=== PATIENT | female | born 1995 | race Two or more races ===

== ENCOUNTER 2016-12-29 04:45 | Emergency (ER) | payer OTHER ==
[2016-12-29] MEDS ORDERED: SODIUM CHLORIDE 0.9% 1,000 ML IV ONE ×2 (04:57→06:31)
[2016-12-29] MEDS ORDERED: ONDANSETRON 4 MG/2 ML VIAL IVP STA (04:57)
[2016-12-29] MEDS ORDERED: KETOROLAC 60 MG/2 ML VIAL IVP STA (06:31)
[2016-12-29] MEDS ORDERED: KETOROLAC 60 MG/2 ML VIAL ONE (06:56)
[2016-12-29] MEDS: KETOROLAC 60 MG/2 ML VIAL IM STA ×2 (06:59→07:04)
== END 2016-12-29 07:34 | disposition home or self-care (01) ==
DX: R10.31 Right lower quadrant pain (principal); F32.9 Major depressive disorder, single episode, unspecified; F41.9 Anxiety disorder, unspecified; J45.909 Unspecified asthma, uncomplicated; K21.9 Gastro-esophageal reflux disease without esophagitis

== ENCOUNTER 2018-04-16 12:48 | Emergency (ER) | payer OTHER ==
[2018-04-16 13:21] LABS: BILIRUBIN,URINE NEGATIVE (NEGATIVE); GLUCOSE, URINE (UA) NEGATIVE (NEGATIVE); KETONES,URINE (UA) NEGATIVE (NEGATIVE); LEUKOCYTE ESTERASE, URINE NEGATIVE (NEGATIVE); NITRITE,URINE NEGATIVE (NEGATIVE); OCCULT BLOOD,URINE NEGATIVE (NEGATIVE); PROTEIN,URINE NEGATIVE (NEGATIVE); UROBILINOGEN,URINE 0.2 (NORMAL) E.U./dL (NORMAL)
[2018-04-16 13:24] LABS: CLARITY,URINE CLEAR (CLEAR); HCG UR QUAL NEGATIVE
--- NOTE | 2018-04-16 14:23 | XRAY Report ---
Procedure Date: 04/16/2018 Accession Number: [id number] / [id number] Procedure: XR - Chest 2 View X-Ray CPT Code: 97340 FULL RESULT: EXAM: CHEST RADIOGRAPHY EXAM DATE: 04/16/2018 02:12 PM. CLINICAL HISTORY: Cough, dyspnea. COMPARISON: 09/29/15 TECHNIQUE: 2 views. FINDINGS: Lungs/Pleura: No focal opacities evident. No pleural effusion. No pneumothorax. Normal volumes. Mediastinum: Heart and mediastinal contours are unremarkable. Other: None. IMPRESSION: No acute findings 2-view chest radiography when compared with 09/29/15. Clear lungs. [facility]
[2018-04-16 15:32] VITALS: BP 133/74
--- NOTE | 2018-04-16 15:34 | ED Physician Documentation ---
PD HPI URI - Stated complaint Stated Complaint: SOA - Chief complaint Chief Complaint: Resp - History obtained from History obtained from: Patient - History of Present Illness Timing - onset: How many days ago (5-6 days of worse breathing, cough, congested sound and some productive cough. has had asthma with exac the past 1- 2 weeks.) Timing duration: Days Timing details: Gradual onset, Still present Associated symptoms: Nasal congestion, Productive cough, Dyspnea. No: Fever, Chills, Sore throat, Swollen nodes, Hemoptysis, NVD, Bilateral edema Contributing factors: COPD / asthma. No: Sick contact, Travel Similar symptoms before: Has not had sx before Recently seen: Not recently seen Review of Systems Constitutional: denies: Fever, Chills, Myalgias Nose: reports: Congestion. 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, Other : Chronic bladder infection HEENT: None Psych: Depression, Anxiety, Panic attacks, Claustrophobia Musculoskeletal: None Derm: None - Past Surgical History Past Surgical History: Yes Ortho: Arthroscopic surgery HEENT: Other - Present Medications Home Medications: Ambulatory Orders Medication Instructions Recorded Confirmed cloNIDine [Catapres] 0.1 mg PO DAILY 01/09/14 12/29/16 Albuterol Sulfate 2 mg INH ONCE PRN 09/10/14 12/29/16 Sumatriptan Succinate [Imitrex] 25 mg PO DAILY PRN #10 tablet 11/19/14 12/29/16 Cholecalciferol (Vitamin D3) 5,000 unit PO DAILY 04/22/15 12/29/16 [Vitamin D] Promethazine [Phenergan] 25 mg PO Q6H PRN #10 tab 09/29/15 12/29/16 Ibuprofen [Motrin] 800 mg PO Q8H PRN #30 tablet 04/15/16 12/29/16 Estradiol 1 patch 12/29/16 Azithromycin [Zithromax] 250 mg PO DAILY #6 tablet 04/16/18 Benzonatate [Tessalon] 100 mg PO TID PRN #25 capsule 04/16/18 Dexamethasone [Decadron] 4 mg PO DAILY #5 tablet 04/16/18 - Allergies Allergies/Adverse Reactions: Allergies Allergy/AdvReac Type Severity Reaction Status Date / Time amoxicillin Allergy Unknown Verified 04/16/18 13:04 doxycycline Allergy Unknown Verified 04/16/18 13:04 Penicillins Allergy Rash Verified 04/16/18 13:04 hydrocodone bitartrate * AdvReac Severe Emesis Verified 04/16/18 13:04 [From Vicodin] - Social History Does the pt smoke?: No Smoking Status: Never smoker Does the pt drink ETOH?: Yes Does the pt have substance abuse?: No - Immunizations Immunizations are current?: Yes - POLST Patient has POLST: No PD ED PE NORMAL - Vitals Vital signs reviewed: Yes - General General: Alert and oriented X 3, Well developed/nourished - HEENT HEENT: Ears normal, Moist mucous membranes, Pharynx benign - Neck Neck: Supple, no meningeal sign - Cardiac Cardiac: RRR, No murmur - Respiratory Respiratory: No: Clear bilaterally (exp wheezing noted and some hilar/central congestion with coughing. ) - Abdomen Abdomen: Soft, Non tender - Derm Derm: Normal color, Warm and dry, No rash - Extremities Extremities: No tenderness to palpate, Normal ROM s pain, No edema, No calf tenderness / cord - Neuro Neuro: Alert and oriented X 3, No motor deficit, Normal speech Results - Vitals Vitals: Oxygen O2 Source Room air - Labs Labs: Laboratory Tests 04/16/18 13:08 Urine Color YELLOW Urine Clarity CLEAR Urine pH 6.0 Ur Specific [place] 1.025 Urine Protein NEGATIVE Urine Glucose (UA) NEGATIVE Urine Ketones NEGATIVE Urine Occult Blood NEGATIVE Urine Nitrite NEGATIVE Urine Bilirubin NEGATIVE Urine Urobilinogen 0.2 (NORMAL) Ur Leukocyte Esterase NEGATIVE Ur Microscopic Review NOT INDICATED Urine Culture Comments NOT INDICATED Urine HCG, Qual NEGATIVE - Rads (name of study) chest xray Radiology: Prelim report reviewed, EMP read contemporaneously (no infiltrates) PD MEDICAL DECISION MAKING - ED course Complexity details: reviewed results, considered differential (has asthma and cough and has had icnreased symptoms, productive cough and worse breathing. CXR clear without pneumonia but sounds like bronchitis symptoms and concern for bacterial component at this point. ), d/w patient - Sepsis Event Vital Signs: Oxygen O2 Source Room air Departure - Departure Disposition: 01 Home, Self Care Clinical Impression: Bronchitis Condition: Stable Record reviewed to determine appropriate education?: Yes Instructions: ED Upper Resp Infec Abx Tx Follow-Up: Fide Marshall ARNP [Primary Care Provider] - Prescriptions: Azithromycin [Zithromax] 250 mg PO DAILY #6 tablet Benzonatate [Tessalon] 100 mg PO TID PRN #25 capsule PRN Reason: Cough Dexamethasone [Decadron] 4 mg PO DAILY #5 tablet Comments: Continue your albuterol inhaler 2 puffs 4 times a day and extra times as needed. Drink lots of fluids. Zithromax antibiotic as prescribed for 5 days. Decadron steroid for bronchial inflammation for 5 days. Add Tessalon if needed for cough. Recheck if not improving over the next several days to week. Forms: Activity restrictions Discharge Date/Time: 04/16/18 16:06
[2018-04-16] MEDS ORDERED: DEXAMETHASONE 10 MG/ML VIAL PO STA (15:55)
[2018-04-16] MEDS ORDERED: BENZONATATE 100 MG CAPSULE PO STA (15:55)
[2018-04-16] MEDS ORDERED: CHERRY SYRUP 10 ML UDC PO ONE (16:02)
== END 2018-04-16 16:06 | disposition home or self-care (01) ==
LOC: ED 12:48
DX: J40 Bronchitis, not specified as acute or chronic (principal); Z79.51 Long term (current) use of inhaled steroids
CPT/HCPCS: 71046; 81003; 81025; 99283; A9270; 81001; 87086

== ENCOUNTER 2018-05-07 16:53 | Emergency (ER) | payer OTHER ==
[2018-05-07] MEDS ORDERED: LACTATED RINGERS 1,000 ML IV STA (18:43)
[2018-05-07] MEDS ORDERED: SODIUM CHLORIDE 0.9% 1,000 ML IV ONE (18:43)
[2018-05-07] MEDS ORDERED: LOPERAMIDE 2 MG CAPSULE PO STA (18:43)
[2018-05-07] MEDS ORDERED: ONDANSETRON 4 MG/2 ML VIAL IVP STA (18:43)
--- NOTE | 2018-05-07 18:44 | ED Physician Documentation ---
PD HPI NVD - Stated complaint Stated Complaint: VOMITING - Chief complaint Chief Complaint: Abd Pain - History obtained from History obtained from: Patient, Friend - History of Present Illness Timing - onset: Other (23-year-old woman with history of fibromyalgia and rheumatoid arthritis and gabapentin, hydroxyzine, and BuSpar presents with 3 days of vomiting and diarrhea. She denies abdominal pain except for hunger but she cannot keep anything down. There is no blood from either end. No sick contacts. She traveled to [place] about 2 weeks ago, otherwise no international travel. No rashes. Reportedly had a fever to 101 last night.) Review of Systems Constitutional: reports: Fever Cardiac: denies: Chest pain / pressure, Palpitations Respiratory: denies: Dyspnea, Cough GI: reports: Nausea, Vomiting, Diarrhea. 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, Other : Chronic bladder infection HEENT: None Psych: Depression, Anxiety, Panic attacks, Claustrophobia Musculoskeletal: None Derm: None - Past Surgical History Past Surgical History: Yes Ortho: Arthroscopic surgery HEENT: Other - Present Medications Home Medications: Ambulatory Orders Medication Instructions Recorded Confirmed Albuterol Sulfate 2 mg INH ONCE PRN 09/10/14 12/29/16 Estradiol 1 patch 12/29/16 Gabapentin 1,600 mg DAILY 05/07/18 05/07/18 Loperamide [Imodium] 2 mg PO QID PRN #10 capsule 05/07/18 Ondansetron Odt [Zofran] 4 mg TL Q6H PRN #10 tablet 05/07/18 busPIRone [Buspar] 15 mg DAILY 05/07/18 05/07/18 - Allergies Allergies/Adverse Reactions: Allergies Allergy/AdvReac Type Severity Reaction Status Date / Time amoxicillin Allergy Unknown Verified 04/16/18 13:04 doxycycline Allergy Unknown Verified 04/16/18 13:04 Penicillins Allergy Rash Verified 04/16/18 13:04 hydrocodone bitartrate * AdvReac Severe Emesis Verified 04/16/18 13:04 [From Vicodin] - Social History Does the pt smoke?: No Smoking Status: Never smoker Does the pt drink ETOH?: Yes Does the pt have substance abuse?: No - Immunizations Immunizations are current?: Yes - POLST Patient has POLST: No PD ED PE NORMAL - Vitals Vital signs reviewed: Yes - General General: Alert and oriented X 3, No acute distress - HEENT HEENT: Moist mucous membranes - Cardiac Cardiac: RRR (But tachycardic consistent with dehydration), No murmur - Respiratory Respiratory: No respiratory distress, Clear bilaterally - Abdomen Abdomen: Normal bowel sounds, Soft, Non tender - Derm Derm: No rash - Neuro Neuro: Alert and oriented X 3, Normal speech - Psych Psych: Normal mood, Normal affect Results - Vitals Vitals: Vital Signs - 24 hr 05/07/18 05/07/18 17:11 21:14 Temperature 37.1 C 37 C Heart Rate 112 H 100 Respiratory 20 16 Rate Blood Pressure 127/87 H 112/65 O2 Saturation 100 100 Oxygen O2 Source Room air - Labs Labs: Laboratory Tests 05/07/18 05/07/18 05/07/18 19:12 20:25 20:59 WBC 9.6 RBC 4.43 Hgb 14.3 Hct 40.5 MCV 91.3 MCH 32.3 H MCHC 35.4 RDW 12.5 Plt Count 237 MPV 7.6 L Neut # (Auto) 5.6 Lymph # (Auto) 3.3 [place] # (Auto) 0.7 Eos # (Auto) 0.0 Baso # (Auto) 0.0 Absolute Nucleated RBC 0.01 Nucleated RBC % 0.1 Sodium 135 Potassium 3.6 Chloride 106 Carbon Dioxide 18 L Anion Gap 11.0 BUN Not Reportable Creatinine Not Reportable Estimated GFR (MDRD) Not Reportable Glucose 73 Calcium 8.4 L Total Bilirubin 0.7 AST 20 ALT 19 Alkaline Phosphatase 62 Total Protein 6.2 L Albumin 3.1 L Globulin 3.1 Albumin/Globulin Ratio 1.0 Lipase 23 Urine Color DARK YELLOW Urine Clarity CLEAR Urine pH 6.5 Ur Specific [place] 1.025 Urine Protein TRACE Urine Glucose (UA) NEGATIVE Urine Ketones >=80 H Urine Occult Blood NEGATIVE Urine Nitrite NEGATIVE Urine Bilirubin MODERATE H Urine Urobilinogen 1 (NORMAL) Ur Leukocyte Esterase NEGATIVE Ur Microscopic Review NOT INDICATED Urine Culture Comments NOT INDICATED Urine HCG, Qual 05/07/18 21:00 WBC RBC Hgb Hct MCV MCH MCHC RDW Plt Count MPV Neut # (Auto) Lymph # (Auto) [place] # (Auto) Eos # (Auto) Baso # (Auto) Absolute Nucleated RBC Nucleated RBC % Sodium Potassium Chloride Carbon Dioxide Anion Gap BUN Creatinine Estimated GFR (MDRD) Glucose Calcium Total Bilirubin AST ALT Alkaline Phosphatase Total Protein Albumin Globulin Albumin/Globulin Ratio Lipase Urine Color Urine Clarity Urine pH Ur Specific [place] 1.025 Urine Protein Urine Glucose (UA) Urine Ketones Urine Occult Blood Urine Nitrite Urine Bilirubin Urine Urobilinogen Ur Leukocyte Esterase Ur Microscopic Review Urine Culture Comments Urine HCG, Qual NEGATIVE PD MEDICAL DECISION MAKING - ED course ED course: 23-year-old woman presents with vomiting and diarrhea and symptoms consistent with dehydration. She was administered IV fluids, Zofran and Imodium with improvement in her symptoms. Her initial blood draw was hemolyzed and had to be on and she had a panic attack during the redrawing was also administered Ativan with good improvement. She passed an oral challenge. She remained nontender on reevaluation prior to discharge. - Sepsis Event Vital Signs: Vital Signs - 24 hr 05/07/18 05/07/18 17:11 21:14 Temperature 37.1 C 37 C Heart Rate 112 H 100 Respiratory 20 16 Rate Blood Pressure 127/87 H 112/65 O2 Saturation 100 100 Oxygen O2 Source Room air Departure - Departure Disposition: Home, Self Care Clinical Impression: Dehydration, Gastroenteritis Condition: Good Record reviewed to determine appropriate education?: Yes Instructions: ED Dehydration, ED Gastroenteritis Viral Prescriptions: Loperamide [Imodium] 2 mg PO QID PRN #10 capsule PRN Reason: Diarrhea Ondansetron Odt [Zofran] 4 mg TL Q6H PRN #10 tablet PRN Reason: Nausea / Vomiting Comments: Call your doctor to arrange a follow-up appointment, make the next available appointment. In the interim, return anytime if worse or if new symptoms develop.
[2018-05-07 19:17] LABS: BASOPHILS % (AUTO) 0.5 %; EOSINOPHILS % (AUTO) 0.1 %; HGB - HEMOGLOBIN 14.3 g/dL (12.0-16.0); LYMPHOCYTES # (AUTO) 3.3 10^3/uL (1.5-3.5); LYMPHOCYTES % (AUTO) 33.9 %; MEAN CORPUSCULAR HEMOGLOBIN 32.3 pg (27.0-31.0); MEAN CORPUSCULAR HGB CONC 35.4 g/dL (32.0-36.0); MEAN CORPUSCULAR VOLUME 91.3 fL (81.0-99.0); MEAN PLATELET VOLUME 7.6 fL (7.9-10.8); MONOCYTES # (AUTO) 0.7 10^3/uL (0.0-1.0); MONOCYTES % (AUTO) 6.8 %; NEUTROPHILS # (AUTO) 5.6 10^3/uL (1.5-6.6); NEUTROPHILS % (AUTO) 58.7 %; PLT - PLATELET COUNT 237 10^3/uL (130-450); RED BLOOD COUNT 4.43 10^6/uL (4.20-5.40); RED CELL DISTRIBUTION WIDTH 12.5 % (12.0-15.0); WHITE BLOOD COUNT 9.6 x10^3/uL (4.8-10.8)
[2018-05-07] MEDS ORDERED: LORazepam 2 MG/ML VIAL IVP STA (19:36)
[2018-05-07 20:57] LABS: ALBUMIN 3.1 g/dL (3.2-5.5); ALKALINE PHOSPHATASE 62 IU/L (42-121); ALT ALANINE AMINOTRANSFERASE 19 IU/L (10-60); AST ASPARTATE AMINOTRANSFERASE 20 IU/L (10-42); BILIRUBIN,TOTAL 0.7 mg/dL (0.2-1.0); CALCIUM 8.4 mg/dL (8.5-10.3); CARBON DIOXIDE - CO2 18 mmol/L (21-32); CHLORIDE 106 mmol/L (101-111); GLUCOSE 73 mg/dL (70-100); LIPASE 23 U/L (22-51); SODIUM 135 mmol/L (135-145); TOTAL PROTEIN 6.2 g/dL (6.7-8.2)
[2018-05-07 21:06] LABS: GLUCOSE, URINE (UA) NEGATIVE (NEGATIVE); KETONES,URINE (UA) >=80 mg/dL (NEGATIVE); LEUKOCYTE ESTERASE, URINE NEGATIVE (NEGATIVE); NITRITE,URINE NEGATIVE (NEGATIVE); OCCULT BLOOD,URINE NEGATIVE (NEGATIVE); PH,URINE 6.5 PH (5.0-7.5); PROTEIN,URINE TRACE mg/dL (NEGATIVE); UROBILINOGEN,URINE 1 (NORMAL) E.U./dL (NORMAL)
[2018-05-07 21:07] LABS: CLARITY,URINE CLEAR (CLEAR)
[2018-05-07 21:10] LABS: BILIRUBIN,URINE MODERATE (NEGATIVE); ICTOTEST,URINE POSITIVE
[2018-05-07 21:38] LABS: HCG UR QUAL NEGATIVE
[2018-05-07] MEDS ORDERED: ONDANSETRON ODT 4 MG Prepack 2 TL STA (21:47)
[2018-05-07 22:27] VITALS: BP 112/75
== END 2018-05-07 22:28 | disposition home or self-care (01) ==
LOC: ED 16:53
DX: E86.0 Dehydration (principal); K52.9 Noninfective gastroenteritis and colitis, unspecified
CPT/HCPCS: 80053; 81003; 81025; 83690; 85025; 96361; 96374; 96375; 99283; A9270; J2060; J7120; 81001; 87086

== ENCOUNTER 2019-06-14 07:00 | Outpatient (CLI) | payer OTHER | END 2019-06-14 23:59 | disposition home or self-care (01) | LOC: LAB.R 07:00 | PROVIDERS: ATTEND Registered Nurse | DX: R30.0 Dysuria (principal) | CPT/HCPCS: 87086 ==

== ENCOUNTER 2019-07-11 01:02 | Emergency (ER) | payer OTHER ==
--- NOTE | 2019-07-11 01:26 | ED Physician Documentation ---
PD HPI BACK INJURY - Stated complaint Stated Complaint: BACK PAIN - History obtained from History obtained from: Patient, Family - History of Present Illness Location: Lower Type of injury: Fall Where injury occurred: Home Timing - onset: Today Timing - duration: Minutes Timing - details: Abrupt onset, Still present Quality: Pain, Spasm, Sharp Improved by: Rest, Immobilization Worsened by: Moving, Palpating Associated symptoms: No: Fever, Weakness, Numbness, Incontinent of urine, Unable to urinate, Hematuria, Incontinent of stool Contributing factors: No: Anticoagulated Similar symptoms before: Diagnosis (back spasm) Recently seen: Not recently seen - Additional information Additional information: Previously well 24-year-old female was dancing with her when she had a fall and she fell flat onto her back. She did this about 1 week ago or 6 days ago and she has had worsening pain and tonight it is intolerable. She does have some allergy to hydrocodone which makes her vomit violently she is able to take Percocet. She has been using a heating pack tonight but had not been using it previously. She has pain when she goes to move. She has been going to work and the pain is worsening. 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, Other : Chronic bladder infection HEENT: None Psych: Depression, Anxiety, Panic attacks, Claustrophobia Musculoskeletal: None Derm: None - Past Surgical History Past Surgical History: Yes Ortho: Arthroscopic surgery HEENT: Other - Present Medications Home Medications: Ambulatory Orders Medication Instructions Recorded Confirmed Albuterol Sulfate 2 mg INH ONCE PRN 09/10/14 12/29/16 Estradiol 1 patch 12/29/16 Gabapentin 1,600 mg DAILY 05/07/18 05/07/18 Loperamide [Imodium] 2 mg PO QID PRN #10 capsule 05/07/18 Ondansetron Odt [Zofran] 4 mg TL Q6H PRN #10 tablet 05/07/18 busPIRone [Buspar] 15 mg DAILY 05/07/18 05/07/18 Cyclobenzaprine [Flexeril] 10 mg PO TID PRN #20 tablet 07/11/19 Oxycodone HCl/Acetaminophen 1 - 2 each PO Q6H PRN #14 tablet 07/11/19 [Percocet 5-325 mg Tablet] - Allergies Allergies/Adverse Reactions: Allergies Allergy/AdvReac Type Severity Reaction Status Date / Time amoxicillin Allergy Unknown Verified 07/11/19 01:11 doxycycline Allergy Unknown Verified 07/11/19 01:11 Penicillins Allergy Rash Verified 07/11/19 01:11 hydrocodone bitartrate * AdvReac Severe Emesis Verified 07/11/19 01:11 [From Vicodin] - Social History Does the pt smoke?: No Smoking Status: Never smoker Does the pt drink ETOH?: Yes Does the pt have substance abuse?: No - Immunizations Immunizations are current?: Yes - POLST Patient has POLST: No PD ED PE NORMAL - Vitals Vital signs reviewed: Yes (hypertensive) - General General: Alert and oriented X 3, No acute distress, Well developed/nourished - HEENT HEENT: Atraumatic, PERRL, EOMI - Neck Neck: Supple, no meningeal sign, No bony TTP - Respiratory Respiratory: No respiratory distress - Back Back: No CVA TTP, No spinal TTP, Other (There is paraspinous muscle tenderness to the lower lumbar spine bilaterally there is not midline tenderness. 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, No motor deficit, No sensory deficit, Normal speech Eye Opening: Spontaneous Motor: Obeys Commands Verbal: Oriented GCS Score: 15 - Psych Psych: Normal mood, Normal affect Results - Vitals Vitals: Vital Signs - 24 hr 07/11/19 07/11/19 01:09 02:33 Temperature 37 C Heart Rate 80 76 Respiratory 17 16 Rate Blood Pressure 124/91 H 114/91 H O2 Saturation 100 100 Oxygen O2 Source Room air - Rads (name of study) lumbar spine Radiology: Prelim report reviewed (Impression: Normal lumbar spine radiography), EMP read indepedently, See rad report PD MEDICAL DECISION MAKING - ED course Complexity details: reviewed results, re-evaluated patient, considered differential, d/w patient, d/w family ED course: 24-year-old female with a fall and worsening back pain appears to have spasm in the lower lumbar muscles. She is administered dexamethasone 10 mg PO and Toradol 60 mg IM. She has a history of worsening of her back pain and with this fall a lumbar spine x-ray is obtained to rule out compression fracture. Departure - Departure Disposition: 01 Home, Self Care Clinical Impression: Lumbar spine strain Qualifiers: Encounter type: initial encounter Qualified Code(s): S39.012A - Strain of muscle, fascia and tendon of lower back, initial encounter Condition: Stable Instructions: ED Low Back Pain Injury, ED Sprain Strain Lumbar Follow-Up: Lorrie Monaco ARNP [Primary Care Provider] - Prescriptions: Cyclobenzaprine [Flexeril] 10 mg PO TID PRN #20 tablet PRN Reason: Spasms Oxycodone HCl/Acetaminophen [Percocet 5-325 mg Tablet] 1 - 2 each PO Q6H PRN #14 tablet PRN Reason: pain Forms: Activity restrictions
[2019-07-11] MEDS ORDERED: DEXAMETHASONE 10 MG/ML VIAL PO STA (01:36)
[2019-07-11] MEDS ORDERED: KETOROLAC 60 MG/2 ML VIAL IM STA (01:36)
[2019-07-11] MEDS ORDERED: CHERRY SYRUP 10 ML UDC PO ONE (01:36)
[2019-07-11] MEDS ORDERED: CYCLOBENZAPRINE 10 MG Prepack 2 PO PRN (02:20)
[2019-07-11] MEDS ORDERED: oxyCODONE/ACET 5/325 Prepack 4 PO STA (02:20)
--- NOTE | 2019-07-11 02:26 | XRAY Report ---
Reason: fall low back pain worsening Procedure Date: 07/11/2019 Accession Number: [id number] / [id number] Procedure: XR - Lumbar Spine 2 View CPT Code: Final Report FULL RESULT: EXAM: LUMBOSACRAL SPINE RADIOGRAPHY EXAM DATE: 07/11/2019 02:08 AM. CLINICAL HISTORY: Fall low back pain worsening. COMPARISONS: None. TECHNIQUE: 3 views. FINDINGS: Alignment: Normal. No spondylolisthesis or scoliosis. Bones: Five [id number] lumbar vertebral bodies are present. No fractures or bone lesions. Disks: Normal. Disk heights are maintained. Facets: No degenerative changes. Sacroiliac Joints: Unremarkable. Soft Tissues: Normal. The visualized bowel gas pattern is normal. IMPRESSION: Normal lumbar spine radiography. [facility]
[2019-07-11 02:34] VITALS: BP 114/91
== END 2019-07-11 02:34 | disposition home or self-care (01) ==
LOC: ED 01:02
DX: S39.012A Strain of muscle, fascia and tendon of lower back, initial encounter (principal); W18.39XA Other fall on same level, initial encounter; Y93.41 Activity, dancing; Y92.009 Unspecified place in unspecified non-institutional (private) residence as the place of occurrence of the external cause; M62.830 Muscle spasm of back; Z88.5 Allergy status to narcotic agent
CPT/HCPCS: 72100; 96372; 99283; 99284; A9270

== ENCOUNTER 2019-08-08 12:36 | Emergency (ER) | payer OTHER ==
[2019-08-08 12:46] VITALS: BP 111/71
--- NOTE | 2019-08-08 13:29 | ED Physician Documentation ---
PD HPI ABD PAIN - Stated complaint Stated Complaint: ABD PX/BACK PX/DIZZY - Chief complaint Chief Complaint: Abd Pain - History obtained from History obtained from: Patient - History of Present Illness Timing - onset: How many weeks ago (several weeks) Timing - duration: Weeks Timing - details: Gradual onset Pain level max: 8 Pain level now: 2 Quality: Aching, Pain Location: Epigastric Radiation: No: Chest, , Lower back, Left flank, Left shoulder, Right flank, Right shoulder, Upper back Improved by: Other (nothing) Worsened by: Eating Associated symptoms: Vomiting (occasionally when the pain is severe). No: Fever, Nausea, Hematemesis, Diarrhea, Constipation, Melena, Hematochezia, Dysuria, Hematuria, Chest pain, Dizzy, Near syncope / syncope, Loss of appetite, Weight loss, Vaginal bleeding, Vaginal dc Similar symptoms before: Has not had sx before Recently seen: Clinic (seen by PCP x 2) Review of Systems Constitutional: denies: Fever, Chills Nose: denies: Rhinorrhea / runny nose, Congestion GI: denies: Diarrhea, Hematemesis, Bloody / black stool Skin: denies: Rash Musculoskeletal: denies: Neck pain, Back pain Neurologic: denies: Generalized weakness 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, Other [employer]: Ovarian cysts, Other : Chronic bladder infection HEENT: None Psych: Depression, Anxiety, Panic attacks, Claustrophobia Musculoskeletal: Fibromyalgia, Other Derm: None Other Past Medical History: Lupus - Past Surgical History Past Surgical History: Yes Ortho: Arthroscopic surgery HEENT: Other - Present Medications Home Medications: Ambulatory Orders Medication Instructions Recorded Confirmed Albuterol Sulfate 2 mg INH ONCE PRN 09/10/14 12/29/16 Estradiol 1 patch 12/29/16 Gabapentin 1,600 mg DAILY 05/07/18 05/07/18 Loperamide [Imodium] 2 mg PO QID PRN #10 capsule 05/07/18 Ondansetron Odt [Zofran] 4 mg TL Q6H PRN #10 tablet 05/07/18 busPIRone [Buspar] 15 mg DAILY 05/07/18 05/07/18 Cyclobenzaprine [Flexeril] 10 mg PO TID PRN #20 tablet 11/14/19 Oxycodone HCl/Acetaminophen 1 - 2 each PO Q6H PRN #14 tablet 07/11/19 [Percocet 5-325 mg Tablet] Famotidine [Pepcid] 20 mg PO BID #60 tablet 08/08/19 Hyoscyamine Sulfate [Levsin-Sl] 0.125 mg SL Q6H PRN #14 tab.subl 08/08/19 Sucralfate [Carafate] 1 gm PO ACHS #60 tablet 08/08/19 - Allergies Allergies/Adverse Reactions: Allergies Allergy/AdvReac Type Severity Reaction Status Date / Time amoxicillin Allergy Unknown Verified 08/08/19 12:46 doxycycline Allergy Unknown Verified 08/08/19 12:46 Penicillins Allergy Rash Verified 08/08/19 12:46 hydrocodone bitartrate * AdvReac Severe Emesis Verified 08/08/19 12:46 [From Vicodin] - Social History Does the pt smoke?: No Smoking Status: Never smoker Does the pt drink ETOH?: Yes Does the pt have substance abuse?: Yes Substance Use and Type: Marijuana - Immunizations Immunizations are current?: Yes - POLST Patient has POLST: No PD ED PE NORMAL - Vitals Vital signs reviewed: Yes - General General: Alert and oriented X 3, No acute distress, Well developed/nourished - HEENT HEENT: PERRL, Ears normal, Moist mucous membranes, Pharynx benign - Neck Neck: Supple, no meningeal sign - Cardiac Cardiac: RRR, Strong equal pulses - Respiratory Respiratory: No respiratory distress, Clear bilaterally - Abdomen Abdomen: Normal bowel sounds, Soft, Non tender, Non distended - Back Back: No CVA TTP, No spinal TTP - Derm Derm: Warm and dry - Extremities Extremities: No edema - Neuro Neuro: Alert and oriented X 3 - Psych Psych: Normal mood, Normal affect Results - Vitals Vitals: Vital Signs - 24 hr 08/08/19 12:41 Temperature 36.6 C Heart Rate 75 Respiratory 16 Rate Blood Pressure 111/71 O2 Saturation 98 Oxygen O2 Source Room air - Labs Labs: Laboratory Tests 08/08/19 08/08/19 08/08/19 12:55 13:35 13:35 WBC 6.1 RBC 3.83 L Hgb 12.7 Hct 36.4 L MCV 95.0 MCH 33.2 H MCHC 34.9 RDW 12.2 Plt Count 277 MPV 9.4 Neut # (Auto) 3.0 Lymph # (Auto) 2.7 [place] # (Auto) 0.3 Eos # (Auto) 0.1 Baso # (Auto) 0.0 Absolute Nucleated RBC 0.00 Nucleated RBC % 0.0 Sodium 138 Potassium 3.8 Chloride 109 Carbon Dioxide 21 Anion Gap 8.0 BUN 11 Creatinine 0.6 Estimated GFR (MDRD) 123 Glucose 94 Calcium 8.5 Total Bilirubin 0.6 AST 16 ALT 12 Alkaline Phosphatase 52 Total Protein 6.8 Albumin 3.5 Globulin 3.3 Albumin/Globulin Ratio 1.1 Lipase 24 Urine Color YELLOW Urine Clarity CLEAR Urine pH 7.0 Ur Specific [place] 1.010 Urine Protein NEGATIVE Urine Glucose (UA) NEGATIVE Urine Ketones NEGATIVE Urine Occult Blood NEGATIVE Urine Nitrite NEGATIVE Urine Bilirubin NEGATIVE Urine Urobilinogen 0.2 (NORMAL) Ur Leukocyte Esterase NEGATIVE Ur Microscopic Review NOT INDICATED Urine Culture Comments NOT INDICATED Urine HCG, Qual NEGATIVE PD MEDICAL DECISION MAKING - ED course Complexity details: reviewed results, re-evaluated patient, considered differential, d/w patient ED course: Patient presents to the emergency department with abdominal pain. Possible gastritis? Possible IBS? We will trial on H2 blockers for home. No significant lab abnormalities. She is very well-appearing, nontoxic. Abdomen soft, nontender nondistended on serial exam. Patient counseled regarding signs and symptoms for which I believe and urgent re-evaluation would be necessary. Patient with good understanding of and agreement to plan and is comfortable going home at this time This document was made in part using voice recognition software. While efforts are made to proofread this document, sound alike and grammatical errors may occur. Departure - Departure Disposition: 01 Home, Self Care Clinical Impression: Abdominal pain Qualifiers: Abdominal location: unspecified location Qualified Code(s): R10.9 - Unspecified abdominal pain Condition: Good Instructions: ED Abdominal Pain Unkn Cause Follow-Up: Lorrie Monaco ARNP [Primary Care Provider] - Within 1 week Prescriptions: Famotidine [Pepcid] 20 mg PO BID #60 tablet Hyoscyamine Sulfate [Levsin-Sl] 0.125 mg SL Q6H PRN #14 tab.subl PRN Reason: Abdominal Pain Sucralfate [Carafate] 1 gm PO ACHS #60 tablet Comments: The cause of your symptoms is unclear. It may be related to gastritis. Your doctor may want to order an endoscopy and colonoscopy for you. Return if you worsen. Discharge Date/Time: 08/08/19 14:56
[2019-08-08] MEDS: LIDOCAINE VISCOUS 2% 15 ML UDC MM STA ×2 (13:35→14:12)
[2019-08-08] MEDS: FAMOTIDINE 20 MG TABLET PO STA ×2 (13:35→13:40)
[2019-08-08] MEDS: SUCRALFATE 1 GM/10 ML UDC PO STA ×2 (13:35→13:40)
[2019-08-08] MEDS: MAG HYDROX/AL HYDROX/SIMETH 30 ML UDC PO STA ×2 (13:35→14:12)
[2019-08-08 13:41] LABS: BASOPHILS % (AUTO) 0.5 %; EOSINOPHILS # (AUTO) 0.1 10^3/uL (0.0-0.7); EOSINOPHILS % (AUTO) 1.3 %; HGB - HEMOGLOBIN 12.7 g/dL (12.0-16.0); LYMPHOCYTES # (AUTO) 2.7 10^3/uL (1.5-3.5); LYMPHOCYTES % (AUTO) 44.7 %; MEAN CORPUSCULAR HEMOGLOBIN 33.2 pg (27.0-31.0); MEAN CORPUSCULAR HGB CONC 34.9 g/dL (32.0-36.0); MEAN PLATELET VOLUME 9.4 fL (7.9-10.8); MONOCYTES # (AUTO) 0.3 10^3/uL (0.0-1.0); MONOCYTES % (AUTO) 4.8 %; NEUTROPHILS % (AUTO) 48.5 %; PLT - PLATELET COUNT 277 10^3/uL (130-450); RED BLOOD COUNT 3.83 10^6/uL (4.20-5.40); RED CELL DISTRIBUTION WIDTH 12.2 % (12.0-15.0); WHITE BLOOD COUNT 6.1 x10^3/uL (4.8-10.8)
[2019-08-08 13:53] LABS: BILIRUBIN,URINE NEGATIVE (NEGATIVE); GLUCOSE, URINE (UA) NEGATIVE (NEGATIVE); KETONES,URINE (UA) NEGATIVE (NEGATIVE); LEUKOCYTE ESTERASE, URINE NEGATIVE (NEGATIVE); NITRITE,URINE NEGATIVE (NEGATIVE); OCCULT BLOOD,URINE NEGATIVE (NEGATIVE); PROTEIN,URINE NEGATIVE (NEGATIVE); UROBILINOGEN,URINE 0.2 (NORMAL) E.U./dL (NORMAL)
[2019-08-08 13:53] LABS: ALBUMIN 3.5 g/dL (3.2-5.5); ALBUMIN/GLOBULIN RATIO 1.1 (1.0-2.2); BILIRUBIN,TOTAL 0.6 mg/dL (0.2-1.0); CALCIUM 8.5 mg/dL (8.5-10.3); CREATININE 0.6 mg/dL (0.4-1.0); TOTAL PROTEIN 6.8 g/dL (6.7-8.2)
[2019-08-08 13:56] LABS: CLARITY,URINE CLEAR (CLEAR); HCG UR QUAL NEGATIVE
== END 2019-08-08 14:56 | disposition home or self-care (01) ==
LOC: ED 12:36
DX: R10.9 Unspecified abdominal pain (principal)
CPT/HCPCS: 36415; 80053; 81003; 81025; 83690; 85025; 99283; 99284; A9270; 81001; 87086

== ENCOUNTER 2019-09-25 04:00 | Emergency (ER) | payer OTHER ==
[2019-09-25] MEDS ORDERED: ONDANSETRON 4 MG/2 ML VIAL IVP STA (04:20)
[2019-09-25] MEDS ORDERED: SODIUM CHLORIDE 0.9% 1,000 ML IV STA (04:20)
--- NOTE | 2019-09-25 04:20 | ED Physician Documentation ---
History of Present Illness - Stated complaint Stated Complaint: FEVER - Chief complaint Chief Complaint: General - History obtained from History obtained from: Patient (24-year-old History of lupus presented with 1 day history of fever, cough, congestion, rhinorrhea. According to her over the last few hours, she is not able to drink any fluid. Every time she drinks she vomits up. She also coughed to the point she vomited. There has been no sick contact recently. In emergency room she is complained of mild abdominal discomfort the right upper quadrant. No hematuria no dysuria.) - History of Present Illness Timing: Today Pain level max: 6 Pain level now: 6 Review of Systems Ten Systems: 10 systems reviewed and negative Constitutional: reports: Reviewed and negative Eyes: reports: Reviewed and negative Ears: reports: Reviewed and negative Nose: reports: Reviewed and negative Throat: reports: Reviewed and negative Cardiac: reports: Reviewed and negative Respiratory: reports: Reviewed and negative GI: reports: Abdominal Pain, Nausea, Vomiting, Reviewed and negative : reports: Reviewed and negative Skin: reports: Reviewed and negative Musculoskeletal: reports: Reviewed and negative Neurologic: reports: Reviewed and negative Psychiatric: reports: Reviewed and negative Endocrine: reports: Reviewed and negative Immunocompromised: reports: Reviewed and negative 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, 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, Other : Chronic bladder infection HEENT: None Psych: Depression, Anxiety, Panic attacks, Claustrophobia Musculoskeletal: Fibromyalgia, Other Derm: None - Past Surgical History Past Surgical History: Yes Ortho: Arthroscopic surgery HEENT: Other - Present Medications Home Medications: Ambulatory Orders Medication Instructions Recorded Confirmed Albuterol Sulfate 2 mg INH ONCE PRN 09/10/14 12/29/16 estradioL [Estradiol] 1 patch 12/29/16 Gabapentin 1,600 mg DAILY 05/07/18 05/07/18 Loperamide [Imodium] 2 mg PO QID PRN #10 capsule 05/07/18 Ondansetron Odt [Zofran] 4 mg TL Q6H PRN #10 tablet 05/07/18 busPIRone [Buspar] 15 mg DAILY 05/07/18 05/07/18 Cyclobenzaprine [Flexeril] 10 mg PO TID PRN #20 tablet 07/11/19 Oxycodone HCl/Acetaminophen 1 - 2 each PO Q6H PRN #14 tablet 07/11/19 [Percocet 5-325 mg Tablet] Famotidine [Pepcid] 20 mg PO BID #60 tablet 08/08/19 Hyoscyamine Sulfate [Levsin-Sl] 0.125 mg SL Q6H PRN #14 tab.subl 08/08/19 Sucralfate [Carafate] 1 gm PO ACHS #60 tablet 08/08/19 Azithromycin [Zithromax] 250 mg PO DAILY #4 tablet 09/25/19 - Allergies Allergies/Adverse Reactions: Allergies Allergy/AdvReac Type Severity Reaction Status Date / Time amoxicillin Allergy Unknown Verified 08/08/19 12:46 doxycycline Allergy Unknown Verified 08/08/19 12:46 Penicillins Allergy Rash Verified 08/08/19 12:46 hydrocodone bitartrate * AdvReac Severe Emesis Verified 08/08/19 12:46 [From Vicodin] - Social History Does the pt smoke?: No Smoking Status: Never smoker Does the pt drink ETOH?: Yes Does the pt have substance abuse?: Yes - Immunizations Immunizations are current?: Yes - POLST Patient has POLST: No PD ED PE NORMAL - Vitals Vital signs reviewed: Yes - General General: Alert and oriented X 3, No acute distress - HEENT HEENT: PERRL, Other (Dry oral mucosa) - Neck Neck: Supple, no meningeal sign - Cardiac Cardiac: RRR, No murmur - Respiratory Respiratory: Clear bilaterally - Abdomen Abdomen: Normal bowel sounds, Soft, Non tender (Right upper quadrant abdominal discomfort on deep palpation), Non distended - Derm Derm: Warm and dry - Extremities Extremities: No deformity - Neuro Neuro: Alert and oriented X 3 - Psych Psych: Normal mood, Normal affect Results - Vitals Vitals: Vital Signs - 24 hr 09/25/19 09/25/19 04:11 06:55 Temperature 37.3 C 37.0 C Heart Rate 135 H 129 H Respiratory 26 H 16 Rate Blood Pressure 119/86 H 105/62 O2 Saturation 97 99 Oxygen O2 Source Room air - EKG (time done) No standard instances Rate: Rate (enter#) (126) Rhythm: Sinus tachycardia [place]: Normal Intervals: Normal [place] QRS: Normal Ischemia: Normal ST segments - Labs Labs: Laboratory Tests 09/25/19 09/25/19 09/25/19 04:30 04:30 04:30 WBC 14.2 H RBC 4.16 L Hgb 13.4 Hct 38.7 MCV 93.0 MCH 32.2 H MCHC 34.6 RDW 12.0 Plt Count 288 MPV 9.2 Neut # (Auto) 11.9 H Lymph # (Auto) 1.5 [place] # (Auto) 0.6 Eos # (Auto) 0.0 Baso # (Auto) 0.0 Absolute Nucleated RBC 0.00 Nucleated RBC % 0.0 Sodium 133 L Potassium 3.4 L Chloride 100 L Carbon Dioxide 22 Anion Gap 11.0 BUN 6 Creatinine 0.7 Estimated GFR (MDRD) 103 Glucose 114 H Calcium 8.6 Total Bilirubin 0.5 AST 15 ALT 12 Alkaline Phosphatase 57 Total Protein 7.0 Albumin 3.6 Globulin 3.4 Albumin/Globulin Ratio 1.1 Lipase 23 Urine Color YELLOW Urine Clarity CLEAR Urine pH 7.0 Ur Specific [place] 1.015 Urine Protein NEGATIVE Urine Glucose (UA) NEGATIVE Urine Ketones NEGATIVE Urine Occult Blood NEGATIVE Urine Nitrite NEGATIVE Urine Bilirubin NEGATIVE Urine Urobilinogen 0.2 (NORMAL) Ur Leukocyte Esterase TRACE H Urine RBC 0-5 Urine WBC 4-5 Ur Squamous Epith Cells MOD Squamous H Urine Bacteria Few Ur Microscopic Review INDICATED Urine Culture Comments NOT INDICATED Urine HCG, Qual NEGATIVE PD MEDICAL DECISION MAKING - ED course ED course: Young female presented to the emergency room with fever, cough, congestion. Differential diagnosis includes viral illness, influenza, there is associated abdominal pain. Rapid quadrant abdominal pain differential include pancreatitis, cholecystitis, diverticulitis, ovarian cyst, renal calculi, cystitis. At 445 hours going to the room to attend her question. She would like to change the nurse because of some concern she had. She does appear very anxious and request to have some anxiolytic. At this time she refused influenza test. I told her her symptomsOf rhinorrhea, fever, congestion array consistent with viral illness which include influenza. she still refused. Patient is reassessed at 540 intakes close laboratory result of mildly elevated white blood cell count. At this time she has received a liter of normal saline, she is still tachycardic heart rate 140. We will administer a liter of fluid. She still refused to have a influenza test done. Obviously I cannot force her to do it. She is disclosed impression of possible viral illness which may include influenza.I told her that if she is positive for influenza, with Tamiflu, her symptoms may be subsided and shortened. She again refused. At 655, patient is reassessed. She is disclose laboratory result with mild leukocytosis, chest x-ray evidence of a questionable infiltrate in the left side lung zone. She is given first dose of Zithromax 500 mg in emergency room with a prescription for the next 4 days. She is asked to follow with her primary care doctor in the next for 5 days for reassessment. Departure - Departure Disposition: 01 Home, Self Care Clinical Impression: Pneumonia Qualifiers: Pneumonia type: due to unspecified organism Laterality: left Lung location: lower lobe of lung Qualified Code(s): J18.9 - Pneumonia, unspecified organism Condition: Stable Record reviewed to determine appropriate education?: Yes Instructions: ED Pneumonia Adult Follow-Up: Lorrie Monaco ARNP [Primary Care Provider] - Prescriptions: Azithromycin [Zithromax] 250 mg PO DAILY #4 tablet Comments: Patient was instructed to follow-up with her primary care doctor in the next 5 to 7 days for reassessment. If there is worsening shortness of breath or symptoms, return to the emergency room for further management. Discharge Date/Time: 09/25/19 07:10
[2019-09-25 04:42] LABS: BILIRUBIN,URINE NEGATIVE (NEGATIVE); GLUCOSE, URINE (UA) NEGATIVE (NEGATIVE); KETONES,URINE (UA) NEGATIVE (NEGATIVE); LEUKOCYTE ESTERASE, URINE TRACE (NEGATIVE); NITRITE,URINE NEGATIVE (NEGATIVE); OCCULT BLOOD,URINE NEGATIVE (NEGATIVE); PROTEIN,URINE NEGATIVE (NEGATIVE); UROBILINOGEN,URINE 0.2 (NORMAL) E.U./dL (NORMAL)
[2019-09-25 04:43] LABS: BASOPHILS % (AUTO) 0.2 %; EOSINOPHILS % (AUTO) 0.3 %; HGB - HEMOGLOBIN 13.4 g/dL (12.0-16.0); LYMPHOCYTES # (AUTO) 1.5 10^3/uL (1.5-3.5); LYMPHOCYTES % (AUTO) 10.8 %; MEAN CORPUSCULAR HEMOGLOBIN 32.2 pg (27.0-31.0); MEAN CORPUSCULAR HGB CONC 34.6 g/dL (32.0-36.0); MEAN PLATELET VOLUME 9.2 fL (7.9-10.8); MONOCYTES # (AUTO) 0.6 10^3/uL (0.0-1.0); MONOCYTES % (AUTO) 4.4 %; NEUTROPHILS # (AUTO) 11.9 10^3/uL (1.5-6.6); NEUTROPHILS % (AUTO) 83.8 %; PLT - PLATELET COUNT 288 10^3/uL (130-450); RED BLOOD COUNT 4.16 10^6/uL (4.20-5.40); WHITE BLOOD COUNT 14.2 x10^3/uL (4.8-10.8)
[2019-09-25 04:45] LABS: CLARITY,URINE CLEAR (CLEAR); HCG UR QUAL NEGATIVE
[2019-09-25] MEDS ORDERED: LORazepam 2 MG/ML VIAL IVP STA (04:46)
[2019-09-25 04:50] LABS: BACTERIA,URINE Few /HPF (None Seen); RBC,URINE 0-5 /HPF (0-5); SQUAMOUS EPITHELIAL CELL,UR MOD Squamous (<= Few)
[2019-09-25 04:56] LABS: ALBUMIN 3.6 g/dL (3.2-5.5); ALBUMIN/GLOBULIN RATIO 1.1 (1.0-2.2); BILIRUBIN,TOTAL 0.5 mg/dL (0.2-1.0); CALCIUM 8.6 mg/dL (8.5-10.3); CREATININE 0.7 mg/dL (0.4-1.0)
[2019-09-25] MEDS ORDERED: SODIUM CHLORIDE 0.9% 1,000 ML IV ONE (05:42)
--- NOTE | 2019-09-25 06:48 | XRAY Report ---
Reason: cough Procedure Date: 09/25/2019 Accession Number: [id number] / [id number] Procedure: XR - Chest 2 View X-Ray CPT Code: 35260 Final Report FULL RESULT: EXAM: CHEST RADIOGRAPHY EXAM DATE: 09/25/2019 06:36 AM CLINICAL HISTORY: One day history of cough and chest congestion. COMPARISON: CHEST 2 VIEW 04/16/2018 1:58 PM, ABDOMEN ACUTE 03/15/2016 3:18 PM, CHEST 2 VIEW PA/LAT 09/29/2015 9:48 AM. TECHNIQUE: 2 views. FINDINGS: Lungs/Pleura: There is patchy nodular and peribronchial opacity within the superior segment of the left lower lobe. Lung volumes are small. No right lung consolidation. There is no definite effusion or pneumothorax demonstrated. Mediastinum: Heart and mediastinal contours are unremarkable. Other: None. IMPRESSION: New patchy superior segment left lower lobe peribronchial nodular opacities, worrisome for infection. RADIA
[2019-09-25] MEDS ORDERED: AZITHROMYCIN 250 MG TABLET PO STA (06:53)
[2019-09-25 06:56] VITALS: BP 105/62
== END 2019-09-25 07:10 | disposition home or self-care (01) ==
LOC: ED 04:00
DX: J18.9 Pneumonia, unspecified organism (principal); R00.0 Tachycardia, unspecified; R10.11 Right upper quadrant pain
CPT/HCPCS: 36415; 71046; 80053; 81001; 81025; 83690; 85025; 93005; 96361; 96374; 96375; 99283; 99284; A9270; J2060; 81003; 87086; 87275; 87276

== ENCOUNTER 2019-12-15 10:05 | Emergency (ER) | payer OTHER ==
[2019-12-15 10:18] VITALS: BP 128/73
--- NOTE | 2019-12-15 10:51 | ED Physician Documentation ---
PD HPI LOWER EXT INJURY - Stated complaint Stated Complaint: ANKLE PX - Chief complaint Chief Complaint: Ext Problem - History obtained from History obtained from: Patient - History of Present Illness PD HPI LOW EXT INJURY LOCATION: Right, Left, Ankle Type of injury: Blunt / blow Where injury occurred: Home Timing - onset: Last night Timing - duration: Hours Timing - details: Abrupt onset, Still present Improved by: Rest, Immobilization Worsened by: Moving, Palpating Associated symptoms: Swelling. No: Weakness, Numbness, Tingling Contributing factors: No: Anticoagulated Similar symptoms before: Has not had sx before Recently seen: Not recently seen - Additional information Additional information: Previously well 24-year-old female was helping her boyfriend set a beam yesterday. She was holding onto the edge of the beam, she thought the beam was set and let go of it. The beam fell from overhead and landed right between her legs scraping the medial ankle bilaterally. She has worse pain on the right than the left she is having to limp to walk and today when she was at work her boss insisted she come to the emergency department for x-rays. She felt there were likely no fracture just a sprain she has come here at the insistence of her boss. Review of Systems Constitutional: denies: Fever Ears: denies: Ear pain Nose: denies: Rhinorrhea / runny nose, Congestion Throat: denies: Sore throat Respiratory: denies: Cough Musculoskeletal: reports: Extremity pain, Joint pain, Pain with weight bearing. denies: Neck pain, Back pain Neurologic: denies: Generalized weakness, Focal weakness, Numbness 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, Other [employer]: Ovarian cysts, Other : Chronic bladder infection HEENT: None Psych: Depression, Anxiety, Panic attacks, Claustrophobia Musculoskeletal: Fibromyalgia, Other Derm: None Other Past Medical History: Lupus - Past Surgical History Past Surgical History: Yes Ortho: Arthroscopic surgery HEENT: Other - Present Medications Home Medications: Ambulatory Orders Medication Instructions Recorded Confirmed Albuterol Sulfate 2 mg INH ONCE PRN 09/10/14 12/29/16 estradioL [Estradiol] 1 patch 12/29/16 Gabapentin 1,600 mg DAILY 05/07/18 05/07/18 Loperamide [Imodium] 2 mg PO QID PRN #10 capsule 05/07/18 Ondansetron Odt [Zofran] 4 mg TL Q6H PRN #10 tablet 05/07/18 busPIRone [Buspar] 15 mg DAILY 05/07/18 05/07/18 Cyclobenzaprine [Flexeril] 10 mg PO TID PRN #20 tablet 07/11/19 Oxycodone HCl/Acetaminophen 1 - 2 each PO Q6H PRN #14 tablet 07/11/19 [Percocet 5-325 mg Tablet] Famotidine [Pepcid] 20 mg PO BID #60 tablet 08/08/19 Hyoscyamine Sulfate [Levsin-Sl] 0.125 mg SL Q6H PRN #14 tab.subl 08/08/19 Sucralfate [Carafate] 1 gm PO ACHS #60 tablet 08/08/19 Azithromycin [Zithromax] 250 mg PO DAILY #4 tablet 09/25/19 - Allergies Allergies/Adverse Reactions: Allergies Allergy/AdvReac Type Severity Reaction Status Date / Time amoxicillin Allergy Unknown Verified 12/15/19 10:17 doxycycline Allergy Unknown Verified 12/15/19 10:17 Penicillins Allergy Rash Verified 12/15/19 10:17 hydrocodone bitartrate * AdvReac Severe Emesis Verified 12/15/19 10:17 [From Vicodin] - Social History Does the pt smoke?: No Smoking Status: Never smoker Does the pt drink ETOH?: Yes Does the pt have substance abuse?: Yes - Immunizations Immunizations are current?: Yes - POLST Patient has POLST: No PD ED PE NORMAL - Vitals Vital signs reviewed: Yes (normal ) - General General: Alert and oriented X 3, No acute distress, Well developed/nourished - HEENT HEENT: Atraumatic, PERRL, EOMI - Respiratory Respiratory: No respiratory distress - Derm Derm: Normal color, No rash - Extremities Extremities: No deformity, No edema, Other (There is tenderness to palpation to the medial aspect of both ankles. There is pain to palpation below the medial malleolus on the right side and at the medial malleolus on the left side. She has some tenderness to the lateral malleolus on the left only. Distal neurovascular components are intact. She is able dorsiflex and plantarflex both feet.) Results - Vitals Vitals: Vital Signs - 24 hr 12/15/19 10:15 Temperature 36.8 C Heart Rate 82 Respiratory 18 Rate Blood Pressure 128/73 O2 Saturation 99 Oxygen O2 Source Room air PD MEDICAL DECISION MAKING - ED course Complexity details: considered differential, d/w patient ED course: 24-year-old female with a contusion to the medial aspect of both ankles has is limping she does not have any evidence of fracture expectation is recovery within 1 to 2 weeks. Departure - Departure Disposition: 01 Home, Self Care Clinical Impression: Ankle contusion Qualifiers: Encounter type: initial encounter Laterality: unspecified laterality Qualified Code(s): S90.00XA - Contusion of unspecified ankle, initial encounter Condition: Stable Instructions: ED Contusion Foot, ED Sprain Ankle Follow-Up: Lorrie Monaco ARNP [Primary Care Provider] - Forms: Activity restrictions
--- NOTE | 2019-12-15 11:12 | XRAY Report ---
Reason: medial contusion of both ankles. Procedure Date: 12/15/2019 Accession Number: [id number] / [id number] Procedure: XR - Ankle 3 View BILAT CPT Code: Final Report FULL RESULT: EXAMS: 1. Right Ankle Radiography 2. Left Ankle Radiography EXAM DATE: 12/15/2019 10:23 AM. CLINICAL HISTORY: Medial contusion of both ankles. Heavy beam swung down hitting ankles. COMPARISON: ANKLE 3 VIEW LT 05/22/2014 10:36 AM. TECHNIQUE: 3 views each ankle. FINDINGS: Right Ankle: Bones: Normal. No fractures or bone lesions. Joints: Normal. No effusion. No subluxations. The ankle mortise is normally aligned. Soft Tissues: Soft tissue edema. No radiopaque foreign bodies. Left Ankle: Bones: Normal. No fractures or bone lesions. Joints: Normal. No effusion. No subluxations. The ankle mortise is normally aligned. Soft Tissues: Soft tissue edema. No radiopaque foreign bodies. IMPRESSION: 1. No acute osseous abnormalities. RADIA
== END 2019-12-15 11:11 | disposition home or self-care (01) ==
LOC: ED 10:05
DX: S90.02XA Contusion of left ankle, initial encounter (principal); S90.01XA Contusion of right ankle, initial encounter; W22.8XXA Striking against or struck by other objects, initial encounter
CPT/HCPCS: 99283; 99284

== ENCOUNTER 2020-04-06 17:58 | Observation (INO) | payer SELFPAY ==
[2020-04-06] MEDS ORDERED: HYDROmorphone 1 MG/ML CARPUJECT IVP STA (18:33)
[2020-04-06] MEDS ORDERED: KETOROLAC 30 MG/ML VIAL IVP STA (18:33)
[2020-04-06] MEDS ORDERED: ONDANSETRON 4 MG/2 ML VIAL IVP STA (18:33)
--- NOTE | 2020-04-06 18:36 | ED Physician Documentation ---
PD HPI ABD PAIN - Stated complaint Stated Complaint: ABD PX - Chief complaint Chief Complaint: Abd Pain - History obtained from History obtained from: Patient - History of Present Illness Timing - onset: Last night Timing - details: Abrupt onset Pain level now: 9 Quality: Sharp Improved by: Laying still Worsened by: Moving - Additional information Additional information: Increasing LLQ pain since last night, worse with walking. Now N/V. No urinary complaints. No constipation/diarrhea. 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, Other : Chronic bladder infection HEENT: None Psych: Depression, Anxiety, Panic attacks, Claustrophobia Musculoskeletal: Fibromyalgia, Other Derm: None - Past Surgical History Past Surgical History: Yes Ortho: Arthroscopic surgery HEENT: Other - Present Medications Home Medications: Ambulatory Orders Medication Instructions Recorded Confirmed Albuterol Sulfate 2 mg INH ONCE PRN 09/10/14 12/29/16 estradioL [Estradiol] 1 patch 12/29/16 Gabapentin 1,600 mg DAILY 05/07/18 05/07/18 Loperamide [Imodium] 2 mg PO QID PRN #10 capsule 05/07/18 Ondansetron Odt [Zofran] 4 mg TL Q6H PRN #10 tablet 05/07/18 busPIRone [Buspar] 15 mg DAILY 05/07/18 05/07/18 Cyclobenzaprine [Flexeril] 10 mg PO TID PRN #20 tablet 07/11/19 Oxycodone HCl/Acetaminophen 1 - 2 each PO Q6H PRN #14 tablet 07/11/19 [Percocet 5-325 mg Tablet] Famotidine [Pepcid] 20 mg PO BID #60 tablet 08/08/19 Hyoscyamine Sulfate [Levsin-Sl] 0.125 mg SL Q6H PRN #14 tab.subl 08/08/19 Sucralfate [Carafate] 1 gm PO ACHS #60 tablet 08/08/19 Azithromycin [Zithromax] 250 mg PO DAILY #4 tablet 09/25/19 - Allergies Allergies/Adverse Reactions: Allergies Allergy/AdvReac Type Severity Reaction Status Date / Time amoxicillin Allergy Unknown Verified 04/06/20 18:06 doxycycline Allergy Unknown Verified 12/15/19 10:17 Penicillins Allergy Rash Verified 04/06/20 18:06 hydrocodone bitartrate * AdvReac Severe Emesis Verified 04/06/20 18:06 [From Vicodin] - Social History Does the pt smoke?: No Smoking Status: Never smoker Does the pt drink ETOH?: Yes Does the pt have substance abuse?: No - Immunizations Immunizations are current?: Yes - POLST Patient has POLST: No PD ED PE NORMAL - Vitals Vital signs reviewed: Yes - General General: Alert and oriented X 3, No acute distress - HEENT HEENT: PERRL, EOMI - Neck Neck: Supple, no meningeal sign, No bony TTP - Cardiac Cardiac: RRR, No murmur - Respiratory Respiratory: No respiratory distress, Clear bilaterally - Abdomen Abdomen: Other (TTP LLQ/Pelvis) - Back Back: No CVA TTP, No spinal TTP - Derm Derm: Normal color, Warm and dry - Extremities Extremities: No edema, No calf tenderness / cord - Neuro Neuro: Alert and oriented X 3, No motor deficit, No sensory deficit, Normal speech Eye Opening: Spontaneous Motor: Obeys Commands Verbal: Oriented GCS Score: 15 - Psych Psych: Normal mood, Normal affect Results - Vitals Vitals: Vital Signs - 24 hr 04/06/20 04/06/20 04/06/20 18:06 18:13 20:08 Temperature 37 C 37 C Heart Rate 105 H 105 H 73 Respiratory 16 16 Rate Blood Pressure 119/71 119/71 111/54 L O2 Saturation 100 100 100 Oxygen O2 Source Room air - Labs Labs: Laboratory Tests 04/06/20 04/06/20 04/06/20 18:35 18:40 18:40 WBC 14.4 H RBC 4.60 Hgb 14.9 Hct 42.5 MCV 92.4 MCH 32.4 H MCHC 35.1 RDW 11.8 L Plt Count 305 MPV 9.4 Neut # (Auto) 10.5 H Lymph # (Auto) 3.2 [place] # (Auto) 0.6 Eos # (Auto) 0.1 Baso # (Auto) 0.0 Absolute Nucleated RBC 0.00 Nucleated RBC % 0.0 Sodium 139 Potassium 3.4 L Chloride 99 L Carbon Dioxide 27 Anion Gap 13.0 BUN 10 Creatinine 0.7 Estimated GFR (MDRD) 103 Glucose 101 H Calcium 10.0 Total Bilirubin 0.3 AST 18 ALT 17 Alkaline Phosphatase 102 Total Protein 8.1 Albumin 4.6 Globulin 3.5 Albumin/Globulin Ratio 1.3 Lipase 25 Urine Color YELLOW Urine Clarity CLEAR Urine pH 6.0 Ur Specific [place] 1.020 Urine Protein NEGATIVE Urine Glucose (UA) NEGATIVE Urine Ketones NEGATIVE Urine Occult Blood NEGATIVE Urine Nitrite NEGATIVE Urine Bilirubin NEGATIVE Urine Urobilinogen 0.2 (NORMAL) Ur Leukocyte Esterase NEGATIVE Ur Microscopic Review NOT INDICATED Urine Culture Comments NOT INDICATED Urine HCG, Qual NEGATIVE PD MEDICAL DECISION MAKING - ED course ED course: 24-year-old woman with left lower quadrant and pelvic pain of days duration, she is tender on exam. White counts 14. Initial thought was cyst given that she is midcycle and it was on the left. Ultrasound was negative for same so went over to CT which showed uncomplicated appendicitis. Spoke with Dr. Sumner the surgeon at around 8:40 PM. Recommend Cipro and Flagyl noting penicillin allergy. Looking at the CT, probably the reason her pain localized to the left was that the appendix goes retrocecal and towards the midline Departure - Departure Disposition: ED Transfer to [facility] Clinical Impression: Appendicitis Qualifiers: Appendicitis type: acute appendicitis Acute appendicitis type: with localized peritonitis Appendicitis gangrene presence: without gangrene Appendicitis perforation presence: without perforation Appendicitis abscess presence: without abscess Qualified Code(s): K35.30 - Acute appendicitis with localized peritonitis, without perforation or gangrene Condition: Stable Discharge Date/Time: 04/06/20 21:38
[2020-04-06 18:45] LABS: BASOPHILS % (AUTO) 0.3 %; EOSINOPHILS # (AUTO) 0.1 10^3/uL (0.0-0.7); EOSINOPHILS % (AUTO) 0.3 %; HGB - HEMOGLOBIN 14.9 g/dL (12.0-16.0); LYMPHOCYTES # (AUTO) 3.2 10^3/uL (1.5-3.5); LYMPHOCYTES % (AUTO) 22.3 %; MEAN CORPUSCULAR HEMOGLOBIN 32.4 pg (27.0-31.0); MEAN CORPUSCULAR HGB CONC 35.1 g/dL (32.0-36.0); MEAN CORPUSCULAR VOLUME 92.4 fL (81.0-99.0); MEAN PLATELET VOLUME 9.4 fL (7.9-10.8); MONOCYTES # (AUTO) 0.6 10^3/uL (0.0-1.0); NEUTROPHILS # (AUTO) 10.5 10^3/uL (1.5-6.6); NEUTROPHILS % (AUTO) 72.7 %; PLT - PLATELET COUNT 305 10^3/uL (130-450); RED CELL DISTRIBUTION WIDTH 11.8 % (12.0-15.0); WHITE BLOOD COUNT 14.4 x10^3/uL (4.8-10.8)
[2020-04-06 18:58] LABS: ALBUMIN 4.6 g/dL (3.2-5.5); ALBUMIN/GLOBULIN RATIO 1.3 (1.0-2.2); BILIRUBIN,TOTAL 0.3 mg/dL (0.2-1.0); CREATININE 0.7 mg/dL (0.4-1.0); TOTAL PROTEIN 8.1 g/dL (6.7-8.2)
[2020-04-06 19:07] LABS: BILIRUBIN,URINE NEGATIVE (NEGATIVE); GLUCOSE, URINE (UA) NEGATIVE (NEGATIVE); KETONES,URINE (UA) NEGATIVE (NEGATIVE); LEUKOCYTE ESTERASE, URINE NEGATIVE (NEGATIVE); NITRITE,URINE NEGATIVE (NEGATIVE); OCCULT BLOOD,URINE NEGATIVE (NEGATIVE); PROTEIN,URINE NEGATIVE (NEGATIVE); UROBILINOGEN,URINE 0.2 (NORMAL) E.U./dL (NORMAL)
[2020-04-06 19:10] LABS: CLARITY,URINE CLEAR (CLEAR); HCG UR QUAL NEGATIVE
[2020-04-06] MEDS ORDERED: IOVERSOL 320 100 ML VIAL IVP ONE ×2 (20:02→20:19)
--- NOTE | 2020-04-06 20:41 | CT Report ---
PROCEDURE: Abdomen/Pelvis W INDICATIONS: IV only, LLQ pain CONTRAST: IV CONTRAST: Optiray 320 ml: 100 PO CONTRAST: *NO PO CONTRAST TECHNIQUE: After the administration of oral and intravenous contrast, 5 mm thick sections acquired from the diap hragms to the symphysis. 5 mm thick coronal and sagittal reformats were acquired. For radiation dos e reduction, the following was used: automated exposure control, adjustment of mA and/or kV accordin g to patient size. COMPARISON: None. FINDINGS: Image quality: Excellent. ABDOMEN: Lung bases: Lung bases are clear. Heart size is normal. Solid organs: Liver and spleen are normal in size and enhancement. Gallbladder negative Biliary sy stem is non dilated. Pancreas enhances normally. No adrenal nodules. Kidneys demonstrate normal si ze and enhancement, without hydronephrosis. Peritoneum and bowel: The appendix is enlarged measuring 9 mm, and located coursing towards the midli ne for example image 68/3. There is mucosal enhancement in keeping with acute appendicitis. No absces s or appendicolith seen. Mild periappendiceal inflammatory stranding. No free fluid or air. Nodes and vessels: No retroperitoneal or mesenteric adenopathy by size criteria. Aorta and inferior vena cava are normal in size. Miscellaneous: No ventral hernias. PELVIS: Genitourinary: Bladder wall thickness is normal. Miscellaneous: No inguinal hernias or adenopathy. Bones: No suspicious bony lesions. No vertebral body compression fractures. IMPRESSION: Acute appendicitis. No abscess or appendicolith seen. Findings personally telephoned to Dr. Person in the emergency department [id number] on 04/06/2020 Reviewed by: Paulie House MD on 04/06/2020 8:40 PM PDT Approved by: Paulie House MD on 04/06/2020 8:40 PM PDT Station ID: [id number]
[2020-04-06] MEDS ORDERED: LACTATED RINGERS 1,000 ML IV STA (20:44)
[2020-04-06] MEDS ORDERED: CIPROFLOXACIN 400 MG/200 ML 400 MG/200 ML BAG IV STA (20:44)
[2020-04-06] MEDS ORDERED: metroNIDAZOLE 500 MG/100 ML 500 MG/100 ML BAG IV ONE (20:45)
--- NOTE | 2020-04-06 21:05 | HISTORY & PHYSICAL EXAMINATION ---
Chief Complaint - Chief Complaint Chief Complaint: Abdominal pain History of Present Illness - Admitted From Admitted From:: Home/ER - History Obtained From Records Reviewed: Patient/EMR History obtained from: Patient/EMR - History of Present Illness HPI Comment/Other: 24-year-old female with 24-hour history of abdominal pain left lower quadrant. Associated nausea and vomiting. Febrile episode. No prior abdominal surgical intervention. Comorbid states including systemic lupus, currently on no steroid therapy. No therapy for her SLE. Last ate 6 PM the day of presentation. CT scan ER evaluation noted for appendicitis surgery called. 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: Ovarian cysts, Other : reports: Chronic bladder infection HEENT: reports: None Psych: reports: Depression, Anxiety, Panic attacks, Claustrophobia Musculoskeletal: reports: Fibromyalgia, Other Derm: reports: None MRSA Hx?: No - Past Surgical History Ortho: reports: Arthroscopic surgery HEENT: reports: Other - POLST Patient has POLST: No Meds/Allgy - Home Medications Home Medications: Ambulatory Orders Medication Instructions Recorded Confirmed Albuterol Sulfate 2 mg INH ONCE PRN 09/10/14 12/29/16 estradioL [Estradiol] 1 patch 12/29/16 Gabapentin 1,600 mg DAILY 05/07/18 05/07/18 Loperamide [Imodium] 2 mg PO QID PRN #10 capsule 05/07/18 Ondansetron Odt [Zofran] 4 mg TL Q6H PRN #10 tablet 05/07/18 busPIRone [Buspar] 15 mg DAILY 05/07/18 05/07/18 Cyclobenzaprine [Flexeril] 10 mg PO TID PRN #20 tablet 07/11/19 Oxycodone HCl/Acetaminophen 1 - 2 each PO Q6H PRN #14 tablet 07/11/19 [Percocet 5-325 mg Tablet] Famotidine [Pepcid] 20 mg PO BID #60 tablet 08/08/19 Hyoscyamine Sulfate [Levsin-Sl] 0.125 mg SL Q6H PRN #14 tab.subl 08/08/19 Sucralfate [Carafate] 1 gm PO ACHS #60 tablet 08/08/19 Azithromycin [Zithromax] 250 mg PO DAILY #4 tablet 09/25/19 - Allergies Allergies/Adverse Reactions: Allergies Allergy/AdvReac Type Severity Reaction Status Date / Time amoxicillin Allergy Unknown Verified 04/06/20 18:06 doxycycline Allergy Unknown Verified 12/15/19 10:17 Penicillins Allergy Rash Verified 04/06/20 18:06 hydrocodone bitartrate * AdvReac Severe Emesis Verified 04/06/20 18:06 [From Vicodin] Review of Systems - Constitutional Constitutional: reports: Fatigue, Fever - Gastrointestinal Gastrointestinal: reports: Abdominal pain, Nausea, Vomiting Exam - Vital Signs Vital Signs: Vital Signs x48h Temp Pulse Resp BP Pulse Ox 04/06/20 20:08 73 111/54 L 100 04/06/20 18:13 37 C 105 H 16 119/71 100 04/06/20 18:06 37 C 105 H 16 119/71 100 - Physical Exam General Appearance: positive: No acute distress Eyes Bilateral: positive: Normal inspection, PERRL, EOMI Neck: positive: Nml inspection Respiratory: positive: Chest non-tender, No respiratory distress. negative: Wheezes, Rales, Rhonchi Cardiovascular: positive: Regular rate & rhythm Abdomen: positive: Non-tender, Tenderness. negative: Guarding, Rebound Extremities: positive: Non-tender, Full ROM Neurologic/Psychiatric: positive: Oriented x3, CN's nml (2-12) Conclusion/Plan - Lab Results Fish Bones: 04/07/20 05:13 04/07/20 05:13 - Diagnostic Imaging Results Diagnostic Imaging Results: positive: Final report reviewed - Other Other Results/Comments: 24-year-old female with history of lupus fibromyalgia amongst others who is presenting with acute appendicitis with multiple comorbid states including those listed. Leukocytosis to 14, CT consistent with acute appendicitis. Plan going forward is as follows: 1. Bowel rest, IV fluid resuscitation, IV antibiotics. 2. Preoperative chest x-ray, preoperative EKG, labs evaluated. 3. Planned diagnostic laparoscopy, laparoscopic appendectomy, other indicated procedures. Patient counseled of the risk associated with operative intervention including but not limited to conversion to open procedure, injury to local structures, and anesthesia risks of heart attack, stroke, . 4. Postoperative care under observation status with continued IV antibiotics.
--- NOTE | 2020-04-06 21:39 | Ultrasound Report ---
PROCEDURE: Pelvic w/Doppler Complete INDICATIONS: LLQ PAIN, N/V TECHNIQUE: Real-time scanning was performed of the pelvic organs, with image documentation. Additional endovagi nal scanning was declined by the patient. COMPARISON: None. FINDINGS: Transabdominal scanning: Limited scanning through the kidneys shows no hydronephrosis.Incidentally n oted left renal cyst measuring 2.3 x 1.2 x 1.8 cm. No pathologic free abdominal or pelvic fluid. Endovaginal scanning: Uterus: Uterus is normal in size at 6.8 x 3.0 x 4.6 cm. The endometrium measures 6 mm in combined t hickness. Ovaries: Right ovary measures 3.1 x 1.9 x 2.1 cm Left ovary measures 3.3 x 2.0 x 2.5 cm. There is normal physiologic follicular change. IMPRESSION: Unremarkable examination as above Reviewed by: Paulie House MD on 04/06/2020 9:37 PM PDT Approved by: Paulie House MD on 04/06/2020 9:37 PM PDT Station ID: [id number]
[2020-04-06] MEDS: CIPROFLOXACIN 400 MG/200 ML 400 MG/200 ML BAG IV SCH (21:41)
[2020-04-06] MEDS: metroNIDAZOLE 500 MG/100 ML 500 MG/100 ML BAG IV SCH (21:41)
[2020-04-06] MEDS: ACETAMINOPHEN 1,000 MG/100 ML 100 ML IV SCH (22:12)
[2020-04-06] MEDS: HYDROmorphone 1 MG/ML CARPUJECT IVP PRN (22:36)
[2020-04-06] MEDS: ONDANSETRON 4 MG/2 ML VIAL IVP PRN (22:36)
[2020-04-07] MEDS: SODIUM CHLORIDE FLUSH 0.9% 10 ML SYRINGE IVP SCH ×5 (01:13→07:47)
[2020-04-07] MEDS: HYDROmorphone 1 MG/ML CARPUJECT IVP PRN ×3 (01:27→07:47)
[2020-04-07] MEDS: ACETAMINOPHEN 1,000 MG/100 ML 100 ML IV SCH ×3 (04:05→17:38)
[2020-04-07] MEDS: ONDANSETRON 4 MG/2 ML VIAL IVP PRN ×2 (04:32→12:31)
[2020-04-07 05:36] LABS: BASOPHILS % (AUTO) 0.2 %; EOSINOPHILS # (AUTO) 0.1 10^3/uL (0.0-0.7); EOSINOPHILS % (AUTO) 0.6 %; HGB - HEMOGLOBIN 13.2 g/dL (12.0-16.0); LYMPHOCYTES # (AUTO) 3.8 10^3/uL (1.5-3.5); LYMPHOCYTES % (AUTO) 40.1 %; MEAN CORPUSCULAR HEMOGLOBIN 31.8 pg (27.0-31.0); MEAN CORPUSCULAR HGB CONC 34.1 g/dL (32.0-36.0); MEAN CORPUSCULAR VOLUME 93.3 fL (81.0-99.0); MEAN PLATELET VOLUME 9.8 fL (7.9-10.8); MONOCYTES # (AUTO) 0.5 10^3/uL (0.0-1.0); MONOCYTES % (AUTO) 4.9 %; NEUTROPHILS # (AUTO) 5.1 10^3/uL (1.5-6.6); NEUTROPHILS % (AUTO) 53.9 %; PLT - PLATELET COUNT 249 10^3/uL (130-450); RED BLOOD COUNT 4.15 10^6/uL (4.20-5.40); RED CELL DISTRIBUTION WIDTH 11.9 % (12.0-15.0); WHITE BLOOD COUNT 9.5 x10^3/uL (4.8-10.8)
[2020-04-07 05:48] LABS: ALBUMIN 3.9 g/dL (3.2-5.5); ALBUMIN/GLOBULIN RATIO 1.4 (1.0-2.2); BILIRUBIN,TOTAL 0.5 mg/dL (0.2-1.0); CALCIUM 9.4 mg/dL (8.5-10.3); CREATININE 0.7 mg/dL (0.4-1.0); TOTAL PROTEIN 6.7 g/dL (6.7-8.2)
[2020-04-07] MEDS: metroNIDAZOLE 500 MG/100 ML 500 MG/100 ML BAG IV SCH ×3 (06:23→21:48)
[2020-04-07] MEDS: SODIUM CHLORIDE FLUSH 0.9% 10 ML SYRINGE IVP PRN ×2 (06:23→13:52)
[2020-04-07] MEDS ORDERED: LIDOCAINE 1%-EPI 1:100000 20 ML MDV ONE (07:26)
[2020-04-07] MEDS ORDERED: BUPIVACAINE 0.5% PF 30 ML VIAL ONE (07:26)
--- NOTE | 2020-04-07 07:28 | ANESTHESIA ---
Pre-Anesthesia VS, & Labs - Diagnosis acute appendicitis - Procedure lap appy Vital Signs: Temp Pulse Resp BP Pulse Ox 36.5 C 68 16 102/63 100 04/07/20 04:13 04/07/20 04:39 04/07/20 04:13 04/07/20 04:39 04/07/20 04:13 Height 5 ft 2 in Weight (kg) 74.389 kg Body Mass Index 29.9 - NPO >8 hours - Is Patient ?: No - Lab Results Current Lab Results: Laboratory Tests 04/07/20 05:13: Sodium 138, Potassium 3.6, Chloride 104, Carbon Dioxide 26, Anion Gap 8.0, BUN 9, Creatinine 0.7, Estimated GFR (MDRD) 103, Glucose 100, Calcium 9.4, Total Bilirubin 0.5, AST 16, ALT 15, Alkaline Phosphatase 95, Total Protein 6.7, Albumin 3.9, Globulin 2.8, Albumin/Globulin Ratio 1.4 04/07/20 05:13: WBC 9.5, RBC 4.15 L, Hgb 13.2, Hct 38.7, MCV 93.3, MCH 31.8 H, MCHC 34.1, RDW 11.9 L, Plt Count 249, MPV 9.8, Neut # (Auto) 5.1, Lymph # (Auto) 3.8 H, [place] # (Auto) 0.5, Eos # (Auto) 0.1, Baso # (Auto) 0.0, Absolute Nucleated RBC 0.00, Nucleated RBC % 0.0 04/06/20 18:40: Sodium 139, Potassium 3.4 L, Chloride 99 L, Carbon Dioxide 27, Anion Gap 13.0, BUN 10, Creatinine 0.7, Estimated GFR (MDRD) 103, Glucose 101 H, Calcium 10.0, Total Bilirubin 0.3, AST 18, ALT 17, Alkaline Phosphatase 102, [place] Protein 8.1, Albumin 4.6, Globulin 3.5, Albumin/Globulin Ratio 1.3, Lipase 25 04/06/20 18:40: WBC 14.4 H, RBC 4.60, Hgb 14.9, Hct 42.5, MCV 92.4, MCH 32.4 H, MCHC 35.1, RDW 11.8 L, Plt Count 305, MPV 9.4, Neut # (Auto) 10.5 H, Lymph # (Auto) 3.2, [place] # (Auto) 0.6, Eos # (Auto) 0.1, Baso # (Auto) 0.0, Absolute Nucleated RBC 0.00, Nucleated RBC % 0.0 Fish Bones: 04/07/20 05:13 04/07/20 05:13 Home Medications and Allergies Active Medications Hydromorphone HCl (Dilaudid Inj Carp) 0.5 mg IVP Q2HR PRN PRN Reason: PAIN Last Admin: 04/07/20 04:50 Dose: 0.5 mg Documented by: Acetaminophen (Ofirmev) 100 mls @ 400 mls/hr IV Q6H [facility] Last Infusion: 04/07/20 04:20 Dose: Infused Documented by: Ciprofloxacin (Cipro 400 Mg/200 Ml) 400 mg in 200 mls @ 200 mls/hr IV Q12H [facility] Last Admin: 04/06/20 21:41 Dose: Not Given Documented by: Metronidazole (Flagyl 500 Mg/100 Ml) 500 mg in 100 mls @ 100 mls/hr IV Q8H [facility] Last Admin: 04/07/20 06:23 Dose: 100 mls/hr Documented by: Ondansetron HCl (Zofran Inj) 4 mg IVP Q4HR PRN PRN Reason: Nausea / Vomiting Last Admin: 04/07/20 04:32 Dose: 4 mg Documented by: Sodium Chloride (Normal Saline Flush 0.9%) 10 ml IVP 0100,0900,1700 [facility] Last Admin: 04/07/20 04:50 Dose: 10 ml Documented by: Sodium Chloride (Normal Saline Flush 0.9%) 10 ml IVP PRN PRN PRN Reason: NEEDED PER PROVIDER ORDERS Last Admin: 04/07/20 06:23 Dose: 10 ml Documented by: Albuterol Sulfate 2 mg INH ONCE PRN 09/10/14 estradioL [Estradiol] 1 patch 12/29/16 Gabapentin 1,600 mg DAILY 05/07/18 busPIRone [Buspar] 15 mg DAILY 05/07/18 Allergies/Adverse Reactions: Allergies Allergy/AdvReac Type Severity Reaction Status Date / Time amoxicillin Allergy Unknown Verified 04/06/20 18:06 doxycycline Allergy Unknown Verified 12/15/19 10:17 Penicillins Allergy Rash Verified 04/06/20 18:06 hydrocodone bitartrate * AdvReac Severe Emesis Verified 04/06/20 18:06 [From Vicodin] Anes History & Medical History - Anesthetic History Anesthesia Complications: reports: No previous complications - Medical History Pulmonary: reports: Asthma, Pneumonia (few months ago) Gastrointestinal: reports: Other (celiac) Urinary: reports: Chronic bladder infection Neuro: reports: None Musculoskeletal: reports: Fibromyalgia Endocrine/Autoimmune: reports: None Blood Disorders: reports: Anemia Skin: reports: None Smoking Status: Never smoker Psychosocial: reports: Delusions, Anxiety, Alcohol (occassional), Cannabis (occassional) - Surgical History Eyes Ears Nose Throat (EENT): Other Orthopedic: Arthroscopic surgery (left knee) Exam General: Alert, Oriented x3, Cooperative, No acute distress Dental: WNL, Other (prominent incisors) Mouth Openin Fingerbreadth Neck Mobility: Normal Mallampati classification: II Thyromental Distance: 4-6 cm Respiratory: Lungs clear, Normal breath sounds, No respiratory distress, No accessory muscle use Cardiovascular: Regular rate, Normal S1, Normal S2, No murmurs Mental/Cognitive Status: Alert/Oriented X3, Normal for patient Plan Anesthesia Type: General Consent for Procedure(s) Verified and Reviewed: Yes Code Status: Attempt Resuscitation ASA classification: 2-Mild systemic disease Is this case an emergency?: No
[2020-04-07] MEDS ORDERED: HYDROmorphone 0.5 MG/0.5 ML SYRINGE IVP PRN ×2 (09:23→12:29)
[2020-04-07] MEDS ORDERED: ONDANSETRON 4 MG/2 ML VIAL IVP PRN (09:23)
[2020-04-07] MEDS ORDERED: METOCLOPRAMIDE 10 MG/2 ML VIAL IVP PRN ×2 (09:23→12:04)
[2020-04-07] MEDS ORDERED: MORPHINE 2 MG/ML CARPUJECT IVP PRN (09:23)
[2020-04-07] MEDS ORDERED: NALOXONE 0.4 MG/ML VIAL IVP PRN (09:23)
[2020-04-07] MEDS ORDERED: ATROPINE ABBOJECT 1 MG/10 ML SYRINGE IVP PRN (09:23)
[2020-04-07] MEDS ORDERED: ePHEDrine 50 MG/ML VIAL IVP PRN (09:23)
[2020-04-07] MEDS ORDERED: LACTATED RINGERS 1,000 ML IV ONE (09:56)
[2020-04-07] MEDS ORDERED: LACTATED RINGERS 1,000 ML IV SCH (10:00)
[2020-04-07] MEDS: fentaNYL 100 MCG/2 ML VIAL IVP PRN ×2 (10:25→10:31)
[2020-04-07] MEDS ORDERED: fentaNYL 100 MCG/2 ML VIAL ONE (10:31)
--- NOTE | 2020-04-07 10:33 | ANESTHESIA POST OP EVALUATION ---
Anesthesia Post Eval - Post Anesthesia Eval Vitals: Last Vital Signs Temp 36 C L 04/07/20 09:56 Pulse 61 04/07/20 10:25 Resp 16 04/07/20 10:25 BP 122/84 H 04/07/20 10:25 Pulse Ox 100 04/07/20 10:25 CV Function Including HR & BP: positive: Stable Pain Control: positive: Satisfactory Nausea & Vomiting: positive: Negative Mental Status: positive: Baseline Respiratory Status: Airway Patent Hydration Status: Satisfactory Anesthesia Complications: positive: None
--- NOTE | 2020-04-07 10:33 | OPERATIVE REPORT ---
Operative Report - General Admit Date: 04/06/20 Planned Procedure: 1. Diagnostic laparoscopy 2. Laparoscopic appendectomy 3. Lysis of adhesions 4. Abdominal washout 5. Tap block per anesthesia Pre-Op Diagnosis: Abdominal pain, appendicitis, abdominal sepsis Procedure Performed: 1. Diagnostic laparoscopy 2. Laparoscopic appendectomy 3. Extensive lysis of adhesions 4. Drainage of abscess 5. Abdominal washout 6. Open umbilical hernia repair 7. Tap block per anesthesia Post Op Diagnosis: Same, non-suppurative, nonperforated appendicitis - Procedure Note Primary Surgeon: Burak Secondary Surgeon: Not applicable Anesthesia Provider: Tony Venegas Anesthesia Technique: General ET tube, Local Pathology: Appendix Estimated Blood Loss (mL): 10 Indications: Abdominal pain, abdominal sepsis with leukocytosis and febrile episode, CT consistent with acute appendicitis. Findings: 1. Non-superlative appendicitis 2. Nonperforated appendicitis 3. Right lower quadrant adhesions 4. Ileocecal valve intact with no compromise 5. Right ureter protected and noted throughout Complications: No complications - Other Other Information/Narrative: 1. Diagnostic laparoscopy 2. Laparoscopic appendectomy 3. Extensive lysis of adhesions 4. Drainage of abscess 5. Abdominal washout 6. Open umbilical hernia repair 7. Tap block per anesthesia 24-year-old female presenting with 1 day of abdominal pain. Work-up included CT scan as well as lab evaluation. Patient notable for a leukocytosis, 14, as well as CT scan consistent with appendicitis with inflammatory changes. Patient with no prior surgical history. Opted to proceed to the operating room urgently for laparoscopic intervention. OPERATIVE PROCEDURE: The patient was taken to the operating room, placed supine on the operating table. The patent was already obtained tor informed consent which was documented in the patients permanent medical record The patient was induced for general endotracheal anesthesia. The patient was positioned, off loaded and padded at all pressure points. The patient was placed for a Cerna catheter and tucked for the left arm. The patient was prepped and draped in the usual sterile fashion. The patient was called for a time out which was agreed to all in the room. Open Marvin technique was performed through umbilicus and umbilical trocar was placed. This was achieved with a circumlinear stefany-umbilical incision. This is taken through the subcutaneous fat, the umbilical stalk was dissected off and obvious hernia defect was appreciated. This was done without any injury to the umbilical skin. That [place] defect was enlarged and accommodated Marvin trocar without any complication. Insufflation was commenced which the patient tolerated to 15 mmHg well with no complication. Additional trocars were placed suprapubic and left lower quadrant under direct laparoscopic vision. At this time the patient was placed in Trendelenburg position with right side up and we proceeded to isolate the cecum which was densely adhered to the sidewall. Patient was taken to the operating room placed supine on the operating table. Informed consent was already obtained. Patient was induced for general endotracheal anesthesia. Patient at this time was placed for Cerna catheter. Patient was offloaded and padded. Patient was prepped and draped in the usual sterile fashion. Timeout was called and agreed to by all in the room. A plan access point was incised circumlinear infraumbilical. An incision was made sharply. Skin and subcutaneous tissues were divided using Bovie electrocautery. Fascia was encountered it was sharply divided. Muscle was bluntly divided. Posterior fascia was elevated and sharply divided. Abdominal cavity was entered without incident. A umbilical hernia was appreciated and was planned for closure at the conclusion of this case. Please note the umbilical stalk was dissected off of the fascial defect. The fascial defect was lengthened to accommodate the Marvin trocar which was accommodated without any complication. The patient thereafter was insufflated to 15 mmHg which she tolerated well with no adverse event. We ultimately placed 2 additional 5 mm trochars 1 suprapubic and one in the left lower quadrant. The appendix was continued to be mobilized and thereafter we achieved mobilization medially taking care to note the location of the ureter which was protected and identified throughout the entirety at this case especially given the extent of the patients inflammatory changes. Ultimately the cecum was isolated free, and the appendix was thereafter completely mobilized off the abdominal and pelvic sidewall. At this time there were dense adhesions noted of the appendix to the ascending colon and cecum and this required careful dissection as well, both blunt and also using the suction stain sprayer and laparoscopic cautery. At this time a [place] was used to dissect the cecal-appendiceal junction and thereafter using a ENDOGIA linear cutting stapler, the appendix was divided at the base to include portion at the cecum. The ileocecal valve was identified and protected throughout with no involvement. At this time, we continued to mobilize the appendix off the ascending colon and caecum making sure there was no inadvertent injury to the ascending colon and the cecum which was again densely adhered to the appendix. This was performed with great care using blunt as well as laparoscopic cautery dissection and ultimately isolated and dissected free the appendix which was placed into an Endo Catch bag for control of any further spillage. Please note the mesoappendix was divided using an Endo COLTON stapler load. Bleeding was noted and this was addressed with laparoscopic clip ticket speculator with hemostasis achieved. Irrigation and aspirated clear. Please note this was a non-suppurative nonperforated appendicitis. The appendiceal staple line and mesoappendix staple line and ligature were evaluated and hemostatic. At this time, we extensively irrigated the abdomen with greater than 2 liters of sterile saline and aspirated clear. At this time all trochars, secondary, were removed under direct laparoscopic visualization with no consequent bleeding. We removed the Marvin trocar, passed the specimen off for permanent pathology. We closed the umbilical defect with several [id number] of 0 Vicryl, and performed umbilicoplasty simultaneous. We planned for tap block for perioperative analgesia. All skin and subcutaneous tissue was reapproximated with a subcuticular of 4-0 Monocryl. Wounds were dressed with Dermabond. I was present for the entirety of this operative intervention patient tolerated procedure well which is no complication. All counts were sponges needles and instruments were correct at the conclusion of this operative case.
[2020-04-07] MEDS: CIPROFLOXACIN 400 MG/200 ML 400 MG/200 ML BAG IV SCH ×2 (11:17→20:43)
[2020-04-07] MEDS ORDERED: LORazepam 2 MG/ML VIAL IVP PRN (12:04)
[2020-04-07] MEDS: DOCUSATE SODIUM 100 MG CAPSULE PO SCH ×2 (13:11→20:43)
[2020-04-07] MEDS: polyethylene glycoL 3350 17 GM PACKET PO SCH ×2 (13:12→20:43)
[2020-04-07] MEDS: methocarbamoL 500 MG TABLET PO SCH ×2 (13:19→17:36)
[2020-04-07] MEDS: PREGABALIN 100 MG CAPSULE PO SCH ×2 (13:19→20:42)
[2020-04-07] MEDS: KETOROLAC 15 MG/ML VIAL IVP SCH (16:18)
--- NOTE | 2020-04-07 17:13 | PHARMACY PROGRESS NOTE ---
- Best Possible Medication History Admit Date and Time: 04/06/202054 Processed by: Pharmacy Medication History completed: Yes Patient Interview: Pt interview ONLY source As the person ultimately responsible for medication therapy, providers are able to order a medication from an existing home medication list in [facility] via the "Reconcile Routine" prior to Confirmation of that medication by microcomputer support specialist. Such practice is discouraged except when the physician, in their clinical judgment, deems that a medical need exists for a medication without regard to previous use.
[2020-04-07] MEDS: oxyCODONE 5 MG TABLET PO PRN (20:42)
[2020-04-07] MEDS ORDERED: NEOSTIGMINE 1 MG/1 ML 10 ML MDV IVP ONE (20:56)
[2020-04-07] MEDS ORDERED: fentaNYL 100 MCG/2 ML VIAL IVP ONE (20:56)
[2020-04-07] MEDS ORDERED: ROCURONIUM 50 MG/5 ML VIAL IVP ONE (20:56)
[2020-04-07] MEDS ORDERED: GLYCOPYRROLATE 1 MG/5 ML VIAL IVP ONE (20:56)
[2020-04-07] MEDS ORDERED: KETOROLAC 30 MG/ML VIAL IVP ONE (20:56)
[2020-04-07] MEDS ORDERED: DEXAMETHASONE 4 MG/ML VIAL IVP ONE (20:56)
[2020-04-07] MEDS ORDERED: MIDAZOLAM 2 MG/2 ML VIAL IVP ONE (20:56)
[2020-04-07] MEDS ORDERED: ONDANSETRON 4 MG/2 ML VIAL IVP ONE (20:56)
[2020-04-07] MEDS ORDERED: PROPOFOL 200 MG/20 ML VIAL IVP ONE (20:56)
[2020-04-08] MEDS: KETOROLAC 15 MG/ML VIAL IVP SCH ×3 (01:06→12:27)
[2020-04-08] MEDS: ACETAMINOPHEN 1,000 MG/100 ML 100 ML IV SCH ×2 (01:06→08:39)
[2020-04-08] MEDS: methocarbamoL 500 MG TABLET PO SCH ×3 (01:06→12:27)
[2020-04-08] MEDS: SODIUM CHLORIDE FLUSH 0.9% 10 ML SYRINGE IVP SCH (01:07)
[2020-04-08 05:38] LABS: BASOPHILS % (AUTO) 0.2 %; EOSINOPHILS % (AUTO) 0.1 %; HGB - HEMOGLOBIN 12.3 g/dL (12.0-16.0); LYMPHOCYTES # (AUTO) 2.4 10^3/uL (1.5-3.5); LYMPHOCYTES % (AUTO) 21.4 %; MEAN CORPUSCULAR HEMOGLOBIN 32.2 pg (27.0-31.0); MEAN CORPUSCULAR HGB CONC 34.5 g/dL (32.0-36.0); MEAN CORPUSCULAR VOLUME 93.5 fL (81.0-99.0); MEAN PLATELET VOLUME 9.5 fL (7.9-10.8); MONOCYTES # (AUTO) 0.7 10^3/uL (0.0-1.0); MONOCYTES % (AUTO) 6.6 %; NEUTROPHILS % (AUTO) 71.2 %; PLT - PLATELET COUNT 262 10^3/uL (130-450); RED BLOOD COUNT 3.82 10^6/uL (4.20-5.40); RED CELL DISTRIBUTION WIDTH 11.8 % (12.0-15.0); WHITE BLOOD COUNT 11.2 x10^3/uL (4.8-10.8)
[2020-04-08 05:48] LABS: ALBUMIN 3.5 g/dL (3.2-5.5); ALBUMIN/GLOBULIN RATIO 1.3 (1.0-2.2); BILIRUBIN,TOTAL 0.2 mg/dL (0.2-1.0); CREATININE 0.7 mg/dL (0.4-1.0); TOTAL PROTEIN 6.3 g/dL (6.7-8.2)
[2020-04-08] MEDS: metroNIDAZOLE 500 MG/100 ML 500 MG/100 ML BAG IV SCH (06:50)
[2020-04-08] MEDS: SODIUM CHLORIDE FLUSH 0.9% 10 ML SYRINGE IVP PRN (06:50)
[2020-04-08] MEDS: PREGABALIN 100 MG CAPSULE PO SCH (08:54)
[2020-04-08] MEDS: DOCUSATE SODIUM 100 MG CAPSULE PO SCH (08:54)
[2020-04-08] MEDS: polyethylene glycoL 3350 17 GM PACKET PO SCH (08:56)
[2020-04-08] MEDS: CIPROFLOXACIN 400 MG/200 ML 400 MG/200 ML BAG IV SCH (10:16)
[2020-04-08] MEDS: oxyCODONE 5 MG TABLET PO PRN (10:29)
--- NOTE | 2020-04-08 11:38 | Discharge Plan ---
Discharge Plan Problem Reviewed?: Yes Disposition: Home, Self Care Condition: Good Prescriptions: oxyCODONE [Roxicodone] 5 mg PO Q4HR PRN #30 tablet PRN Reason: Pain Methocarbamol [Robaxin-750] 750 mg PO Q8HR PRN #30 tablet PRN Reason: Spasms Docusate Sodium 100Mg Capsule [Colace 100Mg Capsule] 100 mg PO BID #60 capsule polyethylene glycoL 3350 [Miralax] 17 gm PO DAILY #30 packet Metoclopramide [Reglan] 10 mg PO Q6H PRN #30 tablet PRN Reason: Nausea / Vomiting Acetaminophen [Tylenol] 650 mg PO Q6H PRN #30 tablet PRN Reason: PRN PAIN &/OR FEVER Diet: Soft Activity Restrictions: No heavy lift/push/pull Shower Restrictions: No Driving Restrictions: Yes (No driving while taking narcotis) Instruction Topics: Appendectomy After, Appendicitis, Umbilical Hernia Repair After [facility] Concerns: DISCHARGE INSTRUCTIONS TEMPLATE: No heavy lifting, pushing, or pulling. Stairs are allowed, no strenuous/exert ional activities. 5-10lbs weight carrying limit (i.e. gallon of milk) If provided, abdominal binder while out of bed and while ambulating. Call or proceed to clinic/ER for fevers, severe pain, nausea, vomiting, inability to pass flatus/stool, bleeding, wound redness/discharge, weakness, excessively loose stool/diarrhea, or for any other reasonably worrisome symptom or concern. Soft diet, no raw vegetables, avoid high fiber foods. Colace 100mg by mouth twice to three times daily while taking narcotic pain medication. If no bowel movement in 24-48hr, may take 17g Miralax in 8oz water twice daily until bowel movement. May shower, no submersive bathing. Follow up in clinic in 2-4 weeks for wound check and staple removal. No driving while taking narcotic pain medications. Follow up with primary care provider and/or medical subspecialist following discharge as well. May take acetaminophen 325 mg, two tablets every 6 hours as needed for pain. Reglan as needed for nausea. Oxycodone as needed for sever pain. Please see prescriptions for specific dosing instructions. Plan of Treatment: [facility] to [facility]2 weeks to evaluate for return to work. Additional Instructions or Follow Up instructions: DISCHARGE INSTRUCTIONS TEMPLATE: No heavy lifting, pushing, or pulling. Stairs are allowed, no strenuous/exertional activities. 5-10lbs weight carrying limit (i.e. gallon of milk) If provided, abdominal binder while out of bed and while ambulating. Call or proceed to clinic/ER for fevers, severe pain, nausea, vomiting, inability to pass flatus/stool, bleeding, wound redness/discharge, weakness, excessively loose stool/diarrhea, or for any other reasonably worrisome symptom or concern. Soft diet, no raw vegetables, avoid high fiber foods. Colace 100mg by mouth twice to three times daily while taking narcotic pain medication. If no bowel movement in 24-48hr, may take 17g Miralax in 8oz water twice daily until bowel movement. May shower, no submersive bathing. Follow up in clinic in 2-4 weeks for wound check and staple removal. No driving while taking narcotic pain medications. Follow up with primary care provider and/or medical subspecialist following discharge as well. May take acetaminophen 325 mg, two tablets every 6 hours as needed for pain. Reglan as needed for nausea. Oxycodone as needed for sever pain. Please see prescriptions for specific dosing instructions. No Smoking: If you smoke, Please STOP! Call for help. Follow-up with: Leland Sumner MD [Provider Admit Priv/Credential] -
[2020-04-08] MEDS ORDERED: ACETAMINOPHEN 500 MG TABLET PO PRN (12:00)
--- NOTE | 2020-04-08 12:15 | DISCHARGE SUMMARY ---
"Discharge Summary Admit Date: 04/06/20 Discharge Date: 04/08/20 Discharging Provider: Burak Code Status: Attempt Resuscitation Condition at Discharge: Good Discharge Disposition: 01 Home, Self Care - DIAGNOSES Admission Diagnoses: 1. Abdominal pain 2. Appendicitis 3. Abdominal sepsis 4. Nonsupportive, nonperforated appendicitis 5. Umbilical hernia Discharge Diagnoses with Status of Each Condition: 1. Abdominal pain - RESOLVED 2. Appendicitis - RESOLVED 3. Abdominal sepsis - RESOLVED 4. Nonsupportive, nonperforated appendicitis - RESOLVED 5. Umbilical hernia - RESOLVED - HPI History of Present Illness: 24-year-old female with 24-hour history of abdominal pain left lower quadrant. Associated nausea and vomiting. Febrile episode. No prior abdominal surgical intervention. Comorbid states including systemic lupus, currently on no steroid therapy. No therapy for her SLE. Last ate 6 PM the day of presentation. CT scan ER evaluation noted for appendicitis surgery called. - CONSULTS | PROCEDURES Procedures: Procedure Performed: 1. Diagnostic laparoscopy 2. Laparoscopic appendectomy 3. Extensive lysis of adhesions 4. Drainage of abscess 5. Abdominal washout 6. Open umbilical hernia repair 7. Tap block per anesthesia - HOSPITAL COURSE Hospital Course: Patient admitted with acute appendicitis. Patient underwent operative intervention as listed in the electronic medical record. Tolerated procedure well for which there was no complication. Postoperatively the patient was managed for postoperative analgesia and resumption of bowel function. Patient had successfully passed trial of void. Tolerated oral intake without any complication. Denied nausea denied vomiting. Was advanced for diet without any complication. Was counseled that given evidence of the absence of suppuration in the setting of the patient's acute appendicitis the would be no need to recommend continued antibiotics; patient was, however, maintained on antibiotics during the hospital stay. Discharge instructions given. Analgesia with tramadol provided at time of dis charge. Patient plan for follow-up and will be notified of pathology once returned. - ALLERGIES Allergies/Adverse Reactions: Allergies Allergy/AdvReac Type Severity Reaction Status Date / Time amoxicillin Allergy Unknown Verified 04/06/20 18:06 doxycycline Allergy Unknown Verified 12/15/19 10:17 Penicillins Allergy Rash Verified 04/06/20 18:06 hydrocodone bitartrate * AdvReac Severe Emesis Verified 04/06/20 18:06 [From Vicodin] - MEDICATIONS Home Medications: Ambulatory Orders Medication Instructions Recorded Confirmed Acetaminophen [Tylenol] 650 mg PO Q6H PRN #30 tablet 04/08/20 Docusate Sodium 100Mg Capsule 100 mg PO BID #60 capsule 04/08/20 [Colace 100Mg Capsule] Methocarbamol [Robaxin-750] 750 mg PO Q8HR PRN #30 tablet 04/08/20 Metoclopramide [Reglan] 10 mg PO Q6H PRN #30 tablet 04/08/20 methocarbamoL [Robaxin] 500 mg PO Q6HR tablet 04/08/20 oxyCODONE [Roxicodone] 5 mg PO Q4HR PRN #30 tablet 04/08/20 polyethylene glycoL 3350 [Miralax] 17 gm PO DAILY #30 packet 04/08/20 - PHYSICAL EXAM AT DISCHARGE General Appearance: positive: No acute distress Eyes Bilateral: positive: Normal inspection, PERRL, EOMI ENT: positive: ENT inspection nml Neck: positive: Nml inspection Respiratory: positive: Chest non-tender, No respiratory distress, Breath sounds nml. negative: Wheezes, Rales, Rhonchi Cardiovascular: positive: Regular rate & rhythm Abdomen: positive: Other. negative: No distention, Tenderness, Guarding, Rebound Skin: positive: Color nml Extremities: positive: Non-tender, Full ROM, Nml appearance Neurologic/Psychiatric: positive: Oriented x3, CN's nml (2-12), Motor nml - LABS Result Diagrams: 04/08/20 05:20 04/08/20 05:20 - DIAGNOSTIC IMAGING Diagnostic Imaging Results: Final report reviewed - SEPSIS Current Stage of Sepsis: Resolved Possible source of Sepsis: GI tract/intra-abdominal Confirmed Source and Organism (if known) of Sepsis: Appendix, inflamed. Sepsis resolved following resection. Sepsis Associated Organ Dysfunction: Abdominal cavity/GI tract. - FOLLOW UP Follow Up: DISCHARGE INSTRUCTIONS TEMPLATE: No heavy lifting, pushing, or pulling. Stairs are allowed, no strenuous/e xertional activities. 5-10lbs weight carrying limit (i.e. gallon of milk) If provided, abdominal binder while out of bed and while ambulating. Call or proceed to clinic/ER for fevers, severe pain, nausea, vomiting, inability to pass flatus/stool, bleeding, wound redness/discharge, weakness, excessively loose stool/diarrhea, or for any other reasonably worrisome symptom or concern. Soft diet, no raw vegetables, avoid high fiber foods. Colace 100mg by mouth twice to three times daily while taking narcotic pain medication. If no bowel movement in 24-48hr, may take 17g Miralax in 8oz water twice daily until bowel movement. May shower, no submersive bathing. Follow up in clinic in 2-4 weeks for wound check and staple removal. No driving while taking narcotic pain medications. Follow up with primary care provider and/or medical subspecialist following discharge as well."
[2020-04-08 13:24] VITALS: BP 104/60
== END 2020-04-08 12:20 | disposition home or self-care (01) ==
LOC: ED 17:58 → MS2 20:55
PROVIDERS: ADMIT Surgery; ATTEND Surgery
PROC: 0DTJ4ZZ Resection of Appendix, Percutaneous Endoscopic Approach (ICD-10-PCS; principal; 2020-04-06)
DX: K35.80 Unspecified acute appendicitis (principal); K42.9 Umbilical hernia without obstruction or gangrene; M32.9 Systemic lupus erythematosus, unspecified; M79.7 Fibromyalgia; J45.909 Unspecified asthma, uncomplicated; Z79.51 Long term (current) use of inhaled steroids; Z79.899 Other long term (current) drug therapy
CPT/HCPCS: 36415; 44970; 74177; 76856; 80053; 81003; 81025; 83690; 85025; 88304; 93975; 96365; 96368; 96375; 99284; 99285; A9270; G0378; J0131; J1170; J2765; J7120; Q9967; 81001; 87086

== ENCOUNTER 2020-06-07 21:22 | Outpatient (CLI) | payer OTHER | END 2020-06-07 21:23 | disposition critical access hospital (66) | LOC: EMS 21:22 | PROVIDERS: ATTEND Surgery | DX: M54.5 Low back pain (principal); R10.30 Lower abdominal pain, unspecified; R07.9 Chest pain, unspecified; M25.512 Pain in left shoulder; V53.5XXA Driver of pick-up truck or van injured in collision with car, pick-up truck or van in traffic accident, initial encounter; Y92.413 State road as the place of occurrence of the external cause | CPT/HCPCS: A0425; A0429 ==

== ENCOUNTER 2020-06-07 21:35 | Emergency (ER) | payer OTHER ==
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
[2020-06-07] MEDS ORDERED: ONDANSETRON ODT 4 MG TABLET TL STA (22:10)
[2020-06-07] MEDS ORDERED: KETOROLAC 60 MG/2 ML VIAL IM STA (23:22)
[2020-06-07 23:46] VITALS: BP 105/72
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
== END 2020-06-08 00:04 | disposition home or self-care (01) ==
LOC: ED 21:35
DX: S39.012A Strain of muscle, fascia and tendon of lower back, initial encounter (principal); S20.219A Contusion of unspecified front wall of thorax, initial encounter; V43.52XA Car driver injured in collision with other type car in traffic accident, initial encounter; Y92.410 Unspecified street and highway as the place of occurrence of the external cause
CPT/HCPCS: 71046; 72100; 96372; 99283; 99284; Q0162

== ENCOUNTER 2020-06-12 23:49 | Emergency (ER) | payer OTHER ==
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
[2020-06-13 00:13] LABS: BILIRUBIN,URINE NEGATIVE (NEGATIVE); CLARITY,URINE CLEAR (CLEAR); GLUCOSE, URINE (UA) NEGATIVE (NEGATIVE); KETONES,URINE (UA) NEGATIVE (NEGATIVE); LEUKOCYTE ESTERASE, URINE NEGATIVE (NEGATIVE); NITRITE,URINE NEGATIVE (NEGATIVE); OCCULT BLOOD,URINE NEGATIVE (NEGATIVE); PROTEIN,URINE NEGATIVE (NEGATIVE); UROBILINOGEN,URINE 0.2 (NORMAL) E.U./dL (NORMAL)
[2020-06-13 00:22] LABS: BACTERIA,URINE None Seen /HPF (None Seen); RBC,URINE None Seen /HPF (0-5); SQUAMOUS EPITHELIAL CELL,UR NONE SEEN (<= Few)
[2020-06-13] MEDS ORDERED: HYDROcod/ACETAM 5/325 MG TABLET PO STA (00:45)
[2020-06-13] MEDS ORDERED: CYCLOBENZAPRINE 10 MG TABLET PO STA (00:45)
[2020-06-13] MEDS ORDERED: ONDANSETRON ODT 4 MG TABLET TL STA (00:57)
[2020-06-13 01:10] VITALS: BP 129/74
== END 2020-06-13 00:55 | disposition home or self-care (01) ==
LOC: ED 23:49
DX: M54.5 Low back pain (principal); R20.2 Paresthesia of skin; V89.2XXA Person injured in unspecified motor-vehicle accident, traffic, initial encounter
CPT/HCPCS: 81001; 99283; A9270; Q0162; 87086

== ENCOUNTER 2020-11-01 21:04 | Emergency (ER) | payer SELFPAY ==
[2020-11-01] MEDS ORDERED: KETOROLAC 30 MG/ML VIAL IVP STA (21:19)
[2020-11-01] MEDS ORDERED: DEXAMETHASONE 10 MG/ML VIAL IVP STA (21:19)
[2020-11-01 21:30] LABS: BASOPHILS % (AUTO) 0.2 %; EOSINOPHILS # (AUTO) 0.1 10^3/uL (0.0-0.7); EOSINOPHILS % (AUTO) 0.6 %; HCT - HEMATOCRIT 41.3 % (37.0-47.0); HGB - HEMOGLOBIN 14.1 g/dL (12.0-16.0); LYMPHOCYTES # (AUTO) 4.5 10^3/uL (1.5-3.5); LYMPHOCYTES % (AUTO) 41.4 %; MEAN CORPUSCULAR HEMOGLOBIN 31.8 pg (27.0-31.0); MEAN CORPUSCULAR HGB CONC 34.1 g/dL (32.0-36.0); MEAN PLATELET VOLUME 9.6 fL (7.9-10.8); MONOCYTES # (AUTO) 0.4 10^3/uL (0.0-1.0); MONOCYTES % (AUTO) 3.8 %; NEUTROPHILS # (AUTO) 5.8 10^3/uL (1.5-6.6); NEUTROPHILS % (AUTO) 53.8 %; PLT - PLATELET COUNT 323 10^3/uL (130-450); RED BLOOD COUNT 4.44 10^6/uL (4.20-5.40); RED CELL DISTRIBUTION WIDTH 11.7 % (12.0-15.0); WHITE BLOOD COUNT 10.8 x10^3/uL (4.8-10.8)
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
[2020-11-01 21:49] LABS: ALBUMIN 4.3 g/dL (3.2-5.5); ALBUMIN/GLOBULIN RATIO 1.3 (1.0-2.2); BILIRUBIN,TOTAL 0.3 mg/dL (0.2-1.0); CALCIUM 9.4 mg/dL (8.5-10.3); CREATININE 0.8 mg/dL (0.4-1.0); POTASSIUM 3.6 mmol/L (3.5-5.0); TOTAL PROTEIN 7.7 g/dL (6.7-8.2)
[2020-11-01 21:51] LABS: BILIRUBIN,URINE NEGATIVE (NEGATIVE); GLUCOSE, URINE (UA) NEGATIVE (NEGATIVE); KETONES,URINE (UA) NEGATIVE (NEGATIVE); LEUKOCYTE ESTERASE, URINE NEGATIVE (NEGATIVE); NITRITE,URINE NEGATIVE (NEGATIVE); OCCULT BLOOD,URINE NEGATIVE (NEGATIVE); PROTEIN,URINE NEGATIVE (NEGATIVE); UROBILINOGEN,URINE 0.2 (NORMAL) E.U./dL (NORMAL)
[2020-11-01 21:53] LABS: CLARITY,URINE CLEAR (CLEAR); HCG UR QUAL NEGATIVE
[2020-11-01] MEDS ORDERED: MAG HYDROX/AL HYDROX/SIMETH 30 ML UDC PO STA (23:28)
[2020-11-02] MEDS ORDERED: oxyCODONE/ACET 5/325 Prepack 4 PO STA (00:32)
[2020-11-02 00:37] VITALS: BP 109/73
--- NOTE | 2020-11-02 08:52 | XRAY Report ---
PROCEDURE: Chest 1 View X-Ray INDICATIONS: chest pain TECHNIQUE: One view of the chest was acquired. COMPARISON: 06/07/2020 FINDINGS: Surgical changes and devices: None. Lungs and pleura: No pleural effusions or pneumothorax. Lungs are clear. Mediastinum: Mediastinal contours appear normal. Heart size is normal. Bones and chest wall: No suspicious bony lesions. Overlying soft tissues appear unremarkable. IMPRESSION: No acute disease Reviewed by: Paulie House MD on 11/02/2020 8:51 AM PST Approved by: Paulie House MD on 11/02/2020 8:51 AM PST Station ID: [id number]
== END 2020-11-02 00:51 | disposition home or self-care (01) ==
LOC: ED 21:04
DX: R07.1 Chest pain on breathing (principal); R10.13 Epigastric pain; M79.7 Fibromyalgia
CPT/HCPCS: 36415; 71045; 80053; 81003; 81025; 83690; 84484; 85025; 85379; 93005; 96374; 99284; A9270; 81001; 87086

== ENCOUNTER 2020-12-22 21:45 | Emergency (ER) | payer OTHER ==
--- OUTSIDE RECORDS SUMMARY | 2020-12-22 21:48 | EXTERNAL MEDICAL SUMMARY RPT | Continuity of Care Document ---
:1995 Demographics Phone Unavailable Preferred Language Kuwaiti Marital Status Unknown Voodoo Affiliation Unknown Race Unknown Ethnic Group Unknown Author Organization [place] Address [address] [phone] Phone Care Team Providers Name Role Phone Fly Unavailable Unavailable Problems date description facility 20200923 Palpitations [facility] Procedures date description facility 20200923 [facility] Vital Signs date measurement value source 20200923 BMI 29.2 kg/m2 20200923 BP_diastolic 69 mm[Hg] 20200923 BP_systolic 113 mm[Hg] 20200923 heart_rate 87 /min 20200923 height_metric 157.48 cm 20200923 height_standard 62 in 20200923 respiration_rate 12 /min 20200923 temperature_metric 36.33 C 20200923 temperature_standard 97.4 F 20200923 weight_metric 72.57 kg 20200923 weight_standard 159.99 lb Social History date description facility [id number]
--- OUTSIDE RECORDS SUMMARY | 2020-12-22 22:02 | EXTERNAL MEDICAL SUMMARY RPT | Continuity of Care Document ---
:1995 Demographics Phone Unavailable Preferred Language Latvian Marital Status Unknown Pentecostalism Affiliation Unknown Race Unknown Ethnic Group Unknown Author Organization [place] Address [address] [phone] Phone Care Team Providers Name Role Phone Fly Unavailable Unavailable Problems date description facility 20200923 Palpitations [facility] Procedures date description facility 20200923 [facility] Vital Signs date measurement value source 20200923 BMI 29.2 kg/m2 20200923 BP_diastolic 69 mm[Hg] 20200923 BP_systolic 113 mm[Hg] 20200923 heart_rate 87 /min 20200923 height_metric 157.48 cm 20200923 height_standard 62 in 20200923 respiration_rate 12 /min 20200923 temperature_metric 36.33 C 20200923 temperature_standard 97.4 F 20200923 weight_metric 72.57 kg 20200923 weight_standard 159.99 lb Social History date description facility [id number]
--- NOTE | 2020-12-23 01:03 | ED Physician Documentation ---
History of Present Illness - Stated complaint Stated Complaint: L SHOULDER PX, UPPER BACK PX - Chief complaint Chief Complaint: Ext Problem - History obtained from History obtained from: Patient - History of Present Illness Timing: How many weeks ago (3) Pain level max: 7 Pain level now: 3 Improved by: rest Worsened by: movement - Additonal information Additional information: c/o 3 weeks of gradual onset, steadily progressive atraumatic left shoulder pain. patient does not have a PMD; she says this had been a consequence of not having insurance but she says she recently was get insurance and is in the process of trying to establish with a PMD. the pain is distinctly worse with movement at left shoulder, relieved with rest. she says she took a dose of gabapentin without improvement (this was an old prescription of hers). Review of Systems Musculoskeletal: reports: Joint pain (left shoulder). 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, Other : Chronic bladder infection HEENT: None Psych: Depression, Anxiety, Panic attacks, Claustrophobia Musculoskeletal: Fibromyalgia, Other Derm: None - Past Surgical History Past Surgical History: Yes General: Appendectomy Ortho: Arthroscopic surgery HEENT: Other - Present Medications Home Medications: Ambulatory Orders Medication Instructions Recorded Confirmed Cyclobenzaprine [Flexeril] 10 mg PO TID PRN #20 tablet 12/23/20 HYDROcod/ACETAM 5/325 [[place] 5/325] 1 - 2 tablet PO Q6H PRN #14 tablet 12/23/20 Ondansetron Odt [Zofran] 4 mg TL Q6H PRN #10 tablet 12/23/20 - Allergies Allergies/Adverse Reactions: Allergies Allergy/AdvReac Type Severity Reaction Status Date / Time amoxicillin Allergy Unknown Verified 12/22/20 21:54 doxycycline Allergy Unknown Verified 12/22/20 21:54 Penicillins Allergy Rash Verified 12/22/20 21:54 - Social History Does the pt smoke?: No Smoking Status: Never smoker Does the pt drink ETOH?: Yes Does the pt have substance abuse?: No - Immunizations Immunizations are current?: Yes - POLST Patient has POLST: No PD ED PE NORMAL - Vitals Vital signs reviewed: Yes - General General: Alert and oriented X 3, No acute distress (NAD at rest but appears to have painful discomfort with ROM left shoulder), Well developed/nourished - Derm Derm: Normal color, No rash - Extremities Extremities: No deformity PD ED PE EXPANDED - Extremities Extremities: Limited ROM, Other (left shoulder: TTP anterolateral aspects without swelling, erythema, or abnormal warmth to touch. pain limits abduction to 30 degrees, with limited extension and internal rotation due to pain) Results - Vitals Vitals: Oxygen O2 Source Room air PD MEDICAL DECISION MAKING - ED course Complexity details: considered differential, d/w patient ED course: atraumatic left shoulder pain of gradual onset but steadily progressive x 3 weeks. emergent testing not indicated at this time. differential includes rotator cuff tendinopathy, bursitis, DJD. She is provided a sling and prescriptions for vicodin, flexeril, and zofran (she says the pain gets so intense as to cause nausea at times). she says she will pursue outpatient follow up now that she has insurance Departure - Departure Disposition: 01 Home, Self Care Clinical Impression: Shoulder pain, left Qualifiers: Chronicity: acute Qualified Code(s): M25.512 - Pain in left shoulder Condition: Good Instructions: ED Sling, ED Shoulder Pain [facility] Prescriptions: Cyclobenzaprine [Flexeril] 10 mg PO TID PRN #20 tablet PRN Reason: Spasms HYDROcod/ACETAM 5/325 [[place] 5/325] 1 - 2 tablet PO Q6H PRN #14 tablet PRN Reason: Pain Ondansetron Odt [Zofran] 4 mg TL Q6H PRN #10 tablet PRN Reason: Nausea / Vomiting Forms: Activity restrictions Discharge Date/Time: 12/23/20 02:08
[2020-12-23 01:53] VITALS: BP 120/81
[2020-12-23] MEDS ORDERED: HYDROcod/ACETAM 5/325 MG TABLET PO STA (01:54)
[2020-12-23] MEDS ORDERED: CYCLOBENZAPRINE 10 MG TABLET PO STA (01:54)
[2020-12-23] MEDS ORDERED: ONDANSETRON ODT 4 MG TABLET TL STA (01:54)
== END 2020-12-23 02:08 | disposition home or self-care (01) ==
LOC: ED 21:45
DX: M25.512 Pain in left shoulder (principal)
CPT/HCPCS: 99283; A9270; Q0162

== ENCOUNTER 2021-01-17 20:50 | Emergency (ER) | payer OTHER ==
--- OUTSIDE RECORDS SUMMARY | 2021-01-17 20:53 | EXTERNAL MEDICAL SUMMARY RPT | Continuity of Care Document ---
:1995 Demographics Phone Unavailable Preferred Language Cambodian Marital Status Unknown Jewish Affiliation Unknown Race Unknown Ethnic Group Unknown Author Organization [place] Address [address] [phone] Phone Care Team Providers Name Role Phone Fly Unavailable Unavailable Problems date description facility 20200923 [facility]
--- OUTSIDE RECORDS SUMMARY | 2021-01-17 20:56 | EXTERNAL MEDICAL SUMMARY RPT | Continuity of Care Document ---
:1995 Demographics Phone Unavailable Preferred Language Tunisian Marital Status Unknown Latter-Day Affiliation Unknown Race Unknown Ethnic Group Unknown Author Organization [place] Address [address] [phone] Phone Care Team Providers Name Role Phone Fly Unavailable Unavailable Problems date description facility 20200923 [facility]
[2021-01-17 21:16] LABS: BILIRUBIN,URINE NEGATIVE (NEGATIVE); GLUCOSE, URINE (UA) NEGATIVE (NEGATIVE); KETONES,URINE (UA) NEGATIVE (NEGATIVE); LEUKOCYTE ESTERASE, URINE NEGATIVE (NEGATIVE); NITRITE,URINE NEGATIVE (NEGATIVE); OCCULT BLOOD,URINE NEGATIVE (NEGATIVE); PROTEIN,URINE NEGATIVE (NEGATIVE); UROBILINOGEN,URINE 0.2 (NORMAL) E.U./dL (NORMAL)
[2021-01-17 21:18] LABS: BASOPHILS % (AUTO) 0.2 %; EOSINOPHILS # (AUTO) 0.1 10^3/uL (0.0-0.7); EOSINOPHILS % (AUTO) 0.6 %; HGB - HEMOGLOBIN 14.4 g/dL (12.0-16.0); LYMPHOCYTES # (AUTO) 2.4 10^3/uL (1.5-3.5); LYMPHOCYTES % (AUTO) 22.7 %; MEAN CORPUSCULAR HEMOGLOBIN 31.8 pg (27.0-31.0); MEAN CORPUSCULAR HGB CONC 35.1 g/dL (32.0-36.0); MEAN CORPUSCULAR VOLUME 90.5 fL (81.0-99.0); MONOCYTES # (AUTO) 0.4 10^3/uL (0.0-1.0); NEUTROPHILS # (AUTO) 7.6 10^3/uL (1.5-6.6); NEUTROPHILS % (AUTO) 72.2 %; PLT - PLATELET COUNT 300 10^3/uL (130-450); RED BLOOD COUNT 4.53 10^6/uL (4.20-5.40); RED CELL DISTRIBUTION WIDTH 11.9 % (12.0-15.0); WHITE BLOOD COUNT 10.5 x10^3/uL (4.8-10.8)
[2021-01-17 21:18] LABS: CLARITY,URINE CLEAR (CLEAR); HCG UR QUAL NEGATIVE
[2021-01-17 21:32] LABS: ALBUMIN 4.7 g/dL (3.2-5.5); ALBUMIN/GLOBULIN RATIO 1.5 (1.0-2.2); BILIRUBIN,TOTAL 0.6 mg/dL (0.2-1.0); CALCIUM 9.2 mg/dL (8.5-10.3); CREATININE 0.7 mg/dL (0.4-1.0); POTASSIUM 3.6 mmol/L (3.5-5.0); TOTAL PROTEIN 7.8 g/dL (6.7-8.2)
[2021-01-17] MEDS ORDERED: ONDANSETRON 4 MG/2 ML VIAL IVP STA (21:38)
[2021-01-17] MEDS ORDERED: HYDROmorphone 1 MG/ML CARPUJECT IVP STA ×2 (21:38→23:54)
--- NOTE | 2021-01-17 23:44 | ED Physician Documentation ---
PD HPI ABD PAIN - Stated complaint Stated Complaint: ABD PX - Chief complaint Chief Complaint: Abd Pain - History obtained from History obtained from: Patient - History of Present Illness Timing - onset: Today Timing - duration: Hours Timing - details: Abrupt onset, Still present Quality: Sharp, Pain Location: Suprapubic Radiation: Lower back Improved by: Laying still Worsened by: Moving, Palpation Associated symptoms: Nausea. No: Vomiting Similar symptoms before: Diagnosis (ovarian cyst) Recently seen: Not recently seen - Additional information Additional information: Previously well 25-year-old female who has had her appendix out has had episodes previously of pelvic pain usually lasting 1 to 3 days and she has once had a severe episode that appeared to be related to ovarian cyst. She is having another episode today pain is severe and she has come to the emergency department. Review of Systems Constitutional: denies: Fever Eyes: denies: Decreased vision Ears: denies: Ear pain Nose: denies: Congestion Throat: denies: Sore throat Cardiac: denies: Chest pain / pressure, Palpitations Respiratory: denies: Dyspnea, Cough GI: reports: Abdominal Pain, Nausea. 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: Ovarian cysts, Other : Chronic bladder infection HEENT: None Psych: Depression, Anxiety, Panic attacks, Claustrophobia Musculoskeletal: Fibromyalgia, Other Derm: None - Past Surgical History Past Surgical History: Yes General: Appendectomy Ortho: Arthroscopic surgery HEENT: Other - Present Medications Home Medications: Ambulatory Orders Medication Instructions Recorded Confirmed Ondansetron Odt [Zofran] 4 mg TL Q6H PRN #10 tablet 12/23/20 01/17/21 Oxycodone HCl/Acetaminophen 1 - 2 each PO Q6H PRN #14 tablet 01/17/21 [Percocet 5-325 mg Tablet] - Allergies Allergies/Adverse Reactions: Allergies Allergy/AdvReac Type Severity Reaction Status Date / Time amoxicillin Allergy Unknown Verified 01/17/21 20:53 doxycycline Allergy Unknown Verified 01/17/21 20:53 Penicillins Allergy Rash Verified 01/17/21 20:53 - Social History Does the pt smoke?: No Smoking Status: Never smoker Does the pt drink ETOH?: Yes Does the pt have substance abuse?: No - Immunizations Immunizations are current?: Yes - POLST Patient has POLST: No PD ED PE NORMAL - Vitals Vital signs reviewed: Yes (Hypertensive) - General General: Alert and oriented X 3, No acute distress, Well developed/nourished, Other (The patient has a heating pack across her lower abdomen and is curled in the position sitting upright.) - HEENT HEENT: Atraumatic, PERRL, EOMI - Neck Neck: Supple, no meningeal sign, No bony TTP - Cardiac Cardiac: RRR, No murmur - Respiratory Respiratory: No respiratory distress, Clear bilaterally - Abdomen Abdomen: Normal bowel sounds, Soft, Non distended, No organomegaly, Other (Mild suprapubic tenderness to deep palpation without guarding) - Back Back: No CVA TTP, No spinal TTP - Derm Derm: Normal color, Warm and dry, No rash - Extremities Extremities: No deformity, No edema - Neuro Neuro: Alert and oriented X 3, guncotton packer 2-12 intact, No motor deficit, No sensory deficit, Normal speech Eye Opening: Spontaneous Motor: Obeys Commands Verbal: Oriented GCS Score: 15 - Psych Psych: Normal mood, Normal affect Results - Vitals Vitals: Vital Signs - 24 hr 01/17/21 01/17/21 01/17/21 20:53 21:50 22:03 Temperature 36.6 C 36.8 C Heart Rate 89 104 H 93 Respiratory 18 16 18 Rate Blood Pressure 126/85 H 120/81 H 125/88 H O2 Saturation 100 100 99 01/17/21 01/18/21 23:38 00:21 Temperature 36.7 C 36.5 C Heart Rate 86 89 Respiratory 16 16 Rate Blood Pressure 114/83 H 119/91 H O2 Saturation 86 L 98 Oxygen O2 Source Room air - Labs Labs: Laboratory Tests 01/17/21 01/17/21 01/17/21 21:08 21:14 21:14 WBC 10.5 RBC 4.53 Hgb 14.4 Hct 41.0 MCV 90.5 MCH 31.8 H MCHC 35.1 RDW 11.9 L Plt Count 300 MPV 9.0 Neut # (Auto) 7.6 H Lymph # (Auto) 2.4 [place] # (Auto) 0.4 Eos # (Auto) 0.1 Baso # (Auto) 0.0 Absolute Nucleated RBC 0.00 Nucleated RBC % 0.0 Sodium 135 Potassium 3.6 Chloride 101 Carbon Dioxide 24 Anion Gap 10.0 BUN 20 Creatinine 0.7 Estimated GFR (MDRD) 102 Glucose 131 H Calcium 9.2 Total Bilirubin 0.6 AST 17 ALT 16 Alkaline Phosphatase 93 Total Protein 7.8 Albumin 4.7 Globulin 3.1 Albumin/Globulin Ratio 1.5 Lipase 22 Urine Color YELLOW Urine Clarity CLEAR Urine pH 7.0 Ur Specific [place] 1.025 Urine Protein NEGATIVE Urine Glucose (UA) NEGATIVE Urine Ketones NEGATIVE Urine Occult Blood NEGATIVE Urine Nitrite NEGATIVE Urine Bilirubin NEGATIVE Urine Urobilinogen 0.2 (NORMAL) Ur Leukocyte Esterase NEGATIVE Ur Microscopic Review NOT INDICATED Urine Culture Comments NOT INDICATED Urine HCG, Qual NEGATIVE - Rads (name of study) u/s pelvis Radiology: Prelim report reviewed (Pression: Normal uterus and ovaries and small right paraovarian fluid could be physiologic or due to recent cyst rupture.), EMP read indepedently, See rad report PD MEDICAL DECISION MAKING - ED course Complexity details: reviewed results, re-evaluated patient, considered differential, d/w patient, d/w family ED course: 25-year-old female reports another episode of pelvic pain lower abdominal pain that is severe and has caused her to curl into a position for pain relief. She has had episodes of this similarly previously usually lasting 1 to 3 days. She has been diagnosed at one point with an ovarian cyst she states there was a cluster of cyst that ruptured and she had a follow-up showing things had return to normal. She has not had a prior diagnosis of endometriosis. She has had her appendix out. Today she is complaining of pain and nausea she is using a heating pack to her lower abdomen for relief and she has pain with movement.She is administered Dilaudid 0.5 mg intravenously with Zofran has some improvement in her pain she has further improvement with a second dose. I am concerned about the possibility of endometriosis in this female and I have asked the patient to follow-up with COSMETOLOGY EDUCATOR and we will give her a limited amount of pain medication. Departure - Departure Disposition: 01 Home, Self Care Clinical Impression: Pelvic pain Condition: Stable Instructions: ED Pelvic Pain [facility]O Follow-Up: [facility] [Provider Group] Prescriptions: Oxycodone HCl/Acetaminophen [Percocet 5-325 mg Tablet] 1 - 2 each PO Q6H PRN #14 tablet PRN Reason: pain Comments: Chelsea, today we did not find a specific reason for your acute pelvic pain and it appears you have had something similar to this over the years periodically lasting 1 to 3 days. This could represent endometriosis and a follow-up with COSMETOLOGY EDUCATOR is recommended. Call the [facility] to make an appointment as a follow-up from the emergency department. Forms: Activity restrictions Discharge Date/Time: 01/18/21 00:22
[2021-01-17] MEDS ORDERED: oxyCODONE/ACET 5/325 Prepack 4 PO STA (23:54)
[2021-01-18 00:22] VITALS: BP 119/91
--- NOTE | 2021-01-18 08:12 | Ultrasound Report ---
PROCEDURE: Pelvic w/Transvag+Doppler Comp INDICATIONS: pelvic pain, R TECHNIQUE: Real-time scanning was performed of the pelvic organs, with image documentation. Additional endovagi nal scanning was necessary due to incomplete visualization of the adnexal and endometrial structures by transabdominal scanning. COMPARISON: 04/06/2020 CT abdomen/pelvis. FINDINGS: No pathologic free abdominal or pelvic fluid. Uterus: Uterus is normal in size at 3.0 x 3.7 x 7.7 cm. The endometrium measures 5.8 mm in combined thickness. Ovaries: The right ovary measures 3.1 x 2.0 x 2.4 cm and the left measures 2.8 x 2.1 x 2.1 cm. IMPRESSION: Nonspecific findings, a definite source of right-sided pelvic pain is not seen. There is a small amou nt of free fluid within the peritoneal space on the right but in a ovulating patient this is an expec farzaneh it might represent a manifestation of a recently ruptured small right ovarian cyst, however Reviewed by: Jeremiah Real MD on 01/18/2021 8:10 AM PDT Approved by: Jeremiah Real MD on 01/18/2021 8:10 AM PDT Station ID: [id number]
== END 2021-01-18 00:22 | disposition home or self-care (01) ==
LOC: ED 20:50
DX: R10.2 Pelvic and perineal pain (principal); R11.0 Nausea; Z90.49 Acquired absence of other specified parts of digestive tract
CPT/HCPCS: 36415; 76830; 76856; 80053; 81003; 81025; 83690; 85025; 93975; 96374; 96375; 96376; 99284; J1170; 81001; 87086

== ENCOUNTER 2021-02-12 17:36 | Emergency (ER) | payer OTHER ==
[2021-02-12] MEDS ORDERED: HYOSCYAMINE SL 0.125 MG TABLET SL STA (18:15)
[2021-02-12] MEDS ORDERED: DICYCLOMINE 10 MG CAPSULE PO STA (18:15)
[2021-02-12] MEDS ORDERED: predniSONE 20 MG TABLET PO STA (18:15)
[2021-02-12 18:21] LABS: BILIRUBIN,URINE NEGATIVE (NEGATIVE); GLUCOSE, URINE (UA) NEGATIVE (NEGATIVE); KETONES,URINE (UA) NEGATIVE (NEGATIVE); LEUKOCYTE ESTERASE, URINE NEGATIVE (NEGATIVE); NITRITE,URINE NEGATIVE (NEGATIVE); OCCULT BLOOD,URINE MODERATE (NEGATIVE); PH,URINE 7.5 PH (5.0-7.5); PROTEIN,URINE NEGATIVE (NEGATIVE); UROBILINOGEN,URINE 0.2 (NORMAL) E.U./dL (NORMAL)
[2021-02-12 18:24] LABS: CLARITY,URINE CLEAR (CLEAR); HCG UR QUAL NEGATIVE
[2021-02-12 18:24] LABS: BASOPHILS % (AUTO) 0.3 %; EOSINOPHILS # (AUTO) 0.1 10^3/uL (0.0-0.7); EOSINOPHILS % (AUTO) 1.4 %; HCT - HEMATOCRIT 39.2 % (37.0-47.0); HGB - HEMOGLOBIN 13.8 g/dL (12.0-16.0); LYMPHOCYTES % (AUTO) 38.3 %; MEAN CORPUSCULAR HEMOGLOBIN 32.2 pg (27.0-31.0); MEAN CORPUSCULAR HGB CONC 35.2 g/dL (32.0-36.0); MEAN CORPUSCULAR VOLUME 91.6 fL (81.0-99.0); MEAN PLATELET VOLUME 9.7 fL (7.9-10.8); MONOCYTES # (AUTO) 0.4 10^3/uL (0.0-1.0); MONOCYTES % (AUTO) 4.5 %; NEUTROPHILS # (AUTO) 4.3 10^3/uL (1.5-6.6); NEUTROPHILS % (AUTO) 55.2 %; PLT - PLATELET COUNT 301 10^3/uL (130-450); RED BLOOD COUNT 4.28 10^6/uL (4.20-5.40); RED CELL DISTRIBUTION WIDTH 11.9 % (12.0-15.0); WHITE BLOOD COUNT 7.7 x10^3/uL (4.8-10.8)
--- NOTE | 2021-02-12 18:24 | ED Physician Documentation ---
PD HPI ABD PAIN - Stated complaint Stated Complaint: ABD PX/BLOODY STOOL - Chief complaint Chief Complaint: Abd Pain - History obtained from History obtained from: Patient - History of Present Illness Timing - onset: Today Timing - duration: Days Timing - details: Gradual onset, Intermittant Pain level max: 9 Pain level now: 9 Quality: No: Cramping, Aching, Sharp, Dull, Stabbing, Throbbing, Indigestion, Fullness/distended, Pain Location: All over / everywhere Improved by: Other (nothing) Worsened by: Eating Associated symptoms: Nausea, Diarrhea, Constipation, Hematochezia. No: Fever, Vomiting, Hematemesis, Melena, Dysuria, Hematuria - Additional information Additional information: Patient is a 25-year-old female who presents to the emergency department with ongoing abdominal pain for the past several months. She states she has intermittent blood in the stool as well. She states it is bright red in color. Occasionally has diarrhea. Occasionally constipation. Has had multiple negative work-ups including CT scans, rectal exams, blood work. No fevers. No chills. Has not had a colonoscopy. No family history of inflammatory bowel disease or IBS that she is aware of. Does have nausea but no vomiting. Occasionally she has diarrhea, other times she has constipation. 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, Other : Chronic bladder infection HEENT: None Psych: Depression, Anxiety, Panic attacks, Claustrophobia Musculoskeletal: Fibromyalgia, Other Derm: None - Past Surgical History Past Surgical History: Yes General: Appendectomy Ortho: Arthroscopic surgery HEENT: Other - Present Medications Home Medications: Ambulatory Orders Medication Instructions Recorded Confirmed Hyoscyamine Sulfate [Levsin-Sl] 0.125 mg SL Q6H PRN #30 02/12/21 Oxycodone HCl/Acetaminophen 1 - 2 each PO Q6H PRN #14 tablet 02/12/21 [Percocet 5-325 mg Tablet] predniSONE [Deltasone] 10 mg PO [id number] #42 tab 02/12/21 - Allergies Allergies/Adverse Reactions: Allergies Allergy/AdvReac Type Severity Reaction Status Date / Time amoxicillin Allergy Unknown Verified 02/12/21 17:45 doxycycline Allergy Unknown Verified 02/12/21 17:45 Penicillins Allergy Rash Verified 02/12/21 17:45 - Social History Does the pt smoke?: No Smoking Status: Never smoker Does the pt drink ETOH?: Yes Does the pt have substance abuse?: No - Immunizations Immunizations are current?: Yes - POLST Patient has POLST: No PD ED PE NORMAL - Vitals Vital signs reviewed: Yes - General General: Alert and oriented X 3, No acute distress - HEENT HEENT: Moist mucous membranes - Neck Neck: Supple, no meningeal sign - Cardiac Cardiac: RRR, Strong equal pulses - Respiratory Respiratory: No respiratory distress, Clear bilaterally - Abdomen Abdomen: Normal bowel sounds, Soft, Non distended, Other (Mild diffuse tenderness to palpation without peritoneal signs) - Rectal Rectal: Pt declined - Derm Derm: Warm and dry - Extremities Extremities: No edema, No calf tenderness / cord - Neuro Neuro: Alert and oriented X 3 - Psych Psych: Normal mood, Normal affect Results - Vitals Vitals: Vital Signs - 24 hr 02/12/21 02/12/21 17:40 19:40 Temperature 37.2 C 36.8 C Heart Rate 89 77 Respiratory 18 16 Rate Blood Pressure 134/74 H 134/75 H O2 Saturation 100 100 Oxygen O2 Source Room air - Labs Labs: Laboratory Tests 02/12/21 02/12/21 02/12/21 17:46 18:19 18:19 WBC 7.7 RBC 4.28 Hgb 13.8 Hct 39.2 MCV 91.6 MCH 32.2 H MCHC 35.2 RDW 11.9 L Plt Count 301 MPV 9.7 Neut # (Auto) 4.3 Lymph # (Auto) 3.0 [place] # (Auto) 0.4 Eos # (Auto) 0.1 Baso # (Auto) 0.0 Absolute Nucleated RBC 0.00 Nucleated RBC % 0.0 Sodium 139 Potassium 3.5 Chloride 106 Carbon Dioxide 24 Anion Gap 9.0 BUN 10 Creatinine 0.7 Estimated GFR (MDRD) 102 Glucose 104 H Calcium 9.8 Total Bilirubin 0.5 AST 18 ALT 17 Alkaline Phosphatase 95 Total Protein 7.5 Albumin 4.4 Globulin 3.1 Albumin/Globulin Ratio 1.4 Lipase 23 Urine Color YELLOW Urine Clarity CLEAR Urine pH 7.5 Ur Specific [place] 1.015 Urine Protein NEGATIVE Urine Glucose (UA) NEGATIVE Urine Ketones NEGATIVE Urine Occult Blood MODERATE H Urine Nitrite NEGATIVE Urine Bilirubin NEGATIVE Urine Urobilinogen 0.2 (NORMAL) Ur Leukocyte Esterase NEGATIVE Urine RBC 0-5 Urine WBC 0-3 Ur Squamous Epith Cells RARE Squamous Urine Bacteria Rare Ur Microscopic Review INDICATED Urine Culture Comments NOT INDICATED Urine HCG, Qual NEGATIVE PD MEDICAL DECISION MAKING - ED course Complexity details: reviewed old records, reviewed results, re-evaluated patient, considered differential, d/w patient ED course: Patient is a 25-year-old female with chronic abdominal pain, hematochezia. She has been worked up multiple times including CT scans, pelvic US, and rectal exams for this with no cause found. Has never had a colonoscopy. Her uncle does have a history of Crohn's disease. Possible that she has inflammatory bowel disease as well versus IBS. Pain well controlled here. No significant lab abnormalities. We will refer her to general surgery for colonoscopy. Patient does need to follow-up with GI as well, but does not currently have a PCP. Patient is well-appearing, nontoxic. Afebrile. Patient counseled regarding signs and symptoms for which I believe and urgent re-evaluation would be necessary. Patient with good understanding of and agreement to plan and is comfortable going home at this time This document was made in part using voice recognition software. While efforts are made to proofread this document, sound alike and grammatical errors may occur. Departure - Departure Disposition: 01 Home, Self Care Clinical Impression: Abdominal pain, Hematochezia Condition: Good Instructions: Disease Crohn Dc, Colitis Ulcerative Dc, ED Abdominal Pain Unkn Cause, ED IBS Follow-Up: Abdirahman Valdes MD [Provider Admit Priv/Credential] - [facility] [Provider Group] Prescriptions: predniSONE [Deltasone] 10 mg PO [id number] #42 tab Hyoscyamine Sulfate [Levsin-Sl] 0.125 mg SL Q6H PRN #30 PRN Reason: Abdominal Pain Oxycodone HCl/Acetaminophen [Percocet 5-325 mg Tablet] 1 - 2 each PO Q6H PRN #14 tablet PRN Reason: pain Comments: Follow-up with your doctor for further care. It is important that you follow-up with a dispatcher chief oil. Dr. Valdes may be able to get you in quicker for a colonoscopy. Your symptoms are concerning for IBS or possibly an inflammatory bowel disease such as Crohn's disease or ulcerative colitis. I am prescribing a short course of narcotic pain medication for you. These are potentially dangerous and addictive medications that should be used carefully. These medications may constipate you. Take an nakp-lmm-gmknajl stool softener (docusate) twice daily with plenty of water while taking these medications. If you go 24 hours without a bowel movement, take gmhj-ktx-nwjxbnh miralax, per package instructions. Do not drink or drive while taking these medications. If you received narcotic or sedating medications while in the emergency department, do not drive for 24 hours. Store this medication in a safe, secure place and out of reach of children. It is a violation of federal law to give or sell this medication to another rson or to use in a manner other than prescribed. The ED will not refill narcotic prescriptions, including prescriptions lost or stolen. To dispose of unwanted medications: 1. [facility] [address] in [place] has a medication drop box. They accept prescription medications (in pill form) Monday through Monday 9:00 a.m. to 5:00 p.m. 2. The [facility] accepts prescription medications (in pill form only) for disposal year round. Call for more information. 3. Contact the [facility] for the next [facility] sponsored prescription drug collection event. , [phone], or [phone]; Discharge Date/Time: 02/12/21 19:42
[2021-02-12 18:37] LABS: BACTERIA,URINE Rare /HPF (None Seen); RBC,URINE 0-5 /HPF (0-5); SQUAMOUS EPITHELIAL CELL,UR RARE Squamous (<= Few); WBC,URINE 0-3 /HPF (0-5)
[2021-02-12 18:39] LABS: ALBUMIN 4.4 g/dL (3.2-5.5); ALBUMIN/GLOBULIN RATIO 1.4 (1.0-2.2); BILIRUBIN,TOTAL 0.5 mg/dL (0.2-1.0); CALCIUM 9.8 mg/dL (8.5-10.3); CREATININE 0.7 mg/dL (0.4-1.0); POTASSIUM 3.5 mmol/L (3.5-5.0); TOTAL PROTEIN 7.5 g/dL (6.7-8.2)
[2021-02-12] MEDS ORDERED: oxyCODONE 5 MG TABLET PO STA (19:25)
[2021-02-12 19:42] VITALS: BP 134/75
== END 2021-02-12 19:42 | disposition home or self-care (01) ==
LOC: ED 17:36
DX: R10.9 Unspecified abdominal pain (principal); K92.1 Melena
CPT/HCPCS: 36415; 80053; 81001; 81025; 83690; 85025; 99283; 99284; A9270; J7512; 81003; 87086

== ENCOUNTER 2021-03-22 11:48 | Emergency (ER) | payer OTHER ==
[2021-03-22] MEDS ORDERED: MORPHINE 2 MG/ML CARPUJECT IVP STA (13:48)
[2021-03-22] MEDS ORDERED: CLINDAMYCIN 900 MG/50 ML 50 ML IV ONE (13:49)
--- NOTE | 2021-03-22 13:50 | ED Physician Documentation ---
PD HPI HEENT - Stated complaint Stated Complaint: RIGHT SIDE FACE DROOPING & EYE PX - Chief complaint Chief Complaint: Heent - History obtained from History obtained from: Patient - Additional information Additional information: 25-year-old woman with history of lupus and fibromyalgia presents with progressive facial swelling on the right starting today. Seems to be emanating from near the eye. Her vision is normal. She is photophobic. She does not wear contacts. She feels like the swelling has progressed to involve the right arm as well. No possibility of . 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, Other : Chronic bladder infection HEENT: None Psych: Depression, Anxiety, Panic attacks, Claustrophobia Musculoskeletal: Fibromyalgia, Other Derm: None - Past Surgical History Past Surgical History: Yes General: Appendectomy Ortho: Arthroscopic surgery HEENT: Other - Present Medications Home Medications: Ambulatory Orders Medication Instructions Recorded Confirmed HYDROcod/ACETAM 5/325 [[place] 5/325] 1 - 2 tab PO Q6H PRN #10 tablet 03/22/21 clindamycin HCL [Cleocin HCl] 300 mg PO QID #28 cap 03/22/21 predniSONE [Deltasone] 60 mg PO DAILY 5 Days #15 tablet 03/22/21 - Allergies Allergies/Adverse Reactions: Allergies Allergy/AdvReac Type Severity Reaction Status Date / Time amoxicillin Allergy Unknown Verified 03/22/21 12:22 doxycycline Allergy Unknown Verified 03/22/21 12:22 Penicillins Allergy Rash Verified 03/22/21 12:22 - Social History Does the pt smoke?: No Smoking Status: Never smoker Does the pt drink ETOH?: Yes Does the pt have substance abuse?: No - Immunizations Immunizations are current?: Yes - POLST Patient has POLST: No PD ED PE NORMAL - Vitals Vital signs reviewed: Yes - General General: Alert and oriented X 3, No acute distress - HEENT HEENT: PERRL, Other (There is a tiny little lesion that looks like a 1 mm sebaceous cyst on the lateral upper right eyelid that the patient says is chronic. The eyelid itself is quite swollen and tender as well with mild surrounding cellulitis in that area.) - Neck Neck: Supple, no meningeal sign, No bony TTP - Cardiac Cardiac: RRR, No murmur - Respiratory Respiratory: No respiratory distress, Clear bilaterally - Abdomen Abdomen: Non tender - Extremities Extremities: No edema, No calf tenderness / cord - Neuro Neuro: Alert and oriented X 3, house manager 2-12 intact - Psych Psych: Normal mood, Normal affect Results - Vitals Vitals: Vital Signs - 24 hr 03/22/21 03/22/21 03/22/21 12:18 14:54 16:01 Temperature 36.6 C 36.2 C L 36.4 C L Heart Rate 103 H 104 H 88 Respiratory 24 16 16 Rate Blood Pressure 124/70 111/83 H 116/70 O2 Saturation 99 100 98 03/22/21 17:45 Temperature 36.0 C L Heart Rate 96 Respiratory 16 Rate Blood Pressure 120/82 H O2 Saturation 100 Oxygen O2 Source Room air - Labs Labs: Laboratory Tests 03/22/21 03/22/21 14:16 14:16 WBC 7.3 RBC 4.49 Hgb 14.5 Hct 41.1 MCV 91.5 MCH 32.3 H MCHC 35.3 RDW 12.0 Plt Count 350 MPV 9.3 Neut # (Auto) 3.7 Lymph # (Auto) 3.2 [place] # (Auto) 0.4 Eos # (Auto) 0.1 Baso # (Auto) 0.0 Absolute Nucleated RBC 0.00 Nucleated RBC % 0.0 Sodium 138 Potassium 4.0 Chloride 106 Carbon Dioxide 22 Anion Gap 10.0 BUN 17 Creatinine 0.8 Estimated GFR (MDRD) 87 L Glucose 90 Calcium 9.5 PD MEDICAL DECISION MAKING - ED course ED course: 25-year-old woman presents with facial cellulitis. She does not appear in extremis but is quite uncomfortable. The cellulitis improved after the administration of IV clindamycin while being observed in the department. CT showed no evidence of orbital cellulitis. Departure - Departure Disposition: 01 Home, Self Care Clinical Impression: Facial cellulitis Condition: Good Record reviewed to determine appropriate education?: Yes Instructions: ED Cellulitis Facial Prescriptions: clindamycin HCL [Cleocin HCl] 300 mg PO QID #28 cap predniSONE [Deltasone] 60 mg PO DAILY 5 Days #15 tablet HYDROcod/ACETAM 5/325 [[place] 5/325] 1 - 2 tab PO Q6H PRN #10 tablet PRN Reason: Pain Comments: Return if worse or if new symptoms develop. Follow-up with your doctor Monday for recheck. I am prescribing a short course of narcotic pain medication for you. These are potentially dangerous and addictive medications that should be used carefully. These medications may constipate you. Take an hpaa-xds-uqzaxcp stool softener (docusate) twice daily with plenty of water while taking these medications. If you go 24 hours without a bowel movement, take gmvd-xwb-whrinok miralax, per package instructions. Do not drink or drive while taking these medications. If you received narcotic or sedating medications while in the emergency department, do not drive for 24 hours. Store this medication in a safe, secure place and out of reach of children. It is a violation of federal law to give or sell this medication to another person or to use in a manner other than prescribed. The ED will not refill narcotic prescriptions, including prescriptions lost or stolen. To dispose of unwanted medications: 1. [facility] [address] [address] [facility] in [place] has a medication drop box. They accept prescription medications (in pill form) Monday through Monday 9:00 a.m. to 5:00 p.m. 2. The [facility] Police Department accepts prescription medications (in pill form only) for disposal year round. Call for more information. 3. Contact the [facility] for the next [facility] sponsored prescription drug collection event. , [phone], or [phone]; Note that many narcotic pain relievers also contain Tylenol/acetaminophen. Please ensure that your total dose of acetaminophen from all sources does not exceed 3 g (3000 mg) per day. Forms: Activity restrictions Discharge Date/Time: 03/22/21 17:54
[2021-03-22 14:48] LABS: BASOPHILS % (AUTO) 0.4 %; EOSINOPHILS # (AUTO) 0.1 10^3/uL (0.0-0.7); EOSINOPHILS % (AUTO) 1.4 %; HCT - HEMATOCRIT 41.1 % (37.0-47.0); HGB - HEMOGLOBIN 14.5 g/dL (12.0-16.0); LYMPHOCYTES # (AUTO) 3.2 10^3/uL (1.5-3.5); LYMPHOCYTES % (AUTO) 43.1 %; MEAN CORPUSCULAR HEMOGLOBIN 32.3 pg (27.0-31.0); MEAN CORPUSCULAR HGB CONC 35.3 g/dL (32.0-36.0); MEAN CORPUSCULAR VOLUME 91.5 fL (81.0-99.0); MEAN PLATELET VOLUME 9.3 fL (7.9-10.8); MONOCYTES # (AUTO) 0.4 10^3/uL (0.0-1.0); MONOCYTES % (AUTO) 5.2 %; NEUTROPHILS # (AUTO) 3.7 10^3/uL (1.5-6.6); NEUTROPHILS % (AUTO) 49.8 %; PLT - PLATELET COUNT 350 10^3/uL (130-450); RED BLOOD COUNT 4.49 10^6/uL (4.20-5.40); WHITE BLOOD COUNT 7.3 x10^3/uL (4.8-10.8)
[2021-03-22 14:57] LABS: CALCIUM 9.5 mg/dL (8.5-10.3); CREATININE 0.8 mg/dL (0.4-1.0)
[2021-03-22] MEDS ORDERED: IOPAMIDOL-300 100 ML VIAL ONE (15:06)
[2021-03-22] MEDS ORDERED: IOPAMIDOL-300 100 ML VIAL IVP ONE (15:36)
[2021-03-22] MEDS ORDERED: KETOROLAC 15 MG/ML VIAL IVP STA (16:10)
[2021-03-22] MEDS ORDERED: SODIUM CHLORIDE 0.9% 1,000 ML IV STA (16:10)
--- NOTE | 2021-03-22 16:11 | CT Report ---
PROCEDURE: ORBITS W INDICATIONS: facial infection, eval orbital cellulitis CONTRAST: IV CONTRAST: Isovue 300 ml: 100 PO CONTRAST: *NO PO CONTRAST TECHNIQUE: After the administration of intravenous contrast, 3.0 mm axial images acquired through the orbits, wi th coronal reformatting. COMPARISON: None FINDINGS: Image quality: Excellent. Orbits: Globes are symmetrical. The optic nerves are normal in size and enhancement. No retrobulba r masses or fat abnormalities. The extra-ocular muscles are normal and symmetrical in appearance. L acrimal glands are normal. Optic chiasm is normal. Mild thickening of the right preseptal periorbita l soft tissues. Intracranial: The pituitary gland is normal, without sellar or suprasellar masses. Visualized cereb ral hemispheres, brainstem, and spinal cord appear normal. Bones and sinuses: Visualized calvarium and facial bones appear intact. Visualized sinuses and mast oids are clear. IMPRESSION: 1. No abscess. 2. No retrobulbar orbital inflammation, fluid collection or masses. Reviewed by: Lolis Wong MD, PhD on 03/22/2021 4:09 PM PDT Approved by: Lolis Wong MD, PhD on 03/22/2021 4:09 PM PDT Station ID: [id number]
[2021-03-22] MEDS ORDERED: DEXAMETHASONE 10 MG/ML VIAL IVP STA (16:57)
[2021-03-22 17:46] VITALS: BP 120/82
== END 2021-03-22 17:54 | disposition home or self-care (01) ==
LOC: ED 11:48
DX: H00.031 Abscess of right upper eyelid (principal)
CPT/HCPCS: 36415; 70481; 80048; 85025; 96365; 96366; 96375; 99284; 99285; Q9967

== ENCOUNTER 2021-05-07 14:06 | Emergency (ER) | payer OTHER ==
[2021-05-07 14:33] LABS: BASOPHILS % (AUTO) 0.3 %; EOSINOPHILS # (AUTO) 0.1 10^3/uL (0.0-0.7); EOSINOPHILS % (AUTO) 1.4 %; HCT - HEMATOCRIT 40.8 % (37.0-47.0); HGB - HEMOGLOBIN 13.5 g/dL (12.0-16.0); LYMPHOCYTES # (AUTO) 2.7 10^3/uL (1.5-3.5); LYMPHOCYTES % (AUTO) 33.6 %; MEAN CORPUSCULAR HEMOGLOBIN 32.5 pg (27.0-31.0); MEAN CORPUSCULAR HGB CONC 33.1 g/dL (32.0-36.0); MEAN CORPUSCULAR VOLUME 98.1 fL (81.0-99.0); MEAN PLATELET VOLUME 9.6 fL (7.9-10.8); MONOCYTES # (AUTO) 0.5 10^3/uL (0.0-1.0); MONOCYTES % (AUTO) 5.7 %; NEUTROPHILS # (AUTO) 4.6 10^3/uL (1.5-6.6); NEUTROPHILS % (AUTO) 58.7 %; PLT - PLATELET COUNT 269 10^3/uL (130-450); RED BLOOD COUNT 4.16 10^6/uL (4.20-5.40); RED CELL DISTRIBUTION WIDTH 12.1 % (12.0-15.0); WHITE BLOOD COUNT 7.9 x10^3/uL (4.8-10.8)
[2021-05-07 14:47] LABS: ALBUMIN/GLOBULIN RATIO 1.3 (1.0-2.2); BILIRUBIN,TOTAL 0.7 mg/dL (0.2-1.0)
[2021-05-07] MEDS ORDERED: SODIUM CHLORIDE 0.9% 1,000 ML IV STA (18:41)
[2021-05-07] MEDS ORDERED: HYDROmorphone 1 MG/ML CARPUJECT IVP STA (18:41)
[2021-05-07] MEDS ORDERED: ONDANSETRON 4 MG/2 ML VIAL IVP STA (18:41)
--- NOTE | 2021-05-07 18:49 | ED Physician Documentation ---
History of Present Illness - Stated complaint Stated Complaint: ABD PX - Chief complaint Chief Complaint: Abd Pain - Additonal information Additional information: 26-year-old female presents emergency department for further evaluation of what she now describes as chronic abdominal pain and rectal bleeding. She states that this has been an ongoing problem for at least 6 months. She has been seen in this ER multiple times with no worrisome findings. She reports that every day she has bright red stools. She states she had a bright red stool while in the waiting room. She is also reporting left low back pain. No saddle anesthesia or loss of bowel or bladder incontinence. She denies dysuria urgency or frequency. She states that she has had fevers every day for a month, but did not check her temperature today. Afebrile in triage. Pt states that the only way her abdominal pain improves is my "scrunching over." Pt is taking motrin/tylenol without relief of symptoms. Reports that to insurance changes she has been unable to obtain and PCP and the GI specialists she has called are not taking new patients. pt is tearful, crying and angry in affect. Patient refuses to allow chaperoned rectal exam. States that the last time rectal exam was completed she was "tore up." Past surgical history is most significant for previous appendectomy about 1 year ago. At the time of my initial evaluation in the room shortly after I introduced myself the patient began yelling at me. She stated she wanted the name of every person working in this emergency department as she plan to report us to the state for ignoring her symptoms. She is particularly interested in the nurse that checked her in initially when she came to the ED. She calls him a "Fu&*^ng [id number]) Review of Systems Constitutional: reports: Fever Eyes: reports: Reviewed and negative Ears: reports: Reviewed and negative Nose: reports: Reviewed and negative Throat: reports: Reviewed and negative Cardiac: reports: Reviewed and negative Respiratory: reports: Reviewed and negative GI: reports: Abdominal Pain, Bloody / black stool. 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, Other : Chronic bladder infection HEENT: None Psych: Depression, Anxiety, Panic attacks, Claustrophobia Musculoskeletal: Fibromyalgia, Other Derm: None - Past Surgical History Past Surgical History: Yes General: Appendectomy Ortho: Arthroscopic surgery HEENT: Other - Present Medications Home Medications: Ambulatory Orders Medication Instructions Recorded Confirmed HYDROcod/ACETAM 5/325 [[place] 5/325] 1 - 2 tab PO Q6H PRN #10 tablet 03/22/21 clindamycin HCL [Cleocin HCl] 300 mg PO QID #28 cap 03/22/21 predniSONE [Deltasone] 60 mg PO DAILY 5 Days #15 tablet 03/22/21 Hyoscyamine [Levsin] 0.125 mg SL AC PRN #20 tablet 05/07/21 Ondansetron Odt [Zofran] 4 mg TL Q6H PRN #10 tablet 05/07/21 - Allergies Allergies/Adverse Reactions: Allergies Allergy/AdvReac Type Severity Reaction Status Date / Time amoxicillin Allergy Unknown Verified 05/07/21 14:11 doxycycline Allergy Unknown Verified 05/07/21 14:11 Penicillins Allergy Rash Verified 05/07/21 14:11 - Social History Does the pt smoke?: No Smoking Status: Never smoker Does the pt drink ETOH?: Yes Does the pt have substance abuse?: No - Immunizations Immunizations are current?: Yes - POLST Patient has POLST: No PD ED PE EXPANDED - General General: Alert, Other (crying, angry) - Cardiac Cardiac: Regular Rate, Radial strong equal, Cap refill < 2 sec - Respiratory Respiratory: Clear to ausultation tatiana. No: Distress, Labored - Abdomen Abdomen: Normal Bowel sounds, LLQ. No: Tender to palpation, Rebound, Guarding - Rectal Rectal: Other (pt refused) - Back Back: Normal exam, CVA TTP left - Derm Derm: Normal color, Warm and dry. No: Rash - Extremities Extremities: Normal. No: Deformity, Tenderness - Neuro Neuro: Alert and Oriented X 3, CNII-XII intact - GCS Eye Opening: Spontaneous Motor: Obeys Commands Verbal: Oriented Total: 15 - Psych Psych: Agitated (very angry affect) Results - Vitals Vitals: Vital Signs - 24 hr 05/07/21 05/07/21 05/07/21 14:11 19:13 20:40 Temperature 36.5 C Heart Rate 90 88 75 Respiratory 16 17 14 Rate Blood Pressure 129/85 H 116/85 H 130/70 O2 Saturation 99 100 100 Oxygen O2 Source Room air - Labs Labs: Laboratory Tests 05/07/21 05/07/21 05/07/21 14:29 14:29 19:08 WBC 7.9 RBC 4.16 L Hgb 13.5 Hct 40.8 MCV 98.1 MCH 32.5 H MCHC 33.1 RDW 12.1 Plt Count 269 MPV 9.6 Neut # (Auto) 4.6 Lymph # (Auto) 2.7 [place] # (Auto) 0.5 Eos # (Auto) 0.1 Baso # (Auto) 0.0 Absolute Nucleated RBC 0.00 Nucleated RBC % 0.0 Sodium 139 Potassium 4.0 Chloride 110 Carbon Dioxide 21 Anion Gap 8.0 BUN 10 Creatinine 1.0 Estimated GFR (MDRD) 67 L Glucose 95 Calcium 9.0 Total Bilirubin 0.7 AST 20 ALT 16 Alkaline Phosphatase 79 Total Protein 7.0 Albumin 4.0 Globulin 3.0 Albumin/Globulin Ratio 1.3 Lipase 24 Urine Color YELLOW Urine Clarity CLEAR Urine pH 6.5 Ur Specific [place] 1.020 Urine Protein NEGATIVE Urine Glucose (UA) NEGATIVE Urine Ketones NEGATIVE Urine Occult Blood NEGATIVE Urine Nitrite NEGATIVE Urine Bilirubin NEGATIVE Urine Urobilinogen 0.2 (NORMAL) Ur Leukocyte Esterase NEGATIVE Ur Microscopic Review NOT INDICATED Urine Culture Comments NOT INDICATED Urine HCG, Qual 05/07/21 19:08 WBC RBC Hgb Hct MCV MCH MCHC RDW Plt Count MPV Neut # (Auto) Lymph # (Auto) [place] # (Auto) Eos # (Auto) Baso # (Auto) Absolute Nucleated RBC Nucleated RBC % Sodium Potassium Chloride Carbon Dioxide Anion Gap BUN Creatinine Estimated GFR (MDRD) Glucose Calcium Total Bilirubin AST ALT Alkaline Phosphatase Total Protein Albumin Globulin Albumin/Globulin Ratio Lipase Urine Color Urine Clarity Urine pH Ur Specific [place] Urine Protein Urine Glucose (UA) Urine Ketones Urine Occult Blood Urine Nitrite Urine Bilirubin Urine Urobilinogen Ur Leukocyte Esterase Ur Microscopic Review Urine Culture Comments Urine HCG, Qual NEGATIVE PD MEDICAL DECISION MAKING - ED course Complexity details: reviewed results, considered differential, d/w patient ED course: 26-year-old female presents to the emergency department for evaluation of chronic abdominal pain with reported bloody stools. She has been seen similarly for this in the past. Reports difficulty establishing with a primary care provider as well as obtaining referral to a GI. On exam she has some left lower abdominal tenderness. She refused the rectal exam. Screening labs were unremarkable showing no anemia or leukocytosis or electrolyte derangement of worry. We did do a CT of the abdomen that showed some inflammation of the left lower colon. Will defer antibiotics given the lack of fever and the duration of symptoms my suspicion for an infectious etiology is rather low. I will prescribe some hyoscamine For abdominal pain and spasm as well as Zofran to help with nausea. I encouraged clear liquid diet over the next 48 hours and slowly advance as tolerated. Emergent worrisome return precautions discussed. Departure - Departure Disposition: 01 Home, Self Care Clinical Impression: Rectal bleeding Abdominal pain Qualifiers: Abdominal location: lower abdomen, unspecified Qualified Code(s): R10.30 - Lower abdominal pain, unspecified Condition: Stable Record reviewed to determine appropriate education?: Yes Follow-Up: Erin Wesley MD [Provider Admit Priv/Credential] - Prescriptions: Hyoscyamine [Levsin] 0.125 mg SL AC PRN #20 tablet PRN Reason: Pain Ondansetron Odt [Zofran] 4 mg TL Q6H PRN #10 tablet PRN Reason: Nausea / Vomiting Comments: You were seen today in the emergency department for left-sided abdominal pain as well as back pain. You also reported bloody stools. Your screening labs today are essentially normal. Your hemoglobin is normal. Your kidney and lumbar liver function are normal. We did do a CT of your abdomen. There is an incidental finding of a liver hemangioma. These are benign cysts that typically do not require follow-up. The CT scan did show some inflammation of the descending colon. In the long- term you will need to be seen by a facilities painter and have a colonoscopy completed. I have referred you to Dr. Langston a surgeon who can do the colonoscopy however the referral may need to come from her primary doctor. It is important that you establish with one as soon as possible. The [facility] in the [facility] is always accepting new patients. Over the next 48 hours I would like you to have a clear liquid diet only and then slowly advance with bananas rice applesauce and toast. I am prescribing hyoscamine medication given to you before that does help with abdominal pain and cramping that we can sometimes see an inflammatory or irritable bowel disorders. I am also prescribing some Zofran to help with nausea. Return to the emergency department for fevers higher than 103, any fainting episodes or uncontrolled vomiting.
[2021-05-07 19:27] LABS: BILIRUBIN,URINE NEGATIVE (NEGATIVE); GLUCOSE, URINE (UA) NEGATIVE (NEGATIVE); KETONES,URINE (UA) NEGATIVE (NEGATIVE); LEUKOCYTE ESTERASE, URINE NEGATIVE (NEGATIVE); NITRITE,URINE NEGATIVE (NEGATIVE); OCCULT BLOOD,URINE NEGATIVE (NEGATIVE); PH,URINE 6.5 PH (5.0-7.5); PROTEIN,URINE NEGATIVE (NEGATIVE); UROBILINOGEN,URINE 0.2 (NORMAL) E.U./dL (NORMAL)
[2021-05-07 19:29] LABS: CLARITY,URINE CLEAR (CLEAR); HCG UR QUAL NEGATIVE
[2021-05-07] MEDS ORDERED: IOPAMIDOL-300 100 ML VIAL ONE (19:49)
[2021-05-07] MEDS ORDERED: IOPAMIDOL-300 100 ML VIAL IVP ONE (20:26)
--- NOTE | 2021-05-07 20:39 | CT Report ---
PROCEDURE: Abdomen/Pelvis W INDICATIONS: abdomianl pain; rectal bleeding CONTRAST: IV CONTRAST: Isovue 300 ml: 100 PO CONTRAST: *NO PO CONTRAST TECHNIQUE: After the administration of IV contrast, 5 mm thick sections acquired from the diaphragms to the symp hysis. 5 mm thick coronal and sagittal reformats were acquired. For radiation dose reduction, the f ollowing was used: automated exposure control, adjustment of mA and/or kV according to patient size. COMPARISON: 04/06/2020 CT examination FINDINGS: Image quality: Excellent. ABDOMEN: Lung bases: Lung bases are clear. Heart size is normal. Solid organs: Liver and spleen are normal in size. There is a 23 mm diameter low-density focus withi n the right hepatic lobe posteriorly with peripheral nodular enhancement, as before. Gallbladder is w ithin normal limits Biliary system is non dilated. Pancreas enhances normally. No adrenal nodules. Kidneys demonstrate normal size and enhancement, without hydronephrosis. Peritoneum and bowel: There is mild thickening of the descending colon. Bowel loops demonstrate othe rwise normal wall thickness and caliber. No free fluid or air. Appendix not seen. No evidence of ap pendicitis. Nodes and vessels: No retroperitoneal or mesenteric adenopathy by size criteria. Aorta and inferior vena cava are normal in size. Miscellaneous: No ventral hernias. PELVIS: Genitourinary: Bladder wall thickness is normal. Miscellaneous: No inguinal hernias or adenopathy. Bones: No suspicious bony lesions. No vertebral body compression fractures. IMPRESSION: 1. Mild thickening of the descending colon, possibly indicating infection, inflammation, or ischemia. 2. Appendix not seen. No evidence of appendicitis. 3. Right hepatic lobe hemangioma. Reviewed by: Pedrito Cerna MD on 05/07/2021 8:38 PM PDT Approved by: Pedrito Cerna MD on 05/07/2021 8:38 PM PDT Station ID: [id number]
[2021-05-07 20:42] VITALS: BP 130/70
== END 2021-05-07 21:18 | disposition home or self-care (01) ==
LOC: ED 14:06
DX: K62.5 Hemorrhage of anus and rectum (principal); R10.32 Left lower quadrant pain; G89.29 Other chronic pain; M54.5 Low back pain; D18.03 Hemangioma of intra-abdominal structures
CPT/HCPCS: 36415; 74177; 80053; 81003; 81025; 83690; 85025; 96374; 96375; 99284; J1170; Q9967; 81001; 87086

== ENCOUNTER 2021-06-03 03:56 | Emergency (ER) | payer OTHER ==
[2021-06-03] MEDS ORDERED: DROPERIDOL 5 MG/2 ML VIAL IVP STA (04:18)
[2021-06-03] MEDS ORDERED: KETOROLAC 30 MG/ML VIAL IVP STA (04:18)
[2021-06-03] MEDS ORDERED: SODIUM CHLORIDE 0.9% 1,000 ML IV STA (04:18)
--- NOTE | 2021-06-03 04:25 | ED Physician Documentation ---
PD HPI CHEST PAIN - Stated complaint Stated Complaint: SOA/N/V/L ARM NUMBNESS - Chief complaint Chief Complaint: Resp - History obtained from History obtained from: Patient - History of Present Illness Timing - onset: How many hours ago (few) Timing - onset during: Rest, Light activity Timing - duration: Hours (rew) Timing - details: Abrupt onset, Still present Quality: Tightness, Aching Location: Left chest Radiation: Left upper extremity (with feeling of numbness/weakness left arm) Improved by: No: Rest Associated symptoms: Shortness of air, Nausea, Vomiting, Feeling faint / dizzy. No: General Weakness, Palpitations, Cough Similar symptoms before: Has not had sx before (she states this feels different than prior abd pain/vomiting episodes.) Recently seen: Clinic (She got her 2nd COVID vaccine yesterday at [facility], injected left deltoid. Has pain and weakness of the arm now. No hives, oral swelling nor wheezing.) Review of Systems Constitutional: reports: Chills, Myalgias (abruptly this evening), Fatigue. denies: Fever Nose: denies: Rhinorrhea / runny nose, Congestion Throat: denies: Sore throat Cardiac: reports: Chest pain / pressure. denies: Palpitations, Pedal edema, Calf pain Respiratory: reports: Cough. denies: Wheezing GI: reports: Abdominal Pain (recurringly over past few months. She states tried to get appt with surgery for scope but provider cancelled and has not rescheduled. Unable to get new PMD appt as "no one is taking new patients". Has continued with abd cramping intermittent/often.), Nausea, Vomiting. 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, Other : Chronic bladder infection HEENT: None Psych: Depression, Anxiety, Panic attacks, Claustrophobia Musculoskeletal: Fibromyalgia, Other Derm: None - Past Surgical History Past Surgical History: Yes General: Appendectomy Ortho: Arthroscopic surgery HEENT: Other - Present Medications Home Medications: Ambulatory Orders Medication Instructions Recorded Confirmed Ondansetron Odt [Zofran] 4 mg TL Q6H PRN #10 tablet 05/07/21 06/03/21 Promethazine [Phenergan] 25 mg PO Q6H PRN #10 tab 06/03/21 dexAMETHasone [Decadron] 4 mg PO DAILY #5 tablet 06/03/21 - Allergies Allergies/Adverse Reactions: Allergies Allergy/AdvReac Type Severity Reaction Status Date / Time amoxicillin Allergy Unknown Verified 06/03/21 04:10 doxycycline Allergy Unknown Verified 06/03/21 04:10 Penicillins Allergy Rash Verified 06/03/21 04:10 - Social History Does the pt smoke?: No Smoking Status: Never smoker Does the pt drink ETOH?: Yes Does the pt have substance abuse?: No - Immunizations Immunizations are current?: Yes - POLST Patient has POLST: No PD ED PE NORMAL - Vitals Vital signs reviewed: Yes (tachycardic) - General General: Alert and oriented X 3, Well developed/nourished, Other (appears uncomfortable due to chest pain, anxious, with tachypnea and tachycardia. ) - HEENT HEENT: Pharynx benign (no edema) - Neck Neck: Supple, no meningeal sign, No adenopathy - Cardiac Cardiac: No: RRR (tachycardic but regular) - Respiratory Respiratory: No respiratory distress, Clear bilaterally, Other (no conversational dyspnea. ) - Abdomen Abdomen: Normal bowel sounds, Soft, Non distended, No organomegaly, Other (mild tenderness mid lower abd without guarding nor percussion tender. ) Results - Vitals Vitals: Vital Signs - 24 hr 06/03/21 06/03/21 06/03/21 04:07 04:14 04:35 Temperature 36.9 C Heart Rate 136 H 118 H 111 H Respiratory 20 20 20 Rate Blood Pressure 124/70 122/91 H O2 Saturation 100 100 100 06/03/21 06/03/21 06/03/21 05:31 05:50 06:17 Temperature Heart Rate 118 H 129 H Respiratory 17 17 17 Rate Blood Pressure O2 Saturation 100 99 98 06/03/21 06:37 Temperature Heart Rate 124 H Respiratory 18 Rate Blood Pressure 108/63 O2 Saturation Oxygen O2 Source Room air - EKG (time done) 04:06 Rate: Rate (enter#) (124) Rhythm: Sinus tachycardia Table [place]: Normal Intervals: Normal [place] QRS: Normal Ischemia: Normal ST segments. No: ST elevation c/w ischemia, ST depression - Labs Labs: Laboratory Tests 06/03/21 06/03/21 06/03/21 05:24 05:24 05:24 WBC 8.4 RBC 4.45 Hgb 14.3 Hct 41.8 MCV 93.9 MCH 32.1 H MCHC 34.2 RDW 11.7 L Plt Count 247 MPV 9.5 Neut # (Auto) 7.8 H Lymph # (Auto) 0.5 L [place] # (Auto) 0.1 Eos # (Auto) 0.0 Baso # (Auto) 0.0 Absolute Nucleated RBC 0.00 Nucleated RBC % 0.0 D-Dimer 225.6 Sodium 137 Potassium 3.6 Chloride 103 Carbon Dioxide 22 Anion Gap 12.0 BUN 12 Creatinine 0.7 Estimated GFR (MDRD) 101 Glucose 106 H Calcium 9.5 Total Bilirubin 0.8 AST 18 ALT 16 Alkaline Phosphatase 89 Troponin I High Sens Total Protein 7.7 Albumin 4.5 Globulin 3.2 Albumin/Globulin Ratio 1.4 Lipase 24 06/03/21 05:24 WBC RBC Hgb Hct MCV MCH MCHC RDW Plt Count MPV Neut # (Auto) Lymph # (Auto) [place] # (Auto) Eos # (Auto) Baso # (Auto) Absolute Nucleated RBC Nucleated RBC % D-Dimer Sodium Potassium Chloride Carbon Dioxide Anion Gap BUN Creatinine Estimated GFR (MDRD) Glucose Calcium Total Bilirubin AST ALT Alkaline Phosphatase Troponin I High Sens < 2.3 L Total Protein Albumin Globulin Albumin/Globulin Ratio Lipase PD MEDICAL DECISION MAKING - ED course Complexity details: reviewed results (tachycardic but ECG without acute findings, CXR clear, Trop and D-dimer normal. Appears side effects of the vaccine yesterday. Can give PO fluids. ), re-evaluated patient (declined IV attempts after 2 tries by nursing. Gave IM meds. This led to less nausea without vomiting, but still nausea. Gave Phenergan IM as well. She declined Toradol and Dilaudid. Remains tachy but no obvious serious process at this time. ), considered differential (seems general symptoms side effects of COVID vaccine yesterday. She is concerned about FH of VTEs. This seems particularly quick for clots as sequelae of the vaccine. H/O asthma but not wheezing. No hives/edema so not seeming allergic reaction per se. ), d/w patient ED course: At time of shift change, patient was less nauseated but still attempting PO challenge. Still some tachycardia, but no serious process identified. Presume some volume depletion but she again declined IV attempt. Will see how she does with fluid intake, and discharge if doing well with that. 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 Rest at home today and tomorrow as needed. Tylenol or Ibuprofen as needed for pains. Promethazine if needed for nausea. You can take Dexamethasone steroid daily for 5 days to help with your ongoing intestinal symptoms. Transmitted scripts to [facility]. Follow up with primary care and surgery for further evaluation of ongoing abdominal symptoms. The current chest discomfort and nausea/vomiting seems side effects to the vaccine you received and should decrease over 1-2 days. Your ECG, Chest xray and blood tests are good. No signs of heart attack/muscle injury, blood clots, fluid in lungs, electrolyte problems. Forms: Activity restrictions
[2021-06-03] MEDS ORDERED: KETOROLAC 30 MG/ML VIAL IM STA (04:38)
[2021-06-03] MEDS ORDERED: DROPERIDOL 5 MG/2 ML VIAL IM STA (04:38)
[2021-06-03] MEDS ORDERED: HYDROmorphone 1 MG/ML CARPUJECT IM STA (04:52)
[2021-06-03 05:32] LABS: BASOPHILS % (AUTO) 0.1 %; HCT - HEMATOCRIT 41.8 % (37.0-47.0); HGB - HEMOGLOBIN 14.3 g/dL (12.0-16.0); LYMPHOCYTES # (AUTO) 0.5 10^3/uL (1.5-3.5); LYMPHOCYTES % (AUTO) 5.6 %; MEAN CORPUSCULAR HEMOGLOBIN 32.1 pg (27.0-31.0); MEAN CORPUSCULAR HGB CONC 34.2 g/dL (32.0-36.0); MEAN CORPUSCULAR VOLUME 93.9 fL (81.0-99.0); MEAN PLATELET VOLUME 9.5 fL (7.9-10.8); MONOCYTES # (AUTO) 0.1 10^3/uL (0.0-1.0); MONOCYTES % (AUTO) 1.2 %; NEUTROPHILS # (AUTO) 7.8 10^3/uL (1.5-6.6); NEUTROPHILS % (AUTO) 92.7 %; PLT - PLATELET COUNT 247 10^3/uL (130-450); RED BLOOD COUNT 4.45 10^6/uL (4.20-5.40); RED CELL DISTRIBUTION WIDTH 11.7 % (12.0-15.0); WHITE BLOOD COUNT 8.4 x10^3/uL (4.8-10.8)
[2021-06-03 05:44] LABS: ALBUMIN 4.5 g/dL (3.2-5.5); ALBUMIN/GLOBULIN RATIO 1.4 (1.0-2.2); BILIRUBIN,TOTAL 0.8 mg/dL (0.2-1.0); CALCIUM 9.5 mg/dL (8.5-10.3); CREATININE 0.7 mg/dL (0.4-1.0); POTASSIUM 3.6 mmol/L (3.5-5.0); TOTAL PROTEIN 7.7 g/dL (6.7-8.2)
[2021-06-03] MEDS ORDERED: PROMETHAZINE 25 MG/1 ML VIAL IM STA (06:02)
--- NOTE | 2021-06-03 08:03 | XRAY Report ---
PROCEDURE: Chest 1 View X-Ray INDICATIONS: Chest Pain TECHNIQUE: One view of the chest was acquired. COMPARISON: 2020 FINDINGS: Surgical changes and devices: None. Lungs and pleura: No pleural effusions or pneumothorax. Lungs are clear. Mediastinum: Mediastinal contours appear normal. Heart size is normal. Bones and chest wall: No suspicious bony lesions. Overlying soft tissues appear unremarkable. IMPRESSION: No acute cardiopulmonary abnormality. Reviewed by: Fernando Hawthorne MD on 06/03/2021 8:02 AM PDT Approved by: Fernando Hawthorne MD on 06/03/2021 8:02 AM PDT Station ID: [id number]
[2021-06-03 10:11] VITALS: BP 113/67
== END 2021-06-03 12:12 | disposition home or self-care (01) ==
LOC: ED 03:56
DX: R11.2 Nausea with vomiting, unspecified (principal); R00.0 Tachycardia, unspecified; T50.905A Adverse effect of unspecified drugs, medicaments and biological substances, initial encounter
CPT/HCPCS: 36415; 80053; 83690; 84484; 85025; 85379; 93005; 96372; 99284

== ENCOUNTER 2021-08-05 21:33 | Emergency (ER) | payer OTHER ==
[2021-08-05 21:41] VITALS: BP 135/83
--- NOTE | 2021-08-05 22:08 | ED Physician Documentation ---
PD HPI ABD PAIN - Stated complaint Stated Complaint: ABD PX - Chief complaint Chief Complaint: Abd Pain - History obtained from History obtained from: Patient - History of Present Illness Timing - onset: How many days ago (6) Timing - details: Gradual onset, Waxing and waning Pain level now: 9 Quality: Pain Location: RLQ, Suprapubic Improved by: Other (nothing) Worsened by: Palpation Associated symptoms: Nausea, Diarrhea, Constipation, Hematochezia (ongoing problem (not new)). No: Fever, Vomiting - Additional information Additional information: c/o pain across lower abdomen, predominantly suprapubic and RLQ, since osteopathic manipulative treatment on her abdominal muscles last week. She was prescribed topical diclofenac but had no relief with this. Patient says she contacted her primary care provider who had performed the treatment and was told to come to the emergency department for evaluation. Review of Systems Constitutional: denies: Fever Cardiac: reports: Reviewed and negative Respiratory: reports: Reviewed and negative GI: reports: Abdominal Pain, Nausea, Constipation, Diarrhea, Bloody / black stool (ongoing (not new)), Other (patient says she either has diarrhea or constipation with all bowel movements, and that this is also not a new problem). 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, Other : Chronic bladder infection HEENT: None Psych: Depression, Anxiety, Panic attacks, Claustrophobia Musculoskeletal: Fibromyalgia, Other Derm: None - Past Surgical History Past Surgical History: Yes General: Appendectomy Ortho: Arthroscopic surgery HEENT: Other - Present Medications Home Medications: Ambulatory Orders Medication Instructions Recorded Confirmed Ondansetron Odt [Zofran] 4 mg TL Q6H PRN #10 tablet 05/07/21 06/03/21 Promethazine [Phenergan] 25 mg PO Q6H PRN #10 tab 06/03/21 dexAMETHasone [Decadron] 4 mg PO DAILY #5 tablet 06/03/21 HYDROcod/ACETAM 5/325 [[place] 5/325] 1 - 2 tablet PO Q6H PRN #14 tablet 08/06/21 Ondansetron Odt [Zofran] 4 mg TL Q6H PRN #10 tablet 08/06/21 - Allergies Allergies/Adverse Reactions: Allergies Allergy/AdvReac Type Severity Reaction Status Date / Time amoxicillin Allergy Unknown Verified 08/05/21 21:37 doxycycline Allergy Unknown Verified 08/05/21 21:37 Penicillins Allergy Rash Verified 08/05/21 21:37 - Social History Does the pt smoke?: No Smoking Status: Never smoker Does the pt drink ETOH?: Yes Does the pt have substance abuse?: No - Immunizations Immunizations are current?: Yes - POLST Patient has POLST: No PD ED PE NORMAL - Vitals Vital signs reviewed: Yes - General General: Alert and oriented X 3, No acute distress, Well developed/nourished - Cardiac Cardiac: RRR, No murmur - Respiratory Respiratory: No respiratory distress, Clear bilaterally - Abdomen Abdomen: Soft, Non distended, Other (mild TTP right anterior hemipelvis and suprapubic region) - Back Back: No CVA TTP Results - Vitals Vitals: Oxygen O2 Source Room air - Labs Labs: Laboratory Tests 08/05/21 08/05/21 08/05/21 21:35 21:35 22:12 WBC 8.8 RBC 4.51 Hgb 14.5 Hct 41.0 MCV 90.9 MCH 32.2 H MCHC 35.4 RDW 12.3 Plt Count 351 MPV 9.0 Neut # (Auto) 5.5 Lymph # (Auto) 2.7 [place] # (Auto) 0.4 Eos # (Auto) 0.1 Baso # (Auto) 0.0 Absolute Nucleated RBC 0.00 Nucleated RBC % 0.0 Sodium Potassium Chloride Carbon Dioxide Anion Gap BUN Creatinine Estimated GFR (MDRD) Glucose Calcium Total Bilirubin AST ALT Alkaline Phosphatase Total Protein Albumin Globulin Albumin/Globulin Ratio Lipase Urine Color YELLOW Urine Clarity CLEAR Urine pH 6.0 Ur Specific [place] <=1.005 Urine Protein NEGATIVE Urine Glucose (UA) NEGATIVE Urine Ketones NEGATIVE Urine Occult Blood TRACE-INTA Urine Nitrite NEGATIVE Urine Bilirubin NEGATIVE Urine Urobilinogen 0.2 (NORMAL) Ur Leukocyte Esterase NEGATIVE Ur Microscopic Review NOT INDICATED Urine Culture Comments NOT INDICATED Urine HCG, Qual NEGATIVE 08/05/21 22:12 WBC RBC Hgb Hct MCV MCH MCHC RDW Plt Count MPV Neut # (Auto) Lymph # (Auto) [place] # (Auto) Eos # (Auto) Baso # (Auto) Absolute Nucleated RBC Nucleated RBC % Sodium 138 Potassium 3.5 Chloride 106 Carbon Dioxide 24 Anion Gap 8.0 BUN 9 Creatinine 0.7 Estimated GFR (MDRD) 101 Glucose 117 H Calcium 9.3 Total Bilirubin 0.7 AST 17 ALT 15 Alkaline Phosphatase 69 Total Protein 7.5 Albumin 4.2 Globulin 3.3 Albumin/Globulin Ratio 1.3 Lipase 25 Urine Color Urine Clarity Urine pH Ur Specific [place] Urine Protein Urine Glucose (UA) Urine Ketones Urine Occult Blood Urine Nitrite Urine Bilirubin Urine Urobilinogen Ur Leukocyte Esterase Ur Microscopic Review Urine Culture Comments Urine HCG, Qual - Rads (name of study) pelvic US Radiology: Prelim report reviewed, See rad report PD MEDICAL DECISION MAKING - ED course ED course: Unremarkable blood work, UA. Negative urine test. Pelvic US only notable for small, simple right ovarian cyst. Results reviewed with patient. I explained that ovarian cysts can cause pain, and while this is a possible etiology for her discomfort, but there would be no specific treatment at this time and that there are no findings that demonstrate an emergent etiology for her symptoms. I am prescribing a short course of short-acting opioid pain medication for this patient. 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 I have discussed that the opioids are for short term therapy only, and will not be refilled from the ED. Departure - Departure Disposition: 01 Home, Self Care Clinical Impression: Abdominal pain Qualifiers: Abdominal location: lower abdomen, unspecified Qualified Code(s): R10.30 - Lower abdominal pain, unspecified Cyst of ovary Qualifiers: Laterality: right Qualified Code(s): N83.201 - Unspecified ovarian cyst, right side Condition: Good Instructions: ED Abdominal Pain Female Non-Specific Abdominal Pain, ED Cyst Ovarian, ED Pelvic Pain [facility] Prescriptions: HYDROcod/ACETAM 5/325 [[place] 5/325] 1 - 2 tablet PO Q6H PRN #14 tablet PRN Reason: Pain Ondansetron Odt [Zofran] 4 mg TL Q6H PRN #10 tablet PRN Reason: Nausea / Vomiting Comments: The cause of your abdominal/pelvic pain is unclear at this time. The ultrasound shows a right ovarian cyst, and this might be causing the discomfort. However, as we discussed, it is small and there is no evidence of rupture or torsion (twisted ovary, which causes severe pain), and so I suspect the cyst might be an incidental finding and not causing symptoms. Your blood tests and urinalysis are reassuring, without any significant abnormality. Follow up with your primary care provider for reevaluation, 3-5 days if symptoms do not resolve. Prescriptions for ondansetron (anti-nausea medication) and hydr ocodone/acetminophen (vicodin, opioid pain medication) have been electronically submitted to [facility] pharmacy in [place] I am prescribing a short course of narcotic pain medication for you. These are potentially dangerous and addictive medications that should be used carefully. These medications may constipate you. Take an idqy-hja-zmnrxmi stool softener (docusate) twice daily with plenty of water while taking these medications. If you go 24 hours without a bowel movement, take vbrl-cfy-cxzelcx miralax, per package instructions. Do not drink or drive while taking these medications. If you received narcotic or sedating medications while in the emergency department, do not drive for 24 hours. Store this medication in a safe, secure place and out of reach of children. It is a violation of federal law to give or sell this medication to another person or to use in a manner other than prescribed. The ED will not refill narcotic prescriptions, including prescriptions lost or stolen. To dispose of unwanted medications: 1. [facility] at [address] in [place] has a medication drop box. They accept prescription medications (in pill form) Monday through Monday 9:00 a.m. to 5:00 p.m. 2. The [facility] accepts prescription medications (in pill form only) for disposal year round. Call for more information. 3. Contact the [facility] for the next [facility] sponsored prescription drug collection event. , [phone], or [phone]; Discharge Date/Time: 08/06/21 00:30
[2021-08-05 22:16] LABS: BASOPHILS % (AUTO) 0.3 %; EOSINOPHILS # (AUTO) 0.1 10^3/uL (0.0-0.7); EOSINOPHILS % (AUTO) 1.1 %; HGB - HEMOGLOBIN 14.5 g/dL (12.0-16.0); LYMPHOCYTES # (AUTO) 2.7 10^3/uL (1.5-3.5); LYMPHOCYTES % (AUTO) 30.9 %; MEAN CORPUSCULAR HEMOGLOBIN 32.2 pg (27.0-31.0); MEAN CORPUSCULAR HGB CONC 35.4 g/dL (32.0-36.0); MEAN CORPUSCULAR VOLUME 90.9 fL (81.0-99.0); MONOCYTES # (AUTO) 0.4 10^3/uL (0.0-1.0); MONOCYTES % (AUTO) 4.3 %; NEUTROPHILS # (AUTO) 5.5 10^3/uL (1.5-6.6); NEUTROPHILS % (AUTO) 63.1 %; PLT - PLATELET COUNT 351 10^3/uL (130-450); RED BLOOD COUNT 4.51 10^6/uL (4.20-5.40); RED CELL DISTRIBUTION WIDTH 12.3 % (12.0-15.0); WHITE BLOOD COUNT 8.8 x10^3/uL (4.8-10.8)
[2021-08-05 22:18] LABS: BILIRUBIN,URINE NEGATIVE (NEGATIVE); CLARITY,URINE CLEAR (CLEAR); GLUCOSE, URINE (UA) NEGATIVE (NEGATIVE); KETONES,URINE (UA) NEGATIVE (NEGATIVE); LEUKOCYTE ESTERASE, URINE NEGATIVE (NEGATIVE); NITRITE,URINE NEGATIVE (NEGATIVE); OCCULT BLOOD,URINE TRACE-INTA (NEGATIVE); PROTEIN,URINE NEGATIVE (NEGATIVE); UROBILINOGEN,URINE 0.2 (NORMAL) E.U./dL (NORMAL)
[2021-08-05 22:19] LABS: HCG UR QUAL NEGATIVE
[2021-08-05] MEDS ORDERED: HYDROcod/ACETAM 5/325 MG TABLET PO STA (22:29)
[2021-08-05] MEDS ORDERED: ONDANSETRON ODT 4 MG TABLET TL STA (22:29)
[2021-08-05 22:30] LABS: ALBUMIN 4.2 g/dL (3.2-5.5); ALBUMIN/GLOBULIN RATIO 1.3 (1.0-2.2); BILIRUBIN,TOTAL 0.7 mg/dL (0.2-1.0); CALCIUM 9.3 mg/dL (8.5-10.3); CREATININE 0.7 mg/dL (0.4-1.0); POTASSIUM 3.5 mmol/L (3.5-5.0); TOTAL PROTEIN 7.5 g/dL (6.7-8.2)
--- NOTE | 2021-08-05 23:57 | Ultrasound Report ---
PROCEDURE: Pelvic w/Transvag+Doppler Comp INDICATIONS: suprapubic/right pelvic pain,tenderness TECHNIQUE: Real-time scanning was performed of the pelvic organs, with image documentation. Additional endovagi nal scanning was necessary due to incomplete visualization of the adnexal and endometrial structures by transabdominal scanning. COMPARISON: None. FINDINGS: No pathologic free abdominal or pelvic fluid. Uterus: Anteverted uterus is normal in size at 7.1 x 4.3 x 3.2 cm. The myometrium is mildly heterogen eous. The endometrium measures 5.7 mm in combined thickness. No endometrial mass or fluid is seen. No discrete uterine fibroid. Nabothian cysts are noted within endocervical canal. Ovaries: Right ovary measures 4 x 2.7 x 2.7 cm in size. 3.2 x 2.2 x 2.4 cm simple cyst is seen in ri ght ovary. Left ovary measures 2.1 x 2.1 x 1.4 cm in size and is within normal limits. Normal arteria l and venous flow is seen in bilateral ovaries on color Doppler images. IMPRESSION: 1. Normal-appearing uterus and endometrium. 2. Simple cyst is seen in right ovary. No solid-appearing ovarian lesion. No evidence of ovarian tors ion. Reviewed by: Víctor Bender MD on 08/05/2021 11:55 PM PST Approved by: Víctor Bender MD on 08/05/2021 11:55 PM PST Station ID: [id number]
== END 2021-08-06 00:30 | disposition home or self-care (01) ==
LOC: ED 21:33
DX: N83.201 Unspecified ovarian cyst, right side (principal)
CPT/HCPCS: 36415; 76830; 76856; 80053; 81003; 81025; 83690; 85025; 93975; 99284; A9270; Q0162; 81001; 87086

== ENCOUNTER 2021-09-02 11:42 | Emergency (ER) | payer OTHER ==
--- NOTE | 2021-09-02 12:32 | ED Physician Documentation ---
PD HPI NECK PAIN - Stated complaint Stated Complaint: NECK PX - Chief complaint Chief Complaint: General - History obtained from History obtained from: Patient - History of Present Illness Timing - onset: How many days ago (4) Timing - duration: Days (4) Timing - details: Abrupt onset (noted upon awakening 4 days ago and has persisted with ROM of the neck.) Quality: Pain, Spasm, Aching Associated symptoms: No: Fever, Weakness, Numbness (no new numbness - she states has had left hand ulnar side numbness being evaluated by PMD, consider peripheral nerve, but not related to current neck pain.) Improves with: Rest. No: Meds Worsened by: Movement Contributing factors: No: Lifting, Twisting, Trauma Similar symptoms before: Has not had sx before Recently seen: Not recently seen Review of Systems Constitutional: denies: Fever, Chills Nose: denies: Rhinorrhea / runny nose, Congestion Throat: denies: Sore throat Respiratory: denies: Cough Skin: denies: Rash, Lesions Musculoskeletal: reports: Neck pain (both sides muscular area. No midline tender.). 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, Other : Chronic bladder infection HEENT: None Psych: Depression, Anxiety, Panic attacks, Claustrophobia Musculoskeletal: Fibromyalgia, Other Derm: None - Past Surgical History Past Surgical History: Yes General: Appendectomy Ortho: Arthroscopic surgery HEENT: Other - Present Medications Home Medications: Ambulatory Orders Medication Instructions Recorded Confirmed Ondansetron Odt [Zofran] 4 mg TL Q6H PRN #10 tablet 05/07/21 06/03/21 Promethazine [Phenergan] 25 mg PO Q6H PRN #10 tab 06/03/21 dexAMETHasone [Decadron] 4 mg PO DAILY #5 tablet 06/03/21 HYDROcod/ACETAM 5/325 [[place] 5/325] 1 - 2 tablet PO Q6H PRN #14 tablet 08/06/21 Ondansetron Odt [Zofran] 4 mg TL Q6H PRN #10 tablet 08/06/21 Acetaminophen [Acetaminophen Extra 500 mg PO QID PRN #50 tablet 01/06/22 Strength] Meloxicam [Mobic] 7.5 mg PO BID 10 Days #20 tablet 09/02/21 oxyCODONE [Roxicodone] 5 mg PO Q6H PRN #15 tablet 09/02/21 tiZANidine [Zanaflex] 4 mg PO Q8H PRN #25 tablet 09/02/21 - Allergies Allergies/Adverse Reactions: Allergies Allergy/AdvReac Type Severity Reaction Status Date / Time amoxicillin Allergy Unknown Verified 08/05/21 21:37 doxycycline Allergy Unknown Verified 08/05/21 21:37 Penicillins Allergy Rash Verified 08/05/21 21:37 - Social History Does the pt smoke?: No Smoking Status: Never smoker Does the pt drink ETOH?: Yes Does the pt have substance abuse?: No - Immunizations Immunizations are current?: Yes - POLST Patient has POLST: No PD ED PE NORMAL - Vitals Vital signs reviewed: Yes - General General: Alert and oriented X 3, Well developed/nourished, Other (stiff neck position. Diminished ROM. ) - HEENT HEENT: Atraumatic - Neck Neck: No bony TTP, Other (neck tender bilateral trapezius muscles, focally at insertion occiput but also down to mid scapular area. No rash/redness. ) - Cardiac Cardiac: RRR, No murmur - Respiratory Respiratory: Clear bilaterally - Back Back: No spinal TTP - Derm Derm: Normal color, Warm and dry, No rash - Neuro Neuro: Alert and oriented X 3, No motor deficit, Normal speech Results - Vitals Vitals: Vital Signs - 24 hr 09/02/21 09/02/21 09/02/21 11:47 12:43 13:38 Temperature 36.5 C 36.6 C 37 C Heart Rate 120 H 118 H 110 H Respiratory 16 18 18 Rate Blood Pressure 128/71 120/72 O2 Saturation 98 100 100 Oxygen O2 Source Room air PD MEDICAL DECISION MAKING - ED course Complexity details: reviewed old records (View of her it he showed she had gone approximately 5 months without a narcotic prescription. Otherwise intermittent variable pain conditions.), considered differential (onset upon awakening of neck muscle pain, worse with moving. No noted injury per se. No new UE weakness/numbness (prior left hand humbness being eval by PMD, possible peripheral nerve process, per pt)), d/w patient ED course: nontraumatic neck muscle pain. She declines trigger point injections at neck. Can give meds short term. DId review NAYELI/prior visits. Intended short term use for acute pain process. Departure - Departure Disposition: 01 Home, Self Care Clinical Impression: Acute strain of neck muscle Qualifiers: Encounter type: initial encounter Qualified Code(s): S16.1XXA - Strain of muscle, fascia and tendon at neck level, initial encounter Condition: Stable Record reviewed to determine appropriate education?: Yes Instructions: ED Sprain Strain Neck Prescriptions: Acetaminophen [Acetaminophen Extra Strength] 500 mg PO QID PRN #50 tablet PRN Reason: Pain Meloxicam [Mobic] 7.5 mg PO BID 10 Days #20 tablet oxyCODONE [Roxicodone] 5 mg PO Q6H PRN #15 tablet PRN Reason: Pain tiZANidine [Zanaflex] 4 mg PO Q8H PRN #25 tablet PRN Reason: Spasms Comments: Heat and gentle stretching for the neck to reduce spasm and stiffness. Physical modalities such as massage and chiropractic may be useful for your neck pain. We would usually consider the combination of an anti-inflammatory with muscle relaxant and pain medicine for an episode like this. I sent prescriptions for meloxicam and tizanidine to the pharmacy. To that add Tylenol 500 mg 4 times a day regularly for pain in the short-term. If needed beyond that, add oxycodone every 6 hours if needed. This would be intended for just the first couple of days. Recheck if not improving well over the next few days. I am prescribing a short course of narcotic pain medication for you. These are potentially dangerous and addictive medications that should be used carefully. These medications may constipate you. Take an obdh-roy-lvpsbrf stool softener such as docusate twice daily with plenty of water while taking these medications. If you go 24 hours without a bowel movement, take invu-cdh-audbfln MiraLAX, per package instructions. Do not drink or drive while taking these medications. If you received narcotic or sedating medications while in the emergency department do not drive for 24 hours. Store this medication in a safe, secure place and out of reach of children. It is a violation of federal law to give or sell this medication to another person or to use in a manner other than prescribed. The ED will not refill narcotic prescriptions, including prescriptions lost or stolen. You can dispose of unwanted medications at the [facility]'s office or at several pharmacies such as [facility]. Discharge Date/Time: 09/02/21 13:39
[2021-09-02 12:45] VITALS: BP 120/72
[2021-09-02] MEDS ORDERED: methocarbamoL 500 MG TABLET PO STA (13:10)
[2021-09-02] MEDS ORDERED: oxyCODONE 5 MG TABLET PO STA (13:10)
[2021-09-02] MEDS ORDERED: ACETAMINOPHEN 325 MG TABLET PO STA (13:10)
[2021-09-02] MEDS ORDERED: NAPROXEN 250 MG TABLET PO STA (13:10)
== END 2021-09-02 13:39 | disposition home or self-care (01) ==
LOC: ED 11:42
DX: S16.1XXA Strain of muscle, fascia and tendon at neck level, initial encounter (principal); X58.XXXA Exposure to other specified factors, initial encounter
CPT/HCPCS: 99283; 99284; A9270

== ENCOUNTER 2021-11-03 21:13 | Emergency (ER) | payer OTHER ==
--- OUTSIDE RECORDS SUMMARY | 2021-11-03 21:46 | EXTERNAL MEDICAL SUMMARY RPT | Continuity of Care Document ---
:1995 Author Organization [facility] Address [address] [place] [address] Phone Care Team Providers Name Role Phone Fly Unavailable Unavailable Allergies No information. Encounters No information. Medications No information. Problems date description facility [id number] Contact with and (suspected) exposure t o [address] Results No information.
[2021-11-03] MEDS ORDERED: KETOROLAC 10 MG TABLET PO STA (23:28)
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
[2021-11-03 23:59] VITALS: BP 123/79
== END 2021-11-03 23:59 | disposition home or self-care (01) ==
LOC: ED 21:13
DX: M25.512 Pain in left shoulder (principal); M79.7 Fibromyalgia
CPT/HCPCS: 99282; A9270

== ENCOUNTER 2021-12-15 15:52 | Emergency (ER) | payer OTHER ==
[2021-12-15] MEDS ORDERED: LORazepam 2 MG/ML VIAL IVP STA ×2 (16:07→18:48)
--- NOTE | 2021-12-15 16:08 | ED Physician Documentation ---
History of Present Illness - Stated complaint Stated Complaint: post surgery-dizziness,soa - Chief complaint Chief Complaint: General - History obtained from History obtained from: Patient - Additonal information Additional information: 26-year-old woman with anxiety, fibromyalgia, asthma, remote appendectomy had upper and lower endoscopies yesterday. She felt kind of off yesterday after the procedure but worse today. The prominent symptom is vertigo, spinning dizziness when she turns her head especially. She also feels shaky, sweaty, anxious, short of breath, some upper abdominal pain. Review of Systems Ten Systems: 10 systems reviewed and negative Constitutional: reports: Sweats. denies: Fever, Chills Nose: denies: Rhinorrhea / runny nose, Congestion Cardiac: denies: Chest pain / pressure, Palpitations Respiratory: reports: Dyspnea. 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, Other : Chronic bladder infection HEENT: None Psych: Depression, Anxiety, Panic attacks, Claustrophobia Musculoskeletal: Fibromyalgia, Other Derm: None - Past Surgical History Past Surgical History: Yes General: Appendectomy Ortho: Arthroscopic surgery HEENT: Other - Present Medications Home Medications: Ambulatory Orders Medication Instructions Recorded Confirmed DULoxetine [Cymbalta] 30 mg PO DAILY 11/03/21 11/03/21 Ketorolac [Toradol] 10 mg PO Q6H PRN #30 tablet 11/03/21 Omeprazole 40 mg PO DAILY 11/03/21 11/03/21 LORazepam [Ativan] 1 mg PO TID PRN #6 tablet 12/15/21 Metoclopramide [Reglan] 10 mg PO Q6H PRN #10 tablet 12/15/21 - Allergies Allergies/Adverse Reactions: Allergies Allergy/AdvReac Type Severity Reaction Status Date / Time amoxicillin Allergy Unknown Verified 12/15/21 15:59 doxycycline Allergy Unknown Verified 12/15/21 15:59 lidocaine Allergy Edema Verified 12/15/21 15:59 Penicillins Allergy Rash Verified 12/15/21 15:59 - Social History Does the pt smoke?: No Smoking Status: Never smoker Does the pt drink ETOH?: Yes Does the pt have substance abuse?: No - Immunizations Immunizations are current?: Yes - POLST Patient has POLST: No PD ED PE NORMAL - Vitals Vital signs reviewed: Yes - General General: Alert and oriented X 3 (She appears visibly anxious and shaky) - HEENT HEENT: PERRL, EOMI (Without nystagmus) - Neck Neck: Supple, no meningeal sign, No bony TTP - Cardiac Cardiac: RRR, No murmur - Respiratory Respiratory: No respiratory distress, Clear bilaterally - Abdomen Abdomen: Normal bowel sounds, Soft, Non tender - Back Back: No CVA TTP, No spinal TTP - Derm Derm: Normal color, Warm and dry - Extremities Extremities: No edema, No calf tenderness / cord - Neuro Neuro: Alert and oriented X 3, Normal speech Results - Vitals Vitals: Vital Signs - 24 hr 12/15/21 12/15/21 12/15/21 15:55 16:19 16:35 Temperature 37.0 C Heart Rate 94 90 87 Respiratory 16 22 20 Rate Blood Pressure 115/87 H 103/79 O2 Saturation 99 99 99 12/15/21 12/15/21 12/15/21 16:59 17:56 18:14 Temperature Heart Rate 111 H 85 80 Respiratory 22 16 Rate Blood Pressure 103/79 O2 Saturation 100 100 99 Oxygen O2 Source Room air - Labs Labs: Laboratory Tests 12/15/21 12/15/21 12/15/21 16:15 16:15 16:15 WBC 8.3 RBC 4.48 Hgb 14.5 Hct 41.6 MCV 92.9 MCH 32.4 H MCHC 34.9 RDW 12.2 Plt Count 326 MPV 9.1 Neut # (Auto) 5.3 Lymph # (Auto) 2.5 [place] # (Auto) 0.4 Eos # (Auto) 0.1 Baso # (Auto) 0.0 Absolute Nucleated RBC 0.00 Nucleated RBC % 0.0 VBG pH 7.383 VBG pCO2 39.8 L VBG pO2 32.4 VBG HCO3 23.2 VBG Total CO2 24.4 VBG O2 Saturation 68.1 VBG Base Excess -1.7 Sodium 138 Potassium 3.7 Chloride 105 Carbon Dioxide 23 Anion Gap 10.0 BUN 13 Creatinine 0.6 Estimated GFR (MDRD) 121 Glucose 99 Calcium 9.1 Total Bilirubin 0.7 AST 17 ALT 14 Alkaline Phosphatase 67 Total Protein 7.5 Albumin 4.1 Globulin 3.4 Albumin/Globulin Ratio 1.2 Lipase 24 PD MEDICAL DECISION MAKING - ED course ED course: 26-year-old woman with upper and lower endoscopies yesterday now presents with vertigo, diffuse shaking, abdominal pain and dyspnea. The differential diagn osis is broad, and includes such etiologies as pulmonary embolism, perforation, medication side effects. Thorough diagnostics were done without pertinent positive findings and as such I suspect it is related to the anesthetic, but she was given close return precautions. She did improve with Ativan and Reglan IV here. Departure - Departure Disposition: 01 Home, Self Care Clinical Impression: Abdominal pain, Vertigo, Dyspnea Condition: Stable Record reviewed to determine appropriate education?: Yes Instructions: ED Vertigo Unspecified Prescriptions: LORazepam [Ativan] 1 mg PO TID PRN #6 tablet PRN Reason: Anxiety Metoclopramide [Reglan] 10 mg PO Q6H PRN #10 tablet PRN Reason: nausea or headache Comments: I sent your prescription to [facility] in [place]. As discussed, all your diagnostic tests are basically normal, specifically we did blood work to check for electrolyte abnormalities, blood counts, etc. We also did a CAT scan of your head, chest make sure you did not have a blood clot in your lungs, and abdomen to make sure there was not a perforation or other surgical complications. There was not. Call your doctor to arrange a follow-up appointment, make the next available appointment. In the interim, return anytime if worse or if new symptoms develop. I am prescribing a short course of narcotic pain medication for you. These are potentially dangerous and addictive medications that should be used carefully. These medications may constipate you. Take an ujco-ahk-okchpkn stool softener (docusate) twice daily with plenty of water while taking these medications. If you go 24 hours without a bowel movement, take boxb-ybz-vhmashc miralax, per package instructions. Do not drink or drive while taking these medications. If you received narcotic or sedating medications while in the emergency department, do not drive for 24 hours. Store this medication in a safe, secure place and out of reach of children. It is a violation of federal law to give or sell this medication to another person or to use in a manner other than prescribed. The ED will not refill narcotic prescriptions, including prescriptions lost or stolen. To dispose of unwanted medications: 1. [facility] at [address] in [place] has a medication drop box. They accept prescription medications (in pill form) Monday through Monday 9:00 a.m. to 5:00 p.m. 2. The [facility] Department accepts prescription medications (in pill form only) for disposal year round. Call for more information. 3. Contact the [facility] for the next [facility] sponsored prescription drug collection event. , [phone], or [phone]; Note that many narcotic pain relievers also contain Tylenol/acetaminophen. Please ensure that your total dose of acetaminophen from all sources does not exceed 3 g (3000 mg) per day.
[2021-12-15 16:24] LABS: HCT - HEMATOCRIT 41.6 % (37.0-47.0); HGB - HEMOGLOBIN 14.5 g/dL (12.0-16.0); MEAN CORPUSCULAR HEMOGLOBIN 32.4 pg (27.0-31.0); MEAN CORPUSCULAR HGB CONC 34.9 g/dL (32.0-36.0); MEAN CORPUSCULAR VOLUME 92.9 fL (81.0-99.0); MEAN PLATELET VOLUME 9.1 fL (7.9-10.8); PLT - PLATELET COUNT 326 10^3/uL (130-450); RED BLOOD COUNT 4.48 10^6/uL (4.20-5.40); RED CELL DISTRIBUTION WIDTH 12.2 % (12.0-15.0); WHITE BLOOD COUNT 8.3 x10^3/uL (4.8-10.8)
--- OUTSIDE RECORDS SUMMARY | 2021-12-15 16:24 | EXTERNAL MEDICAL SUMMARY RPT | Continuity of Care Document ---
:1995 Author Organization [place] Address [address] [place] [address] Phone Care Team Providers Name Role Phone Rolando, Fide Unavailable Unavailable Allergies No information. Encounters No information. Medications No information. Problems date description facility [id number] [facility] Procedures date description facility [id number] [facility] Results No information. Vital Signs date measurement value source 20211115 weight_standard 75.3 lb 20211115 weight_metric 34.15 kg 20211115 temperature_standard 98 F 20211115 temperature_metric 36.67 C 20211115 respiration_rate 24 /min 20211115 height_standard 62 in 20211115 height_metric 157.48 cm 20211115 heart_rate 91 /min 20211115 BP_systolic 125 mm[Hg] 20211115 BP_diastolic 74 mm[Hg] 20211115 BMI 30.3 kg/m2
[2021-12-15 16:25] LABS: BASOPHILS % (AUTO) 0.2 %; EOSINOPHILS # (AUTO) 0.1 10^3/uL (0.0-0.7); EOSINOPHILS % (AUTO) 0.6 %; LYMPHOCYTES # (AUTO) 2.5 10^3/uL (1.5-3.5); LYMPHOCYTES % (AUTO) 30.7 %; MONOCYTES # (AUTO) 0.4 10^3/uL (0.0-1.0); MONOCYTES % (AUTO) 4.2 %; NEUTROPHILS # (AUTO) 5.3 10^3/uL (1.5-6.6); NEUTROPHILS % (AUTO) 64.1 %; VBG BASE EXCESS -1.7 mmol/L (-2 - +2); VBG HCO3 23.2 mmol/L (23-28); VBG OXYGEN SATURATION 68.1 % (60-80); VBG PCO2 39.8 mmHg (41-51); VBG PH 7.383 (7.31-7.41); VBG PO2 32.4 mmHg (25-47); VBG TOTAL CO2 24.4 mmol/L (24-29)
[2021-12-15] MEDS ORDERED: SODIUM CHLORIDE 0.9% 1,000 ML IV STA (16:35)
[2021-12-15] MEDS ORDERED: METOCLOPRAMIDE 10 MG/2 ML VIAL IVP STA (16:46)
[2021-12-15] MEDS ORDERED: IOVERSOL 320 100 ML VIAL IVP ONE ×2 (16:59→19:14)
[2021-12-15 17:02] LABS: CALCIUM 9.1 mg/dL (8.5-10.3); CREATININE 0.6 mg/dL (0.4-1.0); POTASSIUM 3.7 mmol/L (3.5-5.0)
[2021-12-15 17:03] LABS: ALBUMIN 4.1 g/dL (3.2-5.5); ALBUMIN/GLOBULIN RATIO 1.2 (1.0-2.2); BILIRUBIN,TOTAL 0.7 mg/dL (0.2-1.0); TOTAL PROTEIN 7.5 g/dL (6.7-8.2)
--- NOTE | 2021-12-15 18:01 | CT Report ---
PROCEDURE: HEAD WO INDICATIONS: vertigo TECHNIQUE: Noncontrast 4.5 mm thick angled axial sections acquired from the foramen magnum to the vertex. For r adiation dose reduction, the following was used: automated exposure control, adjustment of mA and/or kV according to patient size. COMPARISON: Correlation is made with prior orbits CT, 03/22/2021. FINDINGS: Image quality: Motion artifact is noted. Images were repeated, with some improvement. CSF spaces: Basal cisterns are patent. No extra-axial fluid collections. Ventricles are normal in size and shape. Brain: No midline shift. No intracranial masses or hemorrhage. Witt-white matter interface is norm al. Skull and face: Calvarium and visualized facial bones are intact, without suspicious lesions. Sinuses: Visualized sinuses and mastoids are clear. No definite middle ear fluid can be seen. IMPRESSION: A cause of vertigo is not seen, to the limits of this noncontrast CT. Reviewed by: Gera Navarro MD on 12/15/2021 5:00 PM BARBARA Approved by: Gera Navarro MD on 12/15/2021 5:00 PM BARBARA Station ID: [id number]
--- NOTE | 2021-12-15 18:36 | CT Report ---
PROCEDURE: CT chest angiogram with contrast INDICATIONS: Dyspnea CONTRAST: IV CONTRAST: Optiray 320 ml: 100 PO CONTRAST: *NO PO CONTRAST TECHNIQUE: After the administration of intravenous contrast, 2 mm axial images were acquired from the pulmonary apices to the posterior costophrenic angles during the arterial phase. In addition, 1 mm lung kernel and 5 mm soft tissue kernel reconstructions were performed. For radiation dose reduction, the followi ng was used: automated exposure control, adjustment of mA and/or kV according to patient size. COMPARISON: None FINDINGS: Image quality: Excellent. Pulmonary arteries: Pulmonary arteries are normal in size, and demonstrate no intraluminal filling d efects to suggest central pulmonary embolism. Lungs and pleura: Lungs are clear. No pleural effusions or pneumothorax. Central and peripheral ai rways are patent. Mediastinum: Heart size is normal, without pericardial effusion. No mediastinal or hilar adenopathy . Thoracic aorta is normal in caliber and enhancement. Esophagus is normal in caliber, without hiat al hernia. Bones and chest wall: No suspicious bony lesions. Ribs and thoracic spine appear intact throughout. No axillary or supraclavicular adenopathy. The thyroid is normal in size and there are no incident al findings. Abdomen: Visualized upper abdominal solid organs appear normal in the early arterial phase of enhanc ement. IMPRESSION: Unremarkable CT of the chest without evidence of pulmonary embolism, aortic dissection or aneurysm Reviewed by: Luis Eduardo Caceres MD on 12/15/2021 5:34 PM BARBARA Approved by: Luis Eduardo Caceres MD on 12/15/2021 5:34 PM AKARMANI Station ID: [id number]
--- NOTE | 2021-12-15 18:44 | CT Report ---
PROCEDURE: CT abdomen and pelvis with contrast INDICATIONS: Postop pain CONTRAST: IV CONTRAST: Optiray 320 ml: 100 PO CONTRAST: *NO PO CONTRAST TECHNIQUE: After the administration of contrast, 5 mm thick sections acquired from the diaphragms to the sym physis. 5 mm thick coronal and sagittal reformats were acquired. For radiation dose reduction, the following was used: automated exposure control, adjustment of mA and/or kV according to patient size . COMPARISON: 05/07/2021 FINDINGS: Image quality: Excellent. ABDOMEN: Lung bases: Lung bases are clear. Heart size is normal. Solid organs: Liver and spleen are normal in size and enhancement other than small stable right hepa tic hemangioma. Gallbladder unremarkable. Biliary system is non dilated. Pancreas enhances normall y. No adrenal nodules. Kidneys demonstrate normal size and enhancement, without hydronephrosis. Peritoneum and bowel: Bowel loops demonstrate normal wall thickness and caliber. No free fluid or a ir. Appendectomy noted. Nodes and vessels: No retroperitoneal or mesenteric adenopathy by size criteria. Aorta and inferior vena cava are normal in size. Miscellaneous: No ventral hernias. PELVIS: Genitourinary: Bladder wall thickness is normal. Miscellaneous: No inguinal hernias or adenopathy. Bones: No suspicious bony lesions. No vertebral body compression fractures. IMPRESSION: 1. No acute CT findings in the abdomen and pelvis 2. Appendectomy, 3. Hepatic hemangioma, stable Reviewed by: Luis Eduardo Caceres MD on 12/15/2021 5:42 PM AKDT Approved by: Luis Eduardo Caceres MD on 12/15/2021 5:42 PM AKDT Station ID: [id number]
[2021-12-15 18:58] VITALS: BP 100/81
== END 2021-12-15 19:05 | disposition home or self-care (01) ==
LOC: ED 15:52
DX: R10.10 Upper abdominal pain, unspecified (principal); R06.09 Other forms of dyspnea; R42 Dizziness and giddiness; Z98.890 Other specified postprocedural states
CPT/HCPCS: 36415; 70450; 71275; 74177; 80053; 82803; 83690; 85025; 96374; 96375; 96376; 99284; J2060; J2765; Q9967

== ENCOUNTER 2021-12-23 21:30 | Emergency (ER) | payer OTHER ==
[2021-12-23] MEDS ORDERED: KETOROLAC 30 MG/ML VIAL IVP STA (22:01)
[2021-12-23] MEDS ORDERED: SODIUM CHLORIDE 0.9% 1,000 ML IV STA (22:01)
--- OUTSIDE RECORDS SUMMARY | 2021-12-23 22:14 | EXTERNAL MEDICAL SUMMARY RPT | Continuity of Care Document ---
:1995 Author Organization [facility] Address [address] [place] [address] Phone Care Team Providers Name Role Phone Fly Unavailable Unavailable Allergies No information. Encounters No information. Medications No information. Problems date description facility [id number] [facility] Procedures date description facility [id number] [facility] Results No information. Vital Signs date measurement value source 20211115 weight_standard 75.3 lb 20211115 weight_metric 34.15 kg 20211115 temperature_standard 98 F 20211115 temperature_metric 36.67 C 20211115 respiration_rate 24 /min 20211115 height_standard 62 in 20211115 height_metric 157.48 cm 20211115 heart_rate 91 /min 20211115 BP_systolic 125 mm[Hg] 20211115 BP_diastolic 74 mm[Hg] 20211115 BMI 30.3 kg/m2
[2021-12-23 22:15] LABS: BASOPHILS % (AUTO) 0.3 %; EOSINOPHILS # (AUTO) 0.1 10^3/uL (0.0-0.7); EOSINOPHILS % (AUTO) 1.3 %; HCT - HEMATOCRIT 40.8 % (37.0-47.0); HGB - HEMOGLOBIN 14.2 g/dL (12.0-16.0); LYMPHOCYTES # (AUTO) 3.3 10^3/uL (1.5-3.5); LYMPHOCYTES % (AUTO) 35.5 %; MEAN CORPUSCULAR HEMOGLOBIN 31.9 pg (27.0-31.0); MEAN CORPUSCULAR HGB CONC 34.8 g/dL (32.0-36.0); MEAN CORPUSCULAR VOLUME 91.7 fL (81.0-99.0); MEAN PLATELET VOLUME 9.5 fL (7.9-10.8); MONOCYTES # (AUTO) 0.5 10^3/uL (0.0-1.0); MONOCYTES % (AUTO) 5.3 %; NEUTROPHILS # (AUTO) 5.4 10^3/uL (1.5-6.6); NEUTROPHILS % (AUTO) 57.5 %; PLT - PLATELET COUNT 312 10^3/uL (130-450); RED BLOOD COUNT 4.45 10^6/uL (4.20-5.40); RED CELL DISTRIBUTION WIDTH 12.1 % (12.0-15.0); WHITE BLOOD COUNT 9.4 x10^3/uL (4.8-10.8)
[2021-12-23 22:29] LABS: ALBUMIN/GLOBULIN RATIO 1.2 (1.0-2.2); BILIRUBIN,TOTAL 0.2 mg/dL (0.2-1.0); CALCIUM 9.1 mg/dL (8.5-10.3); CREATININE 0.8 mg/dL (0.4-1.0); POTASSIUM 3.4 mmol/L (3.5-5.0); TOTAL PROTEIN 7.3 g/dL (6.7-8.2)
[2021-12-23 22:34] LABS: BILIRUBIN,URINE NEGATIVE (NEGATIVE); GLUCOSE, URINE (UA) NEGATIVE (NEGATIVE); KETONES,URINE (UA) NEGATIVE (NEGATIVE); LEUKOCYTE ESTERASE, URINE NEGATIVE (NEGATIVE); NITRITE,URINE NEGATIVE (NEGATIVE); OCCULT BLOOD,URINE NEGATIVE (NEGATIVE); PH,URINE 6.5 PH (5.0-7.5); PROTEIN,URINE NEGATIVE (NEGATIVE); UROBILINOGEN,URINE 0.2 (NORMAL) E.U./dL (NORMAL)
[2021-12-23 22:36] LABS: CLARITY,URINE CLEAR (CLEAR); HCG UR QUAL NEGATIVE
[2021-12-23] MEDS ORDERED: IOPAMIDOL-300 100 ML VIAL ONE (23:24)
[2021-12-23] MEDS ORDERED: IOPAMIDOL-300 100 ML VIAL IVP ONE (23:39)
--- NOTE | 2021-12-23 23:59 | ED Physician Documentation ---
History of Present Illness - Stated complaint Stated Complaint: LOW BACK PX/FEVER & BILAT LEG PX - Chief complaint Chief Complaint: Back Pain - Additonal information Additional information: Patient is a 26-year-old female with a recent diagnosis of Crohn's presenting for evaluation of low back pain that has been present for 4 days. Patient also reports feeling feverish and had a temperature this morning of 100.2. She took Tylenol an hour prior to arrival.She feels urinary urgency and dysuria. She denies hematuria.Her pain is more in the right flank.Nothing makes it better or worse. She denies any recent injuries or trauma.She denies cough, congestion, chest pain, difficulty breathing, Upper abdominal pain. She reports having some nausea but no vomiting. No diarrhea.She has been able to ambulate without difficulty. Denies bowel or bladder incontinence, cancer diagnosis, recent injections to the back, saddle anesthesia. Review of Systems Constitutional: reports: Fever Nose: denies: Congestion Cardiac: denies: Chest pain / pressure, Palpitations Respiratory: denies: Dyspnea, Cough GI: reports: Vomiting. 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, Other : Chronic bladder infection HEENT: None Psych: Depression, Anxiety, Panic attacks, Claustrophobia Musculoskeletal: Fibromyalgia, Other Derm: None - Past Surgical History Past Surgical History: Yes General: Appendectomy, Colonoscopy, EGD Ortho: Arthroscopic surgery HEENT: Other - Present Medications Home Medications: Ambulatory Orders Medication Instructions Recorded Confirmed DULoxetine [Cymbalta] 30 mg PO DAILY 11/03/21 11/03/21 Ketorolac [Toradol] 10 mg PO Q6H PRN #30 tablet 11/03/21 Omeprazole 40 mg PO DAILY 11/03/21 11/03/21 LORazepam [Ativan] 1 mg PO TID PRN #6 tablet 12/15/21 Metoclopramide [Reglan] 10 mg PO Q6H PRN #10 tablet 12/15/21 Oxycodone HCl/Acetaminophen 1 each PO Q6H PRN #8 tablet 12/24/21 [Percocet 5-325 mg Tablet] Phenazopyridine HCl [Pyridium] 200 mg PO TID PRN #6 tablet 12/24/21 - Allergies Allergies/Adverse Reactions: Allergies Allergy/AdvReac Type Severity Reaction Status Date / Time amoxicillin Allergy Unknown Verified 12/23/21 21:49 doxycycline Allergy Unknown Verified 12/23/21 21:49 lidocaine Allergy Edema Verified 12/23/21 21:49 Penicillins Allergy Rash Verified 12/23/21 21:49 - Social History Does the pt smoke?: No Smoking Status: Never smoker Does the pt drink ETOH?: Yes Does the pt have substance abuse?: No - Immunizations Immunizations are current?: Yes - POLST Patient has POLST: No PD ED PE NORMAL - General General: Alert and oriented X 3, No acute distress, Well developed/nourished - HEENT HEENT: Atraumatic, Moist mucous membranes, Pharynx benign - Neck Neck: No bony TTP - Cardiac Cardiac: RRR, No murmur, Strong equal pulses - Respiratory Respiratory: No respiratory distress, Clear bilaterally - Abdomen Abdomen: Normal bowel sounds, Soft, Non tender - Back Back: No spinal TTP. No: No CVA TTP (Right flank pain) - Derm Derm: Normal color, No rash - Extremities Extremities: No deformity, No edema, Other (Intact distal pulses) - Neuro Neuro: Alert and oriented X 3, No motor deficit, No sensory deficit, Normal spe ech Eye Opening: Spontaneous Motor: Obeys Commands - Psych Psych: Normal mood, Normal affect Results - Vitals Vitals: Vital Signs - 24 hr 12/23/21 12/23/21 12/24/21 21:43 22:44 01:07 Temperature 36.4 C L 36.6 C Heart Rate 118 H 97 87 Respiratory 18 20 22 Rate Blood Pressure 151/87 H 118/83 H O2 Saturation 98 99 99 Oxygen O2 Source Room air - EKG (time done) 2230 Rate: Rate (enter#) (90) Rhythm: NSR [place]: Normal Ischemia: No: ST elevation c/w ischemia - Labs Labs: Laboratory Tests 12/23/21 12/23/21 12/23/21 22:06 22:06 22:08 WBC 9.4 RBC 4.45 Hgb 14.2 Hct 40.8 MCV 91.7 MCH 31.9 H MCHC 34.8 RDW 12.1 Plt Count 312 MPV 9.5 Neut # (Auto) 5.4 Lymph # (Auto) 3.3 [place] # (Auto) 0.5 Eos # (Auto) 0.1 Baso # (Auto) 0.0 Absolute Nucleated RBC 0.00 Nucleated RBC % 0.0 Sodium Potassium Chloride Carbon Dioxide Anion Gap BUN Creatinine Estimated GFR (MDRD) Glucose Calcium Total Bilirubin AST ALT Alkaline Phosphatase Total Protein Albumin Globulin Albumin/Globulin Ratio Lipase Urine Color YELLOW Urine Clarity CLEAR Urine pH 6.5 Ur Specific [place] 1.020 Urine Protein NEGATIVE Urine Glucose (UA) NEGATIVE Urine Ketones NEGATIVE Urine Occult Blood NEGATIVE Urine Nitrite NEGATIVE Urine Bilirubin NEGATIVE Urine Urobilinogen 0.2 (NORMAL) Ur Leukocyte Esterase NEGATIVE Ur Microscopic Review NOT INDICATED Urine Culture Comments NOT INDICATED Urine HCG, Qual NEGATIVE 12/23/21 22:08 WBC RBC Hgb Hct MCV MCH MCHC RDW Plt Count MPV Neut # (Auto) Lymph # (Auto) [place] # (Auto) Eos # (Auto) Baso # (Auto) Absolute Nucleated RBC Nucleated RBC % Sodium 138 Potassium 3.4 L Chloride 103 Carbon Dioxide 25 Anion Gap 10.0 BUN 8 Creatinine 0.8 Estimated GFR (MDRD) 87 L Glucose 84 Calcium 9.1 Total Bilirubin 0.2 AST 17 ALT 14 Alkaline Phosphatase 90 Total Protein 7.3 Albumin 4.0 Globulin 3.3 Albumin/Globulin Ratio 1.2 Lipase 29 Urine Color Urine Clarity Urine pH Ur Specific [place] Urine Protein Urine Glucose (UA) Urine Ketones Urine Occult Blood Urine Nitrite Urine Bilirubin Urine Urobilinogen Ur Leukocyte Esterase Ur Microscopic Review Urine Culture Comments Urine HCG, Qual PD MEDICAL DECISION MAKING - ED course Complexity details: reviewed results, re-evaluated patient, d/w patient ED course: Presenting for evaluation of dysuria and back pain. She is initially tachycardic but otherwise in stable vital signs. Initial tachycardia quickly improved and appears similar to the previous ED visits.Labs obtained without significant abnormalities. Patient does endorse having dysuria and frequency but urine analysis is negative for urinary tract infection. Denies vaginal complaints such as discharge Or pelvic pain. Does report having flank pain and CT was obtained which is negative for acute findings. In regards to her back pain she does not have red flag signs or symptoms to suggest cauda equina, epidural hematoma/abscess.Patient does feel better with medications received in the ER. She is ambulatory.She does have limitations on medication she can use due to allergies and her Crohn's so short course of narcotic medications was prescribed. Patient is to follow-up with her primary care doctor next week. She is aware of return precautions. Departure - Departure Disposition: 01 Home, Self Care Clinical Impression: Dysuria Low back pain Qualifiers: Chronicity: acute Back pain laterality: right Sciatica presence: without sciatica Qualified Code(s): M54.50 - Low back pain, unspecified Condition: Stable Instructions: ED Dysuria Uncertain Cause, ED Flank Pain Uncertain Cause Prescriptions: Oxycodone HCl/Acetaminophen [Percocet 5-325 mg Tablet] 1 each PO Q6H PRN #8 tablet PRN Reason: pain Phenazopyridine HCl [Pyridium] 200 mg PO TID PRN #6 tablet PRN Reason: dysuria Comments: [place] - You were evaluated for pain to your back as well as concerns for urinary tract infection. Your urine did not show signs of an infection. Your labs were overall very reassuring. You had a CT scan of your abdomen and pelvis which also did not show infection or anything that requires emergent surgery.Your pain could be musculoskeletal in nature. It due to allergies a know you are limited on medications you can take. I have prescribed a short course of narcotic medications.Please keep your follow-up appointment with your doctor next week. If you have new or worsening symptoms please return to the emergency department, particularly if you have increased weakness to your legs, loss of control of bowel or bladder, continued fevers, abdominal pain. Precription was sent to the [facility] pharmacy in [place]. I am prescribing a short course of narcotic pain medication for you. These are potentially dangerous and addictive medications that should be used carefully. These medications may constipate you. Take an bmdf-wfn-myetqvx stool softener (docusate) twice daily with plenty of water while taking these medications. If you go 24 hours without a bowel movement, take mokl-fmt-kcyolhu miralax, per package instructions. Do not drink or drive while taking these medications. If you received narcotic or sedating medications while in the emergency department, do not drive for 24 hours. Store this medication in a safe, secure place and out of reach of children. It is a violation of federal law to give or sell this medication to another person or to use in a manner other than prescribed. The ED will not refill narcotic prescriptions, including prescriptions lost or stolen. To dispose of unwanted medications: 1. [facility] at [address] in [place] has a medication drop box. They accept prescription medications (in pill form) Monday through Monday 9:00 a.m. to 5:00 p.m. 2. The [facility] Department accepts prescription medications (in pill form only) for disposal year round. Call for more information. 3. Contact the [facility] for the next [facility] sponsored prescription drug collection event. , [phone], or [phone]; Note that many narcotic pain relievers also contain Tylenol/acetaminophen. Please ensure that your total dose of acetaminophen from all sources does not exceed 3 g (3000 mg) per day. Discharge Date/Time: 12/24/21 01:07
--- NOTE | 2021-12-24 00:06 | CT Report ---
PROCEDURE: Abdomen/Pelvis W INDICATIONS: pain/fever/dysuria CONTRAST: IV CONTRAST: Isovue 300 ml: 100 PO CONTRAST: *NO PO CONTRAST TECHNIQUE: After the administration of IV contrast, 5 mm thick sections acquired from the diaphragms to the symp hysis. 5 mm thick coronal and sagittal reformats were acquired. For radiation dose reduction, the f ollowing was used: automated exposure control, adjustment of mA and/or kV according to patient size. COMPARISON: 12/15/2021 04/06/2020. FINDINGS: Image quality: Excellent. ABDOMEN: Lung bases: Lung bases are clear. Heart size is normal. Solid organs: Liver is normal size. There is ill-defined hypodensity in segment V/VIII measuring 2.0 cm The gallbladder, adrenal glands, spleen, pancreas, biliary system, and kidneys appear normal. Spe cifically, there is symmetric enhancement of both kidneys without evidence of hydronephrosis or nephr olithiasis. The ureters are normal. Peritoneum and bowel: Bowel loops demonstrate normal wall thickness and caliber. The appendix is ab sent. No free fluid or air. Nodes and vessels: No retroperitoneal or mesenteric adenopathy by size criteria. Aorta and inferior vena cava are normal in size. Miscellaneous: No ventral hernias. PELVIS: Genitourinary: Bladder wall thickness is normal. Normal uterus and ovaries. No suspicious adnexal m asses or fluid. Miscellaneous: No inguinal hernias or adenopathy. Bones: No suspicious bony lesions. No vertebral body compression fractures. IMPRESSION: 1. No CT evidence of acute process. 2. Stable hepatic hemangioma. 3. Prior appendectomy. Reviewed by: Cari Sagastume MD on 12/24/2021 12:07 AM PDT Approved by: Cari Sagastume MD on 12/24/2021 12:07 AM PDT Station ID: [id number]
[2021-12-24] MEDS ORDERED: oxyCODONE/ACET 5/325 Prepack 4 PO STA (00:12)
[2021-12-24] MEDS ORDERED: PHENAZOPYRIDINE 100 MG TABLET PO STA (00:12)
[2021-12-24 01:09] VITALS: BP 118/83
== END 2021-12-24 01:07 | disposition home or self-care (01) ==
LOC: ED 21:30
DX: M54.50 Low back pain, unspecified (principal); R30.0 Dysuria; K50.90 Crohn's disease, unspecified, without complications
CPT/HCPCS: 36415; 51798; 74177; 80053; 81003; 81025; 83690; 85025; 93005; 96374; 99284; A9270; Q9967; 81001; 87086

== ENCOUNTER 2022-01-27 00:06 | Emergency (ER) | payer OTHER ==
--- OUTSIDE RECORDS SUMMARY | 2022-01-27 00:25 | EXTERNAL MEDICAL SUMMARY RPT | Continuity of Care Document ---
:1995 Author Organization [facility] Address [address] [place] [address] Phone Care Team Providers Name Role Phone [place] Unavailable Unavailable Fly Unavailable Unavailable Miscellaneous Unavailable Unavailable Allergies No information. Encounters No information. Medications date description facility 20220116 tramadol hydrochloride 50 MG Oral [facility] 20220116 Sucralfate 1000 MG Oral Tablet [facility] 20220116 pantoprazole 40 MG Enteric Coated [facility] 20220116 Prednisone 10 MG [facility] 20220116 Oxycodone Hydrochloride 5 MG Oral [facility] 20220115 pantoprazole 40 MG Enteric Coated [facility] 20220115 24 HR venlafaxine 150 MG Extended Relea se Capsule [facility] 20220115 Famotidine 40 MG Oral Tablet [facility] 20220115 Ondansetron 4 MG Disintegrating Tablet [facility] Problems date description facility 20220115 Unspecified abdominal pain [facility] 20211115 Jaw pain [facility] Procedures date description facility [id number] [facility] 20220115 [facility] [id number] [facility] [id number] [facility] 20220109 [facility] [id number] [facility] [id number] [facility] [id number] [facility] Results No information. Vital Signs date measurement value source 20211115 BMI 30.3 kg/m2 20211115 height_standard 62 in 20211115 height_metric 157.48 cm 20211115 BMI 30.3 kg/m2 20211115 weight_standard 75.3 lb 20211115 weight_metric 34.15 kg 20211115 temperature_standard 98 F 20211115 temperature_metric 36.67 C 20211115 respiration_rate 24 /min 20211115 height_standard 62 in 20211115 height_metric 157.48 cm 20211115 heart_rate 91 /min 20211115 BP_systolic 125 mm[Hg] 20211115 BP_diastolic 74 mm[Hg] 20211115 BMI 30.3 kg/m2 20220109 weight_standard 77.11 lb 20220109 weight_metric 34.98 kg 20220109 temperature_standard 97.8 F 20220109 temperature_metric 36.56 C 20220110 respiration_rate 16 /min 20220110 heart_rate 80 /min 20220110 BP_systolic 120 mm[Hg] 20220110 BP_diastolic 78 mm[Hg] 20220115 weight_standard 75 lb 20220115 weight_metric 34.02 kg 20220115 temperature_standard 97.3 F 20220115 temperature_metric 36.28 C 20220115 respiration_rate 17 /min 20220115 height_standard 62.99 in 20220115 height_metric 160 cm 20220115 heart_rate 91 /min 20220115 BP_systolic 118 mm[Hg] 20220115 BP_diastolic 69 mm[Hg] 20220116 temperature_standard 97.5 F 20220116 temperature_metric 36.39 C 20220116 respiration_rate 18 /min 20220116 heart_rate 77 /min 20220116 BP_systolic 114 mm[Hg] 20220116 BP_diastolic 69 mm[Hg]
[2022-01-27 00:47] LABS: BASOPHILS % (AUTO) 0.2 %; HCT - HEMATOCRIT 42.4 % (37.0-47.0); HGB - HEMOGLOBIN 14.5 g/dL (12.0-16.0); LYMPHOCYTES % (AUTO) 12.3 %; MEAN CORPUSCULAR HEMOGLOBIN 32.4 pg (27.0-31.0); MEAN CORPUSCULAR HGB CONC 34.2 g/dL (32.0-36.0); MEAN CORPUSCULAR VOLUME 94.9 fL (81.0-99.0); MEAN PLATELET VOLUME 8.9 fL (7.9-10.8); MONOCYTES # (AUTO) 0.6 10^3/uL (0.0-1.0); MONOCYTES % (AUTO) 3.4 %; NEUTROPHILS # (AUTO) 13.4 10^3/uL (1.5-6.6); NEUTROPHILS % (AUTO) 82.4 %; PLT - PLATELET COUNT 367 10^3/uL (130-450); RED BLOOD COUNT 4.47 10^6/uL (4.20-5.40); RED CELL DISTRIBUTION WIDTH 12.4 % (12.0-15.0); WHITE BLOOD COUNT 16.3 x10^3/uL (4.8-10.8)
[2022-01-27] MEDS: SODIUM CHLORIDE 0.9% 1,000 ML IV STA (00:52)
[2022-01-27] MEDS: MORPHINE 2 MG/ML CARPUJECT IVP STA (00:52)
[2022-01-27 00:55] LABS: BILIRUBIN,URINE NEGATIVE (NEGATIVE); GLUCOSE, URINE (UA) NEGATIVE (NEGATIVE); KETONES,URINE (UA) NEGATIVE (NEGATIVE); LEUKOCYTE ESTERASE, URINE NEGATIVE (NEGATIVE); NITRITE,URINE NEGATIVE (NEGATIVE); OCCULT BLOOD,URINE NEGATIVE (NEGATIVE); PH,URINE 6.5 PH (5.0-7.5); PROTEIN,URINE NEGATIVE (NEGATIVE); UROBILINOGEN,URINE 0.2 (NORMAL) E.U./dL (NORMAL)
[2022-01-27 00:57] LABS: ALBUMIN 4.2 g/dL (3.2-5.5); ALBUMIN/GLOBULIN RATIO 1.4 (1.0-2.2); ALKALINE PHOSPHATASE 80 IU/L (42-121); ALT ALANINE AMINOTRANSFERASE 20 IU/L (10-60); AST ASPARTATE AMINOTRANSFERASE 15 IU/L (10-42); BILIRUBIN,TOTAL < 0.2 mg/dL (0.2-1.0); BUN - BLOOD UREA NITROGEN 13 mg/dL (6-20); CALCIUM 9.3 mg/dL (8.5-10.3); CARBON DIOXIDE - CO2 26 mmol/L (21-32); CHLORIDE 102 mmol/L (101-111); CREATININE 0.8 mg/dL (0.4-1.0); GFR - MDRD 87 (>89); GLUCOSE 87 mg/dL (70-100); LIPASE 30 U/L (22-51); POTASSIUM 3.5 mmol/L (3.5-5.0); SODIUM 140 mmol/L (135-145); TOTAL PROTEIN 7.3 g/dL (6.7-8.2)
[2022-01-27 01:02] LABS: CLARITY,URINE CLEAR (CLEAR); HCG UR QUAL NEGATIVE
--- NOTE | 2022-01-27 01:05 | ED Physician Documentation ---
PD HPI ABD PAIN - Stated complaint Stated Complaint: ABD PX & CP - Chief complaint Chief Complaint: Abd Pain - Additional information Additional information: Patient is a 26-year-old female with Long history of abdominal Issues presenting for evaluation of upper abdominal pain that has been present for 3 days. Patient was recently admitted to [facility] from January 09 to . She had had a colonoscopy in November and was told by her GI doctor that there is some inflammation but it was likely related to fibromyalgia. When she was seen at [facility] a hospitalist and general surgeon felt that she could be having a Crohn's flareup and started her on a long steroid taper. She has been taking the steroids. She was also discharged home on pain medication. She reports her symptoms have worsened over the last few days. She did have an episode of emesis tonight but did have Zofran at home and that has improved. Nothing makes her symptoms better or worse. She has not followed up with any physicians in the last 2 weeks and is scheduled to see her PCP next Monday and her GI doctor later in January. Her GI is through [facility]. She denies dysuria, vaginal bleeding or discharge. She denies fever, chest pain or difficulty breathing. Records from [facility] reviewed. Patient was initially admitted for concerns for small bowel obstruction versus ileus given findings on CT scan. There is a small area of inflammation also noted on CT. Discharge summary indicates concerns for possible Inflammatory bowel diseaseAnd patient was discharged on steroid taper for 8 weeks along with Tylenol and tramadol for pain.It was advised that she reach out to a software developer consultant at a teaching or tertiary facilityTo further explore her diagnosis. Review of Systems Constitutional: denies: Fever Nose: denies: Congestion Cardiac: denies: Chest pain / pressure, Palpitations Respiratory: denies: Dyspnea, Cough GI: reports: Abdominal Pain, Nausea, Vomiting. denies: Diarrhea : denies: Dysuria, Hematuria Skin: denies: Rash Musculoskeletal: denies: Back pain Neurologic: denies: Headache 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, Other [employer]: Ovarian cysts, Other : Chronic bladder infection HEENT: None Psych: Depression, Anxiety, Panic attacks, Claustrophobia Musculoskeletal: Fibromyalgia, Other Derm: None - Past Surgical History Past Surgical History: Yes General: Appendectomy, Colonoscopy, EGD Ortho: Arthroscopic surgery HEENT: Other - Present Medications Home Medications: Ambulatory Orders Medication Instructions Recorded Confirmed DULoxetine [Cymbalta] 30 mg PO DAILY 11/03/21 11/03/21 Ketorolac [Toradol] 10 mg PO Q6H PRN #30 tablet 11/03/21 Omeprazole 40 mg PO DAILY 11/03/21 11/03/21 LORazepam [Ativan] 1 mg PO TID PRN #6 tablet 12/15/21 Metoclopramide [Reglan] 10 mg PO Q6H PRN #10 tablet 12/15/21 Oxycodone HCl/Acetaminophen 1 each PO Q6H PRN #8 tablet 12/24/21 [Percocet 5-325 mg Tablet] Phenazopyridine HCl [Pyridium] 200 mg PO TID PRN #6 tablet 12/24/21 Oxycodone HCl/Acetaminophen 1 each PO Q6H PRN #12 tablet 01/27/22 [Percocet 5-325 mg Tablet] - Allergies Allergies/Adverse Reactions: Allergies Allergy/AdvReac Type Severity Reaction Status Date / Time amoxicillin Allergy Unknown Verified 01/27/22 00:21 doxycycline Allergy Unknown Verified 01/27/22 00:21 lidocaine Allergy Edema Verified 01/27/22 00:21 Penicillins Allergy Rash Verified 01/27/22 00:21 - Social History Does the pt smoke?: No Smoking Status: Never smoker Does the pt drink ETOH?: Yes Does the pt have substance abuse?: No - Immunizations Immunizations are current?: Yes - POLST Patient has POLST: No PD ED PE NORMAL - General General: Alert and oriented X 3, No acute distress, Well developed/nourished - HEENT HEENT: Atraumatic, Moist mucous membranes - Neck Neck: Supple, no meningeal sign - Cardiac Cardiac: No murmur, Strong equal pulses, Other (Tachycardic, regular rhythm) - Respiratory Respiratory: No respiratory distress, Clear bilaterally - Abdomen Abdomen: Normal bowel sounds, Soft, Non distended, Other (Mild generalized abdominal tenderness, No rebound, no guarding) - Derm Derm: Warm and dry - Extremities Extremities: No edema - Neuro Neuro: Normal speech Results - Vitals Vitals: Vital Signs - 24 hr 06/02/22 06/02/22 06/02/22 00:18 00:25 02:32 Temperature 36.9 C Heart Rate 134 H 124 H 98 Respiratory 20 18 18 Rate Blood Pressure 143/91 H 143/91 H 132/89 H O2 Saturation 97 99 99 Oxygen O2 Source Room air - Labs Labs: Laboratory Tests 01/27/22 01/27/22 01/27/22 00:30 00:37 00:37 WBC 16.3 H RBC 4.47 Hgb 14.5 Hct 42.4 MCV 94.9 MCH 32.4 H MCHC 34.2 RDW 12.4 Plt Count 367 MPV 8.9 Neut # (Auto) 13.4 H Lymph # (Auto) 2.0 [place] # (Auto) 0.6 Eos # (Auto) 0.0 Baso # (Auto) 0.0 Absolute Nucleated RBC 0.00 Nucleated RBC % 0.0 Sodium 140 Potassium 3.5 Chloride 102 Carbon Dioxide 26 Anion Gap 12.0 BUN 13 Creatinine 0.8 Estimated GFR (MDRD) 87 L Glucose 87 Calcium 9.3 Total Bilirubin < 0.2 L AST 15 ALT 20 Alkaline Phosphatase 80 Total Protein 7.3 Albumin 4.2 Globulin 3.1 Albumin/Globulin Ratio 1.4 Lipase 30 Urine Color YELLOW Urine Clarity CLEAR Urine pH 6.5 Ur Specific [place] 1.020 Urine Protein NEGATIVE Urine Glucose (UA) NEGATIVE Urine Ketones NEGATIVE Urine Occult Blood NEGATIVE Urine Nitrite NEGATIVE Urine Bilirubin NEGATIVE Urine Urobilinogen 0.2 (NORMAL) Ur Leukocyte Esterase NEGATIVE Ur Microscopic Review NOT INDICATED Urine Culture Comments NOT INDICATED Urine HCG, Qual NEGATIVE PD MEDICAL DECISION MAKING - ED course ED course: Due to global and hospital shortage of IV contrast related to Covid [address], [address] scan ordered without contrast. Patient presenting for evaluation of abdominal pain. Has long history of visits for abdominal pain. The patient was recently admitted at [facility] and started on regiment for concerns of inflammatory bowel disease.Patient is tachycardic as she has been on previous visits. This did improve with fluids. Labs with mild leukocytosis which is not significantly different been discharged from [facility]. Patient additionally is on prednisone which could be contributing. CT scan without acute findings. Patient did appear comfortable while in the emergency department. However I do believe that she is having true pain and her diagnosis is still yet unclear. Will prescribe a short course of narcotic medications until she is able to follow-up with her primary care doctor. She is aware of return precautions. Departure - Departure Disposition: 01 Home, Self Care Clinical Impression: Abdominal pain, generalized, Tachycardia Condition: Stable Instructions: ED Abdominal Pain Female Non-Specific Abdominal Pain Prescriptions: Oxycodone HCl/Acetaminophen [Percocet 5-325 mg Tablet] 1 each PO Q6H PRN #12 tablet PRN Reason: pain Comments: [place] - You Evaluated for abdominal pain. Your labs were reviewed and show a mildly elevated white count which is similar to when you were at [facility]. It could also be elevated because you are on steroids. A CT scan was done and does not show signs of inflammation or bowel obstruction at this time. I do think you are having true pain and so I will prescribe you a short course of narcotic pain medication. I do think it could be beneficial to Have a second opinion from another GI doctor at a teaching hospital or tertiary care center such as [facility] as the surgeon also recommended at [facility] to help you figure out the cause of your symptoms. Please continue taking your medications that you were discharged with as prescribed and follow- up with your primary care doctor as scheduled on Monday. I am prescribing a short course of narcotic pain medication for you. These are potentially dangerous and addictive medications that should be used carefully. These medications may constipate you. Take an [id number] stool softener (docusate) twice daily with plenty of water while taking these medications. If you go 24 hours without a bowel movement, take [id number] miralax, per package instructions. Do not drink or drive while taking these medications. If you received narcotic or sedating medications while in the emergency department, do not drive for 24 hours. Store this medication in a safe, secure place and out of reach of children. It is a violation of federal law to give or sell this medication to another person or to use in a manner other than prescribed. The ED will not refill narcotic prescriptions, including prescriptions lost or stolen. To dispose of unwanted medications: 1. [facility] [address] [facility] [place] has a medication drop box. They accept prescription medications (in pill form) Monday through Monday 9:00 a.m. to 5:00 p.m. 2. [facility] [employer] [facility] accepts prescription medications (in pill form only) for disposal year round. Call for more information. 3. Contact the [facility] for the next [facility] sponsored prescription dr kathleen collection event. , [phone], or [phone]; Note that many narcotic pain relievers also contain Tylenol/acetaminophen. Please ensure that your total dose of acetaminophen from all sources does not exceed 3 g (3000 mg) per day. Discharge Date/Time: 01/27/22 02:58
--- NOTE | 2022-01-27 01:38 | CT Report ---
PROCEDURE: Abdomen/Pelvis WO INDICATIONS: worsening pain/?crohns TECHNIQUE: Noncontrast 5 mm thick sections acquired from the diaphragms to the symphysis. 5 mm coronal and sagi ttal reformats were then performed. For radiation dose reduction, the following was used: automated exposure control, adjustment of mA and/or kV according to patient size. COMPARISON: 12/23/21, 12/15/2021 FINDINGS: Image quality: Excellent. Lung bases: There is mild dependant atelectasis. Heart: Heart is normal in size. ABDOMEN: Liver: Noncontrast evaluation of the liver demonstrates no focal hypodense lesion in the right hepat ic lobe measuring up to 2.5 cm. The findings correspond to hypervascular lesion seen on the prior stephen dy suggestive of a hemangioma. Gallbladder: Within normal limits without calcified gallstones. Biliary ducts: No biliary ductal dilatation. Pancreas: Unremarkable. Spleen: Normal in size. Adrenal Glands: No adrenal nodules. Stomach and Bowel: Stomach, small bowel loops, and colon are normal in caliber and wall thickness. T here is colonic diverticulosis without acute diverticulitis. Peritoneum: No abnormal intraperitoneal fluid. No free air. Ventral Wall: No hernia. Abdominal Nodes: No retroperitoneal or mesenteric adenopathy by size criteria. Vessels: Aorta and inferior vena cava are normal in size. PELVIS: Pelvic Organs: Unremarkable. Pelvic Nodes: No enlarged lymph nodes. Miscellaneous: No inguinal hernias identified. Bones: Visualized osseous structures demonstrate no suspicious focal lesions. IMPRESSION: 1. No definite acute inflammatory changes within the small or large bowel. Colonic diverticulosis wit hout acute diverticulitis. 2. Probable hemangioma redemonstrated in the right lower lobe. 3. Colonic diverticulosis. Reviewed by: Alex Forrest MD on 01/27/2022 1:41 AM PDT Approved by: Alex Forrest MD on 01/27/2022 1:41 AM PDT Station ID: [id number]
[2022-01-27 02:33] VITALS: BP 132/89
[2022-01-27] MEDS: oxyCODONE/ACET 5/325 Prepack 4 PO STA (02:50)
[2022-01-27] MEDS ORDERED: oxyCODONE/ACET 5/325 Prepack 4 PO ONE (02:54)
== END 2022-01-27 02:58 | disposition home or self-care (01) ==
LOC: ED 00:06
DX: R10.84 Generalized abdominal pain (principal); R00.0 Tachycardia, unspecified
CPT/HCPCS: 36415; 80053; 81001; 81003; 81025; 83690; 85025; 87086; 96374; 99284

== ENCOUNTER 2022-02-12 22:43 | Emergency (ER) | payer OTHER ==
[2022-02-12 23:21] LABS: BASOPHILS % (AUTO) 0.3 %; EOSINOPHILS # (AUTO) 0.2 10^3/uL (0.0-0.7); EOSINOPHILS % (AUTO) 1.8 %; HCT - HEMATOCRIT 40.2 % (37.0-47.0); HGB - HEMOGLOBIN 13.5 g/dL (12.0-16.0); MEAN CORPUSCULAR HEMOGLOBIN 32.8 pg (27.0-31.0); MEAN CORPUSCULAR HGB CONC 33.6 g/dL (32.0-36.0); MEAN CORPUSCULAR VOLUME 97.6 fL (81.0-99.0); MEAN PLATELET VOLUME 8.6 fL (7.9-10.8); MONOCYTES # (AUTO) 0.5 10^3/uL (0.0-1.0); MONOCYTES % (AUTO) 5.8 %; NEUTROPHILS # (AUTO) 5.4 10^3/uL (1.5-6.6); NEUTROPHILS % (AUTO) 58.3 %; PLT - PLATELET COUNT 271 10^3/uL (130-450); RED BLOOD COUNT 4.12 10^6/uL (4.20-5.40); RED CELL DISTRIBUTION WIDTH 12.2 % (12.0-15.0); WHITE BLOOD COUNT 9.2 x10^3/uL (4.8-10.8)
[2022-02-12 23:30] LABS: ALBUMIN 3.8 g/dL (3.2-5.5); ALBUMIN/GLOBULIN RATIO 1.3 (1.0-2.2); BILIRUBIN,TOTAL 0.3 mg/dL (0.2-1.0); CALCIUM 8.8 mg/dL (8.5-10.3); CREATININE 0.8 mg/dL (0.4-1.0); POTASSIUM 3.3 mmol/L (3.5-5.0); TOTAL PROTEIN 6.7 g/dL (6.7-8.2)
--- NOTE | 2022-02-12 23:57 | ED Physician Documentation ---
PD HPI CHEST PAIN - Stated complaint Stated Complaint: HEART FLUTTER/SOA - Chief complaint Chief Complaint: Cardiac - History obtained from History obtained from: Patient - History of Present Illness Timing - onset: How many months ago (has had mid abd pain for months, consistent the past month. No current Dx. Has been noted to be tachycardic with it. No targeted treatment for the heart rate per se, but focus on the abd pain as cause. She noted her abd pain worse this evening despite home meds and felt her heart rate going fast too) Timing - onset during: Rest Timing - details: Gradual onset, Still present, Waxing and waning Quality: Other (no chest pain per se. Had the mid abd pain.). No: Pressure, Tightness, Aching Location: Other (abd) Radiation: Back Worsened by: No: Exertion, Inspiration Associated symptoms: Nausea, Feeling faint / dizzy, Palpitations. No: Shortness of air, Diaphoresis, General Weakness Similar symptoms before: No diagnosis (has had the upper abd pain for month or m ore with ED visit 01/27/22 after GI eval with colonoscopy and EGD. There was mild finding of colon wall inflammation on CT and scope and treated with steroid course 5 days, without better. Repeat colonoscopy 2 days ago normal. Recent seen [facility] for the pain.), Other (was noted sinus tachycardia on recent visits without explanation. On prior ED visit, it was noted to slow with pain meds.) Recently seen: Emergency Dept, Surgery (colonoscopy) Review of Systems Constitutional: denies: Fever, Chills Nose: denies: Rhinorrhea / runny nose, Congestion Throat: denies: Sore throat Cardiac: reports: Palpitations. denies: Pedal edema, Calf pain Respiratory: denies: Dyspnea, Cough, Wheezing GI: reports: Abdominal Pain, Nausea. denies: Vomiting, Constipation, Diarrhea, Bloody / black stool : denies: Dysuria, Frequency Skin: denies: Rash, Lesions Neurologic: reports: Generalized weakness. denies: Focal weakness, Numbness, Altered mental status, Headache 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, Other [employer]: Ovarian cysts, Other : Chronic bladder infection HEENT: None Psych: Depression, Anxiety, Panic attacks, Claustrophobia Musculoskeletal: Fibromyalgia, Other Derm: None - Past Surgical History Past Surgical History: Yes General: Appendectomy, Colonoscopy, EGD Ortho: Arthroscopic surgery HEENT: Other - Present Medications Home Medications: Ambulatory Orders Medication Instructions Recorded Confirmed DULoxetine [Cymbalta] 30 mg PO DAILY 11/03/21 11/03/21 Ketorolac [Toradol] 10 mg PO Q6H PRN #30 tablet 11/03/21 Omeprazole 40 mg PO DAILY 11/03/21 11/03/21 LORazepam [Ativan] 1 mg PO TID PRN #6 tablet 12/15/21 Metoclopramide [Reglan] 10 mg PO Q6H PRN #10 tablet 12/15/21 Oxycodone HCl/Acetaminophen 1 each PO Q6H PRN #8 tablet 12/24/21 [Percocet 5-325 mg Tablet] Phenazopyridine HCl [Pyridium] 200 mg PO TID PRN #6 tablet 12/24/21 Oxycodone HCl/Acetaminophen 1 each PO Q6H PRN #12 tablet 01/27/22 [Percocet 5-325 mg Tablet] Acetaminophen [Acetaminophen Extra 500 mg PO QID PRN #50 tablet 02/13/22 Strength] Labetalol [Trandate] 100 mg PO DAILY #20 tablet 02/13/22 oxyCODONE [Roxicodone] 5 mg PO TID PRN #15 tablet 02/13/22 - Allergies Allergies/Adverse Reactions: Allergies Allergy/AdvReac Type Severity Reaction Status Date / Time amoxicillin Allergy Unknown Verified 02/12/22 22:54 doxycycline Allergy Unknown Verified 02/12/22 22:54 lidocaine Allergy Edema Verified 02/12/22 22:54 Penicillins Allergy Rash Verified 02/12/22 22:54 - Social History Does the pt smoke?: No Smoking Status: Never smoker Does the pt drink ETOH?: Yes Does the pt have substance abuse?: No - Immunizations Immunizations are current?: Yes - POLST Patient has POLST: No PD ED PE NORMAL - Vitals Vital signs reviewed: Yes - General General: Alert and oriented X 3, Well developed/nourished, Other (appears in pain and holding mid abdomen. ) - HEENT HEENT: Pharynx benign - Neck Neck: Supple, no meningeal sign, No adenopathy, Thyroid normal - Cardiac Cardiac: No murmur, No rub. No: RRR (tachycardic but regular. ) - Respiratory Respiratory: Clear bilaterally - Abdomen Abdomen: Normal bowel sounds, Soft, Non distended, No organomegaly, Other (tender in mid abdomen and supraumbilical area. No redness/masses/hernias felt. ) - Female Female : Deferred - Rectal Rectal: Deferred - Back Back: No CVA TTP - Derm Derm: Normal color, Warm and dry - Extremities Extremities: No tenderness to palpate, Normal ROM s pain, No edema, No calf tenderness / cord Results - Vitals Vitals: Oxygen O2 Source Room air - EKG (time done) 22:58 Rate: Rate (enter#) (121) Rhythm: Sinus tachycardia [place]: Normal Intervals: Normal OK QRS: Normal Ischemia: Normal ST segments. No: ST elevation c/w ischemia, ST depression - Tele (time rhythm occurred) monitor in ED Telemetry / rhythm strip: Sinus tachycardia (there is rate variability so does not appear SVT nor atrial flutter. Slows as pain is reduced. ) - Labs Labs: Laboratory Tests 02/12/22 02/12/22 02/12/22 23:10 23:10 23:10 WBC 9.2 RBC 4.12 L Hgb 13.5 Hct 40.2 MCV 97.6 MCH 32.8 H MCHC 33.6 RDW 12.2 Plt Count 271 MPV 8.6 Neut # (Auto) 5.4 Lymph # (Auto) 3.0 Prentiss # (Auto) 0.5 Eos # (Auto) 0.2 Baso # (Auto) 0.0 Absolute Nucleated RBC 0.00 Nucleated RBC % 0.0 Sodium 137 Potassium 3.3 L Chloride 102 Carbon Dioxide 28 Anion Gap 7.0 BUN 16 Creatinine 0.8 Estimated GFR (MDRD) 87 L Glucose 82 Calcium 8.8 Total Bilirubin 0.3 AST 16 ALT 22 Alkaline Phosphatase 66 Troponin I High Sens < 2.3 L Total Protein 6.7 Albumin 3.8 Globulin 2.9 Albumin/Globulin Ratio 1.3 Lipase 28 - Rads (name of study) chest xray Radiology: Prelim report reviewed (normal for age), See rad report PD MEDICAL DECISION MAKING - ED course Complexity details: reviewed old records (Records obtained from [facility] recent visit, and lab results from their lab reviewed which did include TSH among others. ), reviewed results (has had significant recent work up of the abd pain that I do not have other diagnostic options in my tool kit at this time in ER. will treat pain exacerbation symptomatically. Same for tachycardia.), considered differential (unclear sinus tachycardia. Does not seem primary cardiac issue but secondary. Could be just from pain. She denies regularity of pain meds (and NAYELI would not support) so unlikely withdrawal tachycardia. Can be tachy from pain/anxiety. No apparently from anemai, thyroid, blood loss, dehydration, etc.), d/w patient Departure - Departure Disposition: Home, Self Care Clinical Impression: Sinus tachycardia, Upper abdominal pain Condition: Stable Record reviewed to determine appropriate education?: Yes Prescriptions: Acetaminophen [Acetaminophen Extra Strength] 500 mg PO QID PRN #50 tablet PRN Reason: Pain oxyCODONE [Roxicodone] 5 mg PO TID PRN #15 tablet PRN Reason: Pain Labetalol [Trandate] 100 mg PO DAILY #20 tablet Comments: Its unclear the cause of your abdominal pain and you have had reasonable recent tests to evaluate. I did not really try to diagnose that in this visit tonight. We can go short-term with some oxycodone 3 times daily if needed for pain. I would also suggest acetaminophen 4 times daily regularly for the next 10 days or so to help with the pain as well. Your heart rate is going fast and there is no obvious precipitant for this given test this evening and the ones you recently had at [facility]. For symptoms we can try a beta-erich called labetalol daily and see if that helps with the fast heart rate. Follow-up with your primary care regarding further evaluation. I transmitted your prescriptions to [facility] pharmacy. I am prescribing a short course of narcotic pain medication for you. These are potentially dangerous and addictive medications that should be used carefully. These medications may constipate you. Take an [id number] stool softener such as docusate twice daily with plenty of water while taking these medications. If you go 24 hours without a bowel movement, take [id number] MiraLAX, per package instructions. Do not drink or drive while taking these medications. If you received narcotic or sedating medications while in the emergency department do not drive for 24 hours. Store this medication in a safe, secure place and out of reach of children. It is a violation of federal law to give or sell this medication to another person or to use in a manner other than prescribed. The ED will not refill narcotic prescriptions, including prescriptions lost or stolen. You can dispose of unwanted medications at the [facility]'s office or at several pharmacies such as [facility]. Discharge Date/Time: 02/13/22 01:54
[2022-02-13] MEDS ORDERED: oxyCODONE 5 MG TABLET PO STA (01:00)
[2022-02-13] MEDS ORDERED: LABETALOL 100 MG TABLET PO STA (01:00)
[2022-02-13] MEDS ORDERED: oxyCODONE/ACET 5/325 Prepack 4 PO STA (01:07)
--- NOTE | 2022-02-13 01:15 | XRAY Report ---
PROCEDURE: Chest 1 View X-Ray INDICATIONS: Chest pain TECHNIQUE: One view of the chest was acquired. COMPARISON: Chest 03/11/2015. FINDINGS: Surgical changes and devices: None. Lungs and pleura: No pleural effusions or pneumothorax. Lungs are clear. Mediastinum: Mediastinal contours appear normal. Heart size is normal. Bones and chest wall: No suspicious bony lesions. Overlying soft tissues appear unremarkable. IMPRESSION: Normal for age, source of chest pain is not seen. Reviewed by: Jeremiah Real MD on 02/13/2022 1:13 AM PDT Approved by: Jeremiah Real MD on 02/13/2022 1:13 AM PDT Station ID: [id number]
[2022-02-13 01:36] VITALS: BP 119/88
--- OUTSIDE RECORDS SUMMARY | 2022-02-17 15:34 | EXTERNAL MEDICAL SUMMARY RPT | Continuity of Care Document ---
:1995 Author Organization Boss Address [address] [place] [address] Phone Allergies and Intolerances date description facility type (no date) Penicillins [facility] (unknown) (no date) doxycycline [facility] (unknown) (no date) hydrocodone [facility] (unknown) (no date) lidocaine [facility] (unknown) (no date) shellfish derived [facility] (unknown) Encounters No information. Functional Status No information. Immunizations No information. Medications date description facility + Ondansetron 4 MG Disintegrating Tablet [facility] +0000 Oxycodone Hydrochloride 5 MG Oral [facility] +0000 Prednisone 10 MG Oral Tablet [facility] +0000 Famotidine 40 MG Oral Tablet [facility] +0000 24 HR venlafaxine 150 MG Extended Rele ase [facility] Capsule +0000 pantoprazole 40 MG Enteric Coated [facility] +0000 pantoprazole 40 MG Enteric Coated [facility] +0000 Sucralfate 1000 MG Oral [facility] +0000 tramadol hydrochloride 50 MG Oral [facility] Problems No information. Procedures date description facility +0000 Diagnosis [facility] +0000 Finding [facility] [id number] General Physician [facility] +0000 [facility] Results/Labs test date author facility value unit interpret ation Result panel 1 (unknown) (no date) (unknown) (unknown) 0.4 % (unkn own) (unknown) (no date) (unknown) (unknown) 1.1 % (unkn own) (unknown) (no date) (unknown) (unknown) 100 /uL (unkn own) (unknown) (no date) (unknown) (unknown) 100 /uL (unkn own) (unknown) (no date) (unknown) (unknown) 12.0 X10 3/uL (unkn own) (unknown) (no date) (unknown) (unknown) 12.4 % (unkn own) (unknown) (no date) (unknown) (unknown) 14.5 g/dL (unkn own) (unknown) (no date) (unknown) (unknown) 32.1 PG (unkn own) (unknown) (no date) (unknown) (unknown) 35.2 % (unkn own) (unknown) (no date) (unknown) (unknown) 373 X10 3/uL (unkn own) (unknown) (no date) (unknown) (unknown) 39.0 % (unkn own) (unknown) (no date) (unknown) (unknown) 4.53 X10 6/uL (unkn own) (unknown) (no date) (unknown) (unknown) 4.7 % (unkn own) (unknown) (no date) (unknown) (unknown) 41.2 % (unkn own) (unknown) (no date) (unknown) (unknown) 4700 /uL (unkn own) (unknown) (no date) (unknown) (unknown) 54.8 % (unkn own) (unknown) (no date) (unknown) (unknown) 600 /uL (unkn own) (unknown) (no date) (unknown) (unknown) 6600 /uL (unkn own) (unknown) (no date) (unknown) (unknown) 91.1 fL (unkn own) Result panel 2 (unknown) (no date) (unknown) (unknown) > 60 mL/min (unkn own) (unknown) (no date) (unknown) (unknown) 0.4 mg/dL (unkn own) (unknown) (no date) (unknown) (unknown) 0.70 mg/dL (unkn own) (unknown) (no date) (unknown) (unknown) 1.3 (units unknown) (unknown) (unknown) (no date) (unknown) (unknown) 10 mg/dL (unkn own) (unknown) (no date) (unknown) (unknown) 108 mmol/L (unkn own) (unknown) (no date) (unknown) (unknown) 117 U/L (unkn own) (unknown) (no date) (unknown) (unknown) 14.3 (units unknown) (unknown) (unknown) (no date) (unknown) (unknown) 140 mmol/L (unkn own) (unknown) (no date) (unknown) (unknown) 17 IU/L (unkn own) (unknown) (no date) (unknown) (unknown) 21 mmol/L (unkn own) (unknown) (no date) (unknown) (unknown) 22 IU/L (unkn own) (unknown) (no date) (unknown) (unknown) 3.5 mmol/L (unkn own) (unknown) (no date) (unknown) (unknown) 3.7 g/dL (unkn own) (unknown) (no date) (unknown) (unknown) 4.8 g/dL (unkn own) (unknown) (no date) (unknown) (unknown) 58 U/L (unkn own) (unknown) (no date) (unknown) (unknown) 8.5 g/dL (unkn own) (unknown) (no date) (unknown) (unknown) 86 mg/dL (unkn own) (unknown) (no date) (unknown) (unknown) 9.5 mg/dL (unkn own) Result panel 3 (unknown) (no (unknown) (unknown) (no value) (units (unk nown) date) unknown) (unknown) (no (unknown) (unknown) Date of Service: (units (unknown) date) 01/09/22 unknown) (unknown) (no (unknown) (unknown) (no value) (units (unk nown) date) unknown) (unknown) (no (unknown) (unknown) 01/09/22 21:05 (units (unknown) date) unknown) (unknown) (no (unknown) (unknown) 01/09/22 23:22 (units (unknown) date) unknown) (unknown) (no (unknown) (unknown) 10 mg PO TID PRN (units (unknown) date) (Reason: muscle unknown) spasm) Qty: 12 0RF (unknown) (no (unknown) (unknown) 2 puff INHALATION (units (unknown) date) Q4-6H PRN (Reason: unknown) shortness of breath) Qty: 18 0RF (unknown) (no (unknown) (unknown) 40 mg PO DAILY (units (unknown) date) Qty: 7 0RF unknown) (unknown) (no (unknown) (unknown) Allergies (units (unkn own) date) unknown) (unknown) (no (unknown) (unknown) ED Orders (units (unkn own) date) unknown) (unknown) (no (unknown) (unknown) Emergency Report (units (unknown) date) unknown) (unknown) (no (unknown) (unknown) [facility] (units (unknown) date) [address] unknown) [place] [id number] (unknown) (no (unknown) (unknown) Lab Results (units (un known) date) unknown) (unknown) (no (unknown) (unknown) Point of Care (units ( unknown) date) Testing unknown) (unknown) (no (unknown) (unknown) Previous Rx's (units ( unknown) date) unknown) (unknown) (no (unknown) (unknown) Urine Dip (units (unkn own) date) unknown) (unknown) (no (unknown) (unknown) Vital Signs - 8 (units (unknown) date) hr unknown) (unknown) (no (unknown) (unknown) (no value) (units (unk nown) date) unknown) (unknown) (no (unknown) (unknown) 01/09/22 01/09/22 (units (unknown) date) Range/Units unknown) (unknown) (no (unknown) (unknown) 21:05 23:22 (units (un known) date) unknown) (unknown) (no (unknown) (unknown) albuterol sulfate (units (unknown) date) 90 mcg/actuation unknown) HFA aerosol inhaler (unknown) (no (unknown) (unknown) cyclobenzaprine (units (unknown) date) 10 mg tablet unknown) (unknown) (no (unknown) (unknown) famotidine 40 mg (units (unknown) date) tablet unknown) (unknown) (no (unknown) (unknown) 01/09/22 (units (unkno wn) date) unknown) (unknown) (no (unknown) (unknown) Medication (units (unk nown) date) Instructions unknown) Recorded (unknown) (no (unknown) (unknown) [id number] (units (unkno wn) date) unknown) (unknown) (no (unknown) (unknown) 01/09/22 20:26 (units (unknown) date) unknown) (unknown) (no (unknown) (unknown) 01/09/22 21:05 (units (unknown) date) unknown) (unknown) (no (unknown) (unknown) 01/09/22 23:22 (units (unknown) date) unknown) (unknown) (no (unknown) (unknown) 20:23 01/09/22 (units (unknown) date) unknown) (unknown) (no (unknown) (unknown) 23:06 (units (unkno wn) date) unknown) (unknown) (no (unknown) (unknown) ALT 17 (<35) (units (unknown) date) IU/L unknown) (unknown) (no (unknown) (unknown) AST 22 (14-36) (units (unknown) date) IU/L unknown) (unknown) (no (unknown) (unknown) Age/Sex: 26 / F (units (unknown) date) unknown) (unknown) (no (unknown) (unknown) Albumin 4.8 (units ( unknown) date) (3.5-5.0) g/dL unknown) (unknown) (no (unknown) (unknown) Albumin/Globulin (units (unknown) date) Ratio 1.3 unknown) (1.0-2.8) (unknown) (no (unknown) (unknown) Alkaline (units (unkno wn) date) Phosphatase 117 unknown) (38-126) U/L (unknown) (no (unknown) (unknown) Allergy/AdvReac (units (unknown) date) Type Severity unknown) Reaction Status Date / Time (unknown) (no (unknown) (unknown) Anxiety (units (unkno wn) date) unknown) (unknown) (no (unknown) (unknown) BUN 10 (7-17) (units (unknown) date) mg/dL unknown) (unknown) (no (unknown) (unknown) BUN/Creatinine (units (unknown) date) Ratio 14.3 unknown) (6-22) (unknown) (no (unknown) (unknown) Baso # (Auto) (units ( unknown) date) 100 (0-100) /uL unknown) (unknown) (no (unknown) (unknown) Baso % (Auto) (units ( unknown) date) 0.4 (0-2) % unknown) (unknown) (no (unknown) (unknown) Bedside Urine (units ( unknown) date) Bilirubin - unknown) Negative (unknown) (no (unknown) (unknown) Bedside Urine (units ( unknown) date) Glucose unknown) Negative (unknown) (no (unknown) (unknown) Bedside Urine (units ( unknown) date) Ketone - unknown) Negative (unknown) (no (unknown) (unknown) Bedside Urine (units ( unknown) date) Leukocytes - unknown) Negative (unknown) (no (unknown) (unknown) Bedside Urine (units ( unknown) date) Nitrite - unknown) Negative (unknown) (no (unknown) (unknown) Bedside Urine (units ( unknown) date) Occult Blood - unknown) Negative (unknown) (no (unknown) (unknown) Bedside Urine (units ( unknown) date) Protein - unknown) Negative (unknown) (no (unknown) (unknown) Bedside Urine (units ( unknown) date) Urobilinogen - unknown) Negative (unknown) (no (unknown) (unknown) Bedside Urine pH (units (unknown) date) 6 unknown) (unknown) (no (unknown) (unknown) Blood Pressure (units (unknown) date) 143/80 H 01/09/22 unknown) 20:23 (unknown) (no (unknown) (unknown) Blood Pressure (units (unknown) date) 143/80 H 129/78 unknown) (unknown) (no (unknown) (unknown) Calcium 9.5 (units ( unknown) date) (8.4-10.2) mg/dL unknown) (unknown) (no (unknown) (unknown) Carbon Dioxide (units (unknown) date) 21 L (22-32) unknown) mmol/L (unknown) (no (unknown) (unknown) Chief complaint: (units (unknown) date) Abdominal Pain unknown) (unknown) (no (unknown) (unknown) Chloride 108 H (units (unknown) date) (98-107) mmol/L unknown) (unknown) (no (unknown) (unknown) Complete Blood (units (unknown) date) Count AUTO DIFF unknown) Stat (unknown) (no (unknown) (unknown) Comprehensive (units ( unknown) date) Metabolic Panel unknown) Stat (unknown) (no (unknown) (unknown) Course (units (unkno wn) date) unknown) (unknown) (no (unknown) (unknown) Creatinine 0.70 (units (unknown) date) (0.52-1.04) unknown) mg/dL (unknown) (no (unknown) (unknown) : 1995 (units (unknown) date) Acct:[id number] unknown) (unknown) (no (unknown) (unknown) Departure (units (unkn own) date) unknown) (unknown) (no (unknown) (unknown) Discharge Plan (units (unknown) date) unknown) (unknown) (no (unknown) (unknown) EKG-12 Lead Stat (units (unknown) date) unknown) (unknown) (no (unknown) (unknown) ER Physician: (units ( unknown) date) Chanell Sahni unknown) (unknown) (no (unknown) (unknown) Eos # (Auto) 100 (units (unknown) date) (0-450) /uL unknown) (unknown) (no (unknown) (unknown) Eos % (Auto) 1.1 (units (unknown) date) L (2-4) % unknown) (unknown) (no (unknown) (unknown) Esterase (units (unkno wn) date) unknown) (unknown) (no (unknown) (unknown) Estimated GFR > (units (unknown) date) 60 (>60) mL/min unknown) (unknown) (no (unknown) (unknown) Exam (units (unkno wn) date) unknown) (unknown) (no (unknown) (unknown) Exercise-induced (units (unknown) date) asthma unknown) (unknown) (no (unknown) (unknown) General (units (unkno wn) date) unknown) (unknown) (no (unknown) (unknown) GenericComposite[ (units (unknown) date) Plt Count 373 unknown) (150-400) X10^3/uL ] (unknown) (no (unknown) (unknown) GenericComposite[ (units (unknown) date) RBC 4.53 unknown) (4.0-5.2) X10^6/uL ] (unknown) (no (unknown) (unknown) GenericComposite[ (units (unknown) date) WBC 12.0 H unknown) (4.5-11.0) X10^3/uL ] (unknown) (no (unknown) (unknown) Globulin 3.7 (units (unknown) date) (1.7-4.1) g/dL unknown) (unknown) (no (unknown) (unknown) Glucose 86 (units (u nknown) date) (70-100) mg/dL unknown) (unknown) (no (unknown) (unknown) HPI - General (units ( unknown) date) Adult unknown) (unknown) (no (unknown) (unknown) Hct 41.2 (units (unkn own) date) (36-46) % unknown) (unknown) (no (unknown) (unknown) Hgb 14.5 (units (unkn own) date) (12.0-16.0) g/dL unknown) (unknown) (no (unknown) (unknown) Initial Vital (units ( unknown) date) Signs unknown) (unknown) (no (unknown) (unknown) Initial Vital (units ( unknown) date) Signs: unknown) (unknown) (no (unknown) (unknown) Lab Data (units (unkno wn) date) unknown) (unknown) (no (unknown) (unknown) Labs: (units (unkno wn) date) unknown) (unknown) (no (unknown) (unknown) Lipase 58 (units (un known) date) (23-300) U/L unknown) (unknown) (no (unknown) (unknown) Lipase Stat (units (un known) date) unknown) (unknown) (no (unknown) (unknown) Lupus (units (unkno wn) date) unknown) (unknown) (no (unknown) (unknown) Lymph # (Auto) (units (unknown) date) 4700 H unknown) (8202-4318) /uL (unknown) (no (unknown) (unknown) Lymph % (Auto) (units (unknown) date) 39.0 (25-40) % unknown) (unknown) (no (unknown) (unknown) MCH 32.1 (units (unkn own) date) (26-34) PG unknown) (unknown) (no (unknown) (unknown) MCHC 35.2 (units (unk nown) date) (30-36) % unknown) (unknown) (no (unknown) (unknown) MCV 91.1 (units (unkn own) date) (80-100) fL unknown) (unknown) (no (unknown) (unknown) Medical Decision (units (unknown) date) Making unknown) (unknown) (no (unknown) (unknown) Medical History (units (unknown) date) (Updated 11/30/21 unknown) @ 00:00 by ) (unknown) (no (unknown) (unknown) Miscellaneous,Doc (units (unknown) date) MD afshan [Primary unknown) Care Provider] - (unknown) (no (unknown) (unknown) Mode of arrival: (units (unknown) date) Ambulatory unknown) (unknown) (no (unknown) (unknown) Reagan # (Auto) (units ( unknown) date) 600 (0-900) /uL unknown) (unknown) (no (unknown) (unknown) Reagan % (Auto) (units ( unknown) date) 4.7 (3-14) % unknown) (unknown) (no (unknown) (unknown) Neut # (Auto) (units ( unknown) date) 6600 (3313-5199) unknown) /uL (unknown) (no (unknown) (unknown) Neut % (Auto) (units ( unknown) date) 54.8 (50-75) % unknown) (unknown) (no (unknown) (unknown) No Action (units (unkn own) date) unknown) (unknown) (no (unknown) (unknown) Ordered: (units (unkno wn) date) unknown) (unknown) (no (unknown) (unknown) Orders (units (unkno wn) date) unknown) (unknown) (no (unknown) (unknown) Patient History (units (unknown) date) unknown) (unknown) (no (unknown) (unknown) Patient: (units (unkno wn) date) [place]sea unknown) MR#: [id number] (unknown) (no (unknown) (unknown) Penicillins (units (un known) date) [PENICILLINS] unknown) Allergy Unknown Verified 11/15/21 14:12 (unknown) (no (unknown) (unknown) Point of care (units ( unknown) date) testing: unknown) (unknown) (no (unknown) (unknown) Potassium 3.5 (units (unknown) date) (3.4-5.1) mmol/L unknown) (unknown) (no (unknown) (unknown) Test (units (unknown) date) Results unknown) Negative (unknown) (no (unknown) (unknown) Prescriptions: (units (unknown) date) unknown) (unknown) (no (unknown) (unknown) Pulse Oximetry (units (unknown) date) 99 01/09/22 unknown) 20:23 (unknown) (no (unknown) (unknown) Pulse Oximetry 99 (units (unknown) date) 97 unknown) (unknown) (no (unknown) (unknown) Pulse Rate 122 H (units (unknown) date) 01/09/22 20:23 unknown) (unknown) (no (unknown) (unknown) Pulse Rate 122 H (units (unknown) date) 118 H unknown) (unknown) (no (unknown) (unknown) RDW 12.4 (units (unkn own) date) (11.6-14.8) % unknown) (unknown) (no (unknown) (unknown) Referrals: (units (unk nown) date) unknown) (unknown) (no (unknown) (unknown) Related Data (units (u nknown) date) unknown) (unknown) (no (unknown) (unknown) Respiratory Rate (units (unknown) date) 22 01/09/22 unknown) 20:23 (unknown) (no (unknown) (unknown) Respiratory Rate (units (unknown) date) 22 18 unknown) (unknown) (no (unknown) (unknown) Result diagrams: (units (unknown) date) unknown) (unknown) (no (unknown) (unknown) Signed By: (units (unk nown) date) unknown) (unknown) (no (unknown) (unknown) Smoking Status: (units (unknown) date) Never smoker unknown) (unknown) (no (unknown) (unknown) Smoking Status: (units (unknown) date) Never smoker unknown) (unknown) (no (unknown) (unknown) Social History (units (unknown) date) (Reviewed 11/15/21 unknown) @ 17:06 by Malorie Art DO) (unknown) (no (unknown) (unknown) Sodium 140 (units (u nknown) date) (137-145) mmol/L unknown) (unknown) (no (unknown) (unknown) Source: patient (units (unknown) date) unknown) (unknown) (no (unknown) (unknown) Stated complaint: (units (unknown) date) ABD pain, black unknown) stool (unknown) (no (unknown) (unknown) Substance Use (units ( unknown) date) Type: marijuana unknown) (unknown) (no (unknown) (unknown) Temperature 97.8 (units (unknown) date) F 01/09/22 20:23 unknown) (unknown) (no (unknown) (unknown) Temperature 97.8 (units (unknown) date) F unknown) (unknown) (no (unknown) (unknown) Time Seen by (units (u nknown) date) Provider: 01/10/22 unknown) 00:47 (unknown) (no (unknown) (unknown) Total Bilirubin (units (unknown) date) 0.4 (0.2-1.3) unknown) mg/dL (unknown) (no (unknown) (unknown) Total Protein (units ( unknown) date) 8.5 H (6.3-8.2) unknown) g/dL (unknown) (no (unknown) (unknown) Urine Specific (units (unknown) date) Moore 1.025 unknown) (unknown) (no (unknown) (unknown) Vital Signs (units (un known) date) unknown) (unknown) (no (unknown) (unknown) Vital signs: (units (u nknown) date) unknown) (unknown) (no (unknown) (unknown) [Embedded Image (units (unknown) date) Not Available] unknown) (unknown) (no (unknown) (unknown) aerosol inhaler (units (unknown) date) gram unknown) (unknown) (no (unknown) (unknown) albuterol sulfate (units (unknown) date) 90 mcg/actuation 2 unknown) puff INHALATION Q4-6H PRN #18 06/05/19 (unknown) (no (unknown) (unknown) alcohol intake (units (unknown) date) frequency: unknown) holidays/special occasions only (unknown) (no (unknown) (unknown) cyclobenzaprine (units (unknown) date) 10 mg tablet 10 mg unknown) PO TID PRN #12 tab 10/18/19 (unknown) (no (unknown) (unknown) doxycycline (units (un known) date) [DOXYCYCLINE] unknown) Allergy Unknown Verified 11/15/21 14:12 (unknown) (no (unknown) (unknown) famotidine 40 mg (units (unknown) date) tablet 40 mg PO unknown) DAILY #7 tab 05/14/21 (unknown) (no (unknown) (unknown) hydrocodone (units (un known) date) [HYDROCODONE] unknown) Allergy Unknown Verified 11/15/21 14:12 (unknown) (no (unknown) (unknown) lidocaine Allergy (units (unknown) date) Verified unknown) 11/15/21 14:12 (unknown) (no (unknown) (unknown) shellfish derived (units (unknown) date) Allergy unknown) Anaphylaxis Verified 11/15/21 14:12 Result panel 4 (unknown) (no (unknown) (unknown) (no value) (units (unk nown) date) unknown) (unknown) (no (unknown) (unknown) (no value) (units (unk nown) date) unknown) (unknown) (no (unknown) (unknown) [facility] [address] [place] [address] (units (unknown) date) unknown) (unknown) (no (unknown) (unknown) [place], [place] (units ( unknown) date) [id number] unknown) (unknown) (no (unknown) (unknown) CT Scan Report (units (unknown) date) unknown) (unknown) (no (unknown) (unknown) [facility] (units (unknown) date) unknown) (unknown) (no (unknown) (unknown) Signed (units (unkno wn) date) unknown) (unknown) (no (unknown) (unknown) (no value) (units (unk nown) date) unknown) (unknown) (no (unknown) (unknown) 01/10/22 (units (unkno wn) date) unknown) (unknown) (no (unknown) (unknown) 1. Mild stool (units ( unknown) date) distention within unknown) the ascending and transverse colon as well as (unknown) (no (unknown) (unknown) 14:03. (units (unkno wn) date) unknown) (unknown) (no (unknown) (unknown) 2. 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 (unknown) (no (unknown) (unknown) 3. Hypervascular (units (unknown) date) lesion within the unknown) right hepatic lobe is suggestive of a (unknown) (no (unknown) (unknown) ABDOMEN: (units (unkno wn) date) unknown) (unknown) (no (unknown) (unknown) Abdominal Nodes: (units (unknown) date) No retroperitoneal unknown) or mesenteric adenopathy by size criteria. (unknown) (no (unknown) (unknown) Adrenal Glands: (units (unknown) date) No adrenal unknown) nodules. (unknown) (no (unknown) (unknown) After the (units (unkn own) date) administration of unknown) IV contrast, axial sections were acquired from the (unknown) (no (unknown) (unknown) Approved by: (units (u nknown) date) Alex Patiño, unknown) Richard on 01/10/2022 at 2:03 (unknown) (no (unknown) (unknown) Biliary ducts: (units (unknown) date) No biliary ductal unknown) dilatation. (unknown) (no (unknown) (unknown) Bladder: (units (unkno wn) date) Unremarkable. unknown) (unknown) (no (unknown) (unknown) Bones: (units (unkno wn) date) Visualized osseous unknown) structures demonstrate no suspicious focal lesions. (unknown) (no (unknown) (unknown) COMPARISON: (units (un known) date) [facility] unknown) [facility], CT, CT ABDOMEN PELVIS WITH CONTRAST, (unknown) (no (unknown) (unknown) Dictated by: (units (u nknown) date) Alex Patiño, unknown) Richard on 01/10/2022 at 1:58 (unknown) (no (unknown) (unknown) FINDINGS: (units (unkn own) date) unknown) (unknown) (no (unknown) (unknown) Gallbladder: (units (u nknown) date) Within normal unknown) limits without calcified gallstones. (unknown) (no (unknown) (unknown) Heart: Heart is (units (unknown) date) normal in size. unknown) (unknown) (no (unknown) (unknown) IMPRESSION: (units (un known) date) unknown) (unknown) (no (unknown) (unknown) INDICATIONS: (units (u nknown) date) Right lower unknown) quadrant pain increasing for 4 days (unknown) (no (unknown) (unknown) Image quality: (units (unknown) date) Excellent. unknown) (unknown) (no (unknown) (unknown) Kidneys and (units (un known) date) Ureters: No unknown) hydronephrosis. (unknown) (no (unknown) (unknown) Liver: There is (units (unknown) date) an oval unknown) hypervascular lesion redemonstrated within the right (unknown) (no (unknown) (unknown) Lung bases: (units (un known) date) Unremarkable. unknown) (unknown) (no (unknown) (unknown) Mild stool (units (unk nown) date) distention within unknown) the ascending and transverse colon as well as (unknown) (no (unknown) (unknown) Miscellaneous: No (units (unknown) date) inguinal hernias unknown) are seen. (unknown) (no (unknown) (unknown) PELVIS: (units (unkno wn) date) unknown) (unknown) (no (unknown) (unknown) Pancreas: (units (unkn own) date) Unremarkable. unknown) (unknown) (no (unknown) (unknown) Pelvic Nodes: No (units (unknown) date) enlarged lymph unknown) nodes. (unknown) (no (unknown) (unknown) Pelvic Organs: (units (unknown) date) Unremarkable. unknown) (unknown) (no (unknown) (unknown) Peritoneum: No (units (unknown) date) abnormal unknown) intraperitoneal fluid. No free air. (unknown) (no (unknown) (unknown) Spleen: Normal (units (unknown) date) in size. unknown) (unknown) (no (unknown) (unknown) Stomach and (units (un known) date) Bowel: Stomach, unknown) small bowel loops, and colon are normal in caliber (unknown) (no (unknown) (unknown) TECHNIQUE: (units (unk nown) date) unknown) (unknown) (no (unknown) (unknown) There is colonic (units (unknown) date) diverticulosis unknown) without acute diverticulitis. (unknown) (no (unknown) (unknown) Ventral Wall: (units ( unknown) date) No hernia. unknown) (unknown) (no (unknown) (unknown) Vessels: Aorta (units (unknown) date) and inferior vena unknown) cava are normal in size. (unknown) (no (unknown) (unknown) and/or kV (units (unkn own) date) according to unknown) patient size. (unknown) (no (unknown) (unknown) distal ileum are (units (unknown) date) suggestive of unknown) constipation. No definite evidence of bowel (unknown) (no (unknown) (unknown) distal small (units (u nknown) date) bowel are unknown) suggestive of constipation. No definite evidence of (unknown) (no (unknown) (unknown) dose reduction, (units (unknown) date) the following was unknown) used: automated exposure control, adjustment (unknown) (no (unknown) (unknown) further (units (unkno wn) date) evaluation. unknown) (unknown) (no (unknown) (unknown) inferior aspect (units (unknown) date) of the lesion. unknown) Findings are suggestive of a hemangioma. (unknown) (no (unknown) (unknown) is incompletely (units (unknown) date) characterized. unknown) Consider follow-up nonemergent hepatic protocol (unknown) (no (unknown) (unknown) lobe, measuring (units (unknown) date) up to unknown) approximately 1.7 cm which is similar in size compared to (unknown) (no (unknown) (unknown) obstruction. (units (u nknown) date) unknown) (unknown) (no (unknown) (unknown) study. There is (units (unknown) date) suggestion of unknown) discontinuous peripheral hypervascular (unknown) (no (unknown) (unknown) thickness. There (units (unknown) date) are pericecal unknown) surgical clips likely related to prior (unknown) (no (unknown) (unknown) to the pubic (units (u nknown) date) symphysis. unknown) Coronal and sagittal reformats were performed. For (unknown) (no (unknown) (unknown) [id number] (units (unkno wn) date) unknown) (unknown) (no (unknown) (unknown) 01/03/2021, (units (unk nown) date) unknown) (unknown) (no (unknown) (unknown) Accession Number: (units (unknown) date) [id number] unknown) (unknown) (no (unknown) (unknown) Age/Sex: 26 / F (units (unknown) date) Date of Service: unknown) (unknown) (no (unknown) (unknown) : 1995 (units (unknown) date) Acct:[id number] unknown) (unknown) (no (unknown) (unknown) Loc: ED (units (unkno wn) date) unknown) (unknown) (no (unknown) (unknown) MRI for (units (unkno wn) date) unknown) (unknown) (no (unknown) (unknown) Ordering (units (unkno wn) date) Provider: unknown) Chanell Sahni MD (unknown) (no (unknown) (unknown) PROCEDURE: CT (units (unknown) date) ABDOMEN PELVIS W unknown) CON (unknown) (no (unknown) (unknown) Patient: (units (unkno wn) date) Chelsea Lebron M unknown) MR#: [id number] (unknown) (no (unknown) (unknown) Procedure: CT (units ( unknown) date) abdomen pelvis w unknown) con (unknown) (no (unknown) (unknown) and wall (units (unkno wn) date) unknown) (unknown) (no (unknown) (unknown) appendectomy. (units ( unknown) date) unknown) (unknown) (no (unknown) (unknown) bowel (units (unkno wn) date) unknown) (unknown) (no (unknown) (unknown) enhancement in (units (unknown) date) the unknown) (unknown) (no (unknown) (unknown) hemangioma but (units (unknown) date) unknown) (unknown) (no (unknown) (unknown) hepatic (units (unkno wn) date) unknown) (unknown) (no (unknown) (unknown) lung bases (units (unk nown) date) unknown) (unknown) (no (unknown) (unknown) obstruction. (units (u nknown) date) unknown) (unknown) (no (unknown) (unknown) of mA (units (unkno wn) date) unknown) (unknown) (no (unknown) (unknown) radiation (units (unkn own) date) unknown) (unknown) (no (unknown) (unknown) the prior (units (unkn own) date) unknown) (unknown) (no (unknown) (unknown) within the (units (unk nown) date) unknown) Result panel 5 (unknown) (no (unknown) (unknown) (no value) (units (unk nown) date) unknown) (unknown) (no (unknown) (unknown) Date of Service: (units (unknown) date) 01/09/22 unknown) (unknown) (no (unknown) (unknown) (no value) (units (unk nown) date) unknown) (unknown) (no (unknown) (unknown) 01/09/22 21:05 (units (unknown) date) unknown) (unknown) (no (unknown) (unknown) 01/09/22 23:22 (units (unknown) date) unknown) (unknown) (no (unknown) (unknown) 10 mg PO TID PRN (units (unknown) date) (Reason: muscle unknown) spasm) Qty: 12 0RF (unknown) (no (unknown) (unknown) 2 puff INHALATION (units (unknown) date) Q4-6H PRN (Reason: unknown) shortness of breath) Qty: 18 0RF (unknown) (no (unknown) (unknown) 40 mg PO DAILY (units (unknown) date) Qty: 7 0RF unknown) (unknown) (no (unknown) (unknown) Allergies (units (unkn own) date) unknown) (unknown) (no (unknown) (unknown) ED Orders (units (unkn own) date) unknown) (unknown) (no (unknown) (unknown) Emergency Report (units (unknown) date) unknown) (unknown) (no (unknown) (unknown) [facility] (units (unknown) date) [address] [place] [address] Street unknown) [place] [address] (unknown) (no (unknown) (unknown) Lab Results (units (un known) date) unknown) (unknown) (no (unknown) (unknown) Point of Care (units ( unknown) date) Testing unknown) (unknown) (no (unknown) (unknown) Previous Rx's (units ( unknown) date) unknown) (unknown) (no (unknown) (unknown) Urine Dip (units (unkn own) date) unknown) (unknown) (no (unknown) (unknown) Vital Signs - 8 (units (unknown) date) hr unknown) (unknown) (no (unknown) (unknown) (no value) (units (unk nown) date) unknown) (unknown) (no (unknown) (unknown) 01/09/22 01/09/22 (units (unknown) date) Range/Units unknown) (unknown) (no (unknown) (unknown) 21:05 23:22 (units (un known) date) unknown) (unknown) (no (unknown) (unknown) albuterol sulfate (units (unknown) date) 90 mcg/actuation unknown) HFA aerosol inhaler (unknown) (no (unknown) (unknown) cyclobenzaprine (units (unknown) date) 10 mg tablet unknown) (unknown) (no (unknown) (unknown) famotidine 40 mg (units (unknown) date) tablet unknown) (unknown) (no (unknown) (unknown) 01/09/22 (units (unkno wn) date) unknown) (unknown) (no (unknown) (unknown) Full and (units (unkno wn) date) symmetrical air unknown) movement (unknown) (no (unknown) (unknown) Medication (units (unk nown) date) Instructions unknown) Recorded (unknown) (no (unknown) (unknown) She notes that (units (unknown) date) today she is unknown) having some black stools. She states that at 1 (unknown) (no (unknown) (unknown) [id number] (units (unkno wn) date) unknown) (unknown) (no (unknown) (unknown) 01/09/22 20:26 (units (unknown) date) unknown) (unknown) (no (unknown) (unknown) 01/09/22 21:05 (units (unknown) date) unknown) (unknown) (no (unknown) (unknown) 01/09/22 23:22 (units (unknown) date) unknown) (unknown) (no (unknown) (unknown) 20:23 01/09/22 (units (unknown) date) unknown) (unknown) (no (unknown) (unknown) 23:06 (units (unkno wn) date) unknown) (unknown) (no (unknown) (unknown) 26-year-old woman (units (unknown) date) with a history of unknown) lupus, fibromyalgia, colon polyps with the (unknown) (no (unknown) (unknown) ALT 17 (<35) (units (unknown) date) IU/L unknown) (unknown) (no (unknown) (unknown) AST 22 (14-36) (units (unknown) date) IU/L unknown) (unknown) (no (unknown) (unknown) Abdomen: Soft, (units (unknown) date) moderate unknown) tenderness in the right lower quadrant with mild (unknown) (no (unknown) (unknown) Age/Sex: 26 / F (units (unknown) date) unknown) (unknown) (no (unknown) (unknown) Albumin 4.8 (units ( unknown) date) (3.5-5.0) g/dL unknown) (unknown) (no (unknown) (unknown) Albumin/Globulin (units (unknown) date) Ratio 1.3 unknown) (1.0-2.8) (unknown) (no (unknown) (unknown) Alkaline (units (unkno wn) date) Phosphatase 117 unknown) (38-126) U/L (unknown) (no (unknown) (unknown) Allergy/AdvReac (units (unknown) date) Type Severity unknown) Reaction Status Date / Time (unknown) (no (unknown) (unknown) Anxiety (units (unkno wn) date) unknown) (unknown) (no (unknown) (unknown) BUN 10 (7-17) (units (unknown) date) mg/dL unknown) (unknown) (no (unknown) (unknown) BUN/Creatinine (units (unknown) date) Ratio 14.3 unknown) (6-22) (unknown) (no (unknown) (unknown) Baso # (Auto) (units ( unknown) date) 100 (0-100) /uL unknown) (unknown) (no (unknown) (unknown) Baso % (Auto) (units ( unknown) date) 0.4 (0-2) % unknown) (unknown) (no (unknown) (unknown) Bedside Urine (units ( unknown) date) Bilirubin - unknown) Negative (unknown) (no (unknown) (unknown) Bedside Urine (units ( unknown) date) Glucose unknown) Negative (unknown) (no (unknown) (unknown) Bedside Urine (units ( unknown) date) Ketone - unknown) Negative (unknown) (no (unknown) (unknown) Bedside Urine (units ( unknown) date) Leukocytes - unknown) Negative (unknown) (no (unknown) (unknown) Bedside Urine (units ( unknown) date) Nitrite - unknown) Negative (unknown) (no (unknown) (unknown) Bedside Urine (units ( unknown) date) Occult Blood - unknown) Negative (unknown) (no (unknown) (unknown) Bedside Urine (units ( unknown) date) Protein - unknown) Negative (unknown) (no (unknown) (unknown) Bedside Urine (units ( unknown) date) Urobilinogen - unknown) Negative (unknown) (no (unknown) (unknown) Bedside Urine pH (units (unknown) date) 6 unknown) (unknown) (no (unknown) (unknown) Blood Pressure (units (unknown) date) 143/80 H 01/09/22 unknown) 20:23 (unknown) (no (unknown) (unknown) Blood Pressure (units (unknown) date) 143/80 H 129/78 unknown) (unknown) (no (unknown) (unknown) Calcium 9.5 (units ( unknown) date) (8.4-10.2) mg/dL unknown) (unknown) (no (unknown) (unknown) Carbon Dioxide (units (unknown) date) 21 L (22-32) unknown) mmol/L (unknown) (no (unknown) (unknown) Cardiac: Regular (units (unknown) date) rate and rhythm no unknown) murmurs no bruits (unknown) (no (unknown) (unknown) Chief complaint: (units (unknown) date) Abdominal Pain unknown) (unknown) (no (unknown) (unknown) Chloride 108 H (units (unknown) date) (98-107) mmol/L unknown) (unknown) (no (unknown) (unknown) Complete Blood (units (unknown) date) Count AUTO DIFF unknown) Stat (unknown) (no (unknown) (unknown) Comprehensive (units ( unknown) date) Metabolic Panel unknown) Stat (unknown) (no (unknown) (unknown) Course (units (unkno wn) date) unknown) (unknown) (no (unknown) (unknown) Creatinine 0.70 (units (unknown) date) (0.52-1.04) unknown) mg/dL (unknown) (no (unknown) (unknown) : 1995 (units (unknown) date) Acct:[id number] unknown) (unknown) (no (unknown) (unknown) Departure (units (unkn own) date) unknown) (unknown) (no (unknown) (unknown) Discharge Plan (units (unknown) date) unknown) (unknown) (no (unknown) (unknown) EKG-12 Lead Stat (units (unknown) date) unknown) (unknown) (no (unknown) (unknown) ER Physician: (units ( unknown) date) Chanell Sahni L unknown) (unknown) (no (unknown) (unknown) Eos # (Auto) 100 (units (unknown) date) (0-450) /uL unknown) (unknown) (no (unknown) (unknown) Eos % (Auto) 1.1 (units (unknown) date) L (2-4) % unknown) (unknown) (no (unknown) (unknown) Esterase (units (unkno wn) date) unknown) (unknown) (no (unknown) (unknown) Estimated GFR > (units (unknown) date) 60 (>60) mL/min unknown) (unknown) (no (unknown) (unknown) Exam (units (unkno wn) date) unknown) (unknown) (no (unknown) (unknown) Exercise-induced (units (unknown) date) asthma unknown) (unknown) (no (unknown) (unknown) Extremities: No (units (unknown) date) trauma, well unknown) perfused (unknown) (no (unknown) (unknown) General (units (unkno wn) date) unknown) (unknown) (no (unknown) (unknown) General: Healthy (units (unknown) date) appearing, unknown) somewhat anxious and in pain but Able to give a (unknown) (no (unknown) (unknown) GenericComposite[ (units (unknown) date) Plt Count 373 unknown) (150-400) X10^3/uL ] (unknown) (no (unknown) (unknown) GenericComposite[ (units (unknown) date) RBC 4.53 unknown) (4.0-5.2) X10^6/uL ] (unknown) (no (unknown) (unknown) GenericComposite[ (units (unknown) date) WBC 12.0 H unknown) (4.5-11.0) X10^3/uL ] (unknown) (no (unknown) (unknown) Globulin 3.7 (units (unknown) date) (1.7-4.1) g/dL unknown) (unknown) (no (unknown) (unknown) Glucose 86 (units (u nknown) date) (70-100) mg/dL unknown) (unknown) (no (unknown) (unknown) HEENT: Moist (units ( unknown) date) mucous membranes, unknown) normal sclera with reactive pupils, (unknown) (no (unknown) (unknown) HPI - General (units ( unknown) date) Adult unknown) (unknown) (no (unknown) (unknown) HPI narrative: (units (unknown) date) unknown) (unknown) (no (unknown) (unknown) Hct 41.2 (units (unkn own) date) (36-46) % unknown) (unknown) (no (unknown) (unknown) Hgb 14.5 (units (unkn own) date) (12.0-16.0) g/dL unknown) (unknown) (no (unknown) (unknown) History of (units (unk nown) date) Present Illness unknown) (unknown) (no (unknown) (unknown) Initial Vital (units ( unknown) date) Signs unknown) (unknown) (no (unknown) (unknown) Initial Vital (units ( unknown) date) Signs: unknown) (unknown) (no (unknown) (unknown) Lab Data (units (unkno wn) date) unknown) (unknown) (no (unknown) (unknown) Labs: (units (unkno wn) date) unknown) (unknown) (no (unknown) (unknown) Lipase 58 (units (un known) date) (23-300) U/L unknown) (unknown) (no (unknown) (unknown) Lipase Stat (units (un known) date) unknown) (unknown) (no (unknown) (unknown) Lupus (units (unkno wn) date) unknown) (unknown) (no (unknown) (unknown) Lymph # (Auto) (units (unknown) date) 4700 H unknown) (9913-0122) /uL (unknown) (no (unknown) (unknown) Lymph % (Auto) (units (unknown) date) 39.0 (25-40) % unknown) (unknown) (no (unknown) (unknown) MCH 32.1 (units (unkn own) date) (26-34) PG unknown) (unknown) (no (unknown) (unknown) MCHC 35.2 (units (unk nown) date) (30-36) % unknown) (unknown) (no (unknown) (unknown) MCV 91.1 (units (unkn own) date) (80-100) fL unknown) (unknown) (no (unknown) (unknown) Medical Decision (units (unknown) date) Making unknown) (unknown) (no (unknown) (unknown) Medical History (units (unknown) date) (Reviewed 01/10/22 unknown) @ 00:56 by Chanell Sahni MD) (unknown) (no (unknown) (unknown) Miscellaneous,Doc (units (unknown) date) MD afshan [Primary unknown) Care Provider] - (unknown) (no (unknown) (unknown) Mode of arrival: (units (unknown) date) Ambulatory unknown) (unknown) (no (unknown) (unknown) Reagan # (Auto) (units ( unknown) date) 600 (0-900) /uL unknown) (unknown) (no (unknown) (unknown) Reagan % (Auto) (units ( unknown) date) 4.7 (3-14) % unknown) (unknown) (no (unknown) (unknown) Narrative: (units (unk nown) date) unknown) (unknown) (no (unknown) (unknown) Neurologic: (units (un known) date) Grossly unknown) neurologically intact with no obvious asymmetries or (unknown) (no (unknown) (unknown) Neut # (Auto) (units ( unknown) date) 6600 (0370-8010) unknown) /uL (unknown) (no (unknown) (unknown) Neut % (Auto) (units ( unknown) date) 54.8 (50-75) % unknown) (unknown) (no (unknown) (unknown) No Action (units (unkn own) date) unknown) (unknown) (no (unknown) (unknown) Ordered: (units (unkno wn) date) unknown) (unknown) (no (unknown) (unknown) Orders (units (unkno wn) date) unknown) (unknown) (no (unknown) (unknown) Patient History (units (unknown) date) unknown) (unknown) (no (unknown) (unknown) Patient: (units (unkno wn) date) Chelsea Lebron unknown) MR#: [id number] (unknown) (no (unknown) (unknown) Penicillins (units (un known) date) [PENICILLINS] unknown) Allergy Unknown Verified 11/15/21 14:12 (unknown) (no (unknown) (unknown) Point of care (units ( unknown) date) testing: unknown) (unknown) (no (unknown) (unknown) Potassium 3.5 (units (unknown) date) (3.4-5.1) mmol/L unknown) (unknown) (no (unknown) (unknown) Test (units (unknown) date) Results unknown) Negative (unknown) (no (unknown) (unknown) Prescriptions: (units (unknown) date) unknown) (unknown) (no (unknown) (unknown) Psych: (units (unkno wn) date) Cooperative, unknown) appropriate insight and affect (unknown) (no (unknown) (unknown) Pulse Oximetry (units (unknown) date) 99 01/09/22 unknown) 20:23 (unknown) (no (unknown) (unknown) Pulse Oximetry 99 (units (unknown) date) 97 unknown) (unknown) (no (unknown) (unknown) Pulse Rate 122 H (units (unknown) date) 01/09/22 20:23 unknown) (unknown) (no (unknown) (unknown) Pulse Rate 122 H (units (unknown) date) 118 H unknown) (unknown) (no (unknown) (unknown) RDW 12.4 (units (unkn own) date) (11.6-14.8) % unknown) (unknown) (no (unknown) (unknown) Referrals: (units (unk nown) date) unknown) (unknown) (no (unknown) (unknown) Related Data (units (u nknown) date) unknown) (unknown) (no (unknown) (unknown) Remainder of (units (u nknown) date) complete review of unknown) systems is otherwise unremarkable except for (unknown) (no (unknown) (unknown) Respiratory Rate (units (unknown) date) 22 01/09/22 unknown) 20:23 (unknown) (no (unknown) (unknown) Respiratory Rate (units (unknown) date) 22 18 unknown) (unknown) (no (unknown) (unknown) Respiratory: (units (u nknown) date) Lungs are clear to unknown) auscultation, no wheezing no rales no rhonchi. (unknown) (no (unknown) (unknown) Result diagrams: (units (unknown) date) unknown) (unknown) (no (unknown) (unknown) Review of Systems (units (unknown) date) unknown) (unknown) (no (unknown) (unknown) Signed By: (units (unk nown) date) unknown) (unknown) (no (unknown) (unknown) Skin: Warm and (units (unknown) date) dry, no rashes unknown) (unknown) (no (unknown) (unknown) Smoking Status: (units (unknown) date) Never smoker unknown) (unknown) (no (unknown) (unknown) Smoking Status: (units (unknown) date) Never smoker unknown) (unknown) (no (unknown) (unknown) Social History (units (unknown) date) (Reviewed 01/10/22 unknown) @ 00:56 by Chanell Sahni MD) (unknown) (no (unknown) (unknown) Sodium 140 (units (u nknown) date) (137-145) mmol/L unknown) (unknown) (no (unknown) (unknown) Source: patient (units (unknown) date) unknown) (unknown) (no (unknown) (unknown) Stated complaint: (units (unknown) date) ABD pain, black unknown) stool (unknown) (no (unknown) (unknown) Substance Use (units ( unknown) date) Type: marijuana unknown) (unknown) (no (unknown) (unknown) Temperature 97.8 (units (unknown) date) F 01/09/22 20:23 unknown) (unknown) (no (unknown) (unknown) Temperature 97.8 (units (unknown) date) F unknown) (unknown) (no (unknown) (unknown) Time Seen by (units (u nknown) date) Provider: 01/10/22 unknown) 00:47 (unknown) (no (unknown) (unknown) Total Bilirubin (units (unknown) date) 0.4 (0.2-1.3) unknown) mg/dL (unknown) (no (unknown) (unknown) Total Protein (units ( unknown) date) 8.5 H (6.3-8.2) unknown) g/dL (unknown) (no (unknown) (unknown) Urine Specific (units (unknown) date) Moore 1.025 unknown) (unknown) (no (unknown) (unknown) Vital Signs (units (un known) date) unknown) (unknown) (no (unknown) (unknown) Vital signs: (units (u nknown) date) unknown) (unknown) (no (unknown) (unknown) [Embedded Image (units (unknown) date) Not Available] unknown) (unknown) (no (unknown) (unknown) abnormalities (units ( unknown) date) unknown) (unknown) (no (unknown) (unknown) aerosol inhaler (units (unknown) date) gram unknown) (unknown) (no (unknown) (unknown) albuterol sulfate (units (unknown) date) 90 mcg/actuation 2 unknown) puff INHALATION Q4-6H PRN #18 06/05/19 (unknown) (no (unknown) (unknown) alcohol intake (units (unknown) date) frequency: unknown) holidays/special occasions only (unknown) (no (unknown) (unknown) control. (units (unknown) date) She is not unknown) based on urine test today. (unknown) (no (unknown) (unknown) complete and (units (u nknown) date) coherent history. unknown) Well-nourished well-developed (unknown) (no (unknown) (unknown) cough, (units (unkno wn) date) palpitations, unknown) headache. She currently is menstruating and not using (unknown) (no (unknown) (unknown) cyclobenzaprine (units (unknown) date) 10 mg tablet 10 mg unknown) PO TID PRN #12 tab 10/18/19 (unknown) (no (unknown) (unknown) days of (units (unkno wn) date) increasing right unknown) lower quadrant abdominal pain. She describes night (unknown) (no (unknown) (unknown) doxycycline (units (un known) date) [DOXYCYCLINE] unknown) Allergy Unknown Verified 11/15/21 14:12 (unknown) (no (unknown) (unknown) famotidine 40 mg (units (unknown) date) tablet 40 mg PO unknown) DAILY #7 tab 05/14/21 (unknown) (no (unknown) (unknown) hydrocodone (units (un known) date) [HYDROCODONE] unknown) Allergy Unknown Verified 11/15/21 14:12 (unknown) (no (unknown) (unknown) lidocaine Allergy (units (unknown) date) Verified unknown) 11/15/21 14:12 (unknown) (no (unknown) (unknown) quadrants, good (units (unknown) date) bowel tones, no unknown) flank pain (unknown) (no (unknown) (unknown) rebound and mild (units (unknown) date) amount of unknown) tenderness in the right upper quadrant left lower (unknown) (no (unknown) (unknown) recent (units (unkno wn) date) colonoscopy, unknown) ovarian cysts, recurrent episodes of nausea presents with 4 (unknown) (no (unknown) (unknown) shellfish derived (units (unknown) date) Allergy unknown) Anaphylaxis Verified 11/15/21 14:12 (unknown) (no (unknown) (unknown) sweats but no (units (u nknown) date) overt fevers. She unknown) has had a moderate amount of emesis not bloody. (unknown) (no (unknown) (unknown) tear and had (units (u nknown) date) black stool at unknown) that point. She is not complaining of chest pain, (unknown) (no (unknown) (unknown) that included in (units (unknown) date) the HPI. unknown) (unknown) (no (unknown) (unknown) time she had (units (un known) date) vomited heart unknown) enough to cause as esophageal bleeding and esophageal Result panel 6 (unknown) (no (unknown) (unknown) (no value) (units (unk nown) date) unknown) (unknown) (no (unknown) (unknown) Radiologist's (units ( unknown) date) Impression: unknown) (unknown) (no (unknown) (unknown) Date of Service: (units (unknown) date) 01/09/22 unknown) (unknown) (no (unknown) (unknown) (no value) (units (unk nown) date) unknown) (unknown) (no (unknown) (unknown) 01/09/22 21:05 (units (unknown) date) unknown) (unknown) (no (unknown) (unknown) 01/09/22 23:22 (units (unknown) date) unknown) (unknown) (no (unknown) (unknown) 10 mg PO TID PRN (units (unknown) date) (Reason: muscle unknown) spasm) Qty: 12 0RF (unknown) (no (unknown) (unknown) 2 puff INHALATION (units (unknown) date) Q4-6H PRN (Reason: unknown) shortness of breath) Qty: 18 0RF (unknown) (no (unknown) (unknown) 40 mg PO DAILY (units (unknown) date) Qty: 7 0RF unknown) (unknown) (no (unknown) (unknown) Allergies (units (unkn own) date) unknown) (unknown) (no (unknown) (unknown) Documented by: (units (unknown) date) [email or web address] unknown) (unknown) (no (unknown) (unknown) ED Orders (units (unkn own) date) unknown) (unknown) (no (unknown) (unknown) Emergency Report (units (unknown) date) unknown) (unknown) (no (unknown) (unknown) [facility] (units (unknown) date) [address] unknown) [place] [address] (unknown) (no (unknown) (unknown) Lab Results (units (un known) date) unknown) (unknown) (no (unknown) (unknown) Last Admin: (units (un known) date) 01/10/22 01:03 unknown) Dose: 0.5 mg (unknown) (no (unknown) (unknown) Last Admin: (units (un known) date) 01/10/22 01:03 unknown) Dose: 1,000 mls/hr (unknown) (no (unknown) (unknown) Last Admin: (units (un known) date) 01/10/22 01:03 unknown) Dose: 4 mg (unknown) (no (unknown) (unknown) PRN Reason: Pain, (units (unknown) date) unknown) (unknown) (no (unknown) (unknown) Point of Care (units ( unknown) date) Testing unknown) (unknown) (no (unknown) (unknown) Previous Rx's (units ( unknown) date) unknown) (unknown) (no (unknown) (unknown) Stop: 01/10/22 (units (unknown) date) 00:58 unknown) (unknown) (no (unknown) (unknown) Stop: 01/10/22 (units (unknown) date) 01:56 unknown) (unknown) (no (unknown) (unknown) Urine Dip (units (unkn own) date) unknown) (unknown) (no (unknown) (unknown) Vital Signs - 8 (units (unknown) date) hr unknown) (unknown) (no (unknown) (unknown) (no value) (units (unk nown) date) unknown) (unknown) (no (unknown) (unknown) 01/09/22 01/09/22 (units (unknown) date) Range/Units unknown) (unknown) (no (unknown) (unknown) 21:05 23:22 (units (un known) date) unknown) (unknown) (no (unknown) (unknown) She is status (units ( unknown) date) post appendectomy unknown) she is not currently . She had a mild (unknown) (no (unknown) (unknown) albuterol sulfate (units (unknown) date) 90 mcg/actuation unknown) HFA aerosol inhaler (unknown) (no (unknown) (unknown) cyclobenzaprine (units (unknown) date) 10 mg tablet unknown) (unknown) (no (unknown) (unknown) famotidine 40 mg (units (unknown) date) tablet unknown) (unknown) (no (unknown) (unknown) 01/09/22 (units (unkno wn) date) unknown) (unknown) (no (unknown) (unknown) 01/10/22 (units (unkno wn) date) unknown) (unknown) (no (unknown) (unknown) Full and (units (unkno wn) date) symmetrical air unknown) movement (unknown) (no (unknown) (unknown) Medication (units (unk nown) date) Instructions unknown) Recorded (unknown) (no (unknown) (unknown) She notes that (units (unknown) date) today she is unknown) having some black stools. She states that at 1 (unknown) (no (unknown) (unknown) leukocytosis mild (units (unknown) date) tenderness in the unknown) right lower quadrant CT scan suggests no (unknown) (no (unknown) (unknown) 00:50 01/10/22 (units (unknown) date) unknown) (unknown) (no (unknown) (unknown) 01:00 (units (unkno wn) date) unknown) (unknown) (no (unknown) (unknown) 01:30 01/10/22 (units (unknown) date) unknown) (unknown) (no (unknown) (unknown) 02:00 (units (unkno wn) date) unknown) (unknown) (no (unknown) (unknown) [id number] (units (unkno wn) date) unknown) (unknown) (no (unknown) (unknown) 01/09/22 20:26 (units (unknown) date) unknown) (unknown) (no (unknown) (unknown) 01/09/22 21:05 (units (unknown) date) unknown) (unknown) (no (unknown) (unknown) 01/09/22 23:22 (units (unknown) date) unknown) (unknown) (no (unknown) (unknown) 01/10/22 00:57 (units (unknown) date) unknown) (unknown) (no (unknown) (unknown) 1. Mild stool (units ( unknown) date) distention within unknown) the ascending and transverse colon as well as (unknown) (no (unknown) (unknown) 2. 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 (unknown) (no (unknown) (unknown) 20:23 01/09/22 (units (unknown) date) unknown) (unknown) (no (unknown) (unknown) 23:05 01/09/22 (units (unknown) date) unknown) (unknown) (no (unknown) (unknown) 23:06 (units (unkno wn) date) unknown) (unknown) (no (unknown) (unknown) 23:30 01/10/22 (units (unknown) date) unknown) (unknown) (no (unknown) (unknown) 26-year-old woman (units (unknown) date) with 4 days of unknown) increasing right lower quadrant abdominal pain. (unknown) (no (unknown) (unknown) 26-year-old woman (units (unknown) date) with a history of unknown) lupus, fibromyalgia, colon polyps with the (unknown) (no (unknown) (unknown) 3. Hypervascular (units (unknown) date) lesion within the unknown) right hepatic lobe is suggestive of a (unknown) (no (unknown) (unknown) ? (units (unkno wn) date) unknown) (unknown) (no (unknown) (unknown) ABDOMEN: (units (unkno wn) date) unknown) (unknown) (no (unknown) (unknown) ALT 17 (<35) (units (unknown) date) IU/L unknown) (unknown) (no (unknown) (unknown) AST 22 (14-36) (units (unknown) date) IU/L unknown) (unknown) (no (unknown) (unknown) Abdomen: Soft, (units (unknown) date) moderate unknown) tenderness in the right lower quadrant with mild (unknown) (no (unknown) (unknown) Abdominal Nodes:? (units (unknown) date) No retroperitoneal unknown) or mesenteric adenopathy by size criteria.? (unknown) (no (unknown) (unknown) Adrenal Glands:? (units (unknown) date) No adrenal unknown) nodules.? ? (unknown) (no (unknown) (unknown) Age/Sex: 26 / F (units (unknown) date) unknown) (unknown) (no (unknown) (unknown) Albumin 4.8 (units ( unknown) date) (3.5-5.0) g/dL unknown) (unknown) (no (unknown) (unknown) Albumin/Globulin (units (unknown) date) Ratio 1.3 unknown) (1.0-2.8) (unknown) (no (unknown) (unknown) Alkaline (units (unkno wn) date) Phosphatase 117 unknown) (38-126) U/L (unknown) (no (unknown) (unknown) Allergy/AdvReac (units (unknown) date) Type Severity unknown) Reaction Status Date / Time (unknown) (no (unknown) (unknown) Anxiety (units (unkno wn) date) unknown) (unknown) (no (unknown) (unknown) BUN 10 (7-17) (units (unknown) date) mg/dL unknown) (unknown) (no (unknown) (unknown) BUN/Creatinine (units (unknown) date) Ratio 14.3 unknown) (6-22) (unknown) (no (unknown) (unknown) Baso # (Auto) (units ( unknown) date) 100 (0-100) /uL unknown) (unknown) (no (unknown) (unknown) Baso % (Auto) (units ( unknown) date) 0.4 (0-2) % unknown) (unknown) (no (unknown) (unknown) Bedside Urine (units ( unknown) date) Bilirubin - unknown) Negative (unknown) (no (unknown) (unknown) Bedside Urine (units ( unknown) date) Glucose unknown) Negative (unknown) (no (unknown) (unknown) Bedside Urine (units ( unknown) date) Ketone - unknown) Negative (unknown) (no (unknown) (unknown) Bedside Urine (units ( unknown) date) Leukocytes - unknown) Negative (unknown) (no (unknown) (unknown) Bedside Urine (units ( unknown) date) Nitrite - unknown) Negative (unknown) (no (unknown) (unknown) Bedside Urine (units ( unknown) date) Occult Blood - unknown) Negative (unknown) (no (unknown) (unknown) Bedside Urine (units ( unknown) date) Protein - unknown) Negative (unknown) (no (unknown) (unknown) Bedside Urine (units ( unknown) date) Urobilinogen - unknown) Negative (unknown) (no (unknown) (unknown) Bedside Urine pH (units (unknown) date) 6 unknown) (unknown) (no (unknown) (unknown) Biliary ducts:? (units (unknown) date) No biliary ductal unknown) dilatation.? ? (unknown) (no (unknown) (unknown) Bladder:? (units (unkn own) date) Unremarkable.? ? unknown) (unknown) (no (unknown) (unknown) Blood Pressure (units (unknown) date) unknown) (unknown) (no (unknown) (unknown) Blood Pressure (units (unknown) date) 143/80 H 01/09/22 unknown) 20:23 (unknown) (no (unknown) (unknown) Blood Pressure (units (unknown) date) 119/89 unknown) (unknown) (no (unknown) (unknown) Blood Pressure (units (unknown) date) 143/80 H 129/78 unknown) (unknown) (no (unknown) (unknown) Bones:? (units (unkno wn) date) Visualized osseous unknown) structures demonstrate no suspicious focal lesions. (unknown) (no (unknown) (unknown) CT abdomen pelvis (units (unknown) date) w con Stat unknown) (unknown) (no (unknown) (unknown) CT scan - (units (unkn own) date) abdomen/pelvis: unknown) (unknown) (no (unknown) (unknown) Calcium 9.5 (units ( unknown) date) (8.4-10.2) mg/dL unknown) (unknown) (no (unknown) (unknown) Carbon Dioxide (units (unknown) date) 21 L (22-32) unknown) mmol/L (unknown) (no (unknown) (unknown) Cardiac: Regular (units (unknown) date) rate and rhythm no unknown) murmurs no bruits (unknown) (no (unknown) (unknown) Chief complaint: (units (unknown) date) Abdominal Pain unknown) (unknown) (no (unknown) (unknown) Chloride 108 H (units (unknown) date) (98-107) mmol/L unknown) (unknown) (no (unknown) (unknown) Complete Blood (units (unknown) date) Count AUTO DIFF unknown) Stat (unknown) (no (unknown) (unknown) Comprehensive (units ( unknown) date) Metabolic Panel unknown) Stat (unknown) (no (unknown) (unknown) Course (units (unkno wn) date) unknown) (unknown) (no (unknown) (unknown) Creatinine 0.70 (units (unknown) date) (0.52-1.04) unknown) mg/dL (unknown) (no (unknown) (unknown) : 1995 (units (unknown) date) Acct:[id number] unknown) (unknown) (no (unknown) (unknown) Departure (units (unkn own) date) unknown) (unknown) (no (unknown) (unknown) Dictated by: (units (u nknown) date) Alex Patiño unknownPedro Ramos on 01/10/2022 at 1:58? ?? (unknown) (no (unknown) (unknown) Discharge Plan (units (unknown) date) unknown) (unknown) (no (unknown) (unknown) Discontinued (units (u nknown) date) Medications unknown) (unknown) (no (unknown) (unknown) EKG-12 Lead Stat (units (unknown) date) unknown) (unknown) (no (unknown) (unknown) ER Physician: (units ( unknown) date) Chanell Sahni unknown) (unknown) (no (unknown) (unknown) Eos # (Auto) 100 (units (unknown) date) (0-450) /uL unknown) (unknown) (no (unknown) (unknown) Eos % (Auto) 1.1 (units (unknown) date) L (2-4) % unknown) (unknown) (no (unknown) (unknown) Esterase (units (unkno wn) date) unknown) (unknown) (no (unknown) (unknown) Estimated GFR > (units (unknown) date) 60 (>60) mL/min unknown) (unknown) (no (unknown) (unknown) Exam (units (unkno wn) date) unknown) (unknown) (no (unknown) (unknown) Exercise-induced (units (unknown) date) asthma unknown) (unknown) (no (unknown) (unknown) Extremities: No (units (unknown) date) trauma, well unknown) perfused (unknown) (no (unknown) (unknown) FINDINGS:? (units (unk nown) date) unknown) (unknown) (no (unknown) (unknown) Gallbladder:? (units ( unknown) date) Within normal unknown) limits without calcified gallstones.? ? (unknown) (no (unknown) (unknown) General (units (unkno wn) date) unknown) (unknown) (no (unknown) (unknown) General: Healthy (units (unknown) date) appearing, unknown) somewhat anxious and in pain but Able to give a (unknown) (no (unknown) (unknown) GenericComposite[ (units (unknown) date) Plt Count 373 unknown) (150-400) X10^3/uL ] (unknown) (no (unknown) (unknown) GenericComposite[ (units (unknown) date) RBC 4.53 unknown) (4.0-5.2) X10^6/uL ] (unknown) (no (unknown) (unknown) GenericComposite[ (units (unknown) date) WBC 12.0 H unknown) (4.5-11.0) X10^3/uL ] (unknown) (no (unknown) (unknown) Globulin 3.7 (units (unknown) date) (1.7-4.1) g/dL unknown) (unknown) (no (unknown) (unknown) Glucose 86 (units (u nknown) date) (70-100) mg/dL unknown) (unknown) (no (unknown) (unknown) HEENT: Moist (units ( unknown) date) mucous membranes, unknown) normal sclera with reactive pupils, (unknown) (no (unknown) (unknown) HPI - General (units ( unknown) date) Adult unknown) (unknown) (no (unknown) (unknown) HPI narrative: (units (unknown) date) unknown) (unknown) (no (unknown) (unknown) Hct 41.2 (units (unkn own) date) (36-46) % unknown) (unknown) (no (unknown) (unknown) Heart:? Heart is (units (unknown) date) normal in size. unknown) (unknown) (no (unknown) (unknown) Hgb 14.5 (units (unkn own) date) (12.0-16.0) g/dL unknown) (unknown) (no (unknown) (unknown) History of (units (unk nown) date) Present Illness unknown) (unknown) (no (unknown) (unknown) Hydromorphone HCl (units (unknown) date) (Hydromorphone 0.5 unknown) Mg Inj) 0.5 mg IV Q15MIN PRN (unknown) (no (unknown) (unknown) IMPRESSION:? (units (u nknown) date) unknown) (unknown) (no (unknown) (unknown) Image quality:? (units (unknown) date) Excellent.? unknown) (unknown) (no (unknown) (unknown) Imaging Data (units (u nknown) date) unknown) (unknown) (no (unknown) (unknown) Initial Vital (units ( unknown) date) Signs unknown) (unknown) (no (unknown) (unknown) Initial Vital (units ( unknown) date) Signs: unknown) (unknown) (no (unknown) (unknown) Kidneys and (units (un known) date) Ureters:? No unknown) hydronephrosis.? ? (unknown) (no (unknown) (unknown) Lab Data (units (unkno wn) date) unknown) (unknown) (no (unknown) (unknown) Labs: (units (unkno wn) date) unknown) (unknown) (no (unknown) (unknown) Lipase 58 (units (un known) date) (23-300) U/L unknown) (unknown) (no (unknown) (unknown) Lipase Stat (units (un known) date) unknown) (unknown) (no (unknown) (unknown) Liver:? There is (units (unknown) date) an oval unknown) hypervascular lesion redemonstrated within the right (unknown) (no (unknown) (unknown) Lung bases:? (units (u nknown) date) Unremarkable.? ? unknown) (unknown) (no (unknown) (unknown) Lupus (units (unkno wn) date) unknown) (unknown) (no (unknown) (unknown) Lymph # (Auto) (units (unknown) date) 4700 H unknown) (1815-6099) /uL (unknown) (no (unknown) (unknown) Lymph % (Auto) (units (unknown) date) 39.0 (25-40) % unknown) (unknown) (no (unknown) (unknown) MCH 32.1 (units (unkn own) date) (26-34) PG unknown) (unknown) (no (unknown) (unknown) MCHC 35.2 (units (unk nown) date) (30-36) % unknown) (unknown) (no (unknown) (unknown) MCV 91.1 (units (unkn own) date) (80-100) fL unknown) (unknown) (no (unknown) (unknown) MDM Narrative (units ( unknown) date) unknown) (unknown) (no (unknown) (unknown) MRI for (units (unkno wn) date) unknown) (unknown) (no (unknown) (unknown) Medical Decision (units (unknown) date) Making unknown) (unknown) (no (unknown) (unknown) Medical History (units (unknown) date) (Reviewed 01/10/22 unknown) @ 00:56 by Chanell Sahni MD) (unknown) (no (unknown) (unknown) Medical decision (units (unknown) date) making narrative: unknown) (unknown) (no (unknown) (unknown) Mild stool (units (unk nown) date) distention within unknown) the ascending and transverse colon as well as (unknown) (no (unknown) (unknown) Miscellaneous,Doc (units (unknown) date) MD afshan [Primary unknown) Care Provider] - (unknown) (no (unknown) (unknown) Miscellaneous: No (units (unknown) date) inguinal hernias unknown) are seen. ? ? (unknown) (no (unknown) (unknown) Mode of arrival: (units (unknown) date) Ambulatory unknown) (unknown) (no (unknown) (unknown) Reagan # (Auto) (units ( unknown) date) 600 (0-900) /uL unknown) (unknown) (no (unknown) (unknown) Reagan % (Auto) (units ( unknown) date) 4.7 (3-14) % unknown) (unknown) (no (unknown) (unknown) Narrative: (units (unk nown) date) unknown) (unknown) (no (unknown) (unknown) Neurologic: (units (un known) date) Grossly unknown) neurologically intact with no obvious asymmetries or (unknown) (no (unknown) (unknown) Neut # (Auto) (units ( unknown) date) 6600 (1948-5723) unknown) /uL (unknown) (no (unknown) (unknown) Neut % (Auto) (units ( unknown) date) 54.8 (50-75) % unknown) (unknown) (no (unknown) (unknown) No Action (units (unkn own) date) unknown) (unknown) (no (unknown) (unknown) Ondansetron HCl (units (unknown) date) (Ondansetron 4 unknown) Mg/2 Ml Inj) 4 mg IV NOW ONE (unknown) (no (unknown) (unknown) Ordered: (units (unkno wn) date) unknown) (unknown) (no (unknown) (unknown) Orders (units (unkno wn) date) unknown) (unknown) (no (unknown) (unknown) PELVIS: (units (unkno wn) date) unknown) (unknown) (no (unknown) (unknown) Pancreas:? (units (unk nown) date) Unremarkable.? ? unknown) (unknown) (no (unknown) (unknown) Patient History (units (unknown) date) unknown) (unknown) (no (unknown) (unknown) Patient: (units (unkno wn) date) Chelsea Lebron unknown) MR#: [id number] (unknown) (no (unknown) (unknown) Pelvic Nodes: No (units (unknown) date) enlarged lymph unknown) nodes.? (unknown) (no (unknown) (unknown) Pelvic Organs:? (units (unknown) date) Unremarkable.? ? unknown) (unknown) (no (unknown) (unknown) Penicillins (units (un known) date) [PENICILLINS] unknown) Allergy Unknown Verified 11/15/21 14:12 (unknown) (no (unknown) (unknown) Peritoneum:? No (units (unknown) date) abnormal unknown) intraperitoneal fluid.? No free air.? (unknown) (no (unknown) (unknown) Point of care (units ( unknown) date) testing: unknown) (unknown) (no (unknown) (unknown) Potassium 3.5 (units (unknown) date) (3.4-5.1) mmol/L unknown) (unknown) (no (unknown) (unknown) Test (units (unknown) date) Results unknown) Negative (unknown) (no (unknown) (unknown) Prescriptions: (units (unknown) date) unknown) (unknown) (no (unknown) (unknown) Psych: (units (unkno wn) date) Cooperative, unknown) appropriate insight and affect (unknown) (no (unknown) (unknown) Pulse Oximetry (units (unknown) date) 99 01/09/22 unknown) 20:23 (unknown) (no (unknown) (unknown) Pulse Oximetry (units (unknown) date) 100 100 unknown) (unknown) (no (unknown) (unknown) Pulse Oximetry (units (unknown) date) 100 94 100 unknown) (unknown) (no (unknown) (unknown) Pulse Oximetry 99 (units (unknown) date) 92 99 unknown) (unknown) (no (unknown) (unknown) Pulse Rate 122 H (units (unknown) date) 01/09/22 20:23 unknown) (unknown) (no (unknown) (unknown) Pulse Rate 122 H (units (unknown) date) 117 H 119 H unknown) (unknown) (no (unknown) (unknown) Pulse Rate 95 H (units (unknown) date) 78 unknown) (unknown) (no (unknown) (unknown) Pulse Rate 97 H (units (unknown) date) 197 H 89 unknown) (unknown) (no (unknown) (unknown) RDW 12.4 (units (unkn own) date) (11.6-14.8) % unknown) (unknown) (no (unknown) (unknown) Referrals: (units (unk nown) date) unknown) (unknown) (no (unknown) (unknown) Related Data (units (u nknown) date) unknown) (unknown) (no (unknown) (unknown) Remainder of (units (u nknown) date) complete review of unknown) systems is otherwise unremarkable except for (unknown) (no (unknown) (unknown) Respiratory Rate (units (unknown) date) unknown) (unknown) (no (unknown) (unknown) Respiratory Rate (units (unknown) date) unknown) (unknown) (no (unknown) (unknown) Respiratory Rate (units (unknown) date) 22 01/09/22 unknown) 20:23 (unknown) (no (unknown) (unknown) Respiratory Rate (units (unknown) date) 22 18 unknown) (unknown) (no (unknown) (unknown) Respiratory: (units (u nknown) date) Lungs are clear to unknown) auscultation, no wheezing no rales no rhonchi. (unknown) (no (unknown) (unknown) Result diagrams: (units (unknown) date) unknown) (unknown) (no (unknown) (unknown) Review of Systems (units (unknown) date) unknown) (unknown) (no (unknown) (unknown) Signed By: (units (unk nown) date) unknown) (unknown) (no (unknown) (unknown) Skin: Warm and (units (unknown) date) dry, no rashes unknown) (unknown) (no (unknown) (unknown) Smoking Status: (units (unknown) date) Never smoker unknown) (unknown) (no (unknown) (unknown) Smoking Status: (units (unknown) date) Never smoker unknown) (unknown) (no (unknown) (unknown) Social History (units (unknown) date) (Reviewed 01/10/22 unknown) @ 00:56 by Chanell Sahni MD) (unknown) (no (unknown) (unknown) Sodium 140 (units (u nknown) date) (137-145) mmol/L unknown) (unknown) (no (unknown) (unknown) Sodium Chloride (units (unknown) date) (Normal Saline unknown) 0.9%) 1,000 mls @ 1,000 mls/hr IV BOLUS ONE (unknown) (no (unknown) (unknown) Source: patient (units (unknown) date) unknown) (unknown) (no (unknown) (unknown) Spleen:? Normal (units (unknown) date) in size.? ? unknown) (unknown) (no (unknown) (unknown) Stated complaint: (units (unknown) date) ABD pain, black unknown) stool (unknown) (no (unknown) (unknown) Stomach and (units (un known) date) Bowel:? Stomach, unknown) small bowel loops, and colon are normal in caliber (unknown) (no (unknown) (unknown) Substance Use (units ( unknown) date) Type: marijuana unknown) (unknown) (no (unknown) (unknown) Temperature (units (un known) date) unknown) (unknown) (no (unknown) (unknown) Temperature (units (un known) date) unknown) (unknown) (no (unknown) (unknown) Temperature 97.8 (units (unknown) date) F 01/09/22 20:23 unknown) (unknown) (no (unknown) (unknown) Temperature 97.8 (units (unknown) date) F unknown) (unknown) (no (unknown) (unknown) There is colonic (units (unknown) date) diverticulosis unknown) without acute diverticulitis. (unknown) (no (unknown) (unknown) Time Seen by (units (u nknown) date) Provider: 01/10/22 unknown) 00:47 (unknown) (no (unknown) (unknown) Total Bilirubin (units (unknown) date) 0.4 (0.2-1.3) unknown) mg/dL (unknown) (no (unknown) (unknown) Total Protein (units ( unknown) date) 8.5 H (6.3-8.2) unknown) g/dL (unknown) (no (unknown) (unknown) Urine Specific (units (unknown) date) Moore 1.025 unknown) (unknown) (no (unknown) (unknown) Ventral Wall: ? (units (unknown) date) No hernia.? unknown) (unknown) (no (unknown) (unknown) Vessels:? Aorta (units (unknown) date) and inferior vena unknown) cava are normal in size.? (unknown) (no (unknown) (unknown) Vital Signs (units (un known) date) unknown) (unknown) (no (unknown) (unknown) Vital signs: (units (u nknown) date) unknown) (unknown) (no (unknown) (unknown) [Embedded Image (units (unknown) date) Not Available] unknown) (unknown) (no (unknown) (unknown) abnormalities (units ( unknown) date) unknown) (unknown) (no (unknown) (unknown) acute (units (unkno wn) date) intra-abdominal unknown) abscess mass or obstruction. She does have a moderate of (unknown) (no (unknown) (unknown) aerosol inhaler (units (unknown) date) gram unknown) (unknown) (no (unknown) (unknown) albuterol sulfate (units (unknown) date) 90 mcg/actuation 2 unknown) puff INHALATION Q4-6H PRN #18 06/05/19 (unknown) (no (unknown) (unknown) alcohol intake (units (unknown) date) frequency: unknown) holidays/special occasions only (unknown) (no (unknown) (unknown) and wall (units (unkno wn) date) unknown) (unknown) (no (unknown) (unknown) appendectomy.? (units (unknown) date) unknown) (unknown) (no (unknown) (unknown) control. (units (unknown) date) She is not unknown) based on urine test today. (unknown) (no (unknown) (unknown) bowel (units (unkno wn) date) unknown) (unknown) (no (unknown) (unknown) complete and (units (u nknown) date) coherent history. unknown) Well-nourished well-developed (unknown) (no (unknown) (unknown) cough, (units (unkno wn) date) palpitations, unknown) headache. She currently is menstruating and not using (unknown) (no (unknown) (unknown) cyclobenzaprine (units (unknown) date) 10 mg tablet 10 mg unknown) PO TID PRN #12 tab 10/18/19 (unknown) (no (unknown) (unknown) days of (units (unkno wn) date) increasing right unknown) lower quadrant abdominal pain. She describes night (unknown) (no (unknown) (unknown) distal ileum are (units (unknown) date) suggestive of unknown) constipation.? No definite evidence of bowel (unknown) (no (unknown) (unknown) distal small (units (u nknown) date) bowel are unknown) suggestive of constipation.? No definite evidence of (unknown) (no (unknown) (unknown) doxycycline (units (un known) date) [DOXYCYCLINE] unknown) Allergy Unknown Verified 11/15/21 14:12 (unknown) (no (unknown) (unknown) enhancement in (units (unknown) date) the unknown) (unknown) (no (unknown) (unknown) famotidine 40 mg (units (unknown) date) tablet 40 mg PO unknown) DAILY #7 tab 05/14/21 (unknown) (no (unknown) (unknown) further (units (unkno wn) date) evaluation.? unknown) (unknown) (no (unknown) (unknown) hemangioma but (units (unknown) date) unknown) (unknown) (no (unknown) (unknown) hepatic (units (unkno wn) date) unknown) (unknown) (no (unknown) (unknown) hydrocodone (units (un known) date) [HYDROCODONE] unknown) Allergy Unknown Verified 11/15/21 14:12 (unknown) (no (unknown) (unknown) inferior aspect (units (unknown) date) of the lesion.? unknown) Findings are suggestive of a hemangioma. (unknown) (no (unknown) (unknown) is incompletely (units (unknown) date) characterized.? unknown) Consider follow-up nonemergent hepatic protocol (unknown) (no (unknown) (unknown) lidocaine Allergy (units (unknown) date) Verified unknown) 11/15/21 14:12 (unknown) (no (unknown) (unknown) lobe, measuring (units (unknown) date) up to unknown) approximately 1.7 cm which is similar in size compared to (unknown) (no (unknown) (unknown) obstruction. (units (u nknown) date) unknown) (unknown) (no (unknown) (unknown) obstruction.? (units ( unknown) date) unknown) (unknown) (no (unknown) (unknown) quadrants, good (units (unknown) date) bowel tones, no unknown) flank pain (unknown) (no (unknown) (unknown) rebound and mild (units (unknown) date) amount of unknown) tenderness in the right upper quadrant left lower (unknown) (no (unknown) (unknown) recent (units (unkno wn) date) colonoscopy, unknown) ovarian cysts, recurrent episodes of nausea presents with 4 (unknown) (no (unknown) (unknown) shellfish derived (units (unknown) date) Allergy unknown) Anaphylaxis Verified 11/15/21 14:12 (unknown) (no (unknown) (unknown) stool in the (units (u nknown) date) ascending colon. unknown) (unknown) (no (unknown) (unknown) study.? There is (units (unknown) date) suggestion of unknown) discontinuous peripheral hypervascular (unknown) (no (unknown) (unknown) sweats but no (units (u nknown) date) overt fevers. She unknown) has had a moderate amount of emesis not bloody. (unknown) (no (unknown) (unknown) tear and had (units (u nknown) date) black stool at unknown) that point. She is not complaining of chest pain, (unknown) (no (unknown) (unknown) that included in (units (unknown) date) the HPI. unknown) (unknown) (no (unknown) (unknown) the prior (units (unkn own) date) unknown) (unknown) (no (unknown) (unknown) thickness.? There (units (unknown) date) are pericecal unknown) surgical clips likely related to prior (unknown) (no (unknown) (unknown) time she had (units (un known) date) vomited heart unknown) enough to cause as esophageal bleeding and esophageal (unknown) (no (unknown) (unknown) within the (units (unk nown) date) unknown) Result panel 7 (unknown) (no (unknown) (unknown) (no value) (units (unk nown) date) unknown) (unknown) (no (unknown) (unknown) Radiologist's (units ( unknown) date) Impression: unknown) (unknown) (no (unknown) (unknown) Date of Service: (units (unknown) date) 01/09/22 unknown) (unknown) (no (unknown) (unknown) (no value) (units (unk nown) date) unknown) (unknown) (no (unknown) (unknown) <Electronically (units (unknown) date) signed by Chanell Cedillo unknown) MD Bora> (unknown) (no (unknown) (unknown) 01/09/22 21:05 (units (unknown) date) unknown) (unknown) (no (unknown) (unknown) 01/09/22 23:22 (units (unknown) date) unknown) (unknown) (no (unknown) (unknown) 01/10/22 0238 (units ( unknown) date) unknown) (unknown) (no (unknown) (unknown) 10 mg PO TID PRN (units (unknown) date) (Reason: muscle unknown) spasm) Qty: 12 0RF (unknown) (no (unknown) (unknown) 2 puff INHALATION (units (unknown) date) Q4-6H PRN (Reason: unknown) shortness of breath) Qty: 18 0RF (unknown) (no (unknown) (unknown) 40 mg PO DAILY (units (unknown) date) Qty: 7 0RF unknown) (unknown) (no (unknown) (unknown) Allergies (units (unkn own) date) unknown) (unknown) (no (unknown) (unknown) Documented by: (units (unknown) date) [email or web address] unknown) (unknown) (no (unknown) (unknown) ED Orders (units (unkn own) date) unknown) (unknown) (no (unknown) (unknown) Emergency Report (units (unknown) date) unknown) (unknown) (no (unknown) (unknown) [facility] (units (unknown) date) [id number] [facility] [address] unknown) [place] [address] (unknown) (no (unknown) (unknown) Lab Results (units (un known) date) unknown) (unknown) (no (unknown) (unknown) Last Admin: (units (un known) date) 01/10/22 01:03 unknown) Dose: 0.5 mg (unknown) (no (unknown) (unknown) Last Admin: (units (un known) date) 01/10/22 01:03 unknown) Dose: 1,000 mls/hr (unknown) (no (unknown) (unknown) Last Admin: (units (un known) date) 01/10/22 01:03 unknown) Dose: 4 mg (unknown) (no (unknown) (unknown) PRN Reason: Pain, (units (unknown) date) unknown) (unknown) (no (unknown) (unknown) Point of Care (units ( unknown) date) Testing unknown) (unknown) (no (unknown) (unknown) Previous Rx's (units ( unknown) date) unknown) (unknown) (no (unknown) (unknown) Stop: 01/10/22 (units (unknown) date) 00:58 unknown) (unknown) (no (unknown) (unknown) Stop: 01/10/22 (units (unknown) date) 01:56 unknown) (unknown) (no (unknown) (unknown) Urine Dip (units (unkn own) date) unknown) (unknown) (no (unknown) (unknown) Vital Signs - 8 (units (unknown) date) hr unknown) (unknown) (no (unknown) (unknown) (no value) (units (unk nown) date) unknown) (unknown) (no (unknown) (unknown) 01/09/22 01/09/22 (units (unknown) date) Range/Units unknown) (unknown) (no (unknown) (unknown) 21:05 23:22 (units (un known) date) unknown) (unknown) (no (unknown) (unknown) She is status (units ( unknown) date) post appendectomy unknown) she is not currently . She had a mild (unknown) (no (unknown) (unknown) albuterol sulfate (units (unknown) date) 90 mcg/actuation unknown) HFA aerosol inhaler (unknown) (no (unknown) (unknown) cyclobenzaprine (units (unknown) date) 10 mg tablet unknown) (unknown) (no (unknown) (unknown) famotidine 40 mg (units (unknown) date) tablet unknown) (unknown) (no (unknown) (unknown) 01/09/22 (units (unkno wn) date) unknown) (unknown) (no (unknown) (unknown) 01/10/22 (units (unkno wn) date) unknown) (unknown) (no (unknown) (unknown) Abdominal pain (units (unknown) date) unknown) (unknown) (no (unknown) (unknown) Full and (units (unkno wn) date) symmetrical air unknown) movement (unknown) (no (unknown) (unknown) Medication (units (unk nown) date) Instructions unknown) Recorded (unknown) (no (unknown) (unknown) She notes that (units (unknown) date) today she is unknown) having some black stools. She states that at 1 (unknown) (no (unknown) (unknown) hours. (units (unkno wn) date) unknown) (unknown) (no (unknown) (unknown) leukocytosis mild (units (unknown) date) tenderness in the unknown) right lower quadrant CT scan suggests no (unknown) (no (unknown) (unknown) side of your (units (u nknown) date) colon and I unknown) suspect that is the source of your pain. (unknown) (no (unknown) (unknown) 00:50 01/10/22 (units (unknown) date) unknown) (unknown) (no (unknown) (unknown) 01:00 (units (unkno wn) date) unknown) (unknown) (no (unknown) (unknown) 01:30 01/10/22 (units (unknown) date) unknown) (unknown) (no (unknown) (unknown) 02:00 (units (unkno wn) date) unknown) (unknown) (no (unknown) (unknown) [id number] (units (unkno wn) date) unknown) (unknown) (no (unknown) (unknown) 01/09/22 20:26 (units (unknown) date) unknown) (unknown) (no (unknown) (unknown) 01/09/22 21:05 (units (unknown) date) unknown) (unknown) (no (unknown) (unknown) 01/09/22 23:22 (units (unknown) date) unknown) (unknown) (no (unknown) (unknown) 01/10/22 00:57 (units (unknown) date) unknown) (unknown) (no (unknown) (unknown) 1. Mild stool (units ( unknown) date) distention within unknown) the ascending and transverse colon as well as (unknown) (no (unknown) (unknown) 2. 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 (unknown) (no (unknown) (unknown) 20:23 01/09/22 (units (unknown) date) unknown) (unknown) (no (unknown) (unknown) 23:05 01/09/22 (units (unknown) date) unknown) (unknown) (no (unknown) (unknown) 23:06 (units (unkno wn) date) unknown) (unknown) (no (unknown) (unknown) 23:30 01/10/22 (units (unknown) date) unknown) (unknown) (no (unknown) (unknown) 26-year-old woman (units (unknown) date) with 4 days of unknown) increasing right lower quadrant abdominal pain. (unknown) (no (unknown) (unknown) 26-year-old woman (units (unknown) date) with a history of unknown) lupus, fibromyalgia, colon polyps with the (unknown) (no (unknown) (unknown) 3. Hypervascular (units (unknown) date) lesion within the unknown) right hepatic lobe is suggestive of a (unknown) (no (unknown) (unknown) ? (units (unkno wn) date) unknown) (unknown) (no (unknown) (unknown) ABDOMEN: (units (unkno wn) date) unknown) (unknown) (no (unknown) (unknown) ALT 17 (<35) (units (unknown) date) IU/L unknown) (unknown) (no (unknown) (unknown) AST 22 (14-36) (units (unknown) date) IU/L unknown) (unknown) (no (unknown) (unknown) Abdomen: Soft, (units (unknown) date) moderate unknown) tenderness in the right lower quadrant with mild (unknown) (no (unknown) (unknown) Abdominal Nodes:? (units (unknown) date) No retroperitoneal unknown) or mesenteric adenopathy by size criteria.? (unknown) (no (unknown) (unknown) Activity (units (unkno wn) date) Restrictions/Addit unknown) ional Instructions: (unknown) (no (unknown) (unknown) Adrenal Glands:? (units (unknown) date) No adrenal unknown) nodules.? ? (unknown) (no (unknown) (unknown) Age/Sex: 26 / F (units (unknown) date) unknown) (unknown) (no (unknown) (unknown) Albumin 4.8 (units ( unknown) date) (3.5-5.0) g/dL unknown) (unknown) (no (unknown) (unknown) Albumin/Globulin (units (unknown) date) Ratio 1.3 unknown) (1.0-2.8) (unknown) (no (unknown) (unknown) Alkaline (units (unkno wn) date) Phosphatase 117 unknown) (38-126) U/L (unknown) (no (unknown) (unknown) Allergy/AdvReac (units (unknown) date) Type Severity unknown) Reaction Status Date / Time (unknown) (no (unknown) (unknown) Anxiety (units (unkno wn) date) unknown) (unknown) (no (unknown) (unknown) BUN 10 (7-17) (units (unknown) date) mg/dL unknown) (unknown) (no (unknown) (unknown) BUN/Creatinine (units (unknown) date) Ratio 14.3 unknown) (6-22) (unknown) (no (unknown) (unknown) Baso # (Auto) (units ( unknown) date) 100 (0-100) /uL unknown) (unknown) (no (unknown) (unknown) Baso % (Auto) (units ( unknown) date) 0.4 (0-2) % unknown) (unknown) (no (unknown) (unknown) Bedside Urine (units ( unknown) date) Bilirubin - unknown) Negative (unknown) (no (unknown) (unknown) Bedside Urine (units ( unknown) date) Glucose unknown) Negative (unknown) (no (unknown) (unknown) Bedside Urine (units ( unknown) date) Ketone - unknown) Negative (unknown) (no (unknown) (unknown) Bedside Urine (units ( unknown) date) Leukocytes - unknown) Negative (unknown) (no (unknown) (unknown) Bedside Urine (units ( unknown) date) Nitrite - unknown) Negative (unknown) (no (unknown) (unknown) Bedside Urine (units ( unknown) date) Occult Blood - unknown) Negative (unknown) (no (unknown) (unknown) Bedside Urine (units ( unknown) date) Protein - unknown) Negative (unknown) (no (unknown) (unknown) Bedside Urine (units ( unknown) date) Urobilinogen - unknown) Negative (unknown) (no (unknown) (unknown) Bedside Urine pH (units (unknown) date) 6 unknown) (unknown) (no (unknown) (unknown) Biliary ducts:? (units (unknown) date) No biliary ductal unknown) dilatation.? ? (unknown) (no (unknown) (unknown) Bladder:? (units (unkn own) date) Unremarkable.? ? unknown) (unknown) (no (unknown) (unknown) Blood Pressure (units (unknown) date) unknown) (unknown) (no (unknown) (unknown) Blood Pressure (units (unknown) date) 143/80 H 0515/22 unknown) 20:23 (unknown) (no (unknown) (unknown) Blood Pressure (units (unknown) date) 119/89 unknown) (unknown) (no (unknown) (unknown) Blood Pressure (units (unknown) date) 143/80 H 129/78 unknown) (unknown) (no (unknown) (unknown) Bones:? (units (unkno wn) date) Visualized osseous unknown) structures demonstrate no suspicious focal lesions. (unknown) (no (unknown) (unknown) CT abdomen pelvis (units (unknown) date) w con Stat unknown) (unknown) (no (unknown) (unknown) CT scan - (units (unkn own) date) abdomen/pelvis: unknown) (unknown) (no (unknown) (unknown) Calcium 9.5 (units ( unknown) date) (8.4-10.2) mg/dL unknown) (unknown) (no (unknown) (unknown) Carbon Dioxide (units (unknown) date) 21 L (22-32) unknown) mmol/L (unknown) (no (unknown) (unknown) Cardiac: Regular (units (unknown) date) rate and rhythm no unknown) murmurs no bruits (unknown) (no (unknown) (unknown) Chief complaint: (units (unknown) date) Abdominal Pain unknown) (unknown) (no (unknown) (unknown) Chloride 108 H (units (unknown) date) (98-107) mmol/L unknown) (unknown) (no (unknown) (unknown) Clinical (units (unkno wn) date) Impression: unknown) (unknown) (no (unknown) (unknown) Complete Blood (units (unknown) date) Count AUTO DIFF unknown) Stat (unknown) (no (unknown) (unknown) Comprehensive (units ( unknown) date) Metabolic Panel unknown) Stat (unknown) (no (unknown) (unknown) Course (units (unkno wn) date) unknown) (unknown) (no (unknown) (unknown) Creatinine 0.70 (units (unknown) date) (0.52-1.04) unknown) mg/dL (unknown) (no (unknown) (unknown) : 1995 (units (unknown) date) Acct:[id number] unknown) (unknown) (no (unknown) (unknown) Departure (units (unkn own) date) unknown) (unknown) (no (unknown) (unknown) Dictated by: (units (u nknown) date) cherie Bray M.D. on 01/10/2022 at 1:58? ?? (unknown) (no (unknown) (unknown) Discharge Plan (units (unknown) date) unknown) (unknown) (no (unknown) (unknown) Discontinued (units (u nknown) date) Medications unknown) (unknown) (no (unknown) (unknown) EKG-12 Lead Stat (units (unknown) date) unknown) (unknown) (no (unknown) (unknown) ER Physician: (units ( unknown) date) Chanell Sahni unknown) (unknown) (no (unknown) (unknown) Eos # (Auto) 100 (units (unknown) date) (0-450) /uL unknown) (unknown) (no (unknown) (unknown) Eos % (Auto) 1.1 (units (unknown) date) L (2-4) % unknown) (unknown) (no (unknown) (unknown) Esterase (units (unkno wn) date) unknown) (unknown) (no (unknown) (unknown) Estimated GFR > (units (unknown) date) 60 (>60) mL/min unknown) (unknown) (no (unknown) (unknown) Exam (units (unkno wn) date) unknown) (unknown) (no (unknown) (unknown) Exercise-induced (units (unknown) date) asthma unknown) (unknown) (no (unknown) (unknown) Extremities: No (units (unknown) date) trauma, well unknown) perfused (unknown) (no (unknown) (unknown) FINDINGS:? (units (unk nown) date) unknown) (unknown) (no (unknown) (unknown) Gallbladder:? (units ( unknown) date) Within normal unknown) limits without calcified gallstones.? ? (unknown) (no (unknown) (unknown) General (units (unkno wn) date) unknown) (unknown) (no (unknown) (unknown) General: Healthy (units (unknown) date) appearing, unknown) somewhat anxious and in pain but Able to give a (unknown) (no (unknown) (unknown) GenericComposite[ (units (unknown) date) Plt Count 373 unknown) (150-400) X10^3/uL ] (unknown) (no (unknown) (unknown) GenericComposite[ (units (unknown) date) RBC 4.53 unknown) (4.0-5.2) X10^6/uL ] (unknown) (no (unknown) (unknown) GenericComposite[ (units (unknown) date) WBC 12.0 H unknown) (4.5-11.0) X10^3/uL ] (unknown) (no (unknown) (unknown) Globulin 3.7 (units (unknown) date) (1.7-4.1) g/dL unknown) (unknown) (no (unknown) (unknown) Glucose 86 (units (u nknown) date) (70-100) mg/dL unknown) (unknown) (no (unknown) (unknown) HEENT: Moist (units ( unknown) date) mucous membranes, unknown) normal sclera with reactive pupils, (unknown) (no (unknown) (unknown) HPI - General (units ( unknown) date) Adult unknown) (unknown) (no (unknown) (unknown) HPI narrative: (units (unknown) date) unknown) (unknown) (no (unknown) (unknown) Hct 41.2 (units (unkn own) date) (36-46) % unknown) (unknown) (no (unknown) (unknown) Heart:? Heart is (units (unknown) date) normal in size. unknown) (unknown) (no (unknown) (unknown) Hgb 14.5 (units (unkn own) date) (12.0-16.0) g/dL unknown) (unknown) (no (unknown) (unknown) History of (units (unk nown) date) Present Illness unknown) (unknown) (no (unknown) (unknown) Hydromorphone HCl (units (unknown) date) (Hydromorphone 0.5 unknown) Mg Inj) 0.5 mg IV Q15MIN PRN (unknown) (no (unknown) (unknown) I have given you (units (unknown) date) a bottle of unknown) magnesium citrate, this is [id number] if you (unknown) (no (unknown) (unknown) I wish you the (units (unknown) date) best unknown) (unknown) (no (unknown) (unknown) IMPRESSION:? (units (u nknown) date) unknown) (unknown) (no (unknown) (unknown) If your having (units (unknown) date) worsening pain, unknown) develop fevers or new symptoms it would be very (unknown) (no (unknown) (unknown) Image quality:? (units (unknown) date) Excellent.? unknown) (unknown) (no (unknown) (unknown) Imaging Data (units (u nknown) date) unknown) (unknown) (no (unknown) (unknown) Initial Vital (units ( unknown) date) Signs unknown) (unknown) (no (unknown) (unknown) Initial Vital (units ( unknown) date) Signs: unknown) (unknown) (no (unknown) (unknown) Instructions: DI (units (unknown) date) for Constipation unknown) (unknown) (no (unknown) (unknown) Kidneys and (units (un known) date) Ureters:? No unknown) hydronephrosis.? ? (unknown) (no (unknown) (unknown) Lab Data (units (unkno wn) date) unknown) (unknown) (no (unknown) (unknown) Labs: (units (unkno wn) date) unknown) (unknown) (no (unknown) (unknown) Lipase 58 (units (un known) date) (23-300) U/L unknown) (unknown) (no (unknown) (unknown) Lipase Stat (units (un known) date) unknown) (unknown) (no (unknown) (unknown) Liver:? There is (units (unknown) date) an oval unknown) hypervascular lesion redemonstrated within the right (unknown) (no (unknown) (unknown) Lung bases:? (units (u nknown) date) Unremarkable.? ? unknown) (unknown) (no (unknown) (unknown) Lupus (units (unkno wn) date) unknown) (unknown) (no (unknown) (unknown) Lymph # (Auto) (units (unknown) date) 4700 H unknown) (4258-9284) /uL (unknown) (no (unknown) (unknown) Lymph % (Auto) (units (unknown) date) 39.0 (25-40) % unknown) (unknown) (no (unknown) (unknown) MCH 32.1 (units (unkn own) date) (26-34) PG unknown) (unknown) (no (unknown) (unknown) MCHC 35.2 (units (unk nown) date) (30-36) % unknown) (unknown) (no (unknown) (unknown) MCV 91.1 (units (unkn own) date) (80-100) fL unknown) (unknown) (no (unknown) (unknown) MDM Narrative (units ( unknown) date) unknown) (unknown) (no (unknown) (unknown) MRI for (units (unkno wn) date) unknown) (unknown) (no (unknown) (unknown) Medical Decision (units (unknown) date) Making unknown) (unknown) (no (unknown) (unknown) Medical History (units (unknown) date) (Updated 01/10/22 unknown) @ 02:38 by Chanell Sahni MD) (unknown) (no (unknown) (unknown) Medical decision (units (unknown) date) making narrative: unknown) (unknown) (no (unknown) (unknown) Mild stool (units (unk nown) date) distention within unknown) the ascending and transverse colon as well as (unknown) (no (unknown) (unknown) Miscellaneous,Doc (units (unknown) date) MD afshan [Primary unknown) Care Provider] - (unknown) (no (unknown) (unknown) Miscellaneous: No (units (unknown) date) inguinal hernias unknown) are seen. ? ? (unknown) (no (unknown) (unknown) Mode of arrival: (units (unknown) date) Ambulatory unknown) (unknown) (no (unknown) (unknown) Reagan # (Auto) (units ( unknown) date) 600 (0-900) /uL unknown) (unknown) (no (unknown) (unknown) Reagan % (Auto) (units ( unknown) date) 4.7 (3-14) % unknown) (unknown) (no (unknown) (unknown) Narrative: (units (unk nown) date) unknown) (unknown) (no (unknown) (unknown) Neurologic: (units (un known) date) Grossly unknown) neurologically intact with no obvious asymmetries or (unknown) (no (unknown) (unknown) Neut # (Auto) (units ( unknown) date) 6600 (8283-9484) unknown) /uL (unknown) (no (unknown) (unknown) Neut % (Auto) (units ( unknown) date) 54.8 (50-75) % unknown) (unknown) (no (unknown) (unknown) No Action (units (unkn own) date) unknown) (unknown) (no (unknown) (unknown) Ondansetron HCl (units (unknown) date) (Ondansetron 4 unknown) Mg/2 Ml Inj) 4 mg IV NOW ONE (unknown) (no (unknown) (unknown) Ordered: (units (unkno wn) date) unknown) (unknown) (no (unknown) (unknown) Orders (units (unkno wn) date) unknown) (unknown) (no (unknown) (unknown) PELVIS: (units (unkno wn) date) unknown) (unknown) (no (unknown) (unknown) Pancreas:? (units (unk nown) date) Unremarkable.? ? unknown) (unknown) (no (unknown) (unknown) Patient (units (unkno wn) date) Disposition: Home unknown) (unknown) (no (unknown) (unknown) Patient History (units (unknown) date) unknown) (unknown) (no (unknown) (unknown) Patient: (units (unkno wn) date) Chelsea Lebron unknown) MR#: [id number] (unknown) (no (unknown) (unknown) Pelvic Nodes: No (units (unknown) date) enlarged lymph unknown) nodes.? (unknown) (no (unknown) (unknown) Pelvic Organs:? (units (unknown) date) Unremarkable.? ? unknown) (unknown) (no (unknown) (unknown) Penicillins (units (un known) date) [PENICILLINS] unknown) Allergy Unknown Verified 11/15/21 14:12 (unknown) (no (unknown) (unknown) Peritoneum:? No (units (unknown) date) abnormal unknown) intraperitoneal fluid.? No free air.? (unknown) (no (unknown) (unknown) Point of care (units ( unknown) date) testing: unknown) (unknown) (no (unknown) (unknown) Potassium 3.5 (units (unknown) date) (3.4-5.1) mmol/L unknown) (unknown) (no (unknown) (unknown) Test (units (unknown) date) Results unknown) Negative (unknown) (no (unknown) (unknown) Prescriptions: (units (unknown) date) unknown) (unknown) (no (unknown) (unknown) Psych: (units (unkno wn) date) Cooperative, unknown) appropriate insight and affect (unknown) (no (unknown) (unknown) Pulse Oximetry (units (unknown) date) 99 01/09/22 unknown) 20:23 (unknown) (no (unknown) (unknown) Pulse Oximetry (units (unknown) date) 100 100 unknown) (unknown) (no (unknown) (unknown) Pulse Oximetry (units (unknown) date) 100 94 100 unknown) (unknown) (no (unknown) (unknown) Pulse Oximetry 99 (units (unknown) date) 92 99 unknown) (unknown) (no (unknown) (unknown) Pulse Rate 122 H (units (unknown) date) 01/09/22 20:23 unknown) (unknown) (no (unknown) (unknown) Pulse Rate 122 H (units (unknown) date) 117 H 119 H unknown) (unknown) (no (unknown) (unknown) Pulse Rate 95 H (units (unknown) date) 78 unknown) (unknown) (no (unknown) (unknown) Pulse Rate 97 H (units (unknown) date) 197 H 89 unknown) (unknown) (no (unknown) (unknown) RDW 12.4 (units (unkn own) date) (11.6-14.8) % unknown) (unknown) (no (unknown) (unknown) Referrals: (units (unk nown) date) unknown) (unknown) (no (unknown) (unknown) Related Data (units (u nknown) date) unknown) (unknown) (no (unknown) (unknown) Remainder of (units (u nknown) date) complete review of unknown) systems is otherwise unremarkable except for (unknown) (no (unknown) (unknown) Respiratory Rate (units (unknown) date) unknown) (unknown) (no (unknown) (unknown) Respiratory Rate (units (unknown) date) unknown) (unknown) (no (unknown) (unknown) Respiratory Rate (units (unknown) date) 22 01/09/22 unknown) 20:23 (unknown) (no (unknown) (unknown) Respiratory Rate (units (unknown) date) 22 18 unknown) (unknown) (no (unknown) (unknown) Respiratory: (units (u nknown) date) Lungs are clear to unknown) auscultation, no wheezing no rales no rhonchi. (unknown) (no (unknown) (unknown) Result diagrams: (units (unknown) date) unknown) (unknown) (no (unknown) (unknown) Review of Systems (units (unknown) date) unknown) (unknown) (no (unknown) (unknown) Signed By: (units (unk nown) date) unknown) (unknown) (no (unknown) (unknown) Skin: Warm and (units (unknown) date) dry, no rashes unknown) (unknown) (no (unknown) (unknown) Smoking Status: (units (unknown) date) Never smoker unknown) (unknown) (no (unknown) (unknown) Smoking Status: (units (unknown) date) Never smoker unknown) (unknown) (no (unknown) (unknown) Social History (units (unknown) date) (Reviewed 01/10/22 unknown) @ 00:56 by Chanell Sahni MD) (unknown) (no (unknown) (unknown) Sodium 140 (units (u nknown) date) (137-145) mmol/L unknown) (unknown) (no (unknown) (unknown) Sodium Chloride (units (unknown) date) (Normal Saline unknown) 0.9%) 1,000 mls @ 1,000 mls/hr IV BOLUS ONE (unknown) (no (unknown) (unknown) Source: patient (units (unknown) date) unknown) (unknown) (no (unknown) (unknown) Spleen:? Normal (units (unknown) date) in size.? ? unknown) (unknown) (no (unknown) (unknown) Stated complaint: (units (unknown) date) ABD pain, black unknown) stool (unknown) (no (unknown) (unknown) Stomach and (units (un known) date) Bowel:? Stomach, unknown) small bowel loops, and colon are normal in caliber (unknown) (no (unknown) (unknown) Substance Use (units ( unknown) date) Type: marijuana unknown) (unknown) (no (unknown) (unknown) Temperature (units (un known) date) unknown) (unknown) (no (unknown) (unknown) Temperature (units (un known) date) unknown) (unknown) (no (unknown) (unknown) Temperature 97.8 (units (unknown) date) F 01/09/22 20:23 unknown) (unknown) (no (unknown) (unknown) Temperature 97.8 (units (unknown) date) F unknown) (unknown) (no (unknown) (unknown) Thank you for (units ( unknown) date) coming in today unknown) (unknown) (no (unknown) (unknown) There is colonic (units (unknown) date) diverticulosis unknown) without acute diverticulitis. (unknown) (no (unknown) (unknown) Time Seen by (units (u nknown) date) Provider: 01/10/22 unknown) 00:47 (unknown) (no (unknown) (unknown) Total Bilirubin (units (unknown) date) 0.4 (0.2-1.3) unknown) mg/dL (unknown) (no (unknown) (unknown) Total Protein (units ( unknown) date) 8.5 H (6.3-8.2) unknown) g/dL (unknown) (no (unknown) (unknown) Urine Specific (units (unknown) date) Moore 1.025 unknown) (unknown) (no (unknown) (unknown) Ventral Wall: ? (units (unknown) date) No hernia.? unknown) (unknown) (no (unknown) (unknown) Vessels:? Aorta (units (unknown) date) and inferior vena unknown) cava are normal in size.? (unknown) (no (unknown) (unknown) Vital Signs (units (un known) date) unknown) (unknown) (no (unknown) (unknown) Vital signs: (units (u nknown) date) unknown) (unknown) (no (unknown) (unknown) Your blood work (units (unknown) date) showed a slightly unknown) elevated white blood cell count. With that (unknown) (no (unknown) (unknown) [Embedded Image (units (unknown) date) Not Available] unknown) (unknown) (no (unknown) (unknown) abnormalities (units ( unknown) date) unknown) (unknown) (no (unknown) (unknown) abnormalities. It (units (unknown) date) also shows that unknown) you have a large amount of stool in the right (unknown) (no (unknown) (unknown) acute (units (unkno wn) date) intra-abdominal unknown) abscess mass or obstruction. She does have a moderate of (unknown) (no (unknown) (unknown) aerosol inhaler (units (unknown) date) gram unknown) (unknown) (no (unknown) (unknown) albuterol sulfate (units (unknown) date) 90 mcg/actuation 2 unknown) puff INHALATION Q4-6H PRN #18 06/05/19 (unknown) (no (unknown) (unknown) alcohol intake (units (unknown) date) frequency: unknown) holidays/special occasions only (unknown) (no (unknown) (unknown) and wall (units (unkno wn) date) unknown) (unknown) (no (unknown) (unknown) appendectomy.? (units (unknown) date) unknown) (unknown) (no (unknown) (unknown) appropriate to (units (unknown) date) return to the unknown) emergency department (unknown) (no (unknown) (unknown) control. (units (unknown) date) She is not unknown) based on urine test today. (unknown) (no (unknown) (unknown) bottle of (units (unkn own) date) magnesium citrate. unknown) We did have long discussion regarding abdominal (unknown) (no (unknown) (unknown) bowel (units (unkno wn) date) unknown) (unknown) (no (unknown) (unknown) complete and (units (u nknown) date) coherent history. unknown) Well-nourished well-developed (unknown) (no (unknown) (unknown) cough, (units (unkno wn) date) palpitations, unknown) headache. She currently is menstruating and not using (unknown) (no (unknown) (unknown) cyclobenzaprine (units (unknown) date) 10 mg tablet 10 mg unknown) PO TID PRN #12 tab 10/18/19 (unknown) (no (unknown) (unknown) days of (units (unkno wn) date) increasing right unknown) lower quadrant abdominal pain. She describes night (unknown) (no (unknown) (unknown) distal ileum are (units (unknown) date) suggestive of unknown) constipation.? No definite evidence of bowel (unknown) (no (unknown) (unknown) distal small (units (u nknown) date) bowel are unknown) suggestive of constipation.? No definite evidence of (unknown) (no (unknown) (unknown) doxycycline (units (un known) date) [DOXYCYCLINE] unknown) Allergy Unknown Verified 11/15/21 14:12 (unknown) (no (unknown) (unknown) enhancement in (units (unknown) date) the unknown) (unknown) (no (unknown) (unknown) famotidine 40 mg (units (unknown) date) tablet 40 mg PO unknown) DAILY #7 tab 05/14/21 (unknown) (no (unknown) (unknown) further (units (unkno wn) date) evaluation.? unknown) (unknown) (no (unknown) (unknown) hemangioma but (units (unknown) date) unknown) (unknown) (no (unknown) (unknown) hepatic (units (unkno wn) date) unknown) (unknown) (no (unknown) (unknown) her. She (units (unkn own) date) understands and is unknown) safe for home discharge (unknown) (no (unknown) (unknown) hydrocodone (units (un known) date) [HYDROCODONE] unknown) Allergy Unknown Verified 11/15/21 14:12 (unknown) (no (unknown) (unknown) inferior aspect (units (unknown) date) of the lesion.? unknown) Findings are suggestive of a hemangioma. (unknown) (no (unknown) (unknown) is incompletely (units (unknown) date) characterized.? unknown) Consider follow-up nonemergent hepatic protocol (unknown) (no (unknown) (unknown) lidocaine Allergy (units (unknown) date) Verified unknown) 11/15/21 14:12 (unknown) (no (unknown) (unknown) lobe, measuring (units (unknown) date) up to unknown) approximately 1.7 cm which is similar in size compared to (unknown) (no (unknown) (unknown) masses, tumors, (units (unknown) date) obstructions, unknown) acute abdominal infections or other significant (unknown) (no (unknown) (unknown) obstruction. (units (u nknown) date) unknown) (unknown) (no (unknown) (unknown) obstruction.? (units ( unknown) date) unknown) (unknown) (no (unknown) (unknown) pain and pictures (units (unknown) date) of the amount of unknown) stool in her right colon were shared with (unknown) (no (unknown) (unknown) please drink the (units (unknown) date) whole bottle and unknown) expect have quite a bit of stool over the next (unknown) (no (unknown) (unknown) quadrants, good (units (unknown) date) bowel tones, no unknown) flank pain (unknown) (no (unknown) (unknown) rebound and mild (units (unknown) date) amount of unknown) tenderness in the right upper quadrant left lower (unknown) (no (unknown) (unknown) recent (units (unkno wn) date) colonoscopy, unknown) ovarian cysts, recurrent episodes of nausea presents with 4 (unknown) (no (unknown) (unknown) shellfish derived (units (unknown) date) Allergy unknown) Anaphylaxis Verified 11/15/21 14:12 (unknown) (no (unknown) (unknown) stool in the (units (u nknown) date) ascending colon. unknown) At this point there is no evidence of acute (unknown) (no (unknown) (unknown) study.? 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 Will send her home with a (unknown) (no (unknown) (unknown) sweats but no (units (u nknown) date) overt fevers. She unknown) has had a moderate amount of emesis not bloody. (unknown) (no (unknown) (unknown) tear and had (units (u nknown) date) black stool at unknown) that point. She is not complaining of chest pain, (unknown) (no (unknown) (unknown) tenderness on (units ( unknown) date) your physical exam unknown) a CT scan was ordered. CT scan shows no (unknown) (no (unknown) (unknown) that included in (units (unknown) date) the HPI. unknown) (unknown) (no (unknown) (unknown) the prior (units (unkn own) date) unknown) (unknown) (no (unknown) (unknown) thickness.? There (units (unknown) date) are pericecal unknown) surgical clips likely related to prior (unknown) (no (unknown) (unknown) time she had (units (un known) date) vomited heart unknown) enough to cause as esophageal bleeding and esophageal (unknown) (no (unknown) (unknown) within the (units (unk nown) date) unknown) (unknown) (no (unknown) (unknown) would ever like (units (unknown) date) to try this unknown) treatment again. When you wake up in the morning Result panel 8 (unknown) (no (unknown) (unknown) (no value) (units (unk nown) date) unknown) (unknown) (no (unknown) (unknown) [address] [place] [address] (units (unknown) date) unknown) (unknown) (no (unknown) (unknown) [place], [place] (units ( unknown) date) [id number] unknown) (unknown) (no (unknown) (unknown) [facility] (units (unknown) date) unknown) (unknown) (no (unknown) (unknown) Signed (units (unkno wn) date) unknown) (unknown) (no (unknown) (unknown) XRay Report (units (un known) date) unknown) (unknown) (no (unknown) (unknown) (no value) (units (unk nown) date) unknown) (unknown) (no (unknown) (unknown) 01/14/22 (units (unkno wn) date) unknown) (unknown) (no (unknown) (unknown) Abdomen: Bowel (units (unknown) date) gas pattern is unknown) normal. No suspicious calcifications. (unknown) (no (unknown) (unknown) Approved by: Víctor (units (unknown) date) Richard Bender on unknown) 01/14/2022 at 19:30 (unknown) (no (unknown) (unknown) Bones: No (units (unk nown) date) suspicious bony unknown) lesions. (unknown) (no (unknown) (unknown) COMPARISON: (units (un known) date) None. unknown) (unknown) (no (unknown) (unknown) Chest: Lungs are (units (unknown) date) clear. Heart size unknown) is normal. No pleural effusions. No (unknown) (no (unknown) (unknown) Dictated by: Víctor (units (unknown) date) Richard Bender on unknown) 01/14/2022 at 19:29 (unknown) (no (unknown) (unknown) FINDINGS: (units (unkn own) date) unknown) (unknown) (no (unknown) (unknown) IMPRESSION: No (units (unknown) date) evidence of bowel unknown) obstruction or gross free air. (unknown) (no (unknown) (unknown) INDICATIONS: (units (u nknown) date) Abdominal pain unknown) (unknown) (no (unknown) (unknown) No acute (units (unkno wn) date) cardiopulmonary unknown) pathology. (unknown) (no (unknown) (unknown) Surgical changes (units (unknown) date) and devices: unknown) Surgical clips are seen in right pelvic region (unknown) (no (unknown) (unknown) TECHNIQUE: One (units (unknown) date) view chest and two unknown) views of the abdomen were acquired. (unknown) (no (unknown) (unknown) clinical (units (unkno wn) date) correlation. unknown) (unknown) (no (unknown) (unknown) organ contours (units (unknown) date) appear normal. unknown) (unknown) (no (unknown) (unknown) pneumoperitoneum. (units (unknown) date) unknown) (unknown) (no (unknown) (unknown) [id number] (units (unkno wn) date) unknown) (unknown) (no (unknown) (unknown) Accession Number: (units (unknown) date) [id number] unknown) (unknown) (no (unknown) (unknown) Age/Sex: 26 / F (units (unknown) date) Date of Service: unknown) (unknown) (no (unknown) (unknown) : 1995 (units (unknown) date) Acct:[id number] unknown) (unknown) (no (unknown) (unknown) Loc: ED (units (unkno wn) date) unknown) (unknown) (no (unknown) (unknown) Ordering (units (unkno wn) date) Provider: unknown) Mario Ashraf D.O. (unknown) (no (unknown) (unknown) PROCEDURE: XR (units (unknown) date) ACUTE ABDOMEN unknown) SERIES (unknown) (no (unknown) (unknown) Patient: (units (unkno wn) date) Chelsea Lebron unknown) MR#: [id number] (unknown) (no (unknown) (unknown) Procedure: XR (units ( unknown) date) acute abdomen unknown) series (unknown) (no (unknown) (unknown) Visualized solid (units (unknown) date) unknown) (unknown) (no (unknown) (unknown) suggest (units (unkno wn) date) unknown) Result panel 9 (unknown) (no date) (unknown) (unknown) 0 /uL (unkn own) (unknown) (no date) (unknown) (unknown) 0 /uL (unkn own) (unknown) (no date) (unknown) (unknown) 0.2 % (unkn own) (unknown) (no date) (unknown) (unknown) 0.3 % (unkn own) (unknown) (no date) (unknown) (unknown) [address] /uL (unkn own) (unknown) (no date) (unknown) (unknown) 12.5 % (unkn own) (unknown) (no date) (unknown) (unknown) 13.4 X10 3/uL (unkn own) (unknown) (no date) (unknown) (unknown) 15.2 g/dL (unkn own) (unknown) (no date) (unknown) (unknown) 18.1 % (unkn own) (unknown) (no date) (unknown) (unknown) 2400 /uL (unkn own) (unknown) (no date) (unknown) (unknown) 3.2 % (unkn own) (unknown) (no date) (unknown) (unknown) 32.1 PG (unkn own) (unknown) (no date) (unknown) (unknown) 35.1 % (unkn own) (unknown) (no date) (unknown) (unknown) 367 X10 3/uL (unkn own) (unknown) (no date) (unknown) (unknown) 4.72 X10 6/uL (unkn own) (unknown) (no date) (unknown) (unknown) 400 /uL (unkn own) (unknown) (no date) (unknown) (unknown) 43.1 % (unkn own) (unknown) (no date) (unknown) (unknown) 78.2 % (unkn own) (unknown) (no date) (unknown) (unknown) 91.4 fL (unkn own) Result panel 10 (unknown) (no date) (unknown) (unknown) > 60 mL/min (unkn own) (unknown) (no date) (unknown) (unknown) 0.5 mg/dL (unkn own) (unknown) (no date) (unknown) (unknown) 0.62 mg/dL (unkn own) (unknown) (no date) (unknown) (unknown) 1.3 (units unknown) (unknown) (unknown) (no date) (unknown) (unknown) 10 mg/dL (unkn own) (unknown) (no date) (unknown) (unknown) 106 mmol/L (unkn own) (unknown) (no date) (unknown) (unknown) 127 U/L (unkn own) (unknown) (no date) (unknown) (unknown) 137 mmol/L (unkn own) (unknown) (no date) (unknown) (unknown) 16.1 (units unknown) (unknown) (unknown) (no date) (unknown) (unknown) 18 IU/L (unkn own) (unknown) (no date) (unknown) (unknown) 20 mmol/L (unkn own) (unknown) (no date) (unknown) (unknown) 24 IU/L (unkn own) (unknown) (no date) (unknown) (unknown) 3.5 g/dL (unkn own) (unknown) (no date) (unknown) (unknown) 3.7 mmol/L (unkn own) (unknown) (no date) (unknown) (unknown) 4.6 g/dL (unkn own) (unknown) (no date) (unknown) (unknown) 42 U/L (unkn own) (unknown) (no date) (unknown) (unknown) 8.1 g/dL (unkn own) (unknown) (no date) (unknown) (unknown) 9.4 mg/dL (unkn own) (unknown) (no date) (unknown) (unknown) 93 mg/dL (unkn own) Result panel 11 (unknown) (no (unknown) (unknown) (no value) (units (unk nown) date) unknown) (unknown) (no (unknown) (unknown) Radiologist's (units ( unknown) date) Impression: unknown) (unknown) (no (unknown) (unknown) (no value) (units (unk nown) date) unknown) (unknown) (no (unknown) (unknown) Date of Service: (units (unknown) date) 01/14/22 unknown) (unknown) (no (unknown) (unknown) (no value) (units (unk nown) date) unknown) (unknown) (no (unknown) (unknown) 01/14/22 18:35 (units (unknown) date) unknown) (unknown) (no (unknown) (unknown) 10 mg PO TID PRN (units (unknown) date) (Reason: muscle unknown) spasm) Qty: 12 0RF (unknown) (no (unknown) (unknown) [address] [place] [address] (units (unknown) date) unknown) (unknown) (no (unknown) (unknown) 2 puff INHALATION (units (unknown) date) Q4-6H PRN (Reason: unknown) shortness of breath) Qty: 18 0RF (unknown) (no (unknown) (unknown) 40 mg PO DAILY (units (unknown) date) Qty: 7 0RF unknown) (unknown) (no (unknown) (unknown) Allergies (units (unkn own) date) unknown) (unknown) (no (unknown) (unknown) [place], [place] (units ( unknown) date) [id number] unknown) (unknown) (no (unknown) (unknown) Documented by: (units (unknown) date) EDU.ASEXTO unknown) (unknown) (no (unknown) (unknown) ED Orders (units (unkn own) date) unknown) (unknown) (no (unknown) (unknown) Emergency Report (units (unknown) date) unknown) (unknown) (no (unknown) (unknown) [facility] (units (unknown) date) unknown) (unknown) (no (unknown) (unknown) [facility] (units (unknown) date) [address] [place] [address] Street unknown) [place] [address] (unknown) (no (unknown) (unknown) Lab Results (units (un known) date) unknown) (unknown) (no (unknown) (unknown) Last Admin: (units (un known) date) 01/14/22 18:53 unknown) Dose: 40 mg (unknown) (no (unknown) (unknown) Last Admin: (units (un known) date) 01/14/22 18:54 unknown) Dose: 150 mls/hr (unknown) (no (unknown) (unknown) Launch?Image (units (u nknown) date) unknown) (unknown) (no (unknown) (unknown) Point of Care (units ( unknown) date) Testing unknown) (unknown) (no (unknown) (unknown) Previous Rx's (units ( unknown) date) unknown) (unknown) (no (unknown) (unknown) Signed (units (unkno wn) date) unknown) (unknown) (no (unknown) (unknown) Stop: 01/14/22 (units (unknown) date) 18:08 unknown) (unknown) (no (unknown) (unknown) Urine Dip (units (unkn own) date) unknown) (unknown) (no (unknown) (unknown) Vital Signs - 8 (units (unknown) date) hr unknown) (unknown) (no (unknown) (unknown) XRay Report (units (un known) date) unknown) (unknown) (no (unknown) (unknown) (no value) (units (unk nown) date) unknown) (unknown) (no (unknown) (unknown) 01/14/22 01/14/22 (units (unknown) date) Range/Units unknown) (unknown) (no (unknown) (unknown) 18:35 18:35 (units (un known) date) unknown) (unknown) (no (unknown) (unknown) albuterol sulfate (units (unknown) date) 90 mcg/actuation unknown) HFA aerosol inhaler (unknown) (no (unknown) (unknown) cyclobenzaprine (units (unknown) date) 10 mg tablet unknown) (unknown) (no (unknown) (unknown) famotidine 40 mg (units (unknown) date) tablet unknown) (unknown) (no (unknown) (unknown) 01/14/22 (units (unkno wn) date) unknown) (unknown) (no (unknown) (unknown) Medication (units (unk nown) date) Instructions unknown) Recorded (unknown) (no (unknown) (unknown) [id number] (units (unkno wn) date) unknown) (unknown) (no (unknown) (unknown) 01/14/22 18:08 (units (unknown) date) unknown) (unknown) (no (unknown) (unknown) 01/14/22 18:35 (units (unknown) date) unknown) (unknown) (no (unknown) (unknown) 15:37 (units (unkno wn) date) unknown) (unknown) (no (unknown) (unknown) ? (units (unkno wn) date) unknown) (unknown) (no (unknown) (unknown) ALT 18 (<35) (units (unknown) date) IU/L unknown) (unknown) (no (unknown) (unknown) AST 24 (14-36) (units (unknown) date) IU/L unknown) (unknown) (no (unknown) (unknown) Abdomen:? Bowel (units (unknown) date) gas pattern is unknown) normal.? No suspicious calcifications.? (unknown) (no (unknown) (unknown) Abdominal x-ray: (units (unknown) date) unknown) (unknown) (no (unknown) (unknown) Accession Number: (units (unknown) date) [id number] ?? unknown) (unknown) (no (unknown) (unknown) Acct:[id number] (units (unknown) date) unknown) (unknown) (no (unknown) (unknown) Age/Sex: 26 / F (units (unknown) date) unknown) (unknown) (no (unknown) (unknown) Age/Sex: 26 / F (units (unknown) date) unknown) (unknown) (no (unknown) (unknown) Albumin 4.6 (units ( unknown) date) (3.5-5.0) g/dL unknown) (unknown) (no (unknown) (unknown) Albumin/Globulin (units (unknown) date) Ratio 1.3 unknown) (1.0-2.8) (unknown) (no (unknown) (unknown) Alkaline (units (unkno wn) date) Phosphatase 127 unknown) H (38-126) U/L (unknown) (no (unknown) (unknown) Allergy/AdvReac (units (unknown) date) Type Severity unknown) Reaction Status Date / Time (unknown) (no (unknown) (unknown) Anxiety (units (unkno wn) date) unknown) (unknown) (no (unknown) (unknown) Approved by: Víctor Southunits (unknown) date) Richard Benedr on unknown) 01/14/2022 at 19:30? (unknown) (no (unknown) (unknown) BUN 10 (7-17) (units (unknown) date) mg/dL unknown) (unknown) (no (unknown) (unknown) BUN/Creatinine (units (unknown) date) Ratio 16.1 unknown) (6-22) (unknown) (no (unknown) (unknown) Baso # (Auto) 0 (units (unknown) date) (0-100) /uL unknown) (unknown) (no (unknown) (unknown) Baso % (Auto) (units ( unknown) date) 0.3 (0-2) % unknown) (unknown) (no (unknown) (unknown) Bedside Urine (units ( unknown) date) Bilirubin - unknown) Negative (unknown) (no (unknown) (unknown) Bedside Urine (units ( unknown) date) Glucose unknown) Negative (unknown) (no (unknown) (unknown) Bedside Urine (units ( unknown) date) Ketone - unknown) Negative (unknown) (no (unknown) (unknown) Bedside Urine (units ( unknown) date) Leukocytes - unknown) Negative (unknown) (no (unknown) (unknown) Bedside Urine (units ( unknown) date) Nitrite - unknown) Negative (unknown) (no (unknown) (unknown) Bedside Urine (units ( unknown) date) Occult Blood - unknown) Negative (unknown) (no (unknown) (unknown) Bedside Urine (units ( unknown) date) Protein - unknown) Negative (unknown) (no (unknown) (unknown) Bedside Urine (units ( unknown) date) Urobilinogen - unknown) Negative (unknown) (no (unknown) (unknown) Bedside Urine pH (units (unknown) date) 6.0 unknown) (unknown) (no (unknown) (unknown) Blood Pressure (units (unknown) date) 129/84 01/14/22 unknown) 15:37 (unknown) (no (unknown) (unknown) Blood Pressure (units (unknown) date) 129/84 unknown) (unknown) (no (unknown) (unknown) Bones:? No (units (unk nown) date) suspicious bony unknown) lesions.? (unknown) (no (unknown) (unknown) COMPARISON:? (units (u nknown) date) None. unknown) (unknown) (no (unknown) (unknown) Calcium 9.4 (units ( unknown) date) (8.4-10.2) mg/dL unknown) (unknown) (no (unknown) (unknown) Carbon Dioxide (units (unknown) date) 20 L (22-32) unknown) mmol/L (unknown) (no (unknown) (unknown) Chest:? Lungs are (units (unknown) date) clear.? Heart size unknown) is normal.? No pleural effusions.? No (unknown) (no (unknown) (unknown) Chief Complaint: (units (unknown) date) Abdominal Pain unknown) (unknown) (no (unknown) (unknown) Chloride 106 (units (unknown) date) (98-107) mmol/L unknown) (unknown) (no (unknown) (unknown) Complete Blood (units (unknown) date) Count AUTO DIFF unknown) Stat (unknown) (no (unknown) (unknown) Comprehensive (units ( unknown) date) Metabolic Panel unknown) Stat (unknown) (no (unknown) (unknown) Course (units (unkno wn) date) unknown) (unknown) (no (unknown) (unknown) Creatinine 0.62 (units (unknown) date) (0.52-1.04) unknown) mg/dL (unknown) (no (unknown) (unknown) : 1995 (units (unknown) date) Acct:[id number] unknown) (unknown) (no (unknown) (unknown) : 1995 (units (unknown) date) unknown) (unknown) (no (unknown) (unknown) Date of Service: (units (unknown) date) 01/14/22 unknown) (unknown) (no (unknown) (unknown) Departure (units (unkn own) date) unknown) (unknown) (no (unknown) (unknown) Dictated by: Víctor (units (unknown) date) Richard Bender on unknown) 01/14/2022 at 19:29 ? ? (unknown) (no (unknown) (unknown) Discharge Plan (units (unknown) date) unknown) (unknown) (no (unknown) (unknown) Discontinued (units (u nknown) date) Medications unknown) (unknown) (no (unknown) (unknown) ER Physician: (units ( unknown) date) Mario Ashraf D.O. unknown) (unknown) (no (unknown) (unknown) Eos # (Auto) 0 (units (unknown) date) (0-450) /uL unknown) (unknown) (no (unknown) (unknown) Eos % (Auto) 0.2 (units (unknown) date) L (2-4) % unknown) (unknown) (no (unknown) (unknown) Esterase (units (unkno wn) date) unknown) (unknown) (no (unknown) (unknown) Estimated GFR > (units (unknown) date) 60 (>60) mL/min unknown) (unknown) (no (unknown) (unknown) Exam (units (unkno wn) date) unknown) (unknown) (no (unknown) (unknown) Exercise-induced (units (unknown) date) asthma unknown) (unknown) (no (unknown) (unknown) FINDINGS:? (units (unk nown) date) unknown) (unknown) (no (unknown) (unknown) General (units (unkno wn) date) unknown) (unknown) (no (unknown) (unknown) GenericComposite[ (units (unknown) date) Plt Count 367 unknown) (150-400) X10^3/uL ] (unknown) (no (unknown) (unknown) GenericComposite[ (units (unknown) date) RBC 4.72 unknown) (4.0-5.2) X10^6/uL ] (unknown) (no (unknown) (unknown) GenericComposite[ (units (unknown) date) WBC 13.4 H unknown) (4.5-11.0) X10^3/uL ] (unknown) (no (unknown) (unknown) Globulin 3.5 (units (unknown) date) (1.7-4.1) g/dL unknown) (unknown) (no (unknown) (unknown) Glucose 93 (units (u nknown) date) (70-100) mg/dL unknown) (unknown) (no (unknown) (unknown) HPI - Abdominal (units (unknown) date) Pain unknown) (unknown) (no (unknown) (unknown) Hct 43.1 (units (unkn own) date) (36-46) % unknown) (unknown) (no (unknown) (unknown) Hgb 15.2 (units (unkn own) date) (12.0-16.0) g/dL unknown) (unknown) (no (unknown) (unknown) IMPRESSION:? No (units (unknown) date) evidence of bowel unknown) obstruction or gross free air. (unknown) (no (unknown) (unknown) INDICATIONS:? (units ( unknown) date) Abdominal pain unknown) (unknown) (no (unknown) (unknown) Imaging Data (units (u nknown) date) unknown) (unknown) (no (unknown) (unknown) Initial Vital (units ( unknown) date) Signs unknown) (unknown) (no (unknown) (unknown) Initial Vital (units ( unknown) date) Signs: unknown) (unknown) (no (unknown) (unknown) Lab Data (units (unkno wn) date) unknown) (unknown) (no (unknown) (unknown) Labs: (units (unkno wn) date) unknown) (unknown) (no (unknown) (unknown) Lipase 42 (units (un known) date) (23-300) U/L unknown) (unknown) (no (unknown) (unknown) Lipase Stat (units (un known) date) unknown) (unknown) (no (unknown) (unknown) Loc: ED (units (unkno wn) date) unknown) (unknown) (no (unknown) (unknown) Lupus (units (unkno wn) date) unknown) (unknown) (no (unknown) (unknown) Lymph # (Auto) (units (unknown) date) 2400 ([id number]) unknown) /uL (unknown) (no (unknown) (unknown) Lymph % (Auto) (units (unknown) date) 18.1 L (25-40) unknown) % (unknown) (no (unknown) (unknown) MCH 32.1 (units (unkn own) date) (26-34) PG unknown) (unknown) (no (unknown) (unknown) MCHC 35.1 (units (unk nown) date) (30-36) % unknown) (unknown) (no (unknown) (unknown) MCV 91.4 (units (unkn own) date) (80-100) fL unknown) (unknown) (no (unknown) (unknown) MDM - Abdominal (units (unknown) date) Pain unknown) (unknown) (no (unknown) (unknown) MR#: [id number] (units (unknown) date) unknown) (unknown) (no (unknown) (unknown) Medical History (units (unknown) date) (Updated 01/10/22 unknown) @ 02:38 by Cahnell Sahni MD) (unknown) (no (unknown) (unknown) Mode of arrival: (units (unknown) date) Family Vehicle unknown) (unknown) (no (unknown) (unknown) Reagan # (Auto) (units ( unknown) date) 400 (0-900) /uL unknown) (unknown) (no (unknown) (unknown) Reagan % (Auto) (units ( unknown) date) 3.2 (3-14) % unknown) (unknown) (no (unknown) (unknown) NEGATIVE (units (unkno wn) date) unknown) (unknown) (no (unknown) (unknown) Neut # (Auto) (units ( unknown) date) [address] H unknown) (4473-1663) /uL (unknown) (no (unknown) (unknown) Neut % (Auto) (units ( unknown) date) 78.2 H (50-75) unknown) % (unknown) (no (unknown) (unknown) No Action (units (unkn own) date) unknown) (unknown) (no (unknown) (unknown) No acute (units (unkno wn) date) cardiopulmonary unknown) pathology.? (unknown) (no (unknown) (unknown) O Positive (units (unk nown) date) unknown) (unknown) (no (unknown) (unknown) Ordered: (units (unkno wn) date) unknown) (unknown) (no (unknown) (unknown) Ordering (units (unkno wn) date) Provider: unknown) Mario Ashraf D.O. (unknown) (no (unknown) (unknown) Orders (units (unkno wn) date) unknown) (unknown) (no (unknown) (unknown) PROCEDURE:? XR (units (unknown) date) ACUTE ABDOMEN unknown) SERIES (unknown) (no (unknown) (unknown) Pantoprazole (units (u nknown) date) Sodium unknown) (Pantoprazole 40 Mg Vial) 40 mg IV NOW ONE (unknown) (no (unknown) (unknown) Patient History (units (unknown) date) unknown) (unknown) (no (unknown) (unknown) Patient: (units (unkno wn) date) Chelsea Lebron unknown) MR#: [id number] (unknown) (no (unknown) (unknown) Patient: (units (unkno wn) date) Chelsea Lebron unknown) (unknown) (no (unknown) (unknown) Penicillins (units (un known) date) [PENICILLINS] unknown) Allergy Unknown Verified 11/15/21 14:12 (unknown) (no (unknown) (unknown) Point of care (units ( unknown) date) testing: unknown) (unknown) (no (unknown) (unknown) Potassium 3.7 (units (unknown) date) (3.4-5.1) mmol/L unknown) (unknown) (no (unknown) (unknown) Test (units (unknown) date) Results unknown) Negative (unknown) (no (unknown) (unknown) Prescriptions: (units (unknown) date) unknown) (unknown) (no (unknown) (unknown) Procedure: XR (units ( unknown) date) acute abdomen unknown) series (unknown) (no (unknown) (unknown) Pulse Oximetry (units (unknown) date) 100 01/14/22 unknown) 15:37 (unknown) (no (unknown) (unknown) Pulse Oximetry (units (unknown) date) 100 unknown) (unknown) (no (unknown) (unknown) Pulse Rate 100 H (units (unknown) date) 01/14/22 15:37 unknown) (unknown) (no (unknown) (unknown) Pulse Rate 100 H (units (unknown) date) unknown) (unknown) (no (unknown) (unknown) RDW 12.5 (units (unkn own) date) (11.6-14.8) % unknown) (unknown) (no (unknown) (unknown) Related Data (units (u nknown) date) unknown) (unknown) (no (unknown) (unknown) Respiratory Rate (units (unknown) date) 16 01/14/22 unknown) 15:37 (unknown) (no (unknown) (unknown) Respiratory Rate (units (unknown) date) 16 unknown) (unknown) (no (unknown) (unknown) Result diagrams: (units (unknown) date) unknown) (unknown) (no (unknown) (unknown) Signed By: (units (unk nown) date) unknown) (unknown) (no (unknown) (unknown) Smoking Status: (units (unknown) date) Never smoker unknown) (unknown) (no (unknown) (unknown) Smoking Status: (units (unknown) date) Never smoker unknown) (unknown) (no (unknown) (unknown) Social History (units (unknown) date) (Reviewed 01/10/22 unknown) @ 00:56 by Chanell Sahni MD) (unknown) (no (unknown) (unknown) Sodium 137 (units (u nknown) date) (137-145) mmol/L unknown) (unknown) (no (unknown) (unknown) Sodium Chloride (units (unknown) date) (Normal Saline unknown) 0.9%) 1,000 mls @ 150 mls/hr IV CONT JERMAIN (unknown) (no (unknown) (unknown) Stated Complaint: (units (unknown) date) THROWING UP BLOOD unknown) LOWER ABD (unknown) (no (unknown) (unknown) Substance Use (units ( unknown) date) Type: marijuana unknown) (unknown) (no (unknown) (unknown) Surgical changes (units (unknown) date) and devices:? unknown) Surgical clips are seen in right pelvic region (unknown) (no (unknown) (unknown) TECHNIQUE:? One (units (unknown) date) view chest and two unknown) views of the abdomen were acquired.? (unknown) (no (unknown) (unknown) Temperature 97.6 (units (unknown) date) F 01/14/22 15:37 unknown) (unknown) (no (unknown) (unknown) Temperature 97.6 (units (unknown) date) F unknown) (unknown) (no (unknown) (unknown) Time Seen by (units (u nknown) date) Provider: 01/14/22 unknown) 18:06 (unknown) (no (unknown) (unknown) Total Bilirubin (units (unknown) date) 0.5 (0.2-1.3) unknown) mg/dL (unknown) (no (unknown) (unknown) Total Protein (units ( unknown) date) 8.1 (6.3-8.2) unknown) g/dL (unknown) (no (unknown) (unknown) Type and Screen (units (unknown) date) Stat unknown) (unknown) (no (unknown) (unknown) Urine Specific (units (unknown) date) Moore 1.020 unknown) (unknown) (no (unknown) (unknown) Visualized solid (units (unknown) date) unknown) (unknown) (no (unknown) (unknown) Vital Signs (units (un known) date) unknown) (unknown) (no (unknown) (unknown) Vital signs: (units (u nknown) date) unknown) (unknown) (no (unknown) (unknown) XR acute abdomen (units (unknown) date) series Stat unknown) (unknown) (no (unknown) (unknown) [Embedded Image (units (unknown) date) Not Available] unknown) (unknown) (no (unknown) (unknown) aerosol inhaler (units (unknown) date) gram unknown) (unknown) (no (unknown) (unknown) albuterol sulfate (units (unknown) date) 90 mcg/actuation 2 unknown) puff INHALATION Q4-6H PRN #18 06/05/19 (unknown) (no (unknown) (unknown) alcohol intake (units (unknown) date) frequency: unknown) holidays/special occasions only (unknown) (no (unknown) (unknown) clinical (units (unkno wn) date) correlation. unknown) (unknown) (no (unknown) (unknown) cyclobenzaprine (units (unknown) date) 10 mg tablet 10 mg unknown) PO TID PRN #12 tab 10/18/19 (unknown) (no (unknown) (unknown) doxycycline (units (un known) date) [DOXYCYCLINE] unknown) Allergy Unknown Verified 11/15/21 14:12 (unknown) (no (unknown) (unknown) famotidine 40 mg (units (unknown) date) tablet 40 mg PO unknown) DAILY #7 tab 05/14/21 (unknown) (no (unknown) (unknown) hydrocodone (units (un known) date) [HYDROCODONE] unknown) Allergy Unknown Verified 11/15/21 14:12 (unknown) (no (unknown) (unknown) lidocaine Allergy (units (unknown) date) Verified unknown) 11/15/21 14:12 (unknown) (no (unknown) (unknown) organ contours (units (unknown) date) appear normal.? unknown) (unknown) (no (unknown) (unknown) pneumoperitoneum. (units (unknown) date) ? unknown) (unknown) (no (unknown) (unknown) shellfish derived (units (unknown) date) Allergy unknown) Anaphylaxis Verified 11/15/21 14:12 (unknown) (no (unknown) (unknown) suggest (units (unkno wn) date) unknown) Result panel 12 (unknown) (no (unknown) (unknown) (no value) (units (unk nown) date) unknown) (unknown) (no (unknown) (unknown) (no value) (units (unk nown) date) unknown) (unknown) (no (unknown) (unknown) [address] [place] [address] (units (unknown) date) unknown) (unknown) (no (unknown) (unknown) [place], [place] (units ( unknown) date) [id number] unknown) (unknown) (no (unknown) (unknown) [facility] (units (unknown) date) unknown) (unknown) (no (unknown) (unknown) Signed (units (unkno wn) date) unknown) (unknown) (no (unknown) (unknown) Ultrasound Report (units (unknown) date) unknown) (unknown) (no (unknown) (unknown) (no value) (units (unk nown) date) unknown) (unknown) (no (unknown) (unknown) There is patent (units (unknown) date) arterial flow in unknown) the ovaries on Doppler interrogation. (unknown) (no (unknown) (unknown) 01/14/22 (units (unkno wn) date) unknown) (unknown) (no (unknown) (unknown) 1. No adnexal (units ( unknown) date) masses identified. unknown) (unknown) (no (unknown) (unknown) 2. No definite (units (unknown) date) sonographic unknown) evidence of ovarian torsion. (unknown) (no (unknown) (unknown) 3. Appendix not (units (unknown) date) visualized unknown) sonographically. (unknown) (no (unknown) (unknown) Additional (units (unk nown) date) endovaginal unknown) scanning was necessary due to incomplete visualization (unknown) (no (unknown) (unknown) Approved by: (units (u nknown) date) cherie Bray M.D. on 01/14/2022 at 21:47 (unknown) (no (unknown) (unknown) COMPAR[facility]: (units (un known) date[facility], [facility]/01/2017, 13:05. (unknown) (no (unknown) (unknown) Dictated by: (units (u nknown) date) cherie Bray M.D. on 01/14/2022 at 21:45 (unknown) (no (unknown) (unknown) FINDINGS: (units (unkn own) date) unknown) (unknown) (no (unknown) (unknown) IMPRESSION: (units (un known) date) unknown) (unknown) (no (unknown) (unknown) INDICATIONS: (units (u nknown) date) SEVERE RLQ PAIN unknown) (unknown) (no (unknown) (unknown) Other: No (units (unk nown) date) pathologic free unknown) abdominal or pelvic fluid. The appendix was not (unknown) (no (unknown) (unknown) Ovaries: The (units ( unknown) date) right ovary unknown) measures 2.5 x 1.7 x 1.9 cm. The left ovary measures (unknown) (no (unknown) (unknown) Real-time (units (unkn own) date) scanning was unknown) performed of the pelvic organs, with image (unknown) (no (unknown) (unknown) TECHNIQUE: (units (unk nown) date) unknown) (unknown) (no (unknown) (unknown) Uterus: Uterus (units (unknown) date) is anteverted and unknown) measures 6.7 x 2.9 x 4.2 cm. The endometrium (unknown) (no (unknown) (unknown) We strive to (units (u nknown) date) produce accurate, unknown) complete, and clear reports of imaging services. (unknown) (no (unknown) (unknown) adnexal and (units (un known) date) endometrial unknown) structures by transabdominal scanning. (unknown) (no (unknown) (unknown) and voice (units (unkn own) date) recognition unknown) software. Therefore, it may contain abnormal punctuation, (unknown) (no (unknown) (unknown) insertions and/or (units (unknown) date) omissions. unknown) Occasional wrong-word or sound-alike substitutions (unknown) (no (unknown) (unknown) occur. Though we (units (unknown) date) review the report unknown) and make efforts to correct it, we do (unknown) (no (unknown) (unknown) seen in each (units (u nknown) date) ovary. No adnexal unknown) masses. There are a few scattered follicles (unknown) (no (unknown) (unknown) the report be (units ( unknown) date) read carefully in unknown) proper context to recognize any text (unknown) (no (unknown) (unknown) up to 0.4 cm. No (units (unknown) date) uterine mass unknown) lesion identified. There are a few small (unknown) (no (unknown) (unknown) us in improving (units (unknown) date) patient care, this unknown) report was composed using standard report (unknown) (no (unknown) (unknown) visualized (units (unk nown) date) sonographically in unknown) the right lower quadrant. (unknown) (no (unknown) (unknown) x 1.6 cm. The (units ( unknown) date) ovaries have a unknown) normal sonographic appearance. Less than 12 (unknown) (no (unknown) (unknown) [id number] (units (unkno wn) date) unknown) (unknown) (no (unknown) (unknown) 2.6 x 1.6 (units (unkn own) date) unknown) (unknown) (no (unknown) (unknown) Accession Number: (units (unknown) date) [id number] unknown) (unknown) (no (unknown) (unknown) Age/Sex: 26 / F (units (unknown) date) Date of Service: unknown) (unknown) (no (unknown) (unknown) : 1995 (units (unknown) date) Acct:[id number] unknown) (unknown) (no (unknown) (unknown) Loc: ED (units (unkno wn) date) unknown) (unknown) (no (unknown) (unknown) Ordering (units (unkno wn) date) Provider: unknown) Mario Ashraf D.O. (unknown) (no (unknown) (unknown) PROCEDURE: US (units (unknown) date) PELVIC COMPLETE unknown) (unknown) (no (unknown) (unknown) Patient: (units (unkno wn) date) Chelsea Lebron unknown) MR#: [id number] (unknown) (no (unknown) (unknown) Procedure: US (units ( unknown) date) pelvic complete unknown) (unknown) (no (unknown) (unknown) To assist (units (unkn own) date) unknown) (unknown) (no (unknown) (unknown) bilaterally. (units (u nknown) date) unknown) (unknown) (no (unknown) (unknown) discretely (units (unk nown) date) unknown) (unknown) (no (unknown) (unknown) documentation. (units (unknown) date) unknown) (unknown) (no (unknown) (unknown) follicles can be (units (unknown) date) unknown) (unknown) (no (unknown) (unknown) inaccuracies. (units ( unknown) date) unknown) (unknown) (no (unknown) (unknown) may (units (unkno wn) date) unknown) (unknown) (no (unknown) (unknown) measures (units (unkno wn) date) unknown) (unknown) (no (unknown) (unknown) nabothian cysts. (units (unknown) date) unknown) (unknown) (no (unknown) (unknown) of the (units (unkno wn) date) unknown) (unknown) (no (unknown) (unknown) recommend that (units (unknown) date) unknown) (unknown) (no (unknown) (unknown) templates (units (unkn own) date) unknown) Result panel 13 (unknown) (no (unknown) (unknown) (no value) (units (unk nown) date) unknown) (unknown) (no (unknown) (unknown) (no value) (units (unk nown) date) unknown) (unknown) (no (unknown) (unknown) [address] [place] [address] (units (unknown) date) unknown) (unknown) (no (unknown) (unknown) [place], [place] (units ( unknown) date) [id number] unknown) (unknown) (no (unknown) (unknown) CT Scan Report (units (unknown) date) unknown) (unknown) (no (unknown) (unknown) [facility] (units (unknown) date) unknown) (unknown) (no (unknown) (unknown) Signed (units (unkno wn) date) unknown) (unknown) (no (unknown) (unknown) (no value) (units (unk nown) date) unknown) (unknown) (no (unknown) (unknown) 01/14/22 (units (unkno wn) date) unknown) (unknown) (no (unknown) (unknown) 1. Fluid (units (unkno wn) date) distention unknown) throughout the colon with air-fluid levels likely (unknown) (no (unknown) (unknown) 14:03. [place] (units (unknown) date) [facility], CT, CT unknown) ABDOMEN PELVIS W CON, 01/10/2022, 1:14. (unknown) (no (unknown) (unknown) 2. Associated (units ( unknown) date) mild short segment unknown) dilatation of the distal ileum likely (unknown) (no (unknown) (unknown) 3. Hypervascular (units (unknown) date) lesion unknown) redemonstrated within the right hepatic lobe. This (unknown) (no (unknown) (unknown) ABDOMEN: (units (unkno wn) date) unknown) (unknown) (no (unknown) (unknown) Abdominal Nodes: (units (unknown) date) No retroperitoneal unknown) or mesenteric adenopathy by size criteria. (unknown) (no (unknown) (unknown) Adrenal Glands: (units (unknown) date) No adrenal unknown) nodules. (unknown) (no (unknown) (unknown) After the (units (unkn own) date) administration of unknown) oral and IV contrast, axial sections were acquired (unknown) (no (unknown) (unknown) Approved by: (units (u nknown) date) Alex Patiño unknownPedro Ramos on 01/14/2022 at 22:28 (unknown) (no (unknown) (unknown) Biliary ducts: (units (unknown) date) No biliary ductal unknown) dilatation. (unknown) (no (unknown) (unknown) Bladder: (units (unkno wn) date) Unremarkable. unknown) (unknown) (no (unknown) (unknown) Bones: (units (unkno wn) date) Visualized osseous unknown) structures demonstrate no suspicious focal lesions. (unknown) (no (unknown) (unknown) COMPARISON: (units (un known) date) [facility] unknown) [facility], CT, CT ABDOMEN PELVIS WITH CONTRAST, (unknown) (no (unknown) (unknown) Dictated by: (units (u nknown) date) Alex Patiño unknown) Richard on 01/14/2022 at 22:17 (unknown) (no (unknown) (unknown) FINDINGS: (units (unkn own) date) unknown) (unknown) (no (unknown) (unknown) Gallbladder: (units (u nknown) date) Within normal unknown) limits without calcified gallstones. (unknown) (no (unknown) (unknown) Heart: Heart is (units (unknown) date) normal in size. unknown) (unknown) (no (unknown) (unknown) IMPRESSION: (units (un known) date) unknown) (unknown) (no (unknown) (unknown) INDICATIONS: (units (u nknown) date) severe RLQ pain unknown) (unknown) (no (unknown) (unknown) Image quality: (units (unknown) date) Excellent. unknown) (unknown) (no (unknown) (unknown) Kidneys and (units (un known) date) Ureters: No unknown) hydronephrosis. (unknown) (no (unknown) (unknown) Liver: There is (units (unknown) date) a hypervascular unknown) lesion redemonstrated in the right hepatic (unknown) (no (unknown) (unknown) Lung bases: (units (un known) date) Unremarkable. unknown) (unknown) (no (unknown) (unknown) Miscellaneous: No (units (unknown) date) inguinal hernias unknown) are seen. (unknown) (no (unknown) (unknown) PELVIS: (units (unkno wn) date) unknown) (unknown) (no (unknown) (unknown) Pancreas: (units (unkn own) date) Unremarkable. unknown) (unknown) (no (unknown) (unknown) Pelvic Nodes: No (units (unknown) date) enlarged lymph unknown) nodes. (unknown) (no (unknown) (unknown) Pelvic Organs: (units (unknown) date) Unremarkable. unknown) (unknown) (no (unknown) (unknown) Peritoneum: No (units (unknown) date) abnormal unknown) intraperitoneal fluid. No free air. (unknown) (no (unknown) (unknown) Spleen: Normal (units (unknown) date) in size. unknown) (unknown) (no (unknown) (unknown) Stomach and (units (un known) date) Bowel: Stomach unknown) and small bowel loops are normal in caliber and (unknown) (no (unknown) (unknown) TECHNIQUE: (units (unk nown) date) unknown) (unknown) (no (unknown) (unknown) Ventral Wall: (units ( unknown) date) No hernia. unknown) (unknown) (no (unknown) (unknown) Vessels: Aorta (units (unknown) date) and inferior vena unknown) cava are normal in size. (unknown) (no (unknown) (unknown) bowel (units (unkno wn) date) obstruction. unknown) (unknown) (no (unknown) (unknown) changes along the (units (unknown) date) cecum likely unknown) related to prior appendectomy. (unknown) (no (unknown) (unknown) colonic (units (unkno wn) date) distention. unknown) Remainder of the small bowel is nondistended. No definite (unknown) (no (unknown) (unknown) gastroenteritis (units (unknown) date) or ileus. A unknown) distal colonic obstruction in the sigmoid colon is (unknown) (no (unknown) (unknown) in the phase of (units (unknown) date) enhancement. 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 (unknown) (no (unknown) (unknown) increased in size (units (unknown) date) compared to the unknown) prior studies but may be due to differences (unknown) (no (unknown) (unknown) indistinct (units (unk nown) date) margins. This unknown) measures up to 2.5 x 1.7 cm in transverse dimension (unknown) (no (unknown) (unknown) level. There is (units (unknown) date) fluid distention unknown) within the ascending, transverse, and (unknown) (no (unknown) (unknown) likely given the (units (unknown) date) gradual unknown) transition. (unknown) (no (unknown) (unknown) likely mild (units (un known) date) colitis. No unknown) definite evidence of obstruction. There are (unknown) (no (unknown) (unknown) lung bases to the (units (unknown) date) pubic symphysis. unknown) Coronal and sagittal reformats were (unknown) (no (unknown) (unknown) of mA and/or kV (units (unknown) date) according to unknown) patient size. (unknown) (no (unknown) (unknown) phase of (units (unkno wn) date) enhancement. unknown) (unknown) (no (unknown) (unknown) radiation dose (units (unknown) date) reduction, the unknown) following was used: automated exposure control, (unknown) (no (unknown) (unknown) slightly (units (unkno wn) date) increased in size unknown) compared to the prior studies which may be due to (unknown) (no (unknown) (unknown) thickness. There (units (unknown) date) is mild segmental unknown) distention of the distal ileum with an air- (unknown) (no (unknown) (unknown) transition in the (units (unknown) date) distal sigmoid unknown) colon. Findings likely reflect a (unknown) (no (unknown) (unknown) with air-fluid (units (unknown) date) levels. Mild unknown) fluid distention also demonstrated within the (unknown) (no (unknown) (unknown) with minimal (units (u nknown) date) colonic wall unknown) thickening and pericolonic fat stranding. There is a (unknown) (no (unknown) (unknown) [id number] (units (unkno wn) date) unknown) (unknown) (no (unknown) (unknown) 01/03/2021, (units (unk nown) date) unknown) (unknown) (no (unknown) (unknown) Accession Number: (units (unknown) date) [id number] unknown) (unknown) (no (unknown) (unknown) Age/Sex: 26 / F (units (unknown) date) Date of Service: unknown) (unknown) (no (unknown) (unknown) : 1995 (units (unknown) date) Acct:[id number] unknown) (unknown) (no (unknown) (unknown) Loc: ED (units (unkno wn) date) unknown) (unknown) (no (unknown) (unknown) Ordering (units (unkno wn) date) Provider: unknown) Mario Ashraf D.O. (unknown) (no (unknown) (unknown) PROCEDURE: CT (units (unknown) date) ABDOMEN PELVIS W unknown) CON (unknown) (no (unknown) (unknown) Patient: (units (unkno wn) date) Chelsea Lebron M unknown) MR#: [id number] (unknown) (no (unknown) (unknown) Procedure: CT (units ( unknown) date) abdomen pelvis w unknown) con (unknown) (no (unknown) (unknown) adjustment (units (unk nown) date) unknown) (unknown) (no (unknown) (unknown) appears (units (unkno wn) date) unknown) (unknown) (no (unknown) (unknown) descending colon (units (unknown) date) unknown) (unknown) (no (unknown) (unknown) differences (units (un known) date) unknown) (unknown) (no (unknown) (unknown) fluid (units (unkno wn) date) unknown) (unknown) (no (unknown) (unknown) from the (units (unkno wn) date) unknown) (unknown) (no (unknown) (unknown) gastroenteritis (units (unknown) date) with unknown) (unknown) (no (unknown) (unknown) gradual (units (unkno wn) date) unknown) (unknown) (no (unknown) (unknown) in the (units (unkno wn) date) unknown) (unknown) (no (unknown) (unknown) less (units (unkno wn) date) unknown) (unknown) (no (unknown) (unknown) lobe with (units (unkn own) date) unknown) (unknown) (no (unknown) (unknown) performed. For (units (unknown) date) unknown) (unknown) (no (unknown) (unknown) postsurgical (units (u nknown) date) unknown) (unknown) (no (unknown) (unknown) representing a (units (unknown) date) unknown) (unknown) (no (unknown) (unknown) secondary to (units (u nknown) date) unknown) (unknown) (no (unknown) (unknown) sigmoid colon (units ( unknown) date) unknown) (unknown) (no (unknown) (unknown) small (units (unkno wn) date) unknown) (unknown) (no (unknown) (unknown) wall (units (unkno wn) date) unknown) (unknown) (no (unknown) (unknown) which is (units (unkno wn) date) unknown) Result panel 14 (unknown) (no date) (unknown) (unknown) Negative (units (unkn own) unknown) Result panel 15 (unknown) (no (unknown) (unknown) (no value) (units (unk nown) date) unknown) (unknown) (no (unknown) (unknown) Radiologist's (units ( unknown) date) Impression: unknown) (unknown) (no (unknown) (unknown) (no value) (units (unk nown) date) unknown) (unknown) (no (unknown) (unknown) Date of Service: (units (unknown) date) 01/15/22 unknown) (unknown) (no (unknown) (unknown) (no value) (units (unk nown) date) unknown) (unknown) (no (unknown) (unknown) 01/14/22 18:35 (units (unknown) date) unknown) (unknown) (no (unknown) (unknown) [address] [place] [address] (units (unknown) date) unknown) (unknown) (no (unknown) (unknown) Admin: 01/14/22 (units (unknown) date) 18:54 Dose: 150 unknown) mls/hr (unknown) (no (unknown) (unknown) Allergies (units (unkn own) date) unknown) (unknown) (no (unknown) ([place] [address] (unit s (unknown) date) unknown) (unknown) (no (unknown) (unknown) Documented by: (units (unknown) date) [email or web address] unknown) (unknown) (no (unknown) (unknown) Documented by: (units (unknown) date) EDU.ASEXTO unknown) (unknown) (no (unknown) (unknown) Documented by: (units (unknown) date) JCULLETON unknown) (unknown) (no (unknown) (unknown) ED Orders (units (unkn own) date) unknown) (unknown) (no (unknown) (unknown) Emergency Report (units (unknown) date) unknown) (unknown) (no (unknown) (unknown) Home Medications (units (unknown) date) unknown) (unknown) (no (unknown) (unknown) Infusion: 01/14/22 (units (unknown) date) 22:02 Dose: 0 unknown) mls/hr (unknown) (no (unknown) (unknown) Infusion: 01/15/22 (units (unknown) date) 03:12 Dose: 100 unknown) mls/hr (unknown) (no (unknown) (unknown) [facility] (units (unknown) date) unknown) (unknown) (no (unknown) (unknown) [facility] (units (unknown) date) [address] [place] [address] unknown) [place] [address] (unknown) (no (unknown) (unknown) Lab Results (units (un known) date) unknown) (unknown) (no (unknown) (unknown) Last Admin: (units (un known) date) 01/14/22 18:53 unknown) Dose: 40 mg (unknown) (no (unknown) (unknown) Last Admin: (units (un known) date) 01/14/22 20:07 unknown) Dose: 0.5 mg (unknown) (no (unknown) (unknown) Last Admin: (units (un known) date) 01/14/22 20:07 unknown) Dose: 125 mg (unknown) (no (unknown) (unknown) Last Admin: (units (un known) date) 01/14/22 20:07 unknown) Dose: 4 mg (unknown) (no (unknown) (unknown) Last Admin: (units (un known) date) 01/14/22 21:18 unknown) Dose: 25 mg (unknown) (no (unknown) (unknown) Last Admin: (units (un known) date) 01/14/22 23:48 unknown) Dose: 0.5 mg (unknown) (no (unknown) (unknown) Last Admin: (units (un known) date) 01/14/22 23:48 unknown) Dose: 1,000 mls/hr (unknown) (no (unknown) (unknown) Last Admin: (units (un known) date) 01/15/22 03:12 unknown) Dose: 100 mls/hr (unknown) (no (unknown) (unknown) Last Admin: (units (un known) date) 01/15/22 03:12 unknown) Dose: 15 mg (unknown) (no (unknown) (unknown) Last Admin: (units (un known) date) 01/15/22 03:12 unknown) Dose: 4 mg (unknown) (no (unknown) (unknown) Last Admin: (units (un known) date) 01/15/22 04:09 unknown) Dose: 0.5 mg (unknown) (no (unknown) (unknown) Launch?Image (units (u nknown) date) unknown) (unknown) (no (unknown) (unknown) PRN Reason: (units (un known) date) Breakthrough pain unknown) only (8-10) (unknown) (no (unknown) (unknown) PRN Reason: (units (un known) date) Fever/Mild Pain unknown) (1-3) (unknown) (no (unknown) (unknown) PRN Reason: Nausea (units (unknown) date) And Vomiting unknown) (unknown) (no (unknown) (unknown) PRN Reason: Opiate (units (unknown) date) Reversal unknown) (unknown) (no (unknown) (unknown) PRN Reason: Pain, (units (unknown) date) Moderate (4-6) unknown) (unknown) (no (unknown) (unknown) Point of Care (units ( unknown) date) Testing unknown) (unknown) (no (unknown) (unknown) Previous Rx's (units ( unknown) date) unknown) (unknown) (no (unknown) (unknown) Signed (units (unkno wn) date) unknown) (unknown) (no (unknown) (unknown) Stop: 01/14/22 (units (unknown) date) 18:08 unknown) (unknown) (no (unknown) (unknown) Stop: 01/14/22 (units (unknown) date) 19:52 unknown) (unknown) (no (unknown) (unknown) Stop: 01/14/22 (units (unknown) date) 19:53 unknown) (unknown) (no (unknown) (unknown) Stop: 01/14/22 (units (unknown) date) 21:10 unknown) (unknown) (no (unknown) (unknown) Stop: 01/14/22 (units (unknown) date) 23:43 unknown) (unknown) (no (unknown) (unknown) Stop: 01/15/22 (units (unknown) date) 00:39 unknown) (unknown) (no (unknown) (unknown) Stop: 01/18/22 (units (unknown) date) 02:59 unknown) (unknown) (no (unknown) (unknown) Urine Dip (units (unkn own) date) unknown) (unknown) (no (unknown) (unknown) Vital Signs - 8 hr (units (unknown) date) unknown) (unknown) (no (unknown) (unknown) XRay Report (units (un known) date) unknown) (unknown) (no (unknown) (unknown) (no value) (units (unk nown) date) unknown) (unknown) (no (unknown) (unknown) 01/14/22 01/14/22 (units (unknown) date) 01/14/22 Range/Units unknown) (unknown) (no (unknown) (unknown) 18:35 18:35 18:35 (units (unknown) date) unknown) (unknown) (no (unknown) (unknown) 01/14/22 (units (unkno wn) date) unknown) (unknown) (no (unknown) (unknown) 01/15/22 (units (unkno wn) date) unknown) (unknown) (no (unknown) (unknown) Medication (units (unk nown) date) Instructions unknown) Recorded (unknown) (no (unknown) (unknown) Medication (units (unk nown) date) Instructions unknown) Recorded Confirmed (unknown) (no (unknown) (unknown) 00:00 (units (unkno wn) date) unknown) (unknown) (no (unknown) (unknown) 00:30 (units (unkno wn) date) unknown) (unknown) (no (unknown) (unknown) [id number] (units (unkno wn) date) unknown) (unknown) (no (unknown) (unknown) 01/14/22 19:51 (units (unknown) date) unknown) (unknown) (no (unknown) (unknown) 01/14/22 21:10 (units (unknown) date) unknown) (unknown) (no (unknown) (unknown) 01/15/22 23:52 (units (unknown) date) unknown) (unknown) (no (unknown) (unknown) 20:30 01/14/22 (units (unknown) date) unknown) (unknown) (no (unknown) (unknown) 20:32 01/14/22 (units (unknown) date) unknown) (unknown) (no (unknown) (unknown) 21:00 (units (unkno wn) date) unknown) (unknown) (no (unknown) (unknown) 21:30 01/14/22 (units (unknown) date) unknown) (unknown) (no (unknown) (unknown) 22:00 01/14/22 (units (unknown) date) unknown) (unknown) (no (unknown) (unknown) 22:30 (units (unkno wn) date) unknown) (unknown) (no (unknown) (unknown) 23:00 01/14/22 (units (unknown) date) unknown) (unknown) (no (unknown) (unknown) 23:30 01/15/22 (units (unknown) date) unknown) (unknown) (no (unknown) (unknown) ? (units (unkno wn) date) unknown) (unknown) (no (unknown) (unknown) ALT 18 (<35) (units (unknown) date) IU/L unknown) (unknown) (no (unknown) (unknown) AST 24 (14-36) (units (unknown) date) IU/L unknown) (unknown) (no (unknown) (unknown) Abdomen:? Bowel gas (unit s (unknown) date) pattern is normal.? unknown) No suspicious calcifications.? (unknown) (no (unknown) (unknown) Abdominal x-ray: (units (unknown) date) unknown) (unknown) (no (unknown) (unknown) Accession Number: (units (unknown) date) [id number] ?? unknown) (unknown) (no (unknown) (unknown) Acct:[id number] (units (unknown) date) unknown) (unknown) (no (unknown) (unknown) Acetaminophen (units ( unknown) date) (Acetaminophen 325 unknown) Mg Tablet) 650 mg PO Q6HR PRN (unknown) (no (unknown) (unknown) Admit Date/Time: (units (unknown) date) 01/15/22 00:58 unknown) (unknown) (no (unknown) (unknown) Admit Provider: (units (unknown) date) Radha House unknown) (unknown) (no (unknown) (unknown) Age/Sex: 26 / F (units (unknown) date) unknown) (unknown) (no (unknown) (unknown) Age/Sex: 26 / F (units (unknown) date) unknown) (unknown) (no (unknown) (unknown) Albumin 4.6 (units ( unknown) date) (3.5-5.0) g/dL unknown) (unknown) (no (unknown) (unknown) Albumin/Globulin (units (unknown) date) Ratio 1.3 unknown) (1.0-2.8) (unknown) (no (unknown) (unknown) Alkaline (units (unkno wn) date) Phosphatase 127 H unknown) (38-126) U/L (unknown) (no (unknown) (unknown) Allergy/AdvReac (units (unknown) date) Type Severity unknown) Reaction Status Date / Time (unknown) (no (unknown) (unknown) Antibody Screen (units (unknown) date) Negative unknown) (unknown) (no (unknown) (unknown) Anxiety (units (unkno wn) date) unknown) (unknown) (no (unknown) (unknown) Approved by: Víctor Southunits (unknown) datePedro Bender M.D. on unknown) 01/14/2022 at 19:30? (unknown) (no (unknown) (unknown) BUN 10 (7-17) (units (unknown) date) mg/dL unknown) (unknown) (no (unknown) (unknown) BUN/Creatinine (units (unknown) date) Ratio 16.1 unknown) (6-22) (unknown) (no (unknown) (unknown) Baso # (Auto) 0 (units (unknown) date) (0-100) /uL unknown) (unknown) (no (unknown) (unknown) Baso % (Auto) 0.3 (units (unknown) date) (0-2) % unknown) (unknown) (no (unknown) (unknown) Bedside Urine (units ( unknown) date) Bilirubin - unknown) Negative (unknown) (no (unknown) (unknown) Bedside Urine (units ( unknown) date) Glucose Negative unknown) (unknown) (no (unknown) (unknown) Bedside Urine (units ( unknown) date) Ketone - Negative unknown) (unknown) (no (unknown) (unknown) Bedside Urine (units ( unknown) date) Leukocytes - unknown) Negative (unknown) (no (unknown) (unknown) Bedside Urine (units ( unknown) date) Nitrite - unknown) Negative (unknown) (no (unknown) (unknown) Bedside Urine (units ( unknown) date) Occult Blood - unknown) Negative (unknown) (no (unknown) (unknown) Bedside Urine (units ( unknown) date) Protein - unknown) Negative (unknown) (no (unknown) (unknown) Bedside Urine (units ( unknown) date) Urobilinogen - unknown) Negative (unknown) (no (unknown) (unknown) Bedside Urine pH (units (unknown) date) 6.0 unknown) (unknown) (no (unknown) (unknown) Blood Pressure (units (unknown) date) unknown) (unknown) (no (unknown) (unknown) Blood Pressure (units (unknown) date) unknown) (unknown) (no (unknown) (unknown) Blood Pressure (units (unknown) date) 129/84 01/14/22 unknown) 15:37 (unknown) (no (unknown) (unknown) Blood Pressure (units (unknown) date) 120/77 120/77 119/78 unknown) (unknown) (no (unknown) (unknown) Blood Type O (units (unknown) date) Positive unknown) (unknown) (no (unknown) (unknown) Bones:? No (units (unk nown) date) suspicious bony unknown) lesions.? (unknown) (no (unknown) (unknown) COMPARISON:? None. (units (unknown) date) unknown) (unknown) (no (unknown) (unknown) COVID19 -Nasal (units (unknown) date) RAPID/Pre-Proc Stat unknown) (unknown) (no (unknown) (unknown) CT abdomen pelvis w (unit s (unknown) date) con Stat unknown) (unknown) (no (unknown) (unknown) Calcium 9.4 (units ( unknown) date) (8.4-10.2) mg/dL unknown) (unknown) (no (unknown) (unknown) Carbon Dioxide 20 (unit s (unknown) date) L (22-32) mmol/L unknown) (unknown) (no (unknown) (unknown) Chest:? Lungs are (units (unknown) date) clear.? Heart size unknown) is normal.? No pleural effusions.? No (unknown) (no (unknown) (unknown) Chief Complaint: (units (unknown) date) Abdominal Pain unknown) (unknown) (no (unknown) (unknown) Chloride 106 (units (unknown) date) (98-107) mmol/L unknown) (unknown) (no (unknown) (unknown) Course (units (unkno wn) date) unknown) (unknown) (no (unknown) (unknown) Creatinine 0.62 (units (unknown) date) (0.52-1.04) mg/dL unknown) (unknown) (no (unknown) (unknown) : 1995 (units (unknown) date) Acct:[id number] unknown) (unknown) (no (unknown) (unknown) : 1995 (units (unknown) date) unknown) (unknown) (no (unknown) (unknown) Date of Service: (units (unknown) date) 01/14/22 unknown) (unknown) (no (unknown) (unknown) Departure (units (unkn own) date) unknown) (unknown) (no (unknown) (unknown) Dictated by: Víctor (units (unknown) date) Richard Bender on unknown) 01/14/2022 at 19:29 ? ? (unknown) (no (unknown) (unknown) Diphenhydramine HCl (unit s (unknown) date) (Diphenhydramine 50 unknown) Mg/Ml Vial) 25 mg IV NOW ONE (unknown) (no (unknown) (unknown) Discharge Plan (units (unknown) date) unknown) (unknown) (no (unknown) (unknown) Discontinued (units (u nknown) date) Medications unknown) (unknown) (no (unknown) (unknown) Docusate Sodium (units (unknown) date) (Docusate 100 Mg unknown) Capsule) 100 mg PO BID JERMAIN (unknown) (no (unknown) (unknown) ER Physician: (units ( unknown) date) Mario Ashraf D.O. unknown) (unknown) (no (unknown) (unknown) Enoxaparin Sodium (units (unknown) date) (Enoxaparin 40 unknown) Mg/0.4 Ml Syringe) 40 mg SUBCUT DAILY JERMAIN (unknown) (no (unknown) (unknown) Eos # (Auto) 0 (units (unknown) date) (0-450) /uL unknown) (unknown) (no (unknown) (unknown) Eos % (Auto) 0.2 L (unit s (unknown) date) (2-4) % unknown) (unknown) (no (unknown) (unknown) Esterase (units (unkno wn) date) unknown) (unknown) (no (unknown) (unknown) Estimated GFR > (units (unknown) date) 60 (>60) mL/min unknown) (unknown) (no (unknown) (unknown) Exam (units (unkno wn) date) unknown) (unknown) (no (unknown) (unknown) Exercise-induced (units (unknown) date) asthma unknown) (unknown) (no (unknown) (unknown) FINDINGS:? (units (unk nown) date) unknown) (unknown) (no (unknown) (unknown) General (units (unkno wn) date) unknown) (unknown) (no (unknown) (unknown) GenericComposite[Pl (unit s (unknown) date) t Count 367 unknown) (150-400) X10^3/uL ] (unknown) (no (unknown) (unknown) GenericComposite[RB (unit s (unknown) date) C 4.72 (4.0-5.2) unknown) X10^6/uL ] (unknown) (no (unknown) (unknown) GenericComposite[WB (unit s (unknown) date) C 13.4 H unknown) (4.5-11.0) X10^3/uL ] (unknown) (no (unknown) (unknown) Globulin 3.5 (units (unknown) date) (1.7-4.1) g/dL unknown) (unknown) (no (unknown) (unknown) Glucose 93 (units (u nknown) date) (70-100) mg/dL unknown) (unknown) (no (unknown) (unknown) HPI - Abdominal (units (unknown) date) Pain unknown) (unknown) (no (unknown) (unknown) Hct 43.1 (units (unkn own) date) (36-46) % unknown) (unknown) (no (unknown) (unknown) Hgb 15.2 (units (unkn own) date) (12.0-16.0) g/dL unknown) (unknown) (no (unknown) (unknown) Hydromorphone HCl (units (unknown) date) (Hydromorphone 0.5 unknown) Mg Inj) 0.5 mg IV NOW ONE (unknown) (no (unknown) (unknown) Hydromorphone HCl (units (unknown) date) (Hydromorphone 0.5 unknown) Mg Inj) 0.5 mg IV Q4H PRN (unknown) (no (unknown) (unknown) IMPRESSION:? No (units (unknown) date) evidence of bowel unknown) obstruction or gross free air. (unknown) (no (unknown) (unknown) INDICATIONS:? (units ( unknown) date) Abdominal pain unknown) (unknown) (no (unknown) (unknown) Imaging Data (units (u nknown) date) unknown) (unknown) (no (unknown) (unknown) Initial Vital Signs (unit s (unknown) date) unknown) (unknown) (no (unknown) (unknown) Initial Vital (units ( unknown) date) Signs: unknown) (unknown) (no (unknown) (unknown) Ketorolac (units (unkn own) date) Tromethamine unknown) (Ketorolac 30 Mg/Ml Vial) 15 mg IV Q6H PRN (unknown) (no (unknown) (unknown) Lab Data (units (unkno wn) date) unknown) (unknown) (no (unknown) (unknown) Labs: (units (unkno wn) date) unknown) (unknown) (no (unknown) (unknown) Lipase 42 (units (un known) date) (23-300) U/L unknown) (unknown) (no (unknown) (unknown) Loc: ED (units (unkno wn) date) unknown) (unknown) (no (unknown) (unknown) Lupus (units (unkno wn) date) unknown) (unknown) (no (unknown) (unknown) Lymph # (Auto) (units (unknown) date) 2400 ([id number]) unknown) /uL (unknown) (no (unknown) (unknown) Lymph % (Auto) (units (unknown) date) 18.1 L (25-40) % unknown) (unknown) (no (unknown) (unknown) MCH 32.1 (units (unkn own) date) (26-34) PG unknown) (unknown) (no (unknown) (unknown) MCHC 35.1 (units (unk nown) date) (30-36) % unknown) (unknown) (no (unknown) (unknown) MCV 91.4 (units (unkn own) date) (80-100) fL unknown) (unknown) (no (unknown) (unknown) MDM - Abdominal (units (unknown) date) Pain unknown) (unknown) (no (unknown) (unknown) MR#: [id number] (units (unknown) date) unknown) (unknown) (no (unknown) (unknown) Medical History (units (unknown) date) (Updated 01/10/22 @ unknown) 02:38 by Chanell Sahni MD) (unknown) (no (unknown) (unknown) Methylprednisolone (units (unknown) date) (Methylprednisolone unknown) 125 Mg/2 Ml Vial) 125 mg IV NOW ONE (unknown) (no (unknown) (unknown) Mode of arrival: (units (unknown) date) Family Vehicle unknown) (unknown) (no (unknown) (unknown) Reagan # (Auto) 400 (units (unknown) date) (0-900) /uL unknown) (unknown) (no (unknown) (unknown) Reagan % (Auto) 3.2 (units (unknown) date) (3-14) % unknown) (unknown) (no (unknown) (unknown) Naloxone HCl (units (u nknown) date) (Naloxone 0.4 Mg/Ml unknown) Vial) 0.2 mg IV Q2MIN PRN (unknown) (no (unknown) (unknown) Neut # (Auto) (units ( unknown) date) 90688 H unknown) (6282-2295) /uL (unknown) (no (unknown) (unknown) Neut % (Auto) 78.2 (unit s (unknown) date) H (50-75) % unknown) (unknown) (no (unknown) (unknown) No acute (units (unkno wn) date) cardiopulmonary unknown) pathology.? (unknown) (no (unknown) (unknown) Ondansetron HCl (units (unknown) date) (Ondansetron 4 Mg/2 unknown) Ml Inj) 4 mg IV NOW ONE (unknown) (no (unknown) (unknown) Ondansetron HCl (units (unknown) date) (Ondansetron 4 Mg/2 unknown) Ml Inj) 4 mg IV Q6HR PRN (unknown) (no (unknown) (unknown) Ordered: (units (unkno wn) date) unknown) (unknown) (no (unknown) (unknown) Ordering Provider: (units (unknown) date) Mario Ashraf D.O. unknown) (unknown) (no (unknown) (unknown) Orders (units (unkno wn) date) unknown) (unknown) (no (unknown) (unknown) PROCEDURE:? XR (units (unknown) date) ACUTE ABDOMEN SERIES unknown) (unknown) (no (unknown) (unknown) Pantoprazole Sodium (unit s (unknown) date) (Pantoprazole 40 Mg unknown) Vial) 40 mg IV NOW ONE (unknown) (no (unknown) (unknown) Patient History (units (unknown) date) unknown) (unknown) (no (unknown) (unknown) Patient: (units (unkno wn) date) Chelsea Lebron unknown) MR#: [id number] (unknown) (no (unknown) (unknown) Patient: (units (unkno wn) date) Chelsea Lebron unknown) (unknown) (no (unknown) (unknown) Penicillins (units (un known) date) [PENICILLINS] unknown) Allergy Unknown Verified 11/15/21 14:12 (unknown) (no (unknown) (unknown) Point of care (units ( unknown) date) testing: unknown) (unknown) (no (unknown) (unknown) Potassium 3.7 (units (unknown) date) (3.4-5.1) mmol/L unknown) (unknown) (no (unknown) (unknown) Test (units (unknown) date) Results Negative unknown) (unknown) (no (unknown) (unknown) Procedure: XR acute (unit s (unknown) date) abdomen series unknown) (unknown) (no (unknown) (unknown) Pulse Oximetry 100 (unit s (unknown) date) 01/14/22 15:37 unknown) (unknown) (no (unknown) (unknown) Pulse Oximetry 100 (units (unknown) date) 100 99 unknown) (unknown) (no (unknown) (unknown) Pulse Oximetry 97 (units (unknown) date) unknown) (unknown) (no (unknown) (unknown) Pulse Oximetry 99 (units (unknown) date) 99 unknown) (unknown) (no (unknown) (unknown) Pulse Oximetry 99 (units (unknown) date) 97 98 unknown) (unknown) (no (unknown) (unknown) Pulse Rate 100 H (units (unknown) date) 01/14/22 15:37 unknown) (unknown) (no (unknown) (unknown) Pulse Rate 106 H (units (unknown) date) 120 H 121 H unknown) (unknown) (no (unknown) (unknown) Pulse Rate 117 H (units (unknown) date) 117 H unknown) (unknown) (no (unknown) (unknown) Pulse Rate 122 H (units (unknown) date) 123 H 135 H unknown) (unknown) (no (unknown) (unknown) Pulse Rate 124 H (units (unknown) date) unknown) (unknown) (no (unknown) (unknown) RDW 12.5 (units (unkn own) date) (11.6-14.8) % unknown) (unknown) (no (unknown) (unknown) Related Data (units (u nknown) date) unknown) (unknown) (no (unknown) (unknown) Respiratory Rate (units (unknown) date) 16 01/14/22 15:37 unknown) (unknown) (no (unknown) (unknown) Result diagrams: (units (unknown) date) unknown) (unknown) (no (unknown) (unknown) Signed By: (units (unk nown) date) unknown) (unknown) (no (unknown) (unknown) Smoking Status: (units (unknown) date) Never smoker unknown) (unknown) (no (unknown) (unknown) Smoking Status: (units (unknown) date) Never smoker unknown) (unknown) (no (unknown) (unknown) Social History (units (unknown) date) (Reviewed 01/10/22 @ unknown) 00:56 by Chanell Sahni MD) (unknown) (no (unknown) (unknown) Sodium 137 (units (u nknown) date) (137-145) mmol/L unknown) (unknown) (no (unknown) (unknown) Sodium Chloride (units (unknown) date) (Normal Saline 0.9%) unknown) 1,000 mls @ 1,000 mls/hr IV BOLUS ONE (unknown) (no (unknown) (unknown) Sodium Chloride (units (unknown) date) (Normal Saline 0.9%) unknown) 1,000 mls @ 100 mls/hr IV CONT JERMAIN (unknown) (no (unknown) (unknown) Stated Complaint: (units (unknown) date) THROWING UP BLOOD unknown) LOWER ABD (unknown) (no (unknown) (unknown) Substance Use Type: (unit s (unknown) date) marijuana unknown) (unknown) (no (unknown) (unknown) Surgical changes (units (unknown) date) and devices:? unknown) Surgical clips are seen in right pelvic region (unknown) (no (unknown) (unknown) TECHNIQUE:? One (units (unknown) date) view chest and two unknown) views of the abdomen were acquired.? (unknown) (no (unknown) (unknown) Temperature 97.6 F (unit s (unknown) date) 01/14/22 15:37 unknown) (unknown) (no (unknown) (unknown) Time Seen by (units (u nknown) date) Provider: 01/14/22 unknown) 18:06 (unknown) (no (unknown) (unknown) Total Bilirubin (units (unknown) date) 0.5 (0.2-1.3) unknown) mg/dL (unknown) (no (unknown) (unknown) Total Protein 8.1 (unit s (unknown) date) (6.3-8.2) g/dL unknown) (unknown) (no (unknown) (unknown) US pelvic complete (units (unknown) date) Stat unknown) (unknown) (no (unknown) (unknown) Urine Specific (units (unknown) date) Moore 1.020 unknown) (unknown) (no (unknown) (unknown) Visualized solid (units (unknown) date) unknown) (unknown) (no (unknown) (unknown) Vital Signs (units (un known) date) unknown) (unknown) (no (unknown) (unknown) Vital signs: (units (u nknown) date) unknown) (unknown) (no (unknown) (unknown) [Embedded Image Not (unit s (unknown) date) Available] unknown) (unknown) (no (unknown) (unknown) aerosol inhaler (units (unknown) date) gram unknown) (unknown) (no (unknown) (unknown) albuterol sulfate (units (unknown) date) 90 mcg/actuation 2 unknown) puff INHALATION Q4-6H PRN #18 06/05/19 (unknown) (no (unknown) (unknown) alcohol intake (units (unknown) date) frequency: unknown) holidays/special occasions only (unknown) (no (unknown) (unknown) capsule,extended (units (unknown) date) release 24 hr unknown) (unknown) (no (unknown) (unknown) clinical (units (unkno wn) date) correlation. unknown) (unknown) (no (unknown) (unknown) cyclobenzaprine 10 (units (unknown) date) mg tablet 10 mg PO unknown) TID PRN #12 tab 10/18/19 (unknown) (no (unknown) (unknown) doxycycline (units (un known) date) [DOXYCYCLINE] unknown) Allergy Unknown Verified 11/15/21 14:12 (unknown) (no (unknown) (unknown) famotidine 40 mg (units (unknown) date) tablet 40 mg PO unknown) DAILY #7 tab 05/14/21 (unknown) (no (unknown) (unknown) hydrocodone (units (un known) date) [HYDROCODONE] unknown) Allergy Unknown Verified 11/15/21 14:12 (unknown) (no (unknown) (unknown) lidocaine Allergy (units (unknown) date) Verified 11/15/21 unknown) 14:12 (unknown) (no (unknown) (unknown) ondansetron 4 mg (units (unknown) date) disintegrating 4 mg unknown) PO 01/15/22 (unknown) (no (unknown) (unknown) organ contours (units (unknown) date) appear normal.? unknown) (unknown) (no (unknown) (unknown) pantoprazole 40 mg (units (unknown) date) tablet,delayed 40 mg unknown) PO DAILY 01/15/22 01/15/22 (unknown) (no (unknown) (unknown) pneumoperitoneum.? (units (unknown) date) unknown) (unknown) (no (unknown) (unknown) release (units (unkno wn) date) unknown) (unknown) (no (unknown) (unknown) shellfish derived (units (unknown) date) Allergy Anaphylaxis unknown) Verified 11/15/21 14:12 (unknown) (no (unknown) (unknown) suggest (units (unkno wn) date) unknown) (unknown) (no (unknown) (unknown) tablet (units (unkno wn) date) unknown) (unknown) (no (unknown) (unknown) venlafaxine 150 mg (units (unknown) date) 150 mg PO DAILY unknown) 01/15/22 01/15/22 Result panel 16 (unknown) (no (unknown) (unknown) (no value) (units (unk nown) date) unknown) (unknown) (no (unknown) (unknown) (no value) (units (unk nown) date) unknown) (unknown) (no (unknown) (unknown) Date of Service: (units (unknown) date) 01/15/22 unknown) (unknown) (no (unknown) (unknown) (no value) (units (unk nown) date) unknown) (unknown) (no (unknown) (unknown) - (units (unkno wn) date) unknown) (unknown) (no (unknown) (unknown) 01/14/22 18:35 (units (unknown) date) unknown) (unknown) (no (unknown) (unknown) Allergies (units (unkn own) date) unknown) (unknown) (no (unknown) (unknown) History + (units (unkn own) date) Physical Report unknown) (unknown) (no (unknown) (unknown) Home Medications (units (unknown) date) unknown) (unknown) (no (unknown) (unknown) [facility] (units (unknown) date) [address] unknown) [place] [id number] (unknown) (no (unknown) (unknown) Laboratory (units (unk nown) date) Results - last 24 unknown) hr (unknown) (no (unknown) (unknown) (no value) (units (unk nown) date) unknown) (unknown) (no (unknown) (unknown) 01/14/22 01/14/22 (units (unknown) date) 01/14/22 unknown) (unknown) (no (unknown) (unknown) 01/15/22 (units (unkno wn) date) unknown) (unknown) (no (unknown) (unknown) 18:35 18:35 18:35 (units (unknown) date) unknown) (unknown) (no (unknown) (unknown) 23:52 (units (unkno wn) date) unknown) (unknown) (no (unknown) (unknown) 01/14/22 (units (unkno wn) date) unknown) (unknown) (no (unknown) (unknown) 01/15/22 (units (unkno wn) date) unknown) (unknown) (no (unknown) (unknown) Medication (units (unk nown) date) Instructions unknown) Recorded Confirmed Type (unknown) (no (unknown) (unknown) (past 8 hours): (units (unknown) date) unknown) (unknown) (no (unknown) (unknown) 00:00 (units (unkno wn) date) unknown) (unknown) (no (unknown) (unknown) 00:30 01/15/22 (units (unknown) date) unknown) (unknown) (no (unknown) (unknown) 01:15 01/15/22 (units (unknown) date) unknown) (unknown) (no (unknown) (unknown) 01:16 (units (unkno wn) date) unknown) (unknown) (no (unknown) (unknown) 01:30 01/15/22 (units (unknown) date) unknown) (unknown) (no (unknown) (unknown) 01:40 01/15/22 (units (unknown) date) unknown) (unknown) (no (unknown) (unknown) 02:54 (units (unkno wn) date) unknown) (unknown) (no (unknown) (unknown) [id number] (units (unkno wn) date) unknown) (unknown) (no (unknown) (unknown) 20:30 01/14/22 (units (unknown) date) unknown) (unknown) (no (unknown) (unknown) 20:32 01/14/22 (units (unknown) date) unknown) (unknown) (no (unknown) (unknown) 21:00 (units (unkno wn) date) unknown) (unknown) (no (unknown) (unknown) 21:30 01/14/22 (units (unknown) date) unknown) (unknown) (no (unknown) (unknown) 22:00 01/14/22 (units (unknown) date) unknown) (unknown) (no (unknown) (unknown) 22:30 (units (unkno wn) date) unknown) (unknown) (no (unknown) (unknown) 23:00 01/14/22 (units (unknown) date) unknown) (unknown) (no (unknown) (unknown) 23:30 01/15/22 (units (unknown) date) unknown) (unknown) (no (unknown) (unknown) ALT (units (unkno wn) date) unknown) (unknown) (no (unknown) (unknown) ALT 18 (units (unkno wn) date) unknown) (unknown) (no (unknown) (unknown) AST (units (unkno wn) date) unknown) (unknown) (no (unknown) (unknown) AST 24 (units (unkno wn) date) unknown) (unknown) (no (unknown) (unknown) Age/Sex: 26 / F (units (unknown) date) unknown) (unknown) (no (unknown) (unknown) Albumin (units (unkno wn) date) unknown) (unknown) (no (unknown) (unknown) Albumin 4.6 (units ( unknown) date) unknown) (unknown) (no (unknown) (unknown) Albumin/Globulin (units (unknown) date) Ratio unknown) (unknown) (no (unknown) (unknown) Albumin/Globulin (units (unknown) date) Ratio 1.3 unknown) (unknown) (no (unknown) (unknown) Alkaline (units (unkno wn) date) Phosphatase unknown) (unknown) (no (unknown) (unknown) Alkaline (units (unkno wn) date) Phosphatase 127 unknown) H (unknown) (no (unknown) (unknown) Allergy/AdvReac (units (unknown) date) Type Severity unknown) Reaction Status Date / Time (unknown) (no (unknown) (unknown) Antibody Screen (units (unknown) date) Negative unknown) (unknown) (no (unknown) (unknown) Antibody Screen (units (unknown) date) unknown) (unknown) (no (unknown) (unknown) Anxiety (units (unkno wn) date) unknown) (unknown) (no (unknown) (unknown) Assessment + Plan (units (unknown) date) unknown) (unknown) (no (unknown) (unknown) BUN (units (unkno wn) date) unknown) (unknown) (no (unknown) (unknown) BUN 10 (units (unkno wn) date) unknown) (unknown) (no (unknown) (unknown) BUN/Creatinine (units (unknown) date) Ratio unknown) (unknown) (no (unknown) (unknown) BUN/Creatinine (units (unknown) date) Ratio 16.1 unknown) (unknown) (no (unknown) (unknown) Baso # (Auto) (units ( unknown) date) unknown) (unknown) (no (unknown) (unknown) Baso # (Auto) 0 (units (unknown) date) unknown) (unknown) (no (unknown) (unknown) Baso % (Auto) (units ( unknown) date) unknown) (unknown) (no (unknown) (unknown) Baso % (Auto) (units ( unknown) date) 0.3 unknown) (unknown) (no (unknown) (unknown) Been Physically (units (unknown) date) Hurt or No unknown) (unknown) (no (unknown) (unknown) Blood Pressure (units (unknown) date) unknown) (unknown) (no (unknown) (unknown) Blood Pressure (units (unknown) date) 126/65 unknown) (unknown) (no (unknown) (unknown) Blood Pressure (units (unknown) date) 137/82 unknown) (unknown) (no (unknown) (unknown) Blood Pressure (units (unknown) date) 120/77 120/77 unknown) 119/78 (unknown) (no (unknown) (unknown) Blood Type O (units (unknown) date) Positive unknown) (unknown) (no (unknown) (unknown) Blood Type (units (unk nown) date) unknown) (unknown) (no (unknown) (unknown) Calcium (units (unkno wn) date) unknown) (unknown) (no (unknown) (unknown) Calcium 9.4 (units ( unknown) date) unknown) (unknown) (no (unknown) (unknown) Carbon Dioxide (units (unknown) date) unknown) (unknown) (no (unknown) (unknown) Carbon Dioxide (units (unknown) date) 20 L unknown) (unknown) (no (unknown) (unknown) Chief complaint: (units (unknown) date) Lower abdominal unknown) pain, hematemasis melana (unknown) (no (unknown) (unknown) Chloride (units (unkno wn) date) unknown) (unknown) (no (unknown) (unknown) Chloride 106 (units (unknown) date) unknown) (unknown) (no (unknown) (unknown) Creatinine (units (unk nown) date) unknown) (unknown) (no (unknown) (unknown) Creatinine 0.62 (units (unknown) date) unknown) (unknown) (no (unknown) (unknown) Critical Care (units ( unknown) date) time: unknown) (unknown) (no (unknown) (unknown) : 1995 (units (unknown) date) Acct:[id number] unknown) (unknown) (no (unknown) (unknown) Date Patient (units (u nknown) date) Seen: 01/15/22 unknown) (unknown) (no (unknown) (unknown) Environment (units (un known) date) unknown) (unknown) (no (unknown) (unknown) Eos # (Auto) (units (u nknown) date) unknown) (unknown) (no (unknown) (unknown) Eos # (Auto) 0 (units (unknown) date) unknown) (unknown) (no (unknown) (unknown) Eos % (Auto) (units (u nknown) date) unknown) (unknown) (no (unknown) (unknown) Eos % (Auto) 0.2 (units (unknown) date) L unknown) (unknown) (no (unknown) (unknown) Estimated GFR (units ( unknown) date) unknown) (unknown) (no (unknown) (unknown) Estimated GFR > (units (unknown) date) 60 unknown) (unknown) (no (unknown) (unknown) Exam (units (unkno wn) date) unknown) (unknown) (no (unknown) (unknown) Exercise-induced (units (unknown) date) asthma unknown) (unknown) (no (unknown) (unknown) Family + Social (units (unknown) date) History unknown) (unknown) (no (unknown) (unknown) Feels Safe in (units ( unknown) date) Current Yes unknown) (unknown) (no (unknown) (unknown) Globulin (units (unkno wn) date) unknown) (unknown) (no (unknown) (unknown) Globulin 3.5 (units (unknown) date) unknown) (unknown) (no (unknown) (unknown) Glucose (units (unkno wn) date) unknown) (unknown) (no (unknown) (unknown) Glucose 93 (units (u nknown) date) unknown) (unknown) (no (unknown) (unknown) Hct (units (unkno wn) date) unknown) (unknown) (no (unknown) (unknown) Hct 43.1 (units (unkn own) date) unknown) (unknown) (no (unknown) (unknown) Hgb (units (unkno wn) date) unknown) (unknown) (no (unknown) (unknown) Hgb 15.2 (units (unkn own) date) unknown) (unknown) (no (unknown) (unknown) History of (units (unk nown) date) Present Illness unknown) (unknown) (no (unknown) (unknown) Home Medications (units (unknown) date) and Allergies unknown) (unknown) (no (unknown) (unknown) I spent a total (units (unknown) date) of [] minutes of unknown) critical care time on this patient's care (unknown) (no (unknown) (unknown) Labs (units (unkno wn) date) unknown) (unknown) (no (unknown) (unknown) Labs: (units (unkno wn) date) unknown) (unknown) (no (unknown) (unknown) Lipase (units (unkno wn) date) unknown) (unknown) (no (unknown) (unknown) Lipase 42 (units (un known) date) unknown) (unknown) (no (unknown) (unknown) Lupus (units (unkno wn) date) unknown) (unknown) (no (unknown) (unknown) Lymph # (Auto) (units (unknown) date) unknown) (unknown) (no (unknown) (unknown) Lymph # (Auto) (units (unknown) date) 2400 unknown) (unknown) (no (unknown) (unknown) Lymph % (Auto) (units (unknown) date) unknown) (unknown) (no (unknown) (unknown) Lymph % (Auto) (units (unknown) date) 18.1 L unknown) (unknown) (no (unknown) (unknown) MCH (units (unkno wn) date) unknown) (unknown) (no (unknown) (unknown) MCH 32.1 (units (unkn own) date) unknown) (unknown) (no (unknown) (unknown) MCHC (units (unkno wn) date) unknown) (unknown) (no (unknown) (unknown) MCHC 35.1 (units (unk nown) date) unknown) (unknown) (no (unknown) (unknown) MCV (units (unkno wn) date) unknown) (unknown) (no (unknown) (unknown) MCV 91.4 (units (unkn own) date) unknown) (unknown) (no (unknown) (unknown) Medical History (units (unknown) date) (Updated 01/10/22 unknown) @ 02:38 by Chanell Sahni MD) (unknown) (no (unknown) (unknown) Meds (units (unkno wn) date) unknown) (unknown) (no (unknown) (unknown) Reagan # (Auto) (units ( unknown) date) unknown) (unknown) (no (unknown) (unknown) Reagan # (Auto) (units ( unknown) date) 400 unknown) (unknown) (no (unknown) (unknown) Reagan % (Auto) (units ( unknown) date) unknown) (unknown) (no (unknown) (unknown) Reagan % (Auto) (units ( unknown) date) 3.2 unknown) (unknown) (no (unknown) (unknown) Neut # (Auto) (units ( unknown) date) unknown) (unknown) (no (unknown) (unknown) Neut # (Auto) (units ( unknown) date) 64845 H unknown) (unknown) (no (unknown) (unknown) Neut % (Auto) (units ( unknown) date) unknown) (unknown) (no (unknown) (unknown) Neut % (Auto) (units ( unknown) date) 78.2 H unknown) (unknown) (no (unknown) (unknown) Objective (units (unkn own) date) unknown) (unknown) (no (unknown) (unknown) Oxygen Delivery (units (unknown) date) Method Room Air unknown) (unknown) (no (unknown) (unknown) Oxygen Flow Rate (units (unknown) date) 0 unknown) (unknown) (no (unknown) (unknown) Patient History (units (unknown) date) unknown) (unknown) (no (unknown) (unknown) Patient: (units (unkno wn) date) Chelsea Lebron unknown) MR#: [id number] (unknown) (no (unknown) (unknown) Penicillins (units (un known) date) [PENICILLINS] unknown) Allergy Unknown Verified 11/15/21 14:12 (unknown) (no (unknown) (unknown) Plt Count (units (unkn own) date) unknown) (unknown) (no (unknown) (unknown) Plt Count 367 (units (unknown) date) unknown) (unknown) (no (unknown) (unknown) Potassium (units (unkn own) date) unknown) (unknown) (no (unknown) (unknown) Potassium 3.7 (units (unknown) date) unknown) (unknown) (no (unknown) (unknown) Provider: (units (unkn own) date) Radha House unknown) (unknown) (no (unknown) (unknown) Pulse Oximetry (units (unknown) date) 100 100 99 unknown) (unknown) (no (unknown) (unknown) Pulse Oximetry 96 (units (unknown) date) 98 97 unknown) (unknown) (no (unknown) (unknown) Pulse Oximetry 97 (units (unknown) date) 98 98 unknown) (unknown) (no (unknown) (unknown) Pulse Oximetry 99 (units (unknown) date) 99 unknown) (unknown) (no (unknown) (unknown) Pulse Oximetry 99 (units (unknown) date) 97 98 unknown) (unknown) (no (unknown) (unknown) Pulse Rate 106 H (units (unknown) date) 120 H 121 H unknown) (unknown) (no (unknown) (unknown) Pulse Rate 116 H (units (unknown) date) 116 H unknown) (unknown) (no (unknown) (unknown) Pulse Rate 117 H (units (unknown) date) 117 H unknown) (unknown) (no (unknown) (unknown) Pulse Rate 122 H (units (unknown) date) 123 H 135 H unknown) (unknown) (no (unknown) (unknown) Pulse Rate 124 H (units (unknown) date) 126 H 124 H unknown) (unknown) (no (unknown) (unknown) RBC (units (unkno wn) date) unknown) (unknown) (no (unknown) (unknown) RBC 4.72 (units (unkn own) date) unknown) (unknown) (no (unknown) (unknown) RDW (units (unkno wn) date) unknown) (unknown) (no (unknown) (unknown) RDW 12.5 (units (unkn own) date) unknown) (unknown) (no (unknown) (unknown) Respiratory Rate (units (unknown) date) unknown) (unknown) (no (unknown) (unknown) Respiratory Rate (units (unknown) date) 17 unknown) (unknown) (no (unknown) (unknown) Result Diagrams: (units (unknown) date) unknown) (unknown) (no (unknown) (unknown) SARS-CoV-2 (PCR) (units (unknown) date) unknown) (unknown) (no (unknown) (unknown) SARS-CoV-2 (PCR) (units (unknown) date) Negative unknown) (unknown) (no (unknown) (unknown) Safety + (units (unkno wn) date) Behavioral: unknown) (unknown) (no (unknown) (unknown) Signed By: (units (unk nown) date) unknown) (unknown) (no (unknown) (unknown) Smoking Status (units (unknown) date) Never smoker unknown) (unknown) (no (unknown) (unknown) Sodium (units (unkno wn) date) unknown) (unknown) (no (unknown) (unknown) Sodium 137 (units (u nknown) date) unknown) (unknown) (no (unknown) (unknown) Substance Use (units ( unknown) date) Type marijuana unknown) (unknown) (no (unknown) (unknown) Temperature (units (un known) date) unknown) (unknown) (no (unknown) (unknown) Temperature 98.1 (units (unknown) date) F unknown) (unknown) (no (unknown) (unknown) Threatened By a (units (unknown) date) Person unknown) (unknown) (no (unknown) (unknown) Time Patient (units (u nknown) date) Seen: 03:00 unknown) (unknown) (no (unknown) (unknown) Time Spent With (units (unknown) date) Patient unknown) (unknown) (no (unknown) (unknown) Tobacco + (units (unkn own) date) Substance use: unknown) (unknown) (no (unknown) (unknown) Total Bilirubin (units (unknown) date) unknown) (unknown) (no (unknown) (unknown) Total Bilirubin (units (unknown) date) 0.5 unknown) (unknown) (no (unknown) (unknown) Total Protein (units ( unknown) date) unknown) (unknown) (no (unknown) (unknown) Total Protein (units ( unknown) date) 8.1 unknown) (unknown) (no (unknown) (unknown) Vital Signs (units (un known) date) unknown) (unknown) (no (unknown) (unknown) WBC (units (unkno wn) date) unknown) (unknown) (no (unknown) (unknown) WBC 13.4 H (units (un known) date) unknown) (unknown) (no (unknown) (unknown) [Embedded Image (units (unknown) date) Not Available] unknown) (unknown) (no (unknown) (unknown) aerosol inhaler (units (unknown) date) gram unknown) (unknown) (no (unknown) (unknown) albuterol sulfate (units (unknown) date) 90 mcg/actuation 2 unknown) puff INHALATION Q4-6H PRN #18 06/05/19 Rx (unknown) (no (unknown) (unknown) alcohol intake (units (unknown) date) frequency unknown) holiday/special occasion (unknown) (no (unknown) (unknown) capsule,extended (units (unknown) date) release 24 hr unknown) (unknown) (no (unknown) (unknown) cyclobenzaprine (units (unknown) date) 10 mg tablet 10 mg unknown) PO TID PRN #12 tab 10/18/19 Rx (unknown) (no (unknown) (unknown) doxycycline (units (un known) date) [DOXYCYCLINE] unknown) Allergy Unknown Verified 11/15/21 14:12 (unknown) (no (unknown) (unknown) famotidine 40 mg (units (unknown) date) tablet 40 mg PO unknown) DAILY #7 tab 05/14/21 Rx (unknown) (no (unknown) (unknown) hydrocodone (units (un known) date) [HYDROCODONE] unknown) Allergy Unknown Verified 11/15/21 14:12 (unknown) (no (unknown) (unknown) lidocaine Allergy (units (unknown) date) Verified unknown) 11/15/21 14:12 (unknown) (no (unknown) (unknown) ondansetron 4 mg (units (unknown) date) disintegrating 4 unknown) mg PO 01/15/22 History (unknown) (no (unknown) (unknown) pantoprazole 40 (units (unknown) date) mg tablet,delayed unknown) 40 mg PO DAILY 01/15/22 01/15/22 History (unknown) (no (unknown) (unknown) release (units (unkno wn) date) unknown) (unknown) (no (unknown) (unknown) shellfish derived (units (unknown) date) Allergy unknown) Anaphylaxis Verified 11/15/21 14:12 (unknown) (no (unknown) (unknown) tablet (units (unkno wn) date) unknown) (unknown) (no (unknown) (unknown) today; this time (units (unknown) date) is exclusive of unknown) procedural time. (unknown) (no (unknown) (unknown) venlafaxine 150 (units (unknown) date) mg 150 mg PO DAILY unknown) 01/15/22 01/15/22 History Result panel 17 (unknown) (no (unknown) (unknown) (no value) (units (unk nown) date) unknown) (unknown) (no (unknown) (unknown) Radiologist's (units ( unknown) date) Impression: unknown) (unknown) (no (unknown) (unknown) (no value) (units (unk nown) date) unknown) (unknown) (no (unknown) (unknown) Date of Service: (units (unknown) date) 01/15/22 unknown) (unknown) (no (unknown) (unknown) (no value) (units (unk nown) date) unknown) (unknown) (no (unknown) (unknown) <Electronically (units (unknown) date) signed by Mario unknown) Buddy Ashraf> (unknown) (no (unknown) (unknown) 01/14/22 18:35 (units (unknown) date) unknown) (unknown) (no (unknown) (unknown) 01/15/22 0456 (units ( unknown) date) unknown) (unknown) (no (unknown) (unknown) [address] [place] [address] (units (unknown) date) unknown) (unknown) (no (unknown) (unknown) Admin: 01/14/22 (units (unknown) date) 18:54 Dose: 150 unknown) mls/hr (unknown) (no (unknown) (unknown) Allergies (units (unkn own) date) unknown) (unknown) (no (unknown) (unknown) ISAM[facility] Ram [id number] (unit s (unknown) date) unknown) (unknown) (no (unknown) (unknown) CT Scan Report (units (unknown) date) unknown) (unknown) (no (unknown) (unknown) Documented by: (units (unknown) date) [email or web address] unknown) (unknown) (no (unknown) (unknown) Documented by: (units (unknown) date) EDU.[email or web address] unknown) (unknown) (no (unknown) (unknown) Documented by: (units (unknown) date) NA unknown) (unknown) (no (unknown) (unknown) ED Orders (units (unkn own) date) unknown) (unknown) (no (unknown) (unknown) Emergency Report (units (unknown) date) unknown) (unknown) (no (unknown) (unknown) Home Medications (units (unknown) date) unknown) (unknown) (no (unknown) (unknown) Infusion: 01/14/22 (units (unknown) date) 22:02 Dose: 0 unknown) mls/hr (unknown) (no (unknown) (unknown) Infusion: 01/15/22 (units (unknown) date) 03:12 Dose: 100 unknown) mls/hr (unknown) (no (unknown) (unknown) [facility] (units (unknown) date) unknown) (unknown) (no (unknown) (unknown) [facility] (units (unknown) date) [address] unknown) [place] [address] (unknown) (no (unknown) (unknown) Lab Results (units (un known) date) unknown) (unknown) (no (unknown) (unknown) Last Admin: (units (un known) date) 01/14/22 18:53 unknown) Dose: 40 mg (unknown) (no (unknown) (unknown) Last Admin: (units (un known) date) 01/14/22 20:07 unknown) Dose: 0.5 mg (unknown) (no (unknown) (unknown) Last Admin: (units (un known) date) 01/14/22 20:07 unknown) Dose: 125 mg (unknown) (no (unknown) (unknown) Last Admin: (units (un known) date) 01/14/22 20:07 unknown) Dose: 4 mg (unknown) (no (unknown) (unknown) Last Admin: (units (un known) date) 01/14/22 21:18 unknown) Dose: 25 mg (unknown) (no (unknown) (unknown) Last Admin: (units (un known) date) 01/14/22 23:48 unknown) Dose: 0.5 mg (unknown) (no (unknown) (unknown) Last Admin: (units (un known) date) 01/14/22 23:48 unknown) Dose: 1,000 mls/hr (unknown) (no (unknown) (unknown) Last Admin: (units (un known) date) 01/15/22 03:12 unknown) Dose: 100 mls/hr (unknown) (no (unknown) (unknown) Last Admin: (units (un known) date) 01/15/22 03:12 unknown) Dose: 15 mg (unknown) (no (unknown) (unknown) Last Admin: (units (un known) date) 01/15/22 03:12 unknown) Dose: 4 mg (unknown) (no (unknown) (unknown) Last Admin: (units (un known) date) 01/15/22 04:09 unknown) Dose: 0.5 mg (unknown) (no (unknown) (unknown) Launch?Image (units (u nknown) date) unknown) (unknown) (no (unknown) (unknown) PRN Reason: (units (un known) date) Breakthrough pain unknown) only (8-10) (unknown) (no (unknown) (unknown) PRN Reason: (units (un known) date) Fever/Mild Pain unknown) (1-3) (unknown) (no (unknown) (unknown) PRN Reason: Nausea (units (unknown) date) And Vomiting unknown) (unknown) (no (unknown) (unknown) PRN Reason: Opiate (units (unknown) date) Reversal unknown) (unknown) (no (unknown) (unknown) PRN Reason: Pain, (units (unknown) date) Moderate (4-6) unknown) (unknown) (no (unknown) (unknown) Point of Care (units ( unknown) date) Testing unknown) (unknown) (no (unknown) (unknown) Previous Rx's (units ( unknown) date) unknown) (unknown) (no (unknown) (unknown) Signed (units (unkno wn) date) unknown) (unknown) (no (unknown) (unknown) Stop: 01/14/22 (units (unknown) date) 18:08 unknown) (unknown) (no (unknown) (unknown) Stop: 01/14/22 (units (unknown) date) 19:52 unknown) (unknown) (no (unknown) (unknown) Stop: 01/14/22 (units (unknown) date) 19:53 unknown) (unknown) (no (unknown) (unknown) Stop: 01/14/22 (units (unknown) date) 21:10 unknown) (unknown) (no (unknown) (unknown) Stop: 01/14/22 (units (unknown) date) 23:43 unknown) (unknown) (no (unknown) (unknown) Stop: 01/15/22 (units (unknown) date) 00:39 unknown) (unknown) (no (unknown) (unknown) Stop: 01/18/22 (units (unknown) date) 02:59 unknown) (unknown) (no (unknown) (unknown) Urine Dip (units (unkn own) date) unknown) (unknown) (no (unknown) (unknown) Vital Signs - 8 hr (units (unknown) date) unknown) (unknown) (no (unknown) (unknown) XRay Report (units (un known) date) unknown) (unknown) (no (unknown) (unknown) (no value) (units (unk nown) date) unknown) (unknown) (no (unknown) (unknown) 01/14/22 01/14/22 (units (unknown) date) 01/14/22 Range/Units unknown) (unknown) (no (unknown) (unknown) 18:35 18:35 18:35 (units (unknown) date) unknown) (unknown) (no (unknown) (unknown) 01/14/22 (units (unkno wn) date) unknown) (unknown) (no (unknown) (unknown) 01/15/22 (units (unkno wn) date) unknown) (unknown) (no (unknown) (unknown) Acute right lower (units (unknown) date) quadrant pain, unknown) Intractable abdominal pain (unknown) (no (unknown) (unknown) Medication (units (unk nown) date) Instructions unknown) Recorded (unknown) (no (unknown) (unknown) Medication (units (unk nown) date) Instructions unknown) Recorded Confirmed (unknown) (no (unknown) (unknown) for fluids, pain (units (unknown) date) control and unknown) abdominal exams (unknown) (no (unknown) (unknown) rales, or rhonchi. (units (unknown) date) unknown) (unknown) (no (unknown) (unknown) the (units (unkno wn) date) unknown) (unknown) (no (unknown) (unknown) to (units (unkno wn) date) unknown) (unknown) (no (unknown) (unknown) with (units (unkno wn) date) unknown) (unknown) (no (unknown) (unknown) 00:00 01/15/22 (units (unknown) date) unknown) (unknown) (no (unknown) (unknown) 00:30 (units (unkno wn) date) unknown) (unknown) (no (unknown) (unknown) [id number] (units (unkno wn) date) unknown) (unknown) (no (unknown) (unknown) 01/14/22 19:51 (units (unknown) date) unknown) (unknown) (no (unknown) (unknown) 01/14/22 21:10 (units (unknown) date) unknown) (unknown) (no (unknown) (unknown) 01/15/22 23:52 (units (unknown) date) unknown) (unknown) (no (unknown) (unknown) 1. Fluid distention (unit s (unknown) date) throughout the colon unknown) with air-fluid levels likely (unknown) (no (unknown) (unknown) 12 point review of (units (unknown) date) systems is negative unknown) except for those stated above (unknown) (no (unknown) (unknown) 14:03.? [facility], CT, CT unknown) ABDOMEN PELVIS W CON, 01/10/2022, 1:14. (unknown) (no (unknown) (unknown) 2. Associated mild (units (unknown) date) short segment unknown) dilatation of the distal ileum likely secondary (unknown) (no (unknown) (unknown) 21:00 01/14/22 (units (unknown) date) unknown) (unknown) (no (unknown) (unknown) 21:30 01/14/22 (units (unknown) date) unknown) (unknown) (no (unknown) (unknown) 22:00 (units (unkno wn) date) unknown) (unknown) (no (unknown) (unknown) 22:30 01/14/22 (units (unknown) date) unknown) (unknown) (no (unknown) (unknown) 23:00 01/14/22 (units (unknown) date) unknown) (unknown) (no (unknown) (unknown) 23:30 (units (unkno wn) date) unknown) (unknown) (no (unknown) (unknown) 26-year-old female (units (unknown) date) nonsmoker with unknown) history of lower GI bleed, lupus, colon (unknown) (no (unknown) (unknown) 3. 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 This (unknown) (no (unknown) (unknown) 01/03/2021, (units (unk nown) date) unknown) (unknown) (no (unknown) (unknown) ? (units (unkno wn) date) unknown) (unknown) (no (unknown) (unknown) ABDOMEN: (units (unkno wn) date) unknown) (unknown) (no (unknown) (unknown) ALT 18 (<35) (units (unknown) date) IU/L unknown) (unknown) (no (unknown) (unknown) AST 24 (14-36) (units (unknown) date) IU/L unknown) (unknown) (no (unknown) (unknown) Abdomen:? Bowel gas (unit s (unknown) date) pattern is normal.? unknown) No suspicious calcifications.? (unknown) (no (unknown) (unknown) Abdominal Nodes:? No (unit s (unknown) date) retroperitoneal or unknown) mesenteric adenopathy by size criteria.? (unknown) (no (unknown) (unknown) Abdominal x-ray: (units (unknown) date) unknown) (unknown) (no (unknown) (unknown) Accession Number: (units (unknown) date) [id number] ?? unknown) (unknown) (no (unknown) (unknown) Accession Number: (units (unknown) date) [id number] ?? unknown) (unknown) (no (unknown) (unknown) Acct:[id number] (units (unknown) date) unknown) (unknown) (no (unknown) (unknown) Acetaminophen (units ( unknown) date) (Acetaminophen 325 unknown) Mg Tablet) 650 mg PO Q6HR PRN (unknown) (no (unknown) (unknown) Admit Date/Time: (units (unknown) date) 01/15/22 00:58 unknown) (unknown) (no (unknown) (unknown) Admit Provider: (units (unknown) date) Radha House unknown) (unknown) (no (unknown) (unknown) Adrenal Glands:? No (unit s (unknown) date) adrenal nodules.? ? unknown) (unknown) (no (unknown) (unknown) After the (units (unkn own) date) administration of unknown) oral and IV contrast, axial sections were acquired (unknown) (no (unknown) (unknown) Age/Sex: 26 / F (units (unknown) date) unknown) (unknown) (no (unknown) (unknown) Age/Sex: 26 / F (units (unknown) date) unknown) (unknown) (no (unknown) (unknown) Albumin 4.6 (units ( unknown) date) (3.5-5.0) g/dL unknown) (unknown) (no (unknown) (unknown) Albumin/Globulin (units (unknown) date) Ratio 1.3 unknown) (1.0-2.8) (unknown) (no (unknown) (unknown) Alkaline (units (unkno wn) date) Phosphatase 127 H unknown) (38-126) U/L (unknown) (no (unknown) (unknown) Allergy/AdvReac (units (unknown) date) Type Severity unknown) Reaction Status Date / Time (unknown) (no (unknown) (unknown) Antibody Screen (units (unknown) date) Negative unknown) (unknown) (no (unknown) (unknown) Anxiety (units (unkno wn) date) unknown) (unknown) (no (unknown) (unknown) Approved by: Alex (unit s (unknown) date) Martell Patiño M.D. on unknown) 01/14/2022 at 22:28 ? (unknown) (no (unknown) (unknown) Approved by: Víctor (units (unknown) date) Richard Bender on unknown) 01/14/2022 at 19:30? (unknown) (no (unknown) (unknown) BACK: Nontender (units (unknown) date) without deformity or unknown) crepitance. No flank tenderness. (unknown) (no (unknown) (unknown) BUN 10 (7-17) (units (unknown) date) mg/dL unknown) (unknown) (no (unknown) (unknown) BUN/Creatinine (units (unknown) date) Ratio 16.1 unknown) (6-22) (unknown) (no (unknown) (unknown) Baso # (Auto) 0 (units (unknown) date) (0-100) /uL unknown) (unknown) (no (unknown) (unknown) Baso % (Auto) 0.3 (units (unknown) date) (0-2) % unknown) (unknown) (no (unknown) (unknown) Bedside Urine (units ( unknown) date) Bilirubin - unknown) Negative (unknown) (no (unknown) (unknown) Bedside Urine (units ( unknown) date) Glucose Negative unknown) (unknown) (no (unknown) (unknown) Bedside Urine (units ( unknown) date) Ketone - Negative unknown) (unknown) (no (unknown) (unknown) Bedside Urine (units ( unknown) date) Leukocytes - unknown) Negative (unknown) (no (unknown) (unknown) Bedside Urine (units ( unknown) date) Nitrite - unknown) Negative (unknown) (no (unknown) (unknown) Bedside Urine (units ( unknown) date) Occult Blood - unknown) Negative (unknown) (no (unknown) (unknown) Bedside Urine (units ( unknown) date) Protein - unknown) Negative (unknown) (no (unknown) (unknown) Bedside Urine (units ( unknown) date) Urobilinogen - unknown) Negative (unknown) (no (unknown) (unknown) Bedside Urine pH (units (unknown) date) 6.0 unknown) (unknown) (no (unknown) (unknown) Biliary ducts:? No (units (unknown) date) biliary ductal unknown) dilatation.? ? (unknown) (no (unknown) (unknown) Bladder:? (units (unkn own) date) Unremarkable.? ? unknown) (unknown) (no (unknown) (unknown) Blood Pressure (units (unknown) date) unknown) (unknown) (no (unknown) (unknown) Blood Pressure (units (unknown) date) unknown) (unknown) (no (unknown) (unknown) Blood Pressure (units (unknown) date) 129/84 01/14/22 unknown) 15:37 (unknown) (no (unknown) (unknown) Blood Pressure (units (unknown) date) 119/78 unknown) (unknown) (no (unknown) (unknown) Blood Type O (units (unknown) date) Positive unknown) (unknown) (no (unknown) (unknown) Bones:? No (units (unk nown) date) suspicious bony unknown) lesions.? (unknown) (no (unknown) (unknown) Bones:? Visualized (units (unknown) date) osseous structures unknown) demonstrate no suspicious focal lesions. (unknown) (no (unknown) (unknown) CARDIOVASCULAR: (units (unknown) date) Denies chest pain, unknown) palpitations, orthopnea, edema, (unknown) (no (unknown) (unknown) CARDIOVASCULAR: (units (unknown) date) Regular rate and unknown) rhythm without murmurs, gallops, or rubs. (unknown) (no (unknown) (unknown) COMPARISON:? None. (units (unknown) date) unknown) (unknown) (no (unknown) (unknown) COMPARISON:? [facility] (unit s (unknown) date) [facility], [place], unknown) CT ABDOMEN PELVIS WITH CONTRAST, (unknown) (no (unknown) (unknown) COVID19 -Nasal (units (unknown) date) RAPID/Pre-Proc Stat unknown) (unknown) (no (unknown) (unknown) CT abdomen pelvis w (unit s (unknown) date) con Stat unknown) (unknown) (no (unknown) (unknown) CT scan - (units (unkn own) date) abdomen/pelvis: unknown) (unknown) (no (unknown) (unknown) Calcium 9.4 (units ( unknown) date) (8.4-10.2) mg/dL unknown) (unknown) (no (unknown) (unknown) Carbon Dioxide 20 (unit s (unknown) date) L (22-32) mmol/L unknown) (unknown) (no (unknown) (unknown) Chest:? Lungs are (units (unknown) date) clear.? Heart size unknown) is normal.? No pleural effusions.? No (unknown) (no (unknown) (unknown) Chief Complaint: (units (unknown) date) Abdominal Pain unknown) (unknown) (no (unknown) (unknown) Chloride 106 (units (unknown) date) (98-107) mmol/L unknown) (unknown) (no (unknown) (unknown) Clinical (units (unkno wn) date) Impression: unknown) (unknown) (no (unknown) (unknown) Course (units (unkno wn) date) unknown) (unknown) (no (unknown) (unknown) Creatinine 0.62 (units (unknown) date) (0.52-1.04) mg/dL unknown) (unknown) (no (unknown) (unknown) : 1995 (units (unknown) date) Acct:[id number] unknown) (unknown) (no (unknown) (unknown) : 1995 (units (unknown) date) unknown) (unknown) (no (unknown) (unknown) Date of Service: (units (unknown) date) 01/14/22 unknown) (unknown) (no (unknown) (unknown) Departure (units (unkn own) date) unknown) (unknown) (no (unknown) (unknown) Dictated by: Alex (unit s (unknown) date) Martell Patiño M.D. on unknown) 01/14/2022 at 22:17 ? ? (unknown) (no (unknown) (unknown) Dictated by: Víctor (units (unknown) date) Bender, M.D. on unknown) 01/14/2022 at 19:29 ? ? (unknown) (no (unknown) (unknown) Diphenhydramine HCl (unit s (unknown) date) (Diphenhydramine 50 unknown) Mg/Ml Vial) 25 mg IV NOW ONE (unknown) (no (unknown) (unknown) Discharge Plan (units (unknown) date) unknown) (unknown) (no (unknown) (unknown) Discontinued (units (u nknown) date) Medications unknown) (unknown) (no (unknown) (unknown) Docusate Sodium (units (unknown) date) (Docusate 100 Mg unknown) Capsule) 100 mg PO BID JERMAIN (unknown) (no (unknown) (unknown) ENT: Nose without (units (unknown) date) bleeding, purulent unknown) drainage. Throat without erythema, (unknown) (no (unknown) (unknown) ER Physician: (units ( unknown) date) Mario Ashraf D.O. unknown) (unknown) (no (unknown) (unknown) EXTREMITIES: No (units (unknown) date) edema or joint unknown) tenderness. (unknown) (no (unknown) (unknown) EYES: Pupils equal (units (unknown) date) round and reactive. unknown) Extraocular motions intact. No scleral (unknown) (no (unknown) (unknown) Enoxaparin Sodium (units (unknown) date) (Enoxaparin 40 unknown) Mg/0.4 Ml Syringe) 40 mg SUBCUT DAILY JERMAIN (unknown) (no (unknown) (unknown) Eos # (Auto) 0 (units (unknown) date) (0-450) /uL unknown) (unknown) (no (unknown) (unknown) Eos % (Auto) 0.2 L (unit s (unknown) date) (2-4) % unknown) (unknown) (no (unknown) (unknown) Esterase (units (unkno wn) date) unknown) (unknown) (no (unknown) (unknown) Estimated GFR > (units (unknown) date) 60 (>60) mL/min unknown) (unknown) (no (unknown) (unknown) Exam (units (unkno wn) date) unknown) (unknown) (no (unknown) (unknown) Exam Narrative: (units (unknown) date) unknown) (unknown) (no (unknown) (unknown) Exercise-induced (units (unknown) date) asthma unknown) (unknown) (no (unknown) (unknown) FINDINGS:? (units (unk nown) date) unknown) (unknown) (no (unknown) (unknown) GASTROINTESTINAL: (units (unknown) date) See HPI. unknown) (unknown) (no (unknown) (unknown) GASTROINTESTINAL: (units (unknown) date) Abdomen soft, unknown) severely tender in the right lower quadrant, (unknown) (no (unknown) (unknown) GENERAL: Denies (units (unknown) date) chills, fatigue, unknown) malaise, fever, sweats. (unknown) (no (unknown) (unknown) GENERAL: [26] year (units (unknown) date) old patient appears unknown) stated age. Well-developed patient, in (unknown) (no (unknown) (unknown) : Denies dysuria, (unit s (unknown) date) frequency, unknown) incontinence, hematuria, urinary retention. (unknown) (no (unknown) (unknown) Gallbladder:? (units ( unknown) date) Within normal limits unknown) without calcified gallstones.? ? (unknown) (no (unknown) (unknown) General (units (unkno wn) date) unknown) (unknown) (no (unknown) (unknown) GenericComposite[Pl (unit s (unknown) date) t Count 367 unknown) (150-400) X10^3/uL ] (unknown) (no (unknown) (unknown) GenericComposite[RB (unit s (unknown) date) C 4.72 (4.0-5.2) unknown) X10^6/uL ] (unknown) (no (unknown) (unknown) GenericComposite[WB (unit s (unknown) date) C 13.4 H unknown) (4.5-11.0) X10^3/uL ] (unknown) (no (unknown) (unknown) Globulin 3.5 (units (unknown) date) (1.7-4.1) g/dL unknown) (unknown) (no (unknown) (unknown) Glucose 93 (units (u nknown) date) (70-100) mg/dL unknown) (unknown) (no (unknown) (unknown) HEAD: Atraumatic. (units (unknown) date) Normocephalic. unknown) (unknown) (no (unknown) (unknown) HEENT: Denies sinus (unit s (unknown) date) pain, ear pain, sore unknown) throat, difficulty swallowing, (unknown) (no (unknown) (unknown) HPI - Abdominal (units (unknown) date) Pain unknown) (unknown) (no (unknown) (unknown) HPI narrative: (units (unknown) date) unknown) (unknown) (no (unknown) (unknown) Hct 43.1 (units (unkn own) date) (36-46) % unknown) (unknown) (no (unknown) (unknown) Heart:? Heart is (units (unknown) date) normal in size. unknown) (unknown) (no (unknown) (unknown) Hgb 15.2 (units (unkn own) date) (12.0-16.0) g/dL unknown) (unknown) (no (unknown) (unknown) History of Present (units (unknown) date) Illness unknown) (unknown) (no (unknown) (unknown) Hydromorphone HCl (units (unknown) date) (Hydromorphone 0.5 unknown) Mg Inj) 0.5 mg IV NOW ONE (unknown) (no (unknown) (unknown) Hydromorphone HCl (units (unknown) date) (Hydromorphone 0.5 unknown) Mg Inj) 0.5 mg IV Q4H PRN (unknown) (no (unknown) (unknown) IMPRESSION:? (units (u nknown) date) unknown) (unknown) (no (unknown) (unknown) IMPRESSION:? No (units (unknown) date) evidence of bowel unknown) obstruction or gross free air. (unknown) (no (unknown) (unknown) INDICATIONS:? (units ( unknown) date) Abdominal pain unknown) (unknown) (no (unknown) (unknown) INDICATIONS:? (units ( unknown) date) severe RLQ pain unknown) (unknown) (no (unknown) (unknown) Image quality:? (units (unknown) date) Excellent.? unknown) (unknown) (no (unknown) (unknown) Imaging Data (units (u nknown) date) unknown) (unknown) (no (unknown) (unknown) Initial Vital Signs (unit s (unknown) date) unknown) (unknown) (no (unknown) (unknown) Initial Vital (units ( unknown) date) Signs: unknown) (unknown) (no (unknown) (unknown) Ketorolac (units (unkn own) date) Tromethamine unknown) (Ketorolac 30 Mg/Ml Vial) 15 mg IV Q6H PRN (unknown) (no (unknown) (unknown) Kidneys and (units (un known) date) Ureters:? No unknown) hydronephrosis.? ? (unknown) (no (unknown) (unknown) Lab Data (units (unkno wn) date) unknown) (unknown) (no (unknown) (unknown) Labs: (units (unkno wn) date) unknown) (unknown) (no (unknown) (unknown) Lipase 42 (units (un known) date) (23-300) U/L unknown) (unknown) (no (unknown) (unknown) Liver:? There is a (units (unknown) date) hypervascular lesion unknown) redemonstrated in the right hepatic lobe (unknown) (no (unknown) (unknown) Loc: ED (units (unkno wn) date) unknown) (unknown) (no (unknown) (unknown) Lung bases:? (units (u nknown) date) Unremarkable.? ? unknown) (unknown) (no (unknown) (unknown) Lupus (units (unkno wn) date) unknown) (unknown) (no (unknown) (unknown) Lymph # (Auto) (units (unknown) date) 2400 ([id number]) unknown) /uL (unknown) (no (unknown) (unknown) Lymph % (Auto) (units (unknown) date) 18.1 L (25-40) % unknown) (unknown) (no (unknown) (unknown) MCH 32.1 (units (unkn own) date) (26-34) PG unknown) (unknown) (no (unknown) (unknown) MCHC 35.1 (units (unk nown) date) (30-36) % unknown) (unknown) (no (unknown) (unknown) MCV 91.4 (units (unkn own) date) (80-100) fL unknown) (unknown) (no (unknown) (unknown) MDM - Abdominal (units (unknown) date) Pain unknown) (unknown) (no (unknown) (unknown) MDM Narrative (units ( unknown) date) unknown) (unknown) (no (unknown) (unknown) MR#: [id number] (units (unknown) date) unknown) (unknown) (no (unknown) (unknown) MUSCULOSKELETAL: (units (unknown) date) denies weakness, unknown) joint pain, or bony pain (unknown) (no (unknown) (unknown) Medical History (units (unknown) date) (Updated 01/15/22 @ unknown) 04:56 by Mario Ashraf DO) (unknown) (no (unknown) (unknown) Medical decision (units (unknown) date) making narrative: unknown) (unknown) (no (unknown) (unknown) Methylprednisolone (units (unknown) date) (Methylprednisolone unknown) 125 Mg/2 Ml Vial) 125 mg IV NOW ONE (unknown) (no (unknown) (unknown) Miscellaneous: No (units (unknown) date) inguinal hernias are unknown) seen. ? ? (unknown) (no (unknown) (unknown) Mode of arrival: (units (unknown) date) Family Vehicle unknown) (unknown) (no (unknown) (unknown) Reagan # (Auto) 400 (units (unknown) date) (0-900) /uL unknown) (unknown) (no (unknown) (unknown) Reagan % (Auto) 3.2 (units (unknown) date) (3-14) % unknown) (unknown) (no (unknown) (unknown) NECK: Trachea (units ( unknown) date) midline. Non tender unknown) (unknown) (no (unknown) (unknown) NEURO: AOx3. (units (u nknown) date) unknown) (unknown) (no (unknown) (unknown) NEUROLOGIC: Denies (units (unknown) date) weakness, headache, unknown) numbness, change in speech, confusion, (unknown) (no (unknown) (unknown) Naloxone HCl (units (u nknown) date) (Naloxone 0.4 Mg/Ml unknown) Vial) 0.2 mg IV Q2MIN PRN (unknown) (no (unknown) (unknown) Narrative (units (unkn own) date) unknown) (unknown) (no (unknown) (unknown) Narrative: (units (unk nown) date) unknown) (unknown) (no (unknown) (unknown) Neut # (Auto) (units ( unknown) date) 80302 H unknown) (7812-6242) /uL (unknown) (no (unknown) (unknown) Neut % (Auto) 78.2 (unit s (unknown) date) H (50-75) % unknown) (unknown) (no (unknown) (unknown) No acute (units (unkno wn) date) cardiopulmonary unknown) pathology.? (unknown) (no (unknown) (unknown) Ondansetron HCl (units (unknown) date) (Ondansetron 4 Mg/2 unknown) Ml Inj) 4 mg IV NOW ONE (unknown) (no (unknown) (unknown) Ondansetron HCl (units (unknown) date) (Ondansetron 4 Mg/2 unknown) Ml Inj) 4 mg IV Q6HR PRN (unknown) (no (unknown) (unknown) Ordered: (units (unkno wn) date) unknown) (unknown) (no (unknown) (unknown) Ordering Provider: (units (unknown) date) Mario Ashraf D.O. unknown) (unknown) (no (unknown) (unknown) Orders (units (unkno wn) date) unknown) (unknown) (no (unknown) (unknown) PELVIS: (units (unkno wn) date) unknown) (unknown) (no (unknown) (unknown) PROCEDURE:? CT (units (unknown) date) ABDOMEN PELVIS W CON unknown) (unknown) (no (unknown) (unknown) PROCEDURE:? XR (units (unknown) date) ACUTE ABDOMEN SERIES unknown) (unknown) (no (unknown) (unknown) PSYCHIATRIC: No (units (unknown) date) concerning unknown) psychosocial issues. (unknown) (no (unknown) (unknown) Pancreas:? (units (unk nown) date) Unremarkable.? ? unknown) (unknown) (no (unknown) (unknown) Pantoprazole Sodium (unit s (unknown) date) (Pantoprazole 40 Mg unknown) Vial) 40 mg IV NOW ONE (unknown) (no (unknown) (unknown) Patient (units (unkno wn) date) Disposition: unknown) Admitted as Observation (unknown) (no (unknown) (unknown) Patient History (units (unknown) date) unknown) (unknown) (no (unknown) (unknown) Patient continues (units (unknown) date) to have significant unknown) pain, ultrasound has no significant (unknown) (no (unknown) (unknown) Patient still (units ( unknown) date) having pain after unknown) multiple doses of Dilaudid becomes tachycardic (unknown) (no (unknown) (unknown) Patient with repeat (unit s (unknown) date) visit, worsening unknown) symptoms, intractable pain requiring (unknown) (no (unknown) (unknown) Patient: (units (unkno wn) date) Cheslea Lebron unknown) MR#: [id number] (unknown) (no (unknown) (unknown) Patient: (units (unkno wn) date) Chelsea Lebron unknown) (unknown) (no (unknown) (unknown) Pelvic Nodes: No (units (unknown) date) enlarged lymph unknown) nodes.? (unknown) (no (unknown) (unknown) Pelvic Organs:? (units (unknown) date) Unremarkable.? ? unknown) (unknown) (no (unknown) (unknown) Penicillins (units (un known) date) [PENICILLINS] unknown) Allergy Unknown Verified 11/15/21 14:12 (unknown) (no (unknown) (unknown) Peritoneum:? No (units (unknown) date) abnormal unknown) intraperitoneal fluid.? No free air.? (unknown) (no (unknown) (unknown) Point of care (units ( unknown) date) testing: unknown) (unknown) (no (unknown) (unknown) Potassium 3.7 (units (unknown) date) (3.4-5.1) mmol/L unknown) (unknown) (no (unknown) (unknown) Test (units (unknown) date) Results Negative unknown) (unknown) (no (unknown) (unknown) Procedure: CT (units ( unknown) date) abdomen pelvis w con unknown) (unknown) (no (unknown) (unknown) Procedure: XR acute (unit s (unknown) date) abdomen series unknown) (unknown) (no (unknown) (unknown) Pulse Oximetry 100 (unit s (unknown) date) 01/14/22 15:37 unknown) (unknown) (no (unknown) (unknown) Pulse Oximetry 98 (units (unknown) date) 97 unknown) (unknown) (no (unknown) (unknown) Pulse Oximetry 99 (units (unknown) date) 100 100 unknown) (unknown) (no (unknown) (unknown) Pulse Oximetry 99 (units (unknown) date) 99 97 unknown) (unknown) (no (unknown) (unknown) Pulse Rate 100 H (units (unknown) date) 01/14/22 15:37 unknown) (unknown) (no (unknown) (unknown) Pulse Rate 117 H (units (unknown) date) 106 H 120 H unknown) (unknown) (no (unknown) (unknown) Pulse Rate 121 H (units (unknown) date) 122 H 123 H unknown) (unknown) (no (unknown) (unknown) Pulse Rate 135 H (units (unknown) date) 124 H unknown) (unknown) (no (unknown) (unknown) RDW 12.5 (units (unkn own) date) (11.6-14.8) % unknown) (unknown) (no (unknown) (unknown) RESPIRATORY: Clear (units (unknown) date) to auscultation. unknown) Breath sounds equal bilaterally. No wheezes, (unknown) (no (unknown) (unknown) RESPIRATORY: Denies (unit s (unknown) date) dyspnea, cough, unknown) wheezing, hemoptysis, sputum. (unknown) (no (unknown) (unknown) Reevaluation #1: (units (unknown) date) unknown) (unknown) (no (unknown) (unknown) Reevaluation #2: (units (unknown) date) unknown) (unknown) (no (unknown) (unknown) Reevaluation(s) (units (unknown) date) unknown) (unknown) (no (unknown) (unknown) Related Data (units (u nknown) date) unknown) (unknown) (no (unknown) (unknown) Respiratory Rate (units (unknown) date) 16 01/14/22 15:37 unknown) (unknown) (no (unknown) (unknown) Result diagrams: (units (unknown) date) unknown) (unknown) (no (unknown) (unknown) Review of Systems (units (unknown) date) unknown) (unknown) (no (unknown) (unknown) SKIN: Denies rash, (units (unknown) date) skin lesions, or unknown) other (unknown) (no (unknown) (unknown) SKIN: No rash or (units (unknown) date) erythema of visible unknown) areas (unknown) (no (unknown) (unknown) Signed By: (units (unk nown) date) unknown) (unknown) (no (unknown) (unknown) Smoking Status: (units (unknown) date) Never smoker unknown) (unknown) (no (unknown) (unknown) Smoking Status: (units (unknown) date) Never smoker unknown) (unknown) (no (unknown) (unknown) Social History (units (unknown) date) (Reviewed 01/15/22 @ unknown) 04:53 by Mario Ashraf DO) (unknown) (no (unknown) (unknown) Sodium 137 (units (u nknown) date) (137-145) mmol/L unknown) (unknown) (no (unknown) (unknown) Sodium Chloride (units (unknown) date) (Normal Saline 0.9%) unknown) 1,000 mls @ 1,000 mls/hr IV BOLUS ONE (unknown) (no (unknown) (unknown) Sodium Chloride (units (unknown) date) (Normal Saline 0.9%) unknown) 1,000 mls @ 100 mls/hr IV CONT JERMAIN (unknown) (no (unknown) (unknown) Spleen:? Normal in (units (unknown) date) size.? ? unknown) (unknown) (no (unknown) (unknown) Stated Complaint: (units (unknown) date) THROWING UP BLOOD unknown) LOWER ABD (unknown) (no (unknown) (unknown) Stomach and Bowel:? (units (unknown) date) Stomach and small unknown) bowel loops are normal in caliber and wall (unknown) (no (unknown) (unknown) Substance Use Type: (unit s (unknown) date) marijuana unknown) (unknown) (no (unknown) (unknown) Surgical changes (units (unknown) date) and devices:? unknown) Surgical clips are seen in right pelvic region (unknown) (no (unknown) (unknown) TECHNIQUE:? (units (un known) date) unknown) (unknown) (no (unknown) (unknown) TECHNIQUE:? One (units (unknown) date) view chest and two unknown) views of the abdomen were acquired.? (unknown) (no (unknown) (unknown) Temperature 97.6 F (unit s (unknown) date) 01/14/22 15:37 unknown) (unknown) (no (unknown) (unknown) Time Seen by (units (u nknown) date) Provider: 05/20/22 unknown) 18:06 (unknown) (no (unknown) (unknown) Total Bilirubin (units (unknown) date) 0.5 (0.2-1.3) unknown) mg/dL (unknown) (no (unknown) (unknown) Total Protein 8.1 (unit s (unknown) date) (6.3-8.2) g/dL unknown) (unknown) (no (unknown) (unknown) US pelvic complete (units (unknown) date) Stat unknown) (unknown) (no (unknown) (unknown) Urine Specific (units (unknown) date) Moore 1.020 unknown) (unknown) (no (unknown) (unknown) Ventral Wall: ? No (units (unknown) date) hernia.? unknown) (unknown) (no (unknown) (unknown) Vessels:? Aorta and (unit s (unknown) date) inferior vena cava unknown) are normal in size.? (unknown) (no (unknown) (unknown) Visualized solid (units (unknown) date) unknown) (unknown) (no (unknown) (unknown) Vital Signs (units (un known) date) unknown) (unknown) (no (unknown) (unknown) Vital signs: (units (u nknown) date) unknown) (unknown) (no (unknown) (unknown) [Embedded Image Not (unit s (unknown) date) Available] unknown) (unknown) (no (unknown) (unknown) abdomen (units (unkno wn) date) unknown) (unknown) (no (unknown) (unknown) adjustment (units (unk nown) date) unknown) (unknown) (no (unknown) (unknown) aerosol inhaler (units (unknown) date) gram unknown) (unknown) (no (unknown) (unknown) albuterol sulfate (units (unknown) date) 90 mcg/actuation 2 unknown) puff INHALATION Q4-6H PRN #18 06/05/19 (unknown) (no (unknown) (unknown) alcohol intake (units (unknown) date) frequency: unknown) holidays/special occasions only (unknown) (no (unknown) (unknown) appears (units (unkno wn) date) unknown) (unknown) (no (unknown) (unknown) bleeding or (units (un known) date) discharge unknown) (unknown) (no (unknown) (unknown) bowel obstruction.? (unit s (unknown) date) unknown) (unknown) (no (unknown) (unknown) bowel sounds (units (u nknown) date) present in all 4 unknown) quadrants nondistended. (unknown) (no (unknown) (unknown) capsule,extended (units (unknown) date) release 24 hr unknown) (unknown) (no (unknown) (unknown) changes along the (units (unknown) date) cecum likely related unknown) to prior appendectomy.? (unknown) (no (unknown) (unknown) clinical (units (unkno wn) date) correlation. unknown) (unknown) (no (unknown) (unknown) colonic (units (unkno wn) date) distention.? unknown) Remainder of the small bowel is nondistended.? No definite (unknown) (no (unknown) (unknown) cyclobenzaprine 10 (units (unknown) date) mg tablet 10 mg PO unknown) TID PRN #12 tab 10/18/19 (unknown) (no (unknown) (unknown) descending colon (units (unknown) date) unknown) (unknown) (no (unknown) (unknown) differences (units (un known) date) unknown) (unknown) (no (unknown) (unknown) dizziness. (units (unk nown) date) unknown) (unknown) (no (unknown) (unknown) doxycycline (units (un known) date) [DOXYCYCLINE] unknown) Allergy Unknown Verified 11/15/21 14:12 (unknown) (no (unknown) (unknown) dysuria, frequency (units (unknown) date) or urgency. She unknown) denies any solid bowel movements in the past (unknown) (no (unknown) (unknown) famotidine 40 mg (units (unknown) date) tablet 40 mg PO unknown) DAILY #7 tab 05/14/21 (unknown) (no (unknown) (unknown) few days but has (units (unknown) date) been passing loose unknown) stool. She denies any fever or chills. She (unknown) (no (unknown) (unknown) findings, I did (units (unknown) date) discuss with the unknown) patient the likely need of a repeat CT scan (unknown) (no (unknown) (unknown) fluid (units (unkno wn) date) unknown) (unknown) (no (unknown) (unknown) from the (units (unkno wn) date) unknown) (unknown) (no (unknown) (unknown) gastroenteritis or (units (unknown) date) ileus.? A distal unknown) colonic obstruction in the sigmoid colon is (unknown) (no (unknown) (unknown) gastroenteritis (units (unknown) date) with unknown) (unknown) (no (unknown) (unknown) given worsened (units (unknown) date) symptoms unknown) (unknown) (no (unknown) (unknown) gradual (units (unkno wn) date) unknown) (unknown) (no (unknown) (unknown) hydrocodone (units (un known) date) [HYDROCODONE] unknown) Allergy Unknown Verified 11/15/21 14:12 (unknown) (no (unknown) (unknown) icterus. No (units (un known) date) injection or unknown) drainage. (unknown) (no (unknown) (unknown) in the phase of (units (unknown) date) enhancement.? 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 (unknown) (no (unknown) (unknown) increased in size (units (unknown) date) compared to the unknown) prior studies but may be due to differences in (unknown) (no (unknown) (unknown) indistinct (units (unk nown) date) margins.? This unknown) measures up to 2.5 x 1.7 cm in transverse dimension (unknown) (no (unknown) (unknown) is worse with (units ( unknown) date) motion and improves unknown) with rest. She denies any radiation of the (unknown) (no (unknown) (unknown) less (units (unkno wn) date) unknown) (unknown) (no (unknown) (unknown) level.? There is (units (unknown) date) fluid distention unknown) within the ascending, transverse, and (unknown) (no (unknown) (unknown) lidocaine Allergy (units (unknown) date) Verified 11/15/21 unknown) 14:12 (unknown) (no (unknown) (unknown) likely given the (units (unknown) date) gradual transition. unknown) (unknown) (no (unknown) (unknown) likely ileus versus (units (unknown) date) possible early unknown) obstruction, she will require hospitalization (unknown) (no (unknown) (unknown) likely mild (units (un known) date) colitis.? No unknown) definite evidence of obstruction.? There are (unknown) (no (unknown) (unknown) lung bases to the (units (unknown) date) pubic symphysis.? unknown) Coronal and sagittal reformats were (unknown) (no (unknown) (unknown) menstrual cycle (units (unknown) date) recently and states unknown) it was normal. She denies any vaginal (unknown) (no (unknown) (unknown) moderate distress, (units (unknown) date) obviously unknown) significantly uncomfortable, rubbing her lower (unknown) (no (unknown) (unknown) multiple doses of (units (unknown) date) pain medications. unknown) Imaging shows no surgical finding but (unknown) (no (unknown) (unknown) normal but then it (units (unknown) date) became blood unknown) streaked in she had 1 episode of emesis. She (unknown) (no (unknown) (unknown) of mA and/or kV (units (unknown) date) according to patient unknown) size. (unknown) (no (unknown) (unknown) ondansetron 4 mg (units (unknown) date) disintegrating 4 mg unknown) PO 01/15/22 (unknown) (no (unknown) (unknown) organ contours (units (unknown) date) appear normal.? unknown) (unknown) (no (unknown) (unknown) pain. She has had (units (unknown) date) nausea and vomiting unknown) and states that initially her emesis was (unknown) (no (unknown) (unknown) pantoprazole 40 mg (units (unknown) date) tablet,delayed 40 mg unknown) PO DAILY 01/15/22 01/15/22 (unknown) (no (unknown) (unknown) performed.? For (units (unknown) date) unknown) (unknown) (no (unknown) (unknown) phase of (units (unkno wn) date) enhancement. unknown) (unknown) (no (unknown) (unknown) pneumoperitoneum.? (units (unknown) date) unknown) (unknown) (no (unknown) (unknown) polyps, and (units (un known) date) abdominal pain unknown) returns for the second time this week for severe (unknown) (no (unknown) (unknown) postsurgical (units (u nknown) date) unknown) (unknown) (no (unknown) (unknown) radiation dose (units (unknown) date) reduction, the unknown) following was used:? automated exposure control, (unknown) (no (unknown) (unknown) release (units (unkno wn) date) unknown) (unknown) (no (unknown) (unknown) representing a (units (unknown) date) unknown) (unknown) (no (unknown) (unknown) right lower (units (un known) date) quadrant pain. She unknown) was seen and evaluated earlier in the week with (unknown) (no (unknown) (unknown) seizures, (units (unkn own) date) incoordination. unknown) (unknown) (no (unknown) (unknown) she has been at (units (unknown) date) home and complaint unknown) of worsening right lower quadrant pain that (unknown) (no (unknown) (unknown) shellfish derived (units (unknown) date) Allergy Anaphylaxis unknown) Verified 11/15/21 14:12 (unknown) (no (unknown) (unknown) sigmoid colon (units ( unknown) date) unknown) (unknown) (no (unknown) (unknown) slightly increased (units (unknown) date) in size compared to unknown) the prior studies which may be due to (unknown) (no (unknown) (unknown) small (units (unkno wn) date) unknown) (unknown) (no (unknown) (unknown) states she feels (units (unknown) date) worse today than she unknown) did the other day. She just had her (unknown) (no (unknown) (unknown) suggest (units (unkno wn) date) unknown) (unknown) (no (unknown) (unknown) tablet (units (unkno wn) date) unknown) (unknown) (no (unknown) (unknown) takes no blood (units (unknown) date) thinners. She is unknown) not dizzy nor weak or lightheaded. She denies (unknown) (no (unknown) (unknown) thickness.? There (units (unknown) date) is mild segmental unknown) distention of the distal ileum with an air- (unknown) (no (unknown) (unknown) tonsillar (units (unkn own) date) hypertrophy or unknown) exudate. Airway patent. (unknown) (no (unknown) (unknown) transition in the (units (unknown) date) distal sigmoid unknown) colon.? Findings likely reflect a (unknown) (no (unknown) (unknown) venlafaxine 150 mg (units (unknown) date) 150 mg PO DAILY unknown) 01/15/22 01/15/22 (unknown) (no (unknown) (unknown) very reassuring (units (unknown) date) labs and even a CT unknown) scan with unremarkable findings. Since then (unknown) (no (unknown) (unknown) which is (units (unkno wn) date) unknown) (unknown) (no (unknown) (unknown) with air-fluid (units (unknown) date) levels.? Mild fluid unknown) distention also demonstrated within the (unknown) (no (unknown) (unknown) with ambulation (units (unknown) date) unknown) (unknown) (no (unknown) (unknown) with minimal (units (u nknown) date) colonic wall unknown) thickening and pericolonic fat stranding.? There is a Result panel 18 (unknown) (no date) (unknown) (unknown) 0 /uL (unkn own) (unknown) (no date) (unknown) (unknown) 0 /uL (unkn own) (unknown) (no date) (unknown) (unknown) 0 /uL (unkn own) (unknown) (no date) (unknown) (unknown) 0.0 % (unkn own) (unknown) (no date) (unknown) (unknown) 0.2 % (unkn own) (unknown) (no date) (unknown) (unknown) 0.5 % (unkn own) (unknown) (no date) (unknown) (unknown) 12.5 % (unkn own) (unknown) (no date) (unknown) (unknown) 12.6 % (unkn own) (unknown) (no date) (unknown) (unknown) 14.4 g/dL (unkn own) (unknown) (no date) (unknown) (unknown) 316 X10 3/uL (unkn own) (unknown) (no date) (unknown) (unknown) 32.6 PG (unkn own) (unknown) (no date) (unknown) (unknown) 35.3 % (unkn own) (unknown) (no date) (unknown) (unknown) 4.42 X10 6/uL (unkn own) (unknown) (no date) (unknown) (unknown) 40.7 % (unkn own) (unknown) (no date) (unknown) (unknown) 6600 /uL (unkn own) (unknown) (no date) (unknown) (unknown) 7.6 X10 3/uL (unkn own) (unknown) (no date) (unknown) (unknown) 86.8 % (unkn own) (unknown) (no date) (unknown) (unknown) 900 /uL (unkn own) (unknown) (no date) (unknown) (unknown) 92.2 fL (unkn own) Result panel 19 (unknown) (no date) (unknown) (unknown) > 60 mL/min (unkn own) (unknown) (no date) (unknown) (unknown) 0.62 mg/dL (unkn own) (unknown) (no date) (unknown) (unknown) 106 mmol/L (unkn own) (unknown) (no date) (unknown) (unknown) 138 mmol/L (unkn own) (unknown) (no date) (unknown) (unknown) 14.5 (units unknown) (unknown) (unknown) (no date) (unknown) (unknown) 144 mg/dL (unkn own) (unknown) (no date) (unknown) (unknown) 22 mmol/L (unkn own) (unknown) (no date) (unknown) (unknown) 4.1 mmol/L (unkn own) (unknown) (no date) (unknown) (unknown) 9 mg/dL (unkn own) (unknown) (no date) (unknown) (unknown) 9.1 mg/dL (unkn own) Result panel 20 (unknown) (no (unknown) (unknown) (no value) (units (unk nown) date) unknown) (unknown) (no (unknown) (unknown) (no value) (units (unk nown) date) unknown) (unknown) (no (unknown) (unknown) Date of Service: (units (unknown) date) 01/15/22 unknown) (unknown) (no (unknown) (unknown) (no value) (units (unk nown) date) unknown) (unknown) (no (unknown) (unknown) - (units (unkno wn) date) unknown) (unknown) (no (unknown) (unknown) 01/15/22 05:41 (units (unknown) date) unknown) (unknown) (no (unknown) (unknown) Allergies (units (unkn own) date) unknown) (unknown) (no (unknown) (unknown) History + (units (unkn own) date) Physical Report unknown) (unknown) (no (unknown) (unknown) Home Medications (units (unknown) date) unknown) (unknown) (no (unknown) (unknown) [facility] (units (unknown) date) [address] unknown) [place] [address] (unknown) (no (unknown) (unknown) Laboratory (units (unk nown) date) Results - last 24 unknown) hr (unknown) (no (unknown) (unknown) (no value) (units (unk nown) date) unknown) (unknown) (no (unknown) (unknown) 01/14/22 01/14/22 (units (unknown) date) 01/14/22 unknown) (unknown) (no (unknown) (unknown) 01/15/22 (units (unkno wn) date) unknown) (unknown) (no (unknown) (unknown) 18:35 18:35 18:35 (units (unknown) date) unknown) (unknown) (no (unknown) (unknown) 23:52 (units (unkno wn) date) unknown) (unknown) (no (unknown) (unknown) 01/14/22 (units (unkno wn) date) unknown) (unknown) (no (unknown) (unknown) 01/15/22 (units (unkno wn) date) unknown) (unknown) (no (unknown) (unknown) Medication (units (unk nown) date) Instructions unknown) Recorded Confirmed Type (unknown) (no (unknown) (unknown) (past 8 hours): (units (unknown) date) unknown) (unknown) (no (unknown) (unknown) 00:00 (units (unkno wn) date) unknown) (unknown) (no (unknown) (unknown) 00:30 01/15/22 (units (unknown) date) unknown) (unknown) (no (unknown) (unknown) 01:15 01/15/22 (units (unknown) date) unknown) (unknown) (no (unknown) (unknown) 01:16 (units (unkno wn) date) unknown) (unknown) (no (unknown) (unknown) 01:30 01/15/22 (units (unknown) date) unknown) (unknown) (no (unknown) (unknown) 01:40 01/15/22 (units (unknown) date) unknown) (unknown) (no (unknown) (unknown) 02:54 (units (unkno wn) date) unknown) (unknown) (no (unknown) (unknown) [id number] (units (unkno wn) date) unknown) (unknown) (no (unknown) (unknown) 2020. She denies (units (unknown) date) fevers sweats, unknown) denies shortness of breath, chest pain, dysuria (unknown) (no (unknown) (unknown) 20:30 01/14/22 (units (unknown) date) unknown) (unknown) (no (unknown) (unknown) 20:32 01/14/22 (units (unknown) date) unknown) (unknown) (no (unknown) (unknown) 21:00 (units (unkno wn) date) unknown) (unknown) (no (unknown) (unknown) 21:30 01/14/22 (units (unknown) date) unknown) (unknown) (no (unknown) (unknown) 22:00 01/14/22 (units (unknown) date) unknown) (unknown) (no (unknown) (unknown) 22:30 (units (unkno wn) date) unknown) (unknown) (no (unknown) (unknown) 23:00 01/14/22 (units (unknown) date) unknown) (unknown) (no (unknown) (unknown) 23:30 01/15/22 (units (unknown) date) unknown) (unknown) (no (unknown) (unknown) ALT (units (unkno wn) date) unknown) (unknown) (no (unknown) (unknown) ALT 18 (units (unkno wn) date) unknown) (unknown) (no (unknown) (unknown) AST (units (unkno wn) date) unknown) (unknown) (no (unknown) (unknown) AST 24 (units (unkno wn) date) unknown) (unknown) (no (unknown) (unknown) Age/Sex: 26 / F (units (unknown) date) unknown) (unknown) (no (unknown) (unknown) Albumin (units (unkno wn) date) unknown) (unknown) (no (unknown) (unknown) Albumin 4.6 (units ( unknown) date) unknown) (unknown) (no (unknown) (unknown) Albumin/Globulin (units (unknown) date) Ratio unknown) (unknown) (no (unknown) (unknown) Albumin/Globulin (units (unknown) date) Ratio 1.3 unknown) (unknown) (no (unknown) (unknown) Alkaline (units (unkno wn) date) Phosphatase unknown) (unknown) (no (unknown) (unknown) Alkaline (units (unkno wn) date) Phosphatase 127 unknown) H (unknown) (no (unknown) (unknown) Allergy/AdvReac (units (unknown) date) Type Severity unknown) Reaction Status Date / Time (unknown) (no (unknown) (unknown) Antibody Screen (units (unknown) date) Negative unknown) (unknown) (no (unknown) (unknown) Antibody Screen (units (unknown) date) unknown) (unknown) (no (unknown) (unknown) Anxiety (units (unkno wn) date) unknown) (unknown) (no (unknown) (unknown) Assessment + Plan (units (unknown) date) unknown) (unknown) (no (unknown) (unknown) BUN (units (unkno wn) date) unknown) (unknown) (no (unknown) (unknown) BUN 10 (units (unkno wn) date) unknown) (unknown) (no (unknown) (unknown) BUN/Creatinine (units (unknown) date) Ratio unknown) (unknown) (no (unknown) (unknown) BUN/Creatinine (units (unknown) date) Ratio 16.1 unknown) (unknown) (no (unknown) (unknown) Baso # (Auto) (units ( unknown) date) unknown) (unknown) (no (unknown) (unknown) Baso # (Auto) 0 (units (unknown) date) unknown) (unknown) (no (unknown) (unknown) Baso % (Auto) (units ( unknown) date) unknown) (unknown) (no (unknown) (unknown) Baso % (Auto) (units ( unknown) date) 0.3 unknown) (unknown) (no (unknown) (unknown) Been Physically (units (unknown) date) Hurt or No unknown) (unknown) (no (unknown) (unknown) Blood Pressure (units (unknown) date) unknown) (unknown) (no (unknown) (unknown) Blood Pressure (units (unknown) date) 126/65 unknown) (unknown) (no (unknown) (unknown) Blood Pressure (units (unknown) date) 137/82 unknown) (unknown) (no (unknown) (unknown) Blood Pressure (units (unknown) date) 120/77 120/77 unknown) 119/78 (unknown) (no (unknown) (unknown) Blood Type O (units (unknown) date) Positive unknown) (unknown) (no (unknown) (unknown) Blood Type (units (unk nown) date) unknown) (unknown) (no (unknown) (unknown) Calcium (units (unkno wn) date) unknown) (unknown) (no (unknown) (unknown) Calcium 9.4 (units ( unknown) date) unknown) (unknown) (no (unknown) (unknown) Carbon Dioxide (units (unknown) date) unknown) (unknown) (no (unknown) (unknown) Carbon Dioxide (units (unknown) date) 20 L unknown) (unknown) (no (unknown) (unknown) Chief complaint: (units (unknown) date) Lower abdominal unknown) pain, hematemasis melana (unknown) (no (unknown) (unknown) Chloride (units (unkno wn) date) unknown) (unknown) (no (unknown) (unknown) Chloride 106 (units (unknown) date) unknown) (unknown) (no (unknown) (unknown) Creatinine (units (unk nown) date) unknown) (unknown) (no (unknown) (unknown) Creatinine 0.62 (units (unknown) date) unknown) (unknown) (no (unknown) (unknown) Critical Care (units ( unknown) date) time: unknown) (unknown) (no (unknown) (unknown) : 1995 (units (unknown) date) Acct:[id number] unknown) (unknown) (no (unknown) (unknown) Date Patient (units (u nknown) date) Seen: 01/15/22 unknown) (unknown) (no (unknown) (unknown) Environment (units (un known) date) unknown) (unknown) (no (unknown) (unknown) Eos # (Auto) (units (u nknown) date) unknown) (unknown) (no (unknown) (unknown) Eos # (Auto) 0 (units (unknown) date) unknown) (unknown) (no (unknown) (unknown) Eos % (Auto) (units (u nknown) date) unknown) (unknown) (no (unknown) (unknown) Eos % (Auto) 0.2 (units (unknown) date) L unknown) (unknown) (no (unknown) (unknown) Estimated GFR (units ( unknown) date) unknown) (unknown) (no (unknown) (unknown) Estimated GFR > (units (unknown) date) 60 unknown) (unknown) (no (unknown) (unknown) Exam (units (unkno wn) date) unknown) (unknown) (no (unknown) (unknown) Exercise-induced (units (unknown) date) asthma unknown) (unknown) (no (unknown) (unknown) Family + Social (units (unknown) date) History unknown) (unknown) (no (unknown) (unknown) Feels Safe in (units ( unknown) date) Current Yes unknown) (unknown) (no (unknown) (unknown) Globulin (units (unkno wn) date) unknown) (unknown) (no (unknown) (unknown) Globulin 3.5 (units (unknown) date) unknown) (unknown) (no (unknown) (unknown) Glucose (units (unkno wn) date) unknown) (unknown) (no (unknown) (unknown) Glucose 93 (units (u nknown) date) unknown) (unknown) (no (unknown) (unknown) Hct (units (unkno wn) date) unknown) (unknown) (no (unknown) (unknown) Hct 43.1 (units (unkn own) date) unknown) (unknown) (no (unknown) (unknown) Hgb (units (unkno wn) date) unknown) (unknown) (no (unknown) (unknown) Hgb 15.2 (units (unkn own) date) unknown) (unknown) (no (unknown) (unknown) History of (units (unk nown) date) Present Illness unknown) (unknown) (no (unknown) (unknown) Home Medications (units (unknown) date) and Allergies unknown) (unknown) (no (unknown) (unknown) I spent a total (units (unknown) date) of [] minutes of unknown) critical care time on this patient's care (unknown) (no (unknown) (unknown) Chelsea Lebron is (units (unknown) date) a 26-year-old unknown) female with a past history of a lower GI bleed, (unknown) (no (unknown) (unknown) Labs (units (unkno wn) date) unknown) (unknown) (no (unknown) (unknown) Labs: (units (unkno wn) date) unknown) (unknown) (no (unknown) (unknown) Lipase (units (unkno wn) date) unknown) (unknown) (no (unknown) (unknown) Lipase 42 (units (un known) date) unknown) (unknown) (no (unknown) (unknown) Lupus (units (unkno wn) date) unknown) (unknown) (no (unknown) (unknown) Lymph # (Auto) (units (unknown) date) unknown) (unknown) (no (unknown) (unknown) Lymph # (Auto) (units (unknown) date) 2400 unknown) (unknown) (no (unknown) (unknown) Lymph % (Auto) (units (unknown) date) unknown) (unknown) (no (unknown) (unknown) Lymph % (Auto) (units (unknown) date) 18.1 L unknown) (unknown) (no (unknown) (unknown) MCH (units (unkno wn) date) unknown) (unknown) (no (unknown) (unknown) MCH 32.1 (units (unkn own) date) unknown) (unknown) (no (unknown) (unknown) MCHC (units (unkno wn) date) unknown) (unknown) (no (unknown) (unknown) MCHC 35.1 (units (unk nown) date) unknown) (unknown) (no (unknown) (unknown) MCV (units (unkno wn) date) unknown) (unknown) (no (unknown) (unknown) MCV 91.4 (units (unkn own) date) unknown) (unknown) (no (unknown) (unknown) Medical History (units (unknown) date) (Updated 01/15/22 unknown) @ 04:56 by Mario Ashraf DO) (unknown) (no (unknown) (unknown) Meds (units (unkno wn) date) unknown) (unknown) (no (unknown) (unknown) Reagan # (Auto) (units ( unknown) date) unknown) (unknown) (no (unknown) (unknown) Reagan # (Auto) (units ( unknown) date) 400 unknown) (unknown) (no (unknown) (unknown) Reagan % (Auto) (units ( unknown) date) unknown) (unknown) (no (unknown) (unknown) Reagan % (Auto) (units ( unknown) date) 3.2 unknown) (unknown) (no (unknown) (unknown) Narrative: (units (unk nown) date) unknown) (unknown) (no (unknown) (unknown) Neut # (Auto) (units ( unknown) date) unknown) (unknown) (no (unknown) (unknown) Neut # (Auto) (units ( unknown) date) 32728 H unknown) (unknown) (no (unknown) (unknown) Neut % (Auto) (units ( unknown) date) unknown) (unknown) (no (unknown) (unknown) Neut % (Auto) (units ( unknown) date) 78.2 H unknown) (unknown) (no (unknown) (unknown) Objective (units (unkn own) date) unknown) (unknown) (no (unknown) (unknown) Oxygen Delivery (units (unknown) date) Method Room Air unknown) (unknown) (no (unknown) (unknown) Oxygen Flow Rate (units (unknown) date) 0 unknown) (unknown) (no (unknown) (unknown) Patient History (units (unknown) date) unknown) (unknown) (no (unknown) (unknown) Patient: (units (unkno wn) date) Chelsea Lebron unknown) MR#: [id number] (unknown) (no (unknown) (unknown) Penicillins (units (un known) date) [PENICILLINS] unknown) Allergy Unknown Verified 11/15/21 14:12 (unknown) (no (unknown) (unknown) Plt Count (units (unkn own) date) unknown) (unknown) (no (unknown) (unknown) Plt Count 367 (units (unknown) date) unknown) (unknown) (no (unknown) (unknown) Potassium (units (unkn own) date) unknown) (unknown) (no (unknown) (unknown) Potassium 3.7 (units (unknown) date) unknown) (unknown) (no (unknown) (unknown) Provider: (units (unkn own) date) Radha House unknown) (unknown) (no (unknown) (unknown) Pulse Oximetry (units (unknown) date) 100 100 99 unknown) (unknown) (no (unknown) (unknown) Pulse Oximetry 96 (units (unknown) date) 98 97 unknown) (unknown) (no (unknown) (unknown) Pulse Oximetry 97 (units (unknown) date) 98 98 unknown) (unknown) (no (unknown) (unknown) Pulse Oximetry 99 (units (unknown) date) 99 unknown) (unknown) (no (unknown) (unknown) Pulse Oximetry 99 (units (unknown) date) 97 98 unknown) (unknown) (no (unknown) (unknown) Pulse Rate 106 H (units (unknown) date) 120 H 121 H unknown) (unknown) (no (unknown) (unknown) Pulse Rate 116 H (units (unknown) date) 116 H unknown) (unknown) (no (unknown) (unknown) Pulse Rate 117 H (units (unknown) date) 117 H unknown) (unknown) (no (unknown) (unknown) Pulse Rate 122 H (units (unknown) date) 123 H 135 H unknown) (unknown) (no (unknown) (unknown) Pulse Rate 124 H (units (unknown) date) 126 H 124 H unknown) (unknown) (no (unknown) (unknown) RBC (units (unkno wn) date) unknown) (unknown) (no (unknown) (unknown) RBC 4.72 (units (unkn own) date) unknown) (unknown) (no (unknown) (unknown) RDW (units (unkno wn) date) unknown) (unknown) (no (unknown) (unknown) RDW 12.5 (units (unkn own) date) unknown) (unknown) (no (unknown) (unknown) Respiratory Rate (units (unknown) date) unknown) (unknown) (no (unknown) (unknown) Respiratory Rate (units (unknown) date) 17 unknown) (unknown) (no (unknown) (unknown) Result Diagrams: (units (unknown) date) unknown) (unknown) (no (unknown) (unknown) SARS-CoV-2 (PCR) (units (unknown) date) unknown) (unknown) (no (unknown) (unknown) SARS-CoV-2 (PCR) (units (unknown) date) Negative unknown) (unknown) (no (unknown) (unknown) Safety + (units (unkno wn) date) Behavioral: unknown) (unknown) (no (unknown) (unknown) Signed By: (units (unk nown) date) unknown) (unknown) (no (unknown) (unknown) Smoking Status (units (unknown) date) Never smoker unknown) (unknown) (no (unknown) (unknown) Sodium (units (unkno wn) date) unknown) (unknown) (no (unknown) (unknown) Sodium 137 (units (u nknown) date) unknown) (unknown) (no (unknown) (unknown) Substance Use (units ( unknown) date) Type marijuana unknown) (unknown) (no (unknown) (unknown) Temperature (units (un known) date) unknown) (unknown) (no (unknown) (unknown) Temperature 98.1 (units (unknown) date) F unknown) (unknown) (no (unknown) (unknown) Threatened By a (units (unknown) date) Person unknown) (unknown) (no (unknown) (unknown) Time Patient (units (u nknown) date) Seen: 03:00 unknown) (unknown) (no (unknown) (unknown) Time Spent With (units (unknown) date) Patient unknown) (unknown) (no (unknown) (unknown) Tobacco + (units (unkn own) date) Substance use: unknown) (unknown) (no (unknown) (unknown) Total Bilirubin (units (unknown) date) unknown) (unknown) (no (unknown) (unknown) Total Bilirubin (units (unknown) date) 0.5 unknown) (unknown) (no (unknown) (unknown) Total Protein (units ( unknown) date) unknown) (unknown) (no (unknown) (unknown) Total Protein (units ( unknown) date) 8.1 unknown) (unknown) (no (unknown) (unknown) Vital Signs (units (un known) date) unknown) (unknown) (no (unknown) (unknown) WBC (units (unkno wn) date) unknown) (unknown) (no (unknown) (unknown) WBC 13.4 H (units (un known) date) unknown) (unknown) (no (unknown) (unknown) X-ray acute (units (un known) date) abdomen series was unknown) negative, pelvis ultrasound was negative, CT of (unknown) (no (unknown) (unknown) [Embedded Image (units (unknown) date) Not Available] unknown) (unknown) (no (unknown) (unknown) abdominal pain (units (unknown) date) and was seen in unknown) the emergency department on January 09 and (unknown) (no (unknown) (unknown) aerosol inhaler (units (unknown) date) gram unknown) (unknown) (no (unknown) (unknown) albuterol sulfate (units (unknown) date) 90 mcg/actuation 2 unknown) puff INHALATION Q4-6H PRN #18 06/05/19 Rx (unknown) (no (unknown) (unknown) alcohol intake (units (unknown) date) frequency unknown) holiday/special occasion (unknown) (no (unknown) (unknown) as melena. They (units (unknown) date) sent her home with unknown) Mag citrate which she produced of quite a (unknown) (no (unknown) (unknown) associated mild (units (unknown) date) short-segment unknown) dilatation of the distal ileum likely secondary to (unknown) (no (unknown) (unknown) biopsies were (units ( unknown) date) negative. She unknown) states that her pain is very consistent but has (unknown) (no (unknown) (unknown) bit of stool and (units (unknown) date) has been having unknown) diarrhea ever since. She went her to her PCP (unknown) (no (unknown) (unknown) capsule,extended (units (unknown) date) release 24 hr unknown) (unknown) (no (unknown) (unknown) colon with (units (unk nown) date) air-fluid levels unknown) representing gastroenteritis or ileus, it noted (unknown) (no (unknown) (unknown) colonic (units (unkno wn) date) distension, she unknown) has a hypervascular lesion in the right hepatic lobe (unknown) (no (unknown) (unknown) colonoscopy and (units (unknown) date) endoscopy and it unknown) was found to have an inflamed colon but the (unknown) (no (unknown) (unknown) cyclobenzaprine (units (unknown) date) 10 mg tablet 10 mg unknown) PO TID PRN #12 tab 10/18/19 Rx (unknown) (no (unknown) (unknown) diagnosed with (units (unknown) date) obstipation. At unknown) that time she complained of hematemesis as well (unknown) (no (unknown) (unknown) doxycycline (units (un known) date) [DOXYCYCLINE] unknown) Allergy Unknown Verified 11/15/21 14:12 (unknown) (no (unknown) (unknown) famotidine 40 mg (units (unknown) date) tablet 40 mg PO unknown) DAILY #7 tab 05/14/21 Rx (unknown) (no (unknown) (unknown) for follow-up and (units (unknown) date) was found to still unknown) be constipated. In November she underwent (unknown) (no (unknown) (unknown) hydrocodone (units (un known) date) [HYDROCODONE] unknown) Allergy Unknown Verified 11/15/21 14:12 (unknown) (no (unknown) (unknown) kg with a BMI of (units (unknown) date) 41.7. unknown) (unknown) (no (unknown) (unknown) lidocaine Allergy (units (unknown) date) Verified unknown) 11/15/21 14:12 (unknown) (no (unknown) (unknown) lupus, colon (units (u nknown) date) polyps, and unknown) abdominal pain has had a several day history of severe (unknown) (no (unknown) (unknown) ondansetron 4 mg (units (unknown) date) disintegrating 4 unknown) mg PO 01/15/22 History (unknown) (no (unknown) (unknown) or changes in (units ( unknown) date) bowel or bladder unknown) control. (unknown) (no (unknown) (unknown) pantoprazole 40 (units (unknown) date) mg tablet,delayed unknown) 40 mg PO DAILY 01/15/22 01/15/22 History (unknown) (no (unknown) (unknown) rate 106, (units (unkn own) date) respiratory rate unknown) 16, oxygen saturation 98% on room air she weighs 75 (unknown) (no (unknown) (unknown) release (units (unkno wn) date) unknown) (unknown) (no (unknown) (unknown) representing a (units ( unknown) date) hemangioma. unknown) Patient is afebrile, blood pressure is 122/75, heart (unknown) (no (unknown) (unknown) sharp shooting (units (unknown) date) pains in the unknown) meantime. She has a history of an appendectomy in (unknown) (no (unknown) (unknown) shellfish derived (units (unknown) date) Allergy unknown) Anaphylaxis Verified 11/15/21 14:12 (unknown) (no (unknown) (unknown) tablet (units (unkno wn) date) unknown) (unknown) (no (unknown) (unknown) the abdomen and (units (unknown) date) pelvis did unknown) indicate findings of fluid distention throughout the (unknown) (no (unknown) (unknown) today; this time (units (unknown) date) is exclusive of unknown) procedural time. (unknown) (no (unknown) (unknown) venlafaxine 150 (units (unknown) date) mg 150 mg PO DAILY unknown) 01/15/22 01/15/22 History Result panel 21 (unknown) (no (unknown) (unknown) (no value) (units (unk nown) date) unknown) (unknown) (no (unknown) (unknown) (no value) (units (unk nown) date) unknown) (unknown) (no (unknown) (unknown) Date of Service: (units (unknown) date) 01/15/22 unknown) (unknown) (no (unknown) (unknown) (no value) (units (unk nown) date) unknown) (unknown) (no (unknown) (unknown) - (units (unkno wn) date) unknown) (unknown) (no (unknown) (unknown) 01/15/22 05:41 (units (unknown) date) unknown) (unknown) (no (unknown) (unknown) Allergies (units (unkn own) date) unknown) (unknown) (no (unknown) (unknown) History + (units (unkn own) date) Physical Report unknown) (unknown) (no (unknown) (unknown) Home Medications (units (unknown) date) unknown) (unknown) (no (unknown) (unknown) [facility] (units (unknown) date) [address] unknown) [place] [address] (unknown) (no (unknown) (unknown) Laboratory (units (unk nown) date) Results - last 24 unknown) hr (unknown) (no (unknown) (unknown) (no value) (units (unk nown) date) unknown) (unknown) (no (unknown) (unknown) 01/14/22 01/14/22 (units (unknown) date) 01/14/22 unknown) (unknown) (no (unknown) (unknown) 01/15/22 (units (unkno wn) date) unknown) (unknown) (no (unknown) (unknown) 18:35 18:35 18:35 (units (unknown) date) unknown) (unknown) (no (unknown) (unknown) 23:52 (units (unkno wn) date) unknown) (unknown) (no (unknown) (unknown) 01/14/22 (units (unkno wn) date) unknown) (unknown) (no (unknown) (unknown) 01/15/22 (units (unkno wn) date) unknown) (unknown) (no (unknown) (unknown) Medication (units (unk nown) date) Instructions unknown) Recorded Confirmed Type (unknown) (no (unknown) (unknown) (past 8 hours): (units (unknown) date) unknown) (unknown) (no (unknown) (unknown) 00:00 (units (unkno wn) date) unknown) (unknown) (no (unknown) (unknown) 00:30 01/15/22 (units (unknown) date) unknown) (unknown) (no (unknown) (unknown) 01:15 01/15/22 (units (unknown) date) unknown) (unknown) (no (unknown) (unknown) 01:16 (units (unkno wn) date) unknown) (unknown) (no (unknown) (unknown) 01:30 01/15/22 (units (unknown) date) unknown) (unknown) (no (unknown) (unknown) 01:40 01/15/22 (units (unknown) date) unknown) (unknown) (no (unknown) (unknown) 02:54 (units (unkno wn) date) unknown) (unknown) (no (unknown) (unknown) [id number] (units (unkno wn) date) unknown) (unknown) (no (unknown) (unknown) 2020. She denies (units (unknown) date) fevers sweats, unknown) denies shortness of breath, chest pain, dysuria (unknown) (no (unknown) (unknown) 20:30 01/14/22 (units (unknown) date) unknown) (unknown) (no (unknown) (unknown) 20:32 01/14/22 (units (unknown) date) unknown) (unknown) (no (unknown) (unknown) 21:00 (units (unkno wn) date) unknown) (unknown) (no (unknown) (unknown) 21:30 01/14/22 (units (unknown) date) unknown) (unknown) (no (unknown) (unknown) 22:00 01/14/22 (units (unknown) date) unknown) (unknown) (no (unknown) (unknown) 22:30 (units (unkno wn) date) unknown) (unknown) (no (unknown) (unknown) 23:00 01/14/22 (units (unknown) date) unknown) (unknown) (no (unknown) (unknown) 23:30 01/15/22 (units (unknown) date) unknown) (unknown) (no (unknown) (unknown) ALT (units (unkno wn) date) unknown) (unknown) (no (unknown) (unknown) ALT 18 (units (unkno wn) date) unknown) (unknown) (no (unknown) (unknown) AST (units (unkno wn) date) unknown) (unknown) (no (unknown) (unknown) AST 24 (units (unkno wn) date) unknown) (unknown) (no (unknown) (unknown) Abd: soft, (units (unk nown) date) non-tender, unknown) normoactive BTs (unknown) (no (unknown) (unknown) Age/Sex: 26 / F (units (unknown) date) unknown) (unknown) (no (unknown) (unknown) Albumin (units (unkno wn) date) unknown) (unknown) (no (unknown) (unknown) Albumin 4.6 (units ( unknown) date) unknown) (unknown) (no (unknown) (unknown) Albumin/Globulin (units (unknown) date) Ratio unknown) (unknown) (no (unknown) (unknown) Albumin/Globulin (units (unknown) date) Ratio 1.3 unknown) (unknown) (no (unknown) (unknown) Alkaline (units (unkno wn) date) Phosphatase unknown) (unknown) (no (unknown) (unknown) Alkaline (units (unkno wn) date) Phosphatase 127 unknown) H (unknown) (no (unknown) (unknown) Allergy/AdvReac (units (unknown) date) Type Severity unknown) Reaction Status Date / Time (unknown) (no (unknown) (unknown) Antibody Screen (units (unknown) date) Negative unknown) (unknown) (no (unknown) (unknown) Antibody Screen (units (unknown) date) unknown) (unknown) (no (unknown) (unknown) Anxiety (units (unkno wn) date) unknown) (unknown) (no (unknown) (unknown) Assessment + Plan (units (unknown) date) unknown) (unknown) (no (unknown) (unknown) BUN (units (unkno wn) date) unknown) (unknown) (no (unknown) (unknown) BUN 10 (units (unkno wn) date) unknown) (unknown) (no (unknown) (unknown) BUN/Creatinine (units (unknown) date) Ratio unknown) (unknown) (no (unknown) (unknown) BUN/Creatinine (units (unknown) date) Ratio 16.1 unknown) (unknown) (no (unknown) (unknown) Baso # (Auto) (units ( unknown) date) unknown) (unknown) (no (unknown) (unknown) Baso # (Auto) 0 (units (unknown) date) unknown) (unknown) (no (unknown) (unknown) Baso % (Auto) (units ( unknown) date) unknown) (unknown) (no (unknown) (unknown) Baso % (Auto) (units ( unknown) date) 0.3 unknown) (unknown) (no (unknown) (unknown) Been Physically (units (unknown) date) Hurt or No unknown) (unknown) (no (unknown) (unknown) Blood Pressure (units (unknown) date) unknown) (unknown) (no (unknown) (unknown) Blood Pressure (units (unknown) date) 126/65 unknown) (unknown) (no (unknown) (unknown) Blood Pressure (units (unknown) date) 137/82 unknown) (unknown) (no (unknown) (unknown) Blood Pressure (units (unknown) date) 120/77 120/77 unknown) 119/78 (unknown) (no (unknown) (unknown) Blood Type O (units (unknown) date) Positive unknown) (unknown) (no (unknown) (unknown) Blood Type (units (unk nown) date) unknown) (unknown) (no (unknown) (unknown) CV: RRR, no (units (un known) date) murmur or rubs unknown) (unknown) (no (unknown) (unknown) Calcium (units (unkno wn) date) unknown) (unknown) (no (unknown) (unknown) Calcium 9.4 (units ( unknown) date) unknown) (unknown) (no (unknown) (unknown) Carbon Dioxide (units (unknown) date) unknown) (unknown) (no (unknown) (unknown) Carbon Dioxide (units (unknown) date) 20 L unknown) (unknown) (no (unknown) (unknown) Chief complaint: (units (unknown) date) Lower abdominal unknown) pain, hematemasis melana (unknown) (no (unknown) (unknown) Chloride (units (unkno wn) date) unknown) (unknown) (no (unknown) (unknown) Chloride 106 (units (unknown) date) unknown) (unknown) (no (unknown) (unknown) Creatinine (units (unk nown) date) unknown) (unknown) (no (unknown) (unknown) Creatinine 0.62 (units (unknown) date) unknown) (unknown) (no (unknown) (unknown) Critical Care (units ( unknown) date) time: unknown) (unknown) (no (unknown) (unknown) : 1995 (units (unknown) date) Acct:[id number] unknown) (unknown) (no (unknown) (unknown) Date Patient (units (u nknown) date) Seen: 01/15/22 unknown) (unknown) (no (unknown) (unknown) Environment (units (un known) date) unknown) (unknown) (no (unknown) (unknown) Eos # (Auto) (units (u nknown) date) unknown) (unknown) (no (unknown) (unknown) Eos # (Auto) 0 (units (unknown) date) unknown) (unknown) (no (unknown) (unknown) Eos % (Auto) (units (u nknown) date) unknown) (unknown) (no (unknown) (unknown) Eos % (Auto) 0.2 (units (unknown) date) L unknown) (unknown) (no (unknown) (unknown) Estimated GFR (units ( unknown) date) unknown) (unknown) (no (unknown) (unknown) Estimated GFR > (units (unknown) date) 60 unknown) (unknown) (no (unknown) (unknown) Exam (units (unkno wn) date) unknown) (unknown) (no (unknown) (unknown) Exam Narrative: (units (unknown) date) unknown) (unknown) (no (unknown) (unknown) Exercise-induced (units (unknown) date) asthma unknown) (unknown) (no (unknown) (unknown) Extremities: (units (u nknown) date) moves all 4 unknown) extremities, is ambulatory, negative Adithya?s sign (unknown) (no (unknown) (unknown) Family + Social (units (unknown) date) History unknown) (unknown) (no (unknown) (unknown) Family History (units (unknown) date) (Updated 01/15/22 unknown) @ 06:47 by AI Flores) (unknown) (no (unknown) (unknown) Feels Safe in (units ( unknown) date) Current Yes unknown) (unknown) (no (unknown) (unknown) Gen: Alert, (units (un known) date) oriented, unknown) well-developed [] y.o. [] fe[]male, NAD (unknown) (no (unknown) (unknown) Globulin (units (unkno wn) date) unknown) (unknown) (no (unknown) (unknown) Globulin 3.5 (units (unknown) date) unknown) (unknown) (no (unknown) (unknown) Glucose (units (unkno wn) date) unknown) (unknown) (no (unknown) (unknown) Glucose 93 (units (u nknown) date) unknown) (unknown) (no (unknown) (unknown) HEENT: (units (unkno wn) date) normocephalic, unknown) atraumatic, conjunctiva clear, sclera non-icteric, oral (unknown) (no (unknown) (unknown) Hct (units (unkno wn) date) unknown) (unknown) (no (unknown) (unknown) Hct 43.1 (units (unkn own) date) unknown) (unknown) (no (unknown) (unknown) Hgb (units (unkno wn) date) unknown) (unknown) (no (unknown) (unknown) Hgb 15.2 (units (unkn own) date) unknown) (unknown) (no (unknown) (unknown) History of (units (unk nown) date) Present Illness unknown) (unknown) (no (unknown) (unknown) Home Medications (units (unknown) date) and Allergies unknown) (unknown) (no (unknown) (unknown) I spent a total (units (unknown) date) of [] minutes of unknown) critical care time on this patient's care (unknown) (no (unknown) (unknown) Chelsea Lebron is (units (unknown) date) a 26-year-old unknown) female with a past history of a lower GI bleed, (unknown) (no (unknown) (unknown) Labs (units (unkno wn) date) unknown) (unknown) (no (unknown) (unknown) Labs: (units (unkno wn) date) unknown) (unknown) (no (unknown) (unknown) Lipase (units (unkno wn) date) unknown) (unknown) (no (unknown) (unknown) Lipase 42 (units (un known) date) unknown) (unknown) (no (unknown) (unknown) Lupus (units (unkno wn) date) unknown) (unknown) (no (unknown) (unknown) Lymph # (Auto) (units (unknown) date) unknown) (unknown) (no (unknown) (unknown) Lymph # (Auto) (units (unknown) date) 2400 unknown) (unknown) (no (unknown) (unknown) Lymph % (Auto) (units (unknown) date) unknown) (unknown) (no (unknown) (unknown) Lymph % (Auto) (units (unknown) date) 18.1 L unknown) (unknown) (no (unknown) (unknown) MCH (units (unkno wn) date) unknown) (unknown) (no (unknown) (unknown) MCH 32.1 (units (unkn own) date) unknown) (unknown) (no (unknown) (unknown) MCHC (units (unkno wn) date) unknown) (unknown) (no (unknown) (unknown) MCHC 35.1 (units (unk nown) date) unknown) (unknown) (no (unknown) (unknown) MCV (units (unkno wn) date) unknown) (unknown) (no (unknown) (unknown) MCV 91.4 (units (unkn own) date) unknown) (unknown) (no (unknown) (unknown) Medical History (units (unknown) date) (Reviewed 01/15/22 unknown) @ 06:46 by AI Flores) (unknown) (no (unknown) (unknown) Meds (units (unkno wn) date) unknown) (unknown) (no (unknown) (unknown) Reagan # (Auto) (units ( unknown) date) unknown) (unknown) (no (unknown) (unknown) Reagan # (Auto) (units ( unknown) date) 400 unknown) (unknown) (no (unknown) (unknown) Reagan % (Auto) (units ( unknown) date) unknown) (unknown) (no (unknown) (unknown) Reagan % (Auto) (units ( unknown) date) 3.2 unknown) (unknown) (no (unknown) (unknown) Mother Bowel (units (unknown) date) obstruction unknown) (unknown) (no (unknown) (unknown) Narrative (units (unkn own) date) unknown) (unknown) (no (unknown) (unknown) Narrative: (units (unk nown) date) unknown) (unknown) (no (unknown) (unknown) Neck: supple, (units ( unknown) date) full ROM, no JVD, unknown) trachea is midline (unknown) (no (unknown) (unknown) Neuro: Alert and (units (unknown) date) oriented X 4 w/no unknown) focal deficits. Speech clear and coherent. (unknown) (no (unknown) (unknown) Neut # (Auto) (units ( unknown) date) unknown) (unknown) (no (unknown) (unknown) Neut # (Auto) (units ( unknown) date) 01753 H unknown) (unknown) (no (unknown) (unknown) Neut % (Auto) (units ( unknown) date) unknown) (unknown) (no (unknown) (unknown) Neut % (Auto) (units ( unknown) date) 78.2 H unknown) (unknown) (no (unknown) (unknown) Objective (units (unkn own) date) unknown) (unknown) (no (unknown) (unknown) Oxygen Delivery (units (unknown) date) Method Room Air unknown) (unknown) (no (unknown) (unknown) Oxygen Flow Rate (units (unknown) date) 0 unknown) (unknown) (no (unknown) (unknown) Patient History (units (unknown) date) unknown) (unknown) (no (unknown) (unknown) Patient: (units (unkno wn) date) Chelsea Lebron unknown) MR#: [id number] (unknown) (no (unknown) (unknown) Penicillins (units (un known) date) [PENICILLINS] unknown) Allergy Unknown Verified 11/15/21 14:12 (unknown) (no (unknown) (unknown) Plt Count (units (unkn own) date) unknown) (unknown) (no (unknown) (unknown) Plt Count 367 (units (unknown) date) unknown) (unknown) (no (unknown) (unknown) Potassium (units (unkn own) date) unknown) (unknown) (no (unknown) (unknown) Potassium 3.7 (units (unknown) date) unknown) (unknown) (no (unknown) (unknown) Provider: (units (unkn own) date) Radha House unknown) (unknown) (no (unknown) (unknown) Psyche: normal (units (unknown) date) mood and affect. unknown) (unknown) (no (unknown) (unknown) Pulse Oximetry (units (unknown) date) 100 100 99 unknown) (unknown) (no (unknown) (unknown) Pulse Oximetry 96 (units (unknown) date) 98 97 unknown) (unknown) (no (unknown) (unknown) Pulse Oximetry 97 (units (unknown) date) 98 98 unknown) (unknown) (no (unknown) (unknown) Pulse Oximetry 99 (units (unknown) date) 99 unknown) (unknown) (no (unknown) (unknown) Pulse Oximetry 99 (units (unknown) date) 97 98 unknown) (unknown) (no (unknown) (unknown) Pulse Rate 106 H (units (unknown) date) 120 H 121 H unknown) (unknown) (no (unknown) (unknown) Pulse Rate 116 H (units (unknown) date) 116 H unknown) (unknown) (no (unknown) (unknown) Pulse Rate 117 H (units (unknown) date) 117 H unknown) (unknown) (no (unknown) (unknown) Pulse Rate 122 H (units (unknown) date) 123 H 135 H unknown) (unknown) (no (unknown) (unknown) Pulse Rate 124 H (units (unknown) date) 126 H 124 H unknown) (unknown) (no (unknown) (unknown) RBC (units (unkno wn) date) unknown) (unknown) (no (unknown) (unknown) RBC 4.72 (units (unkn own) date) unknown) (unknown) (no (unknown) (unknown) RDW (units (unkno wn) date) unknown) (unknown) (no (unknown) (unknown) RDW 12.5 (units (unkn own) date) unknown) (unknown) (no (unknown) (unknown) ROS: Yes All (units (u nknown) date) systems reviewed unknown) with the patient and are negative except as (unknown) (no (unknown) (unknown) Resp: Lungs CTA, (units (unknown) date) non-labored unknown) breathing (unknown) (no (unknown) (unknown) Respiratory Rate (units (unknown) date) unknown) (unknown) (no (unknown) (unknown) Respiratory Rate (units (unknown) date) 17 unknown) (unknown) (no (unknown) (unknown) Result Diagrams: (units (unknown) date) unknown) (unknown) (no (unknown) (unknown) Review of Systems (units (unknown) date) unknown) (unknown) (no (unknown) (unknown) SARS-CoV-2 (PCR) (units (unknown) date) unknown) (unknown) (no (unknown) (unknown) SARS-CoV-2 (PCR) (units (unknown) date) Negative unknown) (unknown) (no (unknown) (unknown) Safety + (units (unkno wn) date) Behavioral: unknown) (unknown) (no (unknown) (unknown) Signed By: (units (unk nown) date) unknown) (unknown) (no (unknown) (unknown) Sister Bowel (units (unknown) date) obstruction unknown) (unknown) (no (unknown) (unknown) Skin: no lesions (units (unknown) date) or rashes, dry and unknown) intact (unknown) (no (unknown) (unknown) Smoking Status (units (unknown) date) Never smoker unknown) (unknown) (no (unknown) (unknown) Sodium (units (unkno wn) date) unknown) (unknown) (no (unknown) (unknown) Sodium 137 (units (u nknown) date) unknown) (unknown) (no (unknown) (unknown) Substance Use (units ( unknown) date) Type marijuana unknown) (unknown) (no (unknown) (unknown) Temperature (units (un known) date) unknown) (unknown) (no (unknown) (unknown) Temperature 98.1 (units (unknown) date) F unknown) (unknown) (no (unknown) (unknown) Threatened By a (units (unknown) date) Person unknown) (unknown) (no (unknown) (unknown) Time Patient (units (u nknown) date) Seen: 03:00 unknown) (unknown) (no (unknown) (unknown) Time Spent With (units (unknown) date) Patient unknown) (unknown) (no (unknown) (unknown) Tobacco + (units (unkn own) date) Substance use: unknown) (unknown) (no (unknown) (unknown) Total Bilirubin (units (unknown) date) unknown) (unknown) (no (unknown) (unknown) Total Bilirubin (units (unknown) date) 0.5 unknown) (unknown) (no (unknown) (unknown) Total Protein (units ( unknown) date) unknown) (unknown) (no (unknown) (unknown) Total Protein (units ( unknown) date) 8.1 unknown) (unknown) (no (unknown) (unknown) Vital Signs (units (un known) date) unknown) (unknown) (no (unknown) (unknown) WBC (units (unkno wn) date) unknown) (unknown) (no (unknown) (unknown) WBC 13.4 H (units (un known) date) unknown) (unknown) (no (unknown) (unknown) X-ray acute (units (un known) date) abdomen series was unknown) negative, pelvis ultrasound was negative, CT of (unknown) (no (unknown) (unknown) [Embedded Image (units (unknown) date) Not Available] unknown) (unknown) (no (unknown) (unknown) abdominal pain (units (unknown) date) and was seen in unknown) the emergency department on January 09 and (unknown) (no (unknown) (unknown) aerosol inhaler (units (unknown) date) gram unknown) (unknown) (no (unknown) (unknown) albuterol sulfate (units (unknown) date) 90 mcg/actuation 2 unknown) puff INHALATION Q4-6H PRN #18 06/05/19 Rx (unknown) (no (unknown) (unknown) alcohol intake (units (unknown) date) frequency unknown) holiday/special occasion (unknown) (no (unknown) (unknown) as melena. They (units (unknown) date) sent her home with unknown) Mag citrate which she produced of quite a (unknown) (no (unknown) (unknown) associated mild (units (unknown) date) short-segment unknown) dilatation of the distal ileum likely secondary to (unknown) (no (unknown) (unknown) biopsies were (units ( unknown) date) negative. She unknown) states that her pain is very consistent but has (unknown) (no (unknown) (unknown) bit of stool and (units (unknown) date) has been having unknown) diarrhea ever since. She went her to her PCP (unknown) (no (unknown) (unknown) capsule,extended (units (unknown) date) release 24 hr unknown) (unknown) (no (unknown) (unknown) colon with (units (unk nown) date) air-fluid levels unknown) representing gastroenteritis or ileus, it noted (unknown) (no (unknown) (unknown) colonic (units (unkno wn) date) distension, she unknown) has a hypervascular lesion in the right hepatic lobe (unknown) (no (unknown) (unknown) colonoscopy and (units (unknown) date) endoscopy and it unknown) was found to have an inflamed colon but the (unknown) (no (unknown) (unknown) cyclobenzaprine (units (unknown) date) 10 mg tablet 10 mg unknown) PO TID PRN #12 tab 10/18/19 Rx (unknown) (no (unknown) (unknown) diagnosed with (units (unknown) date) obstipation. At unknown) that time she complained of hematemesis as well (unknown) (no (unknown) (unknown) doxycycline (units (un known) date) [DOXYCYCLINE] unknown) Allergy Unknown Verified 11/15/21 14:12 (unknown) (no (unknown) (unknown) famotidine 40 mg (units (unknown) date) tablet 40 mg PO unknown) DAILY #7 tab 05/14/21 Rx (unknown) (no (unknown) (unknown) for follow-up and (units (unknown) date) was found to still unknown) be constipated. In November she underwent (unknown) (no (unknown) (unknown) hydrocodone (units (un known) date) [HYDROCODONE] unknown) Allergy Unknown Verified 11/15/21 14:12 (unknown) (no (unknown) (unknown) kg with a BMI of (units (unknown) date) 41.7. unknown) (unknown) (no (unknown) (unknown) lidocaine Allergy (units (unknown) date) Verified unknown) 11/15/21 14:12 (unknown) (no (unknown) (unknown) lupus, colon (units (u nknown) date) polyps, and unknown) abdominal pain has had a several day history of severe (unknown) (no (unknown) (unknown) mucosa pink and (units (unknown) date) moist unknown) (unknown) (no (unknown) (unknown) ondansetron 4 mg (units (unknown) date) disintegrating 4 unknown) mg PO 01/15/22 History (unknown) (no (unknown) (unknown) or changes in (units ( unknown) date) bowel or bladder unknown) control. (unknown) (no (unknown) (unknown) otherwise (units (unkn own) date) documented unknown) (unknown) (no (unknown) (unknown) pantoprazole 40 (units (unknown) date) mg tablet,delayed unknown) 40 mg PO DAILY 01/15/22 01/15/22 History (unknown) (no (unknown) (unknown) rate 106, (units (unkn own) date) respiratory rate unknown) 16, oxygen saturation 98% on room air she weighs 75 (unknown) (no (unknown) (unknown) release (units (unkno wn) date) unknown) (unknown) (no (unknown) (unknown) representing a (units ( unknown) date) hemangioma. unknown) Patient is afebrile, blood pressure is 122/75, heart (unknown) (no (unknown) (unknown) sharp shooting (units (unknown) date) pains in the unknown) meantime. She has a history of an appendectomy in (unknown) (no (unknown) (unknown) shellfish derived (units (unknown) date) Allergy unknown) Anaphylaxis Verified 11/15/21 14:12 (unknown) (no (unknown) (unknown) tablet (units (unkno wn) date) unknown) (unknown) (no (unknown) (unknown) the abdomen and (units (unknown) date) pelvis did unknown) indicate findings of fluid distention throughout the (unknown) (no (unknown) (unknown) today; this time (units (unknown) date) is exclusive of unknown) procedural time. (unknown) (no (unknown) (unknown) venlafaxine 150 (units (unknown) date) mg 150 mg PO DAILY unknown) 01/15/22 01/15/22 History Result panel 22 (unknown) (no (unknown) (unknown) (no value) (units (unk nown) date) unknown) (unknown) (no (unknown) (unknown) (no value) (units (unk nown) date) unknown) (unknown) (no (unknown) (unknown) Date of Service: (units (unknown) date) 01/15/22 unknown) (unknown) (no (unknown) (unknown) (no value) (units (unk nown) date) unknown) (unknown) (no (unknown) (unknown) - (units (unkno wn) date) unknown) (unknown) (no (unknown) (unknown) 01/15/22 05:41 (units (unknown) date) unknown) (unknown) (no (unknown) (unknown) Allergies (units (unkn own) date) unknown) (unknown) (no (unknown) (unknown) History + (units (unkn own) date) Physical Report unknown) (unknown) (no (unknown) (unknown) Home Medications (units (unknown) date) unknown) (unknown) (no (unknown) (unknown) [facility] (units (unknown) date) [address] unknown) [place] [id number] (unknown) (no (unknown) (unknown) Laboratory (units (unk nown) date) Results - last 24 unknown) hr (unknown) (no (unknown) (unknown) (no value) (units (unk nown) date) unknown) (unknown) (no (unknown) (unknown) 01/14/22 01/14/22 (units (unknown) date) 01/14/22 unknown) (unknown) (no (unknown) (unknown) 01/15/22 (units (unkno wn) date) unknown) (unknown) (no (unknown) (unknown) 18:35 18:35 18:35 (units (unknown) date) unknown) (unknown) (no (unknown) (unknown) 23:52 (units (unkno wn) date) unknown) (unknown) (no (unknown) (unknown) 01/14/22 (units (unkno wn) date) unknown) (unknown) (no (unknown) (unknown) 01/15/22 (units (unkno wn) date) unknown) (unknown) (no (unknown) (unknown) Medication (units (unk nown) date) Instructions unknown) Recorded Confirmed Type (unknown) (no (unknown) (unknown) (past 8 hours): (units (unknown) date) unknown) (unknown) (no (unknown) (unknown) 00:00 (units (unkno wn) date) unknown) (unknown) (no (unknown) (unknown) 00:30 01/15/22 (units (unknown) date) unknown) (unknown) (no (unknown) (unknown) 01:15 01/15/22 (units (unknown) date) unknown) (unknown) (no (unknown) (unknown) 01:16 (units (unkno wn) date) unknown) (unknown) (no (unknown) (unknown) 01:30 01/15/22 (units (unknown) date) unknown) (unknown) (no (unknown) (unknown) 01:40 01/15/22 (units (unknown) date) unknown) (unknown) (no (unknown) (unknown) 02:54 (units (unkno wn) date) unknown) (unknown) (no (unknown) (unknown) [id number] (units (unkno wn) date) unknown) (unknown) (no (unknown) (unknown) 2020. She denies (units (unknown) date) fevers sweats, unknown) denies shortness of breath, chest pain, dysuria (unknown) (no (unknown) (unknown) 20:30 01/14/22 (units (unknown) date) unknown) (unknown) (no (unknown) (unknown) 20:32 01/14/22 (units (unknown) date) unknown) (unknown) (no (unknown) (unknown) 21:00 (units (unkno wn) date) unknown) (unknown) (no (unknown) (unknown) 21:30 01/14/22 (units (unknown) date) unknown) (unknown) (no (unknown) (unknown) 22:00 01/14/22 (units (unknown) date) unknown) (unknown) (no (unknown) (unknown) 22:30 (units (unkno wn) date) unknown) (unknown) (no (unknown) (unknown) 23:00 01/14/22 (units (unknown) date) unknown) (unknown) (no (unknown) (unknown) 23:30 01/15/22 (units (unknown) date) unknown) (unknown) (no (unknown) (unknown) ALT (units (unkno wn) date) unknown) (unknown) (no (unknown) (unknown) ALT 18 (units (unkno wn) date) unknown) (unknown) (no (unknown) (unknown) AST (units (unkno wn) date) unknown) (unknown) (no (unknown) (unknown) AST 24 (units (unkno wn) date) unknown) (unknown) (no (unknown) (unknown) Abd: soft, (units (unk nown) date) non-distended, unknown) generalized tenderness, hypoactive BTs (unknown) (no (unknown) (unknown) Age/Sex: 26 / F (units (unknown) date) unknown) (unknown) (no (unknown) (unknown) Albumin (units (unkno wn) date) unknown) (unknown) (no (unknown) (unknown) Albumin 4.6 (units ( unknown) date) unknown) (unknown) (no (unknown) (unknown) Albumin/Globulin (units (unknown) date) Ratio unknown) (unknown) (no (unknown) (unknown) Albumin/Globulin (units (unknown) date) Ratio 1.3 unknown) (unknown) (no (unknown) (unknown) Alkaline (units (unkno wn) date) Phosphatase unknown) (unknown) (no (unknown) (unknown) Alkaline (units (unkno wn) date) Phosphatase 127 unknown) H (unknown) (no (unknown) (unknown) Allergy/AdvReac (units (unknown) date) Type Severity unknown) Reaction Status Date / Time (unknown) (no (unknown) (unknown) Antibody Screen (units (unknown) date) Negative unknown) (unknown) (no (unknown) (unknown) Antibody Screen (units (unknown) date) unknown) (unknown) (no (unknown) (unknown) Anxiety (units (unkno wn) date) unknown) (unknown) (no (unknown) (unknown) Assessment + Plan (units (unknown) date) unknown) (unknown) (no (unknown) (unknown) Assessment + Plan (units (unknown) date) narrative: unknown) (unknown) (no (unknown) (unknown) BUN (units (unkno wn) date) unknown) (unknown) (no (unknown) (unknown) BUN 10 (units (unkno wn) date) unknown) (unknown) (no (unknown) (unknown) BUN/Creatinine (units (unknown) date) Ratio unknown) (unknown) (no (unknown) (unknown) BUN/Creatinine (units (unknown) date) Ratio 16.1 unknown) (unknown) (no (unknown) (unknown) Baso # (Auto) (units ( unknown) date) unknown) (unknown) (no (unknown) (unknown) Baso # (Auto) 0 (units (unknown) date) unknown) (unknown) (no (unknown) (unknown) Baso % (Auto) (units ( unknown) date) unknown) (unknown) (no (unknown) (unknown) Baso % (Auto) (units ( unknown) date) 0.3 unknown) (unknown) (no (unknown) (unknown) Been Physically (units (unknown) date) Hurt or No unknown) (unknown) (no (unknown) (unknown) Blood Pressure (units (unknown) date) unknown) (unknown) (no (unknown) (unknown) Blood Pressure (units (unknown) date) 126/65 unknown) (unknown) (no (unknown) (unknown) Blood Pressure (units (unknown) date) 137/82 unknown) (unknown) (no (unknown) (unknown) Blood Pressure (units (unknown) date) 120/77 120/77 unknown) 119/78 (unknown) (no (unknown) (unknown) Blood Type O (units (unknown) date) Positive unknown) (unknown) (no (unknown) (unknown) Blood Type (units (unk nown) date) unknown) (unknown) (no (unknown) (unknown) CV: RRR, no (units (un known) date) murmur or rubs unknown) (unknown) (no (unknown) (unknown) Calcium (units (unkno wn) date) unknown) (unknown) (no (unknown) (unknown) Calcium 9.4 (units ( unknown) date) unknown) (unknown) (no (unknown) (unknown) Carbon Dioxide (units (unknown) date) unknown) (unknown) (no (unknown) (unknown) Carbon Dioxide (units (unknown) date) 20 L unknown) (unknown) (no (unknown) (unknown) Chief complaint: (units (unknown) date) Lower abdominal unknown) pain, hematemasis melana (unknown) (no (unknown) (unknown) Chloride (units (unkno wn) date) unknown) (unknown) (no (unknown) (unknown) Chloride 106 (units (unknown) date) unknown) (unknown) (no (unknown) (unknown) Creatinine (units (unk nown) date) unknown) (unknown) (no (unknown) (unknown) Creatinine 0.62 (units (unknown) date) unknown) (unknown) (no (unknown) (unknown) Critical Care (units ( unknown) date) time: unknown) (unknown) (no (unknown) (unknown) : 1995 (units (unknown) date) Acct:[id number] unknown) (unknown) (no (unknown) (unknown) Date Patient (units (u nknown) date) Seen: 01/15/22 unknown) (unknown) (no (unknown) (unknown) Environment (units (un known) date) unknown) (unknown) (no (unknown) (unknown) Eos # (Auto) (units (u nknown) date) unknown) (unknown) (no (unknown) (unknown) Eos # (Auto) 0 (units (unknown) date) unknown) (unknown) (no (unknown) (unknown) Eos % (Auto) (units (u nknown) date) unknown) (unknown) (no (unknown) (unknown) Eos % (Auto) 0.2 (units (unknown) date) L unknown) (unknown) (no (unknown) (unknown) Estimated GFR (units ( unknown) date) unknown) (unknown) (no (unknown) (unknown) Estimated GFR > (units (unknown) date) 60 unknown) (unknown) (no (unknown) (unknown) Exam (units (unkno wn) date) unknown) (unknown) (no (unknown) (unknown) Exam Narrative: (units (unknown) date) unknown) (unknown) (no (unknown) (unknown) Exercise-induced (units (unknown) date) asthma unknown) (unknown) (no (unknown) (unknown) Extremities: (units (u nknown) date) moves all 4 unknown) extremities, is ambulatory, negative Adithya?s sign (unknown) (no (unknown) (unknown) Family + Social (units (unknown) date) History unknown) (unknown) (no (unknown) (unknown) Family History (units (unknown) date) (Updated 01/15/22 unknown) @ 06:47 by AI Flores) (unknown) (no (unknown) (unknown) Feels Safe in (units ( unknown) date) Current Yes unknown) (unknown) (no (unknown) (unknown) Gen: Alert, (units (un known) date) oriented, well unknown) nourished 26 y.o. female, in mild distress (unknown) (no (unknown) (unknown) Globulin (units (unkno wn) date) unknown) (unknown) (no (unknown) (unknown) Globulin 3.5 (units (unknown) date) unknown) (unknown) (no (unknown) (unknown) Glucose (units (unkno wn) date) unknown) (unknown) (no (unknown) (unknown) Glucose 93 (units (u nknown) date) unknown) (unknown) (no (unknown) (unknown) HEENT: (units (unkno wn) date) normocephalic, unknown) atraumatic, conjunctiva clear, sclera non-icteric, oral (unknown) (no (unknown) (unknown) Hct (units (unkno wn) date) unknown) (unknown) (no (unknown) (unknown) Hct 43.1 (units (unkn own) date) unknown) (unknown) (no (unknown) (unknown) Hgb (units (unkno wn) date) unknown) (unknown) (no (unknown) (unknown) Hgb 15.2 (units (unkn own) date) unknown) (unknown) (no (unknown) (unknown) History of (units (unk nown) date) Present Illness unknown) (unknown) (no (unknown) (unknown) Home Medications (units (unknown) date) and Allergies unknown) (unknown) (no (unknown) (unknown) I spent a total (units (unknown) date) of [] minutes of unknown) critical care time on this patient's care (unknown) (no (unknown) (unknown) Chelsea Lebron is (units (unknown) date) a 26-year-old unknown) female with a past history of a lower GI bleed, (unknown) (no (unknown) (unknown) Chelsea Lebron is (units (unknown) date) placed into unknown) observation for (unknown) (no (unknown) (unknown) Labs (units (unkno wn) date) unknown) (unknown) (no (unknown) (unknown) Labs: (units (unkno wn) date) unknown) (unknown) (no (unknown) (unknown) Lipase (units (unkno wn) date) unknown) (unknown) (no (unknown) (unknown) Lipase 42 (units (un known) date) unknown) (unknown) (no (unknown) (unknown) Lupus (units (unkno wn) date) unknown) (unknown) (no (unknown) (unknown) Lymph # (Auto) (units (unknown) date) unknown) (unknown) (no (unknown) (unknown) Lymph # (Auto) (units (unknown) date) 2400 unknown) (unknown) (no (unknown) (unknown) Lymph % (Auto) (units (unknown) date) unknown) (unknown) (no (unknown) (unknown) Lymph % (Auto) (units (unknown) date) 18.1 L unknown) (unknown) (no (unknown) (unknown) MCH (units (unkno wn) date) unknown) (unknown) (no (unknown) (unknown) MCH 32.1 (units (unkn own) date) unknown) (unknown) (no (unknown) (unknown) MCHC (units (unkno wn) date) unknown) (unknown) (no (unknown) (unknown) MCHC 35.1 (units (unk nown) date) unknown) (unknown) (no (unknown) (unknown) MCV (units (unkno wn) date) unknown) (unknown) (no (unknown) (unknown) MCV 91.4 (units (unkn own) date) unknown) (unknown) (no (unknown) (unknown) Medical History (units (unknown) date) (Reviewed 01/15/22 unknown) @ 06:46 by AI Flores) (unknown) (no (unknown) (unknown) Meds (units (unkno wn) date) unknown) (unknown) (no (unknown) (unknown) Reagan # (Auto) (units ( unknown) date) unknown) (unknown) (no (unknown) (unknown) Reagan # (Auto) (units ( unknown) date) 400 unknown) (unknown) (no (unknown) (unknown) Reagan % (Auto) (units ( unknown) date) unknown) (unknown) (no (unknown) (unknown) Reagan % (Auto) (units ( unknown) date) 3.2 unknown) (unknown) (no (unknown) (unknown) Mother Bowel (units (unknown) date) obstruction unknown) (unknown) (no (unknown) (unknown) Narrative (units (unkn own) date) unknown) (unknown) (no (unknown) (unknown) Narrative: (units (unk nown) date) unknown) (unknown) (no (unknown) (unknown) Neck: supple, (units ( unknown) date) full ROM, no JVD, unknown) trachea is midline (unknown) (no (unknown) (unknown) Neuro: Alert and (units (unknown) date) oriented X 4 w/no unknown) focal deficits. Speech clear and coherent. (unknown) (no (unknown) (unknown) Neut # (Auto) (units ( unknown) date) unknown) (unknown) (no (unknown) (unknown) Neut # (Auto) (units ( unknown) date) 79475 H unknown) (unknown) (no (unknown) (unknown) Neut % (Auto) (units ( unknown) date) unknown) (unknown) (no (unknown) (unknown) Neut % (Auto) (units ( unknown) date) 78.2 H unknown) (unknown) (no (unknown) (unknown) Objective (units (unkn own) date) unknown) (unknown) (no (unknown) (unknown) Oxygen Delivery (units (unknown) date) Method Room Air unknown) (unknown) (no (unknown) (unknown) Oxygen Flow Rate (units (unknown) date) 0 unknown) (unknown) (no (unknown) (unknown) Patient History (units (unknown) date) unknown) (unknown) (no (unknown) (unknown) Patient: (units (unkno wn) date) Chelsea Lebron unknown) MR#: [id number] (unknown) (no (unknown) (unknown) Penicillins (units (un known) date) [PENICILLINS] unknown) Allergy Unknown Verified 11/15/21 14:12 (unknown) (no (unknown) (unknown) Plt Count (units (unkn own) date) unknown) (unknown) (no (unknown) (unknown) Plt Count 367 (units (unknown) date) unknown) (unknown) (no (unknown) (unknown) Potassium (units (unkn own) date) unknown) (unknown) (no (unknown) (unknown) Potassium 3.7 (units (unknown) date) unknown) (unknown) (no (unknown) (unknown) Provider: (units (unkn own) date) Radha House unknown) (unknown) (no (unknown) (unknown) Psyche: normal (units (unknown) date) mood and affect. unknown) (unknown) (no (unknown) (unknown) Pulse Oximetry (units (unknown) date) 100 100 99 unknown) (unknown) (no (unknown) (unknown) Pulse Oximetry 96 (units (unknown) date) 98 97 unknown) (unknown) (no (unknown) (unknown) Pulse Oximetry 97 (units (unknown) date) 98 98 unknown) (unknown) (no (unknown) (unknown) Pulse Oximetry 99 (units (unknown) date) 99 unknown) (unknown) (no (unknown) (unknown) Pulse Oximetry 99 (units (unknown) date) 97 98 unknown) (unknown) (no (unknown) (unknown) Pulse Rate 106 H (units (unknown) date) 120 H 121 H unknown) (unknown) (no (unknown) (unknown) Pulse Rate 116 H (units (unknown) date) 116 H unknown) (unknown) (no (unknown) (unknown) Pulse Rate 117 H (units (unknown) date) 117 H unknown) (unknown) (no (unknown) (unknown) Pulse Rate 122 H (units (unknown) date) 123 H 135 H unknown) (unknown) (no (unknown) (unknown) Pulse Rate 124 H (units (unknown) date) 126 H 124 H unknown) (unknown) (no (unknown) (unknown) RBC (units (unkno wn) date) unknown) (unknown) (no (unknown) (unknown) RBC 4.72 (units (unkn own) date) unknown) (unknown) (no (unknown) (unknown) RDW (units (unkno wn) date) unknown) (unknown) (no (unknown) (unknown) RDW 12.5 (units (unkn own) date) unknown) (unknown) (no (unknown) (unknown) ROS: Yes All (units (u nknown) date) systems reviewed unknown) with the patient and are negative except as (unknown) (no (unknown) (unknown) Resp: Lungs CTA, (units (unknown) date) non-labored unknown) breathing (unknown) (no (unknown) (unknown) Respiratory Rate (units (unknown) date) unknown) (unknown) (no (unknown) (unknown) Respiratory Rate (units (unknown) date) 17 unknown) (unknown) (no (unknown) (unknown) Result Diagrams: (units (unknown) date) unknown) (unknown) (no (unknown) (unknown) Review of Systems (units (unknown) date) unknown) (unknown) (no (unknown) (unknown) SARS-CoV-2 (PCR) (units (unknown) date) unknown) (unknown) (no (unknown) (unknown) SARS-CoV-2 (PCR) (units (unknown) date) Negative unknown) (unknown) (no (unknown) (unknown) Safety + (units (unkno wn) date) Behavioral: unknown) (unknown) (no (unknown) (unknown) Signed By: (units (unk nown) date) unknown) (unknown) (no (unknown) (unknown) Sister Bowel (units (unknown) date) obstruction unknown) (unknown) (no (unknown) (unknown) Skin: extensive (units (unknown) date) tatoos on both unknown) arms, no lesions or rashes, dry and intact (unknown) (no (unknown) (unknown) Smoking Status (units (unknown) date) Never smoker unknown) (unknown) (no (unknown) (unknown) Sodium (units (unkno wn) date) unknown) (unknown) (no (unknown) (unknown) Sodium 137 (units (u nknown) date) unknown) (unknown) (no (unknown) (unknown) Substance Use (units ( unknown) date) Type marijuana unknown) (unknown) (no (unknown) (unknown) Temperature (units (un known) date) unknown) (unknown) (no (unknown) (unknown) Temperature 98.1 (units (unknown) date) F unknown) (unknown) (no (unknown) (unknown) Threatened By a (units (unknown) date) Person unknown) (unknown) (no (unknown) (unknown) Time Patient (units (u nknown) date) Seen: 03:00 unknown) (unknown) (no (unknown) (unknown) Time Spent With (units (unknown) date) Patient unknown) (unknown) (no (unknown) (unknown) Tobacco + (units (unkn own) date) Substance use: unknown) (unknown) (no (unknown) (unknown) Total Bilirubin (units (unknown) date) unknown) (unknown) (no (unknown) (unknown) Total Bilirubin (units (unknown) date) 0.5 unknown) (unknown) (no (unknown) (unknown) Total Protein (units ( unknown) date) unknown) (unknown) (no (unknown) (unknown) Total Protein (units ( unknown) date) 8.1 unknown) (unknown) (no (unknown) (unknown) Vital Signs (units (un known) date) unknown) (unknown) (no (unknown) (unknown) WBC (units (unkno wn) date) unknown) (unknown) (no (unknown) (unknown) WBC 13.4 H (units (un known) date) unknown) (unknown) (no (unknown) (unknown) X-ray acute (units (un known) date) abdomen series was unknown) negative, pelvis ultrasound was negative, CT of (unknown) (no (unknown) (unknown) [Embedded Image (units (unknown) date) Not Available] unknown) (unknown) (no (unknown) (unknown) abdominal pain (units (unknown) date) and was seen in unknown) the emergency department on January 09 and (unknown) (no (unknown) (unknown) aerosol inhaler (units (unknown) date) gram unknown) (unknown) (no (unknown) (unknown) albuterol sulfate (units (unknown) date) 90 mcg/actuation 2 unknown) puff INHALATION Q4-6H PRN #18 06/05/19 Rx (unknown) (no (unknown) (unknown) alcohol intake (units (unknown) date) frequency unknown) holiday/special occasion (unknown) (no (unknown) (unknown) as melena. They (units (unknown) date) sent her home with unknown) Mag citrate which she produced of quite a (unknown) (no (unknown) (unknown) associated mild (units (unknown) date) short-segment unknown) dilatation of the distal ileum likely secondary to (unknown) (no (unknown) (unknown) biopsies were (units ( unknown) date) negative. She unknown) states that her pain is very consistent but has (unknown) (no (unknown) (unknown) bit of stool and (units (unknown) date) has been having unknown) diarrhea ever since. She went her to her PCP (unknown) (no (unknown) (unknown) capsule,extended (units (unknown) date) release 24 hr unknown) (unknown) (no (unknown) (unknown) colon with (units (unk nown) date) air-fluid levels unknown) representing gastroenteritis or ileus, it noted (unknown) (no (unknown) (unknown) colonic (units (unkno wn) date) distension, she unknown) has a hypervascular lesion in the right hepatic lobe (unknown) (no (unknown) (unknown) colonoscopy and (units (unknown) date) endoscopy and it unknown) was found to have an inflamed colon but the (unknown) (no (unknown) (unknown) cyclobenzaprine (units (unknown) date) 10 mg tablet 10 mg unknown) PO TID PRN #12 tab 10/18/19 Rx (unknown) (no (unknown) (unknown) diagnosed with (units (unknown) date) obstipation. At unknown) that time she complained of hematemesis as well (unknown) (no (unknown) (unknown) doxycycline (units (un known) date) [DOXYCYCLINE] unknown) Allergy Unknown Verified 11/15/21 14:12 (unknown) (no (unknown) (unknown) famotidine 40 mg (units (unknown) date) tablet 40 mg PO unknown) DAILY #7 tab 05/14/21 Rx (unknown) (no (unknown) (unknown) for follow-up and (units (unknown) date) was found to still unknown) be constipated. In November she underwent (unknown) (no (unknown) (unknown) hydrocodone (units (un known) date) [HYDROCODONE] unknown) Allergy Unknown Verified 11/15/21 14:12 (unknown) (no (unknown) (unknown) kg with a BMI of (units (unknown) date) 29.3 unknown) (unknown) (no (unknown) (unknown) lidocaine Allergy (units (unknown) date) Verified unknown) 11/15/21 14:12 (unknown) (no (unknown) (unknown) lupus, colon (units (u nknown) date) polyps, and unknown) abdominal pain has had a several day history of severe (unknown) (no (unknown) (unknown) mucosa pink and (units (unknown) date) moist unknown) (unknown) (no (unknown) (unknown) ondansetron 4 mg (units (unknown) date) disintegrating 4 unknown) mg PO 01/15/22 History (unknown) (no (unknown) (unknown) or changes in (units ( unknown) date) bowel or bladder unknown) control. (unknown) (no (unknown) (unknown) otherwise (units (unkn own) date) documented unknown) (unknown) (no (unknown) (unknown) pantoprazole 40 (units (unknown) date) mg tablet,delayed unknown) 40 mg PO DAILY 01/15/22 01/15/22 History (unknown) (no (unknown) (unknown) rate 106, (units (unkn own) date) respiratory rate unknown) 16, oxygen saturation 98% on room air she weighs 75 (unknown) (no (unknown) (unknown) release (units (unkno wn) date) unknown) (unknown) (no (unknown) (unknown) representing a (units ( unknown) date) hemangioma. unknown) Patient is afebrile, blood pressure is 122/75, heart (unknown) (no (unknown) (unknown) sharp shooting (units (unknown) date) pains in the unknown) meantime. She has a history of an appendectomy in (unknown) (no (unknown) (unknown) shellfish derived (units (unknown) date) Allergy unknown) Anaphylaxis Verified 11/15/21 14:12 (unknown) (no (unknown) (unknown) tablet (units (unkno wn) date) unknown) (unknown) (no (unknown) (unknown) the abdomen and (units (unknown) date) pelvis did unknown) indicate findings of fluid distention throughout the (unknown) (no (unknown) (unknown) today; this time (units (unknown) date) is exclusive of unknown) procedural time. (unknown) (no (unknown) (unknown) venlafaxine 150 (units (unknown) date) mg 150 mg PO DAILY unknown) 01/15/22 01/15/22 History Result panel 23 (unknown) (no (unknown) (unknown) (no value) (units (unk nown) date) unknown) (unknown) (no (unknown) (unknown) (no value) (units (unk nown) date) unknown) (unknown) (no (unknown) (unknown) Date of Service: (units (unknown) date) 01/15/22 unknown) (unknown) (no (unknown) (unknown) (no value) (units (unk nown) date) unknown) (unknown) (no (unknown) (unknown) - (units (unkno wn) date) unknown) (unknown) (no (unknown) (unknown) 01/15/22 05:41 (units (unknown) date) unknown) (unknown) (no (unknown) (unknown) Allergies (units (unkn own) date) unknown) (unknown) (no (unknown) (unknown) History + (units (unkn own) date) Physical Report unknown) (unknown) (no (unknown) (unknown) Home Medications (units (unknown) date) unknown) (unknown) (no (unknown) (unknown) [facility] (units (unknown) date) [address] unknown) [place] [id number] (unknown) (no (unknown) (unknown) Laboratory (units (unk nown) date) Results - last 24 unknown) hr (unknown) (no (unknown) (unknown) (no value) (units (unk nown) date) unknown) (unknown) (no (unknown) (unknown) 01/14/22 01/14/22 (units (unknown) date) 01/14/22 unknown) (unknown) (no (unknown) (unknown) 01/15/22 (units (unkno wn) date) unknown) (unknown) (no (unknown) (unknown) 18:35 18:35 18:35 (units (unknown) date) unknown) (unknown) (no (unknown) (unknown) 23:52 (units (unkno wn) date) unknown) (unknown) (no (unknown) (unknown) 01/14/22 (units (unkno wn) date) unknown) (unknown) (no (unknown) (unknown) 01/15/22 (units (unkno wn) date) unknown) (unknown) (no (unknown) (unknown) Medication (units (unk nown) date) Instructions unknown) Recorded Confirmed Type (unknown) (no (unknown) (unknown) surrogate and (units ( unknown) date) POA. unknown) (unknown) (no (unknown) (unknown) (past 8 hours): (units (unknown) date) unknown) (unknown) (no (unknown) (unknown) * General surgery (units (unknown) date) has been consulted unknown) (unknown) (no (unknown) (unknown) * IVF with normal (units (unknown) date) saline unknown) (unknown) (no (unknown) (unknown) * Pain control (units (unknown) date) unknown) (unknown) (no (unknown) (unknown) * Protonix 40 mg (units (unknown) date) IV daily unknown) (unknown) (no (unknown) (unknown) * She is NPO (units (u nknown) date) unknown) (unknown) (no (unknown) (unknown) 00:00 (units (unkno wn) date) unknown) (unknown) (no (unknown) (unknown) 00:30 01/15/22 (units (unknown) date) unknown) (unknown) (no (unknown) (unknown) 01:15 01/15/22 (units (unknown) date) unknown) (unknown) (no (unknown) (unknown) 01:16 (units (unkno wn) date) unknown) (unknown) (no (unknown) (unknown) 01:30 01/15/22 (units (unknown) date) unknown) (unknown) (no (unknown) (unknown) 01:40 01/15/22 (units (unknown) date) unknown) (unknown) (no (unknown) (unknown) 02:54 (units (unkno wn) date) unknown) (unknown) (no (unknown) (unknown) [id number] (units (unkno wn) date) unknown) (unknown) (no (unknown) (unknown) 1. Suspected (units (u nknown) date) bowel obstruction unknown) vs ileus, acute and present on admission (unknown) (no (unknown) (unknown) 2020. She denies (units (unknown) date) fevers sweats, unknown) denies shortness of breath, chest pain, dysuria (unknown) (no (unknown) (unknown) 20:30 01/14/22 (units (unknown) date) unknown) (unknown) (no (unknown) (unknown) 20:32 01/14/22 (units (unknown) date) unknown) (unknown) (no (unknown) (unknown) 21:00 (units (unkno wn) date) unknown) (unknown) (no (unknown) (unknown) 21:30 01/14/22 (units (unknown) date) unknown) (unknown) (no (unknown) (unknown) 22:00 01/14/22 (units (unknown) date) unknown) (unknown) (no (unknown) (unknown) 22:30 (units (unkno wn) date) unknown) (unknown) (no (unknown) (unknown) 23:00 01/14/22 (units (unknown) date) unknown) (unknown) (no (unknown) (unknown) 23:30 01/15/22 (units (unknown) date) unknown) (unknown) (no (unknown) (unknown) ALT (units (unkno wn) date) unknown) (unknown) (no (unknown) (unknown) ALT 18 (units (unkno wn) date) unknown) (unknown) (no (unknown) (unknown) AST (units (unkno wn) date) unknown) (unknown) (no (unknown) (unknown) AST 24 (units (unkno wn) date) unknown) (unknown) (no (unknown) (unknown) Abd: soft, (units (unk nown) date) non-distended, unknown) generalized tenderness, hypoactive BTs (unknown) (no (unknown) (unknown) Age/Sex: 26 / F (units (unknown) date) unknown) (unknown) (no (unknown) (unknown) Albumin (units (unkno wn) date) unknown) (unknown) (no (unknown) (unknown) Albumin 4.6 (units ( unknown) date) unknown) (unknown) (no (unknown) (unknown) Albumin/Globulin (units (unknown) date) Ratio unknown) (unknown) (no (unknown) (unknown) Albumin/Globulin (units (unknown) date) Ratio 1.3 unknown) (unknown) (no (unknown) (unknown) Alkaline (units (unkno wn) date) Phosphatase unknown) (unknown) (no (unknown) (unknown) Alkaline (units (unkno wn) date) Phosphatase 127 unknown) H (unknown) (no (unknown) (unknown) Allergy/AdvReac (units (unknown) date) Type Severity unknown) Reaction Status Date / Time (unknown) (no (unknown) (unknown) Antibody Screen (units (unknown) date) Negative unknown) (unknown) (no (unknown) (unknown) Antibody Screen (units (unknown) date) unknown) (unknown) (no (unknown) (unknown) Anxiety (units (unkno wn) date) unknown) (unknown) (no (unknown) (unknown) Assessment + Plan (units (unknown) date) unknown) (unknown) (no (unknown) (unknown) Assessment + Plan (units (unknown) date) narrative: unknown) (unknown) (no (unknown) (unknown) BUN (units (unkno wn) date) unknown) (unknown) (no (unknown) (unknown) BUN 10 (units (unkno wn) date) unknown) (unknown) (no (unknown) (unknown) BUN/Creatinine (units (unknown) date) Ratio unknown) (unknown) (no (unknown) (unknown) BUN/Creatinine (units (unknown) date) Ratio 16.1 unknown) (unknown) (no (unknown) (unknown) Baso # (Auto) (units ( unknown) date) unknown) (unknown) (no (unknown) (unknown) Baso # (Auto) 0 (units (unknown) date) unknown) (unknown) (no (unknown) (unknown) Baso % (Auto) (units ( unknown) date) unknown) (unknown) (no (unknown) (unknown) Baso % (Auto) (units ( unknown) date) 0.3 unknown) (unknown) (no (unknown) (unknown) Been Physically (units (unknown) date) Hurt or No unknown) (unknown) (no (unknown) (unknown) Blood Pressure (units (unknown) date) unknown) (unknown) (no (unknown) (unknown) Blood Pressure (units (unknown) date) 126/65 unknown) (unknown) (no (unknown) (unknown) Blood Pressure (units (unknown) date) 137/82 unknown) (unknown) (no (unknown) (unknown) Blood Pressure (units (unknown) date) 120/77 120/77 unknown) 119/78 (unknown) (no (unknown) (unknown) Blood Type O (units (unknown) date) Positive unknown) (unknown) (no (unknown) (unknown) Blood Type (units (unk nown) date) unknown) (unknown) (no (unknown) (unknown) CV: RRR, no (units (un known) date) murmur or rubs unknown) (unknown) (no (unknown) (unknown) Calcium (units (unkno wn) date) unknown) (unknown) (no (unknown) (unknown) Calcium 9.4 (units ( unknown) date) unknown) (unknown) (no (unknown) (unknown) Carbon Dioxide (units (unknown) date) unknown) (unknown) (no (unknown) (unknown) Carbon Dioxide (units (unknown) date) 20 L unknown) (unknown) (no (unknown) (unknown) Chief complaint: (units (unknown) date) Lower abdominal unknown) pain, hematemasis melana (unknown) (no (unknown) (unknown) Chloride (units (unkno wn) date) unknown) (unknown) (no (unknown) (unknown) Chloride 106 (units (unknown) date) unknown) (unknown) (no (unknown) (unknown) Code status: [] as (units (unknown) date) discussed with the unknown) patient who identifies [] as [] his [] her (unknown) (no (unknown) (unknown) Consultants [] (units (unknown) date) None [] care and unknown) involvement in the patient?s care is (unknown) (no (unknown) (unknown) Creatinine (units (unk nown) date) unknown) (unknown) (no (unknown) (unknown) Creatinine 0.62 (units (unknown) date) unknown) (unknown) (no (unknown) (unknown) Critical Care (units ( unknown) date) time: unknown) (unknown) (no (unknown) (unknown) : 1995 (units (unknown) date) Acct:[id number] unknown) (unknown) (no (unknown) (unknown) Date Patient (units (u nknown) date) Seen: 01/15/22 unknown) (unknown) (no (unknown) (unknown) Dispo: [] (units (unkn own) date) unknown) (unknown) (no (unknown) (unknown) Environment (units (un known) date) unknown) (unknown) (no (unknown) (unknown) Eos # (Auto) (units (u nknown) date) unknown) (unknown) (no (unknown) (unknown) Eos # (Auto) 0 (units (unknown) date) unknown) (unknown) (no (unknown) (unknown) Eos % (Auto) (units (u nknown) date) unknown) (unknown) (no (unknown) (unknown) Eos % (Auto) 0.2 (units (unknown) date) L unknown) (unknown) (no (unknown) (unknown) Estimated GFR (units ( unknown) date) unknown) (unknown) (no (unknown) (unknown) Estimated GFR > (units (unknown) date) 60 unknown) (unknown) (no (unknown) (unknown) Exam (units (unkno wn) date) unknown) (unknown) (no (unknown) (unknown) Exam Narrative: (units (unknown) date) unknown) (unknown) (no (unknown) (unknown) Exercise-induced (units (unknown) date) asthma unknown) (unknown) (no (unknown) (unknown) Extremities: (units (u nknown) date) moves all 4 unknown) extremities, is ambulatory, negative Adithya?s sign (unknown) (no (unknown) (unknown) FEN: IV fluids: (units (unknown) date) NS , diet: [], unknown) labs: CBC, C/BMP, liver enzymes, Mag, PT/INR (unknown) (no (unknown) (unknown) Family + Social (units (unknown) date) History unknown) (unknown) (no (unknown) (unknown) Family History (units (unknown) date) (Updated 01/15/22 unknown) @ 06:47 by AI Flores) (unknown) (no (unknown) (unknown) Feels Safe in (units ( unknown) date) Current Yes unknown) (unknown) (no (unknown) (unknown) Gen: Alert, (units (un known) date) oriented, well unknown) nourished 26 y.o. female, in mild distress (unknown) (no (unknown) (unknown) Globulin (units (unkno wn) date) unknown) (unknown) (no (unknown) (unknown) Globulin 3.5 (units (unknown) date) unknown) (unknown) (no (unknown) (unknown) Glucose (units (unkno wn) date) unknown) (unknown) (no (unknown) (unknown) Glucose 93 (units (u nknown) date) unknown) (unknown) (no (unknown) (unknown) HEENT: (units (unkno wn) date) normocephalic, unknown) atraumatic, conjunctiva clear, sclera non-icteric, oral (unknown) (no (unknown) (unknown) Hct (units (unkno wn) date) unknown) (unknown) (no (unknown) (unknown) Hct 43.1 (units (unkn own) date) unknown) (unknown) (no (unknown) (unknown) Hgb (units (unkno wn) date) unknown) (unknown) (no (unknown) (unknown) Hgb 15.2 (units (unkn own) date) unknown) (unknown) (no (unknown) (unknown) History of (units (unk nown) date) Present Illness unknown) (unknown) (no (unknown) (unknown) Home Medications (units (unknown) date) and Allergies unknown) (unknown) (no (unknown) (unknown) I spent a total (units (unknown) date) of [] minutes of unknown) critical care time on this patient's care (unknown) (no (unknown) (unknown) Chelsea Stepan is (units (unknown) date) a 26-year-old unknown) female with a past history of a lower GI bleed, (unknown) (no (unknown) (unknown) Chelsea Lebron is (units (unknown) date) placed into unknown) observation for further evaluation of abdominal (unknown) (no (unknown) (unknown) Labs (units (unkno wn) date) unknown) (unknown) (no (unknown) (unknown) Labs: (units (unkno wn) date) unknown) (unknown) (no (unknown) (unknown) Lipase (units (unkno wn) date) unknown) (unknown) (no (unknown) (unknown) Lipase 42 (units (un known) date) unknown) (unknown) (no (unknown) (unknown) Lupus (units (unkno wn) date) unknown) (unknown) (no (unknown) (unknown) Lymph # (Auto) (units (unknown) date) unknown) (unknown) (no (unknown) (unknown) Lymph # (Auto) (units (unknown) date) 2400 unknown) (unknown) (no (unknown) (unknown) Lymph % (Auto) (units (unknown) date) unknown) (unknown) (no (unknown) (unknown) Lymph % (Auto) (units (unknown) date) 18.1 L unknown) (unknown) (no (unknown) (unknown) MCH (units (unkno wn) date) unknown) (unknown) (no (unknown) (unknown) MCH 32.1 (units (unkn own) date) unknown) (unknown) (no (unknown) (unknown) MCHC (units (unkno wn) date) unknown) (unknown) (no (unknown) (unknown) MCHC 35.1 (units (unk nown) date) unknown) (unknown) (no (unknown) (unknown) MCV (units (unkno wn) date) unknown) (unknown) (no (unknown) (unknown) MCV 91.4 (units (unkn own) date) unknown) (unknown) (no (unknown) (unknown) Medical History (units (unknown) date) (Reviewed 01/15/22 unknown) @ 06:46 by AI Flores) (unknown) (no (unknown) (unknown) Meds (units (unkno wn) date) unknown) (unknown) (no (unknown) (unknown) Reagan # (Auto) (units ( unknown) date) unknown) (unknown) (no (unknown) (unknown) Reagan # (Auto) (units ( unknown) date) 400 unknown) (unknown) (no (unknown) (unknown) Reagan % (Auto) (units ( unknown) date) unknown) (unknown) (no (unknown) (unknown) Reagan % (Auto) (units ( unknown) date) 3.2 unknown) (unknown) (no (unknown) (unknown) Mother Bowel (units (unknown) date) obstruction unknown) (unknown) (no (unknown) (unknown) Narrative (units (unkn own) date) unknown) (unknown) (no (unknown) (unknown) Narrative: (units (unk nown) date) unknown) (unknown) (no (unknown) (unknown) Neck: supple, (units ( unknown) date) full ROM, no JVD, unknown) trachea is midline (unknown) (no (unknown) (unknown) Neuro: Alert and (units (unknown) date) oriented X 4 w/no unknown) focal deficits. Speech clear and coherent. (unknown) (no (unknown) (unknown) Neut # (Auto) (units ( unknown) date) unknown) (unknown) (no (unknown) (unknown) Neut # (Auto) (units ( unknown) date) 35315 H unknown) (unknown) (no (unknown) (unknown) Neut % (Auto) (units ( unknown) date) unknown) (unknown) (no (unknown) (unknown) Neut % (Auto) (units ( unknown) date) 78.2 H unknown) (unknown) (no (unknown) (unknown) Objective (units (unkn own) date) unknown) (unknown) (no (unknown) (unknown) Oxygen Delivery (units (unknown) date) Method Room Air unknown) (unknown) (no (unknown) (unknown) Oxygen Flow Rate (units (unknown) date) 0 unknown) (unknown) (no (unknown) (unknown) Patient History (units (unknown) date) unknown) (unknown) (no (unknown) (unknown) Patient is placed (units (unknown) date) into observation unknown) as her stay is not expected to exceed 2 (unknown) (no (unknown) (unknown) Patient: (units (unkno wn) date) Chelsea Lebron unknown) MR#: [id number] (unknown) (no (unknown) (unknown) Penicillins (units (un known) date) [PENICILLINS] unknown) Allergy Unknown Verified 11/15/21 14:12 (unknown) (no (unknown) (unknown) Plt Count (units (unkn own) date) unknown) (unknown) (no (unknown) (unknown) Plt Count 367 (units (unknown) date) unknown) (unknown) (no (unknown) (unknown) Potassium (units (unkn own) date) unknown) (unknown) (no (unknown) (unknown) Potassium 3.7 (units (unknown) date) unknown) (unknown) (no (unknown) (unknown) Provider: (units (unkn own) date) Radha House unknown) (unknown) (no (unknown) (unknown) Psyche: normal (units (unknown) date) mood and affect. unknown) (unknown) (no (unknown) (unknown) Pulse Oximetry (units (unknown) date) 100 100 99 unknown) (unknown) (no (unknown) (unknown) Pulse Oximetry 96 (units (unknown) date) 98 97 unknown) (unknown) (no (unknown) (unknown) Pulse Oximetry 97 (units (unknown) date) 98 98 unknown) (unknown) (no (unknown) (unknown) Pulse Oximetry 99 (units (unknown) date) 99 unknown) (unknown) (no (unknown) (unknown) Pulse Oximetry 99 (units (unknown) date) 97 98 unknown) (unknown) (no (unknown) (unknown) Pulse Rate 106 H (units (unknown) date) 120 H 121 H unknown) (unknown) (no (unknown) (unknown) Pulse Rate 116 H (units (unknown) date) 116 H unknown) (unknown) (no (unknown) (unknown) Pulse Rate 117 H (units (unknown) date) 117 H unknown) (unknown) (no (unknown) (unknown) Pulse Rate 122 H (units (unknown) date) 123 H 135 H unknown) (unknown) (no (unknown) (unknown) Pulse Rate 124 H (units (unknown) date) 126 H 124 H unknown) (unknown) (no (unknown) (unknown) RBC (units (unkno wn) date) unknown) (unknown) (no (unknown) (unknown) RBC 4.72 (units (unkn own) date) unknown) (unknown) (no (unknown) (unknown) RDW (units (unkno wn) date) unknown) (unknown) (no (unknown) (unknown) RDW 12.5 (units (unkn own) date) unknown) (unknown) (no (unknown) (unknown) ROS: Yes All (units (u nknown) date) systems reviewed unknown) with the patient and are negative except as (unknown) (no (unknown) (unknown) Resp: Lungs CTA, (units (unknown) date) non-labored unknown) breathing (unknown) (no (unknown) (unknown) Respiratory Rate (units (unknown) date) unknown) (unknown) (no (unknown) (unknown) Respiratory Rate (units (unknown) date) 17 unknown) (unknown) (no (unknown) (unknown) Result Diagrams: (units (unknown) date) unknown) (unknown) (no (unknown) (unknown) Review of Systems (units (unknown) date) unknown) (unknown) (no (unknown) (unknown) SARS-CoV-2 (PCR) (units (unknown) date) unknown) (unknown) (no (unknown) (unknown) SARS-CoV-2 (PCR) (units (unknown) date) Negative unknown) (unknown) (no (unknown) (unknown) Safety + (units (unkno wn) date) Behavioral: unknown) (unknown) (no (unknown) (unknown) Signed By: (units (unk nown) date) unknown) (unknown) (no (unknown) (unknown) Sister Bowel (units (unknown) date) obstruction unknown) (unknown) (no (unknown) (unknown) Skin: extensive (units (unknown) date) tatoos on both unknown) arms, no lesions or rashes, dry and intact (unknown) (no (unknown) (unknown) Smoking Status (units (unknown) date) Never smoker unknown) (unknown) (no (unknown) (unknown) Sodium (units (unkno wn) date) unknown) (unknown) (no (unknown) (unknown) Sodium 137 (units (u nknown) date) unknown) (unknown) (no (unknown) (unknown) Substance Use (units ( unknown) date) Type marijuana unknown) (unknown) (no (unknown) (unknown) Temperature (units (un known) date) unknown) (unknown) (no (unknown) (unknown) Temperature 98.1 (units (unknown) date) F unknown) (unknown) (no (unknown) (unknown) Threatened By a (units (unknown) date) Person unknown) (unknown) (no (unknown) (unknown) Time Patient (units (u nknown) date) Seen: 03:00 unknown) (unknown) (no (unknown) (unknown) Time Spent With (units (unknown) date) Patient unknown) (unknown) (no (unknown) (unknown) Tobacco + (units (unkn own) date) Substance use: unknown) (unknown) (no (unknown) (unknown) Total Bilirubin (units (unknown) date) unknown) (unknown) (no (unknown) (unknown) Total Bilirubin (units (unknown) date) 0.5 unknown) (unknown) (no (unknown) (unknown) Total Protein (units ( unknown) date) unknown) (unknown) (no (unknown) (unknown) Total Protein (units ( unknown) date) 8.1 unknown) (unknown) (no (unknown) (unknown) VTE Prophylaxis: (units (unknown) date) Wells risk score 0 unknown) [X] Bilateral SCDs (unknown) (no (unknown) (unknown) Vital Signs (units (un known) date) unknown) (unknown) (no (unknown) (unknown) WBC (units (unkno wn) date) unknown) (unknown) (no (unknown) (unknown) WBC 13.4 H (units (un known) date) unknown) (unknown) (no (unknown) (unknown) X-ray acute (units (un known) date) abdomen series was unknown) negative, pelvis ultrasound was negative, CT of (unknown) (no (unknown) (unknown) [Embedded Image (units (unknown) date) Not Available] unknown) (unknown) (no (unknown) (unknown) [X] I have (units (unk nown) date) utilized all unknown) available immediate resources to obtain, update, or (unknown) (no (unknown) (unknown) abdominal pain (units (unknown) date) and was seen in unknown) the emergency department on January 09 and (unknown) (no (unknown) (unknown) aerosol inhaler (units (unknown) date) gram unknown) (unknown) (no (unknown) (unknown) albuterol sulfate (units (unknown) date) 90 mcg/actuation 2 unknown) puff INHALATION Q4-6H PRN #18 06/05/19 Rx (unknown) (no (unknown) (unknown) alcohol intake (units (unknown) date) frequency unknown) holiday/special occasion (unknown) (no (unknown) (unknown) appreciated. (units (u nknown) date) unknown) (unknown) (no (unknown) (unknown) as melena. They (units (unknown) date) sent her home with unknown) Mag citrate which she produced of quite a (unknown) (no (unknown) (unknown) associated mild (units (unknown) date) short-segment unknown) dilatation of the distal ileum likely secondary to (unknown) (no (unknown) (unknown) biopsies were (units ( unknown) date) negative. She unknown) states that her pain is very consistent but has (unknown) (no (unknown) (unknown) bit of stool and (units (unknown) date) has been having unknown) diarrhea ever since. She went her to her PCP (unknown) (no (unknown) (unknown) capsule,extended (units (unknown) date) release 24 hr unknown) (unknown) (no (unknown) (unknown) colon with (units (unk nown) date) air-fluid levels unknown) representing gastroenteritis or ileus, it noted (unknown) (no (unknown) (unknown) colonic (units (unkno wn) date) distension, she unknown) has a hypervascular lesion in the right hepatic lobe (unknown) (no (unknown) (unknown) colonoscopy and (units (unknown) date) endoscopy and it unknown) was found to have an inflamed colon but the (unknown) (no (unknown) (unknown) cyclobenzaprine (units (unknown) date) 10 mg tablet 10 mg unknown) PO TID PRN #12 tab 10/18/19 Rx (unknown) (no (unknown) (unknown) diagnosed with (units (unknown) date) obstipation. At unknown) that time she complained of hematemesis as well (unknown) (no (unknown) (unknown) doxycycline (units (un known) date) [DOXYCYCLINE] unknown) Allergy Unknown Verified 11/15/21 14:12 (unknown) (no (unknown) (unknown) famotidine 40 mg (units (unknown) date) tablet 40 mg PO unknown) DAILY #7 tab 05/14/21 Rx (unknown) (no (unknown) (unknown) for follow-up and (units (unknown) date) was found to still unknown) be constipated. In November she underwent (unknown) (no (unknown) (unknown) hydrocodone (units (un known) date) [HYDROCODONE] unknown) Allergy Unknown Verified 11/15/21 14:12 (unknown) (no (unknown) (unknown) kg with a BMI of (units (unknown) date) 29.3 unknown) (unknown) (no (unknown) (unknown) lidocaine Allergy (units (unknown) date) Verified unknown) 11/15/21 14:12 (unknown) (no (unknown) (unknown) lupus, colon (units (u nknown) date) polyps, and unknown) abdominal pain has had a several day history of severe (unknown) (no (unknown) (unknown) midnights. (units (unk nown) date) unknown) (unknown) (no (unknown) (unknown) mucosa pink and (units (unknown) date) moist unknown) (unknown) (no (unknown) (unknown) ondansetron 4 mg (units (unknown) date) disintegrating 4 unknown) mg PO 01/15/22 History (unknown) (no (unknown) (unknown) or changes in (units ( unknown) date) bowel or bladder unknown) control. (unknown) (no (unknown) (unknown) otherwise (units (unkn own) date) documented unknown) (unknown) (no (unknown) (unknown) pain and further (units (unknown) date) delineation of a unknown) potential small bowel obstruction. (unknown) (no (unknown) (unknown) pantoprazole 40 (units (unknown) date) mg tablet,delayed unknown) 40 mg PO DAILY 01/15/22 01/15/22 History (unknown) (no (unknown) (unknown) rate 106, (units (unkn own) date) respiratory rate unknown) 16, oxygen saturation 98% on room air she weighs 75 (unknown) (no (unknown) (unknown) release (units (unkno wn) date) unknown) (unknown) (no (unknown) (unknown) representing a (units ( unknown) date) hemangioma. unknown) Patient is afebrile, blood pressure is 122/75, heart (unknown) (no (unknown) (unknown) review of the (units ( unknown) date) patient's current unknown) medications (unknown) (no (unknown) (unknown) sharp shooting (units (unknown) date) pains in the unknown) meantime. She has a history of an appendectomy in (unknown) (no (unknown) (unknown) shellfish derived (units (unknown) date) Allergy unknown) Anaphylaxis Verified 11/15/21 14:12 (unknown) (no (unknown) (unknown) tablet (units (unkno wn) date) unknown) (unknown) (no (unknown) (unknown) the abdomen and (units (unknown) date) pelvis did unknown) indicate findings of fluid distention throughout the (unknown) (no (unknown) (unknown) today; this time (units (unknown) date) is exclusive of unknown) procedural time. (unknown) (no (unknown) (unknown) venlafaxine 150 (units (unknown) date) mg 150 mg PO DAILY unknown) 01/15/22 01/15/22 History Result panel 24 (unknown) (no (unknown) (unknown) (no value) (units (unk nown) date) unknown) (unknown) (no (unknown) (unknown) (no value) (units (unk nown) date) unknown) (unknown) (no (unknown) (unknown) Date of Service: (units (unknown) date) 01/15/22 unknown) (unknown) (no (unknown) (unknown) (no value) (units (unk nown) date) unknown) (unknown) (no (unknown) (unknown) - (units (unkno wn) date) unknown) (unknown) (no (unknown) (unknown) 01/15/22 05:41 (units (unknown) date) unknown) (unknown) (no (unknown) (unknown) Allergies (units (unkn own) date) unknown) (unknown) (no (unknown) (unknown) History + (units (unkn own) date) Physical Report unknown) (unknown) (no (unknown) (unknown) Home Medications (units (unknown) date) unknown) (unknown) (no (unknown) (unknown) [facility] (units (unknown) date) [address] unknown) [place] [id number] (unknown) (no (unknown) (unknown) Laboratory (units (unk nown) date) Results - last 24 unknown) hr (unknown) (no (unknown) (unknown) (no value) (units (unk nown) date) unknown) (unknown) (no (unknown) (unknown) 01/14/22 01/14/22 (units (unknown) date) 01/14/22 unknown) (unknown) (no (unknown) (unknown) 01/15/22 (units (unkno wn) date) unknown) (unknown) (no (unknown) (unknown) 18:35 18:35 18:35 (units (unknown) date) unknown) (unknown) (no (unknown) (unknown) 23:52 (units (unkno wn) date) unknown) (unknown) (no (unknown) (unknown) 01/14/22 (units (unkno wn) date) unknown) (unknown) (no (unknown) (unknown) 01/15/22 (units (unkno wn) date) unknown) (unknown) (no (unknown) (unknown) Medication (units (unk nown) date) Instructions unknown) Recorded Confirmed Type (unknown) (no (unknown) (unknown) Surrogate (units (unkn own) date) decision maker is unknown) in patient?s record [If Yes, STOP here]: Yes (unknown) (no (unknown) (unknown) (past 8 hours): (units (unknown) date) unknown) (unknown) (no (unknown) (unknown) * General surgery (units (unknown) date) has been consulted unknown) (unknown) (no (unknown) (unknown) * IVF with normal (units (unknown) date) saline unknown) (unknown) (no (unknown) (unknown) * Pain control (units (unknown) date) unknown) (unknown) (no (unknown) (unknown) * Protonix 40 mg (units (unknown) date) IV daily unknown) (unknown) (no (unknown) (unknown) * She is NPO (units (u nknown) date) unknown) (unknown) (no (unknown) (unknown) 00:00 (units (unkno wn) date) unknown) (unknown) (no (unknown) (unknown) 00:30 01/15/22 (units (unknown) date) unknown) (unknown) (no (unknown) (unknown) 01:15 01/15/22 (units (unknown) date) unknown) (unknown) (no (unknown) (unknown) 01:16 (units (unkno wn) date) unknown) (unknown) (no (unknown) (unknown) 01:30 01/15/22 (units (unknown) date) unknown) (unknown) (no (unknown) (unknown) 01:40 01/15/22 (units (unknown) date) unknown) (unknown) (no (unknown) (unknown) 02:54 (units (unkno wn) date) unknown) (unknown) (no (unknown) (unknown) [id number] (units (unkno wn) date) unknown) (unknown) (no (unknown) (unknown) 1. Suspected (units (u nknown) date) bowel obstruction unknown) vs ileus, acute and present on admission (unknown) (no (unknown) (unknown) 2020. She denies (units (unknown) date) fevers sweats, unknown) denies shortness of breath, chest pain, dysuria (unknown) (no (unknown) (unknown) 20:30 01/14/22 (units (unknown) date) unknown) (unknown) (no (unknown) (unknown) 20:32 01/14/22 (units (unknown) date) unknown) (unknown) (no (unknown) (unknown) 21:00 (units (unkno wn) date) unknown) (unknown) (no (unknown) (unknown) 21:30 01/14/22 (units (unknown) date) unknown) (unknown) (no (unknown) (unknown) 22:00 01/14/22 (units (unknown) date) unknown) (unknown) (no (unknown) (unknown) 22:30 (units (unkno wn) date) unknown) (unknown) (no (unknown) (unknown) 23:00 01/14/22 (units (unknown) date) unknown) (unknown) (no (unknown) (unknown) 23:30 01/15/22 (units (unknown) date) unknown) (unknown) (no (unknown) (unknown) ALT (units (unkno wn) date) unknown) (unknown) (no (unknown) (unknown) ALT 18 (units (unkno wn) date) unknown) (unknown) (no (unknown) (unknown) AST (units (unkno wn) date) unknown) (unknown) (no (unknown) (unknown) AST 24 (units (unkno wn) date) unknown) (unknown) (no (unknown) (unknown) Abd: soft, (units (unk nown) date) non-distended, unknown) generalized tenderness, hypoactive BTs (unknown) (no (unknown) (unknown) Age/Sex: 26 / F (units (unknown) date) unknown) (unknown) (no (unknown) (unknown) Albumin (units (unkno wn) date) unknown) (unknown) (no (unknown) (unknown) Albumin 4.6 (units ( unknown) date) unknown) (unknown) (no (unknown) (unknown) Albumin/Globulin (units (unknown) date) Ratio unknown) (unknown) (no (unknown) (unknown) Albumin/Globulin (units (unknown) date) Ratio 1.3 unknown) (unknown) (no (unknown) (unknown) Alkaline (units (unkno wn) date) Phosphatase unknown) (unknown) (no (unknown) (unknown) Alkaline (units (o wn) date) Phosphatase 127 unknown) H (unknown) (no (unknown) (unknown) Allergy/AdvReac (units (unknown) date) Type Severity unknown) Reaction Status Date / Time (unknown) (no (unknown) (unknown) Antibody Screen (units (unknown) date) Negative unknown) (unknown) (no (unknown) (unknown) Antibody Screen (units (unknown) date) unknown) (unknown) (no (unknown) (unknown) Anxiety (units (unkno wn) date) unknown) (unknown) (no (unknown) (unknown) Assessment + Plan (units (unknown) date) unknown) (unknown) (no (unknown) (unknown) Assessment + Plan (units (unknown) date) narrative: unknown) (unknown) (no (unknown) (unknown) BUN (units (unkno wn) date) unknown) (unknown) (no (unknown) (unknown) BUN 10 (units (unkno wn) date) unknown) (unknown) (no (unknown) (unknown) BUN/Creatinine (units (unknown) date) Ratio unknown) (unknown) (no (unknown) (unknown) BUN/Creatinine (units (unknown) date) Ratio 16.1 unknown) (unknown) (no (unknown) (unknown) Baso # (Auto) (units ( unknown) date) unknown) (unknown) (no (unknown) (unknown) Baso # (Auto) 0 (units (unknown) date) unknown) (unknown) (no (unknown) (unknown) Baso % (Auto) (units ( unknown) date) unknown) (unknown) (no (unknown) (unknown) Baso % (Auto) (units ( unknown) date) 0.3 unknown) (unknown) (no (unknown) (unknown) Been Physically (units (unknown) date) Hurt or No unknown) (unknown) (no (unknown) (unknown) Blood Pressure (units (unknown) date) unknown) (unknown) (no (unknown) (unknown) Blood Pressure (units (unknown) date) 126/65 unknown) (unknown) (no (unknown) (unknown) Blood Pressure (units (unknown) date) 137/82 unknown) (unknown) (no (unknown) (unknown) Blood Pressure (units (unknown) date) 120/77 120/77 unknown) 119/78 (unknown) (no (unknown) (unknown) Blood Type O (units (unknown) date) Positive unknown) (unknown) (no (unknown) (unknown) Blood Type (units (unk nown) date) unknown) (unknown) (no (unknown) (unknown) CV: RRR, no (units (un known) date) murmur or rubs unknown) (unknown) (no (unknown) (unknown) Calcium (units (unkno wn) date) unknown) (unknown) (no (unknown) (unknown) Calcium 9.4 (units ( unknown) date) unknown) (unknown) (no (unknown) (unknown) Carbon Dioxide (units (unknown) date) unknown) (unknown) (no (unknown) (unknown) Carbon Dioxide (units (unknown) date) 20 L unknown) (unknown) (no (unknown) (unknown) Chief complaint: (units (unknown) date) Lower abdominal unknown) pain, hematemasis melana (unknown) (no (unknown) (unknown) Chloride (units (unkno wn) date) unknown) (unknown) (no (unknown) (unknown) Chloride 106 (units (unknown) date) unknown) (unknown) (no (unknown) (unknown) Code status: Full (units (unknown) date) Code unknown) (unknown) (no (unknown) (unknown) Consultants (units (unknown) date) General Brianna unknown) Surgery care and involvement in the patient?s (unknown) (no (unknown) (unknown) Creatinine (units (unk nown) date) unknown) (unknown) (no (unknown) (unknown) Creatinine 0.62 (units (unknown) date) unknown) (unknown) (no (unknown) (unknown) : 1995 (units (unknown) date) Acct:[id number] unknown) (unknown) (no (unknown) (unknown) Date Patient (units (u nknown) date) Seen: 01/15/22 unknown) (unknown) (no (unknown) (unknown) Deep Vein (units (unkn own) date) Thrombosis/Pulmona unknown) ry Embolism Present on Admission: No (unknown) (no (unknown) (unknown) Dispo: Probable (units (unknown) date) discharge to home unknown) (unknown) (no (unknown) (unknown) Environment (units (un known) date) unknown) (unknown) (no (unknown) (unknown) Eos # (Auto) (units (u nknown) date) unknown) (unknown) (no (unknown) (unknown) Eos # (Auto) 0 (units (unknown) date) unknown) (unknown) (no (unknown) (unknown) Eos % (Auto) (units (u nknown) date) unknown) (unknown) (no (unknown) (unknown) Eos % (Auto) 0.2 (units (unknown) date) L unknown) (unknown) (no (unknown) (unknown) Estimated GFR (units ( unknown) date) unknown) (unknown) (no (unknown) (unknown) Estimated GFR > (units (unknown) date) 60 unknown) (unknown) (no (unknown) (unknown) Exam (units (unkno wn) date) unknown) (unknown) (no (unknown) (unknown) Exam Narrative: (units (unknown) date) unknown) (unknown) (no (unknown) (unknown) Exercise-induced (units (unknown) date) asthma unknown) (unknown) (no (unknown) (unknown) Extremities: (units (u nknown) date) moves all 4 unknown) extremities, is ambulatory, negative Adithya?s sign (unknown) (no (unknown) (unknown) FEN: IV fluids: (units (unknown) date) NS at 100 mL/hour, unknown) diet: NPO, labs: CBC, C/BMP, liver enzymes, (unknown) (no (unknown) (unknown) Family + Social (units (unknown) date) History unknown) (unknown) (no (unknown) (unknown) Family History (units (unknown) date) (Updated 01/15/22 unknown) @ 06:47 by AI Flores) (unknown) (no (unknown) (unknown) Feels Safe in (units ( unknown) date) Current Yes unknown) (unknown) (no (unknown) (unknown) Gen: Alert, (units (un known) date) oriented, well unknown) nourished 26 y.o. female, in mild distress (unknown) (no (unknown) (unknown) Globulin (units (unkno wn) date) unknown) (unknown) (no (unknown) (unknown) Globulin 3.5 (units (unknown) date) unknown) (unknown) (no (unknown) (unknown) Glucose (units (unkno wn) date) unknown) (unknown) (no (unknown) (unknown) Glucose 93 (units (u nknown) date) unknown) (unknown) (no (unknown) (unknown) HEENT: (units (unkno wn) date) normocephalic, unknown) atraumatic, conjunctiva clear, sclera non-icteric, oral (unknown) (no (unknown) (unknown) Hct (units (unkno wn) date) unknown) (unknown) (no (unknown) (unknown) Hct 43.1 (units (unkn own) date) unknown) (unknown) (no (unknown) (unknown) Hgb (units (unkno wn) date) unknown) (unknown) (no (unknown) (unknown) Hgb 15.2 (units (unkn own) date) unknown) (unknown) (no (unknown) (unknown) History of (units (unk nown) date) Present Illness unknown) (unknown) (no (unknown) (unknown) Home Medications (units (unknown) date) and Allergies unknown) (unknown) (no (unknown) (unknown) I confirm the (units (u nknown) date) patient?s Advance unknown) Care Plan is present, Code status is documented, (unknown) (no (unknown) (unknown) Chelsea Lebron is (units (unknown) date) a 26-year-old unknown) female with a past history of a lower GI bleed, (unknown) (no (unknown) (unknown) Chelsea Lebron is (units (unknown) date) placed into unknown) observation for further evaluation of abdominal (unknown) (no (unknown) (unknown) Labs (units (unkno wn) date) unknown) (unknown) (no (unknown) (unknown) Labs: (units (unkno wn) date) unknown) (unknown) (no (unknown) (unknown) Lipase (units (unkno wn) date) unknown) (unknown) (no (unknown) (unknown) Lipase 42 (units (un known) date) unknown) (unknown) (no (unknown) (unknown) Lupus (units (unkno wn) date) unknown) (unknown) (no (unknown) (unknown) Lymph # (Auto) (units (unknown) date) unknown) (unknown) (no (unknown) (unknown) Lymph # (Auto) (units (unknown) date) 2400 unknown) (unknown) (no (unknown) (unknown) Lymph % (Auto) (units (unknown) date) unknown) (unknown) (no (unknown) (unknown) Lymph % (Auto) (units (unknown) date) 18.1 L unknown) (unknown) (no (unknown) (unknown) MCH (units (unkno wn) date) unknown) (unknown) (no (unknown) (unknown) MCH 32.1 (units (unkn own) date) unknown) (unknown) (no (unknown) (unknown) MCHC (units (unkno wn) date) unknown) (unknown) (no (unknown) (unknown) MCHC 35.1 (units (unk nown) date) unknown) (unknown) (no (unknown) (unknown) MCV (units (unkno wn) date) unknown) (unknown) (no (unknown) (unknown) MCV 91.4 (units (unkn own) date) unknown) (unknown) (no (unknown) (unknown) MIPS - Admit (units (u nknown) date) unknown) (unknown) (no (unknown) (unknown) MIPS - DC (units (unkn own) date) unknown) (unknown) (no (unknown) (unknown) Mag (units (unkno wn) date) unknown) (unknown) (no (unknown) (unknown) Medical History (units (unknown) date) (Reviewed 01/15/22 unknown) @ 06:46 by AI Flores) (unknown) (no (unknown) (unknown) Meds (units (unkno wn) date) unknown) (unknown) (no (unknown) (unknown) Reagan # (Auto) (units ( unknown) date) unknown) (unknown) (no (unknown) (unknown) Reagan # (Auto) (units ( unknown) date) 400 unknown) (unknown) (no (unknown) (unknown) Reagan % (Auto) (units ( unknown) date) unknown) (unknown) (no (unknown) (unknown) Reagan % (Auto) (units ( unknown) date) 3.2 unknown) (unknown) (no (unknown) (unknown) Mother Bowel (units (unknown) date) obstruction unknown) (unknown) (no (unknown) (unknown) Narrative (units (unkn own) date) unknown) (unknown) (no (unknown) (unknown) Narrative: (units (unk nown) date) unknown) (unknown) (no (unknown) (unknown) Neck: supple, (units ( unknown) date) full ROM, no JVD, unknown) trachea is midline (unknown) (no (unknown) (unknown) Neuro: Alert and (units (unknown) date) oriented X 4 w/no unknown) focal deficits. Speech clear and coherent. (unknown) (no (unknown) (unknown) Neut # (Auto) (units ( unknown) date) unknown) (unknown) (no (unknown) (unknown) Neut # (Auto) (units ( unknown) date) 60438 H unknown) (unknown) (no (unknown) (unknown) Neut % (Auto) (units ( unknown) date) unknown) (unknown) (no (unknown) (unknown) Neut % (Auto) (units ( unknown) date) 78.2 H unknown) (unknown) (no (unknown) (unknown) Objective (units (unkn own) date) unknown) (unknown) (no (unknown) (unknown) Oxygen Delivery (units (unknown) date) Method Room Air unknown) (unknown) (no (unknown) (unknown) Oxygen Flow Rate (units (unknown) date) 0 unknown) (unknown) (no (unknown) (unknown) Patient History (units (unknown) date) unknown) (unknown) (no (unknown) (unknown) Patient is placed (units (unknown) date) into observation unknown) as her stay is not expected to exceed 2 (unknown) (no (unknown) (unknown) Patient: (units (unkno wn) date) Chelsea Lebron unknown) MR#: [id number] (unknown) (no (unknown) (unknown) Penicillins (units (un known) date) [PENICILLINS] unknown) Allergy Unknown Verified 11/15/21 14:12 (unknown) (no (unknown) (unknown) Plt Count (units (unkn own) date) unknown) (unknown) (no (unknown) (unknown) Plt Count 367 (units (unknown) date) unknown) (unknown) (no (unknown) (unknown) Potassium (units (unkn own) date) unknown) (unknown) (no (unknown) (unknown) Potassium 3.7 (units (unknown) date) unknown) (unknown) (no (unknown) (unknown) Provider: (units (unkn own) date) Radha House unknown) (unknown) (no (unknown) (unknown) Psyche: normal (units (unknown) date) mood and affect. unknown) (unknown) (no (unknown) (unknown) Pulse Oximetry (units (unknown) date) 100 100 99 unknown) (unknown) (no (unknown) (unknown) Pulse Oximetry 96 (units (unknown) date) 98 97 unknown) (unknown) (no (unknown) (unknown) Pulse Oximetry 97 (units (unknown) date) 98 98 unknown) (unknown) (no (unknown) (unknown) Pulse Oximetry 99 (units (unknown) date) 99 unknown) (unknown) (no (unknown) (unknown) Pulse Oximetry 99 (units (unknown) date) 97 98 unknown) (unknown) (no (unknown) (unknown) Pulse Rate 106 H (units (unknown) date) 120 H 121 H unknown) (unknown) (no (unknown) (unknown) Pulse Rate 116 H (units (unknown) date) 116 H unknown) (unknown) (no (unknown) (unknown) Pulse Rate 117 H (units (unknown) date) 117 H unknown) (unknown) (no (unknown) (unknown) Pulse Rate 122 H (units (unknown) date) 123 H 135 H unknown) (unknown) (no (unknown) (unknown) Pulse Rate 124 H (units (unknown) date) 126 H 124 H unknown) (unknown) (no (unknown) (unknown) Quality (units (unkno wn) date) unknown) (unknown) (no (unknown) (unknown) RBC (units (unkno wn) date) unknown) (unknown) (no (unknown) (unknown) RBC 4.72 (units (unkn own) date) unknown) (unknown) (no (unknown) (unknown) RDW (units (unkno wn) date) unknown) (unknown) (no (unknown) (unknown) RDW 12.5 (units (unkn own) date) unknown) (unknown) (no (unknown) (unknown) ROS: Yes All (units (u nknown) date) systems reviewed unknown) with the patient and are negative except as (unknown) (no (unknown) (unknown) Resp: Lungs CTA, (units (unknown) date) non-labored unknown) breathing (unknown) (no (unknown) (unknown) Respiratory Rate (units (unknown) date) unknown) (unknown) (no (unknown) (unknown) Respiratory Rate (units (unknown) date) 17 unknown) (unknown) (no (unknown) (unknown) Result Diagrams: (units (unknown) date) unknown) (unknown) (no (unknown) (unknown) Review of Systems (units (unknown) date) unknown) (unknown) (no (unknown) (unknown) SARS-CoV-2 (PCR) (units (unknown) date) unknown) (unknown) (no (unknown) (unknown) SARS-CoV-2 (PCR) (units (unknown) date) Negative unknown) (unknown) (no (unknown) (unknown) Safety + (units (unkno wn) date) Behavioral: unknown) (unknown) (no (unknown) (unknown) Signed (units (unkno wn) date) By:<Electronically unknown) signed by Radha House>01/15/22 0706 (unknown) (no (unknown) (unknown) Sister Bowel (units (unknown) date) obstruction unknown) (unknown) (no (unknown) (unknown) Skin: extensive (units (unknown) date) tatoos on both unknown) arms, no lesions or rashes, dry and intact (unknown) (no (unknown) (unknown) Smoking Status (units (unknown) date) Never smoker unknown) (unknown) (no (unknown) (unknown) Sodium (units (unkno wn) date) unknown) (unknown) (no (unknown) (unknown) Sodium 137 (units (u nknown) date) unknown) (unknown) (no (unknown) (unknown) Substance Use (units ( unknown) date) Type marijuana unknown) (unknown) (no (unknown) (unknown) Temperature (units (un known) date) unknown) (unknown) (no (unknown) (unknown) Temperature 98.1 (units (unknown) date) F unknown) (unknown) (no (unknown) (unknown) The patient has (units (unknown) date) current or prior unknown) documentation of left ventricular ejection (unknown) (no (unknown) (unknown) Threatened By a (units (unknown) date) Person unknown) (unknown) (no (unknown) (unknown) Time Patient (units (u nknown) date) Seen: 03:00 unknown) (unknown) (no (unknown) (unknown) Tobacco + (units (unkn own) date) Substance use: unknown) (unknown) (no (unknown) (unknown) Total Bilirubin (units (unknown) date) unknown) (unknown) (no (unknown) (unknown) Total Bilirubin (units (unknown) date) 0.5 unknown) (unknown) (no (unknown) (unknown) Total Protein (units ( unknown) date) unknown) (unknown) (no (unknown) (unknown) Total Protein (units ( unknown) date) 8.1 unknown) (unknown) (no (unknown) (unknown) VTE (units (unkno wn) date) unknown) (unknown) (no (unknown) (unknown) VTE Prophylaxis: (units (unknown) date) Wells risk score 0 unknown) [X] Bilateral SCDs (unknown) (no (unknown) (unknown) Vital Signs (units (un known) date) unknown) (unknown) (no (unknown) (unknown) WBC (units (unkno wn) date) unknown) (unknown) (no (unknown) (unknown) WBC 13.4 H (units (un known) date) unknown) (unknown) (no (unknown) (unknown) X-ray acute (units (un known) date) abdomen series was unknown) negative, pelvis ultrasound was negative, CT of (unknown) (no (unknown) (unknown) [Embedded Image (units (unknown) date) Not Available] unknown) (unknown) (no (unknown) (unknown) [X] I have (units (unk nown) date) utilized all unknown) available immediate resources to obtain, update, or (unknown) (no (unknown) (unknown) abdominal pain (units (unknown) date) and was seen in unknown) the emergency department on January 09 and (unknown) (no (unknown) (unknown) aerosol inhaler (units (unknown) date) gram unknown) (unknown) (no (unknown) (unknown) albuterol sulfate (units (unknown) date) 90 mcg/actuation 2 unknown) puff INHALATION Q4-6H PRN #18 06/05/19 Rx (unknown) (no (unknown) (unknown) alcohol intake (units (unknown) date) frequency unknown) holiday/special occasion (unknown) (no (unknown) (unknown) as melena. They (units (unknown) date) sent her home with unknown) Mag citrate which she produced of quite a (unknown) (no (unknown) (unknown) associated mild (units (unknown) date) short-segment unknown) dilatation of the distal ileum likely secondary to (unknown) (no (unknown) (unknown) biopsies were (units ( unknown) date) negative. She unknown) states that her pain is very consistent but has (unknown) (no (unknown) (unknown) bit of stool and (units (unknown) date) has been having unknown) diarrhea ever since. She went her to her PCP (unknown) (no (unknown) (unknown) capsule,extended (units (unknown) date) release 24 hr unknown) (unknown) (no (unknown) (unknown) care is (units (unkno wn) date) appreciated. unknown) (unknown) (no (unknown) (unknown) colon with (units (unk nown) date) air-fluid levels unknown) representing gastroenteritis or ileus, it noted (unknown) (no (unknown) (unknown) colonic (units (unkno wn) date) distension, she unknown) has a hypervascular lesion in the right hepatic lobe (unknown) (no (unknown) (unknown) colonoscopy and (units (unknown) date) endoscopy and it unknown) was found to have an inflamed colon but the (unknown) (no (unknown) (unknown) cyclobenzaprine (units (unknown) date) 10 mg tablet 10 mg unknown) PO TID PRN #12 tab 10/18/19 Rx (unknown) (no (unknown) (unknown) diagnosed with (units (unknown) date) obstipation. At unknown) that time she complained of hematemesis as well (unknown) (no (unknown) (unknown) doxycycline (units (un known) date) [DOXYCYCLINE] unknown) Allergy Unknown Verified 11/15/21 14:12 (unknown) (no (unknown) (unknown) famotidine 40 mg (units (unknown) date) tablet 40 mg PO unknown) DAILY #7 tab 05/14/21 Rx (unknown) (no (unknown) (unknown) for follow-up and (units (unknown) date) was found to still unknown) be constipated. In November she underwent (unknown) (no (unknown) (unknown) fraction (LVEF) (units (unknown) date) less than 40%, or unknown) moderate or severely depressed left (unknown) (no (unknown) (unknown) hydrocodone (units (un known) date) [HYDROCODONE] unknown) Allergy Unknown Verified 11/15/21 14:12 (unknown) (no (unknown) (unknown) kg with a BMI of (units (unknown) date) 29.3 unknown) (unknown) (no (unknown) (unknown) lidocaine Allergy (units (unknown) date) Verified unknown) 11/15/21 14:12 (unknown) (no (unknown) (unknown) lupus, colon (units (u nknown) date) polyps, and unknown) abdominal pain has had a several day history of severe (unknown) (no (unknown) (unknown) midnights. (units (unk nown) date) unknown) (unknown) (no (unknown) (unknown) mucosa pink and (units (unknown) date) moist unknown) (unknown) (no (unknown) (unknown) ondansetron 4 mg (units (unknown) date) disintegrating 4 unknown) mg PO 01/15/22 History (unknown) (no (unknown) (unknown) or changes in (units ( unknown) date) bowel or bladder unknown) control. (unknown) (no (unknown) (unknown) otherwise (units (unkn own) date) documented unknown) (unknown) (no (unknown) (unknown) pain and further (units (unknown) date) delineation of a unknown) potential small bowel obstruction. (unknown) (no (unknown) (unknown) pantoprazole 40 (units (unknown) date) mg tablet,delayed unknown) 40 mg PO DAILY 01/15/22 01/15/22 History (unknown) (no (unknown) (unknown) rate 106, (units (unkn own) date) respiratory rate unknown) 16, oxygen saturation 98% on room air she weighs 75 (unknown) (no (unknown) (unknown) release (units (unkno wn) date) unknown) (unknown) (no (unknown) (unknown) representing a (units ( unknown) date) hemangioma. unknown) Patient is afebrile, blood pressure is 122/75, heart (unknown) (no (unknown) (unknown) review of the (units ( unknown) date) patient's current unknown) medications (unknown) (no (unknown) (unknown) sharp shooting (units (unknown) date) pains in the unknown) meantime. She has a history of an appendectomy in (unknown) (no (unknown) (unknown) shellfish derived (units (unknown) date) Allergy unknown) Anaphylaxis Verified 11/15/21 14:12 (unknown) (no (unknown) (unknown) tablet (units (unkno wn) date) unknown) (unknown) (no (unknown) (unknown) the abdomen and (units (unknown) date) pelvis did unknown) indicate findings of fluid distention throughout the (unknown) (no (unknown) (unknown) venlafaxine 150 (units (unknown) date) mg 150 mg PO DAILY unknown) 01/15/22 01/15/22 History (unknown) (no (unknown) (unknown) ventricular (units (un known) date) systolic unknown) function.: No Result panel 25 (unknown) (no date) (unknown) (unknown) > 60 mL/min (unkn own) (unknown) (no date) (unknown) (unknown) 0.61 mg/dL (unkn own) (unknown) (no date) (unknown) (unknown) 10 mg/dL (unkn own) (unknown) (no date) (unknown) (unknown) 106 mmol/L (unkn own) (unknown) (no date) (unknown) (unknown) 124 mg/dL (unkn own) (unknown) (no date) (unknown) (unknown) 139 mmol/L (unkn own) (unknown) (no date) (unknown) (unknown) 16.4 (units unknown) (unknown) (unknown) (no date) (unknown) (unknown) 25 mmol/L (unkn own) (unknown) (no date) (unknown) (unknown) 4.2 mmol/L (unkn own) (unknown) (no date) (unknown) (unknown) 9.2 mg/dL (unkn own) Result panel 26 (unknown) (no (unknown) (unknown) (no value) (units (unk nown) date) unknown) (unknown) (no (unknown) (unknown) (no value) (units (unk nown) date) unknown) (unknown) (no (unknown) (unknown) Date of Service: (units (unknown) date) 01/15/22 unknown) (unknown) (no (unknown) (unknown) (no value) (units (unk nown) date) unknown) (unknown) (no (unknown) (unknown) - (units (unkno wn) date) unknown) (unknown) (no (unknown) (unknown) 01/15/22 05:41 (units (unknown) date) unknown) (unknown) (no (unknown) (unknown) 01/16/22 05:10 (units (unknown) date) unknown) (unknown) (no (unknown) (unknown) Allergies (units (unkn own) date) unknown) (unknown) (no (unknown) (unknown) History + (units (unkn own) date) Physical Report unknown) (unknown) (no (unknown) (unknown) Home Medications (units (unknown) date) unknown) (unknown) (no (unknown) (unknown) [facility] (units (unknown) date) [address] unknown) [place] [address] (unknown) (no (unknown) (unknown) Laboratory (units (unk nown) date) Results - last 24 unknown) hr (unknown) (no (unknown) (unknown) (no value) (units (unk nown) date) unknown) (unknown) (no (unknown) (unknown) 01/16/22 (units (unkno wn) date) unknown) (unknown) (no (unknown) (unknown) 05:10 (units (unkno wn) date) unknown) (unknown) (no (unknown) (unknown) 01/16/22 (units (unkno wn) date) unknown) (unknown) (no (unknown) (unknown) Medication (units (unk nown) date) Instructions unknown) Recorded Confirmed Type (unknown) (no (unknown) (unknown) (past 8 hours): (units (unknown) date) unknown) (unknown) (no (unknown) (unknown) 01:00 01/16/22 (units (unknown) date) unknown) (unknown) (no (unknown) (unknown) [id number] (units (unkno wn) date) unknown) (unknown) (no (unknown) (unknown) 01/15/22 Rx (units (un known) date) unknown) (unknown) (no (unknown) (unknown) 05:35 01/16/22 (units (unknown) date) unknown) (unknown) (no (unknown) (unknown) 07:00 (units (unkno wn) date) unknown) (unknown) (no (unknown) (unknown) 26-year-old (units (un known) date) female with unknown) several months of abdominal pain admitted to the (unknown) (no (unknown) (unknown) Age/Sex: 26 / F (units (unknown) date) unknown) (unknown) (no (unknown) (unknown) Allergy/AdvReac (units (unknown) date) Type Severity unknown) Reaction Status Date / Time (unknown) (no (unknown) (unknown) Anxiety (units (unkno wn) date) unknown) (unknown) (no (unknown) (unknown) Assessment + Plan (units (unknown) date) unknown) (unknown) (no (unknown) (unknown) BUN 10 (units (unkno wn) date) unknown) (unknown) (no (unknown) (unknown) BUN/Creatinine (units (unknown) date) Ratio 16.4 unknown) (unknown) (no (unknown) (unknown) Been Physically (units (unknown) date) Hurt or No unknown) (unknown) (no (unknown) (unknown) Blood Pressure (units (unknown) date) 114/78 114/69 unknown) (unknown) (no (unknown) (unknown) Calcium 9.2 (units (u nknown) date) unknown) (unknown) (no (unknown) (unknown) Carbon Dioxide (units (unknown) date) 25 unknown) (unknown) (no (unknown) (unknown) Chief complaint: (units (unknown) date) Lower abdominal unknown) pain, hematemasis melana (unknown) (no (unknown) (unknown) Chloride 106 (units ( unknown) date) unknown) (unknown) (no (unknown) (unknown) Creatinine 0.61 (units (unknown) date) unknown) (unknown) (no (unknown) (unknown) Critical Care (units ( unknown) date) time: unknown) (unknown) (no (unknown) (unknown) : 1995 (units (unknown) date) Acct:[id number] unknown) (unknown) (no (unknown) (unknown) Date Patient (units (u nknown) date) Seen: 01/16/22 unknown) (unknown) (no (unknown) (unknown) Deep Vein (units (unkn own) date) Thrombosis/Pulmona unknown) ry Embolism Present on Admission: No (unknown) (no (unknown) (unknown) Environment (units (un known) date) unknown) (unknown) (no (unknown) (unknown) Estimated GFR > (units (unknown) date) 60 unknown) (unknown) (no (unknown) (unknown) Exam (units (unkno wn) date) unknown) (unknown) (no (unknown) (unknown) Exercise-induced (units (unknown) date) asthma unknown) (unknown) (no (unknown) (unknown) Family + Social (units (unknown) date) History unknown) (unknown) (no (unknown) (unknown) Family History (units (unknown) date) (Updated 01/15/22 unknown) @ 06:48 by AI Flores) (unknown) (no (unknown) (unknown) Feels Safe in (units ( unknown) date) Current Yes unknown) (unknown) (no (unknown) (unknown) Glucose 124 H (units (unknown) date) unknown) (unknown) (no (unknown) (unknown) History (units (unkno wn) date) unknown) (unknown) (no (unknown) (unknown) History of (units (unk nown) date) Present Illness unknown) (unknown) (no (unknown) (unknown) Home Medications (units (unknown) date) and Allergies unknown) (unknown) (no (unknown) (unknown) I spent a total (units (unknown) date) of [] minutes of unknown) critical care time on this patient's care (unknown) (no (unknown) (unknown) Labs (units (unkno wn) date) unknown) (unknown) (no (unknown) (unknown) Labs: (units (unkno wn) date) unknown) (unknown) (no (unknown) (unknown) Lupus (units (unkno wn) date) unknown) (unknown) (no (unknown) (unknown) Medical History (units (unknown) date) (Updated 01/15/22 unknown) @ 07:48 by Elvia Nunez RN) (unknown) (no (unknown) (unknown) Meds (units (unkno wn) date) unknown) (unknown) (no (unknown) (unknown) Mother Bowel (units (unknown) date) obstruction unknown) (unknown) (no (unknown) (unknown) Narrative: (units (unk nown) date) unknown) (unknown) (no (unknown) (unknown) Objective (units (unkn own) date) unknown) (unknown) (no (unknown) (unknown) Oxygen Delivery (units (unknown) date) Method Room Air unknown) (unknown) (no (unknown) (unknown) Oxygen Flow Rate (units (unknown) date) 0 unknown) (unknown) (no (unknown) (unknown) Patient History (units (unknown) date) unknown) (unknown) (no (unknown) (unknown) Patient: (units (unkno wn) date) Chelsea Lebron Erin unknown) MR#: [id number] (unknown) (no (unknown) (unknown) Penicillins (units (un known) date) [PENICILLINS] unknown) Allergy Unknown Verified 11/15/21 14:12 (unknown) (no (unknown) (unknown) Potassium 4.2 (units (unknown) date) unknown) (unknown) (no (unknown) (unknown) Provider: (units (unkn own) date) Alli Reed MD unknown) (unknown) (no (unknown) (unknown) Pulse Oximetry 99 (units (unknown) date) 98 98 unknown) (unknown) (no (unknown) (unknown) Pulse Rate 71 77 (units (unknown) date) unknown) (unknown) (no (unknown) (unknown) Quality (units (unkno wn) date) unknown) (unknown) (no (unknown) (unknown) Respiratory Rate (units (unknown) date) 18 18 unknown) (unknown) (no (unknown) (unknown) Result Diagrams: (units (unknown) date) unknown) (unknown) (no (unknown) (unknown) Safety + (units (unkno wn) date) Behavioral: unknown) (unknown) (no (unknown) (unknown) Signed By: (units (unk nown) date) unknown) (unknown) (no (unknown) (unknown) Sister Bowel (units (unknown) date) obstruction unknown) (unknown) (no (unknown) (unknown) Smoking Status (units (unknown) date) Never smoker unknown) (unknown) (no (unknown) (unknown) Sodium 139 (units (un known) date) unknown) (unknown) (no (unknown) (unknown) Substance Use (units ( unknown) date) Type marijuana unknown) (unknown) (no (unknown) (unknown) Temperature 96.8 (units (unknown) date) F L 97.5 F L unknown) (unknown) (no (unknown) (unknown) Threatened By a (units (unknown) date) Person unknown) (unknown) (no (unknown) (unknown) Time Spent With (units (unknown) date) Patient unknown) (unknown) (no (unknown) (unknown) Tobacco + (units (unkn own) date) Substance use: unknown) (unknown) (no (unknown) (unknown) VTE (units (unkno wn) date) unknown) (unknown) (no (unknown) (unknown) Vital Signs (units (un known) date) unknown) (unknown) (no (unknown) (unknown) [Embedded Image (units (unknown) date) Not Available] unknown) (unknown) (no (unknown) (unknown) aerosol inhaler (units (unknown) date) gram unknown) (unknown) (no (unknown) (unknown) albuterol sulfate (units (unknown) date) 90 mcg/actuation 2 unknown) puff INHALATION Q4-6H PRN #18 06/05/19 (unknown) (no (unknown) (unknown) alcohol intake (units (unknown) date) frequency unknown) holiday/special occasion (unknown) (no (unknown) (unknown) capsule,extended (units (unknown) date) release 24 hr unknown) (unknown) (no (unknown) (unknown) cyclobenzaprine (units (unknown) date) 10 mg tablet 10 mg unknown) PO TID PRN #12 tab 10/18/19 01/15/22 Rx (unknown) (no (unknown) (unknown) demonstrates (units (u nknown) date) unknown) (unknown) (no (unknown) (unknown) doxycycline (units (un known) date) [DOXYCYCLINE] unknown) Allergy Unknown Verified 11/15/21 14:12 (unknown) (no (unknown) (unknown) famotidine 40 mg (units (unknown) date) tablet 20 mg PO unknown) BID 01/15/22 01/15/22 History (unknown) (no (unknown) (unknown) hospital for pain (units (unknown) date) control. At unknown) admission a CT abdomen pelvis was obtained which (unknown) (no (unknown) (unknown) hydrocodone (units (un known) date) [HYDROCODONE] unknown) Allergy Unknown Verified 11/15/21 14:12 (unknown) (no (unknown) (unknown) lidocaine Allergy (units (unknown) date) Verified unknown) 11/15/21 14:12 (unknown) (no (unknown) (unknown) ondansetron 4 mg (units (unknown) date) disintegrating See unknown) Rx Instructions .ROUTE 01/15/22 01/15/22 (unknown) (no (unknown) (unknown) pantoprazole 40 (units (unknown) date) mg tablet,delayed unknown) 40 mg PO DAILY 01/15/22 01/15/22 History (unknown) (no (unknown) (unknown) release (units (unkno wn) date) unknown) (unknown) (no (unknown) (unknown) shellfish derived (units (unknown) date) Allergy unknown) Anaphylaxis Verified 11/15/21 14:12 (unknown) (no (unknown) (unknown) tablet .COMPLEX (units (unknown) date) PRN MDD 12 MG unknown) (unknown) (no (unknown) (unknown) today; this time (units (unknown) date) is exclusive of unknown) procedural time. (unknown) (no (unknown) (unknown) venlafaxine 150 (units (unknown) date) mg 150 mg PO DAILY unknown) 01/15/22 01/15/22 History Result panel 27 (unknown) (no (unknown) (unknown) (no value) (units (unk nown) date) unknown) (unknown) (no (unknown) (unknown) Status: Acute (units ( unknown) date) unknown) (unknown) (no (unknown) (unknown) (no value) (units (unk nown) date) unknown) (unknown) (no (unknown) (unknown) Date of Service: (units (unknown) date) 01/15/22 unknown) (unknown) (no (unknown) (unknown) (no value) (units (unk nown) date) unknown) (unknown) (no (unknown) (unknown) - (units (unkno wn) date) unknown) (unknown) (no (unknown) (unknown) 01/15/22 05:41 (units (unknown) date) unknown) (unknown) (no (unknown) (unknown) 01/16/22 05:10 (units (unknown) date) unknown) (unknown) (no (unknown) (unknown) Allergies (units (unkn own) date) unknown) (unknown) (no (unknown) (unknown) History + Physical (units (unknown) date) Report unknown) (unknown) (no (unknown) (unknown) Home Medications (units (unknown) date) unknown) (unknown) (no (unknown) (unknown) [facility] [address] (uni ts (unknown) date) [address] [place] [address], unknown ) [place] [address] (unknown) (no (unknown) (unknown) Laboratory Results - (uni ts (unknown) date) last 24 hr unknown) (unknown) (no (unknown) (unknown) (no value) (units (unk nown) date) unknown) (unknown) (no (unknown) (unknown) 01/16/22 (units (unkno wn) date) unknown) (unknown) (no (unknown) (unknown) 05:10 (units (unkno wn) date) unknown) (unknown) (no (unknown) (unknown) 01/16/22 (units (unkno wn) date) unknown) (unknown) (no (unknown) (unknown) Medication (units (unk nown) date) Instructions Recorded unknown ) Confirmed Type (unknown) (no (unknown) (unknown) (1) Abdominal pain: (unit s (unknown) date) unknown) (unknown) (no (unknown) (unknown) (past 8 hours): (units (unknown) date) unknown) (unknown) (no (unknown) (unknown) 01:00 01/16/22 (units (unknown) date) unknown) (unknown) (no (unknown) (unknown) [id number] (units (unkno wn) date) unknown) (unknown) (no (unknown) (unknown) 01/15/22 Rx (units (un known) date) unknown) (unknown) (no (unknown) (unknown) 05:35 01/16/22 (units (unknown) date) unknown) (unknown) (no (unknown) (unknown) 07:00 (units (unkno wn) date) unknown) (unknown) (no (unknown) (unknown) 26-year-old female (units (unknown) date) with several months of unknown ) abdominal pain admitted to the (unknown) (no (unknown) (unknown) 26-year-old woman (units (unknown) date) admitted to the unknown) hospital with intractable abdominal pain. I (unknown) (no (unknown) (unknown) Abdomen soft mild (units (unknown) date) tenderness lower unknown) abdomen no peritonitis nondistended (unknown) (no (unknown) (unknown) Age/Sex: 26 / F (units (unknown) date) unknown) (unknown) (no (unknown) (unknown) Allergy/AdvReac Type (uni ts (unknown) date) Severity Reaction unknown) Status Date / Time (unknown) (no (unknown) (unknown) Anxiety (units (unkno wn) date) unknown) (unknown) (no (unknown) (unknown) Assessment + Plan (units (unknown) date) unknown) (unknown) (no (unknown) (unknown) Assessment + Plan (units (unknown) date) narrative: unknown) (unknown) (no (unknown) (unknown) Assessment and plan (unit s (unknown) date) unknown) (unknown) (no (unknown) (unknown) BUN 10 (units (unkno wn) date) unknown) (unknown) (no (unknown) (unknown) BUN/Creatinine Ratio (uni ts (unknown) date) 16.4 unknown) (unknown) (no (unknown) (unknown) Been Physically Hurt (uni ts (unknown) date) or No unknown) (unknown) (no (unknown) (unknown) Blood Pressure (units (unknown) date) 114/78 114/69 unknown) (unknown) (no (unknown) (unknown) Calcium 9.2 (units (u nknown) date) unknown) (unknown) (no (unknown) (unknown) Carbon Dioxide 25 (units (unknown) date) unknown) (unknown) (no (unknown) (unknown) Chest nonlabored (units (unknown) date) respirations unknown) (unknown) (no (unknown) (unknown) Chief complaint: (units (unknown) date) Lower abdominal pain, unknown) hematemasis melana (unknown) (no (unknown) (unknown) Chloride 106 (units ( unknown) date) unknown) (unknown) (no (unknown) (unknown) Creatinine 0.61 (units (unknown) date) unknown) (unknown) (no (unknown) (unknown) Critical Care time: (unit s (unknown) date) unknown) (unknown) (no (unknown) (unknown) : 1995 (units (unknown) date) Acct:[id number] unknown) (unknown) (no (unknown) (unknown) Date Patient Seen: (units (unknown) date) 01/16/22 unknown) (unknown) (no (unknown) (unknown) Deep Vein (units (unkn own) date) Thrombosis/Pulmonary unknown) Embolism Present on Admission: No (unknown) (no (unknown) (unknown) Environment (units (un known) date) unknown) (unknown) (no (unknown) (unknown) Estimated GFR > 60 (unit s (unknown) date) unknown) (unknown) (no (unknown) (unknown) Exam (units (unkno wn) date) unknown) (unknown) (no (unknown) (unknown) Exam Narrative: (units (unknown) date) unknown) (unknown) (no (unknown) (unknown) Exercise-induced (units (unknown) date) asthma unknown) (unknown) (no (unknown) (unknown) Family + Social (units (unknown) date) History unknown) (unknown) (no (unknown) (unknown) Family History (units (unknown) date) (Reviewed 01/16/22 @ unknown) 08:07 by Alli Reed MD) (unknown) (no (unknown) (unknown) Feels Safe in Current (un its (unknown) date) Yes unknown) (unknown) (no (unknown) (unknown) General adult woman (unit s (unknown) date) alert oriented no unknown) acute distress (unknown) (no (unknown) (unknown) Glucose 124 H (units (unknown) date) unknown) (unknown) (no (unknown) (unknown) History (units (unkno wn) date) unknown) (unknown) (no (unknown) (unknown) History of Present (units (unknown) date) Illness unknown) (unknown) (no (unknown) (unknown) Home Medications and (uni ts (unknown) date) Allergies unknown) (unknown) (no (unknown) (unknown) I spent a total of [] (un its (unknown) date) minutes of critical unknown) care time on this patient's care (unknown) (no (unknown) (unknown) Labs (units (unkno wn) date) unknown) (unknown) (no (unknown) (unknown) Labs: (units (unkno wn) date) unknown) (unknown) (no (unknown) (unknown) Lupus (units (unkno wn) date) unknown) (unknown) (no (unknown) (unknown) Medical History (units (unknown) date) (Reviewed 01/16/22 @ unknown) 08:07 by Alli Reed MD) (unknown) (no (unknown) (unknown) Meds (units (unkno wn) date) unknown) (unknown) (no (unknown) (unknown) Mother Bowel (units (unknown) date) obstruction unknown) (unknown) (no (unknown) (unknown) Narrative (units (unkn own) date) unknown) (unknown) (no (unknown) (unknown) Narrative: (units (unk nown) date) unknown) (unknown) (no (unknown) (unknown) Objective (units (unkn own) date) unknown) (unknown) (no (unknown) (unknown) Oxygen Delivery (units (unknown) date) Method Room Air unknown) (unknown) (no (unknown) (unknown) Oxygen Flow Rate 0 (un its (unknown) date) unknown) (unknown) (no (unknown) (unknown) Patient History (units (unknown) date) unknown) (unknown) (no (unknown) (unknown) Patient: (units (unkno wn) date) Chelsea Lebron unknown) MR#: [id number] (unknown) (no (unknown) (unknown) Penicillins (units (un known) date) [PENICILLINS] Allergy unknown) Unknown Verified 11/15/21 14:12 (unknown) (no (unknown) (unknown) Potassium 4.2 (units (unknown) date) unknown) (unknown) (no (unknown) (unknown) Provider: (units (unkn own) date) Alli Reed MD unknown) (unknown) (no (unknown) (unknown) Pulse Oximetry 99 98 (uni ts (unknown) date) 98 unknown) (unknown) (no (unknown) (unknown) Pulse Rate 71 77 (units (unknown) date) unknown) (unknown) (no (unknown) (unknown) Quality (units (unkno wn) date) unknown) (unknown) (no (unknown) (unknown) Respiratory Rate 18 (uni ts (unknown) date) 18 unknown) (unknown) (no (unknown) (unknown) Result Diagrams: (units (unknown) date) unknown) (unknown) (no (unknown) (unknown) Safety + Behavioral: (uni ts (unknown) date) unknown) (unknown) (no (unknown) (unknown) Signed (units (unkno wn) date) By:<Electronically unknown) signed by Alli Reed MD>01/16/22 0811 (unknown) (no (unknown) (unknown) Sister Bowel (units (unknown) date) obstruction unknown) (unknown) (no (unknown) (unknown) Smoking Status (units (unknown) date) Never smoker unknown) (unknown) (no (unknown) (unknown) Sodium 139 (units (un known) date) unknown) (unknown) (no (unknown) (unknown) Substance Use Type (units (unknown) date) marijuana unknown) (unknown) (no (unknown) (unknown) Temperature 96.8 F L (un its (unknown) date) 97.5 F L unknown) (unknown) (no (unknown) (unknown) Threatened By a (units (unknown) date) Person unknown) (unknown) (no (unknown) (unknown) Time Spent With (units (unknown) date) Patient unknown) (unknown) (no (unknown) (unknown) Tobacco + Substance (unit s (unknown) date) use: unknown) (unknown) (no (unknown) (unknown) VTE (units (unkno wn) date) unknown) (unknown) (no (unknown) (unknown) Vital Signs (units (un known) date) unknown) (unknown) (no (unknown) (unknown) [Embedded Image Not (unit s (unknown) date) Available] unknown) (unknown) (no (unknown) (unknown) abdominal pain on (units (unknown) date) examination no unknown) peritonitis laboratory studies including CBC (unknown) (no (unknown) (unknown) aerosol inhaler gram (uni ts (unknown) date) unknown) (unknown) (no (unknown) (unknown) albuterol sulfate 90 (uni ts (unknown) date) mcg/actuation 2 puff unknown) INHALATION Q4-6H PRN #18 06/05/19 (unknown) (no (unknown) (unknown) alcohol intake (units (unknown) date) frequency unknown) holiday/special occasion (unknown) (no (unknown) (unknown) are unremarkable. No (un its (unknown) date) acute surgical unknown) process. Recommend advancement of diet as (unknown) (no (unknown) (unknown) at [facility]. It (units (unknown) date) demonstrated mild unknown) gastritis and pathology from the upper GI was (unknown) (no (unknown) (unknown) better than (units (un known) date) yesterday. unknown) (unknown) (no (unknown) (unknown) capsule,extended (units (unknown) date) release 24 hr unknown) (unknown) (no (unknown) (unknown) cyclobenzaprine 10 mg (un its (unknown) date) tablet 10 mg PO TID unknown) PRN #12 tab 10/18/19 01/15/22 Rx (unknown) (no (unknown) (unknown) demonstrates mild (units (unknown) date) dilation of the small unknown) bowel and colon no obstruction. She (unknown) (no (unknown) (unknown) doxycycline (units (un known) date) [DOXYCYCLINE] Allergy unknown) Unknown Verified 11/15/21 14:12 (unknown) (no (unknown) (unknown) famotidine 40 mg (units (unknown) date) tablet 20 mg PO BID unknown) 01/15/22 01/15/22 History (unknown) (no (unknown) (unknown) have reviewed her CT (uni ts (unknown) date) abdomen pelvis which unknown) demonstrates mild distension of the (unknown) (no (unknown) (unknown) hospital for pain (units (unknown) date) control. At admission unknown ) a CT abdomen pelvis was obtained which (unknown) (no (unknown) (unknown) hydrocodone (units (un known) date) [HYDROCODONE] Allergy unknown) Unknown Verified 11/15/21 14:12 (unknown) (no (unknown) (unknown) lidocaine Allergy (units (unknown) date) Verified 11/15/21 unknown) 14:12 (unknown) (no (unknown) (unknown) normal as well as (units (unknown) date) random colonic unknown) biopsies were normal. Currently she is feeling (unknown) (no (unknown) (unknown) ondansetron 4 mg (units (unknown) date) disintegrating See Rx unknown) Instructions .ROUTE 01/15/22 01/15/22 (unknown) (no (unknown) (unknown) pantoprazole 40 mg (units (unknown) date) tablet,delayed 40 mg unknown) PO DAILY 01/15/22 01/15/22 History (unknown) (no (unknown) (unknown) release (units (unkno wn) date) unknown) (unknown) (no (unknown) (unknown) shellfish derived (units (unknown) date) Allergy Anaphylaxis unknown) Verified 11/15/21 14:12 (unknown) (no (unknown) (unknown) small bowel and colon (un its (unknown) date) there is no unknown) obstruction free air free fluid. Mild (unknown) (no (unknown) (unknown) tablet .COMPLEX PRN (unit s (unknown) date) MDD 12 MG unknown) (unknown) (no (unknown) (unknown) tells me that she (units (unknown) date) recently had a unknown) esophagoduodenoscopy and colonoscopy performed (unknown) (no (unknown) (unknown) today; this time is (unit s (unknown) date) exclusive of unknown) procedural time. 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 (unknown) (no (unknown) (unknown) venlafaxine 150 mg (units (unknown) date) 150 mg PO DAILY unknown) 01/15/22 01/15/22 History Result panel 28 (unknown) (no (unknown) (unknown) (no value) (units (unk nown) date) unknown) (unknown) (no (unknown) (unknown) Date of Service: (units (unknown) date) 01/15/22 unknown) (unknown) (no (unknown) (unknown) (no value) (units (unk nown) date) unknown) (unknown) (no (unknown) (unknown) - (units (unkno wn) date) unknown) (unknown) (no (unknown) (unknown) 01/15/22 05:41 (units (unknown) date) unknown) (unknown) (no (unknown) (unknown) 01/16/22 05:10 (units (unknown) date) unknown) (unknown) (no (unknown) (unknown) 1 g PO QACHS Qty: (units (unknown) date) 120 4RF unknown) (unknown) (no (unknown) (unknown) 10 mg PO (units (un known) date) DIRECTED Qty: 120 unknown) 1RF (unknown) (no (unknown) (unknown) 10 mg PO TID PRN (units (unknown) date) (Reason: muscle unknown) spasm) Qty: 12 0RF (unknown) (no (unknown) (unknown) 10MG PO X 7 DAYS (units (unknown) date) unknown) (unknown) (no (unknown) (unknown) 150 mg PO DAILY (units (unknown) date) 0RF unknown) (unknown) (no (unknown) (unknown) 15MG PO X 7 DAYS (units (unknown) date) unknown) (unknown) (no (unknown) (unknown) 2 puff INHALATION (units (unknown) date) Q4-6H PRN (Reason: unknown) shortness of breath) Qty: 18 0RF (unknown) (no (unknown) (unknown) 20 mg PO BID 0RF (units (unknown) date) unknown) (unknown) (no (unknown) (unknown) 20MG PO X 7 DAYS (units (unknown) date) unknown) (unknown) (no (unknown) (unknown) 25MG PO X 7 DAYS (units (unknown) date) unknown) (unknown) (no (unknown) (unknown) 30MG PO X 7 DAYS (units (unknown) date) unknown) (unknown) (no (unknown) (unknown) 35MG PO X 7 DAYS (units (unknown) date) unknown) (unknown) (no (unknown) (unknown) 4 mg orally (units (un known) date) unknown) (unknown) (no (unknown) (unknown) 40 mg PO BID Qty: (units (unknown) date) 60 4RF unknown) (unknown) (no (unknown) (unknown) 40 mg PO DAILY (units (unknown) date) 0RF unknown) (unknown) (no (unknown) (unknown) 40MG PO X 7 DAYS (units (unknown) date) unknown) (unknown) (no (unknown) (unknown) 45MG PO X 7 DAYS (units (unknown) date) unknown) (unknown) (no (unknown) (unknown) 5 mg PO Q8H PRN (units (unknown) date) (Reason: pain) unknown) Qty: 10 0RF (unknown) (no (unknown) (unknown) 50 mg PO Q4H PRN (units (unknown) date) (Reason: pain) unknown) Qty: 30 0RF (unknown) (no (unknown) (unknown) 50MG PO X 7 DAYS (units (unknown) date) unknown) (unknown) (no (unknown) (unknown) 55MG PO X 7 DAYS (units (unknown) date) unknown) (unknown) (no (unknown) (unknown) 5MG PO X 7 DAYS (units (unknown) date) unknown) (unknown) (no (unknown) (unknown) 60MG PO X 7 DAYS (units (unknown) date) unknown) (unknown) (no (unknown) (unknown) Comment: (units (unkno wn) date) unknown) (unknown) (no (unknown) (unknown) Consulting (units (unk nown) date) Provider: unknown) Alli Reed (unknown) (no (unknown) (unknown) DISSOLVE ONE (units (u nknown) date) TABLET IN MOUTH unknown) EVERY 8 HOURS NEEDED FOR NAUSEA AND VOMITING (unknown) (no (unknown) (unknown) Discharge Summary (units (unknown) date) unknown) (unknown) (no (unknown) (unknown) Has provider been (units (unknown) date) notified: No unknown) (unknown) (no (unknown) (unknown) [facility] (units (unknown) date) [address] unknown) [place] [id number] (unknown) (no (unknown) (unknown) Label Comments: (units (unknown) date) unknown) (unknown) (no (unknown) (unknown) Laboratory (units (unk nown) date) Results - last 24 unknown) hr (unknown) (no (unknown) (unknown) Reason for (units (unk nown) date) consultation: unknown) severe abdominal pain (unknown) (no (unknown) (unknown) Rx Instructions: (units (unknown) date) unknown) (unknown) (no (unknown) (unknown) See Rx (units (unkno wn) date) Instructions unknown) .ROUTE .COMPLEX MDD 12 MG PRN (Reason: Nausea) 0RF (unknown) (no (unknown) (unknown) TAKE ONE TABLET (units (unknown) date) BY MOUTH ONE TIME unknown) DAILY (unknown) (no (unknown) (unknown) (no value) (units (unk nown) date) unknown) (unknown) (no (unknown) (unknown) 01/16/22 (units (unkno wn) date) unknown) (unknown) (no (unknown) (unknown) 05:10 (units (unkno wn) date) unknown) (unknown) (no (unknown) (unknown) albuterol sulfate (units (unknown) date) 90 mcg/actuation unknown) HFA aerosol inhaler (unknown) (no (unknown) (unknown) cyclobenzaprine (units (unknown) date) 10 mg tablet unknown) (unknown) (no (unknown) (unknown) famotidine 40 mg (units (unknown) date) tablet unknown) (unknown) (no (unknown) (unknown) ondansetron 4 mg (units (unknown) date) tablet,disintegrat unknown) ing (unknown) (no (unknown) (unknown) oxycodone 5 mg (units (unknown) date) tablet unknown) (unknown) (no (unknown) (unknown) pantoprazole 40 (units (unknown) date) mg tablet,delayed unknown) release (DR/EC) (unknown) (no (unknown) (unknown) prednisone 10 mg (units (unknown) date) tablet unknown) (unknown) (no (unknown) (unknown) sucralfate 1 gram (units (unknown) date) tablet unknown) (unknown) (no (unknown) (unknown) tramadol 50 mg (units (unknown) date) tablet unknown) (unknown) (no (unknown) (unknown) venlafaxine 150 (units (unknown) date) mg unknown) capsule,extended release 24hr (unknown) (no (unknown) (unknown) 01/16/22 (units (unkno wn) date) unknown) (unknown) (no (unknown) (unknown) (past 8 hours): (units (unknown) date) unknown) (unknown) (no (unknown) (unknown) [id number] (units (unkno wn) date) unknown) (unknown) (no (unknown) (unknown) 01/15/22 00:58 (units (unknown) date) unknown) (unknown) (no (unknown) (unknown) 01/15/22 03:03 (units (unknown) date) unknown) (unknown) (no (unknown) (unknown) 05:35 01/16/22 (units (unknown) date) unknown) (unknown) (no (unknown) (unknown) 07:00 (units (unkno wn) date) unknown) (unknown) (no (unknown) (unknown) Activity: (units (u nknown) date) TOLERATED unknown) (unknown) (no (unknown) (unknown) Age/Sex: 26 / F (units (unknown) date) unknown) (unknown) (no (unknown) (unknown) Anxiety (units (unkno wn) date) unknown) (unknown) (no (unknown) (unknown) Attending (units (unkn own) date) Provider: unknown) Radha House (unknown) (no (unknown) (unknown) BUN 10 (units (unkno wn) date) unknown) (unknown) (no (unknown) (unknown) BUN/Creatinine (units (unknown) date) Ratio 16.4 unknown) (unknown) (no (unknown) (unknown) Blood Pressure (units (unknown) date) 114/78 114/69 unknown) (unknown) (no (unknown) (unknown) Calcium 9.2 (units (u nknown) date) unknown) (unknown) (no (unknown) (unknown) Carbon Dioxide (units (unknown) date) 25 unknown) (unknown) (no (unknown) (unknown) Chief complaint: (units (unknown) date) Lower abdominal unknown) pain, hematemasis melana (unknown) (no (unknown) (unknown) Chloride 106 (units ( unknown) date) unknown) (unknown) (no (unknown) (unknown) Consult to (units (unk nown) date) Physician Routine unknown) (unknown) (no (unknown) (unknown) Consults: (units (unkn own) date) unknown) (unknown) (no (unknown) (unknown) Continued (units (unkn own) date) unknown) (unknown) (no (unknown) (unknown) Creatinine 0.61 (units (unknown) date) unknown) (unknown) (no (unknown) (unknown) : 1995 (units (unknown) date) Acct:[id number] unknown) (unknown) (no (unknown) (unknown) Date Patient (units (u nknown) date) Seen: 01/16/22 unknown) (unknown) (no (unknown) (unknown) Date of (units (unkno wn) date) admission: unknown) (unknown) (no (unknown) (unknown) Deep Vein (units (unkn own) date) Thrombosis/Pulmona unknown) ry Embolism Present on Admission: No (unknown) (no (unknown) (unknown) Diet/Activity/Jackson (units (unknown) date) atments unknown) (unknown) (no (unknown) (unknown) Diet: Full Liquid (units (unknown) date) unknown) (unknown) (no (unknown) (unknown) Discharge Data (units (unknown) date) unknown) (unknown) (no (unknown) (unknown) Discharge Plan (units (unknown) date) unknown) (unknown) (no (unknown) (unknown) Discharge (units (unkn own) date) Providers unknown) (unknown) (no (unknown) (unknown) Discharge orders (units (unknown) date) + Medications unknown) (unknown) (no (unknown) (unknown) Discharge (units (unkn own) date) provider: unknown) (unknown) (no (unknown) (unknown) Discontinued (units (u nknown) date) unknown) (unknown) (no (unknown) (unknown) Estimated GFR > (units (unknown) date) 60 unknown) (unknown) (no (unknown) (unknown) Exam (units (unkno wn) date) unknown) (unknown) (no (unknown) (unknown) Exercise-induced (units (unknown) date) asthma unknown) (unknown) (no (unknown) (unknown) Family History (units (unknown) date) (Reviewed 01/16/22 unknown) @ 08:07 by Alli Reed MD) (unknown) (no (unknown) (unknown) Glucose 124 H (units (unknown) date) unknown) (unknown) (no (unknown) (unknown) History of (units (unk nown) date) Present Illness unknown) (unknown) (no (unknown) (unknown) Jhonstanley (units (un known) date) Cottonwood-Schnaeidr, unknown) DO (unknown) (no (unknown) (unknown) Labs (units (unkno wn) date) unknown) (unknown) (no (unknown) (unknown) Labs: (units (unkno wn) date) unknown) (unknown) (no (unknown) (unknown) Lupus (units (unkno wn) date) unknown) (unknown) (no (unknown) (unknown) Medical History (units (unknown) date) (Reviewed 01/16/22 unknown) @ 08:07 by Alli Reed MD) (unknown) (no (unknown) (unknown) Mother Bowel (units (unknown) date) obstruction unknown) (unknown) (no (unknown) (unknown) New (units (unkno wn) date) unknown) (unknown) (no (unknown) (unknown) Nursing Discharge (units (unknown) date) Comment: F/U WITH unknown) PCP IN 2-3 WEEKS (unknown) (no (unknown) (unknown) Objective (units (unkn own) date) unknown) (unknown) (no (unknown) (unknown) Oxygen Delivery (units (unknown) date) Method Room Air unknown) (unknown) (no (unknown) (unknown) Oxygen Flow Rate (units (unknown) date) 0 unknown) (unknown) (no (unknown) (unknown) PFSH (units (unkno wn) date) unknown) (unknown) (no (unknown) (unknown) Patient (units (unkno wn) date) Disposition: Home unknown) (unknown) (no (unknown) (unknown) Patient: (units (unkno wn) date) Chelsea Lebron unknown) MR#: [id number] (unknown) (no (unknown) (unknown) Potassium 4.2 (units (unknown) date) unknown) (unknown) (no (unknown) (unknown) Prescriptions: (units (unknown) date) unknown) (unknown) (no (unknown) (unknown) Provider (units (unkno wn) date) unknown) (unknown) (no (unknown) (unknown) Provider: (units (unkn own) date) Ellie Severino unknown) isabelle (unknown) (no (unknown) (unknown) Pulse Oximetry 98 (units (unknown) date) 98 unknown) (unknown) (no (unknown) (unknown) Pulse Rate 71 77 (units (unknown) date) unknown) (unknown) (no (unknown) (unknown) Quality (units (unkno wn) date) unknown) (unknown) (no (unknown) (unknown) Respiratory Rate (units (unknown) date) 18 18 unknown) (unknown) (no (unknown) (unknown) Result Diagrams: (units (unknown) date) unknown) (unknown) (no (unknown) (unknown) Signed By: (units (unk nown) date) unknown) (unknown) (no (unknown) (unknown) Sister Bowel (units (unknown) date) obstruction unknown) (unknown) (no (unknown) (unknown) Smoking Status: (units (unknown) date) Never smoker unknown) (unknown) (no (unknown) (unknown) Social History (units (unknown) date) (Reviewed 01/15/22 unknown) @ 04:53 by Mario Ashraf DO) (unknown) (no (unknown) (unknown) Sodium 139 (units (un known) date) unknown) (unknown) (no (unknown) (unknown) Temperature 96.8 (units (unknown) date) F L 97.5 F L unknown) (unknown) (no (unknown) (unknown) VTE (units (unkno wn) date) unknown) (unknown) (no (unknown) (unknown) Vital Signs (units (un known) date) unknown) (unknown) (no (unknown) (unknown) [Embedded Image (units (unknown) date) Not Available] unknown) Result panel 29 (unknown) (no (unknown) (unknown) (no value) (units (unk nown) date) unknown) (unknown) (no (unknown) (unknown) Date of Service: (units (unknown) date) 01/15/22 unknown) (unknown) (no (unknown) (unknown) (no value) (units (unk nown) date) unknown) (unknown) (no (unknown) (unknown) - (units (unkno wn) date) unknown) (unknown) (no (unknown) (unknown) 01/15/22 05:41 (units (unknown) date) unknown) (unknown) (no (unknown) (unknown) 01/16/22 05:10 (units (unknown) date) unknown) (unknown) (no (unknown) (unknown) 1 g PO QACHS Qty: (units (unknown) date) 120 4RF unknown) (unknown) (no (unknown) (unknown) 10 mg PO (units (un known) date) DIRECTED Qty: 120 unknown) 1RF (unknown) (no (unknown) (unknown) 10 mg PO TID PRN (units (unknown) date) (Reason: muscle unknown) spasm) Qty: 12 0RF (unknown) (no (unknown) (unknown) 10MG PO X 7 DAYS (units (unknown) date) unknown) (unknown) (no (unknown) (unknown) 150 mg PO DAILY 0RF (unit s (unknown) date) unknown) (unknown) (no (unknown) (unknown) 15MG PO X 7 DAYS (units (unknown) date) unknown) (unknown) (no (unknown) (unknown) 2 puff INHALATION (units (unknown) date) Q4-6H PRN (Reason: unknown) shortness of breath) Qty: 18 0RF (unknown) (no (unknown) (unknown) 20 mg PO BID 0RF (units (unknown) date) unknown) (unknown) (no (unknown) (unknown) 20MG PO X 7 DAYS (units (unknown) date) unknown) (unknown) (no (unknown) (unknown) 25MG PO X 7 DAYS (units (unknown) date) unknown) (unknown) (no (unknown) (unknown) 30MG PO X 7 DAYS (units (unknown) date) unknown) (unknown) (no (unknown) (unknown) 35MG PO X 7 DAYS (units (unknown) date) unknown) (unknown) (no (unknown) (unknown) 4 mg orally (units (un known) date) unknown) (unknown) (no (unknown) (unknown) 40 mg PO BID Qty: (units (unknown) date) 60 4RF unknown) (unknown) (no (unknown) (unknown) 40 mg PO DAILY 0RF (units (unknown) date) unknown) (unknown) (no (unknown) (unknown) 40MG PO X 7 DAYS (units (unknown) date) unknown) (unknown) (no (unknown) (unknown) 45MG PO X 7 DAYS (units (unknown) date) unknown) (unknown) (no (unknown) (unknown) 5 mg PO Q8H PRN (units (unknown) date) (Reason: pain) Qty: unknown) 10 0RF (unknown) (no (unknown) (unknown) 50 mg PO Q4H PRN (units (unknown) date) (Reason: pain) Qty: unknown) 30 0RF (unknown) (no (unknown) (unknown) 50MG PO X 7 DAYS (units (unknown) date) unknown) (unknown) (no (unknown) (unknown) 55MG PO X 7 DAYS (units (unknown) date) unknown) (unknown) (no (unknown) (unknown) 5MG PO X 7 DAYS (units (unknown) date) unknown) (unknown) (no (unknown) (unknown) 60MG PO X 7 DAYS (units (unknown) date) unknown) (unknown) (no (unknown) (unknown) Comment: (units (unkno wn) date) unknown) (unknown) (no (unknown) (unknown) Consulting (units (unk nown) date) Provider: unknown) Alli Reed (unknown) (no (unknown) (unknown) DISSOLVE ONE TABLET (unit s (unknown) date) IN MOUTH EVERY 8 unknown) HOURS NEEDED FOR NAUSEA AND VOMITING (unknown) (no (unknown) (unknown) Discharge Summary (units (unknown) date) unknown) (unknown) (no (unknown) (unknown) HER PAIN (units (unkno wn) date) SIGNIFICANTLY unknown) IMPROVED WHILE ON STEROIDS. (unknown) (no (unknown) (unknown) Has provider been (units (unknown) date) notified: No unknown) (unknown) (no (unknown) (unknown) [facility] (units (unknown) date) [address] unknown) [place] [address] (unknown) (no (unknown) (unknown) Label Comments: (units (unknown) date) unknown) (unknown) (no (unknown) (unknown) Laboratory Results (units (unknown) date) - last 24 hr unknown) (unknown) (no (unknown) (unknown) Reason for (units (unk nown) date) consultation: severe unknown) abdominal pain (unknown) (no (unknown) (unknown) Rx Instructions: (units (unknown) date) unknown) (unknown) (no (unknown) (unknown) See Rx Instructions (unit s (unknown) date) .ROUTE .COMPLEX MDD unknown) 12 MG PRN (Reason: Nausea) 0RF (unknown) (no (unknown) (unknown) TAKE ONE TABLET BY (units (unknown) date) MOUTH ONE TIME DAILY unknown) (unknown) (no (unknown) (unknown) (no value) (units (unk nown) date) unknown) (unknown) (no (unknown) (unknown) 01/16/22 (units (unkno wn) date) unknown) (unknown) (no (unknown) (unknown) 05:10 (units (unkno wn) date) unknown) (unknown) (no (unknown) (unknown) A REFERRAL TO A (units (unknown) date) HEADWAITRESS AT THE unknown) [facility] F[facility] WITH ADEQUATE (unknown) (no (unknown) (unknown) AVOID RED MEAT (units (unknown) date) FOR THE NEXT FEW unknown) WEEKS. (unknown) (no (unknown) (unknown) FOLLOW-UP WITH (units (unknown) date) PRIMARY CARE unknown) RECOMMENDED WITHIN 2-4 WEEKS. 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 (unknown) (no (unknown) (unknown) HOWEVER BIOPSY (units (unknown) date) TAKEN DID NOT SHOW unknown) TYPICAL SIGN OF INFLAMMATORY BOWEL DISEASE (unknown) (no (unknown) (unknown) IN THE MEANWHILE, (units (unknown) date) SHE WAS TREATED WITH unknown) STEROIDS HERE AND RESPONDED VERY WELL (unknown) (no (unknown) (unknown) INSTRUCTIONS (units (u nknown) date) unknown) (unknown) (no (unknown) (unknown) OTHERWISE SHE IS (units (unknown) date) STABLE AT THIS TIME unknown) CLINICALLY. SHE WILL BE DISCHARGED (unknown) (no (unknown) (unknown) PATIENT ALSO (units (u nknown) date) RECOMMENDED TO unknown) REMAIN ON A FULL LIQUID DIET VERSUS GI SOFT TO (unknown) (no (unknown) (unknown) PATIENT REPORTEDLY (units (unknown) date) HAS BEEN HAVING unknown) SIGNIFICANT ISSUES WITH ABDOMINAL PAIN AND (unknown) (no (unknown) (unknown) SHE CONTINUED TO (units (unknown) date) HAVE RECURRING PAIN. unknown) ALSO REPORTED FREQUENT BOUT OF LOOSE (unknown) (no (unknown) (unknown) SHE WILL BE (units (un known) date) DISCHARGED ON ALLOW unknown) ON TAPER DOSE OF PREDNISONE. (unknown) (no (unknown) (unknown) THIS WILL GO ON FOR (unit s (unknown) date) THE NEXT 8 WEEKS OR unknown) SO OR UNTIL STOP BY HER OUTPATIENT (unknown) (no (unknown) (unknown) TRAMADOL WILL BE (units (unknown) date) ORDERED BREAKTHROUGH unknown) PAIN ALSO. (unknown) (no (unknown) (unknown) albuterol sulfate (units (unknown) date) 90 mcg/actuation HFA unknown) aerosol inhaler (unknown) (no (unknown) (unknown) cyclobenzaprine 10 (units (unknown) date) mg tablet unknown) (unknown) (no (unknown) (unknown) famotidine 40 mg (units (unknown) date) tablet unknown) (unknown) (no (unknown) (unknown) ondansetron 4 mg (units (unknown) date) tablet,disintegratin unknown) g (unknown) (no (unknown) (unknown) oxycodone 5 mg (units (unknown) date) tablet unknown) (unknown) (no (unknown) (unknown) pantoprazole 40 mg (units (unknown) date) tablet,delayed unknown) release (DR/EC) (unknown) (no (unknown) (unknown) prednisone 10 mg (units (unknown) date) tablet unknown) (unknown) (no (unknown) (unknown) sucralfate 1 gram (units (unknown) date) tablet unknown) (unknown) (no (unknown) (unknown) tramadol 50 mg (units (unknown) date) tablet unknown) (unknown) (no (unknown) (unknown) venlafaxine 150 mg (units (unknown) date) capsule,extended unknown) release 24hr (unknown) (no (unknown) (unknown) 01/16/22 (units (unkno wn) date) unknown) (unknown) (no (unknown) (unknown) ABDOMINAL PAIN. (units (unknown) date) LIKELY ASSOCIATED unknown) WITH INFLAMMATORY BOWEL SYNDROME VERSUS (unknown) (no (unknown) (unknown) ACTIVITIES (units ( unknown) date) TOLERATED unknown) (unknown) (no (unknown) (unknown) AVOID ALCOHOL (units ( unknown) date) PRODUCTS unknown) (unknown) (no (unknown) (unknown) AVOID TOBACCO (units ( unknown) date) PRODUCTS unknown) (unknown) (no (unknown) (unknown) FIBROMYALGIA PER (units (unknown) date) HISTORY unknown) (unknown) (no (unknown) (unknown) FOLLOW WITH PRIMARY (unit s (unknown) date) CARE PHYSICIAN OR unknown) RN ADMIT WITHIN 2-4 WEEKS (unknown) (no (unknown) (unknown) FULL LIQUID VERSUS (units (unknown) date) GI SOFT DIET unknown) (unknown) (no (unknown) (unknown) OVERWEIGHT WITH A (units (unknown) date) BMI OF 29. unknown) LIFESTYLE CHANGES RECOMMENDED (unknown) (no (unknown) (unknown) PATIENT ALSO (units (u nknown) date) DISCHARGED ON unknown) PROTONIX B.I.D. WITH CARAFATE ADDED. (unknown) (no (unknown) (unknown) PEPTIC ULCER (units (u nknown) date) DISEASE VERSUS ACID unknown) REFLUX DISEASE PER HISTORY (unknown) (no (unknown) (unknown) REACTIVE (units (unkno wn) date) HYPERGLYCEMIA unknown) (unknown) (no (unknown) (unknown) REPORT BLACK TARRY (units (unknown) date) STOOL OR ANY BLOOD unknown) IN THE SPUTUM (unknown) (no (unknown) (unknown) SHE WAS ADVICE TO (units (unknown) date) TAKE NSAID IN unknown) COMBINATION WITH TYLENOL OTC FOR PAIN (unknown) (no (unknown) (unknown) TAKE MEDICATION (units (unknown) date) PRESCRIBED ONLY unknown) (unknown) (no (unknown) (unknown) (past 8 hours): (units (unknown) date) unknown) (unknown) (no (unknown) (unknown) [id number] (units (unkno wn) date) unknown) (unknown) (no (unknown) (unknown) 01/15/22 00:58 (units (unknown) date) unknown) (unknown) (no (unknown) (unknown) 01/15/22 03:03 (units (unknown) date) unknown) (unknown) (no (unknown) (unknown) 05:35 01/16/22 (units (unknown) date) unknown) (unknown) (no (unknown) (unknown) 07:00 (units (unkno wn) date) unknown) (unknown) (no (unknown) (unknown) 2020.? She denies (units (unknown) date) fevers sweats, unknown) denies shortness of breath, chest pain, dysuria (unknown) (no (unknown) (unknown) ALLOW FOR PROPER (units (unknown) date) BOWEL REST. unknown) (unknown) (no (unknown) (unknown) AVAILABLE RESOURCES (unit s (unknown) date) TO MAKE FOR unknown) DIAGNOSIS IS RECOMMENDED. (unknown) (no (unknown) (unknown) Activity: (units (u nknown) date) TOLERATED unknown) (unknown) (no (unknown) (unknown) Age/Sex: 26 / F (units (unknown) date) unknown) (unknown) (no (unknown) (unknown) Anxiety (units (unkno wn) date) unknown) (unknown) (no (unknown) (unknown) Attending Provider: (unit s (unknown) date) Radha House unknown) (unknown) (no (unknown) (unknown) BOWEL MOVEMENTS (units (unknown) date) unknown) (unknown) (no (unknown) (unknown) BUN 10 (units (unkno wn) date) unknown) (unknown) (no (unknown) (unknown) BUN/Creatinine (units (unknown) date) Ratio 16.4 unknown) (unknown) (no (unknown) (unknown) Blood Pressure (units (unknown) date) 114/78 114/69 unknown) (unknown) (no (unknown) (unknown) COLON. (units (unkno wn) date) unknown) (unknown) (no (unknown) (unknown) Calcium 9.2 (units (u nknown) date) unknown) (unknown) (no (unknown) (unknown) Carbon Dioxide 25 (units (unknown) date) unknown) (unknown) (no (unknown) (unknown) Chief complaint: (units (unknown) date) Lower abdominal unknown) pain, hematemasis melana (unknown) (no (unknown) (unknown) Chloride 106 (units ( unknown) date) unknown) (unknown) (no (unknown) (unknown) Consult to (units (unk nown) date) Physician Routine unknown) (unknown) (no (unknown) (unknown) Consults: (units (unkn own) date) unknown) (unknown) (no (unknown) (unknown) Continued (units (unkn own) date) unknown) (unknown) (no (unknown) (unknown) Creatinine 0.61 (units (unknown) date) unknown) (unknown) (no (unknown) (unknown) : 1995 (units (unknown) date) Acct:[id number] unknown) (unknown) (no (unknown) (unknown) Date Patient Seen: (units (unknown) date) 01/15/22 unknown) (unknown) (no (unknown) (unknown) Date Patient Seen: (units (unknown) date) 01/16/22 unknown) (unknown) (no (unknown) (unknown) Date of admission: (units (unknown) date) unknown) (unknown) (no (unknown) (unknown) Deep Vein (units (unkn own) date) Thrombosis/Pulmonary unknown) Embolism Present on Admission: No (unknown) (no (unknown) (unknown) Diet/Activity/Treat (unit s (unknown) date) ments unknown) (unknown) (no (unknown) (unknown) Diet: Full Liquid (units (unknown) date) unknown) (unknown) (no (unknown) (unknown) Discharge Data (units (unknown) date) unknown) (unknown) (no (unknown) (unknown) Discharge Date: (units (unknown) date) 01/16/22 unknown) (unknown) (no (unknown) (unknown) Discharge (units (unkn own) date) Diagnosis: unknown) (unknown) (no (unknown) (unknown) Discharge Plan (units (unknown) date) unknown) (unknown) (no (unknown) (unknown) Discharge Providers (unit s (unknown) date) unknown) (unknown) (no (unknown) (unknown) Discharge orders + (units (unknown) date) Medications unknown) (unknown) (no (unknown) (unknown) Discharge provider: (unit s (unknown) date) unknown) (unknown) (no (unknown) (unknown) Discontinued (units (u nknown) date) unknown) (unknown) (no (unknown) (unknown) Estimated GFR > 60 (unit s (unknown) date) unknown) (unknown) (no (unknown) (unknown) Exam (units (unkno wn) date) unknown) (unknown) (no (unknown) (unknown) Exercise-induced (units (unknown) date) asthma unknown) (unknown) (no (unknown) (unknown) FOR FIBROMYALGIA. (units (unknown) date) unknown) (unknown) (no (unknown) (unknown) Family History (units (unknown) date) (Reviewed 01/16/22 @ unknown) 08:07 by Alli Reed MD) (unknown) (no (unknown) (unknown) Glucose 124 H (units (unknown) date) unknown) (unknown) (no (unknown) (unknown) HAD A COLONOSCOPY (units (unknown) date) WHICH SHOWED DIFFUSE unknown) INFLAMMATORY PROCESS THROUGHOUT THE (unknown) (no (unknown) (unknown) History of Present (units (unknown) date) Illness unknown) (unknown) (no (unknown) (unknown) Hospital Course (units (unknown) date) unknown) (unknown) (no (unknown) (unknown) Hospital Course: (units (unknown) date) unknown) (unknown) (no (unknown) (unknown) INFLAMMATORY BOWEL (units (unknown) date) DISEASE. unknown) GASTROENTERITIS IS NOT SUSPECTED.FURTHER WORKUP (unknown) (no (unknown) (unknown) INTERMITTENTLY (units (unknown) date) NEEDED. unknown) (unknown) (no (unknown) (unknown) Joselyn (units (un known) date) Mere, unknown) (unknown) (no (unknown) (unknown) Chelsea Lebron is a (units (unknown) date) 26-year-old female unknown) with a past history of a lower GI bleed, (unknown) (no (unknown) (unknown) Labs (units (unkno wn) date) unknown) (unknown) (no (unknown) (unknown) Labs: (units (unkno wn) date) unknown) (unknown) (no (unknown) (unknown) Lupus (units (unkno wn) date) unknown) (unknown) (no (unknown) (unknown) Medical History (units (unknown) date) (Reviewed 01/16/22 @ unknown) 08:07 by Alli Reed MD) (unknown) (no (unknown) (unknown) Mother Bowel (units (unknown) date) obstruction unknown) (unknown) (no (unknown) (unknown) Narrative: (units (unk nown) date) unknown) (unknown) (no (unknown) (unknown) Narrative: (units (unk nown) date) unknown) (unknown) (no (unknown) (unknown) New (units (unkno wn) date) unknown) (unknown) (no (unknown) (unknown) Nursing Discharge (units (unknown) date) Comment: F/U WITH unknown) PCP IN 2-3 WEEKS (unknown) (no (unknown) (unknown) OUTPATIENT (units (unk nown) date) unknown) (unknown) (no (unknown) (unknown) Objective (units (unkn own) date) unknown) (unknown) (no (unknown) (unknown) Oxygen Delivery (units (unknown) date) Method Room Air unknown) (unknown) (no (unknown) (unknown) Oxygen Flow Rate (units (unknown) date) 0 unknown) (unknown) (no (unknown) (unknown) PFSH (units (unkno wn) date) unknown) (unknown) (no (unknown) (unknown) PROVIDERS. (units (unk nown) date) unknown) (unknown) (no (unknown) (unknown) Patient (units (unkno wn) date) Disposition: Home unknown) (unknown) (no (unknown) (unknown) Patient: (units (unkno wn) date) StepanChelsea unknown) MR#: [id number] (unknown) (no (unknown) (unknown) Potassium 4.2 (units (unknown) date) unknown) (unknown) (no (unknown) (unknown) Prescriptions: (units (unknown) date) unknown) (unknown) (no (unknown) (unknown) Provider (units (unkno wn) date) unknown) (unknown) (no (unknown) (unknown) Provider: (units (unkn own) date) Luis Severino unknown) chu (unknown) (no (unknown) (unknown) Pulse Oximetry 98 (units (unknown) date) 98 unknown) (unknown) (no (unknown) (unknown) Pulse Rate 71 77 (units (unknown) date) unknown) (unknown) (no (unknown) (unknown) Quality (units (unkno wn) date) unknown) (unknown) (no (unknown) (unknown) Respiratory Rate 18 (unit s (unknown) date) 18 unknown) (unknown) (no (unknown) (unknown) Result Diagrams: (units (unknown) date) unknown) (unknown) (no (unknown) (unknown) SUCH ULCERATIVE (unit s (unknown) date) COLITIS OR CROHN'S. unknown) (unknown) (no (unknown) (unknown) Signed By: (units (unk nown) date) unknown) (unknown) (no (unknown) (unknown) Sister Bowel (units (unknown) date) obstruction unknown) (unknown) (no (unknown) (unknown) Smoking Status: (units (unknown) date) Never smoker unknown) (unknown) (no (unknown) (unknown) Social History (units (unknown) date) (Reviewed 01/15/22 @ unknown) 04:53 by Mario Ashraf DO) (unknown) (no (unknown) (unknown) Sodium 139 (units (un known) date) unknown) (unknown) (no (unknown) (unknown) Summary (units (unkno wn) date) unknown) (unknown) (no (unknown) (unknown) THIS IS A VERY (units (unknown) date) PLEASANT 26-YEAR-OLD unknown) FEMALE FOR PAST MEDICAL HISTORY SIGNIFICANT (unknown) (no (unknown) (unknown) TO MEDICAL (units (unk nown) date) MANAGEMENT. unknown) (unknown) (no (unknown) (unknown) TODAY. (units (unkno wn) date) unknown) (unknown) (no (unknown) (unknown) Temperature 96.8 F (units (unknown) date) L 97.5 F L unknown) (unknown) (no (unknown) (unknown) Time Patient Seen: (units (unknown) date) 03:00 unknown) (unknown) (no (unknown) (unknown) VTE (units (unkno wn) date) unknown) (unknown) (no (unknown) (unknown) Vital Signs (units (un known) date) unknown) (unknown) (no (unknown) (unknown) X-ray acute abdomen (unit s (unknown) date) series was negative, unknown) pelvis ultrasound was negative, CT of (unknown) (no (unknown) (unknown) [Embedded Image Not (unit s (unknown) date) Available] unknown) (unknown) (no (unknown) (unknown) abdominal pain and (units (unknown) date) was seen in the unknown) emergency department on January 09 and (unknown) (no (unknown) (unknown) as melena.? They (units (unknown) date) sent her home with unknown) Mag citrate which she produced of quite a (unknown) (no (unknown) (unknown) associated mild (units (unknown) date) short-segment unknown) dilatation of the distal ileum likely secondary to (unknown) (no (unknown) (unknown) biopsies were (units ( unknown) date) negative.? She unknown) states that her pain is very consistent but has (unknown) (no (unknown) (unknown) bit of stool and (units (unknown) date) has been having unknown) diarrhea ever since.? She went her to her PCP (unknown) (no (unknown) (unknown) colon with (units (unk nown) date) air-fluid levels unknown) representing gastroenteritis or ileus, it noted (unknown) (no (unknown) (unknown) colonic distension, (unit s (unknown) date) she has a unknown) hypervascular lesion in the right hepatic lobe (unknown) (no (unknown) (unknown) colonoscopy and (units (unknown) date) endoscopy and it was unknown) found to have an inflamed colon but the (unknown) (no (unknown) (unknown) diagnosed with (units (unknown) date) obstipation.? At unknown) that time she complained of hematemesis as well (unknown) (no (unknown) (unknown) for follow-up and (units (unknown) date) was found to still unknown) be constipated.? In November she underwent (unknown) (no (unknown) (unknown) kg with a BMI of (units (unknown) date) 29.3 unknown) (unknown) (no (unknown) (unknown) lupus, colon (units (u nknown) date) polyps, and unknown) abdominal pain has had a several day history of severe (unknown) (no (unknown) (unknown) or changes in bowel (unit s (unknown) date) or bladder control. unknown) (unknown) (no (unknown) (unknown) rate 106, (units (unkn own) date) respiratory rate 16, unknown) oxygen saturation 98% on room air she weighs 75 (unknown) (no (unknown) (unknown) representing a (units ( unknown) date) hemangioma.? Patient unknown) is afebrile, blood pressure is 122/75, heart (unknown) (no (unknown) (unknown) sharp shooting (units (unknown) date) pains in the unknown) meantime.? She has a history of an appendectomy in (unknown) (no (unknown) (unknown) the abdomen and (units (unknown) date) pelvis did indicate unknown) findings of fluid distention throughout the Result panel 30 (unknown) (no (unknown) (unknown) (no value) (units (unk nown) date) unknown) (unknown) (no (unknown) (unknown) Date of Service: (units (unknown) date) 01/15/22 unknown) (unknown) (no (unknown) (unknown) (no value) (units (unk nown) date) unknown) (unknown) (no (unknown) (unknown) - (units (unkno wn) date) unknown) (unknown) (no (unknown) (unknown) 01/15/22 05:41 (units (unknown) date) unknown) (unknown) (no (unknown) (unknown) 01/16/22 05:10 (units (unknown) date) unknown) (unknown) (no (unknown) (unknown) 1 g PO QACHS Qty: (units (unknown) date) 120 4RF unknown) (unknown) (no (unknown) (unknown) 10 mg PO (units (un known) date) DIRECTED Qty: 120 unknown) 1RF (unknown) (no (unknown) (unknown) 10 mg PO TID PRN (units (unknown) date) (Reason: muscle unknown) spasm) Qty: 12 0RF (unknown) (no (unknown) (unknown) 10MG PO X 7 DAYS (units (unknown) date) unknown) (unknown) (no (unknown) (unknown) 150 mg PO DAILY 0RF (unit s (unknown) date) unknown) (unknown) (no (unknown) (unknown) 15MG PO X 7 DAYS (units (unknown) date) unknown) (unknown) (no (unknown) (unknown) 2 puff INHALATION (units (unknown) date) Q4-6H PRN (Reason: unknown) shortness of breath) Qty: 18 0RF (unknown) (no (unknown) (unknown) 20 mg PO BID 0RF (units (unknown) date) unknown) (unknown) (no (unknown) (unknown) 20MG PO X 7 DAYS (units (unknown) date) unknown) (unknown) (no (unknown) (unknown) 25MG PO X 7 DAYS (units (unknown) date) unknown) (unknown) (no (unknown) (unknown) 30MG PO X 7 DAYS (units (unknown) date) unknown) (unknown) (no (unknown) (unknown) 35MG PO X 7 DAYS (units (unknown) date) unknown) (unknown) (no (unknown) (unknown) 4 mg orally (units (un known) date) unknown) (unknown) (no (unknown) (unknown) 40 mg PO BID Qty: (units (unknown) date) 60 4RF unknown) (unknown) (no (unknown) (unknown) 40 mg PO DAILY 0RF (units (unknown) date) unknown) (unknown) (no (unknown) (unknown) 40MG PO X 7 DAYS (units (unknown) date) unknown) (unknown) (no (unknown) (unknown) 45MG PO X 7 DAYS (units (unknown) date) unknown) (unknown) (no (unknown) (unknown) 5 mg PO Q8H PRN (units (unknown) date) (Reason: pain) Qty: unknown) 10 0RF (unknown) (no (unknown) (unknown) 50 mg PO Q4H PRN (units (unknown) date) (Reason: pain) Qty: unknown) 30 0RF (unknown) (no (unknown) (unknown) 50MG PO X 7 DAYS (units (unknown) date) unknown) (unknown) (no (unknown) (unknown) 55MG PO X 7 DAYS (units (unknown) date) unknown) (unknown) (no (unknown) (unknown) 5MG PO X 7 DAYS (units (unknown) date) unknown) (unknown) (no (unknown) (unknown) 60MG PO X 7 DAYS (units (unknown) date) unknown) (unknown) (no (unknown) (unknown) Comment: (units (unkno wn) date) unknown) (unknown) (no (unknown) (unknown) Consulting (units (unk nown) date) Provider: unknown) Alli Reed (unknown) (no (unknown) (unknown) DISSOLVE ONE TABLET (unit s (unknown) date) IN MOUTH EVERY 8 unknown) HOURS NEEDED FOR NAUSEA AND VOMITING (unknown) (no (unknown) (unknown) Discharge Summary (units (unknown) date) unknown) (unknown) (no (unknown) (unknown) HER PAIN (units (unkno wn) date) SIGNIFICANTLY unknown) IMPROVED WHILE ON STEROIDS. (unknown) (no (unknown) (unknown) Has provider been (units (unknown) date) notified: No unknown) (unknown) (no (unknown) (unknown) [facility] (units (unknown) date) [address] [place] [address] unknown) [place] [address] (unknown) (no (unknown) (unknown) Label Comments: (units (unknown) date) unknown) (unknown) (no (unknown) (unknown) Laboratory Results (units (unknown) date) - last 24 hr unknown) (unknown) (no (unknown) (unknown) Reason for (units (unk nown) date) consultation: severe unknown) abdominal pain (unknown) (no (unknown) (unknown) Rx Instructions: (units (unknown) date) unknown) (unknown) (no (unknown) (unknown) See Rx Instructions (unit s (unknown) date) .ROUTE .COMPLEX MDD unknown) 12 MG PRN (Reason: Nausea) 0RF (unknown) (no (unknown) (unknown) TAKE ONE TABLET BY (units (unknown) date) MOUTH ONE TIME DAILY unknown) (unknown) (no (unknown) (unknown) (no value) (units (unk nown) date) unknown) (unknown) (no (unknown) (unknown) 01/16/22 (units (unkno wn) date) unknown) (unknown) (no (unknown) (unknown) 05:10 (units (unkno wn) date) unknown) (unknown) (no (unknown) (unknown) A REFERRAL TO A (units (unknown) date) HEADWAITRESS AT THE unknown) [facility] F[facility] WITH ADEQUATE (unknown) (no (unknown) (unknown) AVOID RED MEAT (units (unknown) date) FOR THE NEXT FEW unknown) WEEKS. (unknown) (no (unknown) (unknown) FOLLOW-UP WITH (units (unknown) date) PRIMARY CARE unknown) RECOMMENDED WITHIN 2-4 WEEKS. 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 (unknown) (no (unknown) (unknown) HOWEVER BIOPSY (units (unknown) date) TAKEN DID NOT SHOW unknown) TYPICAL SIGN OF INFLAMMATORY BOWEL DISEASE (unknown) (no (unknown) (unknown) IN THE MEANWHILE, (units (unknown) date) SHE WAS TREATED WITH unknown) STEROIDS HERE AND RESPONDED VERY WELL (unknown) (no (unknown) (unknown) INSTRUCTIONS (units (u nknown) date) unknown) (unknown) (no (unknown) (unknown) OTHERWISE SHE IS (units (unknown) date) STABLE AT THIS TIME unknown) CLINICALLY. SHE WILL BE DISCHARGED (unknown) (no (unknown) (unknown) PATIENT ALSO (units (u nknown) date) RECOMMENDED TO unknown) REMAIN ON A FULL LIQUID DIET VERSUS GI SOFT TO (unknown) (no (unknown) (unknown) PATIENT REPORTEDLY (units (unknown) date) HAS BEEN HAVING unknown) SIGNIFICANT ISSUES WITH ABDOMINAL PAIN AND (unknown) (no (unknown) (unknown) SHE CONTINUED TO (units (unknown) date) HAVE RECURRING PAIN. unknown) ALSO REPORTED FREQUENT BOUT OF LOOSE (unknown) (no (unknown) (unknown) SHE WILL BE (units (un known) date) DISCHARGED ON ALLOW unknown) ON TAPER DOSE OF PREDNISONE. (unknown) (no (unknown) (unknown) THIS WILL GO ON FOR (unit s (unknown) date) THE NEXT 8 WEEKS OR unknown) SO OR UNTIL STOP BY HER OUTPATIENT (unknown) (no (unknown) (unknown) TRAMADOL WILL BE (units (unknown) date) ORDERED BREAKTHROUGH unknown) PAIN ALSO. (unknown) (no (unknown) (unknown) albuterol sulfate (units (unknown) date) 90 mcg/actuation HFA unknown) aerosol inhaler (unknown) (no (unknown) (unknown) cyclobenzaprine 10 (units (unknown) date) mg tablet unknown) (unknown) (no (unknown) (unknown) famotidine 40 mg (units (unknown) date) tablet unknown) (unknown) (no (unknown) (unknown) ondansetron 4 mg (units (unknown) date) tablet,disintegratin unknown) g (unknown) (no (unknown) (unknown) oxycodone 5 mg (units (unknown) date) tablet unknown) (unknown) (no (unknown) (unknown) pantoprazole 40 mg (units (unknown) date) tablet,delayed unknown) release (DR/EC) (unknown) (no (unknown) (unknown) prednisone 10 mg (units (unknown) date) tablet unknown) (unknown) (no (unknown) (unknown) sucralfate 1 gram (units (unknown) date) tablet unknown) (unknown) (no (unknown) (unknown) tramadol 50 mg (units (unknown) date) tablet unknown) (unknown) (no (unknown) (unknown) venlafaxine 150 mg (units (unknown) date) capsule,extended unknown) release 24hr (unknown) (no (unknown) (unknown) 01/16/22 (units (unkno wn) date) unknown) (unknown) (no (unknown) (unknown) ABDOMINAL PAIN. (units (unknown) date) LIKELY ASSOCIATED unknown) WITH INFLAMMATORY BOWEL SYNDROME VERSUS (unknown) (no (unknown) (unknown) ACTIVITIES (units ( unknown) date) TOLERATED unknown) (unknown) (no (unknown) (unknown) AVOID ALCOHOL (units ( unknown) date) PRODUCTS unknown) (unknown) (no (unknown) (unknown) AVOID TOBACCO (units ( unknown) date) PRODUCTS unknown) (unknown) (no (unknown) (unknown) FIBROMYALGIA PER (units (unknown) date) HISTORY unknown) (unknown) (no (unknown) (unknown) FOLLOW WITH PRIMARY (unit s (unknown) date) CARE PHYSICIAN OR unknown) RN ADMIT WITHIN 2-4 WEEKS (unknown) (no (unknown) (unknown) FULL LIQUID VERSUS (units (unknown) date) GI SOFT DIET unknown) (unknown) (no (unknown) (unknown) OVERWEIGHT WITH A (units (unknown) date) BMI OF 29. unknown) LIFESTYLE CHANGES RECOMMENDED (unknown) (no (unknown) (unknown) PATIENT ALSO (units (u nknown) date) DISCHARGED ON unknown) PROTONIX B.I.D. WITH CARAFATE ADDED. (unknown) (no (unknown) (unknown) PEPTIC ULCER (units (u nknown) date) DISEASE VERSUS ACID unknown) REFLUX DISEASE PER HISTORY (unknown) (no (unknown) (unknown) REACTIVE (units (unkno wn) date) HYPERGLYCEMIA unknown) (unknown) (no (unknown) (unknown) REPORT BLACK TARRY (units (unknown) date) STOOL OR ANY BLOOD unknown) IN THE SPUTUM (unknown) (no (unknown) (unknown) SHE WAS ADVICE TO (units (unknown) date) TAKE NSAID IN unknown) COMBINATION WITH TYLENOL OTC FOR PAIN (unknown) (no (unknown) (unknown) TAKE MEDICATION (units (unknown) date) PRESCRIBED ONLY unknown) (unknown) (no (unknown) (unknown) (past 8 hours): (units (unknown) date) unknown) (unknown) (no (unknown) (unknown) [id number] (units (unkno wn) date) unknown) (unknown) (no (unknown) (unknown) 01/15/22 00:58 (units (unknown) date) unknown) (unknown) (no (unknown) (unknown) 01/15/22 03:03 (units (unknown) date) unknown) (unknown) (no (unknown) (unknown) 05:35 01/16/22 (units (unknown) date) unknown) (unknown) (no (unknown) (unknown) 07:00 (units (unkno wn) date) unknown) (unknown) (no (unknown) (unknown) 2020.? She denies (units (unknown) date) fevers sweats, unknown) denies shortness of breath, chest pain, dysuria (unknown) (no (unknown) (unknown) ABDOMEN: SOFT. (units (unknown) date) NONTENDER. unknown) NONDISTENDED. BOWEL SOUNDS ARE PRESENT IN ALL 4 (unknown) (no (unknown) (unknown) ALLOW FOR PROPER (units (unknown) date) BOWEL REST. unknown) (unknown) (no (unknown) (unknown) AVAILABLE RESOURCES (unit s (unknown) date) TO MAKE FOR unknown) DIAGNOSIS IS RECOMMENDED. (unknown) (no (unknown) (unknown) Activity: (units (u nknown) date) TOLERATED unknown) (unknown) (no (unknown) (unknown) Age/Sex: 26 / F (units (unknown) date) unknown) (unknown) (no (unknown) (unknown) Anxiety (units (unkno wn) date) unknown) (unknown) (no (unknown) (unknown) Attending Provider: (unit s (unknown) date) Radha House unknown) (unknown) (no (unknown) (unknown) BOWEL MOVEMENTS (units (unknown) date) unknown) (unknown) (no (unknown) (unknown) BUN 10 (units (unkno wn) date) unknown) (unknown) (no (unknown) (unknown) BUN/Creatinine (units (unknown) date) Ratio 16.4 unknown) (unknown) (no (unknown) (unknown) Blood Pressure (units (unknown) date) 114/78 114/69 unknown) (unknown) (no (unknown) (unknown) CHEST: REGULAR (units (unknown) date) RATE. NO RUBS. unknown) PMI IS NON DISPLACED. NO MURMURS; NORMAL S1- (unknown) (no (unknown) (unknown) COLON. (units (unkno wn) date) unknown) (unknown) (no (unknown) (unknown) Calcium 9.2 (units (u nknown) date) unknown) (unknown) (no (unknown) (unknown) Carbon Dioxide 25 (units (unknown) date) unknown) (unknown) (no (unknown) (unknown) Chief complaint: (units (unknown) date) Lower abdominal unknown) pain, hematemasis melana (unknown) (no (unknown) (unknown) Chloride 106 (units ( unknown) date) unknown) (unknown) (no (unknown) (unknown) Cognitive/behaviora (unit s (unknown) date) l status at unknown) discharge: oriented (unknown) (no (unknown) (unknown) Consult to (units (unk nown) date) Physician Routine unknown) (unknown) (no (unknown) (unknown) Consults: (units (unkn own) date) unknown) (unknown) (no (unknown) (unknown) Continued (units (unkn own) date) unknown) (unknown) (no (unknown) (unknown) Creatinine 0.61 (units (unknown) date) unknown) (unknown) (no (unknown) (unknown) : 1995 (units (unknown) date) Acct:[id number] unknown) (unknown) (no (unknown) (unknown) Date Patient Seen: (units (unknown) date) 01/15/22 unknown) (unknown) (no (unknown) (unknown) Date Patient Seen: (units (unknown) date) 01/16/22 unknown) (unknown) (no (unknown) (unknown) Date of admission: (units (unknown) date) unknown) (unknown) (no (unknown) (unknown) Deep Vein (units (unkn own) date) Thrombosis/Pulmonary unknown) Embolism Present on Admission: No (unknown) (no (unknown) (unknown) Diet/Activity/Treat (unit s (unknown) date) ments unknown) (unknown) (no (unknown) (unknown) Diet: Full Liquid (units (unknown) date) unknown) (unknown) (no (unknown) (unknown) Discharge Data (units (unknown) date) unknown) (unknown) (no (unknown) (unknown) Discharge Date: (units (unknown) date) 01/16/22 unknown) (unknown) (no (unknown) (unknown) Discharge (units (unkn own) date) Diagnosis: unknown) (unknown) (no (unknown) (unknown) Discharge Plan (units (unknown) date) unknown) (unknown) (no (unknown) (unknown) Discharge Providers (unit s (unknown) date) unknown) (unknown) (no (unknown) (unknown) Discharge orders + (units (unknown) date) Medications unknown) (unknown) (no (unknown) (unknown) Discharge provider: (unit s (unknown) date) unknown) (unknown) (no (unknown) (unknown) Discontinued (units (u nknown) date) unknown) (unknown) (no (unknown) (unknown) EXTREMITIES: NO (units (unknown) date) EDEMA.. NO CYANOSIS unknown) CLUBBING NOTED. (unknown) (no (unknown) (unknown) EYE: EOMI, PERRLA, (unit s (unknown) date) NORMAL CONJUNCTIVA; unknown) NO JAUNDICE (unknown) (no (unknown) (unknown) Estimated GFR > 60 (unit s (unknown) date) unknown) (unknown) (no (unknown) (unknown) Exam (units (unkno wn) date) unknown) (unknown) (no (unknown) (unknown) Exam Narrative: (units (unknown) date) unknown) (unknown) (no (unknown) (unknown) Exercise-induced (units (unknown) date) asthma unknown) (unknown) (no (unknown) (unknown) FOR FIBROMYALGIA. (units (unknown) date) unknown) (unknown) (no (unknown) (unknown) Family History (units (unknown) date) (Reviewed 01/16/22 @ unknown) 08:07 by Alli Reed MD) (unknown) (no (unknown) (unknown) Functional status (units (unknown) date) at discharge: unknown) independent ambulation (unknown) (no (unknown) (unknown) : NORMAL (units (u nknown) date) EXTERNAL GENITALIA. unknown) (unknown) (no (unknown) (unknown) Glucose 124 H (units (unknown) date) unknown) (unknown) (no (unknown) (unknown) HAD A COLONOSCOPY (units (unknown) date) WHICH SHOWED DIFFUSE unknown) INFLAMMATORY PROCESS THROUGHOUT THE (unknown) (no (unknown) (unknown) HEAD ATRAUMATIC (units (unknown) date) NORMOCEPHALIC unknown) (unknown) (no (unknown) (unknown) History of Present (units (unknown) date) Illness unknown) (unknown) (no (unknown) (unknown) Hospital Course (units (unknown) date) unknown) (unknown) (no (unknown) (unknown) Hospital Course: (units (unknown) date) unknown) (unknown) (no (unknown) (unknown) INCREASED DULLNESS (units (unknown) date) TO PERCUSSION unknown) (unknown) (no (unknown) (unknown) INFLAMMATORY BOWEL (units (unknown) date) DISEASE. unknown) GASTROENTERITIS IS NOT SUSPECTED.FURTHER WORKUP (unknown) (no (unknown) (unknown) INTERMITTENTLY (units (unknown) date) NEEDED. unknown) (unknown) (no (unknown) (unknown) Joselyn (units (un known) date) Nicci-Melisar, DO unknown) (unknown) (no (unknown) (unknown) Chelsea Lebron is a (units (unknown) date) 26-year-old female unknown) with a past history of a lower GI bleed, (unknown) (no (unknown) (unknown) Labs (units (unkno wn) date) unknown) (unknown) (no (unknown) (unknown) Labs: (units (unkno wn) date) unknown) (unknown) (no (unknown) (unknown) Lupus (units (unkno wn) date) unknown) (unknown) (no (unknown) (unknown) MSK: NORMAL RANGE (units (unknown) date) OF MOTION FOR AGE. unknown) NO JOINT EFFUSION. (unknown) (no (unknown) (unknown) Medical History (units (unknown) date) (Reviewed 01/16/22 @ unknown) 08:07 by Alli Reed MD) (unknown) (no (unknown) (unknown) Mother Bowel (units (unknown) date) obstruction unknown) (unknown) (no (unknown) (unknown) NECK : SUPPLE (units ( unknown) date) WITHOUT ADENOPATHY unknown) NO CAROTID BRUITS (unknown) (no (unknown) (unknown) NEURO: CRANIAL (units (unknown) date) NERVES 2-12 GROSSLY unknown) INTACT. NO FOCAL NEUROLOGICAL DEFICIT NOTED. (unknown) (no (unknown) (unknown) NO ACUTE DISTRESS. (units (unknown) date) PATIENT IS ALERT unknown) ORIENTED X3. (unknown) (no (unknown) (unknown) Narrative (units (unkn own) date) unknown) (unknown) (no (unknown) (unknown) Narrative: (units (unk nown) date) unknown) (unknown) (no (unknown) (unknown) Narrative: (units (unk nown) date) unknown) (unknown) (no (unknown) (unknown) New (units (unkno wn) date) unknown) (unknown) (no (unknown) (unknown) Nursing Discharge (units (unknown) date) Comment: F/U WITH unknown) PCP IN 2-3 WEEKS (unknown) (no (unknown) (unknown) OUTPATIENT (units (unk nown) date) unknown) (unknown) (no (unknown) (unknown) Objective (units (unkn own) date) unknown) (unknown) (no (unknown) (unknown) Overall status at (units (unknown) date) discharge: patient unknown) is back to baseline (unknown) (no (unknown) (unknown) Oxygen Delivery (units (unknown) date) Method Room Air unknown) (unknown) (no (unknown) (unknown) Oxygen Flow Rate (units (unknown) date) 0 unknown) (unknown) (no (unknown) (unknown) PFSH (units (unkno wn) date) unknown) (unknown) (no (unknown) (unknown) PROVIDERS. (units (unk nown) date) unknown) (unknown) (no (unknown) (unknown) PSYCH : (units (unkno wn) date) APPROPRIATE MOOD AND unknown) AFFECT. ALERT AWAKE ORIENTED X3 (unknown) (no (unknown) (unknown) PULMONARY: (units (unk nown) date) DECREASED BS OVER unknown) THE BASES. MILD BIBASILAR CRACKLES NOTED; NO (unknown) (no (unknown) (unknown) Patient (units (unkno wn) date) Disposition: Home unknown) (unknown) (no (unknown) (unknown) Patient: (units (unkno wn) date) Chelsea Lebron unknown) MR#: [id number] (unknown) (no (unknown) (unknown) Potassium 4.2 (units (unknown) date) unknown) (unknown) (no (unknown) (unknown) Prescriptions: (units (unknown) date) unknown) (unknown) (no (unknown) (unknown) Provider (units (unkno wn) date) unknown) (unknown) (no (unknown) (unknown) Provider: (units (unkn own) date) Luis Severino unknown) chu (unknown) (no (unknown) (unknown) Pulse Oximetry 98 (units (unknown) date) 98 unknown) (unknown) (no (unknown) (unknown) Pulse Rate 71 77 (units (unknown) date) unknown) (unknown) (no (unknown) (unknown) QUADRANTS. NO (units (unknown) date) MASS. unknown) (unknown) (no (unknown) (unknown) Quality (units (unkno wn) date) unknown) (unknown) (no (unknown) (unknown) RASHES (units (unkno wn) date) unknown) (unknown) (no (unknown) (unknown) Respiratory Rate 18 (unit s (unknown) date) 18 unknown) (unknown) (no (unknown) (unknown) Result Diagrams: (units (unknown) date) unknown) (unknown) (no (unknown) (unknown) S2 (units (unkno wn) date) unknown) (unknown) (no (unknown) (unknown) SKIN: NORMAL FOR (units (unknown) date) ETHNICITY; NO unknown) ECCHYMOSIS. NO LESION. GOOD TURGOR.; NO (unknown) (no (unknown) (unknown) SUCH ULCERATIVE (unit s (unknown) date) COLITIS OR CROHN'S. unknown) (unknown) (no (unknown) (unknown) Signed By: (units (unk nown) date) unknown) (unknown) (no (unknown) (unknown) Sister Bowel (units (unknown) date) obstruction unknown) (unknown) (no (unknown) (unknown) Smoking Status: (units (unknown) date) Never smoker unknown) (unknown) (no (unknown) (unknown) Social History (units (unknown) date) (Reviewed 01/15/22 @ unknown) 04:53 by Mario Ashraf DO) (unknown) (no (unknown) (unknown) Sodium 139 (units (un known) date) unknown) (unknown) (no (unknown) (unknown) Status at Discharge (unit s (unknown) date) unknown) (unknown) (no (unknown) (unknown) Summary (units (unkno wn) date) unknown) (unknown) (no (unknown) (unknown) THIS IS A VERY (units (unknown) date) PLEASANT 26-YEAR-OLD unknown) FEMALE FOR PAST MEDICAL HISTORY SIGNIFICANT (unknown) (no (unknown) (unknown) TO MEDICAL (units (unk nown) date) MANAGEMENT. unknown) (unknown) (no (unknown) (unknown) TODAY. (units (unkno wn) date) unknown) (unknown) (no (unknown) (unknown) Temperature 96.8 F (units (unknown) date) L 97.5 F L unknown) (unknown) (no (unknown) (unknown) Time Patient Seen: (units (unknown) date) 03:00 unknown) (unknown) (no (unknown) (unknown) Time Spent with (units (unknown) date) Patient unknown) (unknown) (no (unknown) (unknown) Time spent: Greater (unit s (unknown) date) than 30 minutes unknown) (unknown) (no (unknown) (unknown) VITAL SIGNS STABLE (units (unknown) date) unknown) (unknown) (no (unknown) (unknown) VTE (units (unkno wn) date) unknown) (unknown) (no (unknown) (unknown) Vital Signs (units (un known) date) unknown) (unknown) (no (unknown) (unknown) X-ray acute abdomen (unit s (unknown) date) series was negative, unknown) pelvis ultrasound was negative, CT of (unknown) (no (unknown) (unknown) [Embedded Image Not (unit s (unknown) date) Available] unknown) (unknown) (no (unknown) (unknown) abdominal pain and (units (unknown) date) was seen in the unknown) emergency department on January 09 and (unknown) (no (unknown) (unknown) as melena.? They (units (unknown) date) sent her home with unknown) Mag citrate which she produced of quite a (unknown) (no (unknown) (unknown) associated mild (units (unknown) date) short-segment unknown) dilatation of the distal ileum likely secondary to (unknown) (no (unknown) (unknown) biopsies were (units ( unknown) date) negative.? She unknown) states that her pain is very consistent but has (unknown) (no (unknown) (unknown) bit of stool and (units (unknown) date) has been having unknown) diarrhea ever since.? She went her to her PCP (unknown) (no (unknown) (unknown) colon with (units (unk nown) date) air-fluid levels unknown) representing gastroenteritis or ileus, it noted (unknown) (no (unknown) (unknown) colonic distension, (unit s (unknown) date) she has a unknown) hypervascular lesion in the right hepatic lobe (unknown) (no (unknown) (unknown) colonoscopy and (units (unknown) date) endoscopy and it was unknown) found to have an inflamed colon but the (unknown) (no (unknown) (unknown) diagnosed with (units (unknown) date) obstipation.? At unknown) that time she complained of hematemesis as well (unknown) (no (unknown) (unknown) for follow-up and (units (unknown) date) was found to still unknown) be constipated.? In November she underwent (unknown) (no (unknown) (unknown) kg with a BMI of (units (unknown) date) 29.3 unknown) (unknown) (no (unknown) (unknown) lupus, colon (units (u nknown) date) polyps, and unknown) abdominal pain has had a several day history of severe (unknown) (no (unknown) (unknown) or changes in bowel (unit s (unknown) date) or bladder control. unknown) (unknown) (no (unknown) (unknown) rate 106, (units (unkn own) date) respiratory rate 16, unknown) oxygen saturation 98% on room air she weighs 75 (unknown) (no (unknown) (unknown) representing a (units ( unknown) date) hemangioma.? Patient unknown) is afebrile, blood pressure is 122/75, heart (unknown) (no (unknown) (unknown) sharp shooting (units (unknown) date) pains in the unknown) meantime.? She has a history of an appendectomy in (unknown) (no (unknown) (unknown) the abdomen and (units (unknown) date) pelvis did indicate unknown) findings of fluid distention throughout the Result panel 31 (unknown) (no (unknown) (unknown) (no value) (units (unk nown) date) unknown) (unknown) (no (unknown) (unknown) Date of Service: (units (unknown) date) 01/15/22 unknown) (unknown) (no (unknown) (unknown) (no value) (units (unk nown) date) unknown) (unknown) (no (unknown) (unknown) - (units (unkno wn) date) unknown) (unknown) (no (unknown) (unknown) 01/15/22 05:41 (units (unknown) date) unknown) (unknown) (no (unknown) (unknown) 01/16/22 05:10 (units (unknown) date) unknown) (unknown) (no (unknown) (unknown) 1 g PO QACHS Qty: (units (unknown) date) 120 4RF unknown) (unknown) (no (unknown) (unknown) 10 mg PO (units (un known) date) DIRECTED Qty: 120 unknown) 1RF (unknown) (no (unknown) (unknown) 10 mg PO TID PRN (units (unknown) date) (Reason: muscle unknown) spasm) Qty: 12 0RF (unknown) (no (unknown) (unknown) 10MG PO X 7 DAYS (units (unknown) date) unknown) (unknown) (no (unknown) (unknown) 150 mg PO DAILY 0RF (unit s (unknown) date) unknown) (unknown) (no (unknown) (unknown) 15MG PO X 7 DAYS (units (unknown) date) unknown) (unknown) (no (unknown) (unknown) 2 puff INHALATION (units (unknown) date) Q4-6H PRN (Reason: unknown) shortness of breath) Qty: 18 0RF (unknown) (no (unknown) (unknown) 20 mg PO BID 0RF (units (unknown) date) unknown) (unknown) (no (unknown) (unknown) 20MG PO X 7 DAYS (units (unknown) date) unknown) (unknown) (no (unknown) (unknown) 25MG PO X 7 DAYS (units (unknown) date) unknown) (unknown) (no (unknown) (unknown) 30MG PO X 7 DAYS (units (unknown) date) unknown) (unknown) (no (unknown) (unknown) 35MG PO X 7 DAYS (units (unknown) date) unknown) (unknown) (no (unknown) (unknown) 4 mg orally (units (un known) date) unknown) (unknown) (no (unknown) (unknown) 40 mg PO BID Qty: (units (unknown) date) 60 4RF unknown) (unknown) (no (unknown) (unknown) 40 mg PO DAILY 0RF (units (unknown) date) unknown) (unknown) (no (unknown) (unknown) 40MG PO X 7 DAYS (units (unknown) date) unknown) (unknown) (no (unknown) (unknown) 45MG PO X 7 DAYS (units (unknown) date) unknown) (unknown) (no (unknown) (unknown) 5 mg PO Q8H PRN (units (unknown) date) (Reason: pain) Qty: unknown) 10 0RF (unknown) (no (unknown) (unknown) 50 mg PO Q4H PRN (units (unknown) date) (Reason: pain) Qty: unknown) 30 0RF (unknown) (no (unknown) (unknown) 50MG PO X 7 DAYS (units (unknown) date) unknown) (unknown) (no (unknown) (unknown) 55MG PO X 7 DAYS (units (unknown) date) unknown) (unknown) (no (unknown) (unknown) 5MG PO X 7 DAYS (units (unknown) date) unknown) (unknown) (no (unknown) (unknown) 60MG PO X 7 DAYS (units (unknown) date) unknown) (unknown) (no (unknown) (unknown) Comment: (units (unkno wn) date) unknown) (unknown) (no (unknown) (unknown) Consulting (units (unk nown) date) Provider: unknown) Alli Reed (unknown) (no (unknown) (unknown) DISSOLVE ONE TABLET (unit s (unknown) date) IN MOUTH EVERY 8 unknown) HOURS NEEDED FOR NAUSEA AND VOMITING (unknown) (no (unknown) (unknown) Discharge Summary (units (unknown) date) unknown) (unknown) (no (unknown) (unknown) HER PAIN (units (unkno wn) date) SIGNIFICANTLY unknown) IMPROVED WHILE ON STEROIDS. (unknown) (no (unknown) (unknown) Has provider been (units (unknown) date) notified: No unknown) (unknown) (no (unknown) (unknown) [facility] (units (unknown) date) [address] [place] [address] unknown) [place] [address] (unknown) (no (unknown) (unknown) Label Comments: (units (unknown) date) unknown) (unknown) (no (unknown) (unknown) Laboratory Results (units (unknown) date) - last 24 hr unknown) (unknown) (no (unknown) (unknown) Reason for (units (unk nown) date) consultation: severe unknown) abdominal pain (unknown) (no (unknown) (unknown) Rx Instructions: (units (unknown) date) unknown) (unknown) (no (unknown) (unknown) See Rx Instructions (unit s (unknown) date) .ROUTE .COMPLEX MDD unknown) 12 MG PRN (Reason: Nausea) 0RF (unknown) (no (unknown) (unknown) TAKE ONE TABLET BY (units (unknown) date) MOUTH ONE TIME DAILY unknown) (unknown) (no (unknown) (unknown) (no value) (units (unk nown) date) unknown) (unknown) (no (unknown) (unknown) 01/16/22 (units (unkno wn) date) unknown) (unknown) (no (unknown) (unknown) 05:10 (units (unkno wn) date) unknown) (unknown) (no (unknown) (unknown) A REFERRAL TO A (units (unknown) date) HEADWAITRESS AT THE unknown) TE[facility]ING [facility] FACILITY WITH ADEQUATE (unknown) (no (unknown) (unknown) AVOID RED MEAT (units (unknown) date) FOR THE NEXT FEW unknown) WEEKS. (unknown) (no (unknown) (unknown) FOLLOW-UP WITH (units (unknown) date) PRIMARY CARE unknown) RECOMMENDED WITHIN 2-4 WEEKS. 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 (unknown) (no (unknown) (unknown) HOWEVER BIOPSY (units (unknown) date) TAKEN DID NOT SHOW unknown) TYPICAL SIGN OF INFLAMMATORY BOWEL DISEASE (unknown) (no (unknown) (unknown) IN THE MEANWHILE, (units (unknown) date) SHE WAS TREATED WITH unknown) STEROIDS HERE AND RESPONDED VERY WELL (unknown) (no (unknown) (unknown) INSTRUCTIONS (units (u nknown) date) unknown) (unknown) (no (unknown) (unknown) OTHERWISE SHE IS (units (unknown) date) STABLE AT THIS TIME unknown) CLINICALLY. SHE WILL BE DISCHARGED (unknown) (no (unknown) (unknown) PATIENT ALSO (units (u nknown) date) RECOMMENDED TO unknown) REMAIN ON A FULL LIQUID DIET VERSUS GI SOFT TO (unknown) (no (unknown) (unknown) PATIENT REPORTEDLY (units (unknown) date) HAS BEEN HAVING unknown) SIGNIFICANT ISSUES WITH ABDOMINAL PAIN AND (unknown) (no (unknown) (unknown) SHE CONTINUED TO (units (unknown) date) HAVE RECURRING PAIN. unknown) ALSO REPORTED FREQUENT BOUT OF LOOSE (unknown) (no (unknown) (unknown) SHE WILL BE (units (un known) date) DISCHARGED ON ALLOW unknown) ON TAPER DOSE OF PREDNISONE. (unknown) (no (unknown) (unknown) THIS WILL GO ON FOR (unit s (unknown) date) THE NEXT 8 WEEKS OR unknown) SO OR UNTIL STOP BY HER OUTPATIENT (unknown) (no (unknown) (unknown) TRAMADOL WILL BE (units (unknown) date) ORDERED BREAKTHROUGH unknown) PAIN ALSO. (unknown) (no (unknown) (unknown) albuterol sulfate (units (unknown) date) 90 mcg/actuation HFA unknown) aerosol inhaler (unknown) (no (unknown) (unknown) cyclobenzaprine 10 (units (unknown) date) mg tablet unknown) (unknown) (no (unknown) (unknown) famotidine 40 mg (units (unknown) date) tablet unknown) (unknown) (no (unknown) (unknown) ondansetron 4 mg (units (unknown) date) tablet,disintegratin unknown) g (unknown) (no (unknown) (unknown) oxycodone 5 mg (units (unknown) date) tablet unknown) (unknown) (no (unknown) (unknown) pantoprazole 40 mg (units (unknown) date) tablet,delayed unknown) release (DR/EC) (unknown) (no (unknown) (unknown) prednisone 10 mg (units (unknown) date) tablet unknown) (unknown) (no (unknown) (unknown) sucralfate 1 gram (units (unknown) date) tablet unknown) (unknown) (no (unknown) (unknown) tramadol 50 mg (units (unknown) date) tablet unknown) (unknown) (no (unknown) (unknown) venlafaxine 150 mg (units (unknown) date) capsule,extended unknown) release 24hr (unknown) (no (unknown) (unknown) 01/16/22 (units (unkno wn) date) unknown) (unknown) (no (unknown) (unknown) ABDOMINAL PAIN. (units (unknown) date) LIKELY ASSOCIATED unknown) WITH INFLAMMATORY BOWEL SYNDROME VERSUS (unknown) (no (unknown) (unknown) ACTIVITIES (units ( unknown) date) TOLERATED unknown) (unknown) (no (unknown) (unknown) AVOID ALCOHOL (units ( unknown) date) PRODUCTS unknown) (unknown) (no (unknown) (unknown) AVOID TOBACCO (units ( unknown) date) PRODUCTS unknown) (unknown) (no (unknown) (unknown) FIBROMYALGIA PER (units (unknown) date) HISTORY unknown) (unknown) (no (unknown) (unknown) FOLLOW WITH PRIMARY (unit s (unknown) date) CARE PHYSICIAN OR unknown) RN ADMIT WITHIN 2-4 WEEKS (unknown) (no (unknown) (unknown) FULL LIQUID VERSUS (units (unknown) date) GI SOFT DIET unknown) (unknown) (no (unknown) (unknown) OVERWEIGHT WITH A (units (unknown) date) BMI OF 29. unknown) LIFESTYLE CHANGES RECOMMENDED (unknown) (no (unknown) (unknown) PATIENT ALSO (units (u nknown) date) DISCHARGED ON unknown) PROTONIX B.I.D. WITH CARAFATE ADDED. (unknown) (no (unknown) (unknown) PEPTIC ULCER (units (u nknown) date) DISEASE VERSUS ACID unknown) REFLUX DISEASE PER HISTORY (unknown) (no (unknown) (unknown) REACTIVE (units (unkno wn) date) HYPERGLYCEMIA unknown) (unknown) (no (unknown) (unknown) REPORT BLACK TARRY (units (unknown) date) STOOL OR ANY BLOOD unknown) IN THE SPUTUM (unknown) (no (unknown) (unknown) SHE WAS ADVICE TO (units (unknown) date) TAKE NSAID IN unknown) COMBINATION WITH TYLENOL OTC FOR PAIN (unknown) (no (unknown) (unknown) TAKE MEDICATION (units (unknown) date) PRESCRIBED ONLY unknown) (unknown) (no (unknown) (unknown) (past 8 hours): (units (unknown) date) unknown) (unknown) (no (unknown) (unknown) [id number] (units (unkno wn) date) unknown) (unknown) (no (unknown) (unknown) 01/15/22 00:58 (units (unknown) date) unknown) (unknown) (no (unknown) (unknown) 01/15/22 03:03 (units (unknown) date) unknown) (unknown) (no (unknown) (unknown) 05:35 01/16/22 (units (unknown) date) unknown) (unknown) (no (unknown) (unknown) 07:00 (units (unkno wn) date) unknown) (unknown) (no (unknown) (unknown) 2020.? She denies (units (unknown) date) fevers sweats, unknown) denies shortness of breath, chest pain, dysuria (unknown) (no (unknown) (unknown) ABDOMEN: SOFT. (units (unknown) date) NONTENDER. unknown) NONDISTENDED. BOWEL SOUNDS ARE PRESENT IN ALL 4 (unknown) (no (unknown) (unknown) ALLOW FOR PROPER (units (unknown) date) BOWEL REST. unknown) (unknown) (no (unknown) (unknown) AVAILABLE RESOURCES (unit s (unknown) date) TO MAKE FOR unknown) DIAGNOSIS IS RECOMMENDED. (unknown) (no (unknown) (unknown) Activity: (units (u nknown) date) TOLERATED unknown) (unknown) (no (unknown) (unknown) Age/Sex: 26 / F (units (unknown) date) unknown) (unknown) (no (unknown) (unknown) Anxiety (units (unkno wn) date) unknown) (unknown) (no (unknown) (unknown) Attending Provider: (unit s (unknown) date) Radha House unknown) (unknown) (no (unknown) (unknown) BOWEL MOVEMENTS (units (unknown) date) unknown) (unknown) (no (unknown) (unknown) BUN 10 (units (unkno wn) date) unknown) (unknown) (no (unknown) (unknown) BUN/Creatinine (units (unknown) date) Ratio 16.4 unknown) (unknown) (no (unknown) (unknown) Blood Pressure (units (unknown) date) 114/78 114/69 unknown) (unknown) (no (unknown) (unknown) CHEST: REGULAR (units (unknown) date) RATE. NO RUBS. unknown) PMI IS NON DISPLACED. NO MURMURS; NORMAL S1- (unknown) (no (unknown) (unknown) COLON. (units (unkno wn) date) unknown) (unknown) (no (unknown) (unknown) Calcium 9.2 (units (u nknown) date) unknown) (unknown) (no (unknown) (unknown) Carbon Dioxide 25 (units (unknown) date) unknown) (unknown) (no (unknown) (unknown) Chief complaint: (units (unknown) date) Lower abdominal unknown) pain, hematemasis melana (unknown) (no (unknown) (unknown) Chloride 106 (units ( unknown) date) unknown) (unknown) (no (unknown) (unknown) Cognitive/behaviora (unit s (unknown) date) l status at unknown) discharge: oriented (unknown) (no (unknown) (unknown) Consult to (units (unk nown) date) Physician Routine unknown) (unknown) (no (unknown) (unknown) Consults: (units (unkn own) date) unknown) (unknown) (no (unknown) (unknown) Continued (units (unkn own) date) unknown) (unknown) (no (unknown) (unknown) Creatinine 0.61 (units (unknown) date) unknown) (unknown) (no (unknown) (unknown) : 1995 (units (unknown) date) Acct:[id number] unknown) (unknown) (no (unknown) (unknown) Date Patient Seen: (units (unknown) date) 01/15/22 unknown) (unknown) (no (unknown) (unknown) Date Patient Seen: (units (unknown) date) 01/16/22 unknown) (unknown) (no (unknown) (unknown) Date of admission: (units (unknown) date) unknown) (unknown) (no (unknown) (unknown) Deep Vein (units (unkn own) date) Thrombosis/Pulmonary unknown) Embolism Present on Admission: No (unknown) (no (unknown) (unknown) Diet/Activity/Treat (unit s (unknown) date) ments unknown) (unknown) (no (unknown) (unknown) Diet: Full Liquid (units (unknown) date) unknown) (unknown) (no (unknown) (unknown) Discharge Data (units (unknown) date) unknown) (unknown) (no (unknown) (unknown) Discharge Date: (units (unknown) date) 01/16/22 unknown) (unknown) (no (unknown) (unknown) Discharge (units (unkn own) date) Diagnosis: unknown) (unknown) (no (unknown) (unknown) Discharge Plan (units (unknown) date) unknown) (unknown) (no (unknown) (unknown) Discharge Providers (unit s (unknown) date) unknown) (unknown) (no (unknown) (unknown) Discharge orders + (units (unknown) date) Medications unknown) (unknown) (no (unknown) (unknown) Discharge provider: (unit s (unknown) date) unknown) (unknown) (no (unknown) (unknown) Discontinued (units (u nknown) date) unknown) (unknown) (no (unknown) (unknown) EXTREMITIES: NO (units (unknown) date) EDEMA.. NO CYANOSIS unknown) CLUBBING NOTED. (unknown) (no (unknown) (unknown) EYE: EOMI, PERRLA, (unit s (unknown) date) NORMAL CONJUNCTIVA; unknown) NO JAUNDICE (unknown) (no (unknown) (unknown) Estimated GFR > 60 (unit s (unknown) date) unknown) (unknown) (no (unknown) (unknown) Exam (units (unkno wn) date) unknown) (unknown) (no (unknown) (unknown) Exam Narrative: (units (unknown) date) unknown) (unknown) (no (unknown) (unknown) Exercise-induced (units (unknown) date) asthma unknown) (unknown) (no (unknown) (unknown) FOR FIBROMYALGIA. (units (unknown) date) unknown) (unknown) (no (unknown) (unknown) Family History (units (unknown) date) (Reviewed 01/16/22 @ unknown) 08:07 by Alli Reed MD) (unknown) (no (unknown) (unknown) Functional status (units (unknown) date) at discharge: unknown) independent ambulation (unknown) (no (unknown) (unknown) : NORMAL (units (u nknown) date) EXTERNAL GENITALIA. unknown) (unknown) (no (unknown) (unknown) Glucose 124 H (units (unknown) date) unknown) (unknown) (no (unknown) (unknown) HAD A COLONOSCOPY (units (unknown) date) WHICH SHOWED DIFFUSE unknown) INFLAMMATORY PROCESS THROUGHOUT THE (unknown) (no (unknown) (unknown) HEAD ATRAUMATIC (units (unknown) date) NORMOCEPHALIC unknown) (unknown) (no (unknown) (unknown) History of Present (units (unknown) date) Illness unknown) (unknown) (no (unknown) (unknown) Hospital Course (units (unknown) date) unknown) (unknown) (no (unknown) (unknown) Hospital Course: (units (unknown) date) unknown) (unknown) (no (unknown) (unknown) INCREASED DULLNESS (units (unknown) date) TO PERCUSSION unknown) (unknown) (no (unknown) (unknown) INFLAMMATORY BOWEL (units (unknown) date) DISEASE. unknown) GASTROENTERITIS IS NOT SUSPECTED.FURTHER WORKUP (unknown) (no (unknown) (unknown) INTERMITTENTLY (units (unknown) date) NEEDED. unknown) (unknown) (no (unknown) (unknown) Joselyn (units (un known) date) Mere, DO unknown) (unknown) (no (unknown) (unknown) Chelsea Lebron is a (units (unknown) date) 26-year-old female unknown) with a past history of a lower GI bleed, (unknown) (no (unknown) (unknown) Labs (units (unkno wn) date) unknown) (unknown) (no (unknown) (unknown) Labs: (units (unkno wn) date) unknown) (unknown) (no (unknown) (unknown) Lupus (units (unkno wn) date) unknown) (unknown) (no (unknown) (unknown) MSK: NORMAL RANGE (units (unknown) date) OF MOTION FOR AGE. unknown) NO JOINT EFFUSION. (unknown) (no (unknown) (unknown) Medical History (units (unknown) date) (Reviewed 01/16/22 @ unknown) 08:07 by Alli Reed MD) (unknown) (no (unknown) (unknown) Mother Bowel (units (unknown) date) obstruction unknown) (unknown) (no (unknown) (unknown) NECK : SUPPLE (units ( unknown) date) WITHOUT ADENOPATHY unknown) NO CAROTID BRUITS (unknown) (no (unknown) (unknown) NEURO: CRANIAL (units (unknown) date) NERVES 2-12 GROSSLY unknown) INTACT. NO FOCAL NEUROLOGICAL DEFICIT NOTED. (unknown) (no (unknown) (unknown) NO ACUTE DISTRESS. (units (unknown) date) PATIENT IS ALERT unknown) ORIENTED X3. (unknown) (no (unknown) (unknown) Narrative (units (unkn own) date) unknown) (unknown) (no (unknown) (unknown) Narrative: (units (unk nown) date) unknown) (unknown) (no (unknown) (unknown) Narrative: (units (unk nown) date) unknown) (unknown) (no (unknown) (unknown) New (units (unkno wn) date) unknown) (unknown) (no (unknown) (unknown) Nursing Discharge (units (unknown) date) Comment: F/U WITH unknown) PCP IN 2-3 WEEKS (unknown) (no (unknown) (unknown) OUTPATIENT (units (unk nown) date) unknown) (unknown) (no (unknown) (unknown) Objective (units (unkn own) date) unknown) (unknown) (no (unknown) (unknown) Overall status at (units (unknown) date) discharge: patient unknown) is back to baseline (unknown) (no (unknown) (unknown) Oxygen Delivery (units (unknown) date) Method Room Air unknown) (unknown) (no (unknown) (unknown) Oxygen Flow Rate (units (unknown) date) 0 unknown) (unknown) (no (unknown) (unknown) PFSH (units (unkno wn) date) unknown) (unknown) (no (unknown) (unknown) PROVIDERS. (units (unk nown) date) unknown) (unknown) (no (unknown) (unknown) PSYCH : (units (unkno wn) date) APPROPRIATE MOOD AND unknown) AFFECT. ALERT AWAKE ORIENTED X3 (unknown) (no (unknown) (unknown) PULMONARY: (units (unk nown) date) DECREASED BS OVER unknown) THE BASES. MILD BIBASILAR CRACKLES NOTED; NO (unknown) (no (unknown) (unknown) Patient (units (unkno wn) date) Disposition: Home unknown) (unknown) (no (unknown) (unknown) Patient: (units (unkno wn) date) Chelsea Lebron unknown) MR#: [id number] (unknown) (no (unknown) (unknown) Potassium 4.2 (units (unknown) date) unknown) (unknown) (no (unknown) (unknown) Prescriptions: (units (unknown) date) unknown) (unknown) (no (unknown) (unknown) Provider (units (unkno wn) date) unknown) (unknown) (no (unknown) (unknown) Provider: (units (unkn own) date) Luis Severino unknown) chu (unknown) (no (unknown) (unknown) Pulse Oximetry 98 (units (unknown) date) 98 unknown) (unknown) (no (unknown) (unknown) Pulse Rate 71 77 (units (unknown) date) unknown) (unknown) (no (unknown) (unknown) QUADRANTS. NO (units (unknown) date) MASS. unknown) (unknown) (no (unknown) (unknown) Quality (units (unkno wn) date) unknown) (unknown) (no (unknown) (unknown) RASHES (units (unkno wn) date) unknown) (unknown) (no (unknown) (unknown) Respiratory Rate 18 (unit s (unknown) date) 18 unknown) (unknown) (no (unknown) (unknown) Result Diagrams: (units (unknown) date) unknown) (unknown) (no (unknown) (unknown) S2 (units (unkno wn) date) unknown) (unknown) (no (unknown) (unknown) SKIN: NORMAL FOR (units (unknown) date) ETHNICITY; NO unknown) ECCHYMOSIS. NO LESION. GOOD TURGOR.; NO (unknown) (no (unknown) (unknown) SUCH ULCERATIVE (unit s (unknown) date) COLITIS OR CROHN'S. unknown) (unknown) (no (unknown) (unknown) Signed (units (unkno wn) date) By:<Electronically unknown) signed by Joselyn Severino> [id number] (unknown) (no (unknown) (unknown) Sister Bowel (units (unknown) date) obstruction unknown) (unknown) (no (unknown) (unknown) Smoking Status: (units (unknown) date) Never smoker unknown) (unknown) (no (unknown) (unknown) Social History (units (unknown) date) (Reviewed 01/15/22 @ unknown) 04:53 by Mario Ashraf DO) (unknown) (no (unknown) (unknown) Sodium 139 (units (un known) date) unknown) (unknown) (no (unknown) (unknown) Status at Discharge (unit s (unknown) date) unknown) (unknown) (no (unknown) (unknown) Summary (units (unkno wn) date) unknown) (unknown) (no (unknown) (unknown) THIS IS A VERY (units (unknown) date) PLEASANT 26-YEAR-OLD unknown) FEMALE FOR PAST MEDICAL HISTORY SIGNIFICANT (unknown) (no (unknown) (unknown) TO MEDICAL (units (unk nown) date) MANAGEMENT. unknown) (unknown) (no (unknown) (unknown) TODAY. (units (unkno wn) date) unknown) (unknown) (no (unknown) (unknown) Temperature 96.8 F (units (unknown) date) L 97.5 F L unknown) (unknown) (no (unknown) (unknown) Time Patient Seen: (units (unknown) date) 03:00 unknown) (unknown) (no (unknown) (unknown) Time Spent with (units (unknown) date) Patient unknown) (unknown) (no (unknown) (unknown) Time spent: Greater (unit s (unknown) date) than 30 minutes unknown) (unknown) (no (unknown) (unknown) VITAL SIGNS STABLE (units (unknown) date) unknown) (unknown) (no (unknown) (unknown) VTE (units (unkno wn) date) unknown) (unknown) (no (unknown) (unknown) Vital Signs (units (un known) date) unknown) (unknown) (no (unknown) (unknown) X-ray acute abdomen (unit s (unknown) date) series was negative, unknown) pelvis ultrasound was negative, CT of (unknown) (no (unknown) (unknown) [Embedded Image Not (unit s (unknown) date) Available] unknown) (unknown) (no (unknown) (unknown) abdominal pain and (units (unknown) date) was seen in the unknown) emergency department on January 09 and (unknown) (no (unknown) (unknown) as melena.? They (units (unknown) date) sent her home with unknown) Mag citrate which she produced of quite a (unknown) (no (unknown) (unknown) associated mild (units (unknown) date) short-segment unknown) dilatation of the distal ileum likely secondary to (unknown) (no (unknown) (unknown) biopsies were (units ( unknown) date) negative.? She unknown) states that her pain is very consistent but has (unknown) (no (unknown) (unknown) bit of stool and (units (unknown) date) has been having unknown) diarrhea ever since.? She went her to her PCP (unknown) (no (unknown) (unknown) colon with (units (unk nown) date) air-fluid levels unknown) representing gastroenteritis or ileus, it noted (unknown) (no (unknown) (unknown) colonic distension, (unit s (unknown) date) she has a unknown) hypervascular lesion in the right hepatic lobe (unknown) (no (unknown) (unknown) colonoscopy and (units (unknown) date) endoscopy and it was unknown) found to have an inflamed colon but the (unknown) (no (unknown) (unknown) diagnosed with (units (unknown) date) obstipation.? At unknown) that time she complained of hematemesis as well (unknown) (no (unknown) (unknown) for follow-up and (units (unknown) date) was found to still unknown) be constipated.? In November she underwent (unknown) (no (unknown) (unknown) kg with a BMI of (units (unknown) date) 29.3 unknown) (unknown) (no (unknown) (unknown) lupus, colon (units (u nknown) date) polyps, and unknown) abdominal pain has had a several day history of severe (unknown) (no (unknown) (unknown) or changes in bowel (unit s (unknown) date) or bladder control. unknown) (unknown) (no (unknown) (unknown) rate 106, (units (unkn own) date) respiratory rate 16, unknown) oxygen saturation 98% on room air she weighs 75 (unknown) (no (unknown) (unknown) representing a (units ( unknown) date) hemangioma.? Patient unknown) is afebrile, blood pressure is 122/75, heart (unknown) (no (unknown) (unknown) sharp shooting (units (unknown) date) pains in the unknown) meantime.? She has a history of an appendectomy in (unknown) (no (unknown) (unknown) the abdomen and (units (unknown) date) pelvis did indicate unknown) findings of fluid distention throughout the Social History date description facility (no date) Never smoked tobacco ([facility] Vital Signs date measurement value units +0000 temperature_metric temperature_metric 36.56 C [id number]+0000 temperature_standard temperature_standard 9 7.8 F [id number]+0000 weight_metric weight_metric 34.98 kg +0000 weight_standard weight_standard 77.11 lb [id number]+0000 BP_diastolic BP_diastolic 78 mm[H g] [id number]+0000 BP_systolic BP_systolic 120 mm[Hg] [id number]+0000 heart_rate heart_rate 80 /min [id number]+0000 respiration_rate respiration_rate 16 /min [id number]+0000 BP_diastolic BP_diastolic 69 mm[H g] [id number]+0000 BP_systolic BP_systolic 118 mm[Hg] [id number]+0000 heart_rate heart_rate 91 /min [id number]+0000 height_metric height_metric 160 cm +0000 height_standard height_standard 62.99 in +0000 respiration_rate respiration_rate 17 /min [id number]+0000 temperature_metric temperature_metric 36.28 C +0000 temperature_standard temperature_standard 9 7.3 F [id number]+0000 weight_metric weight_metric 34.02 kg +0000 weight_standard weight_standard 75 lb [id number]+0000 BP_diastolic BP_diastolic 69 mm[H g] +0000 BP_systolic BP_systolic 114 mm[Hg] +0000 heart_rate heart_rate 77 /min +0000 respiration_rate respiration_rate 18 /min +0000 temperature_metric temperature_metric 36.39 C +0000 temperature_standard temperature_standard 9 7.5 F
== END 2022-02-13 01:54 | disposition home or self-care (01) ==
LOC: ED 22:43
DX: R00.0 Tachycardia, unspecified (principal); R10.10 Upper abdominal pain, unspecified
CPT/HCPCS: 36415; 71045; 80053; 83690; 84484; 85025; 93005; 99284; A9270

== ENCOUNTER 2022-03-18 20:03 | Emergency (ER) | payer OTHER ==
--- OUTSIDE RECORDS SUMMARY | 2022-03-18 20:13 | EXTERNAL MEDICAL SUMMARY RPT | Continuity of Care Document ---
:1995 Author Organization [facility] Address [address] [place] [address] Phone Allergies and Intolerances date description facility type (no date) Penicillins [facility] (unknown) (no date) doxycycline [facility] (unknown) (no date) hydrocodone [facility] (unknown) (no date) lidocaine [facility] (unknown) (no date) shellfish derived [facility] (unknown) Encounters No information. Functional Status No information. Immunizations No information. Medications date description facility + Ondansetron 4 MG Disintegrating Tablet [facility] +0000 Oxycodone Hydrochloride 5 MG Oral [facility] +0000 Prednisone 10 MG Oral [facility] +0000 Famotidine 40 MG Oral Tablet [facility] +0000 24 HR venlafaxine 150 MG Extended Rele ase [facility] Capsule +0000 pantoprazole 40 MG Enteric Coated [facility] +0000 pantoprazole 40 MG Enteric Coated [facility] +0000 Sucralfate 1000 MG Oral [facility] +0000 tramadol hydrochloride 50 MG Oral [facility] Problems No information. Procedures date description facility +0000 Diagnosis [facility] +0000 Finding [facility] [id number]+0000 General Physician [facility] +0000 [facility] Results/Labs test date author facility value [...] (unknown) date) unknown) (unknown) (no (unknown) (unknown) [facility] (units (unknown) date) [address] unknown) [place] [address] (unknown) (no (unknown) (unknown) Lab Results (units [...] Instructions unknown) Recorded (unknown) (no (unknown) (unknown) [id number] (units (unkno wn) date) unknown) (unknown) (no [...] (unknown) (unknown) : 1995 (units (unknown) date) Acct:[id number] unknown) (unknown) (no (unknown) (unknown) Departure (units [...] (Auto) (units (unknown) date) 4700 H unknown) (1623-9883) /uL (unknown) (no (unknown) (unknown) Lymph % [...] date) Ambulatory unknown) (unknown) (no (unknown) (unknown) [place] # (Auto) (units ( unknown) date) 600 (0-900) /uL unknown) (unknown) (no (unknown) (unknown) [place] % (Auto) (units ( unknown) date) 4.7 (3-14) % unknown) (unknown) (no (unknown) (unknown) Neut # (Auto) (units ( unknown) date) 6600 (9340-6608) unknown) /uL (unknown) (no (unknown) (unknown) Neut [...] (unknown) (unknown) Urine Specific (units (unknown) date) [place] 1.025 unknown) (unknown) (no (unknown) (unknown) Vital [...] nown) date) unknown) (unknown) (no (unknown) (unknown) [facility] [address] [place] [address] (units (unknown) date) unknown) (unknown) (no (unknown) (unknown) [place] (units ( unknown) date) [address] unknown) (unknown) (no (unknown) (unknown) CT Scan Report (units (unknown) date) unknown) (unknown) (no (unknown) (unknown) [facility] (units (unknown) date) unknown) (unknown) (no [...] Approved by: (units (u nknown) date) Alex Patioñ, unknown) Richard on 01/10/2022 at 2:03 (unknown) (no (unknown) (unknown) Biliary ducts: (units (unknown) date) No biliary ductal unknown) dilatation. (unknown) (no (unknown) (unknown) Bladder: (units (unkno wn) date) Unremarkable. unknown) (unknown) (no (unknown) (unknown) Bones: (units (unkno wn) date) Visualized osseous unknown) structures demonstrate no suspicious focal lesions. (unknown) (no (unknown) (unknown) COMPARISON: (units (un known) date) [facility] unknown) [facility], CT, CT ABDOMEN PELVIS WITH CONTRAST, (unknown) [...] were performed. For (unknown) (no (unknown) (unknown) [id number] (units (unkno wn) date) unknown) (unknown) (no (unknown) (unknown) 01/03/2021, (units (unk nown) date) unknown) (unknown) (no (unknown) (unknown) Accession Number: (units (unknown) date) [id number] unknown) (unknown) (no (unknown) (unknown) Age/Sex: 26 / F (units (unknown) date) Date of Service: unknown) (unknown) (no (unknown) (unknown) : 1995 (units (unknown) date) Acct:[id number] unknown) (unknown) (no (unknown) (unknown) Loc: ED [...] (unknown) date) unknown) (unknown) (no (unknown) (unknown) [facility] (units (unknown) date) [address] [place] [address] Street unknown) [place] [address] (unknown) (no (unknown) (unknown) Lab Results (units [...] that at 1 (unknown) (no (unknown) (unknown) [id number] (units (unkno wn) date) unknown) (unknown) (no [...] (unknown) (unknown) : 1995 (units (unknown) date) Acct:[id number] unknown) (unknown) (no (unknown) (unknown) Departure (units (unkn own) date) unknown) (unknown) (no (unknown) (unknown) Discharge Plan (units (unknown) date) unknown) (unknown) (no (unknown) (unknown) EKG-12 Lead Stat (units (unknown) date) unknown) (unknown) (no (unknown) (unknown) ER Physician: (units ( unknown) date) Chanell Sahin L unknown) (unknown) (no (unknown) (unknown) Eos [...] (Auto) (units (unknown) date) 47[address] unknown) (3119-8691) /uL (unknown) (no (unknown) (unknown) Lymph % [...] date) Ambulatory unknown) (unknown) (no (unknown) (unknown) [place] # (Auto) (units ( unknown) date) 600 (0-900) /uL unknown) (unknown) (no (unknown) (unknown) [place] % (Auto) (units ( unknown) date) 4.7 (3-14) % unknown) (unknown) (no (unknown) (unknown) Narrative: (units (unk nown) date) unknown) (unknown) (no (unknown) (unknown) Neurologic: (units (un known) date) Grossly unknown) neurologically intact with no obvious asymmetries or (unknown) (no (unknown) (unknown) Neut # (Auto) (units ( unknown) date) 6600 (1185-3359) unknown) /uL (unknown) (no (unknown) (unknown) Neut [...] (unknown) (unknown) Urine Specific (units (unknown) date) [place] 1.025 unknown) (unknown) (no (unknown) (unknown) Vital [...] (unknown) date) unknown) (unknown) (no (unknown) (unknown) [facility] (units (unknown) date) [address] unknown) [place] [address] (unknown) (no (unknown) (unknown) Lab Results (units [...] wn) date) unknown) (unknown) (no (unknown) (unknown) [id number] (units (unkno wn) date) unknown) (unknown) (no [...] (unknown) (unknown) : 1995 (units (unknown) date) Acct:[id number] unknown) (unknown) (no (unknown) (unknown) Departure (units [...] (Auto) (units (unknown) date) 47[address] unknown) (2157-5409) /uL (unknown) (no (unknown) (unknown) Lymph % [...] date) Ambulatory unknown) (unknown) (no (unknown) (unknown) [place] # (Auto) (units ( unknown) date) 600 (0-900) /uL unknown) (unknown) (no (unknown) (unknown) [place] % (Auto) (units ( unknown) date) 4.7 (3-14) % unknown) (unknown) (no (unknown) (unknown) Narrative: (units (unk nown) date) unknown) (unknown) (no (unknown) (unknown) Neurologic: (units (un known) date) Grossly unknown) neurologically intact with no obvious asymmetries or (unknown) (no (unknown) (unknown) Neut # (Auto) (units ( unknown) date) 6600 (7631-4911) unknown) /uL (unknown) (no (unknown) (unknown) Neut [...] (unknown) (unknown) Urine Specific (units (unknown) date) [place] 1.025 unknown) (unknown) (no (unknown) (unknown) Ventral [...] (unknown) date) unknown) (unknown) (no (unknown) (unknown) [facility] (units (unknown) date) [address] [facility] [address] unknown) [place] [address] (unknown) (no (unknown) (unknown) Lab Results (units [...] wn) date) unknown) (unknown) (no (unknown) (unknown) [id number] (units (unkno wn) date) unknown) (unknown) (no [...] (unknown) (unknown) : 1995 (units (unknown) date) Acct:[id number] unknown) (unknown) (no (unknown) (unknown) Departure (units [...] bottle of unknown) magnesium citrate, this is [id number] if you (unknown) (no (unknown) (unknown) I [...] (Auto) (units (unknown) date) 47[address] unknown) (6633-8994) /uL (unknown) (no (unknown) (unknown) Lymph % [...] date) Ambulatory unknown) (unknown) (no (unknown) (unknown) [place] # (Auto) (units ( unknown) date) 600 (0-900) /uL unknown) (unknown) (no (unknown) (unknown) [place] % (Auto) (units ( unknown) date) 4.7 (3-14) % unknown) (unknown) (no (unknown) (unknown) Narrative: (units (unk nown) date) unknown) (unknown) (no (unknown) (unknown) Neurologic: (units (un known) date) Grossly unknown) neurologically intact with no obvious asymmetries or (unknown) (no (unknown) (unknown) Neut # (Auto) (units ( unknown) date) 6600 (1562-1984) unknown) /uL (unknown) (no (unknown) (unknown) Neut [...] (unknown) (unknown) Urine Specific (units (unknown) date) [place] 1.025 unknown) (unknown) (no (unknown) (unknown) Ventral [...] (unknown) surgical abdomen, (units (unknown) date) infection, 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 Will send her home with [...] nown) date) unknown) (unknown) (no (unknown) (unknown) [address] [place] [address] (units (unknown) date) unknown) (unknown) (no (unknown) (unknown) [place], [place] (units ( unknown) date) [address] unknown) (unknown) (no (unknown) (unknown) [facility] (units (unknown) date) unknown) (unknown) (no [...] (unknown) date) unknown) (unknown) (no (unknown) (unknown) [id number] (units (unkno wn) date) unknown) (unknown) (no (unknown) (unknown) Accession Number: (units (unknown) date) [id number] unknown) (unknown) (no (unknown) (unknown) Age/Sex: 26 / F (units (unknown) date) Date of Service: unknown) (unknown) (no (unknown) (unknown) : 1995 (units (unknown) date) Acct:[id number] unknown) (unknown) (no (unknown) (unknown) Loc: ED [...] (unkn own) (unknown) (no date) (unknown) (unknown) [address] /uL (unkn own) (unknown) (no date) (unknown) [...] 12 0RF (unknown) (no (unknown) (unknown) [address] [place] [address] (units (unknown) date) unknown) (unknown) (no (unknown) (unknown) 2 puff INHALATION (units (unknown) date) Q4-6H PRN (Reason: unknown) shortness of breath) Qty: 18 0RF (unknown) (no (unknown) (unknown) 40 mg PO DAILY (units (unknown) date) Qty: 7 0RF unknown) (unknown) (no (unknown) (unknown) Allergies (units (unkn own) date) unknown) (unknown) (no (unknown) (unknown) [place] (units ( unknown) date) [address] unknown) (unknown) (no (unknown) (unknown) Documented by: (units (unknown) date) EDU.ASEXTO unknown) (unknown) (no (unknown) (unknown) ED Orders (units (unkn own) date) unknown) (unknown) (no (unknown) (unknown) Emergency Report (units (unknown) date) unknown) (unknown) (no (unknown) (unknown) [facility] (units (unknown) date) unknown) (unknown) (no (unknown) (unknown) [facility] (units (unknown) date) [address] [place] [address] Street unknown) [place] [address] (unknown) (no (unknown) (unknown) Lab Results (units [...] Instructions unknown) Recorded (unknown) (no (unknown) (unknown) [id number] (units (unkno wn) date) unknown) (unknown) (no [...] (unknown) (unknown) Accession Number: (units (unknown) date) [id number] ?? unknown) (unknown) (no (unknown) (unknown) Acct:[id number] (units (unknown) date) unknown) (unknown) (no (unknown) [...] Approved by: Víctor Southunits (unknown) date) Richard Bender on unknown) 01/14/2022 [...] (unknown) (unknown) : 1995 (units (unknown) date) Acct:[id number] unknown) (unknown) (no (unknown) (unknown) : 1995 [...] Lymph # (Auto) (units (unknown) date) 2400 (5312-3574) unknown) /uL (unknown) (no (unknown) (unknown) Lymph [...] Pain unknown) (unknown) (no (unknown) (unknown) MR#: [id number] (units (unknown) date) unknown) (unknown) (no (unknown) (unknown) Medical History (units (unknown) date) (Updated 01/10/22 unknown) @ 02:38 by Chanell Sahni MD) (unknown) (no (unknown) (unknown) Mode of arrival: (units (unknown) date) Family Vehicle unknown) (unknown) (no (unknown) (unknown) [place] # (Auto) (units ( unknown) date) 400 (0-900) /uL unknown) (unknown) (no (unknown) (unknown) [place] % (Auto) (units ( unknown) date) 3.2 (3-14) % unknown) (unknown) (no (unknown) (unknown) NEGATIVE (units (unkno wn) date) unknown) (unknown) (no (unknown) (unknown) Neut # (Auto) (units ( unknown) date) 113[address] H unknown) (3302-0649) /uL (unknown) (no (unknown) (unknown) Neut % [...] (unknown) (unknown) Urine Specific (units (unknown) date) [place] 1.020 unknown) (unknown) (no (unknown) (unknown) Visualized [...] date) unknown) (unknown) (no (unknown) (unknown) [address] [place] [address] (units (unknown) date) unknown) (unknown) (no (unknown) (unknown) [place] (units ( unknown) date) [address] unknown) (unknown) (no (unknown) (unknown) [facility] (units (unknown) date) unknown) (unknown) (no [...] (unknown) (unknown) COMPARISON: (units (un known) date) [facility] PEL[facility]IC+TRANSVAG, 05/01/2017, 13:05. (unknown) (no [...] Less than 12 (unknown) (no (unknown) (unknown) [id number] (units (unkno wn) date) unknown) (unknown) (no (unknown) (unknown) 2.6 x 1.6 (units (unkn own) date) unknown) (unknown) (no (unknown) (unknown) Accession Number: (units (unknown) date) [id number] unknown) (unknown) (no (unknown) (unknown) Age/Sex: 26 / F (units (unknown) date) Date of Service: unknown) (unknown) (no (unknown) (unknown) : 1995 (units (unknown) date) Acct:[id number] unknown) (unknown) (no (unknown) (unknown) Loc: ED [...] date) unknown) (unknown) (no (unknown) (unknown) [address] [place] [address] (units (unknown) date) unknown) (unknown) (no (unknown) (unknown) [place] (units ( unknown) date) [address] unknown) (unknown) (no (unknown) (unknown) CT Scan Report (units (unknown) date) unknown) (unknown) (no (unknown) (unknown) [facility] (units (unknown) date) unknown) (unknown) (no (unknown) (unknown) Signed (units (unkno wn) date) unknown) (unknown) (no (unknown) (unknown) (no value) (units (unk nown) date) unknown) (unknown) (no (unknown) (unknown) 01/14/22 (units (unkno wn) date) unknown) (unknown) (no (unknown) (unknown) 1. Fluid (units (unkno wn) date) distention unknown) throughout the colon with air-fluid levels likely (unknown) (no (unknown) (unknown) 14:03. [place] (units (unknown) date) [facility], CT, CT unknown) ABDOMEN PELVIS W [...] (unknown) (unknown) COMPARISON: (units (un known) date) [facility] unknown) [facility], CT, CT ABDOMEN PELVIS WITH CONTRAST, (unknown) [...] There is a (unknown) (no (unknown) (unknown) [id number] (units (unkno wn) date) unknown) (unknown) (no (unknown) (unknown) 01/03/2021, (units (unk nown) date) unknown) (unknown) (no (unknown) (unknown) Accession Number: (units (unknown) date) [id number] unknown) (unknown) (no (unknown) (unknown) Age/Sex: 26 / F (units (unknown) date) Date of Service: unknown) (unknown) (no (unknown) (unknown) : 1995 (units (unknown) date) Acct:[id number] unknown) (unknown) (no (unknown) (unknown) Loc: ED [...] (unknown) date) unknown) (unknown) (no (unknown) (unknown) [address] [place] [address] (units (unknown) date) unknown) (unknown) (no (unknown) (unknown) Admin: 01/14/22 (units (unknown) date) 18:54 Dose: 150 unknown) mls/hr (unknown) (no (unknown) (unknown) Allergies (units (unkn own) date) unknown) (unknown) (no (unknown) ([place]) [place] [address] (unit s (unknown) date) unknown) (unknown) (no [...] 100 unknown) mls/hr (unknown) (no (unknown) (unknown) [facility] (units (unknown) date) unknown) (unknown) (no (unknown) (unknown) [facility] (units (unknown) date) [address] [place] [address] unknown) [place] [address] (unknown) (no (unknown) (unknown) Lab Results (units [...] wn) date) unknown) (unknown) (no (unknown) (unknown) [id number] (units (unkno wn) date) unknown) (unknown) (no [...] (unknown) (unknown) Accession Number: (units (unknown) date) [id number] ?? unknown) (unknown) (no (unknown) (unknown) Acct:[id number] (units (unknown) date) unknown) (unknown) (no (unknown) [...] (unknown) (unknown) : 1995 (units (unknown) date) Acct:[id number] unknown) (unknown) (no (unknown) (unknown) : 1995 [...] Lymph # (Auto) (units (unknown) date) 2400 (6394-7584) unknown) /uL (unknown) (no (unknown) (unknown) Lymph [...] Pain unknown) (unknown) (no (unknown) (unknown) MR#: [id number] (units (unknown) date) unknown) (unknown) (no (unknown) (unknown) Medical History (units (unknown) date) (Updated 01/10/22 @ unknown) 02:38 by Chanell Sahni MD) (unknown) (no (unknown) (unknown) Methylprednisolone (units (unknown) date) (Methylprednisolone unknown) 125 Mg/2 Ml Vial) 125 mg IV NOW ONE (unknown) (no (unknown) (unknown) Mode of arrival: (units (unknown) date) Family Vehicle unknown) (unknown) (no (unknown) (unknown) [place] # (Auto) 400 (units (unknown) date) (0-900) /uL unknown) (unknown) (no (unknown) (unknown) [place] % (Auto) 3.2 (units (unknown) date) (3-14) % unknown) (unknown) (no (unknown) (unknown) Naloxone HCl (units (u nknown) date) (Naloxone 0.4 Mg/Ml unknown) Vial) 0.2 mg IV Q2MIN PRN (unknown) (no (unknown) (unknown) Neut # (Auto) (units ( unknown) date) 78956 H unknown) (9206-9847) /uL (unknown) (no (unknown) (unknown) Neut % [...] (unknown) (unknown) Urine Specific (units (unknown) date) [place] 1.020 unknown) (unknown) (no (unknown) (unknown) Visualized [...] (unknown) date) unknown) (unknown) (no (unknown) (unknown) [facility] (units (unknown) date) [address] unknown) [place] [address] (unknown) (no (unknown) (unknown) Laboratory (units (unk [...] wn) date) unknown) (unknown) (no (unknown) (unknown) [id number] (units (unkno wn) date) unknown) (unknown) (no [...] (unknown) (unknown) : 1995 (units (unknown) date) Acct:[id number] unknown) (unknown) (no (unknown) (unknown) Date Patient [...] wn) date) unknown) (unknown) (no (unknown) (unknown) [place] # (Auto) (units ( unknown) date) unknown) (unknown) (no (unknown) (unknown) [place] # (Auto) (units ( unknown) date) 400 unknown) (unknown) (no (unknown) (unknown) [place] % (Auto) (units ( unknown) date) unknown) (unknown) (no (unknown) (unknown) [place] % (Auto) (units ( unknown) date) 3.2 unknown) (unknown) (no (unknown) (unknown) Neut # (Auto) (units ( unknown) date) unknown) (unknown) (no (unknown) (unknown) Neut # (Auto) (units ( unknown) date) 11979 H unknown) (unknown) (no (unknown) (unknown) Neut [...] unknown) date) unknown) (unknown) (no (unknown) (unknown) [address] [place] [address] (units (unknown) date) unknown) (unknown) (no (unknown) (unknown) Admin: 01/14/22 (units (unknown) date) 18:54 Dose: 150 unknown) mls/hr (unknown) (no (unknown) (unknown) Allergies (units (unkn own) date) unknown) (unknown) (no (unknown) (unknown) ISAMAR Ram [address] (unit s (unknown) date) unknown) (unknown) (no [...] 100 unknown) mls/hr (unknown) (no (unknown) (unknown) [facility] (units (unknown) date) unknown) (unknown) (no (unknown) (unknown) [facility] (units (unknown) date) [address] [facility] [address] unknown) [place] [address] (unknown) (no (unknown) (unknown) Lab Results (units [...] wn) date) unknown) (unknown) (no (unknown) (unknown) [id number] (units (unkno wn) date) unknown) (unknown) (no [...] (unknown) (unknown) Accession Number: (units (unknown) date) [id number] ?? unknown) (unknown) (no (unknown) (unknown) Accession Number: (units (unknown) date) [id number] ?? unknown) (unknown) (no (unknown) (unknown) Acct:[id number] (units (unknown) date) unknown) (unknown) (no (unknown) [...] date) unknown) (unknown) (no (unknown) (unknown) COMPARISON:? [facility] (unit s (unknown) date) [facility], CT, unknown) CT ABDOMEN PELVIS [...] (unknown) (unknown) : 1995 (units (unknown) date) Acct:[id number] unknown) (unknown) (no (unknown) (unknown) : 1995 [...] Lymph # (Auto) (units (unknown) date) 2400 (0540-9061) unknown) /uL (unknown) (no (unknown) (unknown) Lymph [...] date) unknown) (unknown) (no (unknown) (unknown) MR#: [id number] (units (unknown) date) unknown) (unknown) (no (unknown) [...] Family Vehicle unknown) (unknown) (no (unknown) (unknown) [place] # (Auto) 400 (units (unknown) date) (0-900) /uL unknown) (unknown) (no (unknown) (unknown) [place] % (Auto) 3.2 (units (unknown) date) (3-14) [...] Neut # (Auto) (units ( unknown) date) 66781 H unknown) (2907-9205) /uL (unknown) (no (unknown) (unknown) Neut % [...] (unknown) (unknown) Urine Specific (units (unknown) date) [place] 1.020 unknown) (unknown) (no (unknown) (unknown) Ventral [...] (unknown) date) unknown) (unknown) (no (unknown) (unknown) [facility] (units (unknown) date) [address] unknown) [place] [address] (unknown) (no (unknown) (unknown) Laboratory (units (unk [...] wn) date) unknown) (unknown) (no (unknown) (unknown) [id number] (units (unkno wn) date) unknown) (unknown) (no [...] (unknown) (unknown) : 1995 (units (unknown) date) Acct:[id number] unknown) (unknown) (no (unknown) (unknown) Date Patient [...] wn) date) unknown) (unknown) (no (unknown) (unknown) [place] # (Auto) (units ( unknown) date) unknown) (unknown) (no (unknown) (unknown) [place] # (Auto) (units ( unknown) date) 400 unknown) (unknown) (no (unknown) (unknown) [place] % (Auto) (units ( unknown) date) unknown) (unknown) (no (unknown) (unknown) [place] % (Auto) (units ( unknown) date) 3.2 unknown) (unknown) (no (unknown) (unknown) Narrative: (units (unk nown) date) unknown) (unknown) (no (unknown) (unknown) Neut # (Auto) (units ( unknown) date) unknown) (unknown) (no (unknown) (unknown) Neut # (Auto) (units ( unknown) date) 72917 H unknown) (unknown) (no (unknown) (unknown) Neut [...] (unknown) date) unknown) (unknown) (no (unknown) (unknown) [facility] (units (unknown) date) [address] unknown) [place] [address] (unknown) (no (unknown) (unknown) Laboratory (units (unk [...] wn) date) unknown) (unknown) (no (unknown) (unknown) [id number] (units (unkno wn) date) unknown) (unknown) (no [...] (unknown) (unknown) : 1995 (units (unknown) date) Acct:[id number] unknown) (unknown) (no (unknown) (unknown) Date Patient [...] wn) date) unknown) (unknown) (no (unknown) (unknown) [place] # (Auto) (units ( unknown) date) unknown) (unknown) (no (unknown) (unknown) [place] # (Auto) (units ( unknown) date) 400 unknown) (unknown) (no (unknown) (unknown) [place] % (Auto) (units ( unknown) date) unknown) (unknown) (no (unknown) (unknown) [place] % (Auto) (units ( unknown) date) 3.2 [...] Neut # (Auto) (units ( unknown) date) [address] H unknown) (unknown) (no (unknown) (unknown) Neut [...] (unknown) date) unknown) (unknown) (no (unknown) (unknown) [facility] (units (unknown) date) [address] unknown) [place] [address] (unknown) (no (unknown) (unknown) Laboratory (units (unk [...] wn) date) unknown) (unknown) (no (unknown) (unknown) [id number] (units (unkno wn) date) unknown) (unknown) (no [...] (unknown) (unknown) : 1995 (units (unknown) date) Acct:[id number] unknown) (unknown) (no (unknown) (unknown) Date Patient [...] wn) date) unknown) (unknown) (no (unknown) (unknown) [place] # (Auto) (units ( unknown) date) unknown) (unknown) (no (unknown) (unknown) [place] # (Auto) (units ( unknown) date) 400 unknown) (unknown) (no (unknown) (unknown) [place] % (Auto) (units ( unknown) date) unknown) (unknown) (no (unknown) (unknown) [place] % (Auto) (units ( unknown) date) 3.2 [...] Neut # (Auto) (units ( unknown) date) 328[address] H unknown) (unknown) (no (unknown) (unknown) Neut [...] (unknown) date) unknown) (unknown) (no (unknown) (unknown) [facility] (units (unknown) date) [address] unknown) [place] [address] (unknown) (no (unknown) (unknown) Laboratory (units (unk [...] wn) date) unknown) (unknown) (no (unknown) (unknown) [id number] (units (unkno wn) date) unknown) (unknown) (no [...] (unknown) (unknown) : 1995 (units (unknown) date) Acct:[id number] unknown) (unknown) (no (unknown) (unknown) Date Patient [...] wn) date) unknown) (unknown) (no (unknown) (unknown) [place] # (Auto) (units ( unknown) date) unknown) (unknown) (no (unknown) (unknown) [place] # (Auto) (units ( unknown) date) 400 unknown) (unknown) (no (unknown) (unknown) [place] % (Auto) (units ( unknown) date) unknown) (unknown) (no (unknown) (unknown) Yancey % (Auto) (units ( unknown) date) 3.2 [...] Neut # (Auto) (units ( unknown) date) 03015 H unknown) (unknown) (no (unknown) (unknown) Neut [...] (unknown) date) unknown) (unknown) (no (unknown) (unknown) [facility] (units (unknown) date) [address] unknown) [place] [address] (unknown) (no (unknown) (unknown) Laboratory (units (unk [...] wn) date) unknown) (unknown) (no (unknown) (unknown) [id number] (units (unkno wn) date) unknown) (unknown) (no [...] (unknown) (unknown) : 1995 (units (unknown) date) Acct:[id number] unknown) (unknown) (no (unknown) (unknown) Date Patient [...] wn) date) unknown) (unknown) (no (unknown) (unknown) [place]y # (Auto) (units ( unknown) date) unknown) (unknown) (no (unknown) (unknown) [place]y # (Auto) (units ( unknown) date) 400 unknown) (unknown) (no (unknown) (unknown) [place] % (Auto) (units ( unknown) date) unknown) (unknown) (no (unknown) (unknown) [place] % (Auto) (units ( unknown) date) 3.2 [...] Neut # (Auto) (units ( unknown) date) 08336 H unknown) (unknown) (no (unknown) (unknown) Neut [...] (unknown) date) unknown) (unknown) (no (unknown) (unknown) [facility] (units (unknown) date) [address] unknown) [place] [address] (unknown) (no (unknown) (unknown) Laboratory (units (unk [...] (unknown) date) unknown) (unknown) (no (unknown) (unknown) [id number] (units (unkno wn) date) unknown) (unknown) (no [...] (unknown) (unknown) : 1995 (units (unknown) date) Acct:[id number] unknown) (unknown) (no (unknown) (unknown) Date Patient [...] (unknown) date) unknown) (unknown) (no (unknown) (unknown) [facility] [address] (uni ts (unknown) date) [address] [place] [address], unknown ) [place] [address] (unknown) (no (unknown) (unknown) Laboratory Results - [...] (unknown) date) unknown) (unknown) (no (unknown) (unknown) [id number] (units (unkno wn) date) unknown) (unknown) (no [...] (unknown) (unknown) : 1995 (units (unknown) date) Acct:[id number] unknown) (unknown) (no (unknown) (unknown) Date Patient [...] diet as (unknown) (no (unknown) (unknown) at [facility]. 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 (unknown) (no (unknown) (unknown) [...] notified: No unknown) (unknown) (no (unknown) (unknown) [facility] (units (unknown) date) [address] unknown) [place] [address] (unknown) (no (unknown) (unknown) Label Comments: (units [...] (unknown) date) unknown) (unknown) (no (unknown) (unknown) [id number] (units (unkno wn) date) unknown) (unknown) (no [...] (unknown) (unknown) : 1995 (units (unknown) date) Acct:[id number] unknown) (unknown) (no (unknown) (unknown) Date Patient [...] (unknown) (unknown) Jhonstanley (units (un known) date) [place]-Schnaeidr, unknown) DO (unknown) (no (unknown) (unknown) Labs [...] notified: No unknown) (unknown) (no (unknown) (unknown) [facility] (units (unknown) date) [address] [facility] [address] unknown) [place] [address] (unknown) (no (unknown) (unknown) Label Comments: (units [...] A REFERRAL TO A (units (unknown) date) ADVERTISING COORDINATOR AT THE unknown) TEACHING / TERTIARY FACILITY [...] s (unknown) date) CARE PHYSICIAN OR unknown) DEICER TESTER WITHIN 2-4 WEEKS (unknown) (no (unknown) (unknown) [...] (unknown) date) unknown) (unknown) (no (unknown) (unknown) [id number] (units (unkno wn) date) unknown) (unknown) (no [...] (unknown) (unknown) : 1995 (units (unknown) date) Acct:[id number] unknown) (unknown) (no (unknown) (unknown) Date Patient [...] notified: No unknown) (unknown) (no (unknown) (unknown) [facility] (units (unknown) date) [address] [place] [address] unknown) [place] [address] (unknown) (no (unknown) (unknown) Label Comments: (units [...] A REFERRAL TO A (units (unknown) date) ADVERTISING COORDINATOR AT THE unknown) TEACHING / TERTIARY FACILITY [...] s (unknown) date) CARE PHYSICIAN OR unknown) DEICER TESTER WITHIN 2-4 WEEKS (unknown) (no (unknown) (unknown) [...] (unknown) date) unknown) (unknown) (no (unknown) (unknown) [id number] (units (unkno wn) date) unknown) (unknown) (no [...] (unknown) (unknown) : 1995 (units (unknown) date) Acct:[id number] unknown) (unknown) (no (unknown) (unknown) Date Patient [...] notified: No unknown) (unknown) (no (unknown) (unknown) [facility] (units (unknown) date) [address] [place] [address] unknown) [place] [address] (unknown) (no (unknown) (unknown) Label Comments: (units [...] A REFERRAL TO A (units (unknown) date) ADVERTISING COORDINATOR AT THE unknown) TEACHING / TERTIARY FACILITY [...] s (unknown) date) CARE PHYSICIAN OR unknown) DEICER TESTER WITHIN 2-4 WEEKS (unknown) (no (unknown) (unknown) [...] (unknown) date) unknown) (unknown) (no (unknown) (unknown) [id number] (units (unkno wn) date) unknown) (unknown) (no [...] (unknown) (unknown) : 1995 (units (unknown) date) Acct:[id number] unknown) (unknown) (no (unknown) (unknown) Date Patient [...] description facility (no date) Never smoked tobacco ([facility] Vital Signs date measurement value units +0000 temperature_metric temperature_metric 36.56 C [id number]+0000 temperature_standard temperature_standard 9 7.8 F [id number]+0000 weight_metric weight_metric 34.98 kg +0000 weight_standard weight_standard 77.11 lb [id number]+0000 BP_diastolic BP_diastolic 78 mm[H g] 06106974432809+0000 BP_systolic BP_systolic 120 mm[Hg] 39215110779763+0000 heart_rate heart_rate 80 /min 04609943084117+0000 respiration_rate respiration_rate 16 /min 55422988598831+0000 BP_diastolic BP_diastolic 69 mm[H g] 05197335798200+0000 BP_systolic BP_systolic 118 mm[Hg] 62120408263217+0000 heart_rate heart_rate 91 /min 08060697671103+0000 height_metric height_metric 160 cm +0000 height_standard height_standard 62.99 in +0000 respiration_rate respiration_rate 17 /min 98592372297660+0000 temperature_metric temperature_metric 36.28 C +0000 temperature_standard temperature_standard 9 7.3 F [id number]+0000 weight_metric weight_metric 34.02 kg +0000 weight_standard weight_standard 75 lb 46223550104419+0000 BP_diastolic BP_diastolic 69 mm[H g] +0000 BP_systolic BP_systolic 114 mm[Hg] +0000 heart_rate heart_rate 77 /min +0000 respiration_rate respiration_rate 18 /min +0000 temperature_metric temperature_metric 36.39 C +0000 temperature_standard temperature_standard 9 7.5 F
[2022-03-18 20:36] LABS: MUDS CUTOFF CONCENTRATIONS CUTOFF CONC BELOW:
[2022-03-18 20:37] LABS: BILIRUBIN,URINE NEGATIVE (NEGATIVE); GLUCOSE, URINE (UA) NEGATIVE (NEGATIVE); KETONES,URINE (UA) NEGATIVE (NEGATIVE); LEUKOCYTE ESTERASE, URINE NEGATIVE (NEGATIVE); NITRITE,URINE NEGATIVE (NEGATIVE); OCCULT BLOOD,URINE NEGATIVE (NEGATIVE); PH,URINE 6.5 PH (5.0-7.5); PROTEIN,URINE NEGATIVE (NEGATIVE); UROBILINOGEN,URINE 0.2 (NORMAL) E.U./dL (NORMAL)
[2022-03-18 20:40] LABS: CLARITY,URINE CLEAR (CLEAR); HCG UR QUAL POSITIVE
[2022-03-18] MEDS ORDERED: SODIUM CHLORIDE 0.9% 1,000 ML IV STA (20:44)
[2022-03-18] MEDS ORDERED: HALOPERIDOL 5 MG/ML VIAL IVP STA (20:44)
--- NOTE | 2022-03-18 20:47 | ED Physician Documentation ---
History of Present Illness - Stated complaint Stated Complaint: ABD PX - Chief complaint Chief Complaint: Abd Pain - History obtained from History obtained from: Patient - History of Present Illness Timing: Chronic - Additonal information Additional information: 26 yo female with history of gallbladder dyskinesia, fibromyalgia presents for abdominal pain with nausea and vomiting. Patient has been dealing with RUQ abdominal pain for 2 years and this is her chronic pain. She states that she has an appointment next month to talk to her surgeon about getting her gallbladder removed. She states that she is chronically on Percocets, however on Monday her prescription was not refilled and she is out of medications and has been out for the last 2 days. She states that when she runs out of pain medication she vomits a lot and becomes dehydrated. She reports 1 episode of bright red blood in her stool, however states that it is now gone back down to its normal color. Patient has been seen in numerous locations for similar presentation. Numerous narcotic rx sent to pharmacies by various physicians. Review of Systems Ten Systems: 10 systems reviewed and negative Constitutional: denies: Fever, Chills GI: reports: Abdominal Pain, Nausea, Vomiting, Bloody / black stool (resolved). 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, Other : Chronic bladder infection HEENT: None Psych: Depression, Anxiety, Panic attacks, Claustrophobia Musculoskeletal: Fibromyalgia, Other Derm: None - Past Surgical History Past Surgical History: Yes General: Appendectomy, Colonoscopy, EGD Ortho: Arthroscopic surgery HEENT: Other - Present Medications Home Medications: Ambulatory Orders Medication Instructions Recorded Confirmed DULoxetine [Cymbalta] 30 mg PO DAILY 11/03/21 11/03/21 Ketorolac [Toradol] 10 mg PO Q6H PRN #30 tablet 11/03/21 Omeprazole 40 mg PO DAILY 11/03/21 11/03/21 LORazepam [Ativan] 1 mg PO TID PRN #6 tablet 12/15/21 Metoclopramide [Reglan] 10 mg PO Q6H PRN #10 tablet 12/15/21 Oxycodone HCl/Acetaminophen 1 each PO Q6H PRN #8 tablet 12/24/21 [Percocet 5-325 mg Tablet] Phenazopyridine HCl [Pyridium] 200 mg PO TID PRN #6 tablet 12/24/21 Oxycodone HCl/Acetaminophen 1 each PO Q6H PRN #12 tablet 01/27/22 [Percocet 5-325 mg Tablet] Acetaminophen [Acetaminophen Extra 500 mg PO QID PRN #50 tablet 02/13/22 Strength] Labetalol [Trandate] 100 mg PO DAILY #20 tablet 02/13/22 oxyCODONE [Roxicodone] 5 mg PO TID PRN #15 tablet 02/13/22 Dicyclomine [Bentyl] 1 - 2 tab PO QID PRN #20 cap 03/18/22 Naproxen 500 mg PO BID PRN #15 tablet 03/18/22 Ondansetron Odt [Zofran] 4 mg TL Q6H PRN #10 tablet 03/18/22 - Allergies Allergies/Adverse Reactions: Allergies Allergy/AdvReac Type Severity Reaction Status Date / Time amoxicillin Allergy Unknown Verified 03/18/22 20:12 doxycycline Allergy Unknown Verified 03/18/22 20:12 lidocaine Allergy Edema Verified 03/18/22 20:12 Penicillins Allergy Rash Verified 03/18/22 20:12 - Social History Does the pt smoke?: No Smoking Status: Never smoker Does the pt drink ETOH?: Yes Does the pt have substance abuse?: No - Immunizations Immunizations are current?: Yes - POLST Patient has POLST: No PD ED PE NORMAL - Vitals Vital signs reviewed: Yes - General General: Alert and oriented X 3, No acute distress, Well developed/nourished - HEENT HEENT: Atraumatic, PERRL, EOMI, Ears normal, Moist mucous membranes, Pharynx benign, Dentition benign, Other - Neck Neck: Supple, no meningeal sign, No bony TTP, No adenopathy, Thyroid normal, No JVD, No bruit, C-Spine cleared by NEXUS criteria, Other - Cardiac Cardiac: RRR, No murmur, No gallop, No rub, Strong equal pulses, Other - Respiratory Respiratory: No respiratory distress, Clear bilaterally, Other - Abdomen Abdomen: Soft, Non tender, Non distended, No organomegaly, Other (No rebound, no guarding, no significant ttp) - Back Back: No CVA TTP, No spinal TTP - Derm Derm: Normal color, Warm and dry, No rash - Extremities Extremities: No deformity, No tenderness to palpate, Normal ROM s pain, No edema, No calf tenderness / cord - Neuro Neuro: Alert and oriented X 3, 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, No motor deficit, No sensory deficit, Normal speech - Psych Psych: Normal mood, Normal affect Results - Vitals Vitals: Vital Signs - 24 hr 03/18/22 03/18/22 03/18/22 20:07 21:10 21:30 Temperature 36.8 C Heart Rate 101 H 107 H 107 H Respiratory 16 18 18 Rate Blood Pressure 137/66 H 114/75 114/75 O2 Saturation 99 100 100 03/18/22 21:41 Temperature 37 C Heart Rate 106 H Respiratory 18 Rate Blood Pressure 122/75 O2 Saturation 100 Oxygen O2 Source Room air - Labs Labs: Laboratory Tests 03/18/22 03/18/22 03/18/22 20:16 20:42 20:42 WBC 9.2 RBC 4.26 Hgb 13.7 Hct 40.5 MCV 95.1 MCH 32.2 H MCHC 33.8 RDW 12.5 Plt Count 322 MPV 9.2 Neut # (Auto) 6.2 Lymph # (Auto) 2.3 [place] # (Auto) 0.5 Eos # (Auto) 0.1 Baso # (Auto) 0.0 Absolute Nucleated RBC 0.00 Nucleated RBC % 0.0 Sodium 134 L Potassium 3.2 L Chloride 103 Carbon Dioxide 23 Anion Gap 8.0 BUN 9 Creatinine 0.9 Estimated GFR (MDRD) 76 L Glucose 86 Calcium 9.3 Total Bilirubin 0.6 AST 20 ALT 15 Alkaline Phosphatase 77 Total Protein 7.4 Albumin 4.2 Globulin 3.2 Albumin/Globulin Ratio 1.3 Lipase 30 Urine Color YELLOW Urine Clarity CLEAR Urine pH 6.5 Ur Specific [place] 1.020 Urine Protein NEGATIVE Urine Glucose (UA) NEGATIVE Urine Ketones NEGATIVE Urine Occult Blood NEGATIVE Urine Nitrite NEGATIVE Urine Bilirubin NEGATIVE Urine Urobilinogen 0.2 (NORMAL) Ur Leukocyte Esterase NEGATIVE Ur Microscopic Review NOT INDICATED Urine Culture Comments NOT INDICATED Urine HCG, Qual POSITIVE Urine Opiates Screen NEGATIVE Ur Oxycodone Screen POSITIVE H Urine Methadone Screen NEGATIVE Ur Propoxyphene Screen NEGATIVE Ur Barbiturates Screen NEGATIVE Ur Tricyclics Screen NEGATIVE Ur Phencyclidine Scrn NEGATIVE Ur Amphetamine Screen NEGATIVE U Methamphetamines Scrn NEGATIVE U Benzodiazepines Scrn NEGATIVE Urine Cocaine Screen NEGATIVE U Cannabinoids Screen NEGATIVE PD MEDICAL DECISION MAKING - ED course Complexity details: reviewed old records, reviewed results, re-evaluated patient, d/w patient ED course: Well-appearing patient with worsening of chronic pain. Patient seen in numerous locations for her abdominal pain, there are numerous narcotic prescriptions sent to pharmacy, most recently 15 tablets of Percocets sent 1 week ago. Labs are negative for acute findings. Patient's abdomen is soft, there is absolutely no reproducible tenderness palpation on my exam. Patient was given liter of IV fluids, prescriptions for pain and nausea. No narcotics indicated at this time. Departure - Departure Disposition: Home, Self Care Clinical Impression: Biliary dyskinesia Condition: Good Instructions: Abdominal Pain, ED Diet Low Fat Prescriptions: Dicyclomine [Bentyl] 1 - 2 tab PO QID PRN #20 cap PRN Reason: Abdominal Pain Naproxen 500 mg PO BID PRN #15 tablet PRN Reason: Pain Ondansetron Odt [Zofran] 4 mg TL Q6H PRN #10 tablet PRN Reason: Nausea / Vomiting Discharge Date/Time: 03/18/22 21:47
[2022-03-18 20:49] LABS: AMPHETAMINE SCREEN,URINE NEGATIVE (NEGATIVE); BARBITURATE SCREEN,UR NEGATIVE (NEGATIVE); BENZODIAZEPINES SCREEN, URINE NEGATIVE (NEGATIVE); COCAINE SCREEN URINE NEGATIVE (NEGATIVE); METHADONE SCREEN, URINE NEGATIVE (NEGATIVE); METHAMPHETAMINES SCREEN, URINE NEGATIVE (NEGATIVE); OPIATE SCREEN, URINE NEGATIVE (NEGATIVE); OXYCODONE SCREEN, URINE POSITIVE (NEGATIVE); PROPOXYPHENE SCREEN, URINE NEGATIVE (NEGATIVE); THC CANNABINOID SCREEN, URINE NEGATIVE (NEGATIVE); TRICYCLIC ANTIDEPRESSANT,URINE NEGATIVE (NEGATIVE)
[2022-03-18 20:50] LABS: BASOPHILS % (AUTO) 0.3 %; EOSINOPHILS # (AUTO) 0.1 10^3/uL (0.0-0.7); EOSINOPHILS % (AUTO) 0.9 %; HCT - HEMATOCRIT 40.5 % (37.0-47.0); HGB - HEMOGLOBIN 13.7 g/dL (12.0-16.0); LYMPHOCYTES # (AUTO) 2.3 10^3/uL (1.5-3.5); LYMPHOCYTES % (AUTO) 25.5 %; MEAN CORPUSCULAR HEMOGLOBIN 32.2 pg (27.0-31.0); MEAN CORPUSCULAR HGB CONC 33.8 g/dL (32.0-36.0); MEAN CORPUSCULAR VOLUME 95.1 fL (81.0-99.0); MEAN PLATELET VOLUME 9.2 fL (7.9-10.8); MONOCYTES # (AUTO) 0.5 10^3/uL (0.0-1.0); MONOCYTES % (AUTO) 5.3 %; NEUTROPHILS # (AUTO) 6.2 10^3/uL (1.5-6.6); NEUTROPHILS % (AUTO) 67.8 %; PLT - PLATELET COUNT 322 10^3/uL (130-450); RED BLOOD COUNT 4.26 10^6/uL (4.20-5.40); RED CELL DISTRIBUTION WIDTH 12.5 % (12.0-15.0); WHITE BLOOD COUNT 9.2 x10^3/uL (4.8-10.8)
[2022-03-18 21:03] LABS: ALBUMIN 4.2 g/dL (3.2-5.5); ALBUMIN/GLOBULIN RATIO 1.3 (1.0-2.2); BILIRUBIN,TOTAL 0.6 mg/dL (0.2-1.0); CALCIUM 9.3 mg/dL (8.5-10.3); CREATININE 0.9 mg/dL (0.4-1.0); POTASSIUM 3.2 mmol/L (3.5-5.0); TOTAL PROTEIN 7.4 g/dL (6.7-8.2)
[2022-03-18 21:41] VITALS: BP 122/75
== END 2022-03-18 21:47 | disposition home or self-care (01) ==
LOC: ED 20:03
DX: K82.8 Other specified diseases of gallbladder (principal); G89.29 Other chronic pain; F32.A Depression, unspecified; F41.9 Anxiety disorder, unspecified
CPT/HCPCS: 36415; 80053; 80306; 81001; 81003; 81025; 83690; 85025; 87086; 96374; 99284

== ENCOUNTER 2022-11-08 11:44 | Emergency (ER) | payer OTHER ==
[2022-11-08 12:23] LABS: BASOPHILS % (AUTO) 0.3 %; EOSINOPHILS # (AUTO) 0.1 10^3/uL (0.0-0.7); EOSINOPHILS % (AUTO) 1.5 %; HCT - HEMATOCRIT 40.6 % (37.0-47.0); HGB - HEMOGLOBIN 13.5 g/dL (12.0-16.0); LYMPHOCYTES # (AUTO) 3.8 10^3/uL (1.5-3.5); LYMPHOCYTES % (AUTO) 52.2 %; MEAN CORPUSCULAR HEMOGLOBIN 31.2 pg (27.0-31.0); MEAN CORPUSCULAR HGB CONC 33.3 g/dL (32.0-36.0); MEAN CORPUSCULAR VOLUME 93.8 fL (81.0-99.0); MEAN PLATELET VOLUME 9.2 fL (7.9-10.8); MONOCYTES # (AUTO) 0.3 10^3/uL (0.0-1.0); MONOCYTES % (AUTO) 4.7 %; NEUTROPHILS % (AUTO) 40.9 %; PLT - PLATELET COUNT 311 10^3/uL (130-450); RED BLOOD COUNT 4.33 10^6/uL (4.20-5.40); RED CELL DISTRIBUTION WIDTH 11.9 % (12.0-15.0); WHITE BLOOD COUNT 7.2 x10^3/uL (4.8-10.8)
[2022-11-08 12:37] LABS: ALBUMIN 3.9 g/dL (3.2-5.5); ALBUMIN/GLOBULIN RATIO 1.1 (1.0-2.2); BILIRUBIN,TOTAL 0.3 mg/dL (0.2-1.0); POTASSIUM 3.4 mmol/L (3.5-5.0); TOTAL PROTEIN 7.4 g/dL (6.7-8.2)
[2022-11-08] MEDS ORDERED: HYDROmorphone 1 MG/ML CARPUJECT IVP STA ×2 (12:38→15:12)
[2022-11-08 12:42] LABS: BILIRUBIN,URINE NEGATIVE (NEGATIVE); GLUCOSE, URINE (UA) NEGATIVE (NEGATIVE); KETONES,URINE (UA) NEGATIVE (NEGATIVE); LEUKOCYTE ESTERASE, URINE TRACE (NEGATIVE); NITRITE,URINE NEGATIVE (NEGATIVE); OCCULT BLOOD,URINE MODERATE (NEGATIVE); PROTEIN,URINE NEGATIVE (NEGATIVE); UROBILINOGEN,URINE 0.2 (NORMAL) E.U./dL (NORMAL)
--- NOTE | 2022-11-08 12:44 | ED Physician Documentation ---
PD HPI ABD PAIN - Stated complaint Stated Complaint: ABD PX,BACK PX,NOSE BLEED - Chief complaint Chief Complaint: Abd Pain - History obtained from History obtained from: Patient, Family - History of Present Illness Timing - onset: Last night Timing - duration: Days (1) Timing - details: Abrupt onset Pain level max: 8 Pain level now: 8 Quality: Aching, Pain Location: Suprapubic Radiation: Other (R pelvic) Associated symptoms: Nausea, Vomiting. No: Fever, Diarrhea - Additional information Additional information: 27 year old female 3 weeks s/p vaginal delivery. She states that she developed suprapubic/pelvic pain last night. Has continued today. She states the delivery was at [facility] in [place]. She states she had preeclampsia but no other complications. No fevers. No chills. No diarrhea. No vaginal bleeding or discharge. Nothing seems to make it better or worse. She took her oxycodone at home without relief. 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, Other : Chronic bladder infection HEENT: None Psych: Depression, Anxiety, Panic attacks, Claustrophobia Musculoskeletal: Fibromyalgia, Other Derm: None - Past Surgical History Past Surgical History: Yes General: Appendectomy, Colonoscopy, EGD Ortho: Arthroscopic surgery HEENT: Other - Present Medications Home Medications: Ambulatory Orders Medication Instructions Recorded Confirmed DULoxetine [Cymbalta] 30 mg PO DAILY 11/03/21 11/03/21 Ketorolac [Toradol] 10 mg PO Q6H PRN #30 tablet 11/03/21 Omeprazole 40 mg PO DAILY 11/03/21 11/03/21 LORazepam [Ativan] 1 mg PO TID PRN #6 tablet 12/15/21 Metoclopramide [Reglan] 10 mg PO Q6H PRN #10 tablet 12/15/21 Oxycodone HCl/Acetaminophen 1 each PO Q6H PRN #8 tablet 12/24/21 [Percocet 5-325 mg Tablet] Phenazopyridine HCl [Pyridium] 200 mg PO TID PRN #6 tablet 12/24/21 Oxycodone HCl/Acetaminophen 1 each PO Q6H PRN #12 tablet 01/27/22 [Percocet 5-325 mg Tablet] Acetaminophen [Acetaminophen Extra 500 mg PO QID PRN #50 tablet 02/13/22 Strength] Labetalol [Trandate] 100 mg PO DAILY #20 tablet 02/13/22 oxyCODONE [Roxicodone] 5 mg PO TID PRN #15 tablet 02/13/22 Dicyclomine [Bentyl] 1 - 2 tab PO QID PRN #20 cap 03/18/22 Naproxen 500 mg PO BID PRN #15 tablet 03/18/22 Ondansetron Odt [Zofran] 4 mg TL Q6H PRN #10 tablet 03/18/22 Metoclopramide [Reglan] 10 mg PO Q6H PRN #20 tablet 04/05/22 methocarbamoL [Robaxin] 500 mg PO Q6H PRN #20 tablet 11/08/22 - Allergies Allergies/Adverse Reactions: Allergies Allergy/AdvReac Type Severity Reaction Status Date / Time amoxicillin Allergy Unknown Verified 11/08/22 12:03 doxycycline Allergy Unknown Verified 11/08/22 12:03 Iodinated Contrast Media Allergy Hives Verified 11/08/22 12:03 lidocaine Allergy Edema Verified 11/08/22 12:03 Penicillins Allergy Rash Verified 11/08/22 12:03 - Social History Does the pt smoke?: No Smoking Status: Never smoker Does the pt drink ETOH?: Yes Does the pt have substance abuse?: No - Immunizations Immunizations are current?: Yes - POLST Patient has POLST: No PD ED PE NORMAL - Vitals Vital signs reviewed: Yes - General General: Alert and oriented X 3, No acute distress - HEENT HEENT: PERRL, Moist mucous membranes - Neck Neck: Supple, no meningeal sign - Cardiac Cardiac: RRR, Strong equal pulses - Respiratory Respiratory: No respiratory distress, Clear bilaterally - Abdomen Abdomen: Soft, Non distended, Other (Tender to palpation suprapubic without peritoneal signs.) - Derm Derm: Warm and dry - Extremities Extremities: No edema - Neuro Neuro: Alert and oriented X 3 - Psych Psych: Normal mood, Normal affect Results - Vitals Vitals: Vital Signs - 24 hr 11/08/22 11/08/22 11/08/22 11:55 12:45 15:31 Temperature 36.7 C Heart Rate 108 H 106 H 97 Respiratory 16 18 18 Rate Blood Pressure 126/85 H 125/91 H 103/69 O2 Saturation 100 99 97 Oxygen O2 Source Room air - Labs Labs: Laboratory Tests 11/08/22 11/08/22 11/08/22 12:19 12:19 12:20 WBC 7.2 RBC 4.33 Hgb 13.5 Hct 40.6 MCV 93.8 MCH 31.2 H MCHC 33.3 RDW 11.9 L Plt Count 311 MPV 9.2 Neut # (Auto) 3.0 Lymph # (Auto) 3.8 [place] # (Auto) 0.3 Eos # (Auto) 0.1 Baso # (Auto) 0.0 Absolute Nucleated RBC 0.00 Nucleated RBC % 0.0 Sodium 135 Potassium 3.4 L Chloride 105 Carbon Dioxide 21 Anion Gap 9.0 BUN 7 Creatinine 1.0 Estimated GFR (MDRD) 67 L Glucose 100 Calcium 9.0 Total Bilirubin 0.3 AST 20 ALT 16 Alkaline Phosphatase 105 Total Protein 7.4 Albumin 3.9 Globulin 3.5 Albumin/Globulin Ratio 1.1 Lipase 25 Urine Color YELLOW Urine Clarity SL. CLOUDY Urine pH 6.0 Ur Specific [place] 1.020 Urine Protein NEGATIVE Urine Glucose (UA) NEGATIVE Urine Ketones NEGATIVE Urine Occult Blood MODERATE H Urine Nitrite NEGATIVE Urine Bilirubin NEGATIVE Urine Urobilinogen 0.2 (NORMAL) Ur Leukocyte Esterase TRACE H Urine RBC 0-5 Urine WBC 4-5 Ur Squamous Epith Cells MANY Squamous H Urine Bacteria Few Urine Mucus Moderate Strands Ur Microscopic Review INDICATED Urine Culture Comments NOT INDICATED - Rads (name of study) Pelvic ultrasound Relevant Findings:: Final report received, See rad report CT abdomen pelvis Relevant Findings:: Final report received, See rad report PD Medical Decision Making - ED course Complexity details: reviewed results, re-evaluated patient, considered differential (No evidence of endometritis, retained products), d/w patient ED course: Upon reevaluation, the patient states that she has had this pain ongoing for 3 years. She states that she has had a colonoscopy, endoscopy, multiple CAT scans and multiple specialist without cause found. No acute findings on laboratory testing including CBC, CMP and urinalysis. No acute findings on ultrasound or CT to explain the patient's symptoms. Pain well controlled. She states that a muscle relaxant has seemed to help in the past. She is not breast-feeding. Therefore we will trial her on a muscle relaxant. Has pain medication at home. Abdomen is soft, nontender nondistended on serial exam. Patient counseled regarding signs and symptoms for which I believe and urgent re-evaluation would be necessary. Patient with good understanding of and agreement to plan and is comfortable going home at this time This document was made in part using voice recognition software. While efforts are made to proofread this document, sound alike and grammatical errors may occur. Departure - Departure Disposition: 01 Home, Self Care Clinical Impression: Abdominal pain Condition: Good Instructions: ED Abdominal Pain Female Non-Specific Abdominal Pain Follow-Up: your,doctor in 1 week [Other] Prescriptions: methocarbamoL [Robaxin] 500 mg PO Q6H PRN #20 tablet PRN Reason: muscle spasm Comments: Your prescription was sent to [facility] in [place]. Please follow-up with your doctor for further care. The cause of your symptoms is unclear today. Your ultrasound, CT scan and laboratory testing did not show any acute abnormalities Discharge Date/Time: 11/08/22 16:15
[2022-11-08 12:50] LABS: BACTERIA,URINE Few /HPF (None Seen); CLARITY,URINE SL. CLOUDY (CLEAR); MUCUS,URINE Moderate Strands; RBC,URINE 0-5 /HPF (0-5); SQUAMOUS EPITHELIAL CELL,UR MANY Squamous (<= Few)
--- NOTE | 2022-11-08 13:50 | Ultrasound Report ---
PROCEDURE: Pelvic w/Transvag+Doppler Comp INDICATIONS: pelvic pain 3 weeks post TECHNIQUE: Real-time scanning was performed of the pelvic organs, with image documentation. Additional endovagi nal scanning was necessary due to incomplete visualization of the adnexal and endometrial structures by transabdominal scanning. Doppler interrogation was performed of the ovaries bilaterally. COMPARISON: None. FINDINGS: No pathologic free abdominal or pelvic fluid. Uterus: Uterus is normal in size at 8.5 x 3.9 x 6.3 cm. The endometrium measures 4.2 mm in combined thickness. Ovaries: Right ovary measures 2.0 x 1.7 x 1.5 cm, volume 2.6 cc. Left ovary measures 2.6 x 1.5 x 1 0 .4 cc, volume 2.7 cc. Normal appearing arterial and venous waveforms are confirmed to each ovary.] Other: No free pelvic fluid. IMPRESSION: Unremarkable exam. Reviewed by: Sussy Rivers MD on 11/08/2022 1:49 PM PDT Approved by: Sussy Rivers MD on 11/08/2022 1:49 PM PDT Station ID: [id number]
[2022-11-08] MEDS ORDERED: KETOROLAC 30 MG/ML VIAL IVP STA (14:08)
[2022-11-08] MEDS ORDERED: ONDANSETRON 4 MG/2 ML VIAL IVP STA (15:12)
[2022-11-08 15:32] VITALS: BP 103/69
--- NOTE | 2022-11-08 15:43 | CT Report ---
PROCEDURE: ABDOMEN/PELVIS WO INDICATIONS: R lower abd pain TECHNIQUE: Noncontrast 5 mm thick sections acquired from the diaphragms to the symphysis. 5 mm coronal and sagi ttal reformats were then performed. For radiation dose reduction, the following was used: automated exposure control, adjustment of mA and/or kV according to patient size. COMPARISON: CT abdomen pelvis 6, 12/24/2021 FINDINGS: Image quality: Excellent. ABDOMEN: Lung bases: Lung bases are clear. Heart size is normal. Solid organs: Liver and spleen are normal in size. Low-attenuation focus within the right hepatic lo be corresponds to hypervascular seen on prior exam suggestive of hemangioma. Gallbladder has been rem brennon. Pancreas is normal in contours. No adrenal nodules. Kidneys are normal in size, without hydr onephrosis. Punctate nonobstructing right renal calculus is present. Peritoneum and bowel: Unenhanced bowel loops demonstrate normal wall thickness and caliber. No free fluid or air. Clips are present adjacent to the cecum suggestive of prior appendectomy. The appendi x is not visualized. Nodes and vessels: No retroperitoneal or mesenteric adenopathy by size criteria. Aorta and inferior vena cava are normal in caliber. Miscellaneous: No ventral hernias. PELVIS: Genitourinary: Bladder wall thickness is normal. Miscellaneous: No inguinal hernias or adenopathy. Bones: No suspicious bony lesions. No vertebral body compression fractures. IMPRESSION: Nonobstructing right renal calculus. Reviewed by: Sussy Rivers MD on 11/08/2022 3:42 PM PDT Approved by: Sussy Rivers MD on 11/08/2022 3:42 PM PDT Station ID: [id number]
[2022-11-08] MEDS ORDERED: methocarbamoL 500 MG TABLET PO STA (16:04)
== END 2022-11-08 16:15 | disposition home or self-care (01) ==
LOC: ED 11:44
DX: R10.2 Pelvic and perineal pain (principal)
CPT/HCPCS: 36415; 74176; 76830; 76856; 80053; 81001; 83690; 85025; 93975; 96374; 96375; 96376; 99284; A9270; J1170; 81003; 87086

== ENCOUNTER 2023-01-09 14:48 | Emergency (ER) | payer OTHER ==
[2023-01-09 16:14] LABS: BASOPHILS % (AUTO) 0.4 %; EOSINOPHILS # (AUTO) 0.2 10^3/uL (0.0-0.7); EOSINOPHILS % (AUTO) 2.8 %; HCT - HEMATOCRIT 41.7 % (37.0-47.0); HGB - HEMOGLOBIN 14.3 g/dL (12.0-16.0); LYMPHOCYTES # (AUTO) 3.4 10^3/uL (1.5-3.5); LYMPHOCYTES % (AUTO) 47.4 %; MEAN CORPUSCULAR HEMOGLOBIN 31.2 pg (27.0-31.0); MEAN CORPUSCULAR HGB CONC 34.3 g/dL (32.0-36.0); MEAN PLATELET VOLUME 9.4 fL (7.9-10.8); MONOCYTES # (AUTO) 0.4 10^3/uL (0.0-1.0); MONOCYTES % (AUTO) 5.5 %; NEUTROPHILS # (AUTO) 3.1 10^3/uL (1.5-6.6); NEUTROPHILS % (AUTO) 43.9 %; PLT - PLATELET COUNT 338 10^3/uL (130-450); RED BLOOD COUNT 4.58 10^6/uL (4.20-5.40); RED CELL DISTRIBUTION WIDTH 12.6 % (12.0-15.0); WHITE BLOOD COUNT 7.1 x10^3/uL (4.8-10.8)
[2023-01-09 16:22] LABS: BILIRUBIN,URINE NEGATIVE (NEGATIVE); GLUCOSE, URINE (UA) NEGATIVE (NEGATIVE); KETONES,URINE (UA) NEGATIVE (NEGATIVE); LEUKOCYTE ESTERASE, URINE NEGATIVE (NEGATIVE); NITRITE,URINE NEGATIVE (NEGATIVE); OCCULT BLOOD,URINE NEGATIVE (NEGATIVE); PH,URINE 5.5 PH (5.0-7.5); PROTEIN,URINE NEGATIVE (NEGATIVE); UROBILINOGEN,URINE 0.2 (NORMAL) E.U./dL (NORMAL)
[2023-01-09 16:23] LABS: ALBUMIN 3.9 g/dL (3.2-5.5); ALBUMIN/GLOBULIN RATIO 1.1 (1.0-2.2); BILIRUBIN,TOTAL 0.3 mg/dL (0.2-1.0); CALCIUM 9.1 mg/dL (8.5-10.3); CREATININE 0.7 mg/dL (0.4-1.0); POTASSIUM 4.2 mmol/L (3.5-5.0); TOTAL PROTEIN 7.5 g/dL (6.7-8.2)
[2023-01-09 16:26] LABS: CLARITY,URINE CLEAR (CLEAR); HCG UR QUAL NEGATIVE
[2023-01-09] MEDS ORDERED: iohexoL-300 100 ML VIAL ONE (16:37)
[2023-01-09] MEDS: ONDANSETRON 4 MG/2 ML VIAL IVP STA (17:00)
[2023-01-09] MEDS: MORPHINE 2 MG/ML CARPUJECT IVP STA (17:02)
[2023-01-09] MEDS: SODIUM CHLORIDE 0.9% 1,000 ML IV STA (17:03)
--- NOTE | 2023-01-09 17:53 | ED Physician Documentation ---
PD HPI ABD PAIN - Stated complaint Stated Complaint: SOA,WEAK - Chief complaint Chief Complaint: Abd Pain - History obtained from History obtained from: Patient - Additional information Additional information: Patient is a 27-year-old presenting for evaluation of right-sided abdominal pain Starting this afternoon and feeling like she has to force herself to urinate. She denies having incontinence. Denies dysuria or hematuria. No vomiting or diarrhea. She has chronic abdominal pain and takes oxycodone which she took this afternoon without any significant improvement. Denies fever, chest pain, difficulty breathing. No blood in stools. She is currently on her menstrual cycle and denies concerns for .She has had prior appendectomy and cholecystectomy. Review of Systems Constitutional: denies: Fever Cardiac: denies: Chest pain / pressure Respiratory: denies: Dyspnea GI: reports: Abdominal Pain. 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, Other : Chronic bladder infection HEENT: None Psych: Depression, Anxiety, Panic attacks, Claustrophobia Musculoskeletal: Fibromyalgia, Other Derm: None - Past Surgical History Past Surgical History: Yes General: Appendectomy, Colonoscopy, EGD Ortho: Arthroscopic surgery HEENT: Other - Present Medications Home Medications: Ambulatory Orders Medication Instructions Recorded Confirmed DULoxetine [Cymbalta] 30 mg PO DAILY 11/03/21 11/03/21 Ketorolac [Toradol] 10 mg PO Q6H PRN #30 tablet 11/03/21 Omeprazole 40 mg PO DAILY 11/03/21 11/03/21 LORazepam [Ativan] 1 mg PO TID PRN #6 tablet 12/15/21 Metoclopramide [Reglan] 10 mg PO Q6H PRN #10 tablet 12/15/21 Oxycodone HCl/Acetaminophen 1 each PO Q6H PRN #8 tablet 12/24/21 [Percocet 5-325 mg Tablet] Phenazopyridine HCl [Pyridium] 200 mg PO TID PRN #6 tablet 12/24/21 Oxycodone HCl/Acetaminophen 1 each PO Q6H PRN #12 tablet 01/27/22 [Percocet 5-325 mg Tablet] Acetaminophen [Acetaminophen Extra 500 mg PO QID PRN #50 tablet 02/13/22 Strength] Labetalol [Trandate] 100 mg PO DAILY #20 tablet 02/13/22 oxyCODONE [Roxicodone] 5 mg PO TID PRN #15 tablet 02/13/22 Dicyclomine [Bentyl] 1 - 2 tab PO QID PRN #20 cap 03/18/22 Naproxen 500 mg PO BID PRN #15 tablet 03/18/22 Ondansetron Odt [Zofran] 4 mg TL Q6H PRN #10 tablet 03/18/22 Metoclopramide [Reglan] 10 mg PO Q6H PRN #20 tablet 04/05/22 methocarbamoL [Robaxin] 500 mg PO Q6H PRN #20 tablet 11/08/22 - Allergies Allergies/Adverse Reactions: Allergies Allergy/AdvReac Type Severity Reaction Status Date / Time amoxicillin Allergy Unknown Verified 01/09/23 15:00 doxycycline Allergy Unknown Verified 01/09/23 15:00 Iodinated Contrast Media Allergy Hives Verified 01/09/23 15:00 lidocaine Allergy Edema Verified 01/09/23 15:00 Penicillins Allergy Rash Verified 01/09/23 15:00 - Social History Does the pt smoke?: No Smoking Status: Never smoker Does the pt drink ETOH?: Yes Does the pt have substance abuse?: No - Immunizations Immunizations are current?: Yes - POLST Patient has POLST: No PD ED PE NORMAL - General General: Alert and oriented X 3, No acute distress, Well developed/nourished - HEENT HEENT: Atraumatic - Neck Neck: Supple, no meningeal sign - Cardiac Cardiac: RRR, No murmur - Respiratory Respiratory: No respiratory distress, Clear bilaterally - Abdomen Abdomen: Normal bowel sounds, Soft, Non distended, Other (Mild right upper quadrant tenderness to palpation, no lower abdominal tenderness, no mass, no hernia) - Derm Derm: Warm and dry - Extremities Extremities: No edema - Neuro Neuro: Normal speech Results - Vitals Vitals: Vital Signs - 24 hr 01/09/23 01/09/23 01/09/23 14:56 17:04 19:27 Temperature 37.0 C Heart Rate 99 94 99 Respiratory 16 18 18 Rate Blood Pressure 123/86 H 108/80 122/78 O2 Saturation 100 98 100 Oxygen O2 Source Room air - Labs Labs: Laboratory Tests 01/09/23 01/09/23 01/09/23 16:04 16:04 16:17 WBC 7.1 RBC 4.58 Hgb 14.3 Hct 41.7 MCV 91.0 MCH 31.2 H MCHC 34.3 RDW 12.6 Plt Count 338 MPV 9.4 Neut # (Auto) 3.1 Lymph # (Auto) 3.4 [place] # (Auto) 0.4 Eos # (Auto) 0.2 Baso # (Auto) 0.0 Absolute Nucleated RBC 0.00 Nucleated RBC % 0.0 Sodium 138 Potassium 4.2 Chloride 106 Carbon Dioxide 21 Anion Gap 11.0 BUN 13 Creatinine 0.7 Estimated GFR (MDRD) 100 Glucose 96 Calcium 9.1 Total Bilirubin 0.3 AST 22 ALT 15 Alkaline Phosphatase 101 Total Protein 7.5 Albumin 3.9 Globulin 3.6 Albumin/Globulin Ratio 1.1 Lipase 24 Urine Color YELLOW Urine Clarity CLEAR Urine pH 5.5 Ur Specific [place] >=1.030 H Urine Protein NEGATIVE Urine Glucose (UA) NEGATIVE Urine Ketones NEGATIVE Urine Occult Blood NEGATIVE Urine Nitrite NEGATIVE Urine Bilirubin NEGATIVE Urine Urobilinogen 0.2 (NORMAL) Ur Leukocyte Esterase NEGATIVE Ur Microscopic Review NOT INDICATED Urine Culture Comments NOT INDICATED Urine HCG, Qual NEGATIVE PD Medical Decision Making - ED course Complexity details: reviewed results, re-evaluated patient, d/w patient ED course: Patient is a 27-year-old female presenting for evaluation of right-sided abdominal pain. She has a history of chronic abdominal issues without clear etiology. CBC, chemistries were reviewed without significant findings. CT scan was obtained which I also reviewed and without any significant abnormalities. Her repeat abdominal exam is benign and she does not have peritoneal signs. She was able to urinate here and does not have signs of urinary retention.Patient was counseled on need for close follow-up with PCP as well as her GI doctor regarding her abdominal symptoms.She is aware of return precautions. Departure - Departure Disposition: 01 Home, Self Care Clinical Impression: Abdominal pain Condition: Stable Instructions: ED Abdominal Pain Female Non-Specific Abdominal Pain Comments: The exact cause for your abdominal pain is unclear at this time. Your labs are reassuring and your urine does not show infection. Your bladder does not appear to be enlarged. 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 Discharge Date/Time: 01/09/23 19:27
--- NOTE | 2023-01-09 18:41 | CT Report ---
PROCEDURE: ABDOMEN/PELVIS WO INDICATIONS: R sided abd pain TECHNIQUE: Noncontrast 5 mm thick sections acquired from the diaphragms to the symphysis. 5 mm coronal and sagi ttal reformats were then performed. For radiation dose reduction, the following was used: automated exposure control, adjustment of mA and/or kV according to patient size. COMPARISON: 11/08/2022. FINDINGS: Image quality: Excellent. Lung bases and heart: Unremarkable. Liver: No solid mass. Gallbladder and biliary tree: Gallbladder is surgically absent. No gross biliary ductal dilatation. Spleen: No splenomegaly. Pancreas: No pancreatic ductal dilation. Adrenals: No adrenal nodule. Kidneys and ureters: No hydronephrosis. No renal cystic lesion which requires follow up. No solid mas s. Bowel and peritoneum: No bowel distension. No pathologic free fluid. Postsurgical changes are noted i n right lower quadrant abdomen with multiple surgical clips consistent with prior appendectomy. Lymph nodes: No central or retroperitoneal adenopathy. Vessels: No infrarenal aortic aneurysm. PELVIS Reproductive organs: Unremarkable. Bladder: No abnormal wall thickening, accounting for underdistension. Pelvic lymph nodes: No pelvic adenopathy by size criteria. Bones: No aggressive osseous abnormality. Other: No significant ventral or inguinal hernia. IMPRESSION: No hydronephrosis or obstructing renal stone. Normal-appearing bilateral ureters urinary bladder. Prior appendectomy. No bowel obstruction or abnormal bowel wall thickening. No free fluid of free air . Reviewed by: Víctor Bender MD on 01/09/2023 5:40 PM AKDT Approved by: Víctor Bender MD on 01/09/2023 5:40 PM AKDT Station ID: [id number]
[2023-01-09 19:31] VITALS: BP 122/78
== END 2023-01-09 19:27 | disposition home or self-care (01) ==
LOC: ED 14:48
DX: R10.9 Unspecified abdominal pain (principal)
CPT/HCPCS: 36415; 80053; 81001; 81003; 81025; 83690; 85025; 87086; 96374; 96375; 99283

== ENCOUNTER 2023-02-28 12:41 | Emergency (ER) | payer OTHER ==
--- NOTE | 2023-02-28 13:07 | ED Physician Documentation ---
PD HPI ABD PAIN - Stated complaint Stated Complaint: ABD PX - History obtained from History obtained from: Patient - Additional information Additional information: 27-year-old woman with chronic abdominal pain saw earring maker last week and was tested for C. difficile. She notes that her C. difficile test was positive on MyChart but has not been contacted yet about treatment. She was on another antibiotic a few weeks ago. Its not clear if the C. difficile is the cause of her chronic abdominal pain or a more recent issue. She is always had diarrhea. 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, Other : Chronic bladder infection HEENT: None Psych: Depression, Anxiety, Panic attacks, Claustrophobia Musculoskeletal: Fibromyalgia, Other Derm: None - Past Surgical History Past Surgical History: Yes General: Appendectomy, Colonoscopy, EGD Ortho: Arthroscopic surgery HEENT: Other - Present Medications Home Medications: Ambulatory Orders Medication Instructions Recorded Confirmed DULoxetine [Cymbalta] 30 mg PO DAILY 11/03/21 11/03/21 Ketorolac [Toradol] 10 mg PO Q6H PRN #30 tablet 11/03/21 Omeprazole 40 mg PO DAILY 11/03/21 11/03/21 LORazepam [Ativan] 1 mg PO TID PRN #6 tablet 12/15/21 Metoclopramide [Reglan] 10 mg PO Q6H PRN #10 tablet 12/15/21 Oxycodone HCl/Acetaminophen 1 each PO Q6H PRN #8 tablet 12/24/21 [Percocet 5-325 mg Tablet] Phenazopyridine HCl [Pyridium] 200 mg PO TID PRN #6 tablet 12/24/21 Oxycodone HCl/Acetaminophen 1 each PO Q6H PRN #12 tablet 01/27/22 [Percocet 5-325 mg Tablet] Acetaminophen [Acetaminophen Extra 500 mg PO QID PRN #50 tablet 02/13/22 Strength] Labetalol [Trandate] 100 mg PO DAILY #20 tablet 02/13/22 oxyCODONE [Roxicodone] 5 mg PO TID PRN #15 tablet 02/13/22 Dicyclomine [Bentyl] 1 - 2 tab PO QID PRN #20 cap 03/18/22 Naproxen 500 mg PO BID PRN #15 tablet 03/18/22 Ondansetron Odt [Zofran] 4 mg TL Q6H PRN #10 tablet 03/18/22 Metoclopramide [Reglan] 10 mg PO Q6H PRN #20 tablet 04/05/22 methocarbamoL [Robaxin] 500 mg PO Q6H PRN #20 tablet 11/08/22 Vancomycin [Vancocin] 1 tab PO QID #56 cap 02/28/23 oxyCODONE [Roxicodone] 5 mg PO Q4-6H PRN #7 tablet 02/28/23 - Allergies Allergies/Adverse Reactions: Allergies Allergy/AdvReac Type Severity Reaction Status Date / Time amoxicillin Allergy Unknown Verified 01/09/23 15:00 doxycycline Allergy Unknown Verified 01/09/23 15:00 Iodinated Contrast Media Allergy Hives Verified 01/09/23 15:00 lidocaine Allergy Edema Verified 01/09/23 15:00 Penicillins Allergy Rash Verified 01/09/23 15:00 - Social History Does the pt smoke?: No Smoking Status: Never smoker Does the pt drink ETOH?: Yes Does the pt have substance abuse?: No - Immunizations Immunizations are current?: Yes - POLST Patient has POLST: No PD ED PE NORMAL - Vitals Vital signs reviewed: Yes - General General: Alert and oriented X 3, No acute distress - Abdomen Abdomen: Normal bowel sounds, Soft, Non tender - Neuro Neuro: Alert and oriented X 3, Normal speech - Psych Psych: Normal mood, Normal affect Results - Vitals Vitals: Oxygen O2 Source Room air PD Medical Decision Making - ED course ED course: 27-year-old woman with recent diagnosis of C. difficile wants to start treatment for same. It is unclear if the C. difficile is a more recent phenomenon or the cause of her more chronic pain but will start on vancomycin. Departure - Departure Disposition: 01 Home, Self Care Clinical Impression: C. difficile colitis Condition: Good Record reviewed to determine appropriate education?: Yes Instructions: Clostridium Difficile Infec Prescriptions: oxyCODONE [Roxicodone] 5 mg PO Q4-6H PRN #7 tablet PRN Reason: Pain Vancomycin [Vancocin] 1 tab PO QID #56 cap Comments: It is unclear if the C. difficile is the cause of your chronic problem or a more recent phenomenon from the recent antibiotics. We hope that treatment of the C. difficile will resolve your chronic issues. Follow-up with the GI you are seeing as soon as possible. Return for new or worsening symptoms. I am prescribing a short course of narcotic pain medication for you. These are potentially dangerous and addictive medications that should be used carefully. These medications may constipate you. Take an [id number] stool softener (docusate) twice daily with plenty of water while taking these medications. If you go 24 hours without a bowel movement, take [id number] miralax, per package instructions. Do not drink or drive while taking these medications. If you received narcotic or sedating medications while in the emergency department, do not drive for 24 hours. Store this medication in a safe, secure place and out of reach of children. It is a violation of federal law to give or sell this medication to another person or to use in a manner other than prescribed. The ED will not refill narcotic prescriptions, including prescriptions lost or stolen. To dispose of unwanted medications: 1. [facility] provides a [facility] box for medication in pill form only (no liquids) 8:00 am to 4:30 p.m. Monday-Monday in the lobby of the [facility] [place], [address] Empty pills into ziplock bag before disposal. Call [phone] for information. 2.[employer] is a free service available to all [facility] residents. Go to [email or web address] Note that many narcotic pain relievers also contain Tylenol/acetaminophen. Please ensure that your total dose of acetaminophen from all sources does not exceed 3 g (3000 mg) per day.
[2023-02-28 13:17] VITALS: BP 133/80
[2023-02-28] MEDS: oxyCODONE 5 MG TABLET PO STA (13:36)
== END 2023-02-28 13:41 | disposition home or self-care (01) ==
LOC: ED 12:41
DX: A04.72 Enterocolitis due to Clostridium difficile, not specified as recurrent (principal); Z79.899 Other long term (current) drug therapy
CPT/HCPCS: 99281; 99283

== ENCOUNTER 2023-03-02 23:58 | Emergency (ER) | payer OTHER ==
[2023-03-03 00:12] VITALS: BP 122/91
[2023-03-03] MEDS ORDERED: SIMETHICONE CHEW 80 MG TABLET PO STA (00:30)
[2023-03-03] MEDS ORDERED: oxyCODONE 5 MG TABLET PO STA (00:45)
--- NOTE | 2023-03-03 00:54 | ED Physician Documentation ---
History of Present Illness - Stated complaint Stated Complaint: BLOATING - Chief complaint Chief Complaint: Abd Pain - History obtained from History obtained from: Patient, Family () - Additonal information Additional information: 27yF with chronic abdominal pain, recent diagnosis of c diff p/w bloating abdominal pain progressive over past couple days, worse tonight. patient requesting pain medication, stating tylenol at home does nothing. denies fever. does endorse chronic blood in stool and chronic abd pain for which she see a GI doc. Review of Systems GI: reports: Abdominal Pain, Bloody / black stool. 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, Other : Chronic bladder infection HEENT: None Psych: Depression, Anxiety, Panic attacks, Claustrophobia Musculoskeletal: Fibromyalgia, Other Derm: None - Past Surgical History Past Surgical History: Yes General: Appendectomy, Colonoscopy, EGD Ortho: Arthroscopic surgery HEENT: Other - Present Medications Home Medications: Ambulatory Orders Medication Instructions Recorded Confirmed DULoxetine [Cymbalta] 30 mg PO DAILY 11/03/21 11/03/21 Ketorolac [Toradol] 10 mg PO Q6H PRN #30 tablet 11/03/21 Omeprazole 40 mg PO DAILY 11/03/21 11/03/21 LORazepam [Ativan] 1 mg PO TID PRN #6 tablet 12/15/21 Metoclopramide [Reglan] 10 mg PO Q6H PRN #10 tablet 12/15/21 Oxycodone HCl/Acetaminophen 1 each PO Q6H PRN #8 tablet 12/24/21 [Percocet 5-325 mg Tablet] Phenazopyridine HCl [Pyridium] 200 mg PO TID PRN #6 tablet 12/24/21 Oxycodone HCl/Acetaminophen 1 each PO Q6H PRN #12 tablet 01/27/22 [Percocet 5-325 mg Tablet] Acetaminophen [Acetaminophen Extra 500 mg PO QID PRN #50 tablet 02/13/22 Strength] Labetalol [Trandate] 100 mg PO DAILY #20 tablet 02/13/22 oxyCODONE [Roxicodone] 5 mg PO TID PRN #15 tablet 06/19/22 Dicyclomine [Bentyl] 1 - 2 tab PO QID PRN #20 cap 03/18/22 Naproxen 500 mg PO BID PRN #15 tablet 03/18/22 Ondansetron Odt [Zofran] 4 mg TL Q6H PRN #10 tablet 03/18/22 Metoclopramide [Reglan] 10 mg PO Q6H PRN #20 tablet 04/05/22 methocarbamoL [Robaxin] 500 mg PO Q6H PRN #20 tablet 11/08/22 Vancomycin [Vancocin] 1 tab PO QID #56 cap 02/28/23 oxyCODONE [Roxicodone] 5 mg PO Q4-6H PRN #7 tablet 02/28/23 Simethicone [Gas Relief] 80 mg PO QDAC PRN #10 ea 03/03/23 - Allergies Allergies/Adverse Reactions: Allergies Allergy/AdvReac Type Severity Reaction Status Date / Time amoxicillin Allergy Unknown Verified 03/03/23 00:08 doxycycline Allergy Unknown Verified 03/03/23 00:08 Iodinated Contrast Media Allergy Hives Verified 03/03/23 00:08 lidocaine Allergy Edema Verified 03/03/23 00:08 Penicillins Allergy Rash Verified 03/03/23 00:08 - Social History Does the pt smoke?: No Smoking Status: Never smoker Does the pt drink ETOH?: Yes Does the pt have substance abuse?: No - Immunizations Immunizations are current?: Yes - POLST Patient has POLST: No PD ED PE NORMAL - Vitals Vital signs reviewed: Yes - General General: Alert and oriented X 3, No acute distress, Well developed/nourished - HEENT HEENT: Atraumatic, PERRL, EOMI - Neck Neck: Supple, no meningeal sign - Cardiac Cardiac: RRR - Respiratory Respiratory: No respiratory distress, Clear bilaterally - Abdomen Abdomen: Non tender, Other (mildly distended, soft.) Results - Vitals Vitals: Vital Signs - 24 hr 03/03/23 00:03 Temperature 37 C Heart Rate 113 H Respiratory 17 Rate Blood Pressure 122/91 H O2 Saturation 100 Oxygen O2 Source Room air PD Medical Decision Making - ED course ED course: 27yF with recent dx of c diff, on po vanco, p/w acute on chronic abdominal bloating tonight. requesting pain meds. I provided one time dose of oxycodone as well as gas-x dose here and rx. stymptomatic care and return precautions given. plan to f/u with GI. Departure - Departure Disposition: 01 Home, Self Care Clinical Impression: Abdominal cramping Condition: Stable Instructions: Abdominal Pain Prescriptions: Simethicone [Gas Relief] 80 mg PO QDAC PRN #10 ea PRN Reason: Gas Comments: You were seen in the ED for abdominal bloating. A prescription for simethicone was sent to [facility] electronically. 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
== END 2023-03-03 01:06 | disposition home or self-care (01) ==
LOC: ED 23:58
DX: R10.9 Unspecified abdominal pain (principal)
CPT/HCPCS: 99282; 99283; A9270

== ENCOUNTER 2023-03-28 19:15 | Emergency (ER) | payer OTHER ==
[2023-03-28] MEDS ORDERED: SODIUM CHLORIDE 0.9% 1,000 ML IV STA (19:40)
--- NOTE | 2023-03-28 19:46 | ED Physician Documentation ---
<Malorie Wilkes - Last Filed: 03/28/23 22:24> History of Present Illness - Stated complaint Stated Complaint: ABD PX - Chief complaint Chief Complaint: Abd Pain PD PAST MEDICAL HISTORY - Present Medications Home Medications: Ambulatory Orders Medication Instructions Recorded Confirmed DULoxetine [Cymbalta] 30 mg PO DAILY 11/03/21 11/03/21 Ketorolac [Toradol] 10 mg PO Q6H PRN #30 tablet 11/03/21 Omeprazole 40 mg PO DAILY 11/03/21 11/03/21 LORazepam [Ativan] 1 mg PO TID PRN #6 tablet 12/15/21 Metoclopramide [Reglan] 10 mg PO Q6H PRN #10 tablet 12/15/21 Oxycodone HCl/Acetaminophen 1 each PO Q6H PRN #8 tablet 12/24/21 [Percocet 5-325 mg Tablet] Phenazopyridine HCl [Pyridium] 200 mg PO TID PRN #6 tablet 12/24/21 Oxycodone HCl/Acetaminophen 1 each PO Q6H PRN #12 tablet 01/27/22 [Percocet 5-325 mg Tablet] Acetaminophen [Acetaminophen Extra 500 mg PO QID PRN #50 tablet 02/13/22 Strength] Labetalol [Trandate] 100 mg PO DAILY #20 tablet 02/13/22 oxyCODONE [Roxicodone] 5 mg PO TID PRN #15 tablet 02/13/22 Dicyclomine [Bentyl] 1 - 2 tab PO QID PRN #20 cap 03/18/22 Naproxen 500 mg PO BID PRN #15 tablet 03/18/22 Ondansetron Odt [Zofran] 4 mg TL Q6H PRN #10 tablet 03/18/22 Metoclopramide [Reglan] 10 mg PO Q6H PRN #20 tablet 04/05/22 methocarbamoL [Robaxin] 500 mg PO Q6H PRN #20 tablet 11/08/22 Vancomycin [Vancocin] 1 tab PO QID #56 cap 02/28/23 oxyCODONE [Roxicodone] 5 mg PO Q4-6H PRN #7 tablet 02/28/23 Simethicone [Gas Relief] 80 mg PO QDAC PRN #10 ea 03/03/23 Dicyclomine [Bentyl] 10 mg PO QID PRN #30 cap 03/28/23 Vancomycin [Vancocin] 125 mg PO QID 10 Days #40 cap 03/28/23 - Allergies Allergies/Adverse Reactions: Allergies Allergy/AdvReac Type Severity Reaction Status Date / Time amoxicillin Allergy Unknown Verified 03/28/23 19:29 doxycycline Allergy Unknown Verified 03/28/23 19:29 Iodinated Contrast Media Allergy Hives Verified 03/28/23 19:29 lidocaine Allergy Edema Verified 03/28/23 19:29 Penicillins Allergy Rash Verified 03/28/23 19:29 Departure - Departure Disposition: Home, Self Care Clinical Impression: History of Clostridioides difficile infection Abdominal pain Qualifiers: Abdominal location: generalized Qualified Code(s): R10.84 - Generalized abdominal pain Condition: Stable Instructions: Clostridium Difficile Infec Prescriptions: Dicyclomine [Bentyl] 10 mg PO QID PRN #30 cap PRN Reason: Abdominal Pain Vancomycin [Vancocin] 125 mg PO QID 10 Days #40 cap Comments: you were seen today in the ED for persistent abdominal pain, bloating, mucoid and sometimes bloody stools. You do have a history of C-diff infection Your labs today including urine, CBC and electrolytes were essentially normal. We did test your stool today for c-diff and It is important that you continue to follow closely with GI or longer term management of your abdominal pain and discomfort. I have prescribed Bentyl that can be used PRN for discomfort and bloating Forms: PCP List Discharge Date/Time: 03/28/23 22:41 <Alicia Larios - Last Filed: 03/29/23 08:39> History of Present Illness - Additonal information Additional information: 27-year-old female returns to the emergency department for evaluation of generalized abdominal bloating, constant discomfort low-grade fevers and bloody mucoid stools. She has always had a problem with diarrhea and was recently treated for C. difficile. She finished her vancomycin course about 2 weeks ago. However despite completing this treatment she continues to have persistent symptoms. She is scheduled to see gastroenterology on April 06. Review of Systems Constitutional: reports: Fever Cardiac: reports: Reviewed and negative Respiratory: reports: Reviewed and negative GI: reports: Abdominal Pain, Diarrhea, Bloody / black stool. 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: Ovarian cysts, Other : Chronic bladder infection HEENT: None Psych: Depression, Anxiety, Panic attacks, Claustrophobia Musculoskeletal: Fibromyalgia, Other Derm: None - Past Surgical History Past Surgical History: Yes General: Appendectomy, Colonoscopy, EGD Ortho: Arthroscopic surgery HEENT: Other - Social History Does the pt smoke?: No Smoking Status: Never smoker Does the pt drink ETOH?: Yes Does the pt have substance abuse?: No - Immunizations Immunizations are current?: Yes - POLST Patient has POLST: No PD ED PE NORMAL - General General: Alert and oriented X 3, No acute distress - HEENT HEENT: Atraumatic, Moist mucous membranes - Neck Neck: Supple, no meningeal sign - Cardiac Cardiac: RRR, No murmur - Respiratory Respiratory: No respiratory distress, Clear bilaterally - Abdomen Abdomen: Normal bowel sounds, Soft. No: Non tender (Generally tender though nonperitoneal abdomen. Unremarkable bowel sounds though it is excessively tympanic) - Back Back: No CVA TTP - Derm Derm: Normal color, Warm and dry - Extremities Extremities: No deformity - Neuro Neuro: Alert and oriented X 3, instructor bridge 2-12 intact Eye Opening: Spontaneous Motor: Obeys Commands Verbal: Oriented GCS Score: 15 Results - Vitals Vitals: Vital Signs - 24 hr 03/28/23 03/28/23 03/28/23 19:24 21:40 22:10 Temperature 37.1 C Heart Rate 84 Respiratory 17 18 Rate Blood Pressure 131/81 H 120/76 113/76 O2 Saturation 100 100 99 03/28/23 22:41 Temperature Heart Rate 79 Respiratory 18 Rate Blood Pressure 113/76 O2 Saturation 100 Oxygen O2 Source Room air - Labs Labs: Laboratory Tests 03/28/23 03/28/23 03/28/23 20:30 20:30 20:30 WBC 8.1 RBC 4.04 L Hgb 12.4 Hct 36.8 L MCV 91.1 MCH 30.7 MCHC 33.7 RDW 12.7 Plt Count 322 MPV 9.5 Neut # (Auto) 4.9 Lymph # (Auto) 2.8 Stevens # (Auto) 0.3 Eos # (Auto) 0.1 Baso # (Auto) 0.0 Absolute Nucleated RBC 0.00 Nucleated RBC % 0.0 Sodium 136 Potassium 3.5 Chloride 108 Carbon Dioxide 24 Anion Gap 4.0 L BUN 10 Creatinine 0.7 Estimated GFR (MDRD) 100 Glucose 96 Calcium 9.0 Total Bilirubin 0.2 AST 9 L ALT 6 L Alkaline Phosphatase 79 Total Protein 6.8 Albumin 3.5 Globulin 3.3 Albumin/Globulin Ratio 1.1 Lipase 20 Urine Color YELLOW Urine Clarity HAZY Urine pH 7.5 Ur Specific [place] 1.020 Urine Protein NEGATIVE Urine Glucose (UA) NEGATIVE Urine Ketones NEGATIVE Urine Occult Blood NEGATIVE Urine Nitrite NEGATIVE Urine Bilirubin NEGATIVE Urine Urobilinogen 0.2 (NORMAL) Ur Leukocyte Esterase NEGATIVE Urine RBC 0-5 Urine WBC 0-3 Ur Squamous Epith Cells MOD Squamous H Urine Bacteria Rare Ur Microscopic Review INDICATED Urine Culture Comments NOT INDICATED Urine HCG, Qual NEGATIVE Stl C. diff Tox B Gene 03/28/23 20:30 WBC RBC Hgb Hct MCV MCH MCHC RDW Plt Count MPV Neut # (Auto) Lymph # (Auto) Stevens # (Auto) Eos # (Auto) Baso # (Auto) Absolute Nucleated RBC Nucleated RBC % Sodium Potassium Chloride Carbon Dioxide Anion Gap BUN Creatinine Estimated GFR (MDRD) Glucose Calcium Total Bilirubin AST ALT Alkaline Phosphatase Total Protein Albumin Globulin Albumin/Globulin Ratio Lipase Urine Color Urine Clarity Urine pH Ur Specific [place] Urine Protein Urine Glucose (UA) Urine Ketones Urine Occult Blood Urine Nitrite Urine Bilirubin Urine Urobilinogen Ur Leukocyte Esterase Urine RBC Urine WBC Ur Squamous Epith Cells Urine Bacteria Ur Microscopic Review Urine Culture Comments Urine HCG, Qual Stl C. diff Tox B Gene POSITIVE A* PD Medical Decision Making - ED course Complexity details: reviewed results, re-evaluated patient, d/w patient ED course: 27-year-old female presents emergency department for evaluation of bloody mucoid stools, abdominal pain and bloating. She does have a longstanding history of diarrhea. She was diagnosed as C. difficile positive in early February through her gastroenterology office. " She was subsequently seen here in this emergency department and received a 2-week course of oral vancomycin. Despite completing that treatment at least 2 weeks ago she continues to have generalized abdominal discomfort, bloating and several loose mucoid, jellylike and occasionally red stools throughout the day. Here in the emergency department she appears alert though anxious. Her vital signs are essentially normal for age. No fever, tachycardia or hypotension. Her abdominal exam revealed some generalized tenderness though nonperitoneal. I did obtain CBC, electrolytes and urinalysis. Per my interpretation no acute worrisome abnormalities including leukocytosis, anemia or significant electrolyte derangement or findings of urinary tract infection. PT will be signed out to my nighttime colleague to follow up on the CT results. If no acute worrisome abnormalities, okay for dc fhome. Rx for Bentyl has been sent to the pharmacy to help with discomfort and bloating. Given the duration of her abdominal discomfort which is subacute to chronic, I do not feel that narcotics would be appropriate at this juncture Patient is going to be signed out to my nighttime colleague Dr. Wilkes to follow-up on the CT results. If her C. difficile remains positive, She could be treated again with vancomycin 125 mg every 4 hours for 10 days. Assuming no worrisome abnormalities on the CT she is stable for discharge home to follow-up with GI as already scheduled on 06 April. Departure - Departure Record reviewed to determine appropriate education?: Yes
[2023-03-28] MEDS ORDERED: diphenhydrAMINE INJ 50 MG/ML VIAL IVP STA (20:33)
[2023-03-28 20:39] LABS: BASOPHILS % (AUTO) 0.2 %; EOSINOPHILS # (AUTO) 0.1 10^3/uL (0.0-0.7); EOSINOPHILS % (AUTO) 1.1 %; HCT - HEMATOCRIT 36.8 % (37.0-47.0); HGB - HEMOGLOBIN 12.4 g/dL (12.0-16.0); LYMPHOCYTES # (AUTO) 2.8 10^3/uL (1.5-3.5); LYMPHOCYTES % (AUTO) 34.2 %; MEAN CORPUSCULAR HEMOGLOBIN 30.7 pg (27.0-31.0); MEAN CORPUSCULAR HGB CONC 33.7 g/dL (32.0-36.0); MEAN CORPUSCULAR VOLUME 91.1 fL (81.0-99.0); MEAN PLATELET VOLUME 9.5 fL (7.9-10.8); MONOCYTES # (AUTO) 0.3 10^3/uL (0.0-1.0); NEUTROPHILS # (AUTO) 4.9 10^3/uL (1.5-6.6); NEUTROPHILS % (AUTO) 60.3 %; PLT - PLATELET COUNT 322 10^3/uL (130-450); RED BLOOD COUNT 4.04 10^6/uL (4.20-5.40); RED CELL DISTRIBUTION WIDTH 12.7 % (12.0-15.0); WHITE BLOOD COUNT 8.1 x10^3/uL (4.8-10.8)
[2023-03-28 20:48] LABS: BILIRUBIN,URINE NEGATIVE (NEGATIVE); GLUCOSE, URINE (UA) NEGATIVE (NEGATIVE); KETONES,URINE (UA) NEGATIVE (NEGATIVE); LEUKOCYTE ESTERASE, URINE NEGATIVE (NEGATIVE); NITRITE,URINE NEGATIVE (NEGATIVE); OCCULT BLOOD,URINE NEGATIVE (NEGATIVE); PH,URINE 7.5 PH (5.0-7.5); PROTEIN,URINE NEGATIVE (NEGATIVE); UROBILINOGEN,URINE 0.2 (NORMAL) E.U./dL (NORMAL)
[2023-03-28 20:50] LABS: CLARITY,URINE HAZY (CLEAR); HCG UR QUAL NEGATIVE
[2023-03-28 20:54] LABS: BACTERIA,URINE Rare /HPF (None Seen); RBC,URINE 0-5 /HPF (0-5); SQUAMOUS EPITHELIAL CELL,UR MOD Squamous (<= Few); WBC,URINE 0-3 /HPF (0-5)
[2023-03-28 20:55] LABS: ALBUMIN 3.5 g/dL (3.2-5.5); ALBUMIN/GLOBULIN RATIO 1.1 (1.0-2.2); BILIRUBIN,TOTAL 0.2 mg/dL (0.2-1.0); CREATININE 0.7 mg/dL (0.6-1.3); POTASSIUM 3.5 mmol/L (3.5-4.5); TOTAL PROTEIN 6.8 g/dL (6.4-8.9)
[2023-03-28] MEDS ORDERED: iohexoL-300 100 ML VIAL IVP ONE (21:33)
[2023-03-28 22:19] VITALS: BP 113/76
--- NOTE | 2023-03-28 22:46 | CT Report ---
PROCEDURE: ABDOMEN/PELVIS W INDICATIONS: recent cdif. abd pain, bloating abd bloody stools CONTRAST: Omni 300 100ml TECHNIQUE: After the administration of intravenous contrast, 5 mm thick sections acquired from the diaphragms to the symphysis. 5 mm thick coronal and sagittal reformats were acquired. For radiation dose reducti on, the following was used: automated exposure control, adjustment of mA and/or kV according to caitlin ent size. COMPARISON: CT abdomen and pelvis 01/09/2023, 11/08/2022, 12/15/2021 FINDINGS: Image quality: Excellent. Lung bases:There is minimal right basilar atelectasis. Heart: Heart is normal in size. ABDOMEN: Liver:A hypoattenuating lesion in the right hepatic lobe with indistinct margins and eccentric perip heral enhancement redemonstrated likely representing a hemangioma. Gallbladder:Surgically absent. Biliary ducts: No biliary ductal dilatation. Pancreas: Unremarkable. Spleen: Normal in size. Adrenal Glands: No adrenal nodules. Kidneys and Ureters: No hydronephrosis. Stomach and Bowel: Stomach and small bowel loops are normal in caliber and wall thickness. There are surgical sutures along the cecum likely related to prior appendectomy. There is mild segmental bowel wall thickening in the sigmoid colon with evaluation limited due to nondistention. Peritoneum: No abnormal intraperitoneal fluid. No free air. Ventral Wall: No hernia. Abdominal Nodes: No retroperitoneal or mesenteric adenopathy by size criteria. Vessels: Aorta and inferior vena cava are normal in size. PELVIS: Pelvic Organs: Unremarkable. Bladder: Unremarkable. Pelvic Nodes: No enlarged lymph nodes. Miscellaneous: No inguinal hernias. Bones: Visualized osseous structures demonstrate no suspicious lesions. IMPRESSION: 1. Mild segmental wall thickening in the sigmoid colon is suggestive of artifact due to nondistention versus a mild colitis. 2. Probable hemangioma redemonstrated within the right hepatic lobe. Reviewed by: Alex Forrest MD on 03/28/2023 10:45 PM PDT Approved by: Alex Forrest MD on 03/28/2023 10:45 PM PDT Station ID: [id number]
[2023-03-28] MEDS ORDERED: VANCOMYCIN 125 MG CAPSULE PO SCH (23:00)
== END 2023-03-28 22:41 | disposition home or self-care (01) ==
LOC: ED 19:15
DX: R10.84 Generalized abdominal pain (principal); Z79.899 Other long term (current) drug therapy
CPT/HCPCS: 36415; 74177; 80053; 81001; 81025; 83690; 85025; 87493; 96374; 99284; J1200; J8499; Q9967; 81003; 87086

== ENCOUNTER 2023-04-14 20:37 | Emergency (ER) | payer OTHER ==
[2023-04-14] MEDS ORDERED: CYCLOBENZAPRINE 10 MG TABLET PO STA (21:43)
--- NOTE | 2023-04-14 21:45 | ED Physician Documentation ---
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 she states she has had issues with the area in the past and seen pt/ot but is not currently seeing anyone. patient has not taken anything for this yet. endorses subjective fevers intermittently for days to weeks as well as chronic abdominal cramping and diarrhea. currently on PO vanco for c dif. denies soa, nausea. 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, Other : Chronic bladder infection HEENT: None Psych: Depression, Anxiety, Panic attacks, Claustrophobia Musculoskeletal: Fibromyalgia, Other Derm: None - Past Surgical History Past Surgical History: Yes General: Appendectomy, Colonoscopy, EGD Ortho: Arthroscopic surgery HEENT: Other - Present Medications Home Medications: Ambulatory Orders Medication Instructions Recorded Confirmed DULoxetine [Cymbalta] 30 mg PO DAILY 11/03/21 11/03/21 Ketorolac [Toradol] 10 mg PO Q6H PRN #30 tablet 11/03/21 Omeprazole 40 mg PO DAILY 11/03/21 11/03/21 LORazepam [Ativan] 1 mg PO TID PRN #6 tablet 12/15/21 Metoclopramide [Reglan] 10 mg PO Q6H PRN #10 tablet 12/15/21 Oxycodone HCl/Acetaminophen 1 each PO Q6H PRN #8 tablet 12/24/21 [Percocet 5-325 mg Tablet] Phenazopyridine HCl [Pyridium] 200 mg PO TID PRN #6 tablet 12/24/21 Oxycodone HCl/Acetaminophen 1 each PO Q6H PRN #12 tablet 01/27/22 [Percocet 5-325 mg Tablet] Acetaminophen [Acetaminophen Extra 500 mg PO QID PRN #50 tablet 02/13/22 Strength] Labetalol [Trandate] 100 mg PO DAILY #20 tablet 02/13/22 oxyCODONE [Roxicodone] 5 mg PO TID PRN #15 tablet 02/13/22 Dicyclomine [Bentyl] 1 - 2 tab PO QID PRN #20 cap 03/18/22 Naproxen 500 mg PO BID PRN #15 tablet 03/18/22 Ondansetron Odt [Zofran] 4 mg TL Q6H PRN #10 tablet 03/18/22 Metoclopramide [Reglan] 10 mg PO Q6H PRN #20 tablet 04/05/22 methocarbamoL [Robaxin] 500 mg PO Q6H PRN #20 tablet 11/08/22 Vancomycin [Vancocin] 1 tab PO QID #56 cap 02/28/23 oxyCODONE [Roxicodone] 5 mg PO Q4-6H PRN #7 tablet 02/28/23 Simethicone [Gas Relief] 80 mg PO QDAC PRN #10 ea 03/03/23 Dicyclomine [Bentyl] 10 mg PO QID PRN #30 cap 03/28/23 Vancomycin [Vancocin] 125 mg PO QID 10 Days #40 cap 03/28/23 Cyclobenzaprine [Flexeril] 10 mg PO TID PRN 6 Days #20 tablet 04/14/23 - Allergies Allergies/Adverse Reactions: Allergies Allergy/AdvReac Type Severity Reaction Status Date / Time amoxicillin Allergy Unknown Verified 04/14/23 20:41 doxycycline Allergy Unknown Verified 04/14/23 20:41 Iodinated Contrast Media Allergy Hives Verified 04/14/23 20:41 lidocaine Allergy Edema Verified 04/14/23 20:41 Penicillins Allergy Rash Verified 04/14/23 20:41 - Social History Does the pt smoke?: No Smoking Status: Never smoker Does the pt drink ETOH?: Yes Does the pt have substance abuse?: No - Immunizations Immunizations are current?: Yes - POLST Patient has POLST: No PD ED PE NORMAL - Vitals Vital signs reviewed: Yes - General General: Alert and oriented X 3, No acute distress, Well developed/nourished - HEENT HEENT: Atraumatic, PERRL, EOMI - Neck Neck: Supple, no meningeal sign, Other (R shoulder tender in trapezius muscle distribution) Results - Vitals Vitals: Vital Signs - 24 hr 04/14/23 20:41 Temperature 36.5 C Heart Rate 100 Respiratory 16 Rate Blood Pressure 140/88 H O2 Saturation 98 Oxygen O2 Source Room air PD Medical Decision Making - ED course ED course: 27yF with history of chronic pain presents to the ED with R shoulder pain radiating to the neck X 4 hours. low concern for aortic dissection given patient is well appearing with benign exam. She expressed concerns about chest pain at triage but when asked where she is having pain she refers specifically to the R shoulder and neck. The muscle is knotted consistent with muscle spasm therefore a trial of flexeril was provided. plan to f/u with pcp. return precautions given. Departure - Departure Disposition: Home, Self Care Clinical Impression: Neck pain Condition: Stable Instructions: ED Neck Pain No Trauma Prescriptions: Cyclobenzaprine [Flexeril] 10 mg PO TID PRN 6 Days #20 tablet PRN Reason: Spasms Comments: You were seen in the ED for neck pain moving to the right shoulder. A scription for flexeril was sent electronically to [facility] [place]. Please follow up with your primary care provider and return to the ED for new or worsening symptoms or other concerns. Forms: PCP List
[2023-04-14 22:20] VITALS: BP 126/88; O2SAT 99
== END 2023-04-14 22:20 | disposition home or self-care (01) ==
LOC: ED 20:37
DX: M54.2 Cervicalgia (principal); Z79.899 Other long term (current) drug therapy
CPT/HCPCS: 99282; 99283; A9270

== ENCOUNTER 2023-04-21 21:05 | Emergency (ER) | payer OTHER ==
[2023-04-21 21:29] VITALS: BP 132/98; O2SAT 98
[2023-04-21 21:45] LABS: BILIRUBIN,URINE NEGATIVE (NEGATIVE); GLUCOSE, URINE (UA) NEGATIVE (NEGATIVE); KETONES,URINE (UA) NEGATIVE (NEGATIVE); LEUKOCYTE ESTERASE, URINE NEGATIVE (NEGATIVE); NITRITE,URINE NEGATIVE (NEGATIVE); OCCULT BLOOD,URINE NEGATIVE (NEGATIVE); PROTEIN,URINE NEGATIVE (NEGATIVE); UROBILINOGEN,URINE 0.2 (NORMAL) E.U./dL (NORMAL)
[2023-04-21 21:47] LABS: CLARITY,URINE CLEAR (CLEAR)
[2023-04-21 21:48] LABS: HCG UR QUAL NEGATIVE
[2023-04-21] MEDS ORDERED: LORazepam 0.5 MG TABLET PO STA (21:51)
--- NOTE | 2023-04-21 21:53 | ED Physician Documentation ---
"History of Present Illness - Stated complaint Stated Complaint: ABD/BACK PX - Chief complaint Chief Complaint: Abd Pain - History obtained from History obtained from: Patient - Additonal information Additional information: 28yF with chronic pain and multiple recent ED visits (see lakisha) p/w BL low back pain ongoing for a couple weeks, worse today. denies urinary sx. patient has c dif and is almost done with her vanc rx. 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, Other : Chronic bladder infection HEENT: None Psych: Depression, Anxiety, Panic attacks, Claustrophobia Musculoskeletal: Fibromyalgia, Other Derm: None - Past Surgical History Past Surgical History: Yes General: Appendectomy, Colonoscopy, EGD Ortho: Arthroscopic surgery HEENT: Other - Present Medications Home Medications: Ambulatory Orders Medication Instructions Recorded Confirmed DULoxetine [Cymbalta] 30 mg PO DAILY 11/03/21 11/03/21 Ketorolac [Toradol] 10 mg PO Q6H PRN #30 tablet 11/03/21 Omeprazole 40 mg PO DAILY 11/03/21 11/03/21 LORazepam [Ativan] 1 mg PO TID PRN #6 tablet 12/15/21 Metoclopramide [Reglan] 10 mg PO Q6H PRN #10 tablet 12/15/21 Oxycodone HCl/Acetaminophen 1 each PO Q6H PRN #8 tablet 12/24/21 [Percocet 5-325 mg Tablet] Phenazopyridine HCl [Pyridium] 200 mg PO TID PRN #6 tablet 12/24/21 Oxycodone HCl/Acetaminophen 1 each PO Q6H PRN #12 tablet 01/27/22 [Percocet 5-325 mg Tablet] Acetaminophen [Acetaminophen Extra 500 mg PO QID PRN #50 tablet 02/13/22 Strength] Labetalol [Trandate] 100 mg PO DAILY #20 tablet 02/13/22 oxyCODONE [Roxicodone] 5 mg PO TID PRN #15 tablet 02/13/22 Dicyclomine [Bentyl] 1 - 2 tab PO QID PRN #20 cap 03/18/22 Naproxen 500 mg PO BID PRN #15 tablet 03/18/22 Ondansetron Odt [Zofran] 4 mg TL Q6H PRN #10 tablet 03/18/22 Metoclopramide [Reglan] 10 mg PO Q6H PRN #20 tablet 04/05/22 methocarbamoL [Robaxin] 500 mg PO Q6H PRN #20 tablet 11/08/22 Vancomycin [Vancocin] 1 tab PO QID #56 cap 02/28/23 oxyCODONE [Roxicodone] 5 mg PO Q4-6H PRN #7 tablet 02/28/23 Simethicone [Gas Relief] 80 mg PO QDAC PRN #10 ea 03/03/23 Dicyclomine [Bentyl] 10 mg PO QID PRN #30 cap 03/28/23 Vancomycin [Vancocin] 125 mg PO QID 10 Days #40 cap 03/28/23 Cyclobenzaprine [Flexeril] 10 mg PO TID PRN 6 Days #20 tablet 04/14/23 - Allergies Allergies/Adverse Reactions: Allergies Allergy/AdvReac Type Severity Reaction Status Date / Time amoxicillin Allergy Unknown Verified 04/21/23 21:23 doxycycline Allergy Unknown Verified 04/21/23 21:23 Iodinated Contrast Media Allergy Hives Verified 04/21/23 21:23 lidocaine Allergy Edema Verified 04/21/23 21:23 Penicillins Allergy Rash Verified 04/21/23 21:23 - Social History Does the pt smoke?: No Smoking Status: Never smoker Does the pt drink ETOH?: Yes Does the pt have substance abuse?: No - Immunizations Immunizations are current?: Yes - POLST Patient has POLST: No PD ED PE NORMAL - Vitals Vital signs reviewed: Yes - General General: Alert and oriented X 3, No acute distress, Well developed/nourished, Other (tearful appearing) - HEENT HEENT: Atraumatic, PERRL, EOMI, Moist mucous membranes, Pharynx benign - Neck Neck: Supple, no meningeal sign - Cardiac Cardiac: RRR - Respiratory Respiratory: No respiratory distress, Clear bilaterally - Abdomen Abdomen: Non tender, Non distended - Back Back: No CVA TTP - Derm Derm: Normal color, Warm and dry - Psych Psych: Other (depressed mood and affect) Results - Vitals Vitals: Vital Signs - 24 hr 04/21/23 21:15 Temperature 36.7 C Heart Rate 56 L Respiratory 18 Rate Blood Pressure 132/98 H O2 Saturation 98 Oxygen O2 Source Room air - Labs Labs: Laboratory Tests 04/21/23 04/21/23 21:40 21:40 Urine Color YELLOW Urine Clarity CLEAR Urine pH 6.0 Ur Specific [place] 1.010 Urine Protein NEGATIVE Urine Glucose (UA) NEGATIVE Urine Ketones NEGATIVE Urine Occult Blood NEGATIVE Urine Nitrite NEGATIVE Urine Bilirubin NEGATIVE Urine Urobilinogen 0.2 (NORMAL) Ur Leukocyte Esterase NEGATIVE Ur Microscopic Review NOT INDICATED Urine Culture Comments NOT INDICATED Urine HCG, Qual NEGATIVE PD Medical Decision Making - ED course ED course: 28yF p/w acute on chronic low back pain. urinalysis benign. patient just had labwork last week and is having similar presentation today therefore discussed that she should f/u with her pcp as well as seek out alternative management techniques for her chronic pain. patient also states she will f/u with her mental health counselor. return precautions given. Departure - Departure Disposition: 01 Home, Self Care Clinical Impression: Back pain Condition: Stable Instructions: Chronic Pain Cycle, Chronic Pain Therapies Mind Body Comments: You were seen in the emergency department for back pain. Your urine test was normal. Please follow-up with your primary care provider regarding your eligibility for [facility] (see info below). Return to the emergency department if you have any new or worsening symptoms or other concerns. [facility] provides a full range of in-person and virtual, outpatient and community based services including: care coordination for physical health concerns; mental health service; addiction support services; and, social support coordination. Please contact [facility] to refer for scheduling at: [phone] Monday - Monday - 8am to 4:30pm PST | Attributed By: [facility] | Attributed On: 06/01/2022 Alternative therapies for pain can include mind-body care and holistic medicine. We have a lot of great options on [facility]. Here are some websites to get started. Farrah Williamson is an excellent craniosacral therapist that has helped many patients. [facility] [email or web address] Forms: PCP List Discharge Date/Time: 04/21/23 22:48"
== END 2023-04-21 22:48 | disposition home or self-care (01) ==
LOC: ED 21:05
DX: M54.50 Low back pain, unspecified (principal)
CPT/HCPCS: 81003; 81025; 99283; A9270; 80053; 81001; 83690; 85025; 87086

== ENCOUNTER 2023-04-26 12:45 | Outpatient (CLI) | payer OTHER ==
--- NOTE | 2023-04-26 18:03 | XRAY Report ---
PROCEDURE: Hand 3 View RT INDICATIONS: CONTUSION OF RIGHT HAND, INITIAL ENCOUNTER TECHNIQUE: 3 views of the hand(s) acquired. COMPARISON: None. FINDINGS: Bones: No fractures or dislocations. No suspicious bony lesions. Soft tissues: No suspicious soft tissue calcifications or masses. IMPRESSION: No acute bony abnormality. Reviewed by: Luis Eduardo Caceres MD on 04/26/2023 5:01 PM [facility] Approved by: Luis Eduardo Caceres MD on 04/26/2023 5:01 PM AK[facility] Station ID: [id number]
== END 2023-04-26 12:46 | disposition home or self-care (01) ==
LOC: DI 12:45
PROVIDERS: ATTEND Emergency Medicine
DX: S60.221A Contusion of right hand, initial encounter (principal)

== ENCOUNTER 2023-06-10 13:23 | Emergency (ER) | payer OTHER ==
[2023-06-10 13:46] LABS: BASOPHILS % (AUTO) 0.3 %; EOSINOPHILS % (AUTO) 0.3 %; HCT - HEMATOCRIT 38.3 % (37.0-47.0); HGB - HEMOGLOBIN 13.2 g/dL (12.0-16.0); LYMPHOCYTES # (AUTO) 1.7 10^3/uL (1.5-3.5); LYMPHOCYTES % (AUTO) 27.4 %; MEAN CORPUSCULAR HEMOGLOBIN 31.3 pg (27.0-31.0); MEAN CORPUSCULAR HGB CONC 34.5 g/dL (32.0-36.0); MEAN CORPUSCULAR VOLUME 90.8 fL (81.0-99.0); MONOCYTES # (AUTO) 0.3 10^3/uL (0.0-1.0); MONOCYTES % (AUTO) 4.3 %; NEUTROPHILS # (AUTO) 4.3 10^3/uL (1.5-6.6); NEUTROPHILS % (AUTO) 67.4 %; PLT - PLATELET COUNT 308 10^3/uL (130-450); RED BLOOD COUNT 4.22 10^6/uL (4.20-5.40); RED CELL DISTRIBUTION WIDTH 12.1 % (12.0-15.0); WHITE BLOOD COUNT 6.3 x10^3/uL (4.8-10.8)
[2023-06-10] MEDS ORDERED: SODIUM CHLORIDE 0.9% 1,000 ML IV STA (13:52)
[2023-06-10] MEDS ORDERED: PROPRANOLOL 10 MG TABLET PO STA (13:53)
--- NOTE | 2023-06-10 13:57 | ED Physician Documentation ---
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 States for the last 2 days she has had a sensation of her heart beating out of her chest, increased anxiety as well as abdominal pain and cramping. She does have a chronic pain disorder. Patient has also recently completed 2 courses of oral vancomycin for C. difficile colitis. Last course ended in late March. She reports that despite taking the vancomycin she has had persistent diarrhea watery mucoid and jellylike stools. Is scheduled to see GI upcoming. Patient states that for her POTS that she takes propanolol 10 mg 3 times a day. She has had no chest pain or syncope. Does endorse some mild shortness of air. Review of Systems Constitutional: denies: Fever, Chills Throat: reports: Reviewed and negative Cardiac: reports: Reviewed and negative Respiratory: reports: Reviewed and negative GI: reports: Abdominal Pain, Diarrhea. 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, Other : Chronic bladder infection HEENT: None Psych: Depression, Anxiety, Panic attacks, Claustrophobia Musculoskeletal: Fibromyalgia, Other Derm: None - Past Surgical History Past Surgical History: Yes General: Appendectomy, Colonoscopy, EGD Ortho: Arthroscopic surgery HEENT: Other - Present Medications Home Medications: Ambulatory Orders Medication Instructions Recorded Confirmed DULoxetine [Cymbalta] 30 mg PO DAILY 11/03/21 11/03/21 Ketorolac [Toradol] 10 mg PO Q6H PRN #30 tablet 11/03/21 Omeprazole 40 mg PO DAILY 11/03/21 11/03/21 LORazepam [Ativan] 1 mg PO TID PRN #6 tablet 12/15/21 Metoclopramide [Reglan] 10 mg PO Q6H PRN #10 tablet 12/15/21 Oxycodone HCl/Acetaminophen 1 each PO Q6H PRN #8 tablet 12/24/21 [Percocet 5-325 mg Tablet] Phenazopyridine HCl [Pyridium] 200 mg PO TID PRN #6 tablet 12/24/21 Oxycodone HCl/Acetaminophen 1 each PO Q6H PRN #12 tablet 01/27/22 [Percocet 5-325 mg Tablet] Acetaminophen [Acetaminophen Extra 500 mg PO QID PRN #50 tablet 02/13/22 Strength] Labetalol [Trandate] 100 mg PO DAILY #20 tablet 02/13/22 oxyCODONE [Roxicodone] 5 mg PO TID PRN #15 tablet 02/13/22 Dicyclomine [Bentyl] 1 - 2 tab PO QID PRN #20 cap 03/18/22 Naproxen 500 mg PO BID PRN #15 tablet 03/18/22 Ondansetron Odt [Zofran] 4 mg TL Q6H PRN #10 tablet 03/18/22 Metoclopramide [Reglan] 10 mg PO Q6H PRN #20 tablet 04/05/22 methocarbamoL [Robaxin] 500 mg PO Q6H PRN #20 tablet 11/08/22 Vancomycin [Vancocin] 1 tab PO QID #56 cap 02/28/23 oxyCODONE [Roxicodone] 5 mg PO Q4-6H PRN #7 tablet 02/28/23 Simethicone [Gas Relief] 80 mg PO QDAC PRN #10 ea 03/03/23 Dicyclomine [Bentyl] 10 mg PO QID PRN #30 cap 03/28/23 Vancomycin [Vancocin] 125 mg PO QID 10 Days #40 cap 03/28/23 Cyclobenzaprine [Flexeril] 10 mg PO TID PRN 6 Days #20 tablet 04/14/23 oxyCODONE [Roxicodone] 5 mg PO BID #10 tablet 06/10/23 - Allergies Allergies/Adverse Reactions: Allergies Allergy/AdvReac Type Severity Reaction Status Date / Time amoxicillin Allergy Unknown Verified 06/10/23 13:32 doxycycline Allergy Unknown Verified 06/10/23 13:32 Iodinated Contrast Media Allergy Hives Verified 06/10/23 13:32 lidocaine Allergy Edema Verified 06/10/23 13:32 Penicillins Allergy Rash Verified 06/10/23 13:32 - Social History Does the pt smoke?: No Smoking Status: Never smoker Does the pt drink ETOH?: Yes Does the pt have substance abuse?: No - Immunizations Immunizations are current?: Yes - POLST Patient has POLST: No PD ED PE NORMAL - General General: Alert and oriented X 3, No acute distress - HEENT HEENT: Atraumatic - Neck Neck: Supple, no meningeal sign, No adenopathy - Cardiac Cardiac: RRR, No murmur - Respiratory Respiratory: No respiratory distress, Clear bilaterally - Abdomen Abdomen: Normal bowel sounds, Soft. No: Non tender (generalized non focal non peritoneal abdominal tenderness) Results - Vitals Vitals: Vital Signs - 24 hr 06/10/23 06/10/23 06/10/23 13:27 14:04 17:43 Temperature 36.8 C Heart Rate 113 H 78 Heart Rate [ 96 Sitting] Heart Rate [ 95 Standing] Heart Rate [ 95 Supine] Respiratory 16 22 Rate Blood Pressure 127/82 H 106/67 Blood Pressure 121/89 H [Sitting] Blood Pressure 106/84 H [Standing] Blood Pressure 116/80 [Supine] O2 Saturation 99 100 Oxygen O2 Source Room air - EKG (time done) 1326 EKG releavant findings:: EKG personally interpreted by author of this note. Relevant findings are: Rate: Rate (enter#) (94) Rhythm: NSR [place]: Normal Intervals: Normal [place] QRS: Normal Ischemia: Normal ST segments Compare to prior EKG: Unchanged from prior EKG Computer interpretation: Agree with computer - Labs Labs: Laboratory Tests 06/10/23 06/10/23 06/10/23 13:23 13:42 13:42 WBC 6.3 RBC 4.22 Hgb 13.2 Hct 38.3 MCV 90.8 MCH 31.3 H MCHC 34.5 RDW 12.1 Plt Count 308 MPV 9.0 Neut # (Auto) 4.3 Lymph # (Auto) 1.7 [place] # (Auto) 0.3 Eos # (Auto) 0.0 Baso # (Auto) 0.0 Absolute Nucleated RBC 0.00 Nucleated RBC % 0.0 Sodium 137 Potassium 3.7 Chloride 106 Carbon Dioxide 25 Anion Gap 6.0 BUN 13 Creatinine 0.9 Estimated GFR (MDRD) 75 L Glucose 96 Calcium 9.2 Total Bilirubin 0.4 AST 11 ALT 12 Alkaline Phosphatase 106 Total Protein 7.0 Albumin 4.0 Globulin 3.0 Albumin/Globulin Ratio 1.3 Lipase 14 TSH 1.38 Free T4 Direct 0.74 Serum HCG, Qual NEGATIVE Stl C. diff Tox B Gene 06/10/23 14:38 WBC RBC Hgb Hct MCV MCH MCHC RDW Plt Count MPV Neut # (Auto) Lymph # (Auto) [place] # (Auto) Eos # (Auto) Baso # (Auto) Absolute Nucleated RBC Nucleated RBC % Sodium Potassium Chloride Carbon Dioxide Anion Gap BUN Creatinine Estimated GFR (MDRD) Glucose Calcium Total Bilirubin AST ALT Alkaline Phosphatase Total Protein Albumin Globulin Albumin/Globulin Ratio Lipase TSH Free T4 Direct Serum HCG, Qual Stl C. diff Tox B Gene NEGATIVE PD Medical Decision Making - ED course Complexity details: reviewed results, re-evaluated patient, d/w patient ED course: 28-year-old female presents emergency department for evaluation of sensation that her heart is racing and beating out of her chest. Reports her doctors are working up a diagnosis of suspected POTS. She has referral for tilt table testing upcoming. Also reporting chronic and unchanged diarrhea after recently completing 2 courses of oral vancomycin for C. difficile diarrhea. Also stating that she is having persistent and unchanged abdominal pain. She does have referral to a new painter mirror upcoming. On presentation in the emergency department she is alert. No fevers tachycardia or hypotension. Her initial heart rate on presentation was 113 in triage but at rest was noted to be 97. We did check her orthostatics which were negative today. I did give her 20 mg of propanolol orally which seemed to improve the sensation of tachycardia and a racing heart. Did obtain CBC, electrolytes and a C. difficile of her stool. CBC without leukocytosis or anemia. Her electrolytes without acute worrisome abnormalities. C. difficile today was negative. While here in the emergency department patient is tolerating orals very well without nausea or vomiting. I did administer the patient 5 mg of oxycodone. She is requesting a prescription for pain control over the weekend and I will send 10 tablets to the [facility] in [place]. I reiterated to the patient the importance of following up with the referrals to GI as well as a painter mirror. However clinically today there is no acute abnormalities that would indicate further testing or treatment in the emergency department. Her abdominal exam was benign with no focal tenderness elicited on my part. The usual emergent return precautions were discussed for worsening symptoms. I am prescribing a short course of short-acting opioid pain medication for this patient. I have reviewed the patients ORNAMENTER HAND and no concerning findings were noted. I have discussed that the opioids are for short term therapy only, and will not be refilled from the ED. Departure - Departure Disposition: Home, Self Care Clinical Impression: Tachycardia Abdominal pain Qualifiers: Abdominal location: generalized Qualified Code(s): R10.84 - Generalized abdomi nal pain Condition: Stable Record reviewed to determine appropriate education?: Yes Prescriptions: oxyCODONE [Roxicodone] 5 mg PO BID #10 tablet Comments: Chelsea your labs today in the emergency department were all essentially normal. Your C. difficile testing today is negative. It is critical that you continue to follow closely with referral to your painter mirror as well as gastroenterology. I am writing a prescription for 10 oxycodone tablets. We are unable to refill these in the future through the emergency department. I recommend that you continue with your usual medications. With regards to your POTS syndrome your vital signs today showed normal orthostatic changes but it is important that you continue to follow through with the tilt table test. You can continue to use your propanolol 3 times daily as needed for sensation of a racing heart. Return to the ER for any fevers, bloody diarrhea, fainting episodes or severe shortness of air. Forms: PCP List
--- NOTE | 2023-06-10 13:57 | XRAY Report ---
PROCEDURE: Chest 1 View X-Ray INDICATIONS: Chest Pain TECHNIQUE: One view of the chest was acquired. COMPARISON: 02/12/2022 FINDINGS: Surgical changes and devices: None. Lungs and pleura: An incomplete inspiratory result is noted, with low lung volumes and crowding of t he vascular markings. No focal infiltrates are seen. No large pneumothorax or large pleural effusion can be seen. Mediastinum: Mediastinal contours appear normal. Heart size is normal. Bones and chest wall: No suspicious bony lesions. Overlying soft tissues appear unremarkable. IMPRESSION: Low lung volumes, without an acute abnormality seen. Reviewed by: Gera Navarro MD on 06/10/2023 12:55 PM BARBARA Approved by: Gera Navarro MD on 06/10/2023 12:55 PM BARBARA Station ID: [email or web address]
[2023-06-10 14:12] LABS: ALBUMIN/GLOBULIN RATIO 1.3 (1.0-2.2); BILIRUBIN,TOTAL 0.4 mg/dL (0.2-1.0); CALCIUM 9.2 mg/dL (8.5-10.3); CREATININE 0.9 mg/dL (0.6-1.3); POTASSIUM 3.7 mmol/L (3.5-4.5)
[2023-06-10 14:26] LABS: THYROID STIMULATING HORMONE 1.38 uIU/mL (0.34-5.60)
[2023-06-10 15:03] LABS: HCG,QUALITATIVE BLOOD NEGATIVE
[2023-06-10 17:43] VITALS: BP 106/67; O2SAT 100
[2023-06-10] MEDS ORDERED: HYDROmorphone 1 MG/ML CARPUJECT IVP STA (17:47)
[2023-06-10] MEDS ORDERED: oxyCODONE 5 MG TABLET PO STA (17:49)
== END 2023-06-10 18:30 | disposition home or self-care (01) ==
LOC: ED 13:23
DX: R00.0 Tachycardia, unspecified (principal); R10.84 Generalized abdominal pain
CPT/HCPCS: 36415; 71045; 80053; 83690; 84439; 84443; 84703; 85025; 87493; 93005; 99284; A9270

== ENCOUNTER 2023-07-01 10:31 | Emergency (ER) | payer OTHER ==
--- NOTE | 2023-07-01 11:24 | ED Physician Documentation ---
PD HPI HEENT - Stated complaint Stated Complaint: LT JAW PX - Chief complaint Chief Complaint: Heent - History obtained from History obtained from: Patient - History of Present Illness Timing - onset: Today Timing - duration: Days (1) Timing - details: Abrupt onset, Still present Location: Other (left TMJ area, pain with ROM and opening mouth. Denies dental pains nor swelling. Does grind teeth when sleeping. No bite blocks. No injury otherwise. Does not chew gum/etc.) Worsens: Other (opening of mouth.) Associated symptoms: Trismus. 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, Other : Chronic bladder infection HEENT: None Psych: Depression, Anxiety, Panic attacks, Claustrophobia Musculoskeletal: Fibromyalgia, Other Derm: None - Past Surgical History Past Surgical History: Yes General: Appendectomy, Colonoscopy, EGD Ortho: Arthroscopic surgery HEENT: Other - Present Medications Home Medications: Ambulatory Orders Medication Instructions Recorded Confirmed DULoxetine [Cymbalta] 30 mg PO DAILY 11/03/21 11/03/21 Ketorolac [Toradol] 10 mg PO Q6H PRN #30 tablet 11/03/21 Omeprazole 40 mg PO DAILY 11/03/21 11/03/21 LORazepam [Ativan] 1 mg PO TID PRN #6 tablet 12/15/21 Metoclopramide [Reglan] 10 mg PO Q6H PRN #10 tablet 12/15/21 Oxycodone HCl/Acetaminophen 1 each PO Q6H PRN #8 tablet 12/24/21 [Percocet 5-325 mg Tablet] Phenazopyridine HCl [Pyridium] 200 mg PO TID PRN #6 tablet 12/24/21 Oxycodone HCl/Acetaminophen 1 each PO Q6H PRN #12 tablet 01/27/22 [Percocet 5-325 mg Tablet] Acetaminophen [Acetaminophen Extra 500 mg PO QID PRN #50 tablet 02/13/22 Strength] Labetalol [Trandate] 100 mg PO DAILY #20 tablet 02/13/22 oxyCODONE [Roxicodone] 5 mg PO TID PRN #15 tablet 02/13/22 Dicyclomine [Bentyl] 1 - 2 tab PO QID PRN #20 cap 03/18/22 Naproxen 500 mg PO BID PRN #15 tablet 03/18/22 Ondansetron Odt [Zofran] 4 mg TL Q6H PRN #10 tablet 03/18/22 Metoclopramide [Reglan] 10 mg PO Q6H PRN #20 tablet 04/05/22 methocarbamoL [Robaxin] 500 mg PO Q6H PRN #20 tablet 11/08/22 Vancomycin [Vancocin] 1 tab PO QID #56 cap 02/28/23 oxyCODONE [Roxicodone] 5 mg PO Q4-6H PRN #7 tablet 02/28/23 Simethicone [Gas Relief] 80 mg PO QDAC PRN #10 ea 03/03/23 Dicyclomine [Bentyl] 10 mg PO QID PRN #30 cap 03/28/23 Vancomycin [Vancocin] 125 mg PO QID 10 Days #40 cap 03/28/23 Cyclobenzaprine [Flexeril] 10 mg PO TID PRN 6 Days #20 tablet 04/14/23 oxyCODONE [Roxicodone] 5 mg PO BID #10 tablet 06/10/23 HYDROcod/ACETAM 5/325 [[place] 5/325] 1 ea PO Q6H PRN #15 tablet 07/01/23 Meloxicam [Mobic] 7.5 mg PO BID 10 Days #20 tablet 07/01/23 - Allergies Allergies/Adverse Reactions: Allergies Allergy/AdvReac Type Severity Reaction Status Date / Time amoxicillin Allergy Unknown Verified 07/01/23 10:46 doxycycline Allergy Unknown Verified 07/01/23 10:46 Iodinated Contrast Media Allergy Hives Verified 07/01/23 10:46 lidocaine Allergy Edema Verified 07/01/23 10:46 Penicillins Allergy Rash Verified 07/01/23 10:46 - Social History Does the pt smoke?: No Smoking Status: Never smoker Does the pt drink ETOH?: Yes Does the pt have substance abuse?: No - Immunizations Immunizations are current?: Yes - POLST Patient has POLST: No PD ED PE NORMAL - Vitals Vital signs reviewed: Yes - General General: Alert and oriented X 3, Well developed/nourished - HEENT HEENT: Ears normal, Moist mucous membranes, Pharynx benign, Dentition benign, Other (not opening mouth much due to pain. Tender at left TMJ without swelling. Not dislocated. ) Results - Vitals Vitals: Vital Signs - 24 hr 07/01/23 13:00 Heart Rate 98 Respiratory 15 Rate Blood Pressure 132/78 H O2 Saturation 100 Oxygen O2 Source Room air PD Medical Decision Making - ED course Complexity details: considered differential (seems like TMJ pain. No dental cause noted. No rash nor sores. Pain local and not lanciating, so not seems trigeminal nerve. ), d/w patient Departure - Departure Disposition: 01 Home, Self Care Clinical Impression: Sprain of jaw, left side, initial encounter, TMJ arthralgia Condition: Stable Record reviewed to determine appropriate education?: Yes Instructions: ED TMJ Syndrome Prescriptions: Meloxicam [Mobic] 7.5 mg PO BID 10 Days #20 tablet HYDROcod/ACETAM 5/325 [[place] 5/325] 1 ea PO Q6H PRN #15 tablet PRN Reason: Pain Comments: This sounds likely to be inflammation of the TMJ joint. No other obvious cause for the pain there at the moment. Other considerations can be inflammation of the nerve in the area. However this seems to be more painful with opening and closing her mouth. At this point would consider TMJ inflammation. I would suggest anti- inflammatories. I wrote a prescription for 1 twice daily for the next 7 to 10 days. Add Tylenol 500 to 650 mg every 4-6 hours if needed for pain. Add hydrocodone if needed sparingly for worse pain. This would be intended short-term. I would also suggest getting a bite block that you wear between your upper and lower teeth when sleeping in order to minimize the pressure into the joint. These may be had a available at this sports shop but are available online of course in the commonly are also referred to for snoring to hold the teeth in position. The purpose of this would be to have less grinding of the teeth but also to create a spacing between the teeth that will reduce some of the pressure up into the TMJ joint. Wear those nightly for the next few weeks and see overall if they help. Typically they well. In the short-term obviously no firm chewing and avoid stress on the joint. No gum chewing or such as well. I sent your prescriptions to your preferred pharmacy. Recheck if not improving well over the next week or so but there should be a good improvement over even a few days. I am prescribing a short course of narcotic pain medication for you. These are potentially dangerous and addictive medications that should be used carefully. These medications may constipate you. Take an [id number] stool softener such as docusate twice daily with plenty of water while taking these medications. If you go 24 hours without a bowel movement, take [id number] MiraLAX, per package instructions. Do not drink or drive while taking these medications. If you received narcotic or sedating medications while in the emergency department do not drive for 24 hours. Store this medication in a safe, secure place and out of reach of children. It is a violation of federal law to give or sell this medication to another person or to use in a manner other than prescribed. The ED will not refill narcotic prescriptions, including prescriptions lost or stolen. You can dispose of unwanted medications at the [facility]'s office or at several pharmacies such as [facility]. Forms: PCP List Discharge Date/Time: 07/01/23 13:11
[2023-07-01] MEDS ORDERED: HYDROmorphone 1 MG/ML CARPUJECT IM STA (11:54)
[2023-07-01] MEDS ORDERED: KETOROLAC 30 MG/ML VIAL IM STA (11:54)
[2023-07-01 13:10] VITALS: BP 132/78; O2SAT 100
== END 2023-07-01 13:11 | disposition home or self-care (01) ==
LOC: ED 10:31
DX: S03.42XA Sprain of jaw, left side, initial encounter (principal); X58.XXXA Exposure to other specified factors, initial encounter; M26.622 Arthralgia of left temporomandibular joint; Z79.899 Other long term (current) drug therapy
CPT/HCPCS: 96372; 99283; J1170

== ENCOUNTER 2023-09-18 13:26 | Emergency (ER) | payer OTHER ==
[2023-09-18] MEDS ORDERED: SODIUM CHLORIDE 0.9% 1,000 ML IV STA (13:59)
[2023-09-18] MEDS ORDERED: DROPERIDOL 5 MG/2 ML VIAL IVP STA (13:59)
[2023-09-18] MEDS ORDERED: KETOROLAC 15 MG/ML VIAL IVP STA (13:59)
--- NOTE | 2023-09-18 14:01 | ED Physician Documentation ---
PD HPI ABD PAIN - Stated complaint Stated Complaint: VOMITING - Chief complaint Chief Complaint: Abd Pain - History obtained from History obtained from: Patient - Additional information Additional information: 28-year-old woman with chronic abdominal pain presents with vomiting and diarrhea starting just prior to arrival. She is concerned that the vomit looks like her diarrhea and so she thinks she is vomiting up poop. No possibility of . Somewhat recent exploratory laparoscopy with biopsies for chronic pain. This is different than her chronic abdominal pain. 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, Other : Chronic bladder infection HEENT: None Psych: Depression, Anxiety, Panic attacks, Claustrophobia Musculoskeletal: Fibromyalgia, Other Derm: None Other Past Medical History: POTS - Past Surgical History Past Surgical History: Yes General: Cholecystectomy, Appendectomy, Colonoscopy, EGD Ortho: Arthroscopic surgery /CLINICAL MASSAGE THERAPIST: Other HEENT: Other - Present Medications Home Medications: Ambulatory Orders Medication Instructions Recorded Confirmed Elagolix Sodium [[place]il[place]] 200 mg PO BID 09/18/23 09/18/23 Loperamide [Imodium] 2 mg PO QID PRN #10 cap 09/18/23 Ondansetron Odt [Zofran] 4 mg TL Q6H PRN #10 tablet 09/18/23 Pregabalin [Lyrica] 75 mg PO BID 09/18/23 09/18/23 Propranolol ER [Inderal LA] 60 mg PO DAILY 09/18/23 09/18/23 Venlafaxine ER [Effexor ER] 225 mg PO DAILY 09/18/23 09/18/23 - Allergies Allergies/Adverse Reactions: Allergies Allergy/AdvReac Type Severity Reaction Status Date / Time amoxicillin Allergy Unknown Verified 09/18/23 13:31 doxycycline Allergy Unknown Verified 09/18/23 13:31 Iodinated Contrast Media Allergy Hives Verified 09/18/23 13:31 lidocaine Allergy Edema Verified 09/18/23 13:31 Penicillins Allergy Rash Verified 09/18/23 13:31 - Social History Does the pt smoke?: No Smoking Status: Never smoker Does the pt drink ETOH?: Yes Does the pt have substance abuse?: Yes Substance Use and Type: Marijuana - Immunizations Immunizations are current?: Yes - POLST Patient has POLST: No PD ED PE NORMAL - Vitals Vital signs reviewed: Yes - General General: Alert and oriented X 3, No acute distress - Abdomen Abdomen: Normal bowel sounds, Soft, Non tender - Neuro Neuro: Alert and oriented X 3 Results - Vitals Vitals: Vital Signs - 24 hr 09/18/23 09/18/23 13:32 15:22 Temperature 36.5 C Heart Rate 79 72 Respiratory 22 14 Rate Blood Pressure 129/81 H 111/76 O2 Saturation 100 98 Oxygen O2 Source Room air - Labs Labs: Laboratory Tests 09/18/23 09/18/23 09/18/23 13:55 13:55 15:13 WBC 7.3 RBC 4.41 Hgb 14.1 Hct 39.8 MCV 90.2 MCH 32.0 H MCHC 35.4 RDW 12.5 Plt Count 349 MPV 9.6 Neut # (Auto) 4.7 Lymph # (Auto) 2.3 [place] # (Auto) 0.3 Eos # (Auto) 0.0 Baso # (Auto) 0.0 Absolute Nucleated RBC 0.00 Nucleated RBC % 0.0 Sodium 136 Potassium 4.2 Chloride 106 Carbon Dioxide 21 Anion Gap 9.0 BUN 10 Creatinine 0.6 Estimated GFR (MDRD) 119 Glucose 104 Calcium 9.3 Total Bilirubin 0.2 AST 11 ALT 9 L Alkaline Phosphatase 95 Total Protein 7.5 Albumin 4.0 Globulin 3.5 Albumin/Globulin Ratio 1.1 Lipase 15 Urine Color YELLOW Urine Clarity CLEAR Urine pH 6.5 Ur Specific [place] 1.010 Urine Protein NEGATIVE Urine Glucose (UA) NEGATIVE Urine Ketones NEGATIVE Urine Occult Blood NEGATIVE Urine Nitrite NEGATIVE Urine Bilirubin NEGATIVE Urine Urobilinogen 0.2 (NORMAL) Ur Leukocyte Esterase NEGATIVE Ur Microscopic Review NOT INDICATED Urine Culture Comments NOT INDICATED Urine HCG, Qual NEGATIVE - Rads (name of study) CT A/P - neg Relevant Findings:: Final report received, EMP independent interpretation of test PD Medical Decision Making - ED course ED course: She presents with what sounds like gastroenteritis. Her main concern is either for sepsis, of which there is no sign off, or the fact that the vomit looks similar to her diarrhea. Workup in the emergency department demonstrated a CBC, CMP, urinalysis, urine test, and CT of the abdomen pelvis which were with normal findings. There is no evidence of obstruction or sepsis. After the administration of ketorolac and droperidol she felt much better and requested a dose of IV Benadryl after CT as she has had hives with CT contrast before. After which she was asymptomatic with a benign belly but feeling very tired which is expected from the medications. P.o. challenge begun. Departure - Departure Disposition: Home, Self Care Clinical Impression: Gastroenteritis Condition: Good Record reviewed to determine appropriate education?: Yes Instructions: ED Gastroenteritis Viral Prescriptions: Loperamide [Imodium] 2 mg PO QID PRN #10 cap PRN Reason: Diarrhea Ondansetron Odt [Zofran] 4 mg TL Q6H PRN #10 tablet PRN Reason: Nausea / Vomiting Comments: Your labs, urinalysis, and CT were all normal, your clinical syndrome is con sistent with gastroenteritis which is a short-lived syndrome marked by cramps, abdominal pain, vomiting and diarrhea. This is sometimes infectious so make sure you and everyone around you is washing hands well and limiting contact is much as possible. Drink plenty of fluids, return if worse or if not better in the next 24 to 36 hours. Forms: PCP List
[2023-09-18 14:13] LABS: BASOPHILS % (AUTO) 0.4 %; EOSINOPHILS % (AUTO) 0.1 %; HCT - HEMATOCRIT 39.8 % (37.0-47.0); HGB - HEMOGLOBIN 14.1 g/dL (12.0-16.0); LYMPHOCYTES # (AUTO) 2.3 10^3/uL (1.5-3.5); LYMPHOCYTES % (AUTO) 30.7 %; MEAN CORPUSCULAR HGB CONC 35.4 g/dL (32.0-36.0); MEAN CORPUSCULAR VOLUME 90.2 fL (81.0-99.0); MEAN PLATELET VOLUME 9.6 fL (7.9-10.8); MONOCYTES # (AUTO) 0.3 10^3/uL (0.0-1.0); MONOCYTES % (AUTO) 4.2 %; NEUTROPHILS # (AUTO) 4.7 10^3/uL (1.5-6.6); NEUTROPHILS % (AUTO) 64.5 %; PLT - PLATELET COUNT 349 10^3/uL (130-450); RED BLOOD COUNT 4.41 10^6/uL (4.20-5.40); RED CELL DISTRIBUTION WIDTH 12.5 % (12.0-15.0); WHITE BLOOD COUNT 7.3 x10^3/uL (4.8-10.8)
[2023-09-18 14:22] LABS: ALBUMIN/GLOBULIN RATIO 1.1 (1.0-2.2); BILIRUBIN,TOTAL 0.2 mg/dL (0.2-1.0); CALCIUM 9.3 mg/dL (8.5-10.3); CREATININE 0.6 mg/dL (0.6-1.3); POTASSIUM 4.2 mmol/L (3.5-4.5); TOTAL PROTEIN 7.5 g/dL (6.4-8.9)
[2023-09-18] MEDS ORDERED: iohexoL-300 100 ML VIAL ONE (14:46)
[2023-09-18] MEDS ORDERED: diphenhydrAMINE INJ 50 MG/ML VIAL IVP STA (15:01)
[2023-09-18 15:22] LABS: BILIRUBIN,URINE NEGATIVE (NEGATIVE); GLUCOSE, URINE (UA) NEGATIVE (NEGATIVE); KETONES,URINE (UA) NEGATIVE (NEGATIVE); LEUKOCYTE ESTERASE, URINE NEGATIVE (NEGATIVE); NITRITE,URINE NEGATIVE (NEGATIVE); OCCULT BLOOD,URINE NEGATIVE (NEGATIVE); PH,URINE 6.5 PH (5.0-7.5); PROTEIN,URINE NEGATIVE (NEGATIVE); UROBILINOGEN,URINE 0.2 (NORMAL) E.U./dL (NORMAL)
[2023-09-18 15:33] LABS: CLARITY,URINE CLEAR (CLEAR); HCG UR QUAL NEGATIVE
[2023-09-18] MEDS ORDERED: iohexoL-300 100 ML VIAL IVP ONE (15:36)
--- NOTE | 2023-09-18 15:39 | CT Report ---
PROCEDURE: Abdomen/Pelvis W INDICATIONS: iv only, abd pain CONTRAST: Omni 300 100ml TECHNIQUE: After the administration of intravenous contrast, a CT scan of the abdomen and pelvis was performed. Images were recorded and evaluated at appropriate window settings. Reformats: coronal and sagittal. F or radiation dose reduction, the following was used: automated exposure control, adjustment of mA and /or kV according to patient size. COMPARISON: 03/28/2023 FINDINGS: Image quality: Diagnostic Lower chest: No basal effusions. No dense consolidations. Normal heart size. Liver: Suspected hemangioma in the right lobe again seen. Gallbladder and biliary system: Gallbladder is absent. Biliary system is nondilated. Pancreas: No solid mass or ductal dilation Spleen: Nonenlarged Adrenals: No discrete nodule Kidneys: No solid mass or hydronephrosis Vessels and lymph nodes: The main portal vein is patent. No pathologic lymphadenopathy by size criter ia. No abdominal aortic aneurysm. Bowel and peritoneum: No evidence of small bowel obstruction. No evidence of pathologic ascites or dr ainable abscess. The appendix is not seen. There are suture lines. Body wall: Unremarkable Pelvis: Reproductive organs appear physiologic on limited CT evaluation. Consider ultrasound if there is concern. Suspected tampon. Bladder is unremarkable. Bones: No acute or suspicious osseous finding. IMPRESSION: No small bowel obstruction. No significant inflammation identified. Other findings as above. Reviewed by: Fei Vásquez MD on 09/18/2023 3:37 PM PST Approved by: Fei Vásquez MD on 09/18/2023 3:37 PM PST Station ID: [id number]
[2023-09-18 16:12] VITALS: BP 112/77; O2SAT 97
== END 2023-09-18 16:05 | disposition home or self-care (01) ==
LOC: ED 13:26
DX: K52.9 Noninfective gastroenteritis and colitis, unspecified (principal)
CPT/HCPCS: 36415; 74177; 80053; 81003; 81025; 83690; 85025; 96361; 96374; 96375; 99284; J1200; Q9967; 81001; 87086

== ENCOUNTER 2023-10-14 17:43 | Emergency (ER) | payer OTHER ==
[2023-10-14 17:59] VITALS: BP 121/84; O2SAT 100
--- NOTE | 2023-10-14 18:26 | ED Physician Documentation ---
History of Present Illness - Stated complaint Stated Complaint: RT HIP PX - Chief complaint Chief Complaint: Ext Problem - History obtained from History obtained from: Patient - Additonal information Additional information: 28-year-old woman with history of chronic pain, Julisa-Danlos syndrome, fibromyalgia, spinal issues presents with atraumatic right hip pain starting today. She thinks she slept on it wrong. There was no recent injury. No fevers or chills. No possibility of . She was in pain management but was released a couple of months ago due to a disagreement it sounds like. 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: Ovarian cysts, Other : Chronic bladder infection HEENT: None Psych: Depression, Anxiety, Panic attacks, Claustrophobia Musculoskeletal: Fibromyalgia, Other Derm: None - Past Surgical History Past Surgical History: Yes General: Cholecystectomy, Appendectomy, Colonoscopy, EGD Ortho: Arthroscopic surgery /SKATE MAKER: Other HEENT: Other - Present Medications Home Medications: Ambulatory Orders Medication Instructions Recorded Confirmed Elagolix Sodium [Orilissa] 200 mg PO BID 09/18/23 10/14/23 Loperamide [Imodium] 2 mg PO QID PRN #10 cap 09/18/23 Ondansetron Odt [Zofran] 4 mg TL Q6H PRN #10 tablet 09/18/23 Pregabalin [Lyrica] 75 mg PO BID 09/18/23 10/14/23 Propranolol ER [Inderal LA] 60 mg PO DAILY 09/18/23 10/14/23 Venlafaxine ER [Effexor ER] 225 mg PO DAILY 09/18/23 10/14/23 Baclofen 5 mg PO DAILY 10/14/23 10/14/23 Meloxicam [Mobic] 7.5 mg PO BID PRN #20 tablet 10/14/23 oxyCODONE [Roxicodone] 5 mg PO Q4-6H PRN #15 tablet 10/14/23 predniSONE [Deltasone] 40 mg PO DAILY 5 Days #10 tablet 10/14/23 - Allergies Allergies/Adverse Reactions: Allergies Allergy/AdvReac Type Severity Reaction Status Date / Time amoxicillin Allergy Unknown Verified 10/14/23 17:52 doxycycline Allergy Unknown Verified 10/14/23 17:52 Iodinated Contrast Media Allergy Hives Verified 10/14/23 17:52 lidocaine Allergy Edema Verified 10/14/23 17:52 Penicillins Allergy Rash Verified 10/14/23 17:52 - Social History Does the pt smoke?: No Smoking Status: Never smoker Does the pt drink ETOH?: Yes Does the pt have substance abuse?: Yes - Immunizations Immunizations are current?: Yes - POLST Patient has POLST: No PD ED PE NORMAL - Vitals Vital signs reviewed: Yes - General General: Alert and oriented X 3, No acute distress - Derm Derm: Normal color, Warm and dry - Extremities Extremities: Other (She has diffuse tenderness of everywhere on her back, the hip, the leg. Most consistent with a fibromyalgia type exam. She is not specifically tender over the hip and she is able to walk and bear weight.) - Neuro Neuro: Alert and oriented X 3 Results - Vitals Vitals: Vital Signs - 24 hr 10/14/23 17:47 Temperature 36.3 C L Heart Rate 93 Respiratory 18 Rate Blood Pressure 121/84 H O2 Saturation 100 Oxygen O2 Source Room air PD Medical Decision Making - ED course ED course: 28-year-old woman with the above history presents with atraumatic right hip pain. Nothing in the history or physical to suggest the need for imaging today. She is administered oxycodone, Toradol, and prednisone in the ED. Departure - Departure Disposition: 01 Home, Self Care Clinical Impression: Hip pain, right Condition: Good Record reviewed to determine appropriate education?: Yes Instructions: ED Strain Muscle Ext Prescriptions: predniSONE [Deltasone] 40 mg PO DAILY 5 Days #10 tablet Meloxicam [Mobic] 7.5 mg PO BID PRN #20 tablet PRN Reason: Pain oxyCODONE [Roxicodone] 5 mg PO Q4-6H PRN #15 tablet PRN Reason: Pain Comments: I [facility] [place]. Call your doctor to arrange a follow-up appointment, make the next available appointment. In the interim, return anytime if worse or if new symptoms develop. I am prescribing a short course of narcotic pain medication for you. These are potentially dangerous and addictive medications that should be used carefully. These medications may constipate you. Take an qotf-haf-oweteri stool softener (docusate) twice daily with plenty of water while taking these medications. If you go 24 hours without a bowel movement, take [id number] miralax, per package instructions. Do not drink or drive while taking these medications. If you received narcotic or sedating medications while in the emergency department, do not drive for 24 hours. Store this medication in a safe, secure place and out of reach of children. It is a violation of federal law to give or sell this medication to another person or to use in a manner other than prescribed. The ED will not refill narcotic prescriptions, including prescriptions lost or stolen. To dispose of unwanted medications: 1. [facility] provides a drop box for medication in pill form only (no liquids) 8:00 am to 4:30 p.m. Monday-Monday in the lobby of the [facility] [place], [address] [place] [address]. Empty pills into ziplock bag before disposal. Call [phone] for information. 2.[employer] is a free service available to all [facility] residents. Go to [email or web address] Note that many narcotic pain relievers also contain Tylenol/acetaminophen. Please ensure that your total dose of acetaminophen from all sources does not exceed 3 g (3000 mg) per day.
[2023-10-14] MEDS: predniSONE 20 MG TABLET PO STA (18:35)
[2023-10-14] MEDS: KETOROLAC 60 MG/2 ML VIAL IM STA (18:35)
[2023-10-14] MEDS: oxyCODONE 5 MG TABLET PO STA (18:35)
== END 2023-10-14 19:03 | disposition home or self-care (01) ==
LOC: ED 17:43
DX: M25.551 Pain in right hip (principal); I49.9 Cardiac arrhythmia, unspecified; J45.909 Unspecified asthma, uncomplicated; M79.7 Fibromyalgia; Q79.60 Ehlers-Danlos syndrome, unspecified; G89.29 Other chronic pain; Z79.899 Other long term (current) drug therapy
CPT/HCPCS: 96372; 99283; A9270; J7512

== ENCOUNTER 2023-11-22 17:45 | Emergency (ER) | payer OTHER ==
--- NOTE | 2023-11-22 18:23 | ED Physician Documentation ---
PD HPI UPPER EXT INJURY - Stated complaint Stated Complaint: RT SHOULDER PX - Chief complaint Chief Complaint: Ext Problem - History obtained from History obtained from: Patient - Additonal information Additional information: 28-year-old with history of Julisa-Danlos and fibromyalgia has had problems with the left rotator cuff and is seeing a specialist for that in [place]. She presents today having felt a pop in the right shoulder with significant pain while playing with her daughter to play structure just prior to arrival. There is no fall or major mechanism of injury. 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: Ovarian cysts, Other : Chronic bladder infection HEENT: None Psych: Depression, Anxiety, Panic attacks, Claustrophobia Musculoskeletal: Fibromyalgia, Other Derm: None - Past Surgical History Past Surgical History: Yes General: Cholecystectomy, Appendectomy, Colonoscopy, EGD Ortho: Arthroscopic surgery /RECYCLING COORDINATOR: Other HEENT: Other - Present Medications Home Medications: Ambulatory Orders Medication Instructions Recorded Confirmed Elagolix Sodium [Orilissa] 200 mg PO BID 09/18/23 11/22/23 Pregabalin [Lyrica] 75 mg PO BID 09/18/23 11/22/23 Propranolol ER [Inderal LA] 60 mg PO DAILY 09/18/23 11/22/23 Venlafaxine ER [Effexor ER] 225 mg PO DAILY 09/18/23 11/22/23 Acetaminophen [Acetaminophen Extra 1 tab PO PRN PRN 11/22/23 11/22/23 Strength] Ibuprofen [Advil] 1 tab PO PRN PRN 11/22/23 11/22/23 ONDANSETRON ODT Prepack 2 [ZOFRAN 1 tab PO DAILY 11/22/23 11/22/23 ODT] - Allergies Allergies/Adverse Reactions: Allergies Allergy/AdvReac Type Severity Reaction Status Date / Time amoxicillin Allergy Unknown Verified 11/22/23 17:53 doxycycline Allergy Unknown Verified 11/22/23 17:53 Iodinated Contrast Media Allergy Hives Verified 11/22/23 17:53 lidocaine Allergy Edema Verified 11/22/23 17:53 Penicillins Allergy Rash Verified 11/22/23 17:53 - Social History Does the pt smoke?: No Smoking Status: Never smoker Does the pt drink ETOH?: Yes Does the pt have substance abuse?: Yes - Immunizations Immunizations are current?: Yes - POLST Patient has POLST: No PD ED PE NORMAL - Vitals Vital signs reviewed: Yes - General General: Alert and oriented X 3, No acute distress - Extremities Extremities: Other (Diffuse tenderness of the right shoulder and unable to range it.) - Neuro Neuro: Alert and oriented X 3, Normal speech Results - Vitals Vitals: Vital Signs - 24 hr 11/22/23 11/22/23 17:46 18:57 Temperature 37.1 C 36.7 C Heart Rate 63 78 Respiratory 16 16 Rate Blood Pressure 121/75 134/82 H O2 Saturation 99 100 Oxygen O2 Source Room air - Rads (name of study) Right shoulder x-ray is unremarkable Relevant Findings:: Final report received, EMP independent interpretation of test PD Medical Decision Making - ED course ED course: 28-year-old woman with right shoulder injury. A minor mechanism. Has had rotator cuff issues on the opposite side in the past and is seeing an orthopedist for same. Somewhat frequent ED use per ED i.e., about 15 in the last year with frequent narcotic prescriptions. She received 5 mg of oxycodone while in the department Departure - Departure Disposition: 01 Home, Self Care Clinical Impression: Right shoulder pain Condition: Good Record reviewed to determine appropriate education?: Yes Instructions: ED Sprain Shoulder Comments: You should follow-up with your orthopedics, call tomorrow for an appointment. When you go to that appointment take the copy of the x-ray on CD with you. Do the range of motion exercises to prevent a frozen shoulder as discussed. Return for new or worsening symptoms. Tylenol and/or ibuprofen as needed for the pain. You can also use heat and/or ice alternating. Forms: PCP List Discharge Date/Time: 11/22/23 18:57
[2023-11-22] MEDS: oxyCODONE 5 MG TABLET PO STA (18:29)
--- NOTE | 2023-11-22 18:57 | XRAY Report ---
PROCEDURE: Shoulder 2+V RT INDICATIONS: shoulder inj TECHNIQUE: 3 views of the shoulder were acquired. COMPARISON: Chest radiograph dated 06/10/2023. FINDINGS: Bones: No fractures or dislocations. No suspicious bony lesions. Visualized ribs appear intact. Soft tissues: No suspicious soft tissue calcifications. The visualized lungs are within normal limi ts. IMPRESSION: No acute bony abnormality. Reviewed by: Víctor Bender MD on 11/22/2023 6:56 PM PDT Approved by: Víctor Bender MD on 11/22/2023 6:56 PM PDT Station ID: [id number]
[2023-11-22 19:02] VITALS: BP 134/82; O2SAT 100
== END 2023-11-22 18:57 | disposition home or self-care (01) ==
LOC: ED 17:45
DX: M25.511 Pain in right shoulder (principal); Q79.60 Ehlers-Danlos syndrome, unspecified; M79.7 Fibromyalgia; I49.9 Cardiac arrhythmia, unspecified; Z79.899 Other long term (current) drug therapy
CPT/HCPCS: 73030; 99283; A9270

== ENCOUNTER 2023-11-23 04:03 | Emergency (ER) | payer OTHER ==
--- NOTE | 2023-11-23 05:38 | ED Physician Documentation ---
History of Present Illness - Stated complaint Stated Complaint: R SHOULDER PX - Chief complaint Chief Complaint: Ext Problem - History obtained from History obtained from: Patient - Additonal information Additional information: HPI from patient. Patient complains of right shoulder pain, atraumatic, since 2 PM yesterday. She says she had sudden onset of right shoulder pain when lifting her arm but ot herwise no particular inciting event or injury. The pain has been constant since onset, associated with a sensation of swelling around the anterior aspect of the right shoulder. The pain is distinctly worse with movement, palpation. She was treated and released from this emergency department approximately 12 hours ago for same c/o; xrays of the right shoulder were unremarkable and she was given 5mg PO oxycodone and instructed to follow up with her orthopedic surgeon. Patient says she was instructed to return to the emergency department if the symptoms worsen, and she is returning at this time due to worsening pain. Patient has 17 [facility] emergency department visits over the past 12 months to 3 different emergency departments. Over the past 10 years, she has 55 visits in [facility] to [facility] ED. Patient says she has an rn orthopedic for problems with her left shoulder, specifically related to rotator cuff injury, but that she has never had these problems with her right shoulder. PMHx includes Julisa-Danlos and fibromyalgia. 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, Other : Chronic bladder infection HEENT: None Psych: Depression, Anxiety, Panic attacks, Claustrophobia Musculoskeletal: Fibromyalgia, Other Derm: None - Past Surgical History Past Surgical History: Yes General: Cholecystectomy, Appendectomy, Colonoscopy, EGD Ortho: Arthroscopic surgery /STONEWORK SUPERVISOR: Other HEENT: Other - Present Medications Home Medications: Ambulatory Orders Medication Instructions Recorded Confirmed Elagolix Sodium [Orilissa] 200 mg PO BID 09/18/23 11/23/23 Pregabalin [Lyrica] 75 mg PO BID 09/18/23 11/23/23 Propranolol ER [Inderal LA] 60 mg PO DAILY 09/18/23 11/23/23 Venlafaxine ER [Effexor ER] 225 mg PO DAILY 09/18/23 11/23/23 Acetaminophen [Acetaminophen Extra 1 tab PO PRN PRN 11/22/23 11/23/23 Strength] Ibuprofen [Advil] 1 tab PO PRN PRN 11/22/23 11/23/23 ONDANSETRON ODT Prepack 2 [ZOFRAN 1 tab PO DAILY 11/22/23 11/23/23 ODT] - Allergies Allergies/Adverse Reactions: Allergies Allergy/AdvReac Type Severity Reaction Status Date / Time amoxicillin Allergy Unknown Verified 11/23/23 04:12 doxycycline Allergy Unknown Verified 11/23/23 04:12 Iodinated Contrast Media Allergy Hives Verified 11/23/23 04:12 lidocaine Allergy Edema Verified 11/23/23 04:12 Penicillins Allergy Rash Verified 11/23/23 04:12 - Social History Does the pt smoke?: No Smoking Status: Never smoker Does the pt drink ETOH?: Yes Does the pt have substance abuse?: Yes - Immunizations Immunizations are current?: Yes - POLST Patient has POLST: No PD ED PE NORMAL - Vitals Vital signs reviewed: Yes - General General: Alert and oriented X 3, No acute distress, Well developed/nourished - Derm Derm: Normal color - Extremities Extremities: No edema (no visible edema of right shoulder) PD ED PE EXPANDED - Extremities Extremities: Limited ROM (patient holds the right shoulder in adduction, internal rotation. the joint is not hot to touch nor erythematous. there is generalized TTP without bony deformity nor crepitus. no echymosis) Results - Vitals Vitals: Oxygen O2 Source Room air PD Medical Decision Making - ED course Complexity details: considered differential, d/w patient ED course: Given the lack of inciting event at symptom onset aside from simply elevating her arm, and lack of findings on exam to suggest an emergent diagnosis (such as septic joint, pathologic fracture), further emergent testing is not indicated at this time. X-rays performed yesterday afternoon in this emergency department of the right shoulder were unremarkable. She is given 30 mg IM Toradol and 10 mg p.o. Vicodin. I reiterated the need to seek follow-up with her rn orthopedic, next available appointment. She is placed in a sling for comfort. Departure - Departure Disposition: Home, Self Care Clinical Impression: Right shoulder pain Qualifiers: Chronicity: acute Qualified Code(s): M25.511 - Pain in right shoulder Condition: Good Instructions: ED Shoulder Pain UKO Comments: As we discussed, at this time there is no indication for further emergent testing. However, you need to follow-up with your primary care provider, as you might benefit from further testing the outpatient setting. Discharge Date/Time: 11/23/23 06:42
[2023-11-23] MEDS: HYDROcod/ACETAM 5/325 MG TABLET PO STA (06:16)
[2023-11-23] MEDS: KETOROLAC 60 MG/2 ML VIAL IM STA (06:20)
[2023-11-23 06:58] VITALS: BP 118/71; O2SAT 100
== END 2023-11-23 06:42 | disposition home or self-care (01) ==
LOC: ED 04:03
DX: M25.511 Pain in right shoulder (principal); Z79.899 Other long term (current) drug therapy
CPT/HCPCS: 96372; 99283; A9270

== ENCOUNTER 2024-01-09 11:46 | Outpatient (CLI) | payer OTHER ==
--- NOTE | 2024-01-09 15:27 | Ultrasound Report ---
PROCEDURE: Abdomen Limited INDICATIONS: HEPATIC HEMANGIOMA TECHNIQUE: Real-time focused scanning was performed of the abdomen, with image documentation. COMPARISONS: CT abdomen and pelvis 03/28/2023. FINDINGS: Liver: Liver is normal in size and increased in echogenicity. In the right hepatic lobe, there is a 1.9 x 1.4 x 1.4 cm lesion which is mildly hyperechoic, not well seen due to surrounding steatosis, fa vored represent a hemangioma. Gallbladder: Surgically absent. Biliary ducts: Intrahepatic bile ducts are non-dilated. Extrahepatic bile duct caliber measures 3.0 mm. Normal is 6-7 mm or less in diameter, or 10 mm or less post-cholecystectomy. Pancreas: Visualized portions of the pancreas are sonographically normal. Tail is not well seen seco ndary to overlying bowel gas. Right kidney: Normal in size and echotexture. Right kidney measures 10.2 cm long. No hydronephrosis or nephrolithiasis. No solid masses. No complex renal cystic lesions which require follow-up. Miscellaneous: No free abdominal fluid. IMPRESSION: 1.Hepatic steatosis. 2.Mildly hyperechoic lesion within the right hepatic lobe measuring 1.9 cm, likely a hemangioma. 3.Status post cholecystectomy. Reviewed by: Edil Dunn MD on 01/09/2024 3:26 PM PDT Approved by: Edil Dunn MD on 01/09/2024 3:26 PM PDT Station ID: [id number]
== END 2024-01-09 11:47 | disposition home or self-care (01) ==
LOC: DI 11:46
PROVIDERS: ATTEND Family Medicine
DX: D18.03 Hemangioma of intra-abdominal structures (principal); K76.0 Fatty (change of) liver, not elsewhere classified; Z90.49 Acquired absence of other specified parts of digestive tract

== ENCOUNTER 2024-01-12 02:35 | Emergency (ER) | payer OTHER ==
[2024-01-12 02:54] VITALS: BP 130/73; O2SAT 100
[2024-01-12 03:00] LABS: BILIRUBIN,URINE NEGATIVE (NEGATIVE); GLUCOSE, URINE (UA) NEGATIVE (NEGATIVE); KETONES,URINE (UA) NEGATIVE (NEGATIVE); LEUKOCYTE ESTERASE, URINE NEGATIVE (NEGATIVE); NITRITE,URINE NEGATIVE (NEGATIVE); OCCULT BLOOD,URINE NEGATIVE (NEGATIVE); PROTEIN,URINE NEGATIVE (NEGATIVE); UROBILINOGEN,URINE 0.2 (NORMAL) E.U./dL (NORMAL)
[2024-01-12 03:01] LABS: HCG UR QUAL NEGATIVE
[2024-01-12 03:02] LABS: CLARITY,URINE CLEAR (CLEAR)
[2024-01-12 03:06] LABS: BACTERIA,URINE Rare /HPF (None Seen); RBC,URINE 0-5 /HPF (0-5); SQUAMOUS EPITHELIAL CELL,UR MANY Squamous (<= Few); WBC,URINE 0-3 /HPF (0-5)
--- NOTE | 2024-01-12 03:08 | ED Physician Documentation ---
History of Present Illness - Stated complaint Stated Complaint: - Chief complaint Chief Complaint: Abd Pain - History obtained from History obtained from: Patient - Additonal information Additional information: 28yF p/w L groin swelling and erythema X 2 days of unknown origin. painful with pressing on area. no known trauma. no hx sti. denies urinary sx. 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, Other : Chronic bladder infection HEENT: None Psych: Depression, Anxiety, Panic attacks, Claustrophobia Musculoskeletal: Fibromyalgia, Other Derm: None Other Past Medical History: POTS - Past Surgical History Past Surgical History: Yes General: Cholecystectomy, Appendectomy, Colonoscopy, EGD Ortho: Arthroscopic surgery /CHOPPED STRAND OPERATOR: Other HEENT: Other - Present Medications Home Medications: Ambulatory Orders Medication Instructions Recorded Confirmed Elagolix Sodium [Orilissa] 200 mg PO BID 09/18/23 11/23/23 Pregabalin [Lyrica] 75 mg PO BID 09/18/23 11/23/23 Propranolol ER [Inderal LA] 60 mg PO DAILY 09/18/23 11/23/23 Venlafaxine ER [Effexor ER] 225 mg PO DAILY 09/18/23 11/23/23 Acetaminophen [Acetaminophen Extra 1 tab PO PRN PRN 11/22/23 11/23/23 Strength] Ibuprofen [Advil] 1 tab PO PRN PRN 11/22/23 11/23/23 ONDANSETRON ODT Prepack 2 [ZOFRAN 1 tab PO DAILY 11/22/23 11/23/23 ODT] clindamycin HCL [Clindamycin HCl] 300 mg PO QID #28 cap 01/12/24 - Allergies Allergies/Adverse Reactions: Allergies Allergy/AdvReac Type Severity Reaction Status Date / Time amoxicillin Allergy Unknown Verified 01/12/24 02:44 doxycycline Allergy Unknown Verified 01/12/24 02:44 Iodinated Contrast Media Allergy Hives Verified 01/12/24 02:44 lidocaine Allergy Edema Verified 01/12/24 02:44 Penicillins Allergy Rash Verified 01/12/24 02:44 - Social History Does the pt smoke?: No Smoking Status: Never smoker Does the pt drink ETOH?: Yes Does the pt have substance abuse?: Yes - Immunizations Immunizations are current?: Yes - POLST Patient has POLST: No PD ED PE NORMAL - Vitals Vital signs reviewed: Yes - General General: Alert and oriented X 3, No acute distress, Well developed/nourished - HEENT HEENT: Atraumatic, PERRL, EOMI, Moist mucous membranes, Pharynx benign - Abdomen Abdomen: Non tender, Non distended - Female Female : Other (L inguinal area nontender with no palpable hernia or LAD. L mons pubis with 1cm area of erythema with mild induration under the epidermis. POCUS shows phlegmon but no abscess formation) - Derm Derm: Normal color, Warm and dry Results - Vitals Vitals: Vital Signs - 24 hr 01/12/24 02:39 Temperature 36.9 C Heart Rate 123 H Respiratory 16 Rate Blood Pressure 130/73 O2 Saturation 100 Oxygen O2 Source Room air - Labs Labs: Laboratory Tests 01/12/24 01/12/24 02:47 02:47 Urine Color YELLOW Urine Clarity CLEAR Urine pH 6.0 Ur Specific [place] 1.025 Urine Protein NEGATIVE Urine Glucose (UA) NEGATIVE Urine Ketones NEGATIVE Urine Occult Blood NEGATIVE Urine Nitrite NEGATIVE Urine Bilirubin NEGATIVE Urine Urobilinogen 0.2 (NORMAL) Ur Leukocyte Esterase NEGATIVE Urine RBC 0-5 Urine WBC 0-3 Ur Squamous Epith Cells MANY Squamous H Urine Bacteria Rare Urine Culture Comments NOT INDICATED Urine HCG, Qual NEGATIVE PD Medical Decision Making - ED course ED course: 28yF p/w L mons pubis cellulitis vs developing phlegmon likely 2/2 ingrown hair from shaving. antibiotics sent to pharmacy and strict return precautions given. she will f/u for recheck with time study observer or WIC in 48 hours. Departure - Departure Disposition: 01 Home, Self Care Clinical Impression: Ingrown hair Condition: Stable Instructions: Cellulitis Dc Prescriptions: clindamycin HCL [Clindamycin HCl] 300 mg PO QID #28 cap Comments: You were seen in the emergency department for skin infection of the pubic area, possibly caused by ingrown hair. Antibiotics sent to [facility]. Please follow-up with your time study observer and return to the emergency department if you have any new or worsening symptoms or other concerns. Forms: PCP List
== END 2024-01-12 03:09 | disposition home or self-care (01) ==
LOC: ED 02:35
DX: L03.311 Cellulitis of abdominal wall (principal); L73.1 Pseudofolliculitis barbae; J45.909 Unspecified asthma, uncomplicated; Z32.02 Encounter for pregnancy test, result negative
CPT/HCPCS: 81001; 81025; 87086; 99283

== ENCOUNTER 2024-02-25 19:04 | Emergency (ER) | payer OTHER ==
[2024-02-25 19:38] VITALS: BP 118/82; O2SAT 100
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
[2024-02-25] MEDS: KETOROLAC 60 MG/2 ML VIAL IM STA (20:25)
[2024-02-25] MEDS: HYDROcod/ACET 5/325 Prepack 4 PO STA (20:25)
[2024-02-25] MEDS: predniSONE 20 MG TABLET PO STA (20:26)
== END 2024-02-25 20:30 | disposition home or self-care (01) ==
LOC: ED 19:04
DX: M54.50 Low back pain, unspecified (principal); G89.29 Other chronic pain; Z79.899 Other long term (current) drug therapy
CPT/HCPCS: 96374; 99283; J7512

== ENCOUNTER 2024-04-12 18:14 | Emergency (ER) | payer OTHER ==
--- NOTE | 2024-04-12 18:32 | ED Physician Documentation ---
PD HPI ABD PAIN - Stated complaint Stated Complaint: - Chief complaint Chief Complaint: Abd Pain - History obtained from History obtained from: Patient - Additional information Additional information: 28-year-old woman with history of remote appendectomy, cholecystectomy, and a exploratory laparoscopy for pelvic issues as well as lupus, Julisa-Danlos, asthma, depression, anxiety, panic attacks presents for evaluation of abdominal distention. She states she had C. difficile which was difficult to eradicate, finally getting rid of that about a year ago. Over the last week she feels like her abdomen is distended with soft small stools that look like pearls, nausea and vomiting. No possibility of she says it with recent negative test proceeding Depo-Provera shot. 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, Other : Chronic bladder infection HEENT: None Psych: Depression, Anxiety, Panic attacks, Claustrophobia Musculoskeletal: Fibromyalgia, Other Derm: None - Past Surgical History Past Surgical History: Yes General: Cholecystectomy, Appendectomy, Colonoscopy, EGD Ortho: Arthroscopic surgery /UMBRELLA REPAIRER: Other HEENT: Other - Present Medications Home Medications: Ambulatory Orders Medication Instructions Recorded Confirmed Elagolix Sodium [Orilissa] 200 mg PO BID 09/18/23 11/23/23 Pregabalin [Lyrica] 75 mg PO BID 09/18/23 11/23/23 Propranolol ER [Inderal LA] 60 mg PO DAILY 09/18/23 11/23/23 Venlafaxine ER [Effexor ER] 225 mg PO DAILY 09/18/23 11/23/23 Acetaminophen [Acetaminophen Extra 1 tab PO PRN PRN 11/22/23 11/23/23 Strength] Ibuprofen [Advil] 1 tab PO PRN PRN 11/22/23 11/23/23 ONDANSETRON ODT Prepack 2 [ZOFRAN 1 tab PO DAILY 11/22/23 11/23/23 ODT] clindamycin HCL [Clindamycin HCl] 300 mg PO QID #28 cap 01/12/24 HYDROcod/ACETAM 5/325 [[place] 5/325] 1 tablet PO Q6H PRN #10 tablet 02/25/24 predniSONE [Deltasone] 40 mg PO DAILY 4 Days #8 tablet 02/25/24 - Allergies Allergies/Adverse Reactions: Allergies Allergy/AdvReac Type Severity Reaction Status Date / Time amoxicillin Allergy Unknown Verified 04/12/24 18:18 doxycycline Allergy Unknown Verified 04/12/24 18:18 Iodinated Contrast Media Allergy Hives Verified 04/12/24 18:18 lidocaine Allergy Edema Verified 04/12/24 18:18 Penicillins Allergy Rash Verified 04/12/24 18:18 - Social History Does the pt smoke?: No Smoking Status: Never smoker Does the pt drink ETOH?: Yes Does the pt have substance abuse?: Yes - Immunizations Immunizations are current?: Yes - POLST Patient has POLST: No PD ED PE NORMAL - Vitals Vital signs reviewed: Yes - General General: Alert and oriented X 3, No acute distress - Cardiac Cardiac: RRR, No murmur - Respiratory Respiratory: No respiratory distress, Clear bilaterally - Abdomen Abdomen: Other (Distended abdomen with mild diffuse tenderness and diminished to absent bowel sounds.) - Neuro Neuro: Alert and oriented X 3, Normal speech Results - Vitals Vitals: Vital Signs - 24 hr 04/12/24 18:18 Temperature 36.6 C Heart Rate 98 Respiratory 16 Rate Blood Pressure 128/81 H O2 Saturation 100 Oxygen O2 Source Room air - Labs Labs: Laboratory Tests 04/12/24 18:34 WBC 10.4 RBC 4.39 Hgb 14.1 Hct 39.7 MCV 90.4 MCH 32.1 H MCHC 35.5 RDW 12.3 Plt Count 332 MPV 9.5 Neut # (Auto) 6.5 Lymph # (Auto) 3.3 [place] # (Auto) 0.5 Eos # (Auto) 0.1 Baso # (Auto) 0.0 Absolute Nucleated RBC 0.00 Nucleated RBC % 0.0 PD Medical Decision Making - ED course ED course: 28-year-old woman presents with abdominal distention, she is concerned about recurrence of C. difficile as she has had that before but seems less likely given lack of diarrhea or lack of recent antibiotics. Her examination would actually be more concerning for constipation and/or bowel obstruction given distention and lack of bowel sounds and vomiting. Will obtain CT imaging and labs. Care to overnight emergency physician at shift change pending completion of workup. Departure - Departure Clinical Impression: Abdominal pain Qualifiers: Abdominal location: generalized Qualified Code(s): R10.84 - Generalized abdominal pain Condition: Stable Forms: PCP List
[2024-04-12] MEDS: ONDANSETRON ODT 4 MG TABLET TL STA (18:41)
[2024-04-12] MEDS: HYDROmorphone 1 MG/ML CARPUJECT IM STA ×2 (18:41→22:16)
[2024-04-12 18:45] LABS: BASOPHILS % (AUTO) 0.3 %; EOSINOPHILS # (AUTO) 0.1 10^3/uL (0.0-0.7); EOSINOPHILS % (AUTO) 0.6 %; HCT - HEMATOCRIT 39.7 % (37.0-47.0); HGB - HEMOGLOBIN 14.1 g/dL (12.0-16.0); LYMPHOCYTES # (AUTO) 3.3 10^3/uL (1.5-3.5); LYMPHOCYTES % (AUTO) 31.8 %; MEAN CORPUSCULAR HEMOGLOBIN 32.1 pg (27.0-31.0); MEAN CORPUSCULAR HGB CONC 35.5 g/dL (32.0-36.0); MEAN CORPUSCULAR VOLUME 90.4 fL (81.0-99.0); MEAN PLATELET VOLUME 9.5 fL (7.9-10.8); MONOCYTES # (AUTO) 0.5 10^3/uL (0.0-1.0); MONOCYTES % (AUTO) 4.9 %; NEUTROPHILS # (AUTO) 6.5 10^3/uL (1.5-6.6); NEUTROPHILS % (AUTO) 62.1 %; PLT - PLATELET COUNT 332 10^3/uL (130-450); RED BLOOD COUNT 4.39 10^6/uL (4.20-5.40); RED CELL DISTRIBUTION WIDTH 12.3 % (12.0-15.0); WHITE BLOOD COUNT 10.4 x10^3/uL (4.8-10.8)
[2024-04-12 18:58] LABS: ALBUMIN 4.1 g/dL (3.2-5.5); ALBUMIN/GLOBULIN RATIO 1.5 (1.0-2.2); ALKALINE PHOSPHATASE 102 IU/L (42-121); ALT ALANINE AMINOTRANSFERASE 12 IU/L (10-60); AST ASPARTATE AMINOTRANSFERASE 12 IU/L (10-42); BILIRUBIN,TOTAL 0.6 mg/dL (0.2-1.0); BUN - BLOOD UREA NITROGEN 11 mg/dL (6-20); CALCIUM 9.4 mg/dL (8.5-10.3); CARBON DIOXIDE - CO2 19 mmol/L (21-32); CHLORIDE 110 mmol/L (101-111); CREATININE 0.7 mg/dL (0.6-1.3); GFR - MDRD 100 (>89); GLUCOSE 106 mg/dL (74-104); POTASSIUM 3.5 mmol/L (3.5-4.5); SODIUM 137 mmol/L (135-145); TOTAL PROTEIN 6.9 g/dL (6.4-8.9)
[2024-04-12 19:08] LABS: LIPASE < 10 U/L (11-82)
[2024-04-12 19:08] LABS: BILIRUBIN,URINE SMALL (NEGATIVE); GLUCOSE, URINE (UA) NEGATIVE (NEGATIVE); KETONES,URINE (UA) NEGATIVE (NEGATIVE); LEUKOCYTE ESTERASE, URINE NEGATIVE (NEGATIVE); NITRITE,URINE NEGATIVE (NEGATIVE); OCCULT BLOOD,URINE NEGATIVE (NEGATIVE); PROTEIN,URINE NEGATIVE (NEGATIVE); UROBILINOGEN,URINE 0.2 (NORMAL) E.U./dL (NORMAL)
[2024-04-12 19:19] LABS: CLARITY,URINE CLEAR (CLEAR); HCG UR QUAL NEGATIVE
[2024-04-12 20:53] VITALS: O2SAT 99
--- NOTE | 2024-04-12 21:11 | ED Physician Documentation ---
ED Addendum - Addendum Addendum: 04/12/24 22:12 I received signout on this patient from Dr. Person; please see his note for complete H&P. In short, patient presents with nausea, vomiting, and abdominal pain. Blood test have already resulted and there are no diagnostic nor concerning findings on CBC ER abdominal panel. At the time of turnover of care, CT abdomen pelvis is pending. There was a substantial delay in obtaining the results of this study, but eventually reading is available from radiologist and results are unremarkable. Radiologist impression includes "no acute abnormality", "submucosal fat deposition within the rectum, without acute inflammatory changes. Findings may indicate chronic inflammation in the setting of Crohn's disease or ulcerative colitis." I discussed these results with the patient. She is in NAD. She says she is continuing to have abdominal pain. She says she is in between ga stroenterologist, with a referral in place to meet with a new one. She is given 1 mg IM Dilaudid prior to discharge. Return precautions are reviewed.
--- NOTE | 2024-04-12 21:56 | CT Report ---
PROCEDURE: Abdomen/Pelvis WO INDICATIONS: abd pain TECHNIQUE: A CT scan of the abdomen and pelvis was performed without the use of intravenous contrast. Images we re recorded and evaluated at appropriate window settings. Reformats: coronal and sagittal. For radiat ion dose reduction, the following was used: automated exposure control, adjustment of mA and/or kV ac cording to patient size. COMPARISON: None. FINDINGS: Image quality: Diagnostic. Lower chest: Unremarkable. Liver: No contour-deforming mass. Gallbladder: Surgically absent. Biliary tree: No intrahepatic or extrahepatic dilation, accounting for age. Spleen: No splenomegaly. Pancreas: No pancreatic ductal dilation. Adrenals: No adrenal nodule. Kidneys and ureters: No hydronephrosis. No contour-deforming mass. Stomach, bowel and peritoneum: No gastric or small bowel dilation. No abnormal wall thickening. No pa thologic free fluid. Appendectomy. Submucosal fat deposition within the rectum, without inflammatory changes at this time. Lymph nodes: No central or retroperitoneal adenopathy. Vessels: No infrarenal aortic aneurysm. Reproductive organs: Unremarkable. Bladder: Bladder wall thickness is normal, accounting for underdistention. No calcified bladder stone s. Pelvic lymph nodes: No adenopathy by size criteria. Bones: No aggressive osseous abnormality. Other: No significant ventral or inguinal hernia. IMPRESSION: No acute abnormality. No hydronephrosis or obstructing nephrolithiasis. Submucosal fat deposition within the rectum, without acute inflammatory changes. Findings may indicat e chronic inflammation in the setting of Crohn's disease or ulcerative colitis. Correlate with histor y and consider GI referral. Reviewed by: Micheal Edouard MD on 04/12/2024 9:55 PM PDT Approved by: Micheal Edouard MD on 04/12/2024 9:55 PM PDT Station ID: [id number]
[2024-04-12 22:24] VITALS: BP 108/61
== END 2024-04-12 22:24 | disposition home or self-care (01) ==
LOC: ED 18:14
DX: R10.84 Generalized abdominal pain (principal); Z32.02 Encounter for pregnancy test, result negative; Z86.19 Personal history of other infectious and parasitic diseases
CPT/HCPCS: 36415; 74176; 80053; 81003; 81025; 83690; 85025; 87493; 96372; 99284; J1170; Q0162; 81001; 87086

== ENCOUNTER 2024-04-29 12:44 | Emergency (ER) | payer OTHER ==
[2024-04-29 13:10] VITALS: O2SAT 100
--- NOTE | 2024-04-29 15:34 | ED Physician Documentation ---
PD HPI BACK PAIN - Stated complaint Stated Complaint: BACK PX - Chief complaint Chief Complaint: Back Pain - History obtained from History obtained from: Patient - History of Present Illness Timing - onset: Chronic Timing - duration: Years Timing - details: Gradual onset Pain level max: 8 Pain level now: 8 Location: Lower Quality: Pain, Spasm, Similar to prior episodes Associated symptoms: No: Fever, Weakness, Incontinent of urine, Unable to urinate, Hematuria, Incontinent of stool Improves with: Rest Worsened by: Movement - Additional information Additional information: Patient is a 29-year-old female who presents to the emergency department with chronic back pain. She had an MRI in February showing right sided sacroiliitis, states that improved with steroids but the pain is worsening again. 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 No IV drug use. No fevers. No recent trauma. No loss of bowel or bladder control. Pain is similar to prior episodes. She states that oxycodone is worked well in the past. She states the prednisone tapers works better than Medrol Dosepaks. Denies any possibility of . Has tingling down the legs, this is chronic as well. 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, Other : Chronic bladder infection HEENT: None Psych: Depression, Anxiety, Panic attacks, Claustrophobia Musculoskeletal: Osteoarthritis, Fibromyalgia, Other Derm: None Other Past Medical History: POTS - Past Surgical History Past Surgical History: Yes General: Cholecystectomy, Appendectomy, Colonoscopy, EGD Ortho: Arthroscopic surgery /THERAPEUTIC RADIOLOGIST: Other HEENT: Other - Present Medications Home Medications: Ambulatory Orders Medication Instructions Recorded Confirmed Propranolol ER [Inderal LA] 60 mg PO DAILY 09/18/23 04/29/24 Venlafaxine ER [Effexor ER] 225 mg PO DAILY 09/18/23 04/29/24 Acetaminophen [Acetaminophen Extra 1 tab PO PRN PRN 11/22/23 04/29/24 Strength] Ibuprofen [Advil] 1 tab PO PRN PRN 11/22/23 04/29/24 ONDANSETRON ODT Prepack 2 [ZOFRAN 1 tab PO DAILY 11/22/23 11/23/23 ODT] oxyCODONE [Roxicodone] 5 - 10 mg PO Q6H PRN #14 tablet 04/29/24 MDD 6 predniSONE [Deltasone] 10 mg PO [id number] #42 tab 04/29/24 - Allergies Allergies/Adverse Reactions: Allergies Allergy/AdvReac Type Severity Reaction Status Date / Time amoxicillin Allergy Unknown Verified 04/29/24 12:55 doxycycline Allergy Unknown Verified 04/29/24 12:55 Iodinated Contrast Media Allergy Hives Verified 04/29/24 12:55 lidocaine Allergy Edema Verified 04/29/24 12:55 Penicillins Allergy Rash Verified 04/29/24 12:55 - Social History Does the pt smoke?: No Smoking Status: Never smoker Does the pt drink ETOH?: No Does the pt have substance abuse?: Yes Substance Use and Type: Marijuana - Immunizations Immunizations are current?: Yes - POLST Patient has POLST: No PD ED PE NORMAL - Vitals Vital signs reviewed: Yes - General General: Alert and oriented X 3, No acute distress, Well developed/nourished - HEENT HEENT: PERRL, Moist mucous membranes - Neck Neck: Supple, no meningeal sign - Cardiac Cardiac: RRR - Respiratory Respiratory: No respiratory distress, Clear bilaterally - Abdomen Abdomen: Soft, Non tender, Non distended - Back Back: Other (Tender to palpation over the right sacroiliac joint. No midline tenderness to palpation or percussion. No step-off or deformity.) - Derm Derm: Warm and dry - Extremities Extremities: Other (Normal bilateral lower extremity patellar and ankle jerk reflexes. Normal great toe extension bilaterally. no saddle anesthesia) - Neuro Neuro: Alert and oriented X 3 - Psych Psych: Normal mood, Normal affect Results - Vitals Vitals: Vital Signs - 24 hr 04/29/24 04/29/24 12:55 15:43 Temperature 36.8 C Heart Rate 89 74 Respiratory 18 16 Rate Blood Pressure 117/73 118/78 O2 Saturation 100 100 Oxygen O2 Source Room air PD Medical Decision Making - ED course Complexity details: considered differential (No cauda equina, no spinal epidural abscess, no fracture, no aortic dissection or evidence of aneursym rupture), d/w patient ED course: Patient is a 29-year-old female who presents to the emergency department with an acute exacerbation of her right sided sacroiliitis. She has been followed by a spine surgeon for this. She states that steroids and pain medication have helped in the past. Will prescribe a small amount of oxycodone along with a prednisone taper. No new focal neurological deficits. No evidence of cauda equina, epidural abscess. No IV drug use. No fevers. No indication for emergent imaging. Patient counseled regarding signs and symptoms for which I believe and urgent re-evaluation would be necessary. Patient with good understanding of and agreement to plan and is comfortable going home at this time This document was made in part using voice recognition software. While efforts are made to proofread this document, sound alike and grammatical errors may occur. Departure - Departure Disposition: 01 Home, Self Care Clinical Impression: Sacroiliitis Condition: Good Instructions: ED Sacroiliitis Follow-Up: BLAS CORTES MD [Primary Care Provider] - Within 1 week Prescriptions: predniSONE [Deltasone] 10 mg PO [id number] #42 tab oxyCODONE [Roxicodone] 5 - 10 mg PO Q6H PRN #14 tablet MDD 6 PRN Reason: pain Comments: Your prescription was sent to [facility] in [place]. Please follow-up with your specialist for further care. We have also placed you on steroids for your sacroiliitis. Please return if you worsen. I am prescribing a short course of narcotic pain medication for you. These are potentially dangerous and addictive medications that should be used carefully. These medications may constipate you. Take an fzss-fmc-fmnpfqd stool softener (docusate) twice daily with plenty of water while taking these medications. If you go 24 hours without a bowel movement, take musd-cuy-ukholle miralax, per pa ckage instructions. Do not drink or drive while taking these medications. If you received narcotic or sedating medications while in the emergency department, do not drive for 24 hours. Store this medication in a safe, secure place and out of reach of children. It is a violation of federal law to give or sell this medication to another person or to use in a manner other than prescribed. The ED will not refill narcotic prescriptions, including prescriptions lost or stolen. To dispose of unwanted medications: 1. [facility] at [address] in [place] has a medication drop box. They accept prescription medications (in pill form) Monday through Monday 9:00 a.m. to 5:00 p.m. 2. The [facility] Department accepts prescription medications (in pill form only) for disposal year round. Call for more information. 3. Contact the [facility] for the next [facility] sponsored prescription drug collection event. , [phone], or [phone]; Discharge Date/Time: 04/29/24 15:43
[2024-04-29] MEDS: oxyCODONE 5 MG TABLET PO STA (15:37)
[2024-04-29] MEDS: predniSONE 20 MG TABLET PO STA (15:37)
[2024-04-29 15:47] VITALS: BP 118/78
== END 2024-04-29 15:43 | disposition home or self-care (01) ==
LOC: ED 12:44
DX: M46.1 Sacroiliitis, not elsewhere classified (principal); Z79.899 Other long term (current) drug therapy
CPT/HCPCS: 99283; A9270; J7512

== ENCOUNTER 2024-05-04 17:16 | Emergency (ER) | payer OTHER ==
[2024-05-04 17:28] VITALS: BP 139/79; O2SAT 100
--- NOTE | 2024-05-04 17:39 | ED Physician Documentation ---
History of Present Illness - Stated complaint Stated Complaint: BACK PX - Chief complaint Chief Complaint: Back Pain - Additonal information Additional information: Patient is a 29-year-old female presenting to the emergency department with l ower back pain. Patient has chronic history of lower back problems. She has no well-known to this emergency department with 5 visits within the last 6 months. Patient was most recently seen earlier this week. She was diagnosed with sacroiliitis and discharged on steroid pack and pain medication of oxycodone. She notes she took 1 at home and did not have significant relief with that so stopped taking it. Patient denies any incontinence issues. No fevers or chills. She notes severe worsening pain yesterday night. She felt her legs turn purple and she has numbness and weakness to both of her legs now. She notes with her past medical history back in February she was diagnosed with right- sided sacroiliitis and she is following up with orthopedics next week for infusion treatments. Patient notes given her pain worsened last night she felt she cannot wait that long and is having severe pain today.Patient notes significant pain with walking and she has not had the symptoms before. She did not take anything for her pain as she felt oxycodone was not helpful earlier this week. She is on oral course of steroids for sacroiliitis treatment. 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, Other : Chronic bladder infection HEENT: None Psych: Depression, Anxiety, Panic attacks, Claustrophobia Musculoskeletal: Osteoarthritis, Fibromyalgia, Chronic back pain, Other Derm: None - Past Surgical History Past Surgical History: Yes General: Cholecystectomy, Appendectomy, Colonoscopy, EGD Ortho: Arthroscopic surgery /PRODUCTION FOREMAN: Other HEENT: Other - Present Medications Home Medications: Ambulatory Orders Medication Instructions Recorded Confirmed Propranolol ER [Inderal LA] 60 mg PO DAILY 09/18/23 05/04/24 Venlafaxine ER [Effexor ER] 225 mg PO DAILY 09/18/23 05/04/24 Acetaminophen [Acetaminophen Extra 1 tab PO PRN PRN 11/22/23 05/04/24 Strength] Ibuprofen [Advil] 1 tab PO PRN PRN 11/22/23 05/04/24 ONDANSETRON ODT Prepack 2 [ZOFRAN 1 tab PO DAILY 11/22/23 05/04/24 ODT] oxyCODONE [Roxicodone] 5 - 10 mg PO Q6H PRN #14 tablet 04/29/24 05/04/24 MDD 6 predniSONE [Deltasone] 10 mg PO [id number] #42 tab 04/29/24 05/04/24 - Allergies Allergies/Adverse Reactions: Allergies Allergy/AdvReac Type Severity Reaction Status Date / Time amoxicillin Allergy Unknown Verified 05/04/24 17:20 doxycycline Allergy Unknown Verified 05/04/24 17:20 Iodinated Contrast Media Allergy Hives Verified 05/04/24 17:20 lidocaine Allergy Edema Verified 05/04/24 17:20 Penicillins Allergy Rash Verified 05/04/24 17:20 - Social History Does the pt smoke?: No Smoking Status: Never smoker Does the pt drink ETOH?: No Does the pt have substance abuse?: Yes - Immunizations Immunizations are current?: Yes - POLST Patient has POLST: No PD ED PE NORMAL - Vitals Vital signs reviewed: Yes - General General: Alert and oriented X 3 - HEENT HEENT: Atraumatic - Neck Neck: Supple, no meningeal sign - Cardiac Cardiac: RRR, No murmur, No gallop, No rub - Respiratory Respiratory: No respiratory distress, Clear bilaterally - Abdomen Abdomen: Normal bowel sounds, Soft, Non tender, Non distended - Female Female : Deferred - Rectal Rectal: Deferred - Derm Derm: Normal color, Warm and dry, No rash, Other - Extremities Extremities: Other (Reproducible midline spinous process tenderness lumbar. Equal strength in lower extremities 3 out of 5 bilaterally. Sensation intact on examination. No obvious swelling good pulses intact distally. No signs of malingering on examination. Reproducible paraspinal muscle tenderness in lumbar) - Neuro Neuro: Alert and oriented X 3, magnetic resonance imaging coordinator 2-12 intact Eye Opening: Spontaneous Motor: Obeys Commands Verbal: Oriented GCS Score: 15 Results - Vitals Vitals: Vital Signs - 24 hr 05/04/24 17:20 Temperature 36.5 C Heart Rate 100 Respiratory 16 Rate Blood Pressure 139/79 H O2 Saturation 100 Oxygen O2 Source Room air - Labs Labs: Laboratory Tests 05/04/24 19:30 Urine Color YELLOW Urine Clarity CLEAR Urine pH 7.0 Ur Specific [place] 1.025 Urine Protein NEGATIVE Urine Glucose (UA) NEGATIVE Urine Ketones NEGATIVE Urine Occult Blood NEGATIVE Urine Nitrite NEGATIVE Urine Bilirubin NEGATIVE Urine Urobilinogen 0.2 (NORMAL) Ur Leukocyte Esterase NEGATIVE Ur Microscopic Review NOT INDICATED Urine Culture Comments NOT INDICATED PD Medical Decision Making - ED course Complexity details: reviewed old records, reviewed results ED course: Patient is a 29-year-old female presenting to the emergency department who is well-known to the emergency department with lower back pain radiating down her legs. She notes worsening symptoms today and yesterday with pain radiating down to bilateral legs. She notes she was seen here earlier this week diagnosed with recurrent sciatica started on another dose of steroids and pain medications of oxycodone. She notes this has not seemed to help her symptoms. She has been tried walking without relief. She denies any incontinence she notes no fevers no history of IV drug use. Patient has been compliant with medications. Given no imaging was performed at last visit we will obtain x-rays but she does have lumbar spinous process tenderness on examination. She does have full range of motion of lower extremities although weak on examination. She does have good sensation intact and good capillary refill with pulses 2+ equal bilaterally. She had x-rays performed here with no acute findings. Patient continues to report pain despite Flexeril and Toradol treatment here in emergency department. Discussed with patient she needs to follow-up in the outpatient setting with her orthopedics provider as instructed earlier this week. Patient instructed to return with any fevers worsening lower back pain loss of sensation and inability to walk home. Discussed with patient if symptoms do seem to worsen she may go to larger hospital where MRI is available as we do not have it occasionally he re.Patient agreeable with this plan. Departure - Departure Disposition: 01 Home, Self Care Clinical Impression: Bilateral low back pain with sciatica, Acute pain Condition: Fair Instructions: ED Back Care Tips, ED Sciatica Comments: You were seen here in the emergency department for your low back pain with radiation to bilateral legs. Your workup here showed no acute findings. Symptoms most likely secondary to sciatica, please continue with home taper dose of steroids. You have follow-up early next week with orthopedics please keep this appointment. Return with any difficulty urinating any incontinence issues any inability to walk. Any loss of sensation in your extremities or any other new or worsening symptoms.
[2024-05-04] MEDS: KETOROLAC 15 MG/ML VIAL IM STA (18:18)
[2024-05-04] MEDS: CYCLOBENZAPRINE 10 MG TABLET PO STA (18:18)
--- NOTE | 2024-05-04 19:12 | XRAY Report ---
PROCEDURE: Lumbar Spine 2-3V INDICATIONS: lumbar spinous process tenderness TECHNIQUE: 3 views of the lumbar spine were acquired. COMPARISON: None. FINDINGS: Surgical change: Surgical clips overlie the right hemipelvis and right upper quadrant. Bones: 5 [id number] vertebrae are present. There is normal bony alignment. No vertebral body co mpression fractures. No suspicious bony lesions. Soft tissues: Overlying bowel gas pattern is normal. No suspicious soft tissue calcifications. IMPRESSION: Normal lumbar spine. Reviewed by: Emily Del Rosario MD on 05/04/2024 6:10 PM [facility] Approved by: Emily Del Rosario MD on 05/04/2024 6:10 PM [facility]BARA Station ID: [id number]
[2024-05-04 19:39] LABS: BILIRUBIN,URINE NEGATIVE (NEGATIVE); GLUCOSE, URINE (UA) NEGATIVE (NEGATIVE); KETONES,URINE (UA) NEGATIVE (NEGATIVE); LEUKOCYTE ESTERASE, URINE NEGATIVE (NEGATIVE); NITRITE,URINE NEGATIVE (NEGATIVE); OCCULT BLOOD,URINE NEGATIVE (NEGATIVE); PROTEIN,URINE NEGATIVE (NEGATIVE); UROBILINOGEN,URINE 0.2 (NORMAL) E.U./dL (NORMAL)
[2024-05-04 19:40] LABS: CLARITY,URINE CLEAR (CLEAR)
== END 2024-05-04 22:48 | disposition home or self-care (01) ==
LOC: ED 17:16
DX: M54.42 Lumbago with sciatica, left side (principal); M54.41 Lumbago with sciatica, right side; M79.7 Fibromyalgia; J45.909 Unspecified asthma, uncomplicated; Z79.899 Other long term (current) drug therapy
CPT/HCPCS: 72100; 81003; 96372; 99283; 99284; A9270; 81001; 87086

== ENCOUNTER 2024-05-13 23:39 | Emergency (ER) | payer OTHER ==
[2024-05-14] MEDS: HYDROmorphone 1 MG/ML CARPUJECT IM STA (00:30)
--- NOTE | 2024-05-14 00:45 | CT Report ---
PROCEDURE: Head WO INDICATIONS: fell, struck head, concussive sxs and marked BEAR TECHNIQUE: Noncontrast 4.5 mm thick angled axial sections acquired from the foramen magnum to the vertex. For r adiation dose reduction, the following was used: automated exposure control, adjustment of mA and/or kV according to patient size. COMPARISON: None. FINDINGS: Image quality: Diagnostic CSF spaces: Basal cisterns are patent. Lateral ventricles are symmetric. Volume: Generally maintained Brain: No acute hemorrhage. No gross loss of burrell-white differentiation. Craniofacial structures: No significant paranasal sinus opacity. IMPRESSION: No acute intracranial hemorrhage. Reviewed by: Fei Vásquez MD on 05/14/2024 12:43 AM PDT Approved by: Fei Vásquez MD on 05/14/2024 12:43 AM PDT Station ID: [id number]
--- NOTE | 2024-05-14 00:49 | ED Physician Documentation ---
PD HPI Fall - Stated complaint Stated Complaint: HEAD INJ - Chief complaint Chief Complaint: Ext Problem - History obtained from History obtained from: Patient - History of Present Illness Fall distance: Standing position (she was 3 steps up on a stepladder at work, felt her right leg increased pain and "gave out" leading to falling backward and struck back of head on 3 steps. Dazed, nausea, blurred vision. No LOC. Concerned that pain and weakness of right hip area is worsening as well.) Timing - onset: How many hours ago (1-2), Today Injury(ies) location: Head Associated symptoms: AMS (dazed and feels less focused thinking), Nausea / vomiting (nausea without vomiting), Other (blurred vison both eyes.). No: LOC, Neck pain Worsens with: Palpation Contributing factors: No: Anticoagulated Review of Systems Musculoskeletal: reports: Back pain (has ongoing waylon in lower back and pelvic area, sees back pain specialist in [facility]. 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, Other : Chronic bladder infection HEENT: None Psych: Depression, Anxiety, Panic attacks, Claustrophobia Musculoskeletal: Osteoarthritis, Fibromyalgia, Chronic back pain, Other (lupus) Derm: None - Past Surgical History Past Surgical History: Yes General: Cholecystectomy, Appendectomy, Colonoscopy, EGD Ortho: Arthroscopic surgery /BUSINESS DEVELOPMENT: Other HEENT: Other - Present Medications Home Medications: Ambulatory Orders Medication Instructions Recorded Confirmed Propranolol ER [Inderal LA] 60 mg PO DAILY 09/18/23 05/04/24 Venlafaxine ER [Effexor ER] 225 mg PO DAILY 09/18/23 05/04/24 Acetaminophen [Acetaminophen Extra 1 tab PO PRN PRN 11/22/23 05/04/24 Strength] Ibuprofen [Advil] 1 tab PO PRN PRN 11/22/23 05/04/24 ONDANSETRON ODT Prepack 2 [ZOFRAN 1 tab PO DAILY 11/22/23 05/04/24 ODT] oxyCODONE [Roxicodone] 5 - 10 mg PO Q6H PRN #14 tablet 04/29/24 05/04/24 MDD 6 predniSONE [Deltasone] 10 mg PO [id number] #42 tab 04/29/24 05/04/24 oxyCODONE [Roxicodone] 5 mg PO Q6H PRN #16 tablet 05/14/24 - Allergies Allergies/Adverse Reactions: Allergies Allergy/AdvReac Type Severity Reaction Status Date / Time amoxicillin Allergy Unknown Verified 05/13/24 23:48 doxycycline Allergy Unknown Verified 05/13/24 23:48 Iodinated Contrast Media Allergy Hives Verified 05/13/24 23:48 lidocaine Allergy Edema Verified 05/13/24 23:48 Penicillins Allergy Rash Verified 05/13/24 23:48 - Social History Does the pt smoke?: No Smoking Status: Never smoker Does the pt drink ETOH?: No Does the pt have substance abuse?: Yes - Immunizations Immunizations are current?: Yes - POLST Patient has POLST: No PD ED PE NORMAL - Vitals Vital signs reviewed: Yes - General General: Alert and oriented X 3, Well developed/nourished - HEENT HEENT: Other (bacdk of head tender occipital area. ) - Neck Neck: Supple, no meningeal sign, No bony TTP - Back Back: No spinal TTP - Derm Derm: Normal color, Warm and dry, No rash - Neuro Neuro: Alert and oriented X 3, Normal speech, Other (normal knee reflexes. Less sensation to touch in gluteal and upper posterior thigh area on right mainly. Slightly less sensation left. Normal sensation and motor through legs in L2-S1 areas. ) Results - Vitals Vitals: Vital Signs - 24 hr 05/13/24 05/13/24 23:45 23:52 Temperature 36.8 C Heart Rate 99 93 Respiratory 18 Rate Blood Pressure 133/90 H O2 Saturation 100 Oxygen O2 Source Room air - Rads (name of study) head CT Relevant Findings:: Prelim report reviewed, EMP independent interpretation of test (no ICH nor fractures.) PD Medical Decision Making - ED course Complexity details: reviewed old records (Pt pulled up MRI reports from her MyChart and I was able to see reports of pelvic MRI 03/19/2024 showing sacroliitis around S2 and generally, with active inflammation right side, not active on left. MRI lumbar January 2023 was without abnormal findings. ), reviewed results (head CT without acute findings. ), considered differential (states her pain in low back, with numbness in back thigh and groin are worsening in general and also notably worse the past week since off NSAIDs, steroids in prep for a sacral injection/catheter this coming week. [place] her leg gave out coming down ladder and struck back of head with dazed/BEAR/blurred), d/w patient ED course: I feel the increase in her symptoms make sense in light of worsening condition overall and MRI 2 months ago showing still active sacroiliitis on the right and worsened currently by reduction in her anti-inflammatory pain meds of NSAIDs and steroids in preparation for an upcoming injection in the sacroiliac area this coming week. Worsening of the sacral plexus and S2 nerve root without other areas being affected predominantly I do not feel needs reevaluation urgently with repeat imaging. At least in 2022 on an MRI of her lumbar area, there were no acute abnormalities but with the sacroiliac inflammation, there is not any central canal still in that area in the interventions would be local treatment or anti- inflammatories which is already scheduled for procedure this week. She is not having any lumbar symptoms with normal sensation movement and reflexes in the lower legs. Departure - Departure Disposition: 01 Home, Self Care Clinical Impression: Fall from ladder, Head injury, Mild concussion, Acute exacerbation of chronic low back pain, Neuropathy, sacral plexus Condition: Stable Record reviewed to determine appropriate education?: Yes Prescriptions: oxyCODONE [Roxicodone] 5 mg PO Q6H PRN #16 tablet PRN Reason: Pain Comments: Your head CT is normal without any signs of bony injury/fracture or intracranial bleeding or localized swelling. This is different from having mild concussive symptoms where your headache and blurred vision and being a little off may continue for 2 to 3 days at times. Uncommonly longer. It can make sense that you are sacral plexus nerve irritation is increased with you off of your steroid and NSAIDs in preparation for the injection procedure you are having this week. That could account for your increased symptoms though just generally worsening of the sacroiliitis could be irritating the nerves more as well. As you are slated for an injection in the area this coming week and your symptoms seem consistent with nerve root irritation previously demonstrated on your MRI from February, I do not feel there is a emergency/urgency and repeat imaging or tests out of the ER right now. I would contact your back pain specialist tomorrow to discuss it. I do not imagine they be able to change the timing of your procedure in [place] if it is already coming up this week. But still worthy of discussing with your back specialist. Continue with your other usual medicines and still avoid the steroids and NSAIDs and aspirin as directed on your preprocedure instructions. It does sound like you are perhaps using bit more Tylenol than would commonly be recommended. The usual recommendation is below 3000 mg daily so 2 extra strength 3 times a day. To that a short term course or prescription for oxycodone seems appropriate to me since you are not being able to take your other medicines and lieu of the upcoming procedure. I sent a prescription to your preferred pharmacy. Again notify your back specialist about my prescription so your pain specialist is informed. Forms: PCP List
[2024-05-14] MEDS: oxyCODONE/ACET 5/325 Prepack 4 PO STA (01:00)
[2024-05-14 01:17] VITALS: BP 122/86; O2SAT 98
== END 2024-05-14 01:13 | disposition home or self-care (01) ==
LOC: ED 23:39
DX: S06.0X0A Concussion without loss of consciousness, initial encounter (principal); W11.XXXA Fall on and from ladder, initial encounter; Y92.512 Supermarket, store or market as the place of occurrence of the external cause; Y99.0 Civilian activity done for income or pay; M54.50 Low back pain, unspecified; G89.29 Other chronic pain; G54.1 Lumbosacral plexus disorders; M46.1 Sacroiliitis, not elsewhere classified
CPT/HCPCS: 70450; 96372; 99284; J1170